=== PATIENT | male | born 1955 | race Caucasian/White ===

== ENCOUNTER → 2020-05-04 07:05 | Outpatient (CLI) | payer OTHER, SELFPAY ==
--- NOTE | 2020-05-04 08:05 | CT_ITS ---
STUDY: LOW DOSE CT LUNG CANCER SCREENING REASON FOR EXAM: Male, 64 years old. TOBACCO USE- QUIT SMOKING 6 MON AGO,55 YR SMOKER X 1-2 PPD, EI=493 RADIATION DOSAGE (If Supplied By Facility): CTDIvol = ( 3.02 ) mGy, DLP = ( 95.15 ) mGycm TECHNIQUE: No contrast was administered. Low dose technique was utilized (average mAS-38 and kVp 120). 1.25 mm axial source images with a slice interval of 1.25-mm were reconstructed in lung windows. 2.5 mm axial source images with a slice interval of 2.5-mm were reconstructed in lung windows. 5.0 mm axial source images with a slice interval of 5.0-mm were reconstructed in soft tissue windows. Nodule measured using lung windows on PACS and/or independent workstation with automated measurement of minimum and maximum diameter. Nodule measurement reported as average diameter rounded to the nearest whole number. Growth is defined as an increase ins size of greater than 1.5 mm. COMPARISON: None. NODULES: No suspicious nodules are seen. Emphysema: Mild increased markings in the superior lateral aspect of the superior segment of the right lower lobe. This is suggestive of a mild degree of scarring. Aorta: Focal atherosclerotic plaque formation of the aortic arch. Coronary arteries: Coronary artery calcification. Mediastinal nodes: Small benign-appearing abdominal lymph nodes. Other chest and abdominal findings: Degenerative changes of the thoracic vertebrae. CT/Low Dose CT Lung Screening IMPRESSION: Lung-RADS category 2 - Continue annual screening with LDCT in 12 months. IMPORTANT NOTES FOR USE: ACR Lung-RADS Version 1.0 Assessment Categories Release Date: March 02, 2014 Category: Coded 0-4 bases on nodule(s) with highest degree of suspicion. Negative screen is defined as categories 1 and 2; a positive screen is defined as categories 3 and 4. Category 3 and 4A nodules that are unchanged on interval CT should be coded as category 2, and individuals returned to screening in 12 months. Category 4X: Category 3 or 4 nodules with additional imaging findings that increase the suspicion of lung cancer, such as spiculation, GGN that doubles in size in 1 year, enlarged lymph notes, etc. Category Modifiers: S (significant finding unrelated to lung cancer) and C (prior history of treated lung cancer) may be added to the 0-4 Lung-RADS Electronically Signed: Gino Skaggs, at 14:24 EDT , Service support ,
--- NOTE | 2020-05-05 08:42 | PFT ---
INTRODUCTION: The patient is a 64-year-old male that presents for pulmonary function studies secondary to a diagnosis of wheezing. Respiratory therapy reports good patient effort. Bronchodilators were used during testing. INTERPRETATION: Forced expiration spirometry demonstrates the presence of a mild large airways obstructive ventilatory defect. There was a significant response to aerosolized bronchodilators. Spirograms are of good quality and do not plateau indicating slow emptying of the lungs. Body plethysmography was performed and reveals an elevated TLC and RV, indicative of underlying hyperinflation and air trapping. Diffusing capacity by single breath CO is within normal limits. IMPRESSION: Partially reversible mild large airways obstructive ventilatory defect with associated hyperinflation and air trapping. Diffusing capacity is preserved.
== END ==
PROVIDERS: PCP Student in an Organized Health Care Education/Training Program; Referring Provider Student in an Organized Health Care Education/Training Program; Visit Provider Student in an Organized Health Care Education/Training Program
DX: Z12.2 Encounter for screening for malignant neoplasm of respiratory organs (principal); R06.2 Wheezing; Z87.891 Personal history of nicotine dependence
CPT/HCPCS: 94060; 94726; 94729; G0297

== ENCOUNTER 2021-05-26 15:18 | Observation (INO) | payer OTHER, SELFPAY ==
[2021-05-26] VITALS (8 sets, daily range): BP systolic 108–141; BP diastolic 60–88; PULSE 54–74; RESP 16–18; TEMP 36.4–36.8; O2SAT 95–100; BMI 27.2
--- NOTE | 2021-05-26 15:19 | HP.PCM_ITS ---
HPI - General General Date of Admission: 05/26/21 HPI Narrative LEILANI GRIDER, is a 65 M who presents direct admit from my office for bleeding and bladder mass and severe abdominal pain. [facility] Medical History (Updated 05/26/21 @ 15:[address] Freddie Hinkle MD) Hearing loss, left Hearing loss, right Home Medications aspirin [Baby Aspirin] 81 mg PO DAILY 05/26/21 [History Last Taken 05/26/21 08:00] atorvastatin 10 mg PO DAILY 05/26/21 [History Last Taken 05/26/21 08:00 10 MG] Allergy/AdvReac Type Severity Reaction Status Date / Time No Known Allergies Allergy Verified 05/26/21 15:15 Social History (Updated 05/26/21 @ 15:13 by Faustino Munoz) Smoking Status: Current every day smoker tobacco type: cigars ROS Constitutional Constitutional: Denies chills, fever(s) or malaise Eyes Eyes: Denies blurry vision or change in vision ENT HEENT: Reports none Cardiovascular Cardiovascular: Denies chest pain or palpitations Respiratory/Chest Respiratory/Chest: Denies cough or shortness of breath with exertion Gastrointestinal Gastrointestinal: Denies abdominal pain, constipation or diarrhea Musculoskeletal Musculoskeletal: Denies back pain, joint stiffness or joint swelling Integumentary Integumentary: Denies dry skin, jaundice, lesions or rash Neurologic Neurologic: Denies confusion, syncope or weakness Psychiatric Psychiatric: Reports none; Denies anxiety or depression Endocrine Endocrinology: Denies excessive sweating, fatigue or flushing Hematologic/Lymphatic Hematologic/Lymphatic: Denies anemia, easy bleeding or easy bruising Vital Signs Vital Signs Vital Signs: Weight Weight: 76.5 kg Body Mass Index (BMI) 27.2 Physical Exam Const alert and oriented x3 General Appearance: cooperative HEENT normocephalic, head/scalp atraumatic, EAC's normal and TM's normal bilaterally Eyes PERRL and EOMs intact bilaterally Pupil: sluggish Neck no lymphadenopathy, supple and no JVD General: trachea midline Lymph Lymphatic: no lymphadenopathy noted, lymphedema and lymphadenopathy Resp normal respiratory effort, normal air movement and clear to auscultation bilaterally Cardio regular rate, regular rhythm and peripheral pulses 2+ throughout GI soft to palpation, non-tender and non-distended Extremity normal capillary refill and no clubbing, cyanosis or edema General Extremity: no tenderness to palpation of joints or extremities Skin no rashes or lesions noted General Skin Exam: turgor normal Lesions: no lesions Rashes: no rashes Neuro CN's II-XII intact bilaterally Speech: speech normal Motor Exam: strength 5/5 throughout; Negative for general weakness Psych thought process normal, cooperative and affect normal Appearance: appropriate Assessment & Plan Assessment/Plan (1) Gross hematuria: (2) Bladder mass: PLAN: plan to take to surgery today for bleeding and bladder mass, npo.
[2021-05-26] MEDS: 0.9% Normal Saline 1,000 ML 125 ML IV ×2 (16:08→20:25)
--- NOTE | 2021-05-26 17:27 | DCINST_ITS ---
Discharge Instructions Diet Discharge Diet: No restrictions Activity Discharge Activity: Return to Normal Activity and May Not Drive (while taking narcotic pain medications.) Dressing / Incision Call your doctor if you observe: Fever of 101 or Higher Follow Up Care Please Follow Up With: Freddie Hinkle MD When: Call [phone] for an appointment Test Results: Test results from this visit will be discussed in further detail at your follow-up appointment, if applicable. Discharge Plan Admission Admit Date/Time: 05/26/21 15:18 Primary Reason for Your Visit: Trans urethral resection of bladder tumor Attending Provider: Freddie Hinkle Primary Care Provider: Paulino Troy NP Discharge Orders/Prescriptions Prescriptions: New ciprofloxacin HCl [Cipro] 500 mg tablet 500 mg PO BID Qty: 10 RF: 0 oxycodone-acetaminophen 5-325 mg tablet 1 tab PO Q6H PRN (Reason: pain) 7 Days Qty: 14 RF: 0 Continued atorvastatin 10 mg Tablet 10 mg PO DAILY RF: 0 Held aspirin 81 mg Tablet,Chewable 81 mg PO DAILY RF: 0 Hold Instructions: Resume on 06/09/21. Referrals / Follow Up: Freddie Hinkle MD [STAFF PHYSICIAN] - Paulino Troy NP, CHEMIST WATER PURIFICATION-C [Primary Care Provider] -
--- NOTE | 2021-05-26 17:35 | BLB_PTH ---
PATIENT: LEILANI GRIDER LOC: [facility] U#:[id number] AGE/SX: 65/M [place] [facility] [place]: Dr. Freddie Hinkle MD : 1955 BED: 1 DIS: 05/27/2021 SPEC #: [id number] RECD: 05/27/21 12:38 STATUS: WANG DHALIWAL #: [id number] DAVI: 05/26/21 17:[address]: Freddie Hinkle DEPT: SURGICAL PATHOLOGY RECD BY: Jv Liriano ENTERED: 05/27/21 14:10 SP TYPE: TURB OTHR DR: Paulino Troy, TESTING LEAD-C Tissues: Urinary bladder, NOS Procedures: Surgery Specimen Level V HEADER OPERATION: Cystoscopy, evacuation hematoma / blood clots, cauterization of bleeding, resection of bladder tumor PRE-OP DIAGNOSIS: Gross hematuria, bladder mass TISSUE SUBMITTED: Bladder tumor MICROSCOPIC DIAGNOSIS Urinary bladder tumor, TUR: Papillary urothelial carcinoma. See cancer checklist below. AM:richa 05/30/2021 COMMENT BLADDER CANCER (TUR) SUMMARY Procedure: Transurethral resection of bladder (TURBT) Tumor site: Not specified Histologic type: Papillary urothelial carcinoma Histologic grade: 1 (WHO low grade) Tumor configuration: Papillary Muscularis propria presence: Detrusor muscle is not present. Lymphvascular invasion: Not identified Tumor extension: Noninvasive, confined to urothelium. Additional pathologic findings: None The above summary is in compliance with [employer] of [employer] Path[employer] (CAP) Cancer Protocols Checklist and [place] Joint Committee on Cancer (AJCC), Staging Manual, 8th Ed. Case has been reviewed in consultation with Dr. Drake who concurs with the above diagnosis. IDC:SJ MICROSCOPIC DESCRIPTION Slides are reviewed. GROSS DESCRIPTION Received in fixative is one container labeled with the patient's name and designated bladder tumor. The specimen consists of three variable sized fragments of christian soft tissue measuring in aggregate 1.5 x 1 x 0.3 cm. Also present in the container are multiple fragments of blood clot measuring in aggregate 7 x 7 x 3 cm. Emu Farmer sections are submitted in four cassettes as follows: 1 ? soft tissue, 2-4 ? blood clot. / STEFAN:richa 05/27/21 TC:0 CPT: 35229
--- NOTE | 2021-05-26 18:28 | OP.PCM_ITS ---
Report of Operation Date of Procedure: 05/26/21 Pre-Operative Diagnosis: Hemorrhagic bladder and bladder tumor bleeding Post-Operative Diagnosis: Same Surgery/Procedure Performed:: Cystoscopy evacuation of blood clots, transurethral resection of a medium-sized bladder tumor in the left lateral wall the bladder Description of Surgical Findings:: This is a 65-year-old male who I saw today in my office for gross hematuria he was in clot retention with clots Slater inside his bladder was not been able to urinate. Because of this we did a cystoscopy in the office which demonstrates a bunch of clots within the bladder he was having severe spasms from this so I just admitted to the patient to the hospital and today were taken to surgery to evacuate all the clots and resect the tumor. Patient was taken back to the operating room at the smooth induction of anesthesia he was placed in dorsolithotomy position. The penis and testicles were prepped and draped in the usual sterile fashion went into the bladder with a 21 Montserratian rigid cystourethroscope upon entering the bladder he had a significant bout of clots within the bladder. I then removed the scope and then went in with a 26 Montserratian continuous flow resectoscope once inside the bladder I used an [employer] evacuator and evacuated out all the clots within the bladder had a significant bowl full clots within the bladder then with continuous irrigation I then went into the bladder and identified a tumor in the left lateral wall the bladder is about a 2-1/2 cm tumor that was actively bleeding I then used a loop bipolar resectoscope and resected this tumor down to the muscle fibers fortunately the tumor did not appear invasive only a superficial tumor that was bleeding. After resecting the tumor and cauterized in the the base of the tumor there was no more bleeding the left and right ureteral orifice were not involved the left ureter orifice was very close to the resection site was not involved. The bladder was somewhat trabeculated no other tumors or stones tumors or stones were seen within the bladder he did have a few diverticuli. The prostate was moderate moderately enlarged but not obstructive. I then drained the bladder but all the specimen and the blood altogether as a specimen for the pathologist and then placed a 20 Montserratian catheter bladder overnight. Patient anesthetic reversed taken back to PACU in good condition. Surgeon: bobby Type of Anesthesia: General Drains: 20 fr Admit VTE Documentation VTE Present on Admission: No VTE Mechan Device Prophylaxis: SCD's
[2021-05-26] MEDS: HYDROcodone Bitartrate/Apap 5/325 Tablet PO (20:26)
[2021-05-26] MEDS: Atorvastatin Calcium 10 MG Tablet PO (22:16)
[2021-05-26] MEDS: Cefazolin 1 GM/50 ML BAG IV (22:16)
[2021-05-27 00:20] VITALS: BP 97/58; PULSE 65; RESP 16; TEMP 37.1; O2SAT 97
[2021-05-27 04:06] VITALS: BP 115/69; PULSE 64; RESP 16; TEMP 36.8; O2SAT 98
[2021-05-27] MEDS: 0.9% Normal Saline 1,000 ML 125 ML IV (04:13)
[2021-05-27] MEDS: Cefazolin 1 GM/50 ML BAG IV (05:49)
--- NOTE | 2021-05-27 07:29 | DS.PCM_ITS ---
Providers Date of Admission: 05/26/21 Primary Care Physician: Paulino Troy NP-C Reason For Visit: GROSS HEMATURIA, URINE RETENTION/BLADDER TUMOR Diagnosis Discharge Diagnosis (1) Gross hematuria: Status: Acute Code(s): R31.0 - Gross hematuria (2) Bladder mass: Status: Acute Code(s): N32.89 - Other specified disorders of bladder Medications at Discharge Home Medications aspirin 81 mg PO DAILY 05/26/21 atorvastatin 10 mg PO DAILY 05/26/21 ciprofloxacin HCl [Cipro] 500 mg PO BID #10 tab 05/26/21 oxycodone-acetaminophen 1 tab PO Q6H PRN 7 Days #14 tab 05/26/21 Hospital Course Summary of Care Provided Hospital Course: Patient was taken to the operating room last night evacuated blood clots cauterized bleeding resected a tumor urine is clear today we will DC Slater and he can go home after he voids. Physical Exam Const alert and oriented x3 General Appearance: cooperative HEENT normocephalic, head/scalp atraumatic, EAC's normal and TM's normal bilaterally Eyes PERRL and EOMs intact bilaterally Pupil: sluggish Neck no lymphadenopathy, supple and no JVD General: trachea midline Lymph Lymphatic: no lymphadenopathy noted, lymphedema and lymphadenopathy Resp normal respiratory effort, normal air movement and clear to auscultation bilaterally Cardio regular rate, regular rhythm and peripheral pulses 2+ throughout GI soft to palpation, non-tender and non-distended Extremity normal capillary refill and no clubbing, cyanosis or edema General Extremity: no tenderness to palpation of joints or extremities Skin no rashes or lesions noted General Skin Exam: turgor normal Lesions: no lesions Rashes: no rashes Neuro CN's II-XII intact bilaterally Speech: speech normal Motor Exam: strength 5/5 throughout; Negative for general weakness Psych thought process normal, cooperative and affect normal Appearance: appropriate Weight / BMI Weight Weight: 76.5 kg Body Mass Index (BMI) 27.2 D/C Instructions Discharge Diet: No restrictions Call your doctor if you observe: Fever of 101 or Higher Please Follow Up With: Freddie Hinkle MD When: Call [phone] for an appointment Meaningful Use Info Meaningful Use Diagnoses (Choose all that apply): None applicable Discharge Plan Admission Admit Date/Time: 05/26/21 15:18 Primary Reason for Your Visit: Trans urethral resection of bladder tumor Attending Provider: Freddie Hinkle Primary Care Provider: Paulino Troy NP Discharge Orders/Prescriptions Prescriptions: New ciprofloxacin HCl [Cipro] 500 mg tablet 500 mg PO BID Qty: 10 RF: 0 oxycodone-acetaminophen 5-325 mg tablet 1 tab PO Q6H PRN (Reason: pain) 7 Days Qty: 14 RF: 0 Continued atorvastatin 10 mg Tablet 10 mg PO DAILY RF: 0 Held aspirin 81 mg Tablet,Chewable 81 mg PO DAILY RF: 0 Hold Instructions: Resume on 06/09/21. Referrals / Follow Up: Freddie Hinkle MD [STAFF PHYSICIAN] - Paulino Troy NP, FISHING ROD MECHANIC-C [Primary Care Provider] - Disposition Discharge Orders: Discharge Patient (Routine); Ordered 05/27/21 Ordered By: Dr. Freddie Hinkle
[2021-05-27 08:36] VITALS: BP 115/61; PULSE 83; RESP 18; TEMP 36.8; O2SAT 98
--- NOTE | 2021-05-27 10:56 | CASEMGMT ---
MELANY [place]ILLA Assessment: Face to Face with pt for initial transition planning/care coordination assessment. RN DAISY introduced self and role at [facility], pt voices understanding and consents to assessment. Pt is A/O x4 and answers all questions appropriately at this time. Pt standing in room, denies need to sit down for assessment. Care providers, pharmacy, and demographics verified/updated. Admitting Dx: gross hematuria, urine retention/bladder tumor PCP:Paulino Troy UNIVERSITY ADMINISTRATIVE ASSISTANT Specialists: nathalia Hinkle Preferred Pharmacy: [facility] Insurance: MMO Prescription Benefit: yes LW/HPOA: Pt denies having LW/DPOA. LNOK: April Spann, Living Arrangements: Pt lives with iin a two story house with 4 steps to enter with rail. Pt reports being I in ADL's and denies concerns at home. Transportation: Pt drives self and denies concerns with transportation. DME/HHC/SNF: Pt has a cane and walker at home but does not use. Pt denies hx of SNF or HHC. Pt states no concerns with going home at time of dc. 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 Pt states no further concerns/needs. CM to follow. Advised pt to ask CM if any further question/concerns/needs arise, voices understanding. Pt Goal: Home Plan: Home with support.
--- NOTE | 2021-05-27 11:34 | CHAPLAIN ---
Type of Pastoral Visit _x__ Initial Visit ___ Follow-up Visit ___ On-call Visit ___ General Patient Visit ___ Spiritual Assessment ___ Family Conference ___ Bereavement ___ Rapid Response ___ Code Blue ___ Other (describe below) Pastoral Care Referral From _x__ Patient ___ Family ___ Nurse ___ Physician ___ Seed Trucker ___ Roll Finisher ___ Other (describe below) Sacrament/Intervention _x__ Active listening ___ Anointing ___ Shinto ___ Bereavement ___ Communion ___ Tejal exploration ___ _x__ Life review _x__ Prayer ___ Reconciliation ___ Sacrament of Sick ___ Supportive presence ___ Wedding ___ Other (describe below) Pastoral Comments patient very happy about speedy resolution and procedure for his need; pt eager to go home too
[2021-05-27 11:42] VITALS: BP 119/56; PULSE 78; RESP 18; TEMP 36.9; O2SAT 99
== END 2021-05-27 11:42 | disposition home or self-care (01) ==
PROVIDERS: Admitting Provider Urology; PCP Nurse Practitioner Primary Care; Visit Provider Urology
PROC: (CPT 52214; principal; 2021-05-26 17:35)
DX: C67.9 Malignant neoplasm of bladder, unspecified (principal); H91.93 Unspecified hearing loss, bilateral; Z79.82 Long term (current) use of aspirin; Z79.899 Other long term (current) drug therapy; F17.290 Nicotine dependence, other tobacco product, uncomplicated
CPT/HCPCS: 52001; 52235; 88307; 96361; 96365; 96366; 99218; 99406; J7030; J7120; G0378; G0379; J2405

== ENCOUNTER → 2021-09-22 | Outpatient (CLI) | payer OTHER, SELFPAY ==
--- NOTE | 2021-09-22 09:24 | CYSPIN_PTH ---
PATIENT: LEILANI GRIDER LOC: [facility] U#:[id number] AGE/SX: 66/M ROOM: RE09/22/[address]: Dr. Freddie Hinkle MD : 1955 BED: DIS: 09/22/2021 SPEC #: [id number] RECD: 09/23/21 10:44 STATUS: WANG REJose #: [id number] DAVI: 09/22/21 09:[address]: Freddie Hinkle DEPT: CYTOLOGY RECD BY: Ivette Chao ENTERED: 09/23/21 10:45 SP TYPE: CYSPIN FL OTHR DR: Paulino Troy, FACING BASTER-C Tissues: Urine Procedures: Pap Stain (control) Special Stain Group II Cytospin Fluid HEADER OPERATION: Not noted PRE-OP DIAGNOSIS: Malignant neoplasm of bladder TISSUE SUBMITTED: Urine for cytology DIAGNOSIS CYTOLOGY Urine for cytology (cytospin): Negative for malignant cells. AM:richa 09/26/2021 CYTOLOGY STUDY Slides are reviewed. CYTOLOGY GROSS Received is 80 ml of yellow gold cloudy fluid labeled with the patient's name and and designated per the requisition as urine. Submitted for cytology preparation. / richa 09/23/2021 TC:5 CPT: 19575
[2021-09-22 18:07] LABS: Cytology, Body Fluid / CSF SEE PATHOLOGY REPORT
== END | disposition home or self-care (01) ==
LOC: LABSPEC 17:08
PROVIDERS: PCP Nurse Practitioner Primary Care; Visit Provider Urology
DX: C67.2 Malignant neoplasm of lateral wall of bladder (principal)
CPT/HCPCS: 88108; 88313

== ENCOUNTER 2022-01-05 16:33 | Outpatient (CLI) | payer OTHER, SELFPAY ==
--- NOTE | 2022-01-05 08:45 | BLA_PTH ---
PATIENT: LEILANI GRIDER LOC: [facility] U#:[id number] AGE/SX: 66/M ROOM: RE01/05/[address]: Dr. Freddie Hinkle MD : 1955 BED: DIS: 01/05/2022 SPEC #: [id number] RECD: 01/06/22 09:16 STATUS: WANG REJose #: [id number] DAVI: 01/05/22 08:[address]: Freddie Hinkle DEPT: SURGICAL PATHOLOGY RECD BY: Ivette Chao ENTERED: 01/06/22 09:16 SP TYPE: BLADDER BX OTHR DR: Paulino Troy, 911 EMERGENCY SERVICES DISPATCHER-C Tissues: Urinary bladder, NOS Procedures: Surgery Specimen Level IV HEADER OPERATION: Bladder biopsy PRE-OP DIAGNOSIS: L67.2 TISSUE SUBMITTED: Bladder biopsy MICROSCOPIC DIAGNOSIS Bladder, biopsy: Noninvasive papillary urothelial carcinoma, grade 1/3. See comment. SJ:richa 01/09/2022 COMMENT Detrusor muscle is not present in the specimen. Angiolymphatic invasion is not identified. Please make reference to previous specimen ([id number]) urinary bladder tumor, TUR with diagnosis of ?papillary urothelial carcinoma.? Case has been reviewed in consultation with Dr. Baldwin who concurs with the above diagnosis. IDC:AM MICROSCOPIC DESCRIPTION Slides are reviewed. GROSS DESCRIPTION Received in fixative is one container labeled with the patient's name and designated bladder biopsy. The specimen consists of one irregular fragment of light christian soft tissue measuring 0.1 cm in greatest dimension. The specimen is totally submitted in one cassette. / SJ:richa 01/06/2022 TC:0 CPT: 36287
== END 2022-01-05 23:59 | disposition home or self-care (01) ==
LOC: LABSPEC 16:34
PROVIDERS: PCP Nurse Practitioner Primary Care; Visit Provider Urology
DX: C67.2 Malignant neoplasm of lateral wall of bladder (principal)
CPT/HCPCS: 88305

== ENCOUNTER → 2022-04-11 | Outpatient (CLI) | payer OTHER, SELFPAY ==
--- NOTE | 2022-04-11 08:45 | BLA_PTH ---
PATIENT: LEILANI GRIDER LOC: [facility] U#:[id number] AGE/SX: 66/M ROOM: RE04/11/[address]: Dr. 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 See comment. STEFAN:richa 04/13/2022 COMMENT Lamina propria invasion is not identified. Detrusor muscle is not present in the specimen. No angiolymphatic invasion is noted. Please make reference to previous specimens ([id number]) urinary bladder tumor, TUR with diagnosis of ?papillary urothelial carcinoma? and ([id number]) bladder, biopsy with diagnosis of ?noninvasive papillary urothelial carcinoma.? MICROSCOPIC DESCRIPTION Slides are reviewed. GROSS DESCRIPTION Received in fixative is one container labeled with the patient's name and designated bladder biopsy. The specimen consists of one irregular fragment of light christian soft tissue that measures 0.3 x 0.2 x 0.1 cm. The specimen is totally submitted in one cassette. / SJ:richa 04/12/2022 TC:0 CPT: [id number]
== END | disposition home or self-care (01) ==
LOC: LABSPEC 16:03
PROVIDERS: PCP Nurse Practitioner Primary Care; Referring Provider Urology; Visit Provider Urology
DX: C67.2 Malignant neoplasm of lateral wall of bladder (principal)
CPT/HCPCS: 88305

== ENCOUNTER → 2023-11-06 | Outpatient (CLI) | payer MEDICARE, OTHER, SELFPAY ==
--- NOTE | 2023-11-06 17:48 | CT_ITS ---
EXAM: CT ABDOMEN AND PELVIS WITHOUT AND WITH INTRAVENOUS CONTRAST CLINICAL INDICATION: HEMATURIA . Bladder cancer. TECHNIQUE: Helically acquired images were obtained of the abdomen and pelvis without and with intravenous contrast. This CT exam was performed using one or more of the following dose reduction techniques: automated exposure control, adjustment of the mA and/or kV according to patient size, and/or use of iterative reconstruction technique. CONTRAST: IV 100mL Isovue-300 RADIATION DOSE: CTDIvol = 15.28 mGy, DLP = 1849.50 mGy-cm COMPARISON: No relevant prior studies available. FINDINGS: LOWER THORAX: Unremarkable. Lung bases are clear. No cardiomegaly. No significant pericardial effusion. ABDOMEN: LIVER: There is hepatomegaly. GALLBLADDER AND BILE DUCTS: Unremarkable. No calcified gallstones. No gallbladder distention or wall edema. No intra- or extrahepatic biliary ductal dilation. PANCREAS: Unremarkable. No focal cystic or solid mass. SPLEEN: Unremarkable. Normal size without focal cystic or solid mass. ADRENALS: Unremarkable. No nodules. KIDNEYS AND URETERS: Unremarkable. Normal renal size and position. No hydronephrosis. STOMACH AND BOWEL: Evaluation of the GI tract is limited by absence of oral contrast. Cannot exclude stomach wall thickening. No dilated loops of bowel or evidence for obstruction. Cannot exclude segmental thickening of the louis of the small or large bowel. Cannot exclude enteritis or colitis. Moderate diffuse fecal retention. Diverticulosis without definite diverticulitis. Appendix within normal limits. PELVIS: APPENDIX: No evidence of acute appendicitis. BLADDER: Markedly abnormal bladder. There is a Slater catheter. Bladder is incompletely distended but even so there appears to be marked wall thickening and cannot exclude intraluminal contents which could be blood or mass. Apparently patient is known to have bladder cancer, and cystoscopy should be considered. 2.6 cm diverticulum of the left side of the bladder. REPRODUCTIVE: Unremarkable as visualized. No mass. ABDOMEN and PELVIS: INTRAPERITONEAL SPACE: Unremarkable. No ascites or other fluid collection. No free air. BONES/JOINTS: Unremarkable. No suspicious lytic or blastic abnormality. SOFT TISSUES: Unremarkable. No discrete abdominal or pelvic wall hernia. VASCULATURE: Prominent calcified plaque of the aorta and iliac arteries. No aneurysm. LYMPH NODES: Unremarkable. No enlarged lymph nodes. CT/CT Abd/Pelvis W/WO Contrast IMPRESSION: Abnormal bladder suboptimally evaluated on this noncontrast exam. Marked diffuse wall thickening and possible intraluminal contents. Cystoscopy should be considered. Electronically Signed: Bennett Owens MD at 20:01 EST ,
[2023-11-06 18:15] LABS: CREATININE FINGERSTICK 1.4 mg/dL (0.70-1.30)
--- OUTSIDE RECORDS SUMMARY | 2023-11-06 18:42 | XMS RPT_ITS | CCD ---
Author Name Unknown Address [address] [place] [address] Organization [facility] Care Team Providers Care Celery Wrapper Name Role Phone DANNY NAIK, CELINA Primary Care Physician ([phone] HAKEEM SCHERER, BA Alarcon Attending Unavail able CELINA SLAUGHTER Primary Care Unavailabl e CAROLE DOVE, DR TROY Cotter Attending Unavailable CELINA SLAUGHTER Primary Care Unavailabl e Medications Current Medications Medication Drug Class(es) Dates Sig (Normalized) Sig (Original) acetaminophen 500 mg oral tablet (2 sources) Start: 06-28-2020 Tylenol Extra Strength 500 mg oral tablet Dose : 1,000 mg = 2 tab(s), Oral, q4h, PRN as needed for pain, # 120 tab(s), 0 Refill(s) Start Date: 06/28/20 Status: Ordered aspirin 81 mg delayed release oral tablet (2 sources) Platelet Aggregation Inhibitor, Nonsteroidal Anti-inflammatory Drug Start: 04-28-2021 aspirin 81 mg oral delayed release tablet Dose : 81 mg = 1 tab(s), Oral, qDay, 0 Refill(s) Start Date: 04/28/21 Status: Ordered atorvastatin 10 mg oral tablet (2 sources) HMG-CoA Reductase Inhibitor Start: 09-01-2021 atorvastatin 10 mg oral tablet Dose : 10 mg = 1 tab(s), Oral, qDay, # 90 tab(s), 3 Refill(s), Pharmacy: [facility]/pharmacy #[id number], Hyperlipidemia, 166.37, cm, 04/28/21 8:10:00 EDT, Height, kg, 04/28/21 8:10:00 EDT, Dosing Weight Start Date: 09/01/21 Status: Ordered cephalexin 500 mg oral capsule (1 source) Cephalosporin Antibacterial Start: 10-29-2023 End: 11-08-2023 cephalexin 500 mg oral capsule Dose : 500 mg = 1 cap(s), Oral, QID, Take with a probiotic, X 10 day(s), # 40 cap(s), 0 Refill(s), 11/08/23 5:53:00 PM EST, 73.3 Start Date: 10/29/23 Stop Date: 11/08/23 Status: Ordered Problems Problem Classification Problem Date Documented Da te Episodic/Chronic Acute and chronic tonsillitis (2 sources) Exudate on tonsils 04-14-2020 Chronic Cancer; other and unspecified primary (2 sources) H/O: malignant neoplasm 03-30-2022 Episodic Chronic obstructive pulmonary disease and bronchiectasis (2 sources) Pulmonary emphysema 05-05-2020 Chronic Results Test Name Value Interpretation Reference Range Facil ity Vital Signs Date Time Vital Sign Value Performing Clinician Faci litjoslyn 10-29-2023 18:50-0500 Diastolic Blood Pressure Non-Invasive 82 mm[Hg] DR TROY LAM DO [facility] 10-29-2023 18:50-0500 Heart rate 63 /min DR TROY LAM DO [facility] 10-29-2023 18:50-0500 Reason For Taking VItal Signs DR TROY LAM DO [facility] 10-29-2023 18:50-0500 Respiratory rate 18 /min DR TROY LAM DO [facility] 10-29-2023 18:50-0500 Systolic Blood Pressure Non-Invasive 129 mm[Hg] DR TROY LAM DO [facility] 10-29-2023 16:45-0500 Body temperature 98.42 [degF] DR TROY LAM DO [facility] 10-29-2023 16:45-0500 Diastolic Blood Pressure Non-Invasive 80 mm[Hg] DR TROY LAM DO [facility] 10-29-2023 16:45-0500 Heart rate 68 /min DR TROY LAM DO [facility] 10-29-2023 16:45-0500 Respiratory rate 18 /min DR TROY LAM DO [facility] 10-29-2023 16:45-0500 Systolic Blood Pressure Non-Invasive 132 mm[Hg] DR TROY LAM DO [facility] Encounters Encounter Date Encounter Type Care Provider Facility Start: 11-02-2023 End: 11-02-2023 Emergency department patient visit BA PALACIO MD Facility:B Start: 10-29-2023 End: 10-29-2023 Emergency department patient visit DR TROY LAM DO Facility:B Start: 10-29-2023 End: 10-29-2023 Emergency department patient visit DR TROY LAM DO [facility] Start: 03-30-2022 End: 03-30-2022 Patient encounter procedure CELINA DELGADO SEARCH ANALYST-GARDENING INSTRUCTOR [facility] Procedures Date Procedure Procedure Detail Performing Clinician Finger structure (body structure) CELINA DELGADO SEARCH ANALYST-GARDENING INSTRUCTOR Immunizations Immunization Date Immunization Notes Care Provider Fa cili 07-28-2021 SARS-CoV-2 mRNA (tozinameran) vaccine CELINA DELGADO SEARCH ANALYST-GARDENING INSTRUCTOR [facility] 06-30-2021 SARS-CoV-2 mRNA (tozinameran) vaccine CELINA DELGADO SEARCH ANALYST-GARDENING INSTRUCTOR [facility] Payers Date Payer Category Payer Private Health Insurance [id number] 1955 Unknown [id number] 1955 Unknown [id number] Social History Date Type Detail Facility Start: 03-30-2022 End: 10-29-2023 Tobacco smoking status Ex-smoker (finding) [facility] Sex Assigned At Male [facility] Functional Status Date Assessment Result Facility 10-29-2023 Functional Status Standard Safet y ID band on, Call device within reach, Bed in low position, Wheels locked, Bedside Cart Locked, Visitor at bedside, Safety level maintained [facility] 10-29-2023 Functional Status [facility] Mental Status Date Assessment Result Facility 10-29-2023 Mental Status Orientation Oriented x 4 [facility] 10-29-2023 Mental Status [facility] Clinical Note 11-01-2023 Note Date & Type Note Facility 11-01-2023 Note . MICRO - Microbiology PROCEDURE: Urine Culture [*1] SOURCE: Urine, Clean Catch BODY SITE: COLLECTED DATE/TIME: 10/29/2023 17:08 EST RECEIVED DATE/TIME: 10/30/2023 13:37 EST START DATE/TIME: 10/30/2023 13:37 EST FREE TEXT SOURCE: FINAL REPORTS Final Report [] Verified Date/Time/Personnel: 11/01/2023 07:41 EST No growth at 48 hours. PRELIMINARY REPORTS Preliminary Report [] Verified Date/Time/Personnel: 10/31/2023 08:48 EST No growth to date Performing Locations *1: This test was performed at: [facility], [address] [place] [address], [facility] , [facility] Discharge instructions 10-29-2023 Note Date & Type Note Facility 10-29-2023 Hospital Discharg e instructions Patient Education 10/29/2023 17:53:48 Bladder Infection, Male (Adult) Bladder Infection, Male (Adult) You have a bladder infection. Urine is normally free of bacteria. But bacteria can get into the urinary tract from the skin around the rectum or it may travel in the blood from elsewhere in the body. This is called a urinary tract infection (UTI). An infection can occur anywhere in the urinary tract. It could be in a kidney (pyelonephritis)or in the bladder (cystitis) and urethra (urethritis). The urethra is the tube that drains the urine from the bladder through the tip of the penis. The most common place for a UTI is in the bladder. This is called a bladder infection. Most bladder infections are easily treated. They are not serious unless the infection spreads up to the kidney. The terms bladder infection, UTI, and cystitis are often used to describe the same thing, but they aren t always the same. Cystitis is an inflammation of the bladder. The most common cause of cystitis is an infection. Keep in mind: Infections in the urine are called UTIs. Cystitis is usually caused by a UTI. Not all UTIs and cases of cystitis are bladder infections. Bladder infections are the most common type of cystitis. Symptoms of a bladder infection The infection causes inflammation in the urethra and bladder. This inflammation causes many of the symptoms. The most common symptoms of a bladder infection are: Pain or burning when urinating Having to go more often than usual Feeling like you need to go right away Only a small amount comes out Blood in urine Discomfort in your belly (abdomen), usually in the lower abdomen, above the pubic bone Cloudy, strong, or bad smelling urine Unable to urinate (retention) Urinary incontinence Fever Loss of appetite Older adults may also feel confused. Causes of a bladder infection Bladder infections are not contagious. You can't get one from someone else, from a toilet seat, or from sharing a bath. The most common cause of bladder infections is bacteria from the bowels. The bacteria get onto the skin around the opening of the urethra. From there they can get into the urine and travel up to the bladder. This causes inflammation and an infection. This usually happens because of: An enlarged prostate Poor cleaning of the genitals Procedures that put a tube in your bladder, like a Slater catheter Bowel incontinence Older age Not emptying your bladder (The urine stays there, giving the bacteria a chance to grow.) Dehydration (This allows urine to stay in the bladder longer.) Constipation (This can cause the bowels to push on the bladder or urethra and keep the bladder from emptying.) Treatment Bladder infections are treated with antibiotics. They usually clear up quickly without complications. Treatment helps prevent a more serious kidney infection. Medicines Medicines can help in the treatment of a bladder infection: You may have been given phenazopyridine to ease burning when you urinate. It will cause your urine to be bright orange. It can stain clothing. You may have been prescribed antibiotics. Take this medicine until you have finished it, even if you feel better. Taking all of the medicine will make sure the infection has cleared. You can use acetaminophen or ibuprofen for pain, fever, or discomfort, unless another medicine was prescribed. You can also alternate them, or use both together. They work differently and are a different class of medicines, so taking them together is not an overdose. If you have chronic liver or kidney disease, talk with your healthcare provider before using these medicines. Also talk with your provider if you ve had a stomach ulcer or GI bleeding or are taking blood thinner medicines. Home care Here are some guidelines to help you care for yourself at home: Drink plenty of fluids, unless your healthcare provider told you not to. Fluids will prevent dehydration and flush out your bladder. Use good personal hygiene. Wipe from front to back after using the toilet, and clean your penis regularly. If you aren t circumcised, retract the foreskin when cleaning. Urinate more frequently, and don t try to hold it in for long periods of time, if possible. Wear loose-fitting clothes and cotton underwear. Avoid tight-fitting pants. This helps keep you clean and dry. Change your diet to prevent constipation. This means eating more fresh foods and more fiber, and less junk and fatty foods. Avoid sex until your symptoms are gone. Avoid caffeine, alcohol, and spicy foods. These can irritate the bladder. Follow-up care Follow up with your healthcare provider, or as advised if all symptoms have not cleared up within 5 days. It is important to keep your follow-up appointment. You can talk with your provider to see if you need more tests of the urinary tract. This is especially important if you have infections that keep coming back. If a culture was done, you will be told if your treatment needs to be changed. If directed, you can call to find out the results. If X-rays were taken, you will be told of any findings that may affect your care. Call 911 Call 911 if any of these occur: Trouble breathing Difficulty waking up Feeling confused Fainting or loss of consciousness Rapid heart rate When to seek medical advice Call your healthcare provider right away if any of these occur: Fever of 100.4 F (38 C) or higher, or as directed by your healthcare provider Your symptoms don t improve after 2 days of treatment Back or abdominal pain that gets worse Repeated vomiting, or you aren t able to keep medicine down Weakness or dizziness [id number] [employer]. [address] [place] [address]. All rights reserved. This information is not intended as a substitute for professional medical care. Always follow your healthcare professional's instructions. 10/29/2023 17:02:33 Slater Catheter, Care Slater Catheter Care A Slater catheter is a rubber tube that is placed through the urethra (opening where urine comes out) and into the bladder. This helps drain urine from the bladder. There is a small balloon on the end of the tube that is inflated after insertion. This keeps the catheter from sliding out of the bladder. A Slater catheter is used to treat urinary retention (unable to pass urine). It is also used when there is incontinence (loss of bladder control). Home care Finish taking any prescribed antibiotic even if you are feeling better before then. It is important to keep bacteria from getting into the collection bag. Do not disconnect the catheter from the collection bag. Use a leg band to secure the drainage tube, so it does not pull on the catheter. Drain the collection bag when it becomes full using the drain spout at the bottom of the bag. Do not try to pull or remove your catheter. This will injure your urethra. It must be removed by your healthcare provider or nurse. Follow-up care Follow up with your healthcare provider as advised for repeat urine testing and catheter removal or replacement. When to seek medical advice Call your healthcare provider right away if any of these occur: Fever of 100.4 F (38 C) or higher, or as directed by your healthcare provider Bladder pain or fullness Abdominal swelling, nausea or vomiting, or back pain Blood or urine leakage around the catheter Bloody urine coming from the catheter (if a new symptom) Catheter falls out Catheter stops draining for 6 hours Weakness, dizziness, or fainting [id number] [employer]. [address] [place] [address]. All rights reserved. This information is not intended as a substitute for professional medical care. Always follow your healthcare professional's instructions. Follow Up Care 10/29/2023 16:44:06 With:ISAEL ACEVEDO MD, [facility] Address: [address] [place] [phone] When:2-4 days [facility] Emergency department Discharge summary 10-29-2023 Note Date & Type Note Facility 10-29-2023 Emergency department Discharge summary Discharge Instructions Thank you for allowing [facility] to assist you with your healthcare needs. The following is important discharge information regarding your hospital visit. Diagnosis from Today's Visit Urinary retention What to Do Next Instructions from Your Care Team No qualifying data available. Post Acute Orders No qualifying data available. You Need to Schedule the Following Appointments Follow Up with ISAEL ACEVEDO MD, [facility] When Within 2-4 days Where: [address] [place] [id number] [phone] Allergies [facility]A Medications Please ask your primary doctor or pharmacist before taking any other medication not listed, including over the counter drugs, herbal medications, vitamins and or supplements as they may interact with your home medications. What How Much When Why Instructions Last Dose New cephalexin (cephalexin 500 mg oral capsule) 1 cap by mouth Four (4) times a day Duration: 10 Days Take with a probiotic Printed Prescription Unchanged acetaminophen (Tylenol Extra Strength 500 mg oral tablet) 2 tab(s) by mouth Every 4 hours as needed for as needed for pain Unchanged aspirin (aspirin 81 mg oral delayed release tablet) 1 tab(s) by mouth Once a day Unchanged atorvastatin (atorvastatin 10 mg oral tablet) 1 tab(s) by mouth Once a day Hyperlipidemia Please take this list to your next doctor s visit. Bring all medications you take, including over the counter medications, herbals and other supplements with you to your doctor s visit. Patients and families are reminded to discard old lists and to update any records with all medication providers or retail pharmacies. Education Materials Bladder Infection, Male (Adult) You have a bladder infection. Urine is normally free of bacteria. But bacteria can get into the urinary tract from the skin around the rectum or it may travel in the blood from elsewhere in the body. This is called a urinary tract infection (UTI). An infection can occur anywhere in the urinary tract. It could be in a kidney (pyelonephritis)or in the bladder (cystitis) and urethra (urethritis). The urethra is the tube that drains the urine from the bladder through the tip of the penis. The most common place for a UTI is in the bladder. This is called a bladder infection. Most bladder infections are easily treated. They are not serious unless the infection spreads up to the kidney. The terms bladder infection, UTI, and cystitis are often used to describe the same thing, but they aren t always the same. Cystitis is an inflammation of the bladder. The most common cause of cystitis is an infection. Keep in mind: Infections in the urine are called UTIs. Cystitis is usually caused by a UTI. Not all UTIs and cases of cystitis are bladder infections. Bladder infections are the most common type of cystitis. Symptoms of a bladder infection The infection causes inflammation in the urethra and bladder. This inflammation causes many of the symptoms. The most common symptoms of a bladder infection are: Pain or burning when urinating Having to go more often than usual Feeling like you need to go right away Only a small amount comes out Blood in urine Discomfort in your belly (abdomen), usually in the lower abdomen, above the pubic bone Cloudy, strong, or bad smelling urine Unable to urinate (retention) Urinary incontinence Fever Loss of appetite Older adults may also feel confused. Causes of a bladder infection Bladder infections are not contagious. You can't get one from someone else, from a toilet seat, or from sharing a bath. The most common cause of bladder infections is bacteria from the bowels. The bacteria get onto the skin around the opening of the urethra. From there they can get into the urine and travel up to the bladder. This causes inflammation and an infection. This usually happens because of: An enlarged prostate Poor cleaning of the genitals Procedures that put a tube in your bladder, like a Slater catheter Bowel incontinence Older age Not emptying your bladder (The urine stays there, giving the bacteria a chance to grow.) Dehydration (This allows urine to stay in the bladder longer.) Constipation (This can cause the bowels to push on the bladder or urethra and keep the bladder from emptying.) Treatment Bladder infections are treated with antibiotics. They usually clear up quickly without complications. Treatment helps prevent a more serious kidney infection. Medicines Medicines can help in the treatment of a bladder infection: You may have been given phenazopyridine to ease burning when you urinate. It will cause your urine to be bright orange. It can stain clothing. You may have been prescribed antibiotics. Take this medicine until you have finished it, even if you feel better. Taking all of the medicine will make sure the infection has cleared. You can use acetaminophen or ibuprofen for pain, fever, or discomfort, unless another medicine was prescribed. You can also alternate them, or use both together. They work differently and are a different class of medicines, so taking them together is not an overdose. If you have chronic liver or kidney disease, talk with your healthcare provider before using these medicines. Also talk with your provider if you ve had a stomach ulcer or GI bleeding or are taking blood thinner medicines. Home care Here are some guidelines to help you care for yourself at home: Drink plenty of fluids, unless your healthcare provider told you not to. Fluids will prevent dehydration and flush out your bladder. Use good personal hygiene. Wipe from front to back after using the toilet, and clean your penis regularly. If you aren t circumcised, retract the foreskin when cleaning. Urinate more frequently, and don t try to hold it in for long periods of time, if possible. Wear loose-fitting clothes and cotton underwear. Avoid tight-fitting pants. This helps keep you clean and dry. Change your diet to prevent constipation. This means eating more fresh foods and more fiber, and less junk and fatty foods. Avoid sex until your symptoms are gone. Avoid caffeine, alcohol, and spicy foods. These can irritate the bladder. Follow-up care Follow up with your healthcare provider, or as advised if all symptoms have not cleared up within 5 days. It is important to keep your follow-up appointment. You can talk with your provider to see if you need more tests of the urinary tract. This is especially important if you have infections that keep coming back. If a culture was done, you will be told if your treatment needs to be changed. If directed, you can call to find out the results. If X-rays were taken, you will be told of any findings that may affect your care. Call 911 Call 911 if any of these occur: Trouble breathing Difficulty waking up Feeling confused Fainting or loss of consciousness Rapid heart rate When to seek medical advice Call your healthcare provider right away if any of these occur: Fever of 100.4 F (38 C) or higher, or as directed by your healthcare provider Your symptoms don t improve after 2 days of treatment Back or abdominal pain that gets worse Repeated vomiting, or you aren t able to keep medicine down Weakness or dizziness [phone] [employer]. [address] [place] [address], [place] [address]. All rights reserved. This information is not intended as a substitute for professional medical care. Always follow your healthcare professional's instructions. Slater Catheter Care A Slater catheter is a rubber tube that is placed through the urethra (opening where urine comes out) and into the bladder. This helps drain urine from the bladder. There is a small balloon on the end of the tube that is inflated after insertion. This keeps the catheter from sliding out of the bladder. A Slater catheter is used to treat urinary retention (unable to pass urine). It is also used when there is incontinence (loss of bladder control). Home care Finish taking any prescribed antibiotic even if you are feeling better before then. It is important to keep bacteria from getting into the collection bag. Do not disconnect the catheter from the collection bag. Use a leg band to secure the drainage tube, so it does not pull on the catheter. Drain the collection bag when it becomes full using the drain spout at the bottom of the bag. Do not try to pull or remove your catheter. This will injure your urethra. It must be removed by your healthcare provider or nurse. Follow-up care Follow up with your healthcare provider as advised for repeat urine testing and catheter removal or replacement. When to seek medical advice Call your healthcare provider right away if any of these occur: Fever of 100.4 F (38 C) or higher, or as directed by your healthcare provider Bladder pain or fullness Abdominal swelling, nausea or vomiting, or back pain Blood or urine leakage around the catheter Bloody urine coming from the catheter (if a new symptom) Catheter falls out Catheter stops draining for 6 hours Weakness, dizziness, or fainting [phone] [employer]. [address] [place] [address], [place] [address]. All rights reserved. This information is not intended as a substitute for professional medical care. Always follow your healthcare professional's instructions. Additional Information VACCINATE! IT SAVES LIVES! Members of the community who have not yet received the COVID-19 vaccine and would like to receive it can visit one of [facility] vaccine clinics. There are many vaccine clinic locations within the [facility]. For locations and available times, please visit [email or web address] It is important to note that some COVID mobile vaccine clinics are held outdoors and may be canceled in rainy or stormy conditions. To learn more about pediatric vaccinations (ages 5-11), we invite you to visit the [facility] webpage. [email or web address] To learn more about the COVID-19 vaccine, we invite you to visit the CDC website for a list of frequently asked questions. https://www.cdc.gov/coronavirus/2 019-ncov/vaccines/faq.html [facility] Patient Portal Access Instructions: Stay connected with your healthcare team and access your personal medical information anytime with the [facility] Patient Portal. If you would like a full copy of your medical records please contact the [facility] Medical Records Department Sunday through Sunday between 8a.m. and 4:30p.m. Please follow the directions below to access the portal: 1.Access the email account you provided upon registration to the hospital.2.Look for an invitation email from [facility].3.Open the email and access the invitation link: Accept Invitation to [facility]4.Fill in the required tierney to create your account. Sign into [email or web address] with your username and password that you created in the above steps to stay up to date. You can then view a summary of results, a summary of your visits, and the ability to download your summaries to your computer or send the information securely to a physician. Remember that your healthcare information is confidential, so carefully consider who you will allow to register on the [facility] Patient Portal for access to your information. You can also access the [facility] Patient Portal on the [employer] kathy. Simply click on Health Records under Health Data and then click on the [employer] logo. HOW TO SAFELY DISPOSE OF PRESCRIPTION MEDICATIONS Please use one of the following methods to safely dispose of your unused medications. 1.Use a drug disposal kit: the drug disposal pouch allows you to safely discard your old and unused drugs. Ask your nurse to give you one when you are discharged.2.Visit a local take-back location: Many local pharmacies and police departments have programs that collect old and unwanted prescription drugs. Call your local pharmacy or go to http://[employer].Q Design/9A2Nj1o to find one close to you.3.Make use of household items: Use cat litter or old coffee grounds to dispose medications if other options are not available. Mix your drugs with these household products, seal them in an airtight container and throw it into the garbage. Call [facility]: [phone] to be sure your drugs can be disposed of in this way. Some medicines may require a different approach.4.Never flush your medications down the toilet. IF YOU HAVE BEEN PRESCRIBED AN OPIOIDS FOR PAIN If you have been prescribed an opioid (such as hydrocodone, oxycodone or morphine), it is critical to understand the possible side effects and risks of opioid pain medications. Even when taken as directed, opioids can have several side effects including: Tolerance, meaning you might need to take more of a medication for the same pain relief. Nausea, vomiting and/or constipation. Sleepiness, dizziness, dry mouth, confusion, depression or itching. Physical dependence, meaning you have withdrawal symptoms when a medication is stopped ? this can develop within a few days. KNOW YOUR RESPONSIBILITIES It is important to know exactly how much and how often to take the opioid pain medications you are prescribed. Never take opioids in higher amounts or more often than prescribed. Do not combine opioids with alcohol or other drugs that cause drowsiness, such as benzodiazepines, also known as benzos, including diazepam and alprazolam, muscle relaxants or sleep aids. Never sell or share prescription opioids. This is illegal. Store opioids in a secure place and out of reach of others (including children, family, friends and visitors). The last page(s) of this document has been signed and retained as a CHART COPY Signatures Patient Education Materials Bladder Infection, Male (Adult) Slater Catheter, Care Medication Leaflets My discharge plan and instructions have been reviewed and explained to me and I,LEILANI GRIDER understand my current condition and have read and understand these discharge instructions. I have received a written copy of the plan/instructions. If I have questions, I am aware that I should contact my doctor. 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: Date/Time: Relationship to Patient: ____ Witness Name/Signature: Date/Time: [facility] Evaluation + Plan note 10-29-2023 Note Date & Type Note Facility 10-29-2023 Evaluation + Plan note Diagnostic Tests PendingUrine Culture 10/29/23 [facility] Evaluation + Plan note Note Date & Type Note Facility Evaluation + Plan note No data available for this section [facility] Hospital Discharge instructions Note Date & Type Note Facility Hospital Discharge instructions No data available for this section [facility] Progress note Note Date & Type Note Facility Progress note No data available for this section [facility] Summary Purpose Family History No Family History Records Found Advance Directives No Advanced Directives Records Found Additional Source Comments Care Team (unrecognized sect ion and content) Personnel Name: CELINA DELGADO Address: [address] [place] [address] [place], [place] [id number] [place] [address] Care Team Personnel Name: BALTES, CELINA SEARCH ANALYST-GARDENING INSTRUCTOR Position: P4 Advanced Spinning Bath Person Member Role: Primary Care Physician Address: Address: [address] [facility] [place] [address]- Name: ISAEL ACEVEDO MD Position: P3 Physician - Urologist Member Role: Urologist Address: Address: [address] [address]- Name: Brenda Gilbert RN Position: ED RN Member Role: ED RN Name: TROY LAM DO Position: ED Physician Member Role: ED Physician Address: Address: [facility] [address] [place] [address]- Care Team Related Persons Name: VI GRIDER Name: LINCOLN GRIDERLAVINIA Desir Address: Home [address] [place], [place] [id number] (unrecognized sect ion and content) No Status Records Found INFORMATION SOURCE (unrecogn ized section and content) FOR RECORDS PERTAINING TO PATIENTS WHO ARE OR HAVE BEEN ENROLLED IN A CHEMICAL DEPENDENCY/SUBSTANCEABUSE PROGRAM, SOME INFORMATION MAY BE OMITTED. This clinical summary was aggregated from multiple sources. Caution should be exercised in using it in the provision of clinical care. This summary normalizes information from multiple sources, and as a consequence, information in this document may materially change the coding, format and clinical context of patient data. In addition, data may be omitted in some cases. CLINICAL DECISIONS SHOULD BE BASED ON THE PRIMARY CLINICAL RECORDS. [facility] [employer] [facility]. provides no warranty or guarantee of the accuracy or completeness of information in this document.
== END | disposition home or self-care (01) ==
LOC: CT 17:47
PROVIDERS: PCP Nurse Practitioner Primary Care; Referring Provider Urology; Visit Provider Urology
DX: R31.0 Gross hematuria (principal); Z85.51 Personal history of malignant neoplasm of bladder
CPT/HCPCS: 74178; Q9967; A4216

== ENCOUNTER 2023-11-26 10:56 | Inpatient (IN) | payer MEDICARE, SELFPAY ==
[2023-11-26] VITALS (14 sets, daily range): BP systolic 123–145; BP diastolic 66–84; PULSE 20–101; RESP 15–24; TEMP 36.4–37.1; O2SAT 96–100; BMI 28.8
--- NOTE | 2023-11-26 11:18 | VDLE_ITS ---
Reason For Study: Bilateral leg pain RIGHT LEFT GSV is normal. GSV is normal. CFV is compressible, spontaneous, phasic, CFV is compressible, spontaneous, phasic, competent and demonstrates normal competent, and demonstrates normal augmentation. augmentation. FV is compressible, spontaneous, phasic, FV is compressible, spontaneous, phasic, competent and demonstrates normal competent and demonstrates normal augmentation. augmentation. POP V is compressible, spontaneous, phasic, POP V is compressible, spontaneous, phasic, competent and demonstrates normal competent and demonstrates normal augmentation. augmentation. T/P Trunk is compressible. T/P Trunk is compressible. PTV is compressible. PTV is compressible. RT PerV is compressible. LT PerV is compressible. Multiple lymph nodes noted in the right Lymph node noted in the left groin. groin. Procedure This is a venous duplex using B-mode, color flow and spectral Doppler. Exam performed portable in ED. A preliminary report was called and/or faxed to ED. VL/Venous Duplex US - Walter Extrem Interpretation Summary No evidence for acute deep venous thrombosis bilateral lower extremities with p atent and compressible bilateral great saphenous veins. Right groin 3.5 x 0.82 cm lymph n ode Right groin 3.21 x 1.01 cm lymph node Left groin 3.22 x 0.96 cm lymph node Ordering Physician: Susana Durham Referring Physician: Paulino Troy Performed By: Letty Desai RVT
--- NOTE | 2023-11-26 11:21 | EDS_ITS ---
HPI <DEBBI Nunez - Last Filed: 11/26/23 14:31> History of Present Illness Chief Complaint: General Illness Narrative Narrative: 68-year-old male has a history of a bladder tumor and presents with Slater catheter complications. He started having this issue in [address] Hinkle. He has had multiple cystoscopies for evaluation of blood clots and tumor resection. A new Slater catheter was placed on and since then he has had daily issues with blood clots and clogging and he has to irrigate at home every day. He saw Dr. Hinkle after Humberto who replaced the Slater but he still has the same issue. Over the last few weeks he has felt generally weak and tired and when he called the urology office today they recommended he come in for evaluation. He has no fever or chills. No chest pain, shortness of breath, or syncope. His urine is gross hematuria. He is not on blood thinners or aspirin. He also complains of a few weeks of bilateral leg swelling worse on the right. They feel tight and uncomfortable but not necessarily painful. He has a history of abdominal blood clots and was on Eliquis for this in the past but no history of extremity DVT. PFS <DEBBI Nunez - Last Filed: 11/26/23 14:31> [facility], [facility] Medical History (Updated 11/26/23 @ 14:31 by DEBBI Nunez) Alcohol use Arthritis Hearing loss, left Hearing loss, right Smoker Wears glasses Home Medications tamsulosin 0.4 mg capsule 0.4 mg PO QHS PROSTATE 11/26/23 [History Last Taken Unknown] Allergy/AdvReac Type Severity Reaction Status Date / Time No Known Allergies Allergy Verified 11/26/23 10:57 Surgical History History of transurethral resection of bladder tumor (TURBT) Hx of hernia repair Hx of surgical amputation of finger Hx of surgical procedure Social History (Updated 05/26/21 @ 15:13 by Faustino Munoz) Smoking Status: Light Smoker (<10/day) ROS <DEBBI Nunez - Last Filed: 11/26/23 14:31> ROS ED ROS Narrative Constitutional: Positive for malaise. CVS: Negative for palpitations, chest pain, syncope. Respiratory: Negative for shortness of breath, cough. GI: Negative for abdominal pain, nausea, vomiting. EXAM <DEBBI Nunez - Last Filed: 11/26/23 14:31> Physical Exam Narrative Exam Narrative: CONST: Patient sitting in no acute distress. EYES: Normal inspection. ENT: Normal inspection, moist mucous membranes. NECK: Normal inspection. RESP: No respiratory distress, faint expiratory wheeze throughout.. CVS: Regular rate and rhythm, no murmur, no gallop. ABD: Soft and nontender, no guarding or rebound, nondistended. Slater catheter leg bag filled with bright red blood. SKIN: Color normal, no rash, warm, dry, intact. EXTREMITIES: Mild edema of both feet right greater than left, no skin changes, no calf tenderness or palpable cords. Full range of motion of all joints, 2+ DP pulses. NEURO: Oriented x4. PSYCH: Normal affect. Const Vital Signs: 11/26/23 10:57 11/26/23 11:31 Temperature 97.9 F Temperature Source Temporal Pulse Rate 101 H Respiratory Rate 24 H Respiratory Effort Short of Breath Respiratory Pattern Normal Blood Pressure 138/66 H Blood Pressure Mean 90 Pulse Ox 100 Oxygen Delivery Method Room Air <Dr. Jaron Nuñez DO - Last Filed: 11/26/23 14:06> Physical Exam Const Vital Signs: 11/26/23 10:57 11/26/23 11:31 Temperature 97.9 F Temperature Source Temporal Pulse Rate 101 H Respiratory Rate 24 H Respiratory Effort Short of Breath Respiratory Pattern Normal Blood Pressure 138/66 H Blood Pressure Mean 90 Pulse Ox 100 Oxygen Delivery Method Room Air MDM <DEBBI Nunez - Last Filed: 11/26/23 14:31> [facility] MDM Narrative Medical decision making narrative: History gathered from: Patient and spouse Patient has indwelling Slater catheter presenting with continuous hematuria, clogging from clots, and is scheduled for bladder tumor surgery with Dr. Hinkle. He is feeling weak and tired. Heart rate is 101 otherwise normal vital signs. His exam is fairly unremarkable except for mild right leg/foot edema. Distal pulses intact. No palpable cords. Hemoglobin is 4.3 with normal WBC and platelets. He has no prior for comparison but I suspect continues gross hematuria has caused his anemia and fatigue. BMP is unremarkable. I ordered a transfusion of 3 units PRBCs. UA is consistent with infection so was cultured and treated with Rocephin. I consulted Dr. Hinkle who agreed with transfusion and recommended admission to the medical team. Regarding lower extremity edema, bilateral leg ultrasounds are negative for DVT. Case was discussed with the hospitalist for admission. I have personally performed a face to face exam and reviewed the PELON Note. I performed a substantive portion of the visit including all aspects of the following. My [place] findings include: History is 68-year-old male who has had a indwelling Slater catheter with hematuria clots is scheduled for bladder surgery with Dr. Hinkle. This swelling and abnormal area skin coloring. No reported fever. Exam is patient with parlor. Slight tachycardia no hypotension. Abdomen is nonsurgical. Slight edema of the feet. Medical Decison Making patient's hemoglobin is substantially low at 4.3. White count 5 platelets 329. Normal creatinine. Urinalysis concerning for infection. Patient agrees to transfusion. Will discuss the case with urology and medicine. Lab Data Attestation: I reviewed the patient's lab results. Labs: Laboratory Results - last 24 hr 11/26/23 11/26/23 11/26/23 11:25 12:06 12:55 WBC 5.0 RBC 2.41 L Hgb 4.3 L* Hct 15.5 L MCV 64.3 L MCH 17.8 L MCHC 27.7 L RDW Std Deviation 50.4 H RDW Coeff of Malgorzata 22.5 H Plt Count 329 MPV 9.3 Immature Gran % (Auto) 0.200 Neut % (Auto) 59.0 Lymph % (Auto) 20.6 Mills % (Auto) 13.2 H Eos % (Auto) 6.0 H Baso % (Auto) 1.0 Absolute Neuts (auto) 2.9 Absolute Lymphs (auto) 1.03 Nucleated RBC % 0.4 Diff Path Review May foll Hypochromasia 3+ Anisocytosis 2+ Tear Drop Cells 1+ Ovalocytes 1+ Schistocytes 2+ H Sodium 142 Potassium 4.2 Chloride 112 H Carbon Dioxide 24.0 Anion Gap 6 BUN 22 H Creatinine 1.03 Estim Creat Clear Calc 70.60 Est GFR (MDRD) Af Amer 93 Est GFR (MDRD) Non-Af 77 BUN/Creatinine Ratio 21.4 H Glucose 110 H Calcium 8.3 L Urine Color Red Urine Clarity Turbid Urine pH 6.5 Ur Specific [place] 1.015 Urine Protein 500 H Urine Glucose (UA) Normal Urine Ketones 5 H Urine Occult Blood 250 H Urine Nitrite Positive H Urine Bilirubin Negative Urine Urobilinogen 1 H Ur Leukocyte Esterase 100 H Urine RBC 50-100 SEEN Urine WBC 10-25 SEEN Ur Squamous Epith Cells 0 SEEN Urine Bacteria 2+ Urine Mucus 0 SEEN Blood Type A POSITIVE Antibody Screen NEGATIVE Crossmatch See Detail <Dr. Jaron Nuñez, DO - Last Filed: 11/26/23 14:06> [facility] MDM Narrative Medical decision making narrative: History gathered from: Patient and spouse Patient has indwelling Slater catheter presenting with continuous hematuria, clogging from clots, and is scheduled for bladder tumor surgery with Dr. Hinkle. He is feeling weak and tired. Heart rate is 101 otherwise normal vital signs. His exam is fairly unremarkable except for mild right leg/foot edema. Distal pulses intact. No palpable cords. Hemoglobin is 4.3 with normal WBC and platelets. He has no prior for comparison but I suspect continues gross hematuria has caused his anemia and fatigue. BMP is unremarkable. I ordered a transfusion of 3 units PRBCs. I consulted Dr. Hinkle who agreed with transfusion and recommended admission to the medical team. Case will be discussed with the hospitalist I have personally performed a face to face assessment of the patient and have reviewed the PELON Note. I performed a substantive portion of the visit including all aspects of the following. My [place] findings include: History is 68-year-old male who has had a indwelling Slater catheter with hematuria clots is scheduled for bladder surgery with Dr. Hinkle. This swelling and abnormal area skin coloring. No reported fever. Exam is patient with parlor. Slight tachycardia no hypotension. Abdomen is nonsurgical. Slight edema of the feet. Medical Decison Making patient's hemoglobin is substantially low at 4.3. White count 5 platelets 329. Normal creatinine. Urinalysis concerning for infection. Patient agrees to transfusion. Will discuss the case with urology and medicine. History & Record Review Discussion w/independent historian: Patient Additional record(s) reviewed:: Prior labs Lab Data Labs: Laboratory Results - last 24 hr 11/26/23 11/26/23 11/26/23 11:25 12:06 12:55 WBC 5.0 RBC 2.41 L Hgb 4.3 L* Hct 15.5 L MCV 64.3 L MCH 17.8 L MCHC 27.7 L RDW Std Deviation 50.4 H RDW Coeff of Malgorzata 22.5 H Plt Count 329 MPV 9.3 Immature Gran % (Auto) 0.200 Neut % (Auto) 59.0 Lymph % (Auto) 20.6 Mills % (Auto) 13.2 H Eos % (Auto) 6.0 H Baso % (Auto) 1.0 Absolute Neuts (auto) 2.9 Absolute Lymphs (auto) 1.03 Nucleated RBC % 0.4 Diff Path Review May foll Hypochromasia 3+ Anisocytosis 2+ Tear Drop Cells 1+ Ovalocytes 1+ Schistocytes 2+ H Sodium 142 Potassium 4.2 Chloride 112 H Carbon Dioxide 24.0 Anion Gap 6 BUN 22 H Creatinine 1.03 Estim Creat Clear Calc 70.60 Est GFR (MDRD) Af Amer 93 Est GFR (MDRD) Non-Af 77 BUN/Creatinine Ratio 21.4 H Glucose 110 H Calcium 8.3 L Urine Color Red Urine Clarity Turbid Urine pH 6.5 Ur Specific [place] 1.015 Urine Protein 500 H Urine Glucose (UA) Normal Urine Ketones 5 H Urine Occult Blood 250 H Urine Nitrite Positive H Urine Bilirubin Negative Urine Urobilinogen 1 H Ur Leukocyte Esterase 100 H Urine RBC 50-100 SEEN Urine WBC 10-25 SEEN Ur Squamous Epith Cells 0 SEEN Urine Bacteria 2+ Urine Mucus 0 SEEN Blood Type A POSITIVE Antibody Screen NEGATIVE Crossmatch See Detail Management Discussion w/another healthcare provider: Hospitalist and Etl Analyst Developer (Urology) Discharge Plan Dx/Rx/DC Orders Clinical Impression: Anemia, Gross hematuria, Bladder mass, Edema of right lower leg, Acute UTI Disposition Disposition: [facility] Discharge Date/Time: 11/26/23 14:03
[2023-11-26 11:44] LABS: Absolute Lymphocyte Count 1.03 X10^3/uL (0.83-4.51); Absolute Neutrophil Count 2.9 X10^3/uL (2.0-7.7); Basophil# 0.05 X10^3/uL; Hematocrit 15.5 % (40-54); Hemoglobin 4.3 g/dL (13.0-16.5); Lymphocyte # 1.03 X10^3/ul (0.83-4.51); Lymphocyte % 20.6 % (19-41); Mean Corp Hgb Conc 27.7 g/dL (32-36); Mean Corpuscular Hgb 17.8 pg (27.0-32.0); Mean Corpuscular Volume 64.3 fL (80-94); Mean Platelet Vol. 9.3 fl (6.2-12.0); Monocyte# 0.66 X10^3/uL; Monocyte% 13.2 % (0-10); NRBC Flagged by Analyzer 0.4 % (0-5); Neutrophil # 2.94 X10^3/uL (2.7-7.7); POSITIVE COUNT YES; POSITIVE MORPHOLOGY YES; Platelet Count 329 K/mm3 (150-450); RBC Distribution Width CV 22.5 % (11.6-14.6); RBC Distribution Width SD 50.4 fl (35.1-43.9); Red Blood Count 2.41 M/mm3 (4.6-6.2)
[2023-11-26 11:48] LABS: Differential Indicated SCAN CRITERIA MET
[2023-11-26 11:58] LABS: Anion Gap 6 (5-15); BUN 22 mg/dL (7-18); BUN/Creat Ratio 21.4 RATIO (10-20); Calcium,Total 8.3 mg/dL (8.5-10.1); Chloride 112 mmol/L (98-107); Creatinine, Serum 1.03 mg/dL (0.70-1.30); EST Glomerular Filtration Rate 77 mL/min (>60); Est Glom Filt Rate - Afr Amer 93 mL/min (>60); Glucose 110 mg/dL (74-106); Potassium 4.2 mmol/L (3.5-5.1); Sodium Level 142 mmol/L (136-145)
[2023-11-26 12:08] LABS: Anisocytosis 2+; Hypochromasia 3+
[2023-11-26 12:09] LABS: Ovalocyte 1+; Tear Drop Cell 1+
[2023-11-26 12:10] LABS: Schistocytes 2+
[2023-11-26 12:58] LABS: Mucous, Urine 0 SEEN /hpf (<or=2+); Squamous Epithelial Cells - UA 0 SEEN /hpf (0-5)
[2023-11-26 13:06] LABS: Color, Urine Red (Yellow); Glucose, Dipstick Normal (Normal); Ketone-Dipstick 5 mg/dl (Negative); Leukocyte Esterase-Dipstick 100 /ul (Negative); Nitrite-Dipstick Positive (Negative); Occult Blood-Urine 250 /ul (Negative); Protein-Dipstick 500 mg/dl (Negative); Specific Gravity, Urine 1.015 (1.002-1.030); Urine Bilirubin Dipstick Negative (Negative); Urine Clarity Turbid (Clear); Urine Urobilinogen 1 mg/dl (Normal); Urine pH 6.5 (5.0 - 8.0)
--- NOTE | 2023-11-26 13:07 | PCM.HP.STD ---
HPI - General General Date of Admission: 11/26/23 Date of Service: 11/26/23 Chief Complaint: Worsening fatigue and weakness HPI Narrative LEILANI GRIDER, is a 68 M who presented to [facility] ED on 11/26/2023 with worsening fatigue and weakness. Patient seen at bedside in the ED, present. Patient has known history of bladder cancer, follows with Dr. Hinkle in the office. Was diagnosed with bladder cancer back in 2020. Was determined to be a slow-growing bladder cancer at that time, no intervention required to this point. However, patient began noticing worsening hematuria around Humberto time and went to the [facility] ED for further evaluation. He had a Slater catheter placed there and saw Dr. Hinkle in the office a few days later. Patient states that Dr. Hinkle performed a cystoscopy to further evaluate his known bladder mass, and plan at that time was to continue the Slater catheter and have surgery with Dr. Hinkle at the end of November for tumor excision. However, he has had significant bleeding and clot formation in the Slater catheter over the last week or so, and over the last several days he has been much more fatigued and weak than his baseline. 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 However over the last 3 days, he has primarily been in bed sleeping due to his fatigue. He has noticed moderate shortness of breath with exertion as well. Denies any chest pain with exertion. Denies any fevers or chills. Denies any abdominal pain or discomfort. He has continued to have good appetite. He is also noticed that his right leg seems a bit more swollen than his left leg, and he has mild pain in the right leg. He otherwise has no acute concerns today. [facility] Medical History (Updated 11/26/23 @ 14:[address] Ervin Anderson, DO) Alcohol use Arthritis Hearing loss, left Hearing loss, right Smoker Wears glasses Home Medications tamsulosin 0.4 mg capsule 0.4 mg PO QHS PROSTATE 11/26/23 [History Last Taken Unknown] Allergy/AdvReac Type Severity Reaction Status Date / Time No Known Allergies Allergy Verified 11/26/23 10:57 Surgical History History of transurethral resection of bladder tumor (TURBT) Hx of hernia repair Hx of surgical amputation of finger Hx of surgical procedure Social History (Updated 05/26/21 @ 15:13 by Faustino Munoz) Smoking Status: Light Smoker (<10/day) ROS Constitutional Constitutional: Reports fatigue, malaise and weakness; Denies chills or fever(s) Eyes Eyes: Denies change in vision Cardiovascular Cardiovascular: Reports dyspnea on exertion; Denies chest pain, lightheadedness or orthopnea Respiratory/Chest Respiratory/Chest: Denies cough, shortness of breath at rest or wheezing Gastrointestinal Gastrointestinal: Denies abdominal pain, constipation, diarrhea, nausea or vomiting Genitourinary Genitourinary: Reports hematuria Musculoskeletal Musculoskeletal: Denies arthralgias or back pain Neurologic Neurologic: Denies focal weakness, headache(s) or numbness Vital Signs Vital Signs Vital Signs: 11/26/23 10:57 11/26/23 11:31 Temperature 97.9 F Temperature Source Temporal Pulse Rate 101 H Respiratory Rate 24 H Respiratory Effort Short of Breath Respiratory Pattern Normal Blood Pressure 138/66 H Blood Pressure Mean 90 Pulse Ox 100 Oxygen Delivery Method Room Air Weight Weight: 81.193 kg Body Mass Index (BMI) 28.8 Physical Exam Const alert, oriented x3, no apparent distress and average body habitus Constitutional Narrative: Pleasant elderly male, pale and fatigued appearing, otherwise sitting up comfortably in bed, conversing normally, no acute distress. General Appearance: cooperative and comfortable HEENT normocephalic, head/scalp atraumatic and nasal mucous membranes and turbinates normal HEENT Narrative: Hard of hearing bilaterally. Eyes PERRL, EOMs intact bilaterally and conjunctivae normal Neck full ROM, no lymphadenopathy and supple Lymph Lymphatic: no lymphadenopathy noted Chest inspection of chest normal Resp normal respiratory effort, normal air movement, no use of accessory muscles and clear to auscultation bilaterally Cardio regular rate, regular rhythm, no murmurs and peripheral pulses 2+ throughout GI normal to inspection, nondistended, normoactive bowel sounds, soft to palpation, non-tender and non-distended Narrative: Dark red blood noted in Slater catheter bag. Bladder / Kidney Exam: catheter in place, bladder normal to palpation and no CVA tenderness Back/Spine normal ROM Extremity normal to inspection Extremity Narrative: +1-2 pitting edema in right lower extremity up to just below the knee, no edema in left lower extremity. Skin no rashes or lesions noted Neuro moves all extremities and no focal motor deficits Speech: speech normal Psych mental status grossly normal Results Lab / Micro Data 11/26/23 11:25 11/26/23 11:25 Labs: Laboratory Results - last 24 hr 11/26/23 11:25: WBC 5.0, RBC 2.41 L, Hgb 4.3 L*, Hct 15.5 L, MCV 64.3 L, MCH 17.8 L, MCHC 27.7 L, RDW Std Deviation 50.4 H, RDW Coeff of Malgorzata 22.5 H, Plt Count 329, MPV 9.3, Immature Gran % (Auto) 0.200, Neut % (Auto) 59.0, Lymph % (Auto) 20.6, [place] % (Auto) 13.2 H, Eos % (Auto) 6.0 H, Baso % (Auto) 1.0, Absolute Neuts (auto) 2.9, Absolute Lymphs (auto) 1.03, Nucleated RBC % 0.4, Diff Path Review May foll, Hypochromasia 3+, Anisocytosis 2+, Tear Drop Cells 1+, Ovalocytes 1+, Schistocytes 2+ H, Sodium 142, Potassium 4.2, Chloride 112 H, Carbon Dioxide 24.0, Anion Gap 6, BUN 22 H, Creatinine 1.03, Estim Creat Clear Calc 70.60, Est GFR (MDRD) Af Amer 93, Est GFR (MDRD) Non-Af 77, BUN/Creatinine Ratio 21.4 H, Glucose 110 H, Calcium 8.3 L 11/26/23 12:06: Crossmatch See Detail 11/26/23 12:55: Urine Color Red, Urine Clarity Turbid, Urine pH 6.5, Ur Specific [place] 1.015, Urine Protein 500 H, Urine Glucose (UA) Normal, Urine Ketones 5 H, Urine Occult Blood 250 H, Urine Nitrite Positive H, Urine Bilirubin Negative, Urine Urobilinogen 1 H, Ur Leukocyte Esterase 100 H Assessment & Plan Assessment/Plan (1) Acute UTI: (2) Gross hematuria: (3) Acute blood loss anemia: (4) Bladder mass: PLAN: Plan Patient is a 68-year-old male who presented to [facility] ED on 11/26/2023 with worsening fatigue and weakness. 1. Acute blood loss anemia secondary to gross hematuria in setting of bladder cancer Hemoglobin 4.3 on admit. No recent hemoglobin values for comparison, last known hemoglobin was 15 back in 03/2022. Presumed secondary to gross hematuria in setting of bladder cancer. Diagnosed with bladder cancer in 2020, follows with Dr. Hinkle. ? Admit under inpatient status to PCU. 3 units packed red blood cells ordered, repeat CBC ordered post transfusion. Urology consulted. Planning for procedure with Dr. Hinkle on Sunday, n.p.o. at midnight on Sunday. Continue Slater catheter, no need for continuous bladder irrigation at this time. Iron studies, B12, folate ordered. PT/INR ordered. 2. Suspected UTI ? UA on admit showed 100 leukocyte esterase, positive nitrites, 2+ bacteria. Notably was recently treated for UTI at end of October with Keflex, no urine culture results available. Urine culture ordered. Will treat empirically with ceftriaxone for now. 3. History of DVT/PE ? Patient reports history of abdominal clots around the time of his bladder cancer diagnosis in 2020. States he was on Eliquis for about 1 year, has been off anticoagulation since then. Notably does have right lower extremity swelling worse than left on admit, but venous Doppler study was negative for DVT. 4. BPH with obstructive symptoms, recent episode of urinary retention requiring Slater catheter placement ? ED visit at [place] at end of October for inability to urinate, found to have greater than 1 L of urine in the bladder. Slater catheter placed at that time, has had in place since then. Urology following as above. Continue home Flomax. DVT prophylaxis: SCDs CODE STATUS: Full code, verified Expected disposition: Home, TBD Total clinical time spent by myself addressing the patient's medical issues, reviewing all the data, and collaborating with patient's care team: 55 minutes. Charges/Coding Visit Charges Inpatient E&M: 13698 Init Hosp L2
--- NOTE | 2023-11-26 13:09 | CON.PCM.UR_ITS ---
HPI Consult Data Date of Consult: 11/26/23 HPI Narrative Reason for Consultation: bleeding bladder mas HPI Narrative: LEILANI GRIDER, is a 68 M who know to have bladder mass presents with low Hct admitted to hospitalist for anemia acute, plan to do surgery TURBT of bladder mass on Sunday. [facility] Medical History (Updated 11/26/23 @ 12:14 by DEBBI Nunez) Alcohol use Arthritis Hearing loss, left Hearing loss, right Smoker Wears glasses Home Medications tamsulosin 0.4 mg capsule 0.4 mg PO QHS PROSTATE 11/26/23 [History Last Taken Unknown] Allergy/AdvReac Type Severity Reaction Status Date / Time No Known Allergies Allergy Verified 11/26/23 10:57 Surgical History History of transurethral resection of bladder tumor (TURBT) Hx of hernia repair Hx of surgical amputation of finger Hx of surgical procedure Social History (Updated 05/26/21 @ 15:13 by Faustino Munoz) Smoking Status: Light Smoker (<10/day) Lab / Micro Data 11/26/23 11:25 11/26/23 11:25 Labs: Laboratory Results - last 24 hr 11/26/23 11:25: WBC 5.0, RBC 2.41 L, Hgb 4.3 L*, Hct 15.5 L, MCV 64.3 L, MCH 17.8 L, MCHC 27.7 L, RDW Std Deviation 50.4 H, RDW Coeff of Malgorzata 22.5 H, Plt Count 329, MPV 9.3, Immature Gran % (Auto) 0.200, Neut % (Auto) 59.0, Lymph % (Auto) 20.6, [place] % (Auto) 13.2 H, Eos % (Auto) 6.0 H, Baso % (Auto) 1.0, Absolute Neuts (auto) 2.9, Absolute Lymphs (auto) 1.03, Nucleated RBC % 0.4, Diff Path Review May foll, Hypochromasia 3+, Anisocytosis 2+, Tear Drop Cells 1+, Ovalocytes 1+, Schistocytes 2+ H, Sodium 142, Potassium 4.2, Chloride 112 H, Carbon Dioxide 24.0, Anion Gap 6, BUN 22 H, Creatinine 1.03, Estim Creat Clear Calc 70.60, Est GFR (MDRD) Af Amer 93, Est GFR (MDRD) Non-Af 77, BUN/Creatinine Ratio 21.4 H, Glucose 110 H, Calcium 8.3 L 11/26/23 12:06: Crossmatch See Detail 11/26/23 12:55: Urine Color Red, Urine Clarity Turbid, Urine pH 6.5, Ur Specific [place] 1.015, Urine Protein 500 H, Urine Glucose (UA) Normal, Urine Ketones 5 H , Urine Occult Blood 250 H, Urine Nitrite Positive H, Urine Bilirubin Negative, Urine Urobilinogen 1 H, Ur Leukocyte Esterase 100 H
[2023-11-26 13:14] LABS: Red Blood Cells-Urine 50-100 SEEN /hpf (0-5); White Blood Cells 10-25 SEEN /hpf (0-5)
[2023-11-26 13:18] LABS: Bacteria 2+ /hpf (None Seen)
--- OUTSIDE RECORDS SUMMARY | 2023-11-26 14:07 | XMS RPT_ITS | CCD ---
Author Name Unknown Address [address] [place] [address] Organization [facility] Care Team Providers Care Bundle Breaker Name Role Phone CELINA SLAUGHTER Primary Care Physician [phone] TAMIA SCHERER, ALEM Cotter Attending Unavailable CELINA SLAUGHTER Primary Care TROY Bales Attending Unavailable CELINA SLAUGHTER Primary Care Unavailabl [...] qDay, # 90 tab(s), 3 Refill(s), Pharmacy: [facility]/pharmacy #[id number], Hyperlipidemia, 166.37, cm, 04/28/21 8:10:00 EDT, Height, [...] Time Vital Sign Value Performing Clinician Faci lity 10-29-2023 18:50-0500 Diastolic Blood Pressure Non-Invasive 82 mm[Hg] DR TROY LAM DO [facility] 10-29-2023 18:50-0500 Heart rate 63 /min DR TROY LAM DO [facility] 10-29-2023 18:50-0500 Reason For Taking VItal Signs DR TROY LAM DO [facility] 10-29-2023 18:50-0500 Respiratory rate 18 /min DR TROY LAM DO [facility] 10-29-2023 18:50-0500 Systolic Blood Pressure Non-Invasive 129 mm[Hg] DR TROY LAM DO [facility] 10-29-2023 16:45-0500 Body temperature 98.42 [degF] DR TROY LAM DO [facility] 10-29-2023 16:45-0500 Diastolic Blood Pressure Non-Invasive 80 mm[Hg] DR TROY LAM DO [facility] 10-29-2023 16:45-0500 Heart rate 68 /min DR TROY LAM DO [facility] 10-29-2023 16:45-0500 Respiratory rate 18 /min DR TROY LAM DO [facility] 10-29-2023 16:45-0500 Systolic Blood Pressure Non-Invasive 132 mm[Hg] DR TROY LAM DO [facility] Encounters Encounter Date Encounter Type Care Provider Facility Start: 11-02-2023 End: 11-02-2023 Emergency department patient visit ALEM CANTRELL MD Facility:B Start: 10-29-2023 End: 10-29-2023 Emergency department patient visit TROY LAM Facility:B Start: 10-29-2023 End: 10-29-2023 Emergency department patient visit DR TROY LAM DO [facility] Start: 03-30-2022 End: 03-30-2022 Patient encounter procedure CELINA DELGADO COMPACT ASSEMBLER-[employer] [facility] Procedures Date Procedure Procedure Detail Performing Clinician Finger structure (body structure) CELINA DELGADO COMPACT ASSEMBLER-[employer] Immunizations Immunization Date Immunization Notes Care Provider Fa [facility] 07-28-2021 SARS-CoV-2 mRNA (tozinameran) vaccine CELINA DELGADO COMPACT ASSEMBLER-[employer] [facility] 06-30-2021 SARS-CoV-2 mRNA (tozinameran) vaccine CELINA DELGADO COMPACT ASSEMBLER-[employer]ICER [facility] Payers Date Payer Category Payer Private Health Insurance [id number] 1955 Unknown [id number] 1955 Unknown [id number] Social History Date Type Detail Facility Start: 03-30-2022 End: 10-29-2023 Tobacco smoking status Ex-smoker (finding) [facility] Sex Assigned At Male [facility] Functional Status Date Assessment Result Facility 10-29-2023 Functional Status Standard Safet y ID band on, Call device within reach, Bed in low position, Wheels locked, Bedside Cart Locked, Visitor at bedside, Safety level maintained [facility] 10-29-2023 Functional Status [facility] spital [facility] Mental Status Date Assessment Result Facility 10-29-2023 Mental Status Orientation Oriented x 4 [facility] 10-29-2023 Mental Status [facility] Clinical Note 11-01-2023 Note Date & Type [...] Locations *1: This test was performed at: [facility], [address] [place] [address], [facility] , [facility] ([place]) Hospital Discharge instructions 10-29-2023 Note Date & [...] to keep medicine down Weakness or dizziness 2027-7973 [employer]. [address] [place] [address], [place] [address]. All rights reserved. This information is not [...] for 6 hours Weakness, dizziness, or fainting 8384-9474 [employer]. [address] [place] [address], [place] [address]. All rights reserved. This information is not intended as a substitute for professional medical care. Always follow your healthcare professional's instructions. Follow Up Care 10/29/2023 16:44:06 With:ISAEL ACEVEDO MD, [facility] [employer] Address: [address] [place] [phone] When:2-4 days [facility] Emergency department Discharge summary 10-29-2023 Note Date & Type Note Facility 10-29-2023 Emergency department Discharge summary Discharge Instructions Thank you for allowing [facility] to assist you with your healthcare needs. The following is important discharge information regarding your hospital visit. Diagnosis from Today's Visit Urinary retention What to Do Next Instructions from Your Care Team No qualifying data available. Post Acute Orders No qualifying data available. You Need to Schedule the Following Appointments Follow Up with ISAEL ACEVEDO MD, [employer] When Within 2-4 days Where: [address] [place] [phone] Allergies NKA Medications Please ask your primary [...] to keep medicine down Weakness or dizziness [employer]. [address] [place] [address], [place] [id number]. All rights reserved. This information is not [...] for 6 hours Weakness, dizziness, or fainting [employer]. [address] [place] [address], [place] [address]. All rights reserved. This information is not intended as a substitute for professional medical care. Always follow your healthcare professional's instructions. Additional Information VACCINATE! IT SAVES LIVES! Members of the community who have not yet received the COVID-19 vaccine and would like to receive it can visit one of [facility] vaccine clinics. There are many vaccine clinic locations within the [facility]. For locations and available times, please visit [email or web address] It is important to note that some COVID mobile vaccine clinics are held outdoors and may be canceled in rainy or stormy conditions. To learn more about pediatric vaccinations (ages 5-11), we invite you to visit the [facility] webpage. [email or web address] [email or web address] To learn more about the COVID-19 vaccine, we invite you to visit the CDC website for a list of frequently asked questions. https://www.cdc.gov/coronavirus/2 019-ncov/vaccines/faq.html [facility] Patient Portal Access Instructions: Stay connected with your healthcare team and access your personal medical information anytime with the [employer] Patient Portal. If you would like a full copy of your medical records please contact the [facility] Medical Records Department Sunday through Sunday between 8a.m. and 4:30p.m. Please follow the directions below to access the portal: 1.Access the email account you provided upon registration to the hospital.2.Look for an invitation email from [facility].3.Open the email and access the invitation link: Accept Invitation to [employer]4.Fill in the required tierney to create your account. Sign into www.[facility] with your username and password that you [...] you will allow to register on the [employer] Patient Portal for access to your information. You can also access the [employer] Patient Portal on the [employer] kathy. Simply click on Health Records under Health Data and then click on the [employer] logo. HOW TO SAFELY DISPOSE OF PRESCRIPTION [...] Call your local pharmacy or go to [email or web address] [email or web address] to find one close to you.3.Make use of household items: Use cat litter or old coffee grounds to dispose medications if other options are not available. Mix your drugs with these household products, seal them in an airtight container and throw it into the garbage. Call [facility]: [phone] to be sure your drugs can be [...] aware that I should contact my doctor. 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 Signature: Date/Time: Relationship to Patient: ____ Witness Name/Signature: Date/Time: [facility] Evaluation + Plan note 10-29-2023 Note Date & Type Note Facility 10-29-2023 Evaluation + Plan note Diagnostic Tests PendingUrine Culture 10/29/23 [facility] Evaluation + Plan note Note Date & Type Note Facility Evaluation + Plan note No data available for this section [facility] Hospital Discharge instructions Note Date & Type Note Facility Hospital Discharge instructions No data available for this section [facility] Progress note Note Date & Type Note Facility Progress note No data available for this section [facility] Summary Purpose Family History No Family History Records Found Advance Directives No Advanced Directives Records Found Additional Source Comments Care Team (unrecognized sect ion and content) Personnel Name: CELINA DELGADO Address: [address] [place] [address] [facility] [place], [place] [address] Care Team Personnel Name: CELINA DELGADO Position: P4 Advanced Head Of Ethics And Compliance Member Role: Primary Care Physician Address: Address: [address] [facility] [place] [address]- Name: ISAEL ACEVEDO MD Position: P3 Physician - Urologist Member Role: Urologist Address: Address: [address] [place] [address] [address] [place] [address]- Name: Brenda Gilbert RN Position: ED RN Member Role: ED RN Name: TROY LAM DO Position: ED Physician Member Role: ED Physician Address: Address: [facility] [address] [place] [address]- Care Team Related Persons Name: MARNIVI Name: VI GRIDER Thang Address: Home [address] [place], [place] [id number] (unrecognized sect ion and content) No Status [...] BE BASED ON THE PRIMARY CLINICAL RECORDS. [employer] provides no warranty or guarantee of the accuracy or completeness of information in this document.
--- OUTSIDE RECORDS SUMMARY | 2023-11-26 14:08 | XMS RPT_ITS | CCD ---
Author Name Unknown Address [address] [place] [address] Organization [facility] Care Team Providers Care Carburetor Expert Name Role Phone CELINA SLAUGHTER Primary Care Physician [phone] TAMIA SCHERER, ALEM Cotter Attending Unavailable CELINA [...] qDay, # 90 tab(s), 3 Refill(s), Pharmacy: [facility]/pharmacy #[id number], Hyperlipidemia, 166.37, cm, 04/28/21 8:10:00 EDT, Height, [...] Non-Invasive 82 mm[Hg] DR TROY LAM DO [facility] 10-29-2023 18:50-0500 Heart rate 63 /min DR TROY LAM DO [facility] 10-29-2023 18:50-0500 Reason For Taking VItal Signs DR TROY LAM DO [facility] 10-29-2023 18:50-0500 Respiratory rate 18 /min DR TROY LAM DO [facility] 10-29-2023 18:50-0500 Systolic Blood Pressure Non-Invasive 129 mm[Hg] DR TROY LAM DO [facility] 10-29-2023 16:45-0500 Body temperature 98.42 [degF] DR TROY LAM DO [facility] 10-29-2023 16:45-0500 Diastolic Blood Pressure Non-Invasive 80 mm[Hg] DR TROY LAM DO [facility] 10-29-2023 16:45-0500 Heart rate 68 /min DR TROY LAM DO [facility] 10-29-2023 16:45-0500 Respiratory rate 18 /min DR TROY LAM DO [facility] 10-29-2023 16:45-0500 Systolic Blood Pressure Non-Invasive 132 mm[Hg] DR TROY LAM DO [facility] Encounters Encounter Date Encounter Type Care Provider Facility Start: 11-02-2023 End: 11-02-2023 Emergency department patient visit ALEM CANTRELL MD Facility:B Start: 10-29-2023 End: 10-29-2023 Emergency department patient visit TROY LAM Facility:B Start: 10-29-2023 End: 10-29-2023 Emergency department patient visit DR TROY LAM DO [facility] Start: 03-30-2022 End: 03-30-2022 Patient encounter procedure CELINA DELGADO COLLABORATING SUPERVISING PHYSICIAN-BANK SECRECY ACT OFFICER [facility] Procedures Date Procedure Procedure Detail Performing Clinician Finger structure (body structure) CELINA DELGADO COLLABORATING SUPERVISING PHYSICIAN-BANK SECRECY ACT OFFICER Immunizations Immunization Date Immunization Notes Care Provider Fa [facility] 07-28-2021 SARS-CoV-2 mRNA (tozinameran) vaccine CELINA DELGADO COLLABORATING SUPERVISING PHYSICIAN-BANK SECRECY ACT OFFICER [facility] 06-30-2021 SARS-CoV-2 mRNA (tozinameran) vaccine CELINA DELGADO COLLABORATING SUPERVISING PHYSICIAN-BANK SECRECY ACT OFFICER [facility] Payers Date Payer Category Payer Private Health Insurance [id number] 1955 Unknown [id number] 1955 Unknown [id number] Social History Date Type Detail Facility Start: 03-30-2022 End: 10-29-2023 Tobacco smoking status Ex-smoker (finding) [facility] Sex Assigned At Male [facility] Functional Status Date Assessment Result Facility 10-29-2023 Functional Status Standard Safet y ID band on, Call device within reach, Bed in low position, Wheels locked, Bedside Cart Locked, Visitor at bedside, Safety level maintained [facility] 10-29-2023 Functional Status [facility] Mental Status Date Assessment Result Facility 10-29-2023 Mental Status Orientation Oriented x 4 [facility] 10-29-2023 Mental Status [facility] Clinical Note 11-01-2023 Note Date & [...] Locations *1: This test was performed at: [facility], [address] [place] [address], [facility] , [facility] Discharge instructions 10-29-2023 Note Date & [...] to keep medicine down Weakness or dizziness [id number] [employer]. [address] [place] [address], [place] [address]. All rights reserved. This information is not [...] for 6 hours Weakness, dizziness, or fainting [id number] [employer]. [address] [place] [address], [place] [address]. All rights reserved. This information is not intended as a substitute for professional medical care. Always follow your healthcare professional's instructions. Follow Up Care 10/29/2023 16:44:06 With:ISAEL ACEVEDO MD, [facility] [employer] [facility] [facility] [facility] Address: [address] [place] [phone] When:2-4 days [facility] Emergency department Discharge summary 10-29-2023 Note Date & Type Note Facility 10-29-2023 Emergency department Discharge summary Discharge Instructions Thank you for allowing [facility] to assist you with your healthcare needs. The following is important discharge information regarding your hospital visit. Diagnosis from Today's Visit Urinary retention What to Do Next Instructions from Your Care Team No qualifying data available. Post Acute Orders No qualifying data available. You Need to Schedule the Following Appointments Follow Up with ISAEL ACEVEDO MD, [employer] When Within 2-4 days Where: [address] [place] [phone] Allergies NKA Medications Please ask your primary [...] keep medicine down Weakness or dizziness [employer]. [address] [place] [address], [place] [id number]. All rights reserved. This information is not [...] 6 hours Weakness, dizziness, or fainting [employer]. [address] [place] [address], [place] [address]. All rights reserved. This information is not intended as a substitute for professional medical care. Always follow your healthcare professional's instructions. Additional Information VACCINATE! IT SAVES LIVES! Members of the community who have not yet received the COVID-19 vaccine and would like to receive it can visit one of [facility] vaccine clinics. There are many vaccine clinic locations within the [facility]. For locations and available times, please visit [email or web address] It is important to note that some COVID mobile vaccine clinics are held outdoors and may be canceled in rainy or stormy conditions. To learn more about pediatric vaccinations (ages 5-11), we invite you to visit the [facility] webpage. [email or web address]/pa [email or web address]-Xdrfi-Werpfthejkc-[email or web address] hvgt-[email or web address]-Raxxeozsy.html To learn more about the COVID-19 vaccine, we invite you to visit the CDC website for a list of frequently asked questions. https://www.cdc.gov/coronavirus/2 019-ncov/vaccines/faq.html [facility] Patient Portal Access Instructions: Stay connected with your healthcare team and access your personal medical information anytime with the [employer] Patient Portal. If you would like a full copy of your medical records please contact the [facility] Medical Records Department Sunday through Sunday between 8a.m. and 4:30p.m. Please follow the directions below to access the portal: 1.Access the email account you provided upon registration to the hospital.2.Look for an invitation email from [facility].3.Open the email and access the invitation link: Accept Invitation to [facility]4.Fill in the required tierney to create your account. Sign into www.[employer] with your username and password that you [...] you will allow to register on the [employer] Patient Portal for access to your information. You can also access the [employer] Patient Portal on the [employer] kathy. Simply click on Health Records under Health Data and then click on the [employer] logo. HOW TO SAFELY DISPOSE OF PRESCRIPTION [...] Call your local pharmacy or go to http://IntelliChem.ZOOM [email or web address] to find one close to you.3.Make use of household items: Use cat litter or old coffee grounds to dispose medications if other options are not available. Mix your drugs with these household products, seal them in an airtight container and throw it into the garbage. Call [facility]: [phone] to be sure your drugs can be [...] aware that I should contact my doctor. Patient/Scientific Recruiter Signature: Date/Time: Relationship to Patient: ____ Witness Name/Signature: Date/Time: [facility] Evaluation + Plan note 10-29-2023 Note Date & Type Note Facility 10-29-2023 Evaluation + Plan note Diagnostic Tests PendingUrine Culture 10/29/23 [facility] Evaluation + Plan note Note Date & Type Note Facility Evaluation + Plan note No data available for this section [facility] Hospital Discharge instructions Note Date & Type Note Facility Hospital Discharge instructions No data available for this section [facility] Progress note Note Date & Type Note Facility Progress note No data available for this section [facility] Summary Purpose Family History No Family History Records Found Advance Directives No Advanced Directives Records Found Additional Source Comments Care Team (unrecognized sect ion and content) Personnel Name: CELINA DELGADO Address: [address] [place] [address] [facility] [place], [place] [address] Care Team Personnel Name: CELINA DELGADO Position: P4 Advanced Crnp Member Role: Primary Care Physician Address: Address: [address] [facility] [place] [address]- Name: ISAEL ACEVEDO MD Position: P3 Physician - Urologist Member Role: Urologist Address: Address: [address] [place] [address] [address] [place] [address]- Name: Brenda Gilbert RN Position: ED RN Member Role: ED RN Name: TROY LAM DO Position: ED Physician Member Role: ED Physician Address: Address: [facility] [address] [place] [address]- Care Team Related Persons Name: MARNIVI Name: VI GRIDER Thang Address: Home [address] [place], [place] [id number] (unrecognized sect ion and content) No Status [...] BE BASED ON THE PRIMARY CLINICAL RECORDS. [employer] provides no warranty or guarantee of the accuracy or completeness of information in this document.
[2023-11-26] MEDS: 0.9% Saline Lock 10 ML Syringe IV (14:30)
[2023-11-26 15:24] LABS: Ferritin 2 ng/mL (26-388); Iron 11 ug/dL (65-175); Iron Binding Capacity,Total 455 ug/dL (250-450); PERCENT IRON SATURATION 2.4 % (15.0-55.0)
[2023-11-26] MEDS: 0.9% Normal Saline (250mL Bag) 250 ML 15 ML IV (15:41)
[2023-11-26] MEDS: Ceftriaxone 1 GM/50 ML BAG IV (15:42)
[2023-11-26 16:26] LABS: Vitamin B12 407 pg/mL (211-911)
[2023-11-26] MEDS: Tamsulosin HCl 0.4 MG Capsule 0.400000000000000022 MG PO (20:19)
[2023-11-27] VITALS (22 sets, daily range): BP systolic 111–135; BP diastolic 59–90; PULSE 65–87; RESP 13–26; TEMP 36.3–37.3; O2SAT 92–100; BMI 28.8
--- NOTE | 2023-11-27 | BLB_PTH ---
PATHOLOGY RESULTS PATIENT: LEILANI GRIDER LOC: [facility] U#:[id number] AGE/SX: 68/M ROOM: [facility] RE11/26/[address]: Dr. Breann Graham MD : 1955 BED: 1 DIS: 11/29/2023 SPEC #: [id number] RECD: 11/27/23 12:10 STATUS: WANG REJose #: [id number] DAVI: 11/27/23 00:[address]: Freddie Hinkle DEPT: SURGICAL PATHOLOGY RECD BY: Crystal Ford ENTERED: 11/27/23 12:10 SP TYPE: TURB OTHR DR: Dr. Ervin Anderson, MD Dr. Breann John Dr., MD Ryan Baltes, SPANISH SPEAKING NANNY-C Tissues: Urinary bladder, NOS BLOOD CLOT, NOS Procedures: Surgery Specimen Level IV Surgery Specimen Level V Comments: @ Ordering doctor for SUIII edited from to @ aguilar PÉREZ at 11/27/23 145 @ Ordering doctor for SUV edited from to @ by ELISA at 11/27/23 1452 @ Submitting doctor edited from to @ by ELISA at 11/27/232 HEADER OPERATION: Cysto, transurethral resection bladder, Olympus PRE-OP DIAGNOSIS: Acute blood loss anemia, gross hematuria TISSUE SUBMITTED: A - Blood clots, B - Bladder tumor MICROSCOPIC DIAGNOSIS A. Blood clots: Superficial fragments of papillary urothelial carcinoma. Numerous blood clots. B. Bladder tumor, transurethral resection: Papillary urothelial carcinoma, invasive. See cancer summary in the comment section. SJ:richa 11/28/2023 COMMENT B. BLADDER CANCER (TUR) SUMMARY Procedure: Transurethral resection of bladder tumor (TURBT) Tumor site: Not specified Histologic type: Papillary urothelial carcinoma, invasive Associated epithelial lesions: None identified Histologic grade: Low grade (1/3) Tumor configuration: Papillary and endophytic Muscularis propria presence: Muscularis propria (detrusor muscle) is present and free of tumor. Lymphvascular invasion: Not identified Tumor extension: Tumor invades the lamina propria (subepithelial connective tissue). Additional pathologic findings: Chronic inflammation and cystitis cystica. - Numerous blood clots. PATHOLOGIC STAGE: pT1 pNx pMx The above summary is in compliance with College [employer] Path[employer] (CAP) Cancer Protocols Checklist and [place] Joint Committee on Cancer (AJCC), Staging Manual, 8th Ed. Please make reference to previous specimens ([id number]) urinary bladder tumor, TUR with diagnosis of papillary urothelial carcinoma and ([id number]) bladder, biopsy with diagnosis of noninvasive papillary urothelial carcinoma, and ([id number]) bladder, biopsy with diagnosis of papillary urothelial carcinoma, grade 1/3. Case has been reviewed in consultation with Dr. Baldwin who concurs with the above diagnosis. IDC:AM MICROSCOPIC DESCRIPTION Slides are reviewed. GROSS DESCRIPTION A - Received in fixative is one container labeled with the patient's name and designated blood clot. The specimen consists of multiple fragments of blood clots measuring in aggregate 7.0 x 5.0 x 2.0 cm. A few fragments of christian soft tissue are noted. The rest of the specimen entirely consists of blood clot. Room Service Supervisor tissue is submitted in two cassettes as follows: 1??christian soft tissue, 2 - blood clots. B - Received in fixative is one container labeled with the patient's name and designated bladder tumor. The specimen consists of multiple irregular fragments of christian soft tissue mixed with blood clot that in aggregate measure 5.0 x 3.0 x 0.7 cm. The entire specimen is submitted in five cassettes. / STEFAN:richa 11/27/2023 TC:0 CPT: 80116, 05230
[2023-11-27 01:32] LABS: Hemoglobin 6.5 g/dL (13.0-16.5); Mean Corp Hgb Conc 29.5 g/dL (32-36); Mean Corpuscular Volume 67.7 fL (80-94); POSITIVE MORPHOLOGY YES; Platelet Count 315 K/mm3 (150-450); RBC Distribution Width CV 24.1 % (11.6-14.6); RBC Distribution Width SD 57.3 fl (35.1-43.9); Red Blood Count 3.25 M/mm3 (4.6-6.2); White Blood Count 7.3 K/mm3 (4.4-11.0)
[2023-11-27 01:43] LABS: International Normalized Ratio 1.1; Prothrombin Time (Protime)PT. 13.8 SECONDS (11.7-14.9)
[2023-11-27 01:47] LABS: Anion Gap 7 (5-15); BUN 16 mg/dL (7-18); Calcium,Total 8.3 mg/dL (8.5-10.1); Chloride 112 mmol/L (98-107); EST Glomerular Filtration Rate 80 mL/min (>60); Est Glom Filt Rate - Afr Amer 96 mL/min (>60); Estimated Creatinine Clearance 72.68 ml/min; Glucose 104 mg/dL (74-106); Sodium Level 140 mmol/L (136-145)
[2023-11-27 01:53] LABS: Partial Thromboplast Time 29.1 Seconds (24.1-36.2)
[2023-11-27 01:57] LABS: Scan Indicated on CBC? Y/N YES- FLAGS NOTED
--- NOTE | 2023-11-27 02:05 | NURSING ---
Pt c/o feeling the urge to void and sensation of his bladder being full like when his catheter clots up. Romo irrigated and attempted to pull clots back. Multiple attempts unsucessful. Bladder scanned for >[address] Hinkle paged and gave the order to take out existing romo catheter and replace with a 20 Fr catheter. Catheter replaced and pt still was complaining of discomfort, very minimal output into romo bag. Dr. Hinkle called back into unit and said he would be in to take pt to surgery within an hour. When this RN went back into pt's room, he was voiding around the catheter onto the floor and said he felt so much better. After that, multiple syringefuls of clots were able to be pulled from the catheter. Called Dr. Hinkle back to see if he still wanted to take pt to surgery now that his romo was patent and draining, but he said he wanted to take care of it now. Pt aware of plans for surgery and called his to come in. Pt taken down to surgery in bed. Report given to OR nurse.
--- NOTE | 2023-11-27 02:55 | PCM.OPRPT ---
Report of Operation Date of Procedure: 11/27/23 Pre-Operative Diagnosis: Bleeding large bladder mass Post-Operative Diagnosis: Same Surgery/Procedure Performed:: Transurethral resection of bladder tumor large and cystoscopy evacuation of clots Description of Surgical Findings:: 68-year-old male was admitted to the hospital with continuous gross hematuria from a known large bladder mass he has acute anemia and had resuscitated blood transfusion given he was in the ICU this evening but having more clots and bleeding and severe pain from the clots so we decided to take the patient to the operating room tonight to evacuate all the blood clots and resect this bleeding bladder tumor. Patient was taken back to the operating room after smooth induction of general anesthesia by Dr. Kruse he was placed in dorsolithotomy position. The Slater catheter was removed the penis and testicles were prepped and draped in usual sterile fashion I then went into the bladder with a 26 Chinese continuous-flow resectoscope. The entire length of the urethra was free of any strictures or trauma the sphincter was intact verumontanum was identified he did have a large bilateral obstructive prostate inside the bladder and immediately ran into a significant amount of blood clots I then used the PhosImmune evacuator and evacuated out all the clots. I then was able to see the tumor the tumor location was extensive he had a tumor coming across his bladder neck and anterior bladder tumor coming from the lateral wall and tumor in the trigone area total size of the tumor measured was quite large about 5 cm x 4 cm x 4 cm asked multiple tumors throughout, after the tumor was evaluated then I used a resectoscope and I resected the tumor down to the base and the anterior wall and lateral wall and down on the trigone got good deep muscle bites. It did not appear to be a muscle invasive tumor but it did appear to be an invasive tumor probably to the lamina propria very likely will need BCG therapy to help her prevent recurrences. Will see what the final pathology demonstrates. After resecting tumor completely and all the tumor chips were removed of the bladder we placed a 22 Chinese catheter into the bladder on continuous irrigation his anesthetic was reversed taken back to the intensive care unit in stable condition. Surgeon: Freddie Hinkle Type of Anesthesia: General Drains: 22fr 3 way Estimated Blood Loss (mL): 20 Admit VTE Documentation VTE Present on Admission: No VTE Mechan Device Prophylaxis: SCD's VTE Pharm Prophylaxis ordered?: No
[2023-11-27] MEDS: 0.9% Saline Lock 10 ML Syringe IV ×5 (03:09→10:05)
[2023-11-27] MEDS: morphine 10 MG/ML Syringe IV (03:09)
--- NOTE | 2023-11-27 03:17 | NURSING ---
Dr. Kruse at bedside to bring pt up from the OR. Verbal order given for 10 mg morphine IV x1. Morphine given by Dr. Kruse, scanned onto JAN.
[2023-11-27] MEDS: Ondansetron 4 MG/2 ML Vial IV (03:30)
[2023-11-27] MEDS: Ketorolac 15 MG/ML Vial IV (03:30)
[2023-11-27] MEDS: Acetaminophen 325 MG Tablet 650 MG PO (04:04)
[2023-11-27] MEDS: Morphine 2 MG/ML Syringe IV (04:05)
[2023-11-27] MEDS: Furosemide 20 MG/2 ML VIAL IV ×2 (04:55→16:32)
[2023-11-27] MEDS: Phenazopyridine 95 MG Tablet 190 MG PO ×3 (06:10→21:27)
[2023-11-27] MEDS: Ceftriaxone 1 GM/50 ML BAG IV (10:05)
--- NOTE | 2023-11-27 14:06 | CHAPLAIN ---
Type of Pastoral Visit _x__ Initial Visit ___ Follow-up Visit ___ On-call Visit ___ General Patient Visit ___ Spiritual Assessment ___ Family Conference ___ Bereavement ___ Rapid Response ___ Code Blue ___ Other (describe below) Pastoral Care Referral From _x__ Patient ___ Family ___ Nurse ___ Physician ___ Manager Of Change ___ Radio Officer ___ Other (describe below) Sacrament/Intervention _x__ Active listening ___ Anointing ___ Jew ___ Bereavement ___ Communion ___ Tejal exploration ___ _x__ Life review _x__ Prayer ___ Reconciliation ___ Sacrament of Sick ___ Supportive presence ___ Wedding ___ Other (describe below) Pastoral Comments patient is an acquaintance from years ago and he was happy to give updates on his life, family, and the satisfaction of good care and prompt attention to his need yesterday; pt is talkative and yet acknowledges his desire for more rest; pt welcomes presence and prayer for support
--- NOTE | 2023-11-27 14:46 | CASEMGMT ---
MELANY VILLA Assessment: Face to Face with pt for initial transition planning/care coordination assessment. RN DAISY introduced self and role at [facility], pt voices understanding and consents to assessment. Pt is A&O x4 and answers all questions appropriately at this time. Pt sitting up in bed finishing lunch in no distress with oxygen on. Care providers, pharmacy, and demographics verified/updated. Admitting Dx:acute blood loss anemia, gross hematuria PCP:Paulino Troy PEST CONTROL TECHNICIAN Specialists:nathalia Hinkle Preferred [facility]acy:[facility] Prescription Benefit: yes LNOK:April Spann, Living Arrangements: Pt lives with in a two story home with 3 steps to enter. 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 Pt denies concerns at home. Transportation: Pt drives self and denies concerns with transportation. DME:walker available but does not use. Pt has had a romo in the past and denies issues with caring for it. HHC/SNF:Denies hx of Pt states no concerns with going home at time of dc. Pt states no further concerns/needs. CM to follow. Advised pt to ask CM if any further question/concerns/needs arise, voices understanding. Pt Goal:Home Plan:Home, follow oxygen
--- NOTE | 2023-11-27 15:39 | PN_ITS ---
Subjective Subjective Patient seen and examined. He had no complaints and was comfortably eating breakfast. Review of systems otherwise negative. Hemoglobin was 6.5 this morning. He had already been transfused with 3 units of packed red blood cells. Objective Data Objective Data Vital Signs: Vital Signs Temp Pulse Resp BP Pulse Ox O2 Del Method O2 Flow Rate 98.5 F 73 16 128/83 H 99 Nasal Cannula 2 11/27/23 15:00 11/27/23 15:00 11/27/23 15:00 11/27/23 15:00 11/27/23 15:00 11/27/23 15:00 11/27/23 15:00 Oxygen Flow Rate (L/min) 2 Oxygen Delivery Method Nasal Cannula Weight: 178 lb 12.718 oz Body Mass Index (BMI) 28.8 Intake & Output: Intake and Output for Last 24 Hours 11/25/23 11/26/23 11/27/23 23:59 23:59 23:59 Intake Total 927.50 / 927.50 2070 / 2070 Output Total 1150 / 1150 07543 / 60384 Balance -222.50 / -222.50 -9980 / -9980 Lab / Micro Data 11/27/23 01:25 11/27/23 01:25 Labs: Laboratory Results - last 24 hr 11/26/23 12:06: Blood Type A POSITIVE, Antibody Screen NEGATIVE, Crossmatch See Detail 11/26/23 12:06: Crossmatch See Detail 11/26/23 14:40: Vitamin B12 407 11/27/23 01:25: WBC 7.3, RBC 3.25 L, Hgb 6.5 L, Hct 22.0 L, MCV 67.7 L D, MCH 20.0 L, MCHC 29.5 L D, RDW Std Deviation 57.3 H, RDW Coeff of Malgorzata 24.1 H, Plt Count 315, MPV 9.0, PT 13.8, INR 1.1, APTT 29.1, Sodium 140, Potassium 4.0, Chloride 112 H, Carbon Dioxide 21.0, Anion Gap 7, BUN 16, Creatinine 1.00, Estim Creat Clear Calc 72.68, Est GFR (MDRD) Af Amer 96, Est GFR (MDRD) Non-Af 80, BUN/Creatinine Ratio 16.0, Glucose 104, Calcium 8.3 L Micro: Microbiology 11/26/23 12:55 Urine Catheter - Slater Urine Culture - Preliminary Staphylococcus species Physical Exam Const alert, oriented x3, no apparent distress and well nourished General Appearance: cooperative and well developed HEENT normocephalic, head/scalp atraumatic, moist oral mucous membranes and oropharynx normal Eyes PERRL and EOMs intact bilaterally Neck no lymphadenopathy, supple and no JVD Lymph Lymphatic: no lymphadenopathy noted and no lymphedema noted Resp normal respiratory effort, normal air movement and clear to auscultation bilaterally Cardio regular rate, regular rhythm, S1 normal heart sound, S2 normal heart sound and no murmurs GI normal to inspection, nondistended, normoactive bowel sounds, soft to palpation, non-tender and non-distended Extremity normal capillary refill, no clubbing, cyanosis or edema and no calf tenderness General Extremity: no tenderness to palpation of joints or extremities Skin General Skin Exam: no breakdown and turgor normal Neuro CN's II-XII intact bilaterally, no focal motor deficits, no sensory deficits noted and deep tendon reflexes 2+ bilaterally Motor Exam: strength 5/5 throughout and general weakness Psych thought process normal, cooperative and affect normal Appearance: appropriate Assessment & Plan Assessment/Plan (1) Acute blood loss anemia: (2) Acute UTI: (3) Edema of right lower leg: (4) Anemia: (5) Bladder mass: (6) Gross hematuria: PLAN: Plan ##Acute blood loss anemia due to hematuria * has a history of bladder cancer * had emergent cystoscopy with resection of bladder mass and cystoscopy evacuation of blood clots * transfused with 3 u nits of PRBCs on admission as Hb was 4.3 on admission * Hb now is 6.5 * will transfuse 2 more units of PRBCs * On continuous bladder irrigation * urology on board * #UTI: urinalysis showed evidence of UTI. On IV ceftriaxone. #Bladder cancer: as above. 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 Stable #BPH wih obstruction:Slater catheter in situ DVT prophylaxis: SCDs Charges/Coding Visit Charges Inpatient E&M: 12064 [facility] L3
[2023-11-27] MEDS: Tamsulosin HCl 0.4 MG Capsule 0.400000000000000022 MG PO (21:27)
[2023-11-28] VITALS (7 sets, daily range): BP systolic 121–140; BP diastolic 68–87; PULSE 68–88; RESP 16–21; TEMP 36.3–37.1; O2SAT 95–98
[2023-11-28 04:04] LABS: Absolute Lymphocyte Count 1.39 X10^3/uL (0.83-4.51); Absolute Neutrophil Count 4.7 X10^3/uL (2.0-7.7); Basophil% 1.3 % (0-1); Eosinophils% 5.3 % (0-5); Hematocrit 26.4 % (40-54); Hemoglobin 7.8 g/dL (13.0-16.5); Lymphocyte # 1.39 X10^3/ul (0.83-4.51); Lymphocyte % 18.3 % (19-41); Mean Corp Hgb Conc 29.5 g/dL (32-36); Mean Corpuscular Hgb 21.5 pg (27.0-32.0); Mean Corpuscular Volume 72.9 fL (80-94); Monocyte# 0.93 X10^3/uL; Monocyte% 12.3 % (0-10); NRBC Flagged by Analyzer 0.4 % (0-5); Neutrophil # 4.72 X10^3/uL (2.7-7.7); Neutrophil % 62.3 % (47-70); POSITIVE MORPHOLOGY YES; Platelet Count 291 K/mm3 (150-450); RBC Distribution Width CV 25.9 % (11.6-14.6); RBC Distribution Width SD 66.2 fl (35.1-43.9); Red Blood Count 3.62 M/mm3 (4.6-6.2); White Blood Count 7.6 K/mm3 (4.4-11.0)
[2023-11-28 04:19] LABS: Anion Gap 4 (5-15); BUN 19 mg/dL (7-18); BUN/Creat Ratio 20.2 RATIO (10-20); Chloride 109 mmol/L (98-107); Creatinine, Serum 0.94 mg/dL (0.70-1.30); EST Glomerular Filtration Rate 85 mL/min (>60); Est Glom Filt Rate - Afr Amer 103 mL/min (>60); Estimated Creatinine Clearance 77.32 ml/min; Glucose 122 mg/dL (74-106); Potassium 3.8 mmol/L (3.5-5.1); Sodium Level 138 mmol/L (136-145)
[2023-11-28 04:33] LABS: Differential Indicated SCAN CRITERIA MET
[2023-11-28 04:34] LABS: Anisocytosis 1+; Hypochromasia 1+
[2023-11-28] MEDS: 0.9% Saline Lock 10 ML Syringe IV (06:52)
[2023-11-28] MEDS: Acetaminophen 325 MG Tablet 650 MG PO (06:52)
[2023-11-28] MEDS: Phenazopyridine 95 MG Tablet 190 MG PO ×3 (06:52→21:33)
--- NOTE | 2023-11-28 08:10 | PCM.CONS.B ---
Consult Date of Consult: 11/28/23 Reason for Consult Status post resection of a bladder mass and removal of blood clots from the bladder patient did get some blood transfusion yesterday hemoglobin is back up look stable there is no more bleeding from the catheter we can stop irrigation and plug the port once he is discharged from the hospital he can go home with a catheter and follow-up with urology next week for catheter removal call me with questions.
[2023-11-28] MEDS: Ceftriaxone 1 GM/50 ML BAG IV (08:53)
[2023-11-28] MEDS: Flu Vacc QS2023-24(65YR UP)/PF 240 MCG/0.7 ML Syringe IM (08:54)
--- NOTE | 2023-11-28 10:26 | PN_ITS ---
Subjective Subjective Patient seen and examined. He had no active complaints and had an uneventful night. Continuous bladder irrigation has been stopped because hematuria has resolved. Review of systems is otherwise negative. Objective Data Objective Data Vital Signs: Vital Signs Temp Pulse Resp BP Pulse Ox O2 Del Method O2 Flow Rate 97.4 F L 69 16 121/68 H 95 Room Air 2 11/28/23 08:00 11/28/23 08:00 11/28/23 08:00 11/28/23 08:00 11/28/23 08:00 11/28/23 08:27 11/28/23 07:21 Oxygen Flow Rate (L/min) 2 Oxygen Delivery Method Room Air Weight: 178 lb 12.718 oz Body Mass Index (BMI) 28.8 Intake & Output: Intake and Output for Last 24 Hours 11/26/23 11/27/23 11/28/23 23:59 23:59 23:59 Intake Total 927.50 / 927.50 2992 / 2992 50 / 50 Output Total 1150 / 1150 60373 / 94043 3000 / 3000 Balance -222.50 / -222.50 -62269 / -67624 -2950 / -2950 Lab / Micro Data 11/28/23 03:55 11/28/23 03:55 Labs: Laboratory Results - last 24 hr 11/26/23 12:06: Crossmatch See Detail 11/26/23 12:06: Crossmatch See Detail 11/28/23 03:55: WBC 7.6, RBC 3.62 L, Hgb 7.8 L, Hct 26.4 L, MCV 72.9 L D, MCH 21.5 L, MCHC 29.5 L, RDW Std Deviation 66.2 H, RDW Coeff of Malgorzata 25.9 H, Plt Count 291, MPV 9.0, Immature Gran % (Auto) 0.500, Neut % (Auto) 62.3, Lymph % (Auto) 18.3 L, [place] % (Auto) 12.3 H, Eos % (Auto) 5.3 H, Baso % (Auto) 1.3 H, Absolute Neuts (auto) 4.7, Absolute Lymphs (auto) 1.39, Nucleated RBC % 0.4, Hypochromasia 1+, Anisocytosis 1+, Sodium 138, Potassium 3.8, Chloride 109 H, Carbon Dioxide 25.0, Anion Gap 4 L, BUN 19 H, Creatinine 0.94, Estim Creat Clear Calc 77.32, Est GFR (MDRD) Af Amer 103, Est GFR (MDRD) Non-Af 85, BUN/Creatinine Ratio 20.2 H, Glucose 122 H, Calcium 8.0 L Micro: Microbiology 11/26/23 12:55 Urine Catheter - Slater Urine Culture - Preliminary Staphylococcus aureus Gram negative mirlande Physical Exam Const alert, oriented x3, no apparent distress, average body habitus and well nourished General Appearance: cooperative, comfortable and well developed HEENT normocephalic, head/scalp atraumatic, nasal mucous membranes and turbinates normal, moist oral mucous membranes and oropharynx normal Eyes PERRL, EOMs intact bilaterally and conjunctivae normal Neck full ROM, no lymphadenopathy, supple and no JVD Lymph Lymphatic: no lymphadenopathy noted and no lymphedema noted Chest inspection of chest normal Resp normal respiratory effort, normal air movement, no use of accessory muscles and clear to auscultation bilaterally Cardio regular rate, regular rhythm, S1 normal heart sound, S2 normal heart sound, no murmurs and peripheral pulses 2+ throughout GI normal to inspection, nondistended, normoactive bowel sounds, soft to palpation, non-tender and non-distended Narrative: hematuria has resolved Bladder / Kidney Exam: catheter in place, bladder normal to palpation and no CVA tenderness Back/Spine normal ROM Extremity normal to inspection, normal capillary refill, no clubbing, cyanosis or edema and no calf tenderness General Extremity: no tenderness to palpation of joints or extremities Skin no rashes or lesions noted General Skin Exam: no breakdown and turgor normal Neuro CN's II-XII intact bilaterally, moves all extremities, no focal motor deficits, no sensory deficits noted and deep tendon reflexes 2+ bilaterally Speech: speech normal Motor Exam: strength 5/5 throughout and general weakness Psych mental status grossly normal, thought process normal, cooperative and affect no rmal Appearance: appropriate Assessment & Plan Assessment/Plan (1) Acute blood loss anemia: (2) Acute UTI: (3) Edema of right lower leg: (4) Anemia: (5) Bladder mass: (6) Gross hematuria: PLAN: Plan ##Acute blood loss anemia due to hematuria * has a history of bladder cancer * had emergent cystoscopy with resection of bladder mass and cystoscopy evacuation of blood clots * transfused with a total of 5 units of PRBCs since admission. * Hb is now 7.8 today * continuous bladder irrigation has been discontinued per urology. * urology on board * #UTI: urinalysis showed evidence of UTI. On IV ceftriaxone. #Bladder cancer: as above. 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 Stable #BPH wih obstruction:Slater catheter in situ DVT prophylaxis: SCDs Charges/Coding Visit Charges Inpatient E&M: 26145 Subs Hosp L2
[2023-11-28 14:27] LABS: Pathologist Review Reviewed
--- NOTE | 2023-11-28 17:08 | NURSING ---
Called report to Sanjuana MOSLEY on PCU
[2023-11-28] MEDS: Tamsulosin HCl 0.4 MG Capsule 0.400000000000000022 MG PO (21:32)
[2023-11-28] MEDS: Senna Tablet 1 TABLET PO (23:42)
[2023-11-28] MEDS: MELATONIN 3 MG TABLET PO (23:43)
[2023-11-29 06:00] VITALS: BP 132/76; PULSE 80; RESP 17; TEMP 36.5; O2SAT 98
[2023-11-29 07:09] LABS: Absolute Neutrophil Count 4.4 X10^3/uL (2.0-7.7); Basophil# 0.09 X10^3/uL; Basophil% 1.4 % (0-1); Eosinophil# 0.37 X10^3/uL; Eosinophils% 5.6 % (0-5); Hematocrit 28.1 % (40-54); Hemoglobin 8.3 g/dL (13.0-16.5); Mean Corp Hgb Conc 29.5 g/dL (32-36); Mean Corpuscular Hgb 21.5 pg (27.0-32.0); Mean Corpuscular Volume 72.8 fL (80-94); Mean Platelet Vol. 9.6 fl (6.2-12.0); Monocyte# 0.75 X10^3/uL; Monocyte% 11.3 % (0-10); NRBC Flagged by Analyzer 0 % (0-5); Neutrophil # 4.41 X10^3/uL (2.7-7.7); Neutrophil % 66.1 % (47-70); POSITIVE MORPHOLOGY YES; Platelet Count 326 K/mm3 (150-450); RBC Distribution Width CV 26.9 % (11.6-14.6); RBC Distribution Width SD 67.7 fl (35.1-43.9); Red Blood Count 3.86 M/mm3 (4.6-6.2); White Blood Count 6.7 K/mm3 (4.4-11.0)
[2023-11-29 07:12] LABS: Differential Indicated SCAN CRITERIA MET
[2023-11-29 07:45] LABS: Anion Gap 1 (5-15); BUN 17 mg/dL (7-18); Calcium,Total 8.6 mg/dL (8.5-10.1); Chloride 112 mmol/L (98-107); Creatinine, Serum 0.85 mg/dL (0.70-1.30); EST Glomerular Filtration Rate 96 mL/min (>60); Est Glom Filt Rate - Afr Amer 116 mL/min (>60); Estimated Creatinine Clearance 85.51 ml/min; Glucose 110 mg/dL (74-106); Potassium 4.2 mmol/L (3.5-5.1); Sodium Level 137 mmol/L (136-145)
[2023-11-29 08:19] LABS: Anisocytosis 2+
[2023-11-29] MEDS: Acetaminophen 325 MG Tablet 650 MG PO (09:24)
[2023-11-29] MEDS: Smz/Tmp Ds Tablet 1 TABLET PO (09:24)
[2023-11-29] MEDS: Ceftriaxone 1 GM/50 ML BAG IV (09:24)
[2023-11-29 09:25] VITALS: BP 122/82; PULSE 85; RESP 18; TEMP 36.4; O2SAT 99
[2023-11-29] MEDS: Senna Tablet 1 TABLET PO (09:25)
--- OUTSIDE RECORDS SUMMARY | 2023-11-29 12:19 | XMS RPT_ITS | CCD ---
Author Name Unknown Address [address] [place] [address] Organization [facility] Care Team Providers Care Staff Climate Scientist Name Role Phone CELINA SLAUGHTER Primary Care Physician [phone] TAMIA SCHERER, ALEM Cotter Attending Unavailable CELINA [...] qDay, # 90 tab(s), 3 Refill(s), Pharmacy: [facility]/pharmacy #[id number], Hyperlipidemia, 166.37, cm, 04/28/21 8:10:00 EDT, Height, [...] Non-Invasive 82 mm[Hg] DR TROY LAM DO [facility] 10-29-2023 18:50-0500 Heart rate 63 /min DR TROY LAM DO [facility] 10-29-2023 18:50-0500 Reason For Taking VItal Signs DR TROY LAM DO [facility] 10-29-2023 18:50-0500 Respiratory rate 18 /min DR TROY LAM DO [facility] 10-29-2023 18:50-0500 Systolic Blood Pressure Non-Invasive 129 mm[Hg] DR TROY LAM DO [facility] 10-29-2023 16:45-0500 Body temperature 98.42 [degF] DR TROY LAM DO [facility] 10-29-2023 16:45-0500 Diastolic Blood Pressure Non-Invasive 80 mm[Hg] DR TROY LAM DO [facility] 10-29-2023 16:45-0500 Heart rate 68 /min DR TROY LAM DO [facility] 10-29-2023 16:45-0500 Respiratory rate 18 /min DR TROY LAM DO [facility] 10-29-2023 16:45-0500 Systolic Blood Pressure Non-Invasive 132 mm[Hg] DR TROY LAM DO [facility] Encounters Encounter Date Encounter Type Care Provider Facility Start: 11-02-2023 End: 11-02-2023 Emergency department patient visit ALEM CANTRELL MD Facility:B Start: 10-29-2023 End: 10-29-2023 Emergency department patient visit TROY LAM Facility:B Start: 10-29-2023 End: 10-29-2023 Emergency department patient visit DR TROY LAM DO [facility] Start: 03-30-2022 End: 03-30-2022 Patient encounter procedure CELINA DELGADO WET MACHINE TENDER-RETAIL LEASING AGENT [facility] Procedures Date Procedure Procedure Detail Performing Clinician Finger structure (body structure) CELINA DELGADO WET MACHINE TENDER-RETAIL LEASING AGENT Immunizations Immunization Date Immunization Notes Care Provider Fa [facility] 07-28-2021 SARS-CoV-2 mRNA (tozinameran) vaccine CELINA DELGADO WET MACHINE TENDER-RETAIL LEASING AGENT [facility] 06-30-2021 SARS-CoV-2 mRNA (tozinameran) vaccine CELINA DELGADO WET MACHINE TENDER-RETAIL LEASING AGENT [facility] Payers Date Payer Category Payer Private Health Insurance [id number] 1955 Unknown [id number] 1955 Unknown [id number] Social History Date Type Detail Facility Start: 03-30-2022 End: 10-29-2023 Tobacco smoking status Ex-smoker (finding) [facility] Sex Assigned At Male [facility] Functional Status Date Assessment Result Facility 10-29-2023 Functional Status Standard Safet y ID band on, Call device within reach, Bed in low position, Wheels locked, Bedside Cart Locked, Visitor at bedside, Safety level maintained [facility] 10-29-2023 Functional Status [facility] Mental Status Date Assessment Result Facility 10-29-2023 Mental Status Orientation Oriented x 4 [facility] 10-29-2023 Mental Status [facility] Clinical Note 11-01-2023 Note Date & [...] Locations *1: This test was performed at: [facility], [address] [place] [address], [facility] , [facility] Discharge instructions 10-29-2023 Note Date [...] to keep medicine down Weakness or dizziness [id number] [employer]. [address] [place] [address], [place] [address]. All rights reserved. This information is not [...] for 6 hours Weakness, dizziness, or fainting [phone] [employer]. [address] [place] [address], [place] [address]. All rights reserved. This information is not intended as a substitute for professional medical care. Always follow your healthcare professional's instructions. Follow Up Care 10/29/2023 16:44:06 With:ISAEL ACEVEDO MD, [employer] [facility] [employer] Address: [address] [place] [phone] When:2-4 days [facility] Emergency department Discharge summary 10-29-2023 Note Date & Type Note Facility 10-29-2023 Emergency department Discharge summary Discharge Instructions Thank you for allowing [facility] to assist you with your healthcare needs. The following is important discharge information regarding your hospital visit. Diagnosis from Today's Visit Urinary retention What to Do Next Instructions from Your Care Team No qualifying data available. Post Acute Orders No qualifying data available. You Need to Schedule the Following Appointments Follow Up with ISAEL ACEVEDO MD, [facility] When Within 2-4 days Where: [address] [place] [phone] Allergies NKA Medications Please ask your primary [...] keep medicine down Weakness or dizziness [employer]. [address] [place] [address], [place] [id number]. All rights reserved. This information is not [...] 6 hours Weakness, dizziness, or fainting [employer]. [address] [place] [address], [place] [address]. All rights reserved. This information is not intended as a substitute for professional medical care. Always follow your healthcare professional's instructions. Additional Information VACCINATE! IT SAVES LIVES! Members of the community who have not yet received the COVID-19 vaccine and would like to receive it can visit one of [facility] vaccine clinics. There are many vaccine clinic locations within the [facility]. For locations and available times, please visit [email or web address] It is important to note that some COVID mobile vaccine clinics are held outdoors and may be canceled in rainy or stormy conditions. To learn more about pediatric vaccinations (ages 5-11), we invite you to visit the [facility] webpage. [email or web address] To learn more about the COVID-19 vaccine, we invite you to visit the CDC website for a list of frequently asked questions. https://www.cdc.gov/coronavirus/2 019-ncov/vaccines/faq.html [facility] Patient Portal Access Instructions: Stay connected with your healthcare team and access your personal medical information anytime with the [facility] Patient Portal. If you would like a full copy of your medical records please contact the [facility] Medical Records Department Sunday through Sunday between 8a.m. and 4:30p.m. Please follow the directions below to access the portal: 1.Access the email account you provided upon registration to the hospital.2.Look for an invitation email from [facility].3.Open the email and access the invitation link: Accept Invitation to [facility]4.Fill in the required tierney to create your account. Sign into [email or web address] with your username and password that you [...] you will allow to register on the [facility] Patient Portal for access to your information. You can also access the [facility] Patient Portal on the [employer] kathy. Simply click on Health Records under Health Data and then click on the [employer] logo. HOW TO SAFELY DISPOSE OF PRESCRIPTION [...] Call your local pharmacy or go to [email or web address] to find one close to you.3.Make use of household items: Use cat litter or old coffee grounds to dispose medications if other options are not available. Mix your drugs with these household products, seal them in an airtight container and throw it into the garbage. Call [facility]: [phone] to be sure your drugs can be [...] aware that I should contact my doctor. 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: Relationship to Patient: ____ Witness Name/Signature: Date/Time: [facility] Evaluation + Plan note 10-29-2023 Note Date & Type Note Facility 10-29-2023 Evaluation + Plan note Diagnostic Tests PendingUrine Culture 10/29/23 [facility] Evaluation + Plan note Note Date & Type Note Facility Evaluation + Plan note No data available for this section [facility] Hospital Discharge instructions Note Date & Type Note Facility Hospital Discharge instructions No data available for this section [facility] Progress note Note Date & Type Note Facility Progress note No data available for this section [facility] Summary Purpose Family History No Family History Records Found Advance Directives No Advanced Directives Records Found Additional Source Comments Care Team (unrecognized sect ion and content) Personnel Name: CELINA DELGADO Address: [address] [place] [address] [facility] [place], [place] [address] Care Team Personnel Name: CELINA DELGADO Position: P4 Advanced Bank Vault Attendant Member Role: Primary Care Physician Address: Address: [address] [facility] [place] [address]- Name: ISAEL ACEVEDO MD Position: P3 Physician - Urologist Member Role: Urologist Address: Address: [address] [place] [address] [address] [place] [address]- Name: Brenda Gilbert RN Position: ED RN Member Role: ED RN Name: TROY LAM DO Position: ED Physician Member Role: ED Physician Address: Address: [facility] [address] [place] [address]- Care Team Related Persons Name: MARNIVI Name: VI GRIDER Thang Address: Home [address] [place], [place] [phone] (unrecognized sect ion and content) No Status [...] BE BASED ON THE PRIMARY CLINICAL RECORDS. [employer] provides no warranty or guarantee of the accuracy or completeness of information in this document.
--- OUTSIDE RECORDS SUMMARY | 2023-11-29 12:20 | XMS RPT_ITS | CCD ---
Author Name Unknown Address [address] [place] [address] Organization [facility] Care Team Providers Care Head Of Music Name Role Phone CELINA SLAUGHTER Primary Care Physician [phone] TAMIA SCHERER, ALEM Cotter Attending Unavailable CELINA [...] qDay, # 90 tab(s), 3 Refill(s), Pharmacy: [facility]/pharmacy #[id number], Hyperlipidemia, 166.37, cm, 04/28/21 8:10:00 EDT, Height, [...] Non-Invasive 82 mm[Hg] DR TROY LAM DO [facility] 10-29-2023 18:50-0500 Heart rate 63 /min DR TROY LAM DO [facility] 10-29-2023 18:50-0500 Reason For Taking VItal Signs DR TROY LAM DO [facility] 10-29-2023 18:50-0500 Respiratory rate 18 /min DR TROY LAM DO [facility] 10-29-2023 18:50-0500 Systolic Blood Pressure Non-Invasive 129 mm[Hg] DR TROY LAM DO [facility] 10-29-2023 16:45-0500 Body temperature 98.42 [degF] DR TROY LAM DO [facility] 10-29-2023 16:45-0500 Diastolic Blood Pressure Non-Invasive 80 mm[Hg] DR TROY LAM DO [facility] 10-29-2023 16:45-0500 Heart rate 68 /min DR TROY LAM DO [facility] 10-29-2023 16:45-0500 Respiratory rate 18 /min DR TROY LAM DO [facility] 10-29-2023 16:45-0500 Systolic Blood Pressure Non-Invasive 132 mm[Hg] DR TROY LAM DO [facility] Encounters Encounter Date Encounter Type Care Provider Facility Start: 11-02-2023 End: 11-02-2023 Emergency department patient visit ALEM CANTRELL MD Facility:B Start: 10-29-2023 End: 10-29-2023 Emergency department patient visit TROY LAM Facility:B Start: 10-29-2023 End: 10-29-2023 Emergency department patient visit DR TROY LAM DO [facility] Start: 03-30-2022 End: 03-30-2022 Patient encounter procedure CELINA DELGADO ELEMENTARY SUBSTITUTE TEACHER-SHOULDER PAD MOLDER [facility] Procedures Date Procedure Procedure Detail Performing Clinician Finger structure (body structure) CELINA DELGADO ELEMENTARY SUBSTITUTE TEACHER-SHOULDER PAD MOLDER Immunizations Immunization Date Immunization Notes Care Provider Fa [facility] 07-28-2021 SARS-CoV-2 mRNA (tozinameran) vaccine CELINA DELGADO ELEMENTARY SUBSTITUTE TEACHER-SHOULDER PAD MOLDER [facility] 06-30-2021 SARS-CoV-2 mRNA (tozinameran) vaccine CELINA DELGADO ELEMENTARY SUBSTITUTE TEACHER-SHOULDER PAD MOLDER [facility] Payers Date Payer Category Payer Private Health Insurance [id number] 1955 Unknown [id number] 1955 Unknown [id number] Social History Date Type Detail Facility Start: 03-30-2022 End: 10-29-2023 Tobacco smoking status Ex-smoker (finding) [facility] Functional Status Date Assessment Result Facility 10-29-2023 Functional Status Standard Safet y ID band on, Call device within reach, Bed in low position, Wheels locked, Bedside Cart Locked, Visitor at bedside, Safety level maintained [facility] 10-29-2023 Functional Status [facility] Mental Status Date Assessment Result Facility 10-29-2023 Mental Status Orientation Oriented x 4 [facility] 10-29-2023 Mental Status [facility] Clinical Note 11-01-2023 Note Date [...] Locations *1: This test was performed at: [facility], [address] [place] [address], [facility] , [facility] Discharge instructions 10-29-2023 Note Date & [...] to keep medicine down Weakness or dizziness 5620-7136 [employer] [facility] [employer]. [address] [place] [address], [place] [address]. All rights reserved. This information is not [...] for 6 hours Weakness, dizziness, or fainting 7395-5384 [facility]. [address] [place] [address], [place] [address]. All rights reserved. This information is not intended as a substitute for professional medical care. Always follow your healthcare professional's instructions. Follow Up Care 10/29/2023 16:44:06 With:ISAEL ACEVEDO MD, M [employer] [facility] [employer] [employer] Address: [address] [place] [phone] When:2-4 days [facility] Emergency department Discharge summary 10-29-2023 Note Date & Type Note Facility 10-29-2023 Emergency department Discharge summary Discharge Instructions Thank you for allowing [facility] to assist you with your healthcare needs. The following is important discharge information regarding your hospital visit. Diagnosis from Today's Visit Urinary retention What to Do Next Instructions from Your Care Team No qualifying data available. Post Acute Orders No qualifying data available. You Need to Schedule the Following Appointments Follow Up with ISAEL ACEVEDO MD, Needle When Within 2-4 days Where: [address] [place] [phone] Allergies NKA Medications Please ask your primary [...] keep medicine down Weakness or dizziness [facility]. [address] [place] [address], [place] [id number]. All rights reserved. This information is not intended as a substitute for professional medical care. Always follow your healthcare professional's instructions. Lsater Catheter Care A Slater catheter is a [...] 6 hours Weakness, dizziness, or fainting [facility]. [address] [place] [address], [place] [address]. All rights reserved. This information is not intended as a substitute for professional medical care. Always follow your healthcare professional's instructions. Additional Information VACCINATE! IT SAVES LIVES! Members of the community who have not yet received the COVID-19 vaccine and would like to receive it can visit one of [facility] vaccine clinics. There are many vaccine clinic locations within the [facility]. For locations and available times, please visit www.gettheshot.coronavirus.[place].g ov/. It is important to note that some COVID mobile vaccine clinics are held outdoors and may be canceled in rainy or stormy conditions. To learn more about pediatric vaccinations (ages 5-11), we invite you to visit the [facility] [facility] webpage. https://www.Rabixos.org/pa ges/8751-Ggawu-Uqouhosykrg-Freque rbfh-Zbaiy-Zhrposxgb.html To learn more about the COVID-19 vaccine, we invite you to visit the CDC website for a list of frequently asked questions. https://www.cdc.gov/coronavirus/2 019-ncov/vaccines/faq.html [facility] Patient Portal Access Instructions: Stay connected with your healthcare team and access your personal medical information anytime with the [email or web address] Patient Portal. If you would like a full copy of your medical records please contact the [facility] Medical Records Department Sunday through Sunday between 8a.m. and 4:30p.m. Please follow the directions below to access the portal: 1.Access the email account you provided upon registration to the hospital.2.Look for an invitation email from [facility].3.Open the email and access the invitation link: Accept Invitation to [email or web address].Fill in the required tierney to create your account. Sign into [email or web address] with your username and password that you [...] you will allow to register on the nprogress Patient Portal for access to your information. You can also access the [employer]progress Patient Portal on the LocalMed kathy. Simply click on Health Records under Health Data and then click on the Sanrad logo. HOW TO SAFELY DISPOSE OF PRESCRIPTION [...] Call your local pharmacy or go to http://Health Plotter.Azuqua/8O7Iz1h to find one close to you.3.Make use of household items: Use cat litter or old coffee grounds to dispose medications if other options are not available. Mix your drugs with these household products, seal them in an airtight container and throw it into the garbage. Call [facility]: [phone] to be sure your drugs can be [...] aware that I should contact my doctor. 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: Relationship to Patient: ____ Witness Name/Signature: Date/Time: [facility] Evaluation + Plan note 10-29-2023 Note Date & Type Note Facility 10-29-2023 Evaluation + Plan note Diagnostic Tests PendingUrine Culture 10/29/23 [facility] Evaluation + Plan note Note Date & Type Note Facility Evaluation + Plan note No data available for this section [facility] Hospital Discharge instructions Note Date & Type Note Facility Hospital Discharge instructions No data available for this section [facility] Progress note Note Date & Type Note Facility Progress note No data available for this section [facility] Summary Purpose Family History No Family History Records Found Advance Directives No Advanced Directives Records Found Additional Source Comments Care Team (unrecognized sect ion and content) Personnel Name: CELINA DELGADO Address: [address] [place] [address] [facility] Physicians [place], [place] [address] Care Team Personnel Name: CELINA DELGADO Position: P4 Advanced Ornamental Plasterer Helper Member Role: Primary Care Physician Address: Address: [address] [facility] [place] [address]- Name: ISAEL ACEVEDO MD Position: P3 Physician - Urologist Member Role: Urologist Address: Address: [address] [place] [address] [address] [place] [address]- Name: Brenda Gilbert RN Position: ED RN Member Role: ED RN Name: TROY LAM DO Position: ED Physician Member Role: ED Physician Address: Address: [facility] [address] [place] [address]- Care Team Related Persons Name: MARNIVI Name: VI GRIDER Thang Address: Home [address] [place], [place] [phone] (unrecognized sect ion and content) No Status [...] BE BASED ON THE PRIMARY CLINICAL RECORDS. [employer] provides no warranty or guarantee of the accuracy or completeness of information in this document.
--- OUTSIDE RECORDS SUMMARY | 2023-11-29 12:20 | XMS RPT_ITS | CCD ---
Author Name Unknown Address [address] [place] [address] Organization [facility] Care Team Providers Care Folder Machine Adjuster Name Role Phone CELINA SLAUGHTER Primary Care Physician [phone] TAMIA SCHERER, ALEM Cotter Attending Unavailable CELINA [...] qDay, # 90 tab(s), 3 Refill(s), Pharmacy: [facility]/pharmacy #[id number], Hyperlipidemia, 166.37, cm, 04/28/21 8:10:00 EDT, Height, [...] Non-Invasive 82 mm[Hg] DR TROY LAM DO [facility] 10-29-2023 18:50-0500 Heart rate 63 /min DR TROY LAM DO [facility] 10-29-2023 18:50-0500 Reason For Taking VItal Signs DR TROY LAM DO [facility] 10-29-2023 18:50-0500 Respiratory rate 18 /min DR TROY LAM DO [facility] 10-29-2023 18:50-0500 Systolic Blood Pressure Non-Invasive 129 mm[Hg] DR TROY LAM DO [facility] 10-29-2023 16:45-0500 Body temperature 98.42 [degF] DR TROY LAM DO [facility] 10-29-2023 16:45-0500 Diastolic Blood Pressure Non-Invasive 80 mm[Hg] DR TROY LAM DO [facility] 10-29-2023 16:45-0500 Heart rate 68 /min DR TROY LAM DO [facility] 10-29-2023 16:45-0500 Respiratory rate 18 /min DR TROY LAM DO [facility] 10-29-2023 16:45-0500 Systolic Blood Pressure Non-Invasive 132 mm[Hg] DR TROY LAM DO [facility] Encounters Encounter Date Encounter Type Care Provider Facility Start: 11-02-2023 End: 11-02-2023 Emergency department patient visit ALEM CANTRELL MD Facility:B Start: 10-29-2023 End: 10-29-2023 Emergency department patient visit TROY LAM Facility:B Start: 10-29-2023 End: 10-29-2023 Emergency department patient visit DR TROY LAM DO [facility] Start: 03-30-2022 End: 03-30-2022 Patient encounter procedure CELINA DELGADO PROFESSOR COMPUTER SCIENCE-GUM ROLLING MACHINE TENDER [facility] Procedures Date Procedure Procedure Detail Performing Clinician Finger structure (body structure) CELINA DELGADO PROFESSOR COMPUTER SCIENCE-GUM ROLLING MACHINE TENDER Immunizations Immunization Date Immunization Notes Care Provider Fa [facility] 07-28-2021 SARS-CoV-2 mRNA (tozinameran) vaccine CELINA DELGADO PROFESSOR COMPUTER SCIENCE-GUM ROLLING MACHINE TENDER [facility] 06-30-2021 SARS-CoV-2 mRNA (tozinameran) vaccine CELINA DELGADO PROFESSOR COMPUTER SCIENCE-GUM ROLLING MACHINE TENDER [facility] Payers Date Payer Category Payer Private Health Insurance [id number] 1955 Unknown [id number] 1955 Unknown [id number] Social History Date Type Detail Facility Start: 03-30-2022 End: 10-29-2023 Tobacco smoking status Ex-smoker (finding) [facility] Sex Assigned At Male [facility] Functional Status Date Assessment Result Facility 10-29-2023 Functional Status Standard Safet y ID band on, Call device within reach, Bed in low position, Wheels locked, Bedside Cart Locked, Visitor at bedside, Safety level maintained [facility] 10-29-2023 Functional Status [facility] spital [facility] Mental Status Date Assessment Result Facility 10-29-2023 Mental Status Orientation Oriented x 4 [facility] 10-29-2023 Mental Status [facility] Clinical Note 11-01-2023 Note Date [...] Locations *1: This test was performed at: [facility], [address] [place] [address], [facility] , [facility] Discharge instructions 10-29-2023 Note Date & [...] to keep medicine down Weakness or dizziness 8598-3492 [employer]. [address] [place] [address], [place] [address]. All rights reserved. This information is not [...] for 6 hours Weakness, dizziness, or fainting 5737-1690 [employer]. [address] [place] [address], [place] [address]. All rights reserved. This information is not intended as a substitute for professional medical care. Always follow your healthcare professional's instructions. Follow Up Care 10/29/2023 16:44:06 With:ISAEL ACEVEDO MD, [employer] [facility] [employer] Address: [address] [place] [phone] When:2-4 days [facility] Emergency department Discharge summary 10-29-2023 Note Date & Type Note Facility 10-29-2023 Emergency department Discharge summary Discharge Instructions Thank you for allowing [facility] to assist you with your healthcare needs. The following is important discharge information regarding your hospital visit. Diagnosis from Today's Visit Urinary retention What to Do Next Instructions from Your Care Team No qualifying data available. Post Acute Orders No qualifying data available. You Need to Schedule the Following Appointments Follow Up with ISAEL ACEVEDO MD, Realie When Within 2-4 days Where: [address] [place] [phone] Allergies NKA Medications Please ask your primary [...] keep medicine down Weakness or dizziness [employer]. [address] [place] [address], [place] [id number]. All rights reserved. This information is not [...] 6 hours Weakness, dizziness, or fainting [employer]. [address] [place] [address], [place] [address]. All rights reserved. This information is not intended as a substitute for professional medical care. Always follow your healthcare professional's instructions. Additional Information VACCINATE! IT SAVES LIVES! Members of the community who have not yet received the COVID-19 vaccine and would like to receive it can visit one of [facility] vaccine clinics. There are many vaccine clinic locations within the [facility]. For locations and available times, please visit www.gettheshot.coronavirus.[place].g ov/. It is important to note that some COVID mobile vaccine clinics are held outdoors and may be canceled in rainy or stormy conditions. To learn more about pediatric vaccinations (ages 5-11), we invite you to visit the [facility] webpage. https://www.Spire Sensibos.org/pa ges/2993-Uiwaa-Cbddsfkqdlj-Freque vhvr-Iuhpm-Vbpraytvu.html To learn more about the COVID-19 vaccine, we invite you to visit the CDC website for a list of frequently asked questions. https://www.cdc.gov/coronavirus/2 019-ncov/vaccines/faq.html [facility] Patient Portal Access Instructions: Stay connected with your healthcare team and access your personal medical information anytime with the [facility] Patient Portal. If you would like a full copy of your medical records please contact the [facility] Medical Records Department Sunday through Sunday between 8a.m. and 4:30p.m. Please follow the directions below to access the portal: 1.Access the email account you provided upon registration to the hospital.2.Look for an invitation email from [facility].3.Open the email and access the invitation link: Accept Invitation to [facility]CrowdFlik4.Fill in the required tierney to create your account. Sign into www.Chip Estimate with your username and password that you [...] you will allow to register on the [employer] Patient Portal for access to your information. You can also access the [employer] Patient Portal on the BravoSolution kathy. Simply click on Health Records under Health Data and then click on the Breezeplay logo. HOW TO SAFELY DISPOSE OF PRESCRIPTION [...] Call your local pharmacy or go to http://First Insight.Rapid Action Packaging/5B0Pc7o to find one close to you.3.Make use of household items: Use cat litter or old coffee grounds to dispose medications if other options are not available. Mix your drugs with these household products, seal them in an airtight container and throw it into the garbage. Call [facility]: [phone] to be sure your drugs can be [...] aware that I should contact my doctor. Patient/Blood Donor Recruiter Signature: Date/Time: Relationship to Patient: ____ Witness Name/Signature: Date/Time: [facility] Evaluation + Plan note 10-29-2023 Note Date & Type Note Facility 10-29-2023 Evaluation + Plan note Diagnostic Tests PendingUrine Culture 10/29/23 [facility] Evaluation + Plan note Note Date & Type Note Facility Evaluation + Plan note No data available for this section [facility] Hospital Discharge instructions Note Date & Type Note Facility Hospital Discharge instructions No data available for this section [facility] Progress note Note Date & Type Note Facility Progress note No data available for this section [facility] Summary Purpose Family History No Family History Records Found Advance Directives No Advanced Directives Records Found Additional Source Comments Care Team (unrecognized sect ion and content) Personnel Name: CELINA DELGADO Address: [address] [place] [address] Family Phys[facility] [place], [place] [address] Care Team Personnel Name: CELINA DELGADO Position: P4 Advanced Hematology Nurse Member Role: Primary Care Physician Address: Address: [address] [facility] [place] [address]- Name: ISAEL ACEVEDO MD Position: P3 Physician - Urologist Member Role: Urologist Address: Address: [address] [place] [address] [address] [place] [address]- Name: Brenda Gilbert RN Position: ED RN Member Role: ED RN Name: TROY LAM DO Position: ED Physician Member Role: ED Physician Address: Address: [facility] [address] [place] [address]- Care Team Related Persons Name: MARNIVI Name: VI GRIDER Thang Address: Home [address] [place], [place] [phone] (unrecognized sect ion and content) No Status [...] BE BASED ON THE PRIMARY CLINICAL RECORDS. [employer] provides no warranty or guarantee of the accuracy or completeness of information in this document.
--- NOTE | 2023-11-29 13:22 | DCINST_ITS ---
Discharge Instructions Diet Discharge Diet: Low fat / Low cholesterol Activity Discharge Activity: Return to Normal Activity Weight Bearing Status: Weight bearing as tolerated Dressing / Incision Call your doctor if you observe: Fever of 101 or Higher, Shortness of breath, Dizziness, Swelling in the ankles, Chest pain and Increased palpitations (irregular heartbeat) Follow Up Care Test Results: Test results from this visit will be discussed in further detail at your follow- up appointment, if applicable. Discharge Plan Admission Admit Date/Time: 11/26/23 13:13 Primary Reason for Your Visit: hematuria, bladder mass, UTI Attending Provider: Breann Graham Primary Care Provider: Paulino Troy NP Consulting Providers: Freddie Hinkle; Ervin Anderson Instructions Patient Instructions: Hematuria: Possible Causes, Understanding Bladder Cancer, Staging of Bladder Cancer Discharge Orders/Prescriptions Prescriptions: New sulfamethoxazole-trimethoprim 800-160 mg Tablet 1 tab PO BIDCM Qty: 8 0RF cefdinir 300 mg capsule 300 mg PO BID Qty: 10 0RF Continued tamsulosin 0.4 mg capsule 0.4 mg PO QHS Referrals / Follow Up: Freddie Hinkle MD [Med Staff - Active Staff] - Within 1 Week Paulino Troy NP, FIBERGLASS MACHINE OPERATOR-C [Primary Care Provider] - Within 2 Weeks Disposition Disposition (needs filled in before D/C Order can be placed): Home, Self Care
--- NOTE | 2023-11-29 13:24 | DS.PCM_ITS ---
Providers Date of Admission: 11/26/23 Date of Discharge: 11/29/23 Primary Care Physician: LINDA Sanchez Consultations 11/26/23 13:06 Consult: Urology Routine Consulting Provider: Freddie Hinkle Reason for Consult: bladder mass EMERGENT Consult: Yes MD Notified: Yes Date Notified: 11/26/23 Time Notified: 13:07 Method of Notification: ED Physician Initiated Reason For Visit: ACUTE BLOOD LOSS ANEMIA, GROSS HEMATUREA Diagnosis Discharge Diagnosis (1) Acute blood loss anemia: Status: Acute Code(s): D62 - Acute posthemorrhagic anemia (2) Acute UTI: Status: Acute Code(s): N39.0 - Urinary tract infection, site not specified (3) Edema of right lower leg: Status: Acute Code(s): R60.0 - Localized edema (4) Anemia: Status: Acute Code(s): D64.9 - Anemia, unspecified (5) Bladder mass: Status: Acute Code(s): N32.89 - Other specified disorders of bladder (6) Gross hematuria: Status: Acute Code(s): R31.0 - Gross hematuria Plan ##Acute blood loss anemia due to hematuria * has a history of bladder cancer * had emergent cystoscopy with resection of bladder mass and cystoscopy evacuation of blood clots * transfused with a total of 5 units of PRBCs since admission. * Hb is now 7.8 today * continuous bladder irrigation has been discontinued per urology. * urology on board * #UTI: urinalysis showed evidence of UTI. On IV ceftriaxone. #Bladder cancer: as above. 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 Stable #BPH wih obstruction:Slater catheter in situ DVT prophylaxis: SCDs Medications at Discharge Home Medications tamsulosin 0.4 mg capsule 0.4 mg PO QHS PROSTATE 11/26/23 cefdinir 300 mg capsule 300 mg PO BID #10 caps 11/29/23 sulfamethoxazole 800 mg-trimethoprim 160 mg tablet 1 tab PO BIDCM #8 tabs 11/29/23 Hospital Course Procedures - (trans urethral resection of bladder mass with cystoscopy and evacuation of clots) Summary of Care Provided Minutes Spent on Discharge: 45 Hospital Course: Patient is a 68-year-old male with a past medical history as outlined was admitted through the ED on 11/26/2023 with a complaint of worsening fatigue and weakness. He had a known history of bladder cancer diagnosed in 2020 and was thought to be a slow growing bladder cancer at that time so no intervention was required. He had however started noticing he was having hematuria around [place] and went to an outside hospital ED for evaluation. He had a Slater catheter inserted there and followed up with urology. He had a cystoscopy done in the office and plan was to continue to have the Slater catheter in situ and for tumor excision at the end of November. However the hematuria intensified wit h associated clot formation he became more weak and lightheaded and fatigued. He also has shortness of breath with exertion. He therefore came into the ED. On admission, hemoglobin was 4.3 and he was admitted and managed for acute blood loss anemia due to hematuria in the setting of bladder cancer. He was transfused with a total of 5 units of packed red blood cells throughout the course of the admission. He was also diagnosed with UTI. He was placed on IV ceftriaxone empirically. Urology was consulted and patient had emergent transurethral resection of the bladder mass as well as cystoscopy with evacuation of clots. Postop course was uncomplicated and patient was transferred out of the ICU after he had continuous bladder irrigation which led to cessation of the hematuria. Hemoglobin came up to 8.3 at time of discharge. He remained stable and was discharged on 11/29/2023. Urine cultures grew Staphylococcus aureus as well as a gram-positive cocci and gram-negative mirlande. He was therefore switched to p.o. Bactrim. He is to follow-up with his primary care doctor and with urology within 1 to 2 weeks. He was discharged with a Slater catheter in situ. Patient was seen and examined prior to discharge. He had no active complaints and had an uneventful night. Labs and vitals reviewed. Home medication reviewed and reconciled. Physical Exam Const alert, oriented x3, no apparent distress, average body habitus and well nourished General Appearance: cooperative, comfortable, well kempt and well developed Orientation / Consciousness: awake HEENT normocephalic, head/scalp atraumatic, hearing grossly normal bilaterally, nasal mucous membranes and turbinates normal, moist oral mucous membranes and oropharynx normal Mouth: oral and palatal mucosa normal Eyes PERRL, EOMs intact bilaterally and conjunctivae normal Neck full ROM, no lymphadenopathy, supple and no JVD Lymph Lymphatic: no lymphadenopathy noted and no lymphedema noted Chest inspection of chest normal Resp normal respiratory effort, normal air movement, no retractions, no use of accessory muscles and clear to auscultation bilaterally Cardio regular rate, regular rhythm, S1 normal heart sound, S2 normal heart sound, no murmurs and peripheral pulses 2+ throughout GI normal to inspection, nondistended, normoactive bowel sounds, soft to palpation, non-tender and non-distended Narrative: hematuria has resolved Bladder / Kidney Exam: catheter in place, bladder normal to palpation and no CVA tenderness Back/Spine normal ROM Extremity normal to inspection, full ROM, normal capillary refill, no clubbing, cyanosis or edema and no calf tenderness General Extremity: no tenderness to palpation of joints or extremities Skin no rashes or lesions noted General Skin Exam: no breakdown and turgor normal Neuro oriented x3, CN's II-XII intact bilaterally, moves all extremities, no focal motor deficits, no sensory deficits noted and deep tendon reflexes 2+ bilaterally Sensorium / Orientation: awake and alert Speech: speech normal Motor Exam: strength 5/5 throughout and general weakness Psych mental status grossly normal, thought process normal, cooperative and affect normal Appearance: appropriate Weight / BMI Weight Weight: 178 lb 12.718 oz Body Mass Index (BMI) 28.8 ABG / Lab / Microbiology Data 11/29/23 06:40 11/29/23 06:40 Laboratory: Laboratory Results - last 24 hr 11/26/23 11:25: Diff Path Review Reviewed 11/29/23 06:40: WBC 6.7, RBC 3.86 L, Hgb 8.3 L, Hct 28.1 L, MCV 72.8 L, MCH 21.5 L, MCHC 29.5 L, RDW Std Deviation 67.7 H, RDW Coeff of Malgorzata 26.9 H, Plt Count 326, MPV 9.6, Immature Gran % (Auto) 0.600, Neut % (Auto) 66.1, Lymph % (Auto) 15.0 L, King % (Auto) 11.3 H, Eos % (Auto) 5.6 H, Baso % (Auto) 1.4 H, Absolute Neuts (auto) 4.4, Absolute Lymphs (auto) 1.00, Nucleated RBC % 0, Anisocytosis 2+, Sodium 137, Potassium 4.2, Chloride 112 H, Carbon Dioxide 24.0, Anion Gap 1 L, BUN 17, Creatinine 0.85, Estim Creat Clear Calc 85.51, Est GFR (MDRD) Af Amer 116, Est GFR (MDRD) Non-Af 96, BUN/Creatinine Ratio 20.0, Glucose 110 H, Calcium 8.6 Microbiology: Microbiology 11/26/23 12:55 Urine Catheter - Slater Urine Culture - Preliminary Staphylococcus aureus Gram negative mirlande Gram Positive Cocci Alpha hemolytic organism D/C Instructions Discharge Diet: Low fat / Low cholesterol Discharge Activity: Return to Normal Activity Weight Bearing Status: Weight bearing as tolerated Call your doctor if you observe: Fever of 101 or Higher, Shortness of breath, Dizziness, Swelling in the ankles, Chest pain and Increased palpitations (irregular heartbeat) Meaningful Use Info Meaningful Use Diagnoses (Choose all that apply): None applicable Discharge Plan Admission Admit Date/Time: 11/26/23 13:13 Primary Reason for Your Visit: hematuria, bladder mass, UTI Attending Provider: Breann Graham Primary Care Provider: Paulino Troy NP Consulting Providers: Freddie Hinkle; Ervin Anderson Instructions Patient Instructions: Hematuria: Possible Causes, Understanding Bladder Cancer, Staging of Bladder Cancer Discharge Orders/Prescriptions Prescriptions: New sulfamethoxazole-trimethoprim 800-160 mg Tablet 1 tab PO BIDCM Qty: 8 0RF cefdinir 300 mg capsule 300 mg PO BID Qty: 10 0RF Continued tamsulosin 0.4 mg capsule 0.4 mg PO QHS Referrals / Follow Up: Freddie Hinkle MD [Med Staff - Active Staff] - Within 1 Week Paulino Troy NP, LEO-C [Primary Care Provider] - Within 2 Weeks Disposition Disposition (needs filled in before D/C Order can be placed): Home, Self Care Charges/Coding Visit Charges Inpatient E&M: 17151 Disch Hosp >30min
--- NOTE | 2023-11-29 13:39 | CASEMGMT ---
Patient has order for discharge. RN CM in to discuss needs at discharge. Patient denies needs or help at discharge. Patient had no further questions or concerns.
--- NOTE | 2023-11-29 14:35 | PHA.DC.MC.R ---
Pharmacy [facility] has performed discharge medication reconciliation and counseling for this patient. 1. CEFDINIR 300MG PO BID X 5 DAYS 2. SULFAMETHOXAZOLE/TRIMETHOPRIM DS 1T PO BIDCM X 4 DAYS The patient's discharge medication list was reviewed for discrepancies and discrepancies were resolved. The patient was counseled on the following discharge medications and changes in medications for homegoing were reviewed. The Reason for Use, instructions for use, and potential side effects were reviewed for all new medications. The patient's questions regarding all of their medications were answered. The patient was able to verbally demonstrate an understanding of their discharge medications. Medications at Discharge Home Medications tamsulosin 0.4 mg capsule 0.4 mg PO QHS PROSTATE 11/26/23 cefdinir 300 mg capsule 300 mg PO BID #10 caps 11/29/23 sulfamethoxazole 800 mg-trimethoprim 160 mg tablet 1 tab PO BIDCM #8 tabs 11/29/23
[2023-11-29 15:20] VITALS: BP 114/90; PULSE 87; RESP 18; TEMP 36.9; O2SAT 96
== END 2023-11-29 15:42 | disposition home or self-care (01) | DRG 669 ==
LOC: ED 13:25 → ICU 13:57 → PCU 11-29 11:08 → ED 11-29 11:57 → ICU 11-29 11:58 → PCU 11-29 11:58
PROVIDERS: Physician Assistant; Urology; Admitting Provider Hospitalist; Emergency Provider Emergency Medicine; PCP Nurse Practitioner Primary Care; Visit Provider Student in an Organized Health Care Education/Training Program
PROC: 0TBB8ZZ Excision of Bladder, Via Natural or Artificial Opening Endoscopic (ICD-10-PCS; principal; 2023-11-27 02:00)
DX: C67.8 Malignant neoplasm of overlapping sites of bladder (principal); D62 Acute posthemorrhagic anemia; N13.8 Other obstructive and reflux uropathy; F17.200 Nicotine dependence, unspecified, uncomplicated; B95.61 Methicillin susceptible Staphylococcus aureus infection as the cause of diseases classified elsewhere; B95.7 Other staphylococcus as the cause of diseases classified elsewhere; N30.21 Other chronic cystitis with hematuria; N40.1 Benign prostatic hyperplasia with lower urinary tract symptoms; R60.0 Localized edema; Z79.899 Other long term (current) drug therapy; Z23 Encounter for immunization
CPT/HCPCS: 36415; 80048; 81001; 82607; 82728; 82746; 83540; 83550; 85025; 85027; 85610; 85730; 86850; 86900; 86901; 86920; 86922; 87077; 87086; 87088; 87186; 88304; 88305; 88307; 93005; 93970; 94668; 97161; 99252; 99284; 99406; J7050; P9016; P9040; 90662; A4216; G0463; J1940; J2405

== ENCOUNTER 2024-08-15 07:40 | Day surgery (SDC) | payer MEDICARE, SELFPAY ==
[2024-08-15] VITALS (9 sets, daily range): BP systolic 137–173; BP diastolic 75–104; PULSE 61–79; RESP 16–18; TEMP 36.2–36.9; O2SAT 95–98; BMI 27.0
--- NOTE | 2024-08-15 08:27 | PCM.PRE.AN2 ---
ASA Classification* ASA Classification ASA Classification: 2 Assessment & Plan Anesthesia* Anesthesia Assessment Anesthesia Assessment: Discussed sedation and/or anesthesia options, risks, benefits, and alternatives with patient/parents/legal guardian/POA. Questions invited. The patient/parents/legal guardian/POA seems to understand and agrees to proceed with anesthesia plan. Reviewed the physical assessment, medical history, allergy history and patient home medications list prior to surgery/procedure/anesthetic and documented any changes. Performed airway and anesthesia risk assessments. Anesthesia Type Anesthesia Type: General (see written pre anesthesia record for full assessment) Anesthesia Focused Assessment* Temperature: 97.2 F Pulse Rate: 65 Blood Pressure: 137/90 Respiratory Rate: 16 Pulse Ox: 97 Airway Assessment Mouth opens: >3 cm Mallampati Score: II Focused Labs Anesthesia Preop lab: CBC WBC 6.7 K/mm3 (4.4-11.0) 11/29/23 06:40 RBC 3.86 M/mm3 (4.6-6.2) L 11/29/23 06:40 Hgb 8.3 g/dL (13.0-16.5) L 11/29/23 06:40 Hct 28.1 % (40-54) L 11/29/23 06:40 Plt Count 326 K/mm3 (150-450) 11/29/23 06:40 CHEMISTRY Potassium 4.2 mmol/L (3.5-5.1) 11/29/23 06:40 Sodium 137 mmol/L (136-145) 11/29/23 06:40 BUN 17 mg/dL (7-18) 11/29/23 06:40 Creatinine 0.85 mg/dL (0.70-1.30) 11/29/23 06:40 Glucose 110 mg/dL (74-106) H 11/29/23 06:40 COAG PT 13.8 SECONDS (11.7-14.9) 11/27/23 01:25 Pre-Assessment Diagnosis/Proposed Procedure Planned Operative Procedure(s): TURBT WITH MITOMYCIN C Anesthesia History 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 When Was Last Pacemaker Check QUESTION #4 FULL TEXT: You/Your Family Experience fever (hyperthermia) with Anesthesia Last Oral Intake Last Oral intake: Last Oral Intake NPO since 05:00 08/15/24 08:18 Meds taken in AM with sips of Yes 08/15/24 08:18 water? Meds patient instructed to take am of surgery PONV PONV - electronic heat seal operator: PONV - electronic heat seal operator Female No 08/05/24 11:03 HX of Motion Sickness No 08/05/24 11:03 HX of N/V After Surgery No 08/05/24 11:03 Non-Smoker No 08/05/24 11:03 Duration of Surgery greater Yes 08/05/24 11:03 than 60 minutes Number of Risk Factors 1 08/05/24 11:03 PONV Score Low Risk 08/05/24 11:03 Height & Weight Height & Weight: Anesthesia: Height & Weight Height 5 ft 6 in 08/15/24 08:18 Weight: 75.9 kg 08/15/24 08:18 Body Mass Index (BMI) 27.0 08/15/24 08:18 Respiratory Assessment Respiratory Assessment - electronic heat seal operator: Respiratory Tract Infection Hx - electronic heat seal operator Hx Respiratory Tract Infection No 08/05/24 11:03 STOP Sleep Apnea STOP Sleep Apnea - electronic heat seal operator: STOP Sleep Apnea - electronic heat seal operator Hx Hypertension No 08/05/24 11:03 Hx Sleep Apnea No 08/05/24 11:03 CPAP BIPAP Do you snore loudly (louder Yes 08/05/24 11:03 than talking or can be heard Do you often feel tired/ No 08/05/24 11:03 fatigued/ sleepy during daytime? Has anyone observed you stop No 08/05/24 11:03 breathing during sleep? STOP Results Negative 08/05/24 11:03 QUESTION #5 FULL TEXT : Do you snore loudly (louder than talking or can be heard through closed doors)? 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 Specify any problems Hx of Preganancy in last 3 N/A 08/05/24 11:03 Months Nurse Filling Out Transfusion DSCHRIBER 08/05/24 11:03 & Questions: Date: 08/05/24 08/05/24 11:03 Time: 11:05 08/05/24 11:03 Patient unable to answer at this time (ie. confused, unrespo /Reproduction History /Reproductive History - electronic heat seal operator: /Reproductive Hx- electronic heat seal operator Hx Now No 08/05/24 11:03 Gestational Age (in weeks): EDC: Hx Hx Para Hx Section SAB No 08/05/24 11:03 Active Medications Active Medications: Current Medications Generic Name Dose Route Start Last Admin Trade Name Freq PRN Reason Stop Dose Admin Cefazolin Sodium 2 gm/ N/A 20 mls @ 400 mls/hr 08/15/24 09:45 IV 08/15/24 09:47 PREOP ONE Mitomycin 40 mg/ N/A 40 mls @ 2,400 mls/hr 08/15/24 09:45 INSTILLAT 08/15/24 09:46 X1 ONE PFSH Medical History Loose, teeth Cancer Restless legs Back pain Hoarseness History of pain when walking History of edema Acute blood loss anemia Acute UTI Edema of right lower leg Anemia Wears glasses Alcohol use Arthritis Smoker Bladder mass Hearing loss, left Hearing loss, right Home Medications ?Medication ?Instructions ?Recorded ?Last Taken ?Type acetaminophen 500 mg tablet 1,000 mg PO Q6H PRN pain 08/05/24 Unknown History (Acetaminophen Extra Strength) Allergy/AdvReac Type Severity Reaction Status Date / Time No Known Allergies Allergy Verified 08/05/24 11:01 Surgical History Hx of surgical procedure Hx of surgical amputation of finger Hx of hernia repair History of transurethral resection of bladder tumor (TURBT) Social History Smoking Status: Light Smoker (<10/day) Review of Systems (Anesthesia) ROS Narrative System reviewed and no additional complaints, except as documented.
[2024-08-15] MEDS: Cefazolin 2 GM in Syringe IV (10:13)
[2024-08-15] MEDS: MitoMYcin 40 MG in Syringe 1 EACH 2400 MG INSTILLAT (10:52)
--- NOTE | 2024-08-15 10:58 | PCM.HP.STD ---
HPI - General General Date of Admission: 08/15/24 Chief Complaint: Recurrent bladder cancer HPI Narrative LEILANI GRIDER, is a 69 M who presents for transurethral resection of recurrent bladder cancer PFSH Medical History Loose, teeth Cancer Restless legs Back pain Hoarseness History of pain when walking History of edema Acute blood loss anemia Acute UTI Edema of right lower leg Anemia Wears glasses Alcohol use Arthritis Smoker Bladder mass Hearing loss, left Hearing loss, right Home Medications ?Medication ?Instructions ?Recorded ?Last Taken ?Type acetaminophen 500 mg tablet 1,000 mg PO Q6H PRN pain 08/05/24 Unknown History (Acetaminophen Extra Strength) ibuprofen 600 mg tablet 600 mg PO Q6H PRN fever or pain 08/15/24 Unknown Rx #20 tabs Allergy/AdvReac Type Severity Reaction Status Date / Time No Known Allergies Allergy Verified 08/05/24 11:01 Surgical History Hx of surgical procedure Hx of surgical amputation of finger Hx of hernia repair History of transurethral resection of bladder tumor (TURBT) Social History Smoking Status: Light Smoker (<10/day) Vital Signs Vital Signs Vital Signs: 08/15/24 08:18 08/15/24 08:18 08/15/24 08:27 Temperature 97.2 F L 97.2 F L Temperature Source Temporal Pulse Rate 65 65 Respiratory Rate 16 16 Respiratory Pattern Normal Blood Pressure 137/90 H 137/90 H Blood Pressure Mean 105 Blood Pressure Source Monitor Blood Pressure Position Semi-Fowlers Blood Pressure Location Left Arm Pulse Ox 97 97 Oxygen Delivery Method Room Air Weight Weight: 75.9 kg Body Mass Index (BMI) 27.0
--- NOTE | 2024-08-15 10:58 | DCINST_ITS ---
Discharge Instructions Diet Discharge Diet: No restrictions Activity Discharge Activity: Return to Normal Activity and May Not Drive (while taking narcotic pain medications.) Dressing / Incision Call your doctor if you observe: Fever of 101 or Higher Follow Up Care Please Follow Up With: Freddie Hinkle MD When: Call [phone] for an appointment Test Results: Test results from this visit will be discussed in further detail at your follow- up appointment, if applicable. Discharge Plan Admission Primary Reason for Your Visit: resection of tumors Attending Provider: Freddie Hinkle Primary Care Provider: Paulino Troy NP Instructions Print Language: Haitian Discharge Orders/Prescriptions Prescriptions: New ibuprofen 600 mg tablet 600 mg PO Q6H PRN (Reason: fever or pain) Qty: 20 0RF No Action acetaminophen [Acetaminophen Extra Strength] 500 mg tablet 1,000 mg PO Q6H PRN (Reason: pain) Referrals / Follow Up: Freddie Hinkle MD [Med Staff - Active Staff] - Paulino Troy NP, GROUND CREW SUPERVISOR-C [Primary Care Provider] - Disposition Disposition (needs filled in before D/C Order can be placed): Home, Self Care
--- NOTE | 2024-08-15 10:58 | OP.PCM_ITS ---
Report of Operation Date of Procedure: 08/15/24 Pre-Operative Diagnosis: Recurrent bladder cancer multiple Post-Operative Diagnosis: The same 13 sites of recurrence in the bladder Surgery/Procedure Performed:: Transurethral resection of bladder tumors multiple Description of Surgical Findings:: 69-year-old male was originally diagnosed with high-grade T1 invasion bladder cancer, he was then lost to follow-up and then had a recurrence recently with a lot of cancer around the bladder neck this was all resected completely and then he underwent BCG therapy for several months he was cleared and then on follow-up cystoscopy was found to have multiple recurrences with throughout the bladder that all came back at once so today I taken the surgery to the resection of all these tumor sites and then also instillation of Mitomycin-C as opposed resection dose. Patient was taken back to the operating room at this with induction of anesthesia he was placed in dorsolithotomy position. The penis and testicles were prepped and draped in usual sterile fashion, I first went in with a 21 Cypriot rigid cystourethroscope I did a wing cystoscopy identified all the visible tumors these all appeared like noninvasive papillary tumors multiple throughout the bladder I ended up counting about 13 different sites that had tumors in. I then switched over to the 24 Cypriot noncontinuous flow Olympus bipolar resectoscope and then I resected all these tumors one by one using the loop cautery I did not get any specimen because mostly just cauterize all these tumors and then after doing extensive amount of cauterization of all these tumors total tumor burden was probably about 3-1/2 to 4 cm in size in total but there were 13 different sites inside the bladder each site was about 1-1/2 cm in size so extensive amount of recurrent tumors within the bladder. After these were all resected I then used bluelight cystoscopy I did not identify any other tumor sites the right ureter orifice was clear of any tumors in the left ureter orifice had only 1 tumor very close to the orifice, the left ureter orifice had been resected back from prior resection. I then placed a Slater catheter bladder and we put Mitomycin-C into the bladder and clamped it off patient anesthetic was reversed with affect to the PACU with the catheter clamped the nurses will drain the Mitomycin-C and then he will go home today without a catheter follow- up in the office to review his postop course and then will probably plan for Mitomycin-C treatments in the office time x6. Surgeon: Freddie Hinkle Type of Anesthesia: General Drains: drain Admit VTE Documentation VTE Present on Admission: No VTE Mechan Device Prophylaxis: SCD's VTE Pharm Prophylaxis ordered?: No
--- NOTE | 2024-08-15 11:07 | PCM.POST.ANE ---
Anesthesia: Postop Eval I Current Vital Signs Temperature: 98.5 F Pulse Rate: 78 Blood Pressure: 173/104 Respiratory Rate: 18 Pulse Ox: 98 Oxygen Delivery Method: Room Air Assessment Airway patent: Yes Spontaneous unlabored respirations: Yes Mental status: Awake and Calm nausea: No Vomiting: No Anesthesia Complication: No Fluid Hydration Crystalloid volume administer (ml): 600 Total IV fluid infused: 600 Progress Note Anesthesia document: Postop Eval 1 completed: Yes
--- NOTE | 2024-08-15 11:20 | POSTOPAN2_ITS ---
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.[email or web address] Spontaneous unlabored Yes 08/15/24 11:08 ARIANE respirations Mental status Awake,Calm 08/15/24 11:08 STROKE BELT SANDER OPERATOR.BETZY nausea No 08/15/24 11:08 STROKE BELT SANDER OPERATOR.BETZY Vomiting No 08/15/24 11:08 ARIANE Anesthesia Postop Eval I: Fluid Summary Crystalloid volume administer 600 08/15/24 11:08 ROSY.BETZY (ml) Colloids volume administered ( ml) Blood Product volume administered (ml) Total IV fluid infused 600 08/15/24 11:08 ARIANE Anesthesia Postop Eval I: Summary Notes Anesthesia Complication No 08/15/24 11:08 ARIANE Anesthesia Complication Comment: Post-operative progress note Anesthesia: Postop Eval II Evaluation Mental status: Awake Pain Level: 0 nausea: No Vomiting: No
== END 2024-08-15 12:24 | disposition home or self-care (01) ==
LOC: SDC 07:46 → AC 07:49
PROVIDERS: PCP Nurse Practitioner Primary Care; Referring Provider Urology; Visit Provider Urology
PROC: 0T5B8ZZ Destruction of Bladder, Via Natural or Artificial Opening Endoscopic (ICD-10-PCS; CPT 51720; principal; 2024-08-15 09:35)
DX: C67.4 Malignant neoplasm of posterior wall of bladder (principal); N40.1 Benign prostatic hyperplasia with lower urinary tract symptoms; N13.8 Other obstructive and reflux uropathy; F17.200 Nicotine dependence, unspecified, uncomplicated
CPT/HCPCS: 52234; 00912; J7120; J9280; J2405

== ENCOUNTER 2024-10-06 16:27 | Inpatient (IN) | payer MEDICARE, SELFPAY ==
[2024-10-06 16:28] VITALS: BP 130/79; PULSE 103; RESP 20; TEMP 36; O2SAT 96; BMI 27.2
--- NOTE | 2024-10-06 16:56 | EDS_ITS ---
HPI History of Present Illness Chief Complaint: Complaint Informant: patient Narrative Narrative: Patient had his fifth round of intravesicular chemotherapy today for bladder cancer. He has been having terrible bladder spasms with this and his urologist prescribed him a medication to take for that, he took it for the first time today after his therapy session, and he states he broke out in hives that are very itchy, his penis is swollen and itchy, and painful when he started peeing blood today. This is the first time in a long time he has urinated blood, this happened in the beginning when he was diagnosed. Now he has symptoms of urinary retention. [facility] Medical History Loose, teeth Cancer Restless legs Back pain Hoarseness History of pain when walking History of edema Acute blood loss anemia Acute UTI Edema of right lower leg Anemia Wears glasses Alcohol use Arthritis Smoker Bladder mass Hearing loss, left Hearing loss, right Home Medications ?Medication ?Instructions ?Recorded ?Last Taken ?Type acetaminophen 500 mg tablet 1,000 mg PO Q6H PRN pain 08/05/24 Unknown History (Acetaminophen Extra Strength) ibuprofen 600 mg tablet 600 mg PO Q6H PRN fever or pain 08/15/24 Unknown Rx #20 tabs Allergy/AdvReac Type Severity Reaction Status Date / Time No Known Allergies Allergy Verified 08/05/24 11:01 Surgical History Hx of surgical procedure Hx of surgical amputation of finger Hx of hernia repair History of transurethral resection of bladder tumor (TURBT) Social History Smoking Status: Light Smoker (<10/day) ROS ROS ED Constitutional Constitutional ED: Denies chills or fever(s) Eyes Eyes: Denies change in vision or diplopia ENT ENT ED: Denies rhinorrhea or sore throat Cardiovascular Cardiovascular: Denies chest pain or palpitations Respiratory/Chest Respiratory/Chest: Denies cough or dyspnea Gastrointestinal Gastrointestinal: Denies abdominal pain, diarrhea, nausea or vomiting Genitourinary Genitourinary ED: Reports as per HPI, change in urinary stream, difficulty urin ating, hematuria and other Details: bladder pain ; Denies dysuria Musculoskeletal Musculoskeletal: Denies back pain or neck pain Integumentary Denies abscess or rash Neurologic Neurologic: Denies headache(s), paresthesias or weakness EXAM Physical Exam Const Vital Signs: 10/06/24 16:28 Temperature 96.8 F L Temperature Source Temporal Pulse Rate 103 H Respiratory Rate 20 H Blood Pressure 130/79 H Blood Pressure Mean 96 Pulse Ox 96 Oxygen Delivery Method Room Air Positive well nourished and well developed Constitutional Narrative: Standing, uncomfortable no distress General Appearance ED: well developed and NAD HEENT Reports moist mucous membranes normocephalic and atraumatic Eyes PERRL and EOMs intact bilaterally Neck full ROM and supple Resp normal respiratory effort and clear to auscultation bilaterally Cardio regular rate, regular rhythm and no murmurs GI non-tender and non-distended Auscultation: normoactive bowel sounds Palpation: soft no CVA tenderness Narrative: Penile shaft appears somewhat edematous, flaccid, the glans is normal circumcised. Small metal blood at the meatus no active bleeding. Spots of blood on the underwear that he has on. Back/Spine no CVA tenderness General Back: other FROM Extremity normal to inspection General Extremety ED: Negative for edema, pulses abnormal or tenderness General Extremity: Negative for edema or pulses abnormal Neuro oriented x3, CN's II-XII intact bilaterally and no sensory deficits noted Sensorium / Orientation: awake and alert Motor Exam: strength 5/5 throughout Psych Mood & Affect: anxious Skin no wounds Rashes: rashes noted Urticaria scattered on arms and legs and trunk MDM MDM MDM Narrative Medical decision making narrative: Patient was given morphine, prophylactic Zofran, and Uro-Jet before placing urinary catheter. There was gross hematuria and a few clots, this cleared with irrigation and we were able to remove the clots. He only had about 50 cc of urine come out with catheter insertion. He does still have active gross hematuria, but it is mild/light. His urine was sent for urinalysis and culture. Chemistries and blood counts are unremarkable. He is feeling a little better but still has bladder discomfort as well as discomfort from the catheter. Was also given Benadryl for the urticarial rash which helped. Discussed with his urologist Dr. Hinkle. He advised that we admit the patient, start antibiotics, and evaluate him for the possibility of infection. Lab Data Attestation: I reviewed the patient's lab results. Labs: Laboratory Results - last 24 hr 10/06/24 17:15 WBC 9.5 RBC 5.61 Hgb 14.6 Hct 47.1 MCV 84.0 MCH 26.0 L MCHC 31.0 L RDW Std Deviation 56.4 H RDW Coeff of Malgorzata 19.0 H Plt Count 326 MPV 9.3 Immature Gran % (Auto) 0.300 Neut % (Auto) 78.2 H Lymph % (Auto) 8.9 L Elk % (Auto) 7.9 Eos % (Auto) 3.9 Baso % (Auto) 0.8 Absolute Neuts (auto) 7.4 Absolute Lymphs (auto) 0.84 Nucleated RBC % 0 Sodium 140 Potassium 4.1 Chloride 111 H Carbon Dioxide 24.0 Anion Gap 4 L BUN 21 H Creatinine 1.02 Estim Creat Clear Calc 68.49 Est GFR (MDRD) Af Amer 94 Est GFR (MDRD) Non-Af 77 BUN/Creatinine Ratio 20.6 H Glucose 117 H Calcium 9.3 Urine Color Red Urine Clarity Turbid Urine pH 6.0 Ur Specific [place] 1.025 Urine Protein 500 H Urine Glucose (UA) Normal Urine Ketones 5 H Urine Occult Blood 250 H Urine Nitrite Positive H Urine Bilirubin Negative Urine Urobilinogen Normal Ur Leukocyte Esterase 100 H Urine RBC > 100 SEEN Urine WBC 10-25 SEEN Ur Squamous Epith Cells 0 SEEN Urine Bacteria 4+ Urine Mucus 0 SEEN Discharge Plan Triage Chief Complaint: Complaint ED Provider: Vahe Mullen Dx/Rx/DC Orders Clinical Impression: Hematuria, Allergic reaction caused by a drug, Bladder cancer, Painful bladder spasm Prescriptions: No Action acetaminophen [Acetaminophen Extra Strength] 500 mg tablet 1,000 mg PO Q6H PRN (Reason: pain) ibuprofen 600 mg tablet 600 mg PO Q6H PRN (Reason: fever or pain) Qty: 20 0RF Primary Care Provider: Paulino Troy NP Referrals: Freddie Hinkle MD [Med Staff - Active Staff] - Paulino Troy NP, UNIFORM ROOM ATTENDANT-C [Primary Care Provider] - Print Language: Slovenian Disposition Disposition: Acute Care [facility]
[2024-10-06] MEDS: Ondansetron 4 MG/2 ML Vial IV (17:06)
[2024-10-06] MEDS: Morphine 4 MG/ML Syringe IV (17:06)
[2024-10-06] MEDS: DiphenhydrAMINE 50 MG/ML Syringe 12.5 MG IV (17:06)
[2024-10-06] MEDS: Lidocaine Jelly 2% 20 ML Syringe (URO-JET) 1 APPLIC TOPICAL (17:07)
[2024-10-06 17:28] LABS: Mucous, Urine 0 SEEN /hpf (<or=2+); Squamous Epithelial Cells - UA 0 SEEN /hpf (0-5)
[2024-10-06 17:30] LABS: Absolute Lymphocyte Count 0.84 X10^3/uL (0.83-4.51); Absolute Neutrophil Count 7.4 X10^3/uL (2.0-7.7); Basophil# 0.08 X10^3/uL; Basophil% 0.8 % (0-1); Eosinophil# 0.37 X10^3/uL; Eosinophils% 3.9 % (0-5); Hematocrit 47.1 % (40-54); Hemoglobin 14.6 g/dL (13.0-16.5); Lymphocyte # 0.84 X10^3/ul (0.83-4.51); Lymphocyte % 8.9 % (19-41); Mean Platelet Vol. 9.3 fl (6.2-12.0); Monocyte# 0.75 X10^3/uL; Monocyte% 7.9 % (0-10); NRBC Flagged by Analyzer 0 % (0-5); Neutrophil # 7.39 X10^3/uL (2.7-7.7); Neutrophil % 78.2 % (47-70); Platelet Count 326 K/mm3 (150-450); RBC Distribution Width SD 56.4 fl (35.1-43.9); Red Blood Count 5.61 M/mm3 (4.6-6.2); White Blood Count 9.5 K/mm3 (4.4-11.0)
[2024-10-06 17:42] LABS: Color, Urine Red (Yellow); Glucose, Dipstick Normal (Normal); Ketone-Dipstick 5 mg/dl (Negative); Leukocyte Esterase-Dipstick 100 /ul (Negative); Nitrite-Dipstick Positive (Negative); Occult Blood-Urine 250 /ul (Negative); Protein-Dipstick 500 mg/dl (Negative); Specific Gravity, Urine 1.025 (1.002-1.030); Urine Bilirubin Dipstick Negative (Negative); Urine Clarity Turbid (Clear); Urine Urobilinogen Normal (Normal)
[2024-10-06 17:46] LABS: Anion Gap 4 (5-15); BUN 21 mg/dL (7-18); BUN/Creat Ratio 20.6 RATIO (10-20); Calcium,Total 9.3 mg/dL (8.5-10.1); Chloride 111 mmol/L (98-107); Creatinine, Serum 1.02 mg/dL (0.70-1.30); EST Glomerular Filtration Rate 77 mL/min (>60); Est Glom Filt Rate - Afr Amer 94 mL/min (>60); Estimated Creatinine Clearance 68.49 ml/min; Glucose 117 mg/dL (74-106); Potassium 4.1 mmol/L (3.5-5.1); Sodium Level 140 mmol/L (136-145)
[2024-10-06 18:26] LABS: Red Blood Cells-Urine > 100 SEEN /hpf (0-5)
[2024-10-06 18:27] LABS: Bacteria 4+ /hpf (None Seen)
[2024-10-06 18:28] LABS: White Blood Cells 10-25 SEEN /hpf (0-5)
[2024-10-06] MEDS: Ceftriaxone 1 GM/50 ML BAG IV (19:20)
[2024-10-06 19:24] VITALS: BP 146/87; PULSE 72; RESP 18; TEMP 36.9; O2SAT 99
[2024-10-06 20:34] VITALS: BP 137/90; PULSE 102; RESP 16; TEMP 37; O2SAT 100
[2024-10-06 20:51] VITALS: BMI 28.4
[2024-10-06] MEDS: Ketorolac 15 MG/ML Vial IV (21:10)
[2024-10-06] MEDS: 0.9% Saline Lock 10 ML Syringe IV (21:15)
[2024-10-06] MEDS: Morphine 2 MG/ML Syringe IV (22:40)
[2024-10-06] MEDS: Ciprofloxacin 400 MG/200 ML BAG 200 MG IV (22:44)
[2024-10-07 00:19] VITALS: BP 119/77; PULSE 88; RESP 18; TEMP -13.4; TEMP 7.9; O2SAT 95
[2024-10-07] MEDS: Acetaminophen 500 MG Tablet 1000 MG PO ×3 (00:20→17:12)
[2024-10-07] MEDS: Ketorolac 15 MG/ML Vial IV ×3 (04:23→17:12)
[2024-10-07] MEDS: 0.9% Saline Lock 10 ML Syringe IV ×6 (04:24→17:13)
[2024-10-07 04:31] VITALS: BP 101/77; PULSE 89; RESP 18; TEMP 36.2; O2SAT 98
[2024-10-07] MEDS: Morphine 2 MG/ML Syringe IV ×2 (05:45→09:53)
--- NOTE | 2024-10-07 07:44 | PCM.HP.STD ---
HPI - General General Date of Admission: 10/06/24 Date of Service: 10/06/24 Chief Complaint: Bladder pain HPI Narrative LEILANI GRIDER, is a 69 M who presents to the hospital with severe bladder pain he has been getting treatments for bladder cancer with Mitomycin-C presented with frequency and urgency will admit the patient for control of pain probably start him on a steroid drip and antibiotics PFSH Medical History Loose, teeth Cancer Restless legs Back pain Hoarseness History of pain when walking History of edema Acute blood loss anemia Acute UTI Edema of right lower leg Anemia Wears glasses Alcohol use Arthritis Smoker Bladder mass Hearing loss, left Hearing loss, right Home Medications ?Medication ?Instructions ?Recorded ?Last Taken ?Type acetaminophen 500 mg tablet 1,000 mg PO Q6H PRN pain 08/05/24 Unknown History (Acetaminophen Extra Strength) ibuprofen 600 mg tablet 600 mg PO Q6H PRN fever or pain 08/15/24 Unknown Rx #20 tabs Allergy/AdvReac Type Severity Reaction Status Date / Time No Known Allergies Allergy Verified 08/05/24 11:01 Surgical History Hx of surgical procedure Hx of surgical amputation of finger Hx of hernia repair History of transurethral resection of bladder tumor (TURBT) Social History Smoking Status: Light Smoker (<10/day) Vital Signs Vital Signs Vital Signs: 10/06/24 16:28 10/06/24 19:24 10/06/24 20:34 Temperature 96.8 F L 98.4 F 98.6 F Temperature Source Temporal Temporal Pulse Rate 103 H 72 102 H Pulse Strength Respiratory Rate 20 H 18 16 Respiratory Effort Respiratory Depth Respiratory Pattern Blood Pressure 130/79 H 146/87 H 137/90 H Blood Pressure Mean 96 106 105 Blood Pressure Source Monitor Blood Pressure Position Supine Blood Pressure Location Left Arm Pulse Ox 96 99 100 Oxygen Delivery Method Room Air Room Air 10/06/24 21:23 10/06/24 22:45 10/07/24 00:19 Temperature 7.9 F L Temperature Source Oral Pulse Rate 88 Pulse Strength Normal (2+) Respiratory Rate 18 Respiratory Effort Normal Non-Labored Respiratory Depth Normal Respiratory Pattern Normal Blood Pressure 119/77 Blood Pressure Mean 91 Blood Pressure Source Monitor Blood Pressure Position Semi-Fowlers Blood Pressure Location Right Arm Pulse Ox 95 Oxygen Delivery Method Room Air Room Air 10/07/24 04:31 10/07/24 04:34 Temperature 97.1 F L Temperature Source Temporal Pulse Rate 89 Pulse Strength Respiratory Rate 18 Respiratory Effort Normal Non-Labored Respiratory Depth Normal Respiratory Pattern Normal Blood Pressure 101/77 Blood Pressure Mean 85 Blood Pressure Source Monitor Blood Pressure Position Standing Blood Pressure Location Right Arm Pulse Ox 98 Oxygen Delivery Method Room Air Room Air Weight Weight: 80 kg Body Mass Index (BMI) 28.4 Results Lab / Micro Data 10/06/24 17:15 10/06/24 17:15 Labs: Laboratory Results - last 24 hr 10/06/24 17:15: WBC 9.5, RBC 5.61, Hgb 14.6, Hct 47.1, MCV 84.0, MCH 26.0 L, MCHC 31.0 L, RDW Std Deviation 56.4 H, RDW Coeff of Malgorzata 19.0 H, Plt Count 326, MPV 9.3, Immature Gran % (Auto) 0.300, Neut % (Auto) 78.2 H, Lymph % (Auto) 8.9 L, [place] % (Auto) 7.9, Eos % (Auto) 3.9, Baso % (Auto) 0.8, Absolute Neuts (auto) 7.4, Absolute Lymphs (auto) 0.84, Nucleated RBC % 0, Sodium 140, Potassium 4.1, Chloride 111 H, Carbon Dioxide 24.0, Anion Gap 4 L, BUN 21 H, Creatinine 1.02, Estim Creat Clear Calc 68.49, Est GFR (MDRD) Af Amer 94, Est GFR (MDRD) Non-Af 77, BUN/Creatinine Ratio 20.6 H, Glucose 117 H, Calcium 9.3, Urine Color Red, Urine Clarity Turbid, Urine pH 6.0, Ur Specific [place] 1.025, Urine Protein 500 H, Urine Glucose (UA) Normal, Urine Ketones 5 H, Urine Occult Blood 250 H, Urine Nitrite Positive H, Urine Bilirubin Negative, Urine Urobilinogen Normal, Ur Leukocyte Esterase 100 H, Urine RBC > 100 SEEN, Urine WBC 10-25 SEEN, Ur Squamous Epith Cells 0 SEEN, Urine Bacteria 4+, Urine Mucus 0 SEEN
[2024-10-07 09:21] VITALS: BP 118/75; PULSE 78; RESP 16; TEMP 36.4; O2SAT 97
[2024-10-07] MEDS: MethylPREDNISolone 125 MG/2 ML Vial 80 MG IV ×3 (09:51→21:17)
[2024-10-07] MEDS: Phenazopyridine 95 MG Tablet 190 MG PO ×3 (09:51→21:16)
[2024-10-07] MEDS: Tolterodine Tartrate 2 MG CAP.SA PO (09:52)
[2024-10-07] MEDS: Ciprofloxacin 400 MG/200 ML BAG 200 MG IV ×2 (10:05→21:17)
--- NOTE | 2024-10-07 10:35 | CASEMGMT ---
RN CM Face to Face with patient for initial transition planning/care coordination assessment. RN CM introduced self and role at [facility]. Patient lying in bed, alert and oriented. Patient willing to participate in assessment and is able to answer all questions appropriately. Care providers, pharmacy, and demographics verified. Strata: 2 PCP: [facility] Specialists: Manan, urologist Preferred Pharmacy: [facility] Insurance: [employer] [facility] Prescription Benefit: yes Living Will/HPOA: none LNOK: Living Arrangements: Patient lives with in a 2 story home. Patient is independent and able to ambulate stairs. Transportation: self, DME/HHC: Patient has cane and walker at home. No previous HHC or SNF Patient wishes to discharge home, denies need for home health at this time. Patient states he has no further needs or concerns at this time. CM to follow for discharge planning needs that may arise. Disposition Plan: Patient to discharge home with family support and follow-up plans in place. Letty NEVAREZ, RN, CM
[2024-10-07] MEDS: DiphenhydrAMINE 25 MG Capsule PO ×2 (12:42→21:16)
[2024-10-07] MEDS: FLU VACCINE **HIGH DOSE** TV 24-25 180 MCG/0.5 ML SYRINGE IM (12:43)
[2024-10-07 15:04] VITALS: BP 112/81; PULSE 76; RESP 16; TEMP 36.7; O2SAT 95
--- NOTE | 2024-10-07 16:19 | CHAPLAIN ---
Type of Pastoral Visit ___ Initial Visit ___ Follow-up Visit ___ On-call Visit ___ General Patient Visit ___ Spiritual Assessment ___ Family Conference ___ Bereavement ___ Rapid Response ___ Code Blue ___ Other (describe below) Pastoral Care Referral From ___ Patient ___ Family ___ Nurse ___ Physician ___ Nonprofit Director ___ Pipe Line Maintenance Supervisor ___ Other (describe below) Sacrament/Intervention ___ Active listening ___ Anointing ___ Restoration ___ Bereavement ___ Communion ___ Tejal exploration ___ ___ Life review ___ Prayer ___ Reconciliation ___ Sacrament of Sick ___ Supportive presence ___ Wedding ___ Other (describe below) Pastoral Comments the patient was sound asleep
[2024-10-07 21:09] VITALS: BP 118/72; PULSE 76; RESP 16; TEMP 36.7; O2SAT 95
[2024-10-08 03:30] VITALS: BP 112/70; PULSE 70; RESP 16; TEMP 36.7; O2SAT 93
--- NOTE | 2024-10-08 07:30 | PCM.PN.GU ---
Subjective Subjective 69-year-old male with bladder cancer who was getting treated with Mitomycin-C. He had BCG therapy already and had recurrence immediately after BCG therapy with persistence of disease so he received Mitomycin-C he completed dose #5 and then presented to the hospital and severe pain which has been getting progressively worse he had been treated outpatiently with some Cipro. He was admitted for bladder pain the suspicion was perhaps painful bladder spasms from his chemotherapy treatments or perhaps urinary tract infection. Currently is on ciprofloxacin. Slater catheter is in place and he is feeling some relief but still painful. Will consult infectious disease for assistance in choosing appropriate antibiotic coverage to send him home with antibiotics. Probably will send him home with a week of Catheter decompression and then get the catheter out next week. Will keep in the hospital and to get recommendations. Objective Data Objective Data Vital Signs: Vital Signs Temp Pulse Resp BP Pulse Ox O2 Del Method 98.0 F 76 16 118/72 95 Room Air 10/07/24 21:10/07/24 21:10/07/24 21:10/07/24 21:10/07/24 21:10/07/24 22:00 Oxygen Delivery Method Room Air Weight: 80 kg Body Mass Index (BMI) 28.4 Intake & Output: Intake and Output for Last 24 Hours 10/06/24 10/07/24 10/08/24 23:59 23:59 23:59 Intake Total 250 / 250 1080 / 1080 Output Total 350 / 350 1000 / 1000 Balance -100 / -100 80 / 80 Lab / Micro Data 10/06/24 17:15 10/06/24 17:15 Micro: Microbiology 10/06/24 17:15 Interface Orders Urine Culture - Preliminary Culture exhibits no growth.
[2024-10-08 10:56] VITALS: BP 128/90; PULSE 78; RESP 16; TEMP 36.6; O2SAT 98
[2024-10-08] MEDS: Ciprofloxacin 400 MG/200 ML BAG 200 MG IV ×2 (10:59→21:12)
[2024-10-08] MEDS: 0.9% Saline Lock 10 ML Syringe IV ×2 (11:01→21:12)
[2024-10-08] MEDS: Acetaminophen 500 MG Tablet 1000 MG PO ×2 (11:02→17:36)
[2024-10-08] MEDS: Tolterodine Tartrate 2 MG CAP.SA PO (11:02)
[2024-10-08] MEDS: Phenazopyridine 95 MG Tablet 190 MG PO ×2 (15:23→21:11)
[2024-10-08 15:25] VITALS: BP 147/93; PULSE 71; RESP 18; TEMP 36.6; O2SAT 98
--- NOTE | 2024-10-08 15:27 | CON.PCM.ID_ITS ---
Assessment & Plan Assessment/Plan (1) Painful bladder spasm: PLAN: UA shows mild inflammation, ucx neg so far, may be reaction to Mitomycin. Sx much improved since admit. Continue empiric cipro for now, plan on 5 days total of abx if cx remains neg, can change to po. Will follow, thank you (2) Bladder cancer: HPI Consult Data Date of Consult: 10/08/24 HPI Narrative Reason for Consultation: uti HPI Narrative: LEILANI GRIDER, is a 69 M with bladder cancer, received BCG, now on mitomycin-C for about a month. Reports since starting mitomycin, ongoing pain, bladder spasms, not feeling well. Sx cont to worsen, poor appetite. Admitted here, started on cipro, given fluids, feeling better. Spasms resolved, has been able to sleep. No fever or chills. Full ROS performed and neg except as noted above. [facility] Medical History Loose, teeth Cancer Restless legs Back pain Hoarseness History of pain when walking History of edema Acute blood loss anemia Acute UTI Edema of right lower leg Anemia Wears glasses Alcohol use Arthritis Smoker Bladder mass Hearing loss, left Hearing loss, right Home Medications ?Medication ?Instructions ?Recorded ?Last Taken ?Type acetaminophen 500 mg tablet 1,000 mg PO Q6H PRN pain 08/05/24 Unknown History (Acetaminophen Extra Strength) ibuprofen 600 mg tablet 600 mg PO Q6H PRN fever or pain 08/15/24 Unknown Rx #20 tabs Allergy/AdvReac Type Severity Reaction Status Date / Time No Known Allergies Allergy Verified 08/05/24 11:01 Surgical History Hx of surgical procedure Hx of surgical amputation of finger Hx of hernia repair History of transurethral resection of bladder tumor (TURBT) Social History Smoking Status: Light Smoker (<10/day) Physical Exam Const alert, oriented x3 and no apparent distress General Appearance: cooperative HEENT normocephalic and head/scalp atraumatic Eyes PERRL and EOMs intact bilaterally Neck supple and No nodes Resp normal air movement and clear to auscultation bilaterally Cardio regular rate and regular rhythm GI soft to palpation, non-tender and non-distended Extremity General Extremity: Negative for edema Skin no rashes or lesions noted Neuro CN's II-XII intact bilaterally Lab / Micro Data Attestation: I reviewed the patient's lab results. 10/06/24 17:15 10/06/24 17:15
[2024-10-08 20:50] VITALS: BP 141/80; PULSE 89; RESP 16; TEMP 36.8; O2SAT 100
[2024-10-08] MEDS: DiphenhydrAMINE 25 MG Capsule PO (21:11)
[2024-10-09 02:30] VITALS: BP 147/83; PULSE 51; RESP 16; TEMP 36.6; O2SAT 97
[2024-10-09] MEDS: DiphenhydrAMINE 25 MG Capsule PO (05:17)
[2024-10-09] MEDS: Acetaminophen 500 MG Tablet 1000 MG PO (05:24)
[2024-10-09] MEDS: oxyCODONE 5 MG Tablet PO (05:25)
--- NOTE | 2024-10-09 07:20 | DS.PCM_ITS ---
Providers Date of Admission: 10/06/24 Date of Discharge: 10/09/24 Primary Care Physician: LINDA Sanchez Consultations 10/08/24 07:29 Consult: Infectious Disease Routine Consulting Provider: Dennis Little Reason for Consult: Complicated UTI EMERGENT Consult: No MD Notified: Yes Date Notified: 10/08/24 Time Notified: 07:29 Method of Notification: Text Reason For Visit: BLADDER PAIN, BLADDER CANCER Diagnosis Discharge Diagnosis (1) Painful bladder spasm: Status: Acute Code(s): R30.1 - Vesical tenesmus (2) Bladder cancer: Status: Acute Code(s): C67.9 - Malignant neoplasm of bladder, unspecified Medications at Discharge Home Medications acetaminophen 500 mg tablet (Acetaminophen Extra Strength) 1,000 mg PO Q6H PRN pain 08/05/24 ibuprofen 600 mg tablet 600 mg PO Q6H PRN fever or pain #20 tabs 08/15/24 Hospital Course Operations None Summary of Care Provided Minutes Spent on Discharge: 35 Hospital Course: Patient was admitted for severe bladder pain and bladder infection he will go home today with ciprofloxacin we will remove the catheter for voiding trial prior to discharge Physical Exam Const alert and oriented x3 General Appearance: cooperative HEENT normocephalic, head/scalp atraumatic, EAC's normal and TM's normal bilaterally Eyes PERRL and EOMs intact bilaterally Pupil: sluggish Neck no lymphadenopathy, supple and no JVD General: trachea midline Lymph Lymphatic: no lymphadenopathy noted, lymphedema and lymphadenopathy Resp normal respiratory effort, normal air movement and clear to auscultation bilaterally Cardio regular rate, regular rhythm and peripheral pulses 2+ throughout GI soft to palpation, non-tender and non-distended Extremity normal capillary refill and no clubbing, cyanosis or edema General Extremity: no tenderness to palpation of joints or extremities Skin no rashes or lesions noted General Skin Exam: turgor normal Lesions: no lesions Rashes: no rashes Neuro CN's II-XII intact bilaterally Speech: speech normal Motor Exam: strength 5/5 throughout; Negative for general weakness Psych thought process normal, cooperative and affect normal Appearance: appropriate Weight / BMI Weight Weight: 80 kg Body Mass Index (BMI) 28.4 ABG / Lab / Microbiology Data 10/06/24 17:15 10/06/24 17:15 Microbiology: Microbiology 10/06/24 17:15 Interface Orders Urine Culture - Preliminary Culture exhibits no growth. D/C Instructions Discharge Diet: No restrictions Discharge Activity: Return to Normal Activity Call your doctor if you observe: Fever of 101 or Higher DC O2, CPAP, BIPAP Needs Additional Home O2 Discharge instructions: No DC home with Oxygen: No Please Follow Up With: Freddie Hinkle MD When: keep appt. Meaningful Use Info Meaningful Use Meaningful Use Diagnoses (Choose all that apply): None applicable Ischemic Stroke Statin Dosing Therapy Reference: STATIN DOSE THERAPY REFERENCE: * Patients > 75 years receive moderate or high dose statin therapy. * Patients 75 years or YOUNGER should receive HIGH intensity statin dose unless contraindicated. You will be required to document reason for non-treatment if statin daily dose does not meet guidelines. HIGH DOSE STATIN THERAPY DAILY Atorvastatin > than or = to 40 mg Rosuvastatin > than or = to 20 mg Amlodipine + Atorvastatin > than or = to 2.5/40 mg Ezetimibe + Simvastatin 10/80 mg Simvastatin 80mg Discharge Plan Admission Admit Date/Time: 10/06/24 20:42 Attending Provider: Freddie Hinkle Primary Care Provider: Paulino Troy NP Consulting Providers: Dennis Little Discharge Orders/Prescriptions Prescriptions: No Action acetaminophen [Acetaminophen Extra Strength] 500 mg tablet 1,000 mg PO Q6H PRN (Reason: pain) ibuprofen 600 mg tablet 600 mg PO Q6H PRN (Reason: fever or pain) Qty: 20 0RF Referrals / Follow Up: Freddie Hinkle MD [Med Staff - Active Staff] - Paulino Troy NP, CLOSING MACHINE OPERATOR-C [Primary Care Provider] -
[2024-10-09 08:07] VITALS: BP 125/80; PULSE 60; RESP 18; TEMP 36.5; O2SAT 97
[2024-10-09] MEDS: Tolterodine Tartrate 2 MG CAP.SA PO (08:13)
--- NOTE | 2024-10-09 09:06 | CASEMGMT ---
Patient has order for discharge. RN CM in to discuss needs at discharge. Patient denies needs or help at discharge. Patient had no further questions or concerns.
== END 2024-10-09 13:14 | disposition home or self-care (01) | DRG 700 ==
LOC: ED 18:55 → PCU 19:30
PROVIDERS: Admitting Provider Urology; Emergency Provider Emergency Medicine; PCP Nurse Practitioner Primary Care; Visit Provider Urology
DX: N32.89 Other specified disorders of bladder (principal); C67.9 Malignant neoplasm of bladder, unspecified; F17.200 Nicotine dependence, unspecified, uncomplicated; G89.3 Neoplasm related pain (acute) (chronic); T78.40XA Allergy, unspecified, initial encounter; R31.9 Hematuria, unspecified; Z79.1 Long term (current) use of non-steroidal anti-inflammatories (NSAID); Z23 Encounter for immunization
CPT/HCPCS: 51702; 80048; 81001; 85025; 87086; 90662; 97802; 99285; A4216; J0744; J2405

== ENCOUNTER 2025-05-02 15:53 | Emergency (ER) | payer OTHER, SELFPAY ==
[2025-05-02 15:53] VITALS: BP 154/95; PULSE 94; RESP 18; TEMP 36.3; O2SAT 98
--- NOTE | 2025-05-02 16:16 | RAD_ITS ---
PROCEDURE: SHOULDER MIN 2 VIEWS 05/02/2025 REASON FOR EXAM: INJURY/PAIN TECHNIQUE: SHOULDER MIN 2 VIEWS COMPARISON: None. FINDINGS: Bones: No acute fracture or aggressive osseous lesion. Joints: Normal alignment. Moderate degenerative changes of the glenohumeral and acromioclavicular joints. Soft tissues: Soft tissues are unremarkable. Other: The visualized right lung is unremarkable. RAD/Shoulder min 2 Views IMPRESSION: DEGENERATIVE OSTEOARTHROSIS. NO ACUTE FINDINGS. Reading Location: [id number]
--- NOTE | 2025-05-02 16:19 | EX.ED.DYSGE1 ---
HPI History of Present Illness Chief Complaint: Other, Pain/Inj Detail of Chief Complaint: Pain right shoulder, bruising and pain right arm and pain right groin Informant: patient and spouse/S.O. Onset/Context/Timing Onset: Days Context: Sudden Onset Timing: Continuous and Waxes and wanes Quality: Pain right shoulder with click, right arm with bruising and right groin Current Severity: Mild Maximum Severity: Severe Worsened by: The right groin pain is severe with movement Relieved by: Nothing Associated Symptoms Associated Symptoms: Denies paresthesia, anesthesia or motor weakness. 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 He is on no antithrombotic or anticoagulant he complains of pain in his right shoulder. Gets a clicking occasionally with movement. He has no history of direct trauma to his knowledge or recollection he denies paresthesia, anesthesia or motor weakness upper extremity or lower extremity on the right. He denies symptoms of claudication right lower extremity. He denies fever, chills night sweats. He has no known history of rheumatoid arthritis or autoimmune. Patient apparently does move objects with his right lower extremity. He may kick something out of the way as well. There is no history of VTE. He has no risk factors for VTE. He has no cardiopulmonary symptoms. Patient has no contraindication to NSAIDs i.e. hypertension, diabetes, renal disease or peptic ulcer disease. Prior similar symptoms: No Recent Illness/Hospitalization: No [facility] Medical History Loose, teeth Cancer Restless legs Back pain Hoarseness History of pain when walking History of edema Acute blood loss anemia Acute UTI Edema of right lower leg Anemia Wears glasses Alcohol use Arthritis Smoker Bladder mass Hearing loss, left Hearing loss, right Home Medications ?Medication ?Instructions ?Recorded ?Last Taken ?Type acetaminophen 500 mg tablet 1,000 mg PO Q6H PRN pain 08/05/24 Unknown History (Acetaminophen Extra Strength) ibuprofen 600 mg tablet 600 mg PO Q6H PRN fever or pain 08/15/24 Unknown Rx #20 tabs ciprofloxacin HCl 500 mg tablet 500 mg PO BID #10 tabs 10/09/24 Unknown Rx (Cipro) phenazopyridine 200 mg tablet 200 mg PO TID 5 days #15 tabs 10/09/24 Unknown Rx (Pyridium) hydrocodone-acetaminophen 5-325mg 1 tab PO Q6H PRN PRN Pain 3 days 05/02/25 Unknown Rx 5mg-325mg #10 TABLETS naproxen 500 mg tablet 500 mg PO BID #10 tabs 05/02/25 Unknown Rx Allergy/AdvReac Type Severity Reaction Status Date / Time No Known Allergies Allergy Verified 05/02/25 15:55 Surgical History Hx of surgical procedure Hx of surgical amputation of finger Hx of hernia repair History of transurethral resection of bladder tumor (TURBT) Social History (Updated 05/02/25 @ 16:[address] Victoriano Boykin MD) household members: spouse Smoking Status: Light Smoker (<10/day) substance use type: does not use ROS ROS ED Constitutional Constitutional ED: Denies chills, fever(s), subjective, sweats or weight loss Eyes Eyes: Denies blurry vision or change in vision ENT ENT ED: Denies ear pain, rhinorrhea or sore throat Cardiovascular Cardiovascular: Denies chest pain or palpitations Respiratory/Chest Respiratory/Chest: Denies cough, dyspnea or dyspnea on exertion Gastrointestinal Gastrointestinal: Denies abdominal pain, nausea or vomiting Genitourinary Genitourinary ED: Denies dysuria, hematuria or urinary frequency Musculoskeletal Musculoskeletal: Reports other Details: HPI narrative ; Denies arthralgias or myalgias Integumentary Reports other Details: Bruising right arm and swelling ; Denies Abrasions or rash Neurologic Neurologic: Denies paresthesias or weakness Hematologic/Lymphatic Hematologic/Lymphatic: Reports systems reviewed and no addt'l complaints, except as documented EXAM Physical Exam Const Vital Signs: 05/02/25 15:53 05/02/25 16:11 Temperature 97.3 F L Temperature Source Oral Pulse Rate 94 Respiratory Rate 18 Respiratory Effort Normal Non-Labored Blood Pressure 154/95 H Blood Pressure Mean 114 Pulse Ox 98 Positive well nourished and well developed Constitutional Narrative: Blood pressure is elevated 154/95. Patient is in obvious discomfort when he attempts to movement complains of pain in his right groin area. General Appearance ED: well developed; Negative for cyanotic, diaphoretic or pallor HEENT Reports moist mucous membranes HEENT Narrative: Head is atraumatic and normocephalic. Ears normal. Nares patent. Posterior pharynx is unremarkable. Patient has multiple missing teeth. Eyes PERRL and EOMs intact bilaterally General Eye ED: Negative for pale conjunctiva or scleral icterus Neck no lymphadenopathy and supple Chest Wall inspection of chest normal and palpation of chest normal Resp normal respiratory effort and clear to auscultation bilaterally Cardio regular rate and regular rhythm GI normal to inspection, nondistended, normoactive bowel sounds, non-tender, non-distended and no masses; Negative for hepatosplenomegaly Narrative: Testes are send bilaterally. No testicular epididymal tenderness. No tenderness of the vas deferens. No evidence of hernia. He has surgical scar on the right due to prior surgery x 2. There is no angela lymphadenopathy. He has tenderness insertion of the quadricep for Naveen muscle tendon. Having him AB duct against resistance causes no discomfort he has significant pain with abduction against resistance. Tyler Compa 4 test causes minimal discomfort. His discomfort is in the right groin. There is no neurovasc Otomize of the right lower extremity. Examination of the right upper extremity reveals tenderness over the proximal humerus. Passive range of motion causes him discomfort and click was appreciated. He had a negative drop test. He did not have any pain with abduction past 90 degrees. The right arm is swollen compared to the left. There is bruising noted. Axillary, median, radial and ulnar function intact. Radial pulses 2+. Back/Spine no CVA tenderness Extremity Negative for normal to inspection Extremity Narrative: Described under the portion. Neuro oriented x3, CN's II-XII intact bilaterally and no sensory deficits noted Sensorium / Orientation: alert Motor Exam: strength 5/5 throughout Psych mental status grossly normal Skin no rashes or lesions noted and no wounds General Skin Exam: elasticity normal; Negative for jaundice or pallor MDM MDM MDM Narrative Medical decision making narrative: X-ray of the shoulder was obtained to assess for osteoarthritis versus floating free body versus evidence of prior injury. X-ray of the pelvis was obtained to determine if there is a pull off fracture associated with this quadrant for Naveen muscle injury. He was medicated with IV ketorolac, morphine and Zofran. Radiography Chest X-Ray - ED: 1 View (Single view pelvis view reveals no avulsion fracture at the insertion site of the quadricep for Naveen muscle. This was independent reviewed interpreted by me) and Read by ED Physician (4 view x-ray of the right shoulder reveals some degenerative changes. There is no fracture, subluxation dislocation.) Discharge Plan Triage Chief Complaint: Other, Pain/Inj ED Provider: Victoriano Boykin Dx/Rx/DC Orders Clinical Impression: Osteoarthritis of right shoulder region, Bladder cancer, Injury of right quadriceps femoris muscle, Contusion of right arm, Elevated blood-pressure reading without diagnosis of hypertension Instructions: ED Hypertension, To Be Confirmed, ED Osteoarthritis, ED Muscle Strain, Extremity Prescriptions: New hydrocodone-acetaminophen 5-325 mg tablet 1 tab PO Q6H PRN PRN (Reason: Pain) 3 Days Qty: 10 0RF naproxen 500 mg tablet 500 mg PO BID Qty: 10 0RF No Action acetaminophen [Acetaminophen Extra Strength] 500 mg tablet 1,000 mg PO Q6H PRN (Reason: pain) ibuprofen 600 mg tablet 600 mg PO Q6H PRN (Reason: fever or pain) Qty: 20 0RF ciprofloxacin HCl [Cipro] 500 mg tablet 500 mg PO BID Qty: 10 0RF phenazopyridine [Pyridium] 200 mg tablet 200 mg PO TID 5 Days Qty: 15 0RF Primary Care Provider: Paulino Troy NP Referrals: Paulino Troy YARDAGE CONTROL OPERATOR, YARDAGE CONTROL OPERATOR-C [Primary Care Provider] - 1-2 Weeks Activity Restrictions/Additional Instructions: 1. Avoid activity that causes you pain. 2. Apply ice to your right arm and right groin 6-8 times a day 3. Take pain medicine as needed for pain. 4. Your blood pressure is elevated. Recommend you having it rechecked by your provider in 1 to 2 weeks Print Language: Marshallese Disposition Disposition: Home, Self Care
[2025-05-02 16:27] VITALS: BMI 27.9
[2025-05-02] MEDS: Ondansetron 4 MG/2 ML Vial IV (16:28)
[2025-05-02] MEDS: Ketorolac 30 MG/ML Syringe 15 MG IV (16:29)
[2025-05-02] MEDS: Morphine 4 MG/ML Syringe IV (16:30)
--- OUTSIDE RECORDS SUMMARY | 2025-05-02 16:40 | XMS RPT_ITS | CCD ---
Author Organization [facility] CliniSypr Care Team Providers Care Trouble Lineman Name Role Phone DANNY NAIK, CELINA Primary Care Physician [phone] Danny [employer] ARCHITECT, [employer]CH[employer]ECT-C Celina Primary Care Provider [phone] Dr. Dennis Delatorre Attending Provider [phone] Dr. Jaron Nuñez Emergency Provider Dr. Freddie Acevedo Other Provider [phone] Dr. Ervin Anderson Admit Provider Dr. Ervin Anderson Attending Provider [phone] Dr. Ervin Anderson Other Provider Dr. Ronen Nicole Attending Provider [phone] Dr. Freddie Acevedo Referring Provider [phone] Dr. Breann Graham Attending Provider Dr. Breann Graham Other Provider BALTES INSPECTOR [employer], CELINA Primary Care UnavailALEM Fernández MD Attending Unavailable BALTES INSPECTOR [employer], CELINA Primary Care Unavailabl e BALTES INSPECTOR [employer], CELINA Attending Unavailabl e BALTES INSPECTOR [employer], CELINA Primary Care Unavailabl e BALTES INSPECTOR [employer], CELINA Attending Unavailabl e BAL[employer] INSPECTOR [employer], CELINA Primary Care Unavailabl DR TROY Alfaro DO Attending Unavailable Freddie Acevedo Consulting Unavailable Breann Graahm Attending Unavailable Ervin Anderson Admitting Unavailable Danny [employer]CH[employer], Celina Primary Care Unavailable Ervin Anderson Consulting Unavailable Breann Graham Consulting Unavailable Freddie Acevedo Consulting Unavailable Danny [employer] ARCH[employer]ECT, Celina Primary Care Unavailable Ervin Anderson Admitting Unavailable Ervin Anderson Attending Unavailable Ervin Anderson Consulting Unavailable Breann Graham Attending Unavailable Breann Graham Consulting Unavailable Freddie Acevedo Referring Unavailable Freddie Acevedo Attending Unavailable Cosmetes [employer] ARCH[employer]ECT, [place] Primary Care Unavailable MananFreddie Referring Unavailable MananFreddie Attending Unavailable Baltes [employer] ARCHITECT, [place] Primary Care Unavailable MananFreddie Referring Unavailable MananFreddie Attending Unavailable Baltes [employer] ARCHITECT, [place] Primary Care Unavailable Ervin Anderson Admitting Unavailable Freddie Acevedo Consulting Unavailable Breann Graham Attending Unavailable Cosmetes [employer] ARCHITECT, [place] Primary Care Unavailable Ervin Anderson Consulting Unavailable Dennis Little Unavailable Freddie Acevedo Attending Unavailable MananFreddie Admitting Unavailable Baltes [employer] ARCHITECT, [facility] Care Unavailable Ronen Nicole Attending Unavailable MananFreddie Referring Unavailable Baltes [employer] ARCHITECT, [facility] Care Unavailable Dennis Delatorre Attending Unavailable Danny [employer] ARCHITECT, [facility] Care Unavailable Susana Durham Referring Unavailable Medications Current Medications Medication Drug Class(es) Dates Sig (Normalized) Sig (Original) acetaminophen 500 mg oral tablet (2 sources) Start: 06-28-2020 Tylenol Extra Strength 500 mg oral tablet Dose : 1,000 mg = 2 tab(s), Oral, q4h, PRN as needed for pain, # 120 tab(s), 0 Refill(s) Start Date: 06/28/20 Status: Ordered acetaminophen 325 mg / oxyCODONE hydrochloride 5 mg oral tablet (2 sources) Opioid Agonist Start: 05-26-2021 take 1 tablet by mouth every six hours Oxycodone-Acetam inophen Active 1 TABLET PO EVERY 6 HOURS 14 7 May 26, 2021 5:25pm aspirin 81 mg chewable tablet (4 sources) Platelet Aggregation Inhibitor, Nonsteroidal Anti-inflammatory Drug Start: 05-26-2021 take 81 mg by mouth once daily Aspirin Active 81 MG PO DAILY May 26, 2021 3:15pm Start: 04-28-2021 aspirin 81 mg oral delayed release tablet Dose : 81 mg = 1 tab(s), Oral, qDay, 0 Refill(s) Start Date: 04/28/21 Status: Ordered atorvastatin 10 mg oral tablet (4 sources) HMG-CoA Reductase Inhibitor Start: 05-26-2021 atorvastatin 10 mg oral tablet Dose : 10 mg = 1 tab(s), Oral, qDay, # 90 tab(s), 3 Refill(s), Pharmacy: [facility]/pharmacy #[id number], Hyperlipidemia, 166.37, cm, 04/28/21 8:10:00 EDT, Height, kg, 04/28/21 8:10:00 EDT, Dosing Weight Start Date: 09/01/21 Status: Ordered cefdinir 300 mg oral capsule (1 source) Cephalosporin Antibacterial Start: 11-29-2023 take 300 mg by mouth twice daily Cefdinir Active 300 MG PO TWICE A DAY November 29, 2023 12:00am cephalexin 500 mg oral capsule (1 source) Cephalosporin Antibacterial Start: 10-29-2023 End: 11-08-2023 cephalexin 500 mg oral capsule Dose : 500 mg = 1 cap(s), Oral, QID, Take with a probiotic, X 10 day(s), # 40 cap(s), 0 Refill(s), 11/08/23 5:53:00 PM EST, 73.3 Start Date: 10/29/23 Stop Date: 11/08/23 Status: Ordered ciprofloxacin 500 mg oral tablet (2 sources) Quinolone Antimicrobial Start: 05-26-2021 take 1 tablet by mouth twice daily Ciprofloxacin Hcl (Cipro) 500 mg tablet Active 500 MG PO TWICE A DAY May 26, 2021 5:25pm sulfamethoxazole 800 mg / trimethoprim 160 mg oral tablet (1 source) Dihydrofolate Reductase Inhibitor Antibacterial, Sulfonamide Antimicrobial Start: 11-29-2023 take 1 tablet by mouth twice daily at mealtime Sulfamethoxazole-Tr imethoprim Active 1 TABLET PO TWICE DAILY WITH MEALS November 29, 2023 12:00am tamsulosin hydrochloride 0.4 mg oral capsule (1 source) alpha-Adrenergic Fritz Start: 11-26-2023 take 0.4 mg by mouth at bedtime Tamsulosin Active 0.4 MG PO AT BEDTIME November 26, 2023 12:00am Problems Active Problems Problem Classification Problem Date Documented Date Episodic/Chronic Acute and chronic tonsillitis (2 sources) Exudate on tonsils 04-14-2020 Chronic Cancer of bladder (3 sources) Malignant neoplasm of bladder, unspecified; Translations: [Malignant neoplasm of posterior wall of bladder] Onset: Chronic Cancer; other and unspecified primary (2 sources) H/O: malignant neoplasm 03-30-2022 Episodic Chronic obstructive pulmonary disease and bronchiectasis (2 sources) Pulmonary emphysema 05-05-2020 Chronic Comment on above: Mild on screening amaury ng CT 04/24, patient asymptomatic Coronary atherosclerosis and other heart disease (2 sources) Calcification of coronary artery 05-04-2020 Chronic Deficiency and other anemia (1 source) Anemia; Translations: [Anemia, unspecified] 11-26-2023 Episodic Disorders of lipid metabolism (2 sources) Hyperlipidemia 04-19-2020 Chronic Comment on above: 04/24 ascvd risk 8.1% Genitourinary symptoms and ill-defined conditions (7 sources) Parrish hematuria; Translations: [Gross hematuria] Onset: 05-26-2021 Episodic Lymphadenitis (2 sources) Disorder of intra-abdominal lymph nodes 05-04-2020 Episodic Comment on above: Benign-appearing on low-dose CT 04/24 Other aftercare (2 sources) Long-term current use of anticoagulant 01-23-2022 Episodic Other connective tissue disease (2 sources) Other specified soft tissue disorders; Translations: [Other specified soft tissue disorders] Onset: Episodic Other diseases of bladder and urethra (3 sources) Mass of urinary bladder; Translations: [Other specified disorders of bladder] 05-26-2021 Chronic Other diseases of bladder and urethra (4 sources) Other specified disorders of bladder; Translations: [Other specified disorders of bladder] Onset: 11-29-2023 Chronic Other infections; including parasitic (2 sources) History of herpes zoster 04-14-2020 Episodi c Other liver diseases (2 sources) Elevated liver enzymes level 04-19-2020 Epi sodic Other lower respiratory disease (2 sources) Wheezing 04-14-2020 Episodic Other nutritional; endocrine; and metabolic disorders (2 sources) 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 Un likely to have clinical significance per pathology report Other screening for suspected conditions (not mental disorders or infectious disease) (4 sources) Encounter for screening for lipoid disorders; Translations: [Encounter for screening for malignant neoplasm of prostate] Onset: Episodic Peripheral and visceral atherosclerosis (2 sources) Atherosclerosis of aorta 05-04-2020 Chronic Phlebitis; thrombophlebitis and thromboembolism (2 sources) Portal vein thrombosis 01-23-2022 Episodic Residual codes; unclassified (1 source) Edema of right lower leg; Translations: [Localized edema] 11-26-2023 Episodic Residual codes; unclassified (2 sources) Tobacco use; Translations: [Tobacco use] Onset: 024 Episodic Unclassified (2 sources) Long-term current use of aspirin 01-23-2022 Unclassified (8 sources) Patient encounter status 04-14-2020 Past or Other Problems Problem Classification Problem Date Documented Date Episodic/Chronic Acute posthemorrhagic anemia (6 sources) Acute posthemorrhagic anemia; Translations: [Acute posthemorrhagic anemia] Onset: 11-29-2023 11-26-2023 Episodic Deficiency and other anemia (2 sources) Anemia, unspecified; Translations: [Anemia, unspecified] Onset: 11-29-2023 11-29-2023 Episodic Residual codes; unclassified (2 sources) Localized edema; Translations: [Edema] Onset: 11-29-2023 11-29-2023 Episodic Urinary tract infections (3 sources) Acute urinary tract infection; Translations: [Urinary tract infection, site not specified] Onset: 11-29-2023 11-26-2023 Episodic Results Test Name Value Interpretation Reference Range Facility Consultation - Infectious Dx on 10-08-2024 Consultation - Infectious Dx [facility] Medical Records Department [address] [place] [id number] Consultation - Infectious Dx 10/08/24 1527 MR#: [id number] Acct: [id number] Name: LEILANI GRIDER Agnes Rep #: [id number] : 1955 69 From: Dennis Little MD PCP: Celina Delgado, [employer] ARCHITECT-C Status:ADM IN Location: [place] [address] Assessment Plan Assessment/Plan (1) Painful bladder spasm: PLAN: UA shows mild inflammation, ucx neg so far, may be reaction to Mitomycin. Sx much improved since admit. Continue empiric cipro for now, plan on 5 days total of abx if cx remains neg, can change to po. Will follow, thank you (2) Bladder cancer: HPI Consult Data Date of Consult: 10/08/24 HPI Narrative Reason for Consultation: uti HPI Narrative: LEILANI GRIDER, is a 69 M with bladder cancer, received BCG, now on mitomycin-C for about a month. Reports since starting mitomycin, ongoing pain, bladder spasms, not feeling well. Sx cont to worsen, poor appetite. Admitted here, started on cipro, given fluids, feeling better. Spasms resolved, has been able to sleep. No fever or chills. Full ROS performed and neg except as noted above. PFSH Medical History Loose, teeth Cancer Restless legs Back pain Hoarseness History of pain when walking History of edema Acute blood loss anemia Acute UTI Edema of right lower leg Anemia Wears glasses Alcohol use Arthritis Smoker Bladder mass Hearing loss, left Hearing loss, right Home Medications ???Medication ???Instructions ???Recorded ???Last Taken ???Type acetaminophen 500 mg tablet 1,000 mg PO Q6H PRN pain 08/05/24 Unknown History (Acetaminophen Extra Strength) ibuprofen 600 mg tablet 600 mg PO Q6H PRN fever or pain 08/15/24 Unknown Rx #20 tabs Allergy/AdvReac Type Severity Reaction Status Date / Time No Known Allergies Allergy Verified 08/05/24 11:01 Surgical History Hx of surgical procedure Hx of surgical amputation of finger Hx of hernia repair History of transurethral resection of bladder tumor (TURBT) Social History Smoking Status: Light Smoker (<10/day) Physical Exam Const alert, oriented x3 and no apparent distress General Appearance: cooperative HEENT normocephalic and head/scalp atraumatic Eyes PERRL and EOMs intact bilaterally Neck supple and No nodes Resp normal air movement and clear to auscultation bilaterally Cardio regular rate and regular rhythm GI soft to palpation, non-tender and non-distended Extremity General Extremity: Negative for edema Skin no rashes or lesions noted Neuro CN's II-XII intact bilaterally Lab / Micro Data Attestation: I reviewed the patient's lab results. 10/06/24 17:15 10/06/24 17:15 10/08/24 1533 Cosigner Signature (if applicable): CC: [employer] ARCHITECTDeann Delgado Signed Normal [facility] Urine Cultureon 10-07-2024 URC Culture exhibits no growth. Normal [facility] Comment on above: Performed By: #### L 500.2500, L100.0100 #### [facility] [address] [place], [address] Basic Metabolic Profile (BMP )on 10-06-2024 BUN/CRE 20.6 RATIO High 10-20 [facility] Comment on above: Performed By: #### L 100.0100, L500.2500 #### [facility] [address] [place], [address] CA,Total 9.3 mg/dL Normal 8.5-10.1 [facility] Comment on above: Performed By: #### L 100.0100, L500.2500 #### [facility] [address] [place], [address] Chloride [Moles/Vol] 111 mmol/L High 98-107 [facility] Comment on above: Performed By: #### L 100.0100, L500.2500 #### [facility] [address] [place], [address] CO2 [Moles/Vol] 24.0 mmol/L Normal 21.0-32.0 [facility] Comment on above: Performed By: #### L 100.0100, L500.2500 #### [facility] [address] [place], [address] Creatinine [Mass/Vol] 1.02 mg/dL Normal 0.70-1.30 [facility] Comment on above: Result Comment: The validity of the calculated GFR GFRAA in patients over 70 years has not been determined. Clinical correlation is essential. Performed By: #### L 100.0100, L500.2500 #### [facility] [address] [place], [address] ECRCL 68.49 ml/min Normal [facility] Comment on above: Performed By: #### L 100.0100, L500.2500 #### [facility] [address] [place], [address] EST GFR - AA 94 mL/min Normal >60 [facility] Comment on above: Result Comment: Afri can Indian GFR Calc Performed By: #### L 100.0100, L500.2500 #### [facility] [address] [place], [address] GAP 4 Low 5-15 [facility] Comment on above: Performed By: #### L 100.0100, L500.2500 #### [facility] [address] [place], [address] GFR/1.73 sq M.predicted among non-blacks MDRD (S/P/Bld) [Vol rate/Area] 77 mL/min/{1.73_m2} Normal >60 [facility] Comment on above: Result Comment: Non- GFR Calc Performed By: #### L 100.0100, L500.2500 #### [facility] [address] [place], [address] Glucose [Mass/Vol] 117 mg/dL High 74-106 [facility] Comment on above: Result Comment: Fast ing Glucose result from 100 to 125 mg/dL suggests IMPAIRED HOMEOSTASIS per A.D.A. criteria. Performed By: #### L 100.0100, L500.2500 #### [facility] [address] [place], [address] Potassium [Moles/Vol] 4.1 mmol/L Normal 3.5-5.1 [facility] Comment on above: Performed By: #### L 100.0100, L500.2500 #### [facility] [address] [place], [address] Sodium [Moles/Vol] 140 mmol/L Normal 136-145 [facility] Comment on above: Performed By: #### L 100.0100, L500.2500 #### [facility] [address] [place], [address] Urea nitrogen [Mass/Vol] 21 mg/dL High 7-18 [facility] Comment on above: Performed By: #### L 100.0100, L500.2500 #### [facility] [address] [place], [address] CBC W/Diff, Automatedon 12-0 2-2023 Absolute Lymph 0.84 X10 3/uL Normal 0.83-4.51 [facility] Comment on above: Performed By: #### L 100.0100, L500.2500 #### [facility] [address] [place], [address] Absolute Neut 7.4 X10 3/uL Normal 2.0-7.7 [facility] Comment on above: Performed By: #### L 100.0100, L500.2500 #### [facility] [address] [place], [address] Basophils/100 WBC (Bld) 0.8 % Normal 0-1 [facility] Comment on above: Performed By: #### L 100.0100, L500.2500 #### [facility] [address] [place], [address] Eosinophils/100 WBC (Bld) 3.9 % Normal 0-5 [facility] Comment on above: Performed By: #### L 100.0100, L500.2500 #### [facility] [address] [place], [address] Erythrocyte distribution width (RBC) [Ratio] 19.0 % High 11.6-14.6 [facility] Comment on above: Performed By: #### L 100.0100, L500.2500 #### [facility] [address] [place], [address] Hematocrit (Bld) [Volume fraction] 47.1 % Normal 40-54 [facility] Comment on above: Performed By: #### L 100.0100, L500.2500 #### [facility] [address] [place], [address] Hemoglobin (Bld) [Mass/Vol] 14.6 g/dL Normal 13.0-16.5 [facility] Comment on above: Performed By: #### L 100.0100, L500.2500 #### [facility] [address] [place], [address] IG% 0.300 Normal 0.0-0.9 [facility] Comment on above: Result Comment: IG% - Immature Granulocytes (promyelocytes, myelocytes and metamyelocytes) > 1% indicates that a LEFT SHIFT is Present. Performed By: #### L 100.0100, L500.2500 #### [facility] [address] [place], [address] Lymphocytes/100 WBC (Bld) 8.9 % Low 19-41 [facility] Comment on above: Performed By: #### L 100.0100, L500.2500 #### [facility] [address] [place], [address] MCH (RBC) [Entitic mass] 26.0 pg Low 27.0-32.0 [facility] Comment on above: Performed By: #### L 100.0100, L500.2500 #### [facility] [address] [place], [address] MCHC (RBC) [Mass/Vol] 31.0 g/dL Low 32-36 [facility] Comment on above: Performed By: #### L 100.0100, L500.2500 #### [facility] [address] [place], [address] MCV (RBC) [Entitic vol] 84.0 fL Normal 80-94 [facility] Comment on above: Performed By: #### L 100.0100, L500.2500 #### [facility] [address] [place], [address] Monocytes/100 WBC (Bld) 7.9 % Normal 0-10 [facility] Comment on above: Performed By: #### L 100.0100, L500.2500 #### [facility] [address] [place], [address] Neutrophils/100 WBC (Bld) 78.2 % High 47-70 [facility] Comment on above: Performed By: #### L 100.0100, L500.2500 #### [facility] [address] [place], [address] Nucleated RBC (Bld) [#/Vol] 0 10*3/uL Normal 0-5 [facility] Comment on above: Performed By: #### L 100.0100, L500.2500 #### [facility] [address] [place], [address] Platelet mean volume (Bld) [Entitic vol] 9.3 fL Normal 6.2-12.0 [facility] Comment on above: Performed By: #### L 100.0100, L500.2500 #### [facility] [address] [place], [address] Platelets (Bld) [#/Vol] 326 10*3/uL Normal 150-450 [facility] Comment on above: Performed By: #### L 100.0100, L500.2500 #### [facility] [address] [place], [address] RBC (Bld) [#/Vol] 5.61 10*6/uL Normal 4.6-6.2 [facility] Comment on above: Performed By: #### L 100.0100, L500.2500 #### [facility] [address] [place], [address] RDW SD 56.4 fl High 35.1-43.9 [facility] Comment on above: Performed By: #### L 100.0100, L500.2500 #### [facility] [address] [place], [address] WBC (Bld) [#/Vol] 9.5 10*3/uL Normal 4.4-11.0 [facility] Comment on above: Performed By: #### L 100.0100, L500.2500 #### [facility] [address] [place], [address] Emergency Department Summary on 10-06-2024 Emergency Department Summary [facility] Medical Records Department [address] [place] [address] Emergency Department Summary 10/06/24 MR#: [id number] Acct: [id number] Name: LEILANI GRIDER Rep #: [id number] : 1955 69 From: Vahe Mullen MD PCP: LINDA Sanchez Status:ADM IN Location: [address] History of Present Illness Chief Complaint: Complaint Informant: patient Narrative Narrative: Patient had his fifth round of intravesicular chemotherapy today for bladder cancer. He has been having terrible bladder spasms with this and his urologist prescribed him a medication to take for that, he took it for the first time today after his therapy session, and he states he broke out in hives that are very itchy, his penis is swollen and itchy, and painful when he started peeing blood today. This is the first time in a long time he has urinated blood, this happened in the beginning when he was diagnosed. Now he has symptoms of urinary retention. [facility] Medical History Loose, teeth Cancer Restless legs Back pain Hoarseness History of pain when walking History of edema Acute blood loss anemia Acute UTI Edema of right lower leg Anemia Wears glasses Alcohol use Arthritis Smoker Bladder mass Hearing loss, left Hearing loss, right Home Medications ???Medication ???Instructions ???Recorded ???Last Taken ???Type acetaminophen 500 mg tablet 1,000 mg PO Q6H PRN pain 08/05/24 Unknown History (Acetaminophen Extra Strength) ibuprofen 600 mg tablet 600 mg PO Q6H PRN fever or pain 08/15/24 Unknown Rx #20 tabs Allergy/AdvReac Type Severity Reaction Status Date / Time No Known Allergies Allergy Verified 08/05/24 11:01 Surgical History Hx of surgical procedure Hx of surgical amputation of finger Hx of hernia repair History of transurethral resection of bladder tumor (TURBT) Social History Smoking Status: Light Smoker (<10/day) ROS ROS ED Constitutional Constitutional ED: Denies chills or fever(s) Eyes Eyes: Denies change in vision or diplopia ENT ENT ED: Denies rhinorrhea or sore throat Cardiovascular Cardiovascular: Denies chest pain or palpitations Respiratory/Chest Respiratory/Chest: Denies cough or dyspnea Gastrointestinal Gastrointestinal: Denies abdominal pain, diarrhea, nausea or vomiting Genitourinary Genitourinary ED: Reports as per HPI, change in urinary stream, difficulty urinating, hematuria and other Details: bladder pain ; Denies dysuria Musculoskeletal Musculoskeletal: Denies back pain or neck pain Integumentary Denies abscess or rash Neurologic Neurologic: Denies headache(s), paresthesias or weakness EXAM Physical Exam Const Vital Signs: 10/06/24 16:28 Temperature 96.8 F L Temperature Source Temporal Pulse Rate 103 H Respiratory Rate 20 H Blood Pressure 130/79 H Blood Pressure Mean 96 Pulse Ox 96 Oxygen Delivery Method Room Air Positive well nourished and well developed Constitutional Narrative: Standing, uncomfortable no distress General Appearance ED: well developed and NAD HEENT Reports moist mucous membranes normocephalic and atraumatic Eyes PERRL and EOMs intact bilaterally Neck full ROM and supple Resp normal respiratory effort and clear to auscultation bilaterally Cardio regular rate, regular rhythm and no murmurs GI non-tender and non-distended Auscultation: normoactive bowel sounds Palpation: soft no CVA tenderness Narrative: Penile shaft appears somewhat edematous, flaccid, the glans is normal circumcised. Small metal blood at the meatus no active bleeding. Spots of blood on the underwear that he has on. Back/Spine no CVA tenderness General Back: other FROM Extremity normal to inspection General Extremety ED: Negative for edema, pulses abnormal or tenderness General Extremity: Negative for edema or pulses abnormal Neuro oriented x3, CN's II-XII intact bilaterally and no sensory deficits noted Sensorium / Orientation: awake and alert Motor Exam: strength 5/5 throughout Psych Mood Affect: anxious Skin no wounds Rashes: rashes noted Urticaria scattered on arms and legs and trunk MDM MDM MDM Narrative Medical decision making narrative: Patient was given morphine, prophylactic Zofran, and Uro-Jet before placing urinary catheter. There was gross hematuria and a few clots, this cleared with irrigation and we were able to remove the clots. He only had about 50 cc of urine come out with catheter insertion. He does still have active gross hematuria, but it is mild/light. His urine was sent for urinalysis and culture. Chemistries and blood (more content not included)... Normal [facility] Urinalysis, Completeon 10-06 WBC 10-25 SEEN Normal 0-5 [facility] Comment on above: Order Comment: COLOR OF URINE MAY AFFECT DIPSTICK RESULTS. EVP OPERATIONS TO SPECIFY Performed By: #### L 400.0001 #### [facility] [address] [place], [address] BACTERIA 4+ /hpf Normal None Seen [facility] Comment on above: Order Comment: COLOR OF URINE MAY AFFECT DIPSTICK RESULTS. EVP OPERATIONS TO SPECIFY Performed By: #### L 400.0001 #### [facility] [address] [place], [address] RBC > 100 SEEN Normal 0-5 [facility] Comment on above: Order Comment: COLOR OF URINE MAY AFFECT DIPSTICK RESULTS. EVP OPERATIONS TO SPECIFY Performed By: #### L 400.0001 #### [facility] [address] [place], [address] EPI,SQUAMOUS 0 SEEN Normal 0-5 [facility] Comment on above: Order Comment: COLOR OF URINE MAY AFFECT DIPSTICK RESULTS. EVP OPERATIONS TO SPECIFY Performed By: #### L 400.0001 #### [facility] [address] [place], [address] Mucus Ql (Urine sed) 0 SEEN Normal [facility] Comment on above: Order Comment: COLOR OF URINE MAY AFFECT DIPSTICK RESULTS. EVP OPERATIONS TO SPECIFY Performed By: #### L 400.0001 #### [facility] [address] [place], [address] Discharge Instructionon 08-05 Discharge Instruction [facility] Medical Records Department [address] [facility] [place] [address] Instructions for Home/Discharge Instructions 08/15/24 1058 MR#: [id number] Acct: [id number] Name: LEILANI GRIDER Rep #: [id number] : 1955 69 From: Freddie Acevedo MD PCP: LINDA Sanchez Status:REG [facility] Discharge Instructions Diet Discharge Diet: No restrictions Activity Discharge Activity: Return to Normal Activity and May Not Drive (while taking narcotic pain medications.) Dressing / Incision Call your doctor if you observe: Fever of 101 or Higher Follow Up Care Please Follow Up With: Freddie Acevedo MD When: Call [phone] for an appointment Test Results: Test results from this visit will be discussed in further detail at your follow-up appointment, if applicable. Discharge Plan Admission Primary Reason for Your Visit: resection of tumors Attending Provider: Freddie Acevedo Primary Care Provider: Celina Delgado NP Instructions Print Language: Yoruba Discharge Orders/Prescriptions Prescriptions: New ibuprofen 600 mg tablet 600 mg PO Q6H PRN (Reason: fever or pain) Qty: 20 0RF No Action acetaminophen [Acetaminophen Extra Strength] 500 mg tablet 1,000 mg PO Q6H PRN (Reason: pain) Referrals / Follow Up: Freddie Acevedo MD [Med Staff - Active Staff] - Celina Delgado NP, [employer] [Primary Care Provider] - Disposition Disposition (needs filled in before D/C Order can be placed): Home, Self Care 08/15/24 1058 Freddie Acevedo MD CC: [employer] Celina Delgado Signed [facility] MR/POSTOP.ANEon 08-15-2024 MR/POSTOP.[facility] Medical Records Department [address] [place] [address] Anesthesia Postop Eval I 08/15/24 1107 MR#: [id number] Acct: [id number] Name: LEILANI GRIDER Rep #: [id number] : 1955 69 From: Jael Unger CRNA PCP: LINDA Sanchez Status:REG SDC Y Race: C Location: [place] [address] Anesthesia: Postop Eval I Current Vital Signs Temperature: 98.5 F Pulse Rate: 78 Blood Pressure: 173/104 Respiratory Rate: 18 Pulse Ox: 98 Oxygen Delivery Method: Room Air Assessment Airway patent: Yes Spontaneous unlabored respirations: Yes Mental status: Awake and Calm nausea: No Vomiting: No Anesthesia Complication: No Fluid Hydration Crystalloid volume administer (ml): 600 Total IV fluid infused: 600 Progress Note Anesthesia document: Postop Eval 1 completed: Yes 08/15/24 1108 Date Jael Unger FUNERAL DIRECTOR Cosigner Signature: Date CC: Signed [facility] MR/[id number] 08-15-2024 MR/POSTOPAN2 [facility] Medical Records Department [address] [place] [address] Anesthesia Postop Eval II 08/15/24 1120 MR#: [id number] Acct: [id number] Name: LEILANI GRIDER Rep #: [id number] : 1955 69 From: Kenji Kruse MD PCP: LINDA Sanchez Status:REG SDC Y Race: C Location: [place] [address] Anesthesia Postop Eval I Sum Postop Eval Completion status Anesthesia document: Postop Eval 1 completed: Yes Anesthesia Postop Eval I Summary Anesthesia Postop Eval I Summary: Anesthesia Postop Eval I: Assessment Summary Airway patent Yes 08/15/24 11:08 FUNERAL DIRECTOR.[email or web address] Spontaneous unlabored Yes 08/15/24 11:08 FUNERAL DIRECTOR.SKOBY respirations Mental status Awake,Calm 08/15/24 11:08 FUNERAL DIRECTOR.SKOBY nausea No 08/15/24 11:08 FUNERAL DIRECTOR.SKOBY Vomiting No 08/15/24 11:08 FUNERAL DIRECTOR.SKOBY Anesthesia Postop Eval I: Fluid Summary Crystalloid volume administer 600 08/15/24 11:08 FUNERAL DIRECTOR.SKOBY (ml) Colloids volume administered ( ml) Blood Product volume administered (ml) Total IV fluid infused 600 08/15/24 11:08 FUNERAL DIRECTOR.KENYATTAOBJennifer Anesthesia Postop Eval I: Summary Notes Anesthesia Complication No 08/15/24 11:08 FUNERAL DIRECTOR.SKOBJennifer Anesthesia Complication Comment: Post-operative progress note Anesthesia: Postop Eval II Evaluation Mental status: Awake Pain Level: 0 nausea: No Vomiting: No 08/15/24 1120 Date Kenji Kruse MD Cosigner Signature: Date CC: Signed Normal [facility] Operative Reporton 4 Operative Report [facility] Medical Records Department [address] [place] [address] Operative Report 08/15/24 1058 MR#: [id number] Acct: [id number] Name: LEILANI GRIDER Rep #: [id number] : 1955 69 From: Freddie Acevedo MD PCP: JIMMY SanchezC Status:REG SDC Location: [place] [address] Report of Operation Date of Procedure: 08/15/24 Pre-Operative Diagnosis: Recurrent bladder cancer multiple Post-Operative Diagnosis: The same 13 sites of recurrence in the bladder Surgery/Procedure Performed:: Transurethral resection of bladder tumors multiple Description of Surgical Findings:: 69-year-old male was originally diagnosed with high-grade T1 invasion bladder cancer, he was then lost to follow-up and then had a recurrence recently with a lot of cancer around the bladder neck this was all resected completely and then he underwent BCG therapy for several months he was cleared and then on follow-up cystoscopy was found to have multiple recurrences with throughout the bladder that all came back at once so today I taken the surgery to the resection of all these tumor sites and then also instillation of Mitomycin-C as opposed resection dose. Patient was taken back to the operating room at this with induction of anesthesia he was placed in dorsolithotomy position. The penis and testicles were prepped and draped in usual sterile fashion, I first went in with a 21 Italian rigid cystourethroscope I did a wing cystoscopy identified all the visible tumors these all appeared like noninvasive papillary tumors multiple throughout the bladder I ended up counting about 13 different sites that had tumors in. I then switched over to the 24 Italian noncontinuous flow Olympus bipolar resectoscope and then I resected all these tumors one by one using the loop cautery I did not get any specimen because mostly just cauterize all these tumors and then after doing extensive amount of cauterization of all these tumors total tumor burden was probably about 3-1/2 to 4 cm in size in total but there were 13 different sites inside the bladder each site was about 1-1/2 cm in size so extensive amount of recurrent tumors within the bladder. After these were all resected I then used bluelight cystoscopy I did not identify any other tumor sites the right ureter orifice was clear of any tumors in the left ureter orifice had only 1 tumor very close to the orifice, the left ureter orifice had been resected back from prior resection. I then placed a Slater catheter bladder and we put Mitomycin-C into the bladder and clamped it off patient anesthetic was reversed with affect to the PACU with the catheter clamped the nurses will drain the Mitomycin-C and then he will go home today without a catheter follow-up in the office to review his postop course and then will probably plan for Mitomycin-C treatments in the office time x6. Surgeon: Freddie Acevedo Type of Anesthesia: General Drains: drain Admit VTE Documentation VTE Present on Admission: No VTE Mechan Device Prophylaxis: SCD's VTE Pharm Prophylaxis ordered?: No 08/15/24 1102 Cosigner Signature (if applicable): CC: LINDA Delgado; Dr. Freddie Acevedo MD Signed Normal [facility] .Auto Diffon 02-06-2024 Basophil, Absolute 0.1 10 3/mcL Normal 0.0-0.2 [facility] ([place]) Comment on above: Performed By: #### A FRANC, LIPID, ADIFF, CBC, TSH, CMP, MORPH, GFR, PSA #### [address] [address] Basophils/100 WBC (Bld) 1.5 % Normal 0.0-2.5 [facility] ([place]) Comment on above: Performed By: #### A FRANC, LIPID, ADIFF, CBC, TSH, CMP, MORPH, GFR, PSA #### [address] [address] Eosinophil, Absolute 0.3 10 3/mcL Normal 0.0-0.4 [facility] ([place]) Comment on above: Performed By: #### A FRANC, LIPID, ADIFF, CBC, TSH, CMP, MORPH, GFR, PSA #### [address] [address] Eosinophils/100 WBC (Bld) 5.8 % Normal 0.0-7.0 [facility] ([place]) Comment on above: Performed By: #### A FRANC, LIPID, ADIFF, CBC, TSH, CMP, MORPH, GFR, PSA #### [address] [address] Lymphocyte, Absolute 1.6 10 3/mcL Normal 0.8-3.9 [facility] ([place]) Comment on above: Performed By: #### A FRANC, LIPID, ADIFF, CBC, TSH, CMP, MORPH, GFR, PSA #### [address] [address] Lymphocytes/100 WBC (Bld) 28.1 % Normal 10.0-50.0 [facility] ([place]) Comment on above: Performed By: #### A FRANC, LIPID, ADIFF, CBC, TSH, CMP, MORPH, GFR, PSA #### [address] [address] Monocyte, Absolute 0.7 10 3/mcL Normal 0.2-1.0 [facility] ([place]) Comment on above: Performed By: #### A FRANC, LIPID, ADIFF, CBC, TSH, CMP, MORPH, GFR, PSA #### [address] [address] Monocytes/100 WBC (Bld) 12.4 % Normal 1.7-13.0 [facility] ([place]) Comment on above: Performed By: #### A FRANC, LIPID, ADIFF, CBC, TSH, CMP, MORPH, GFR, PSA #### [address] [address] Neutrophils/100 WBC (Bld) 52.2 % Normal 37.0-80.0 [facility] ([place]) Comment on above: Performed By: #### A FRANC, LIPID, ADIFF, CBC, TSH, CMP, MORPH, GFR, PSA #### [address] [address] .Morphon 02-06-2024 Anisocytosis Ql (Bld) 2+ Normal [facility] ([place]) Comment on above: Performed By: #### A FRANC, LIPID, ADIFF, CBC, TSH, CMP, MORPH, GFR, PSA #### [address] [address] Hypochrom 1+ Normal [facility] ([place]) Comment on above: Performed By: #### A FRANC, LIPID, ADIFF, CBC, TSH, CMP, MORPH, GFR, PSA #### [address] [address] Microcytosis 2+ Normal [facility] ([place]) Comment on above: Performed By: #### A FRANC, LIPID, ADIFF, CBC, TSH, CMP, MORPH, GFR, PSA #### [place] [address] Ovalocytes 1+ Normal [facility] ([place]) Comment on above: Performed By: #### A FRANC, LIPID, ADIFF, CBC, TSH, CMP, MORPH, GFR, PSA #### [address] [address] Platelet Estimate Normal Normal [facility] ([place]) Comment on above: Performed By: #### A FRANC, LIPID, ADIFF, CBC, TSH, CMP, MORPH, GFR, PSA #### [place] [address] Poik 2+ Normal [facility] ([place]) Comment on above: Performed By: #### A FRANC, LIPID, ADIFF, CBC, TSH, CMP, MORPH, GFR, PSA #### [place] [address] Tear Cell 1+ Normal [facility] ([place]) Comment on above: Performed By: #### A FRANC, LIPID, ADIFF, CBC, TSH, CMP, MORPH, GFR, PSA #### [address] [address] .NEUABSon 02-06-2024 Neutrophil, Absolute 3.0 10 3/mcL Normal 2.9-6.2 [facility] ([place]) Comment on above: Performed By: #### A FRANC, LIPID, ADIFF, CBC, TSH, CMP, MORPH, GFR, PSA #### [address] [address] CBCon 02-06-2024 Erythrocyte distribution width (RBC) [Ratio] 27.3 % High 11.5-14.5 [facility] ([place]) Comment on above: Performed By: #### A FRANC, LIPID, ADIFF, CBC, TSH, CMP, MORPH, GFR, PSA #### [place] [address] Hematocrit (Bld) [Volume fraction] 34.7 % Low 42.0-52.0 [facility] ([place]) Comment on above: Performed By: #### A FRANC, LIPID, ADIFF, CBC, TSH, CMP, MORPH, GFR, PSA #### [address] [place] [address] Hgb 11.1 G/dL Low 14.0-18.0 [facility] ([place]) Comment on above: Performed By: #### A FRANC, LIPID, ADIFF, CBC, TSH, CMP, MORPH, GFR, PSA #### [address] [address] MCH (RBC) [Entitic mass] 21.1 pg Low 27.0-31.2 [facility] ([place]) Comment on above: Performed By: #### A FRANC, LIPID, ADIFF, CBC, TSH, CMP, MORPH, GFR, PSA #### [address] [address] MCHC 32.0 G/dL Normal 31.8-35.4 [facility] ([place]) Comment on above: Performed By: #### A FRANC, LIPID, ADIFF, CBC, TSH, CMP, MORPH, GFR, PSA #### [address] [address] MCV (RBC) [Entitic vol] 66.0 fL Low 80.0-94.0 [facility] ([place]) Comment on above: Performed By: #### A FRANC, LIPID, ADIFF, CBC, TSH, CMP, MORPH, GFR, PSA #### [address] [address] Platelet 400 10 3/mcL Normal 130-400 [facility] ([place]) Comment on above: Performed By: #### A FRANC, LIPID, ADIFF, CBC, TSH, CMP, MORPH, GFR, PSA #### [address] [address] Platelet mean volume (Bld) [Entitic vol] 8.2 fL Normal 7.4-10.4 [facility] ([place]) Comment on above: Performed By: #### A FRANC, LIPID, ADIFF, CBC, TSH, CMP, MORPH, GFR, PSA #### [address] [address] RBC 5.26 10 6/mcL Normal 4.04-6.13 [facility] ([place]) Comment on above: Performed By: #### A FRANC, LIPID, ADIFF, CBC, TSH, CMP, MORPH, GFR, PSA #### [address] [address] WBC 5.7 10 3/mcL Normal 4.6-10.8 [facility] ([place]) Comment on above: Performed By: #### A FRANC, LIPID, ADIFF, CBC, TSH, CMP, MORPH, GFR, PSA #### [address] [address] .Auto Diffon 12-14-2023 Basophil, Absolute 0.1 10 3/mcL Normal 0.0-0.2 [facility] ([place]) Comment on above: Performed By: #### A FRANC, LIPID, ADIFF, CBC, TSH, CMP, MORPH, GFR, PSA #### [address] [address] Basophils/100 WBC (Bld) 2.2 % Normal 0.0-2.5 [facility] ([place]) Comment on above: Performed By: #### A FRANC, LIPID, ADIFF, CBC, TSH, CMP, MORPH, GFR, PSA #### [address] [address] Eosinophil, Absolute 0.3 10 3/mcL Normal 0.0-0.4 [facility] ([place]) Comment on above: Performed By: #### A FRANC, LIPID, ADIFF, CBC, TSH, CMP, MORPH, GFR, PSA #### [address] [address] Eosinophils/100 WBC (Bld) 4.9 % Normal 0.0-7.0 [facility] ([place]) Comment on above: Performed By: #### A FRANC, LIPID, ADIFF, CBC, TSH, CMP, MORPH, GFR, PSA #### [address] [address] Lymphocyte, Absolute 1.1 10 3/mcL Normal 0.8-3.9 [facility] ([place]) Comment on above: Performed By: #### A FRANC, LIPID, ADIFF, CBC, TSH, CMP, MORPH, GFR, PSA #### [address] [address] Lymphocytes/100 WBC (Bld) 19.7 % Normal 10.0-50.0 [facility] ([place]) Comment on above: Performed By: #### A FRANC, LIPID, ADIFF, CBC, TSH, CMP, MORPH, GFR, PSA #### [address] [address] Monocyte, Absolute 0.7 10 3/mcL Normal 0.2-1.0 [facility] ([place]) Comment on above: Performed By: #### A FRANC, LIPID, ADIFF, CBC, TSH, CMP, MORPH, GFR, PSA #### [address] [address] Monocytes/100 WBC (Bld) 12.8 % Normal 1.7-13.0 [facility] ([place]) Comment on above: Performed By: #### A FRANC, LIPID, ADIFF, CBC, TSH, CMP, MORPH, GFR, PSA #### [address] [address] Neutrophils/100 WBC (Bld) 60.4 % Normal 37.0-80.0 [facility] ([place]) Comment on above: Performed By: #### A FRANC, LIPID, ADIFF, CBC, TSH, CMP, MORPH, GFR, PSA #### [address] [address] .GFRon 12-14-2023 GFR 99 ml/min/1.73sqm Normal [facility] ([place]) Comment on above: Result Comment: GFR Population mean for , Non- Americans Ages 20-29 = 116 mL/min/1.73 sq.m. Ages 30-39 = 107 mL/min/1.73 sq.m. Ages 40-49 = 99 mL/min/1.73 sq.m. Ages 50-59 = 93 mL/min/1.73 sq.m. Ages 60-69 = 85 mL/min/1.73 sq.m. Ages 70+ = 75 mL/min/1.73 sq.m. Chronic Kidney Disease: Less than 60 mL/min/1.73 square meters End Stage Renal Disease: Less than 15 mL/min/1.73 square meters Performed By: #### A FRANC, LIPID, ADIFF, CBC, TSH, CMP, MORPH, GFR, PSA #### [address] [address] GFR Non- 81 ml/min/1.73sqm Normal [facility] ([place]) Comment on above: Result Comment: GFR Population mean for , Non- Americans Ages 20-29 = 116 mL/min/1.73 sq.m. Ages 30-39 = 107 mL/min/1.73 sq.m. Ages 40-49 = 99 mL/min/1.73 sq.m. Ages 50-59 = 93 mL/min/1.73 sq.m. Ages 60-69 = 85 mL/min/1.73 sq.m. Ages 70+ = 75 mL/min/1.73 sq.m. Chronic Kidney Disease: Less than 60 mL/min/1.73 square meters End Stage Renal Disease: Less than 15 mL/min/1.73 square meters Performed By: #### A FRANC, LIPID, ADIFF, CBC, TSH, CMP, MORPH, GFR, PSA #### [address] [address] .Morphon 12-14-2023 Anisocytosis Ql (Bld) 3+ Normal [facility] ([place]) Comment on above: Performed By: #### A FRANC, LIPID, ADIFF, CBC, TSH, CMP, MORPH, GFR, PSA #### [place] [id number] Hypochrom 1+ Normal [facility] ([place]) Comment on above: Performed By: #### A FRANC, LIPID, ADIFF, CBC, TSH, CMP, MORPH, GFR, PSA #### [address] [address] Microcytosis 2+ Normal [facility] ([place]) Comment on above: Performed By: #### A FRANC, LIPID, ADIFF, CBC, TSH, CMP, MORPH, GFR, PSA #### [place] [id number] Ovalocytes 1+ Normal [facility] ([place]) Comment on above: Performed By: #### A FRANC, LIPID, ADIFF, CBC, TSH, CMP, MORPH, GFR, PSA #### [address] [address] Platelet Estimate Slt Increased Normal [facility] ([place]) Comment on above: Performed By: #### A FRANC, LIPID, ADIFF, CBC, TSH, CMP, MORPH, GFR, PSA #### [address] [address] Poik 1+ Normal [facility] ([place]) Comment on above: Performed By: #### A FRANC, LIPID, ADIFF, CBC, TSH, CMP, MORPH, GFR, PSA #### [place] [address] Polychrom 1+ Normal [facility] ([place]) Comment on above: Performed By: #### A FRANC, LIPID, ADIFF, CBC, TSH, CMP, MORPH, GFR, PSA #### [address] [address] Tear Cell 1+ Normal [facility] ([place]) Comment on above: Performed By: #### A FRANC, LIPID, ADIFF, CBC, TSH, CMP, MORPH, GFR, PSA #### [address] [address] .NEUABSon 12-14-2023 Neutrophil, Absolute 3.3 10 3/mcL Normal 2.9-6.2 [facility] ([place]) Comment on above: Performed By: #### A FRANC, LIPID, ADIFF, CBC, TSH, CMP, MORPH, GFR, PSA #### [address] [address] CBCon 12-14-2023 Erythrocyte distribution width (RBC) [Ratio] 31.6 % High 11.5-14.5 [facility] ([place]) Comment on above: Performed By: #### A FRANC, LIPID, ADIFF, CBC, TSH, CMP, MORPH, GFR, PSA #### [place] [id number] Hematocrit (Bld) [Volume fraction] 29.2 % Low 42.0-52.0 [facility] ([place]) Comment on above: Performed By: #### A FRANC, LIPID, ADIFF, CBC, TSH, CMP, MORPH, GFR, PSA #### [address] [address] Hgb 9.0 G/dL Low 14.0-18.0 [facility] ([place]) Comment on above: Performed By: #### A FRANC, LIPID, ADIFF, CBC, TSH, CMP, MORPH, GFR, PSA #### [address] [address] MCH (RBC) [Entitic mass] 21.5 pg Low 27.0-31.2 [facility] ([place]) Comment on above: Performed By: #### A FRANC, LIPID, ADIFF, CBC, TSH, CMP, MORPH, GFR, PSA #### [address] [address] MCHC 30.9 G/dL Low 31.8-35.4 [facility] ([place]) Comment on above: Performed By: #### A FRANC, LIPID, ADIFF, CBC, TSH, CMP, MORPH, GFR, PSA #### [address] [address] MCV (RBC) [Entitic vol] 69.5 fL Low 80.0-94.0 [facility] ([place]) Comment on above: Performed By: #### A FRANC, LIPID, ADIFF, CBC, TSH, CMP, MORPH, GFR, PSA #### [address] [address] Platelet 578 10 3/mcL High 130-400 [facility] ([place]) Comment on above: Performed By: #### A FRANC, LIPID, ADIFF, CBC, TSH, CMP, MORPH, GFR, PSA #### [address] [address] Platelet mean volume (Bld) [Entitic vol] 6.4 fL Low 7.4-10.4 [facility] ([place]) Comment on above: Performed By: #### A FRANC, LIPID, ADIFF, CBC, TSH, CMP, MORPH, GFR, PSA #### [address] [address] RBC 4.21 10 6/mcL Normal 4.04-6.13 [facility] ([place]) Comment on above: Performed By: #### A FRANC, LIPID, ADIFF, CBC, TSH, CMP, MORPH, GFR, PSA #### [address] [address] WBC 5.5 10 3/mcL Normal 4.6-10.8 [facility] ([place]) Comment on above: Performed By: #### A FRANC, LIPID, ADIFF, CBC, TSH, CMP, MORPH, GFR, PSA #### [address] [address] CMPon 12-14-2023 Albumin Level 3.3 G/dL Low 3.4-4.8 [facility] ([place]) Comment on above: Performed By: #### A FRANC, LIPID, ADIFF, CBC, TSH, CMP, MORPH, GFR, PSA #### [address] [address] Albumin/Globulin [Mass ratio] 0.9 {ratio} Low 1.1-2.5 [facility] ([place]) Comment on above: Performed By: #### A FRNAC, LIPID, ADIFF, CBC, TSH, CMP, MORPH, GFR, PSA #### [address] [address] ALP [Catalytic activity/Vol] 89 U/L Normal 40-135 [facility] ([place]) Comment on above: Performed By: #### A FRANC, LIPID, ADIFF, CBC, TSH, CMP, MORPH, GFR, PSA #### [address] [address] ALT [Catalytic activity/Vol] 32 U/L Normal 16-63 [facility] ([place]) Comment on above: Performed By: #### A FRANC, LIPID, ADIFF, CBC, TSH, CMP, MORPH, GFR, PSA #### [address] [address] AST [Catalytic activity/Vol] 23 U/L Normal 10-40 [facility] ([place]) Comment on above: Performed By: #### A FRANC, LIPID, ADIFF, CBC, TSH, CMP, MORPH, GFR, PSA #### [address] [address] Bili Total 0.2 mg/dL Normal 0.2-1.0 [facility] ([place]) Comment on above: Result Comment: Use of this assay is not recommended for patients undergoing treatment with eltrombopag due to the potential for falsely elevated results. Performed By: #### A FRANC, LIPID, ADIFF, CBC, TSH, CMP, MORPH, GFR, PSA #### [address] [address] BUN/Creatinine Ratio 19 ratio Normal 7-27 [facility] ([place]) Comment on above: Performed By: #### A FRANC, LIPID, ADIFF, CBC, TSH, CMP, MORPH, GFR, PSA #### [address] [address] Calcium [Mass/Vol] 8.6 mg/dL Normal 8.4-10.2 [facility] ([place]) Comment on above: Performed By: #### A FRANC, LIPID, ADIFF, CBC, TSH, CMP, MORPH, GFR, PSA #### [address] [address] Chloride [Moles/Vol] 105 mmol/L Normal 98-107 [facility] ([place]) Comment on above: Performed By: #### A FRANC, LIPID, ADIFF, CBC, TSH, CMP, MORPH, GFR, PSA #### [address] [address] CO2 [Moles/Vol] 24 mmol/L Normal 23-31 [facility] ([place]) Comment on above: Performed By: #### A FRANC, LIPID, ADIFF, CBC, TSH, CMP, MORPH, GFR, PSA #### [address] [address] Creatinine [Mass/Vol] 0.93 mg/dL Normal 0.70-1.30 [facility] ([place]) Comment on above: Performed By: #### A FRANC, LIPID, ADIFF, CBC, TSH, CMP, MORPH, GFR, PSA #### [address] [address] Electrolyte Balance 12.0 mEq/L Normal 4.0-15.0 [facility] ([place]) Comment on above: Performed By: #### A FRANC, LIPID, ADIFF, CBC, TSH, CMP, MORPH, GFR, PSA #### [address] [address] Globulin 3.6 G/dL Normal [facility] ([place]) Comment on above: Performed By: #### A FRANC, LIPID, ADIFF, CBC, TSH, CMP, MORPH, GFR, PSA #### [address] [address] Glucose [Mass/Vol] 114 mg/dL Normal 80-115 [facility] ([place]) Comment on above: Performed By: #### A FRANC, LIPID, ADIFF, CBC, TSH, CMP, MORPH, GFR, PSA #### [address] [address] Potassium [Moles/Vol] 4.5 mmol/L Normal 3.5-5.1 [facility] ([place]) Comment on above: Performed By: #### A FRANC, LIPID, ADIFF, CBC, TSH, CMP, MORPH, GFR, PSA #### [address] [address] Sodium [Moles/Vol] 141 mmol/L Normal 136-145 [facility] ([place]) Comment on above: Performed By: #### A FRANC, LIPID, ADIFF, CBC, TSH, CMP, MORPH, GFR, PSA #### [address] [address] Total Protein 6.9 G/dL Normal 6.4-8.2 [facility] ([place]) Comment on above: Performed By: #### A FRANC, LIPID, ADIFF, CBC, TSH, CMP, MORPH, GFR, PSA #### [place] [id number] Urea nitrogen [Mass/Vol] 18 mg/dL Normal 7-18 [facility] ([place]) Comment on above: Performed By: #### A FRANC, LIPID, ADIFF, CBC, TSH, CMP, MORPH, GFR, PSA #### [address] [address] LIPIDon 12-14-2023 Cholesterol [Mass/Vol] 212 mg/dL High 0-200 [facility] ([place]) Comment on above: Result Comment: Chol esterol Reference Interval: Less than 200 Desirable 200-239 Borderline high risk 240 and above High risk Performed By: #### A FRANC, LIPID, ADIFF, CBC, TSH, CMP, MORPH, GFR, PSA #### [address] [address] Cholesterol in HDL [Mass/Vol] 74 mg/dL High 40-60 [facility] ([place]) Comment on above: Performed By: #### A FRANC, LIPID, ADIFF, CBC, TSH, CMP, MORPH, GFR, PSA #### [address] [address] Cholesterol in LDL [Mass/Vol] 120 mg/dL Normal 0-130 [facility] ([place]) Comment on above: Performed By: #### A FRANC, LIPID, ADIFF, CBC, TSH, CMP, MORPH, GFR, PSA #### [address] [address] Triglyceride [Mass/Vol] 88 mg/dL Normal 0-150 [facility] ([place]) Comment on above: Result Comment: Trig lyceride Reference Interval: Less than 150 Normal 150-199 Borderline high risk 200-499 High risk 500 or higher Very high risk Performed By: #### A FRANC, LIPID, ADIFF, CBC, TSH, CMP, MORPH, GFR, PSA #### [address] [address] PSAon 12-14-2023 Prostate Specific Antigen 1.30 ng/mL Normal 0.00-4.00 [facility] ([place]) Comment on above: Performed By: #### A FRANC, LIPID, ADIFF, CBC, TSH, CMP, MORPH, GFR, PSA #### [address] [address] TSHon 12-14-2023 TSH Qn 0.75 m[IU]/L Normal 0.36-3.74 [facility] ([place]) Comment on above: Performed By: #### A FRANC, LIPID, ADIFF, CBC, TSH, CMP, MORPH, GFR, PSA #### [address] [address] Urine Cultureon 12-06-2023 [facility]2 TESTING PERFORMED AT [facility]. ORIGINAL REPORT ON FILE IN LAB CONTAINS ADDITIONAL TEST SITE INFORMATION. Staphylococcus aureus [place] Count 80,000-100,000 Acinetobacter spp [place] Count 25,000-50,000 Staphylococcus epidermidis [place] Count 1000-10,000 Streptococcus sanguinis [place] Count 1000-10,000 Staphylococcus aureus: REACTION cefOXitin Susc Islt NEG Doxycycline Islt DEVON <=0.5 S Clindamycin.induced Susc Islt NEG Gentamicin Islt DEVON <=0.5 S levoFLOXacin Islt DEVON <=0.12 S Linezolid Islt DEVON 2 S Moxifloxacin Islt DEVON <=0.25 S Nitrofurantoin Islt DEVON <=16 S Oxacillin Susc Islt <=0.25 S Tetracycline Islt DEVON <=1 S TMP SMX Islt DEVNO <=10 S Vancomycin Islt DEVON 1 S Acinetobacter spp: REACTION Amikacin Islt DEVON S Ampicillin+Sulbac Islt DEVON S Cefepime Islt DEVON S Cefotaxime Islt DEVON S cefTAZidime Islt DEVON S cefTRIAXone Islt DEVON S Ciprofloxacin Islt DEVON S Gentamicin Islt DEVON S levoFLOXacin Islt DEVON S Meropenem Islt DEVON S Tetracycline Islt DEVON S Ticarcillin+Clav Islt DEVON S Tobramycin Islt DEVON S TMP SMX Islt DEVON S Staphylococcus epidermidis: REACTION cefOXitin Susc Islt POS Clindamycin.induced Susc Islt NEG Gentamicin Islt DEVON <=0.5 S levoFLOXacin Islt DEVON <=0.12 S Linezolid Islt DEVON 1 S Nitrofurantoin Islt DEVON <=16 S Oxacillin Susc Islt >=4 R Tetracycline Islt DEVON 2 S Vancomycin Islt DEVON 2 S Streptococcus sanguinis: REACTION Ampicillin Islt DEVON 0.50 I Penicillin G Islt DEVON 0.25 I Cefotaxime Islt DEVON <=0.12 S cefTRIAXone Islt DEVON <=0.12 S Vancomycin Islt DEVON 0.5 S Normal [facility] Comment on above: Performed By: #### M 100.2200 ####[facility] [address] [place], [address] Basic Metabolic Profile (BMP )on 12-05-2023 BUN Normal 7-18 [facility] Comment on above: Result Comment: Canc elled via OM: Order cancelled - Patient discharged Performed By: #### L 500.2500, L100.0100 #### [facility] [address] [place], [address] BUN/CRE Normal 10-20 [facility] Comment on above: Result Comment: Canc elled via OM: Order cancelled - Patient discharged Performed By: #### L 500.2500, L100.0100 #### [facility] [address] [place], [address] CA,Total Normal 8.5-10.1 [facility] Comment on above: Result Comment: Canc elled via OM: Order cancelled - Patient discharged Performed By: #### L 500.2500, L100.0100 #### [facility] [address] [place], [address] CL Normal 98-107 [facility] Comment on above: Result Comment: Canc elled via OM: Order cancelled - Patient discharged Performed By: #### L 500.2500, L100.0100 #### [facility] [address] [place], [address] CO2 Normal 21.0-32.0 [facility] Comment on above: Result Comment: Canc elled via OM: Order cancelled - Patient discharged Performed By: #### L 500.2500, L100.0100 #### [facility] [address] [place], [address] CREAT,SERUM Normal 0.70-1.30 [facility] Comment on above: Result Comment: Canc elled via OM: Order cancelled - Patient discharged Performed By: #### L 500.2500, L100.0100 #### [facility] [address] [place], [address] EST GFR Normal >60 [facility] Comment on above: Result Comment: Canc elled via OM: Order cancelled - Patient discharged Performed By: #### L 500.2500, L100.0100 #### [facility] [address] [place], [address] EST GFR - AA Normal >60 [facility] Comment on above: Result Comment: Canc elled via OM: Order cancelled - Patient discharged Performed By: #### L 500.2500, L100.0100 #### [facility] [address] [place], [address] GAP Normal 5-15 [facility] Comment on above: Result Comment: Canc elled via OM: Order cancelled - Patient discharged Performed By: #### L 500.2500, L100.0100 #### [facility] [address] [place], [address] GLU Normal 74-106 [facility] Comment on above: Result Comment: Canc elled via OM: Order cancelled - Patient discharged Performed By: #### L 500.2500, L100.0100 #### [facility] [address] [place], [address] Potassium Normal 3.5-5.1 [facility] Comment on above: Result Comment: Canc elled via OM: Order cancelled - Patient discharged Performed By: #### L 500.2500, L100.0100 #### [facility] [address] [place], [address] Basic Metabolic Profile (BMP) Normal 136-145 [facility] Comment on above: Result Comment: Canc elled via OM: Order cancelled - Patient discharged Performed By: #### L 500.2500, L100.0100 #### [facility] [address] [place], [address] CBC W/Diff, Automatedon -3 Absolute Neut Normal 2.0-7.7 [facility] Comment on above: Result Comment: Canc elled via OM: Order cancelled - Patient discharged Performed By: #### L 500.2500, L100.0100 #### [facility] [address] [place], [address] HCT Normal 40-54 [facility] Comment on above: Result Comment: Canc elled via OM: Order cancelled - Patient discharged Performed By: #### L 500.2500, L100.0100 #### [facility] [address] [place], [address] HGB Normal 13.0-16.5 [facility] Comment on above: Result Comment: Canc elled via OM: Order cancelled - Patient discharged Performed By: #### L 500.2500, L100.0100 #### [facility] [address] [place], [address] MCH Normal 27.0-32.0 [facility] Comment on above: Result Comment: Canc elled via OM: Order cancelled - Patient discharged Performed By: #### L 500.2500, L100.0100 #### [facility] [address] [place], [address] MCHC Normal 32-36 [facility] Comment on above: Result Comment: Canc elled via OM: Order cancelled - Patient discharged Performed By: #### L 500.2500, L100.0100 #### [facility] [address] [place], [address] MCV Normal 80-94 [facility] Comment on above: Result Comment: Canc elled via OM: Order cancelled - Patient discharged Performed By: #### L 500.2500, L100.0100 #### [facility] [address] [place], [address] NEUT% Normal 47-70 [facility] Comment on above: Result Comment: Canc elled via OM: Order cancelled - Patient discharged Performed By: #### L 500.2500, L100.0100 #### [facility] [address] [place], [address] PLT Normal 150-450 [facility] Comment on above: Result Comment: Canc elled via OM: Order cancelled - Patient discharged Performed By: #### L 500.2500, L100.0100 #### [facility] [address] [place], [address] RBC Normal 4.6-6.2 [facility] Comment on above: Result Comment: Canc elled via OM: Order cancelled - Patient discharged Performed By: #### L 500.2500, L100.0100 #### [facility] [address] [place], [address] RDW CV Normal 11.6-14.6 [facility] Comment on above: Result Comment: Canc elled via OM: Order cancelled - Patient discharged Performed By: #### L 500.2500, L100.0100 #### [facility] [address] [place], [address] RDW SD Normal 35.1-43.9 [facility] Comment on above: Result Comment: Canc elled via OM: Order cancelled - Patient discharged Performed By: #### L 500.2500, L100.0100 #### [facility] [address] [place], [address] WBC Normal 4.4-11.0 [facility] Comment on above: Result Comment: Canc elled via OM: Order cancelled - Patient discharged Performed By: #### L 500.2500, L100.0100 #### [facility] [address] [place], [address] Basic Metabolic Profile (BMP )on 12-04-2023 BUN Normal 7-18 [facility] Comment on above: Result Comment: Canc elled via OM: Order cancelled - Patient discharged Performed By: #### L 500.2500, L100.0100 #### [facility] [address] [place], [address] BUN/CRE Normal 10-20 [facility] Comment on above: Result Comment: Canc elled via OM: Order cancelled - Patient discharged Performed By: #### L 500.2500, L100.0100 #### [facility] [address] [place], [address] CA,Total Normal 8.5-10.1 [facility] Comment on above: Result Comment: Canc elled via OM: Order cancelled - Patient discharged Performed By: #### L 500.2500, L100.0100 #### [facility] [address] [place], [address] CL Normal 98-107 [facility] Comment on above: Result Comment: Canc elled via OM: Order cancelled - Patient discharged Performed By: #### L 500.2500, L100.0100 #### [facility] [address] [place], [address] CO2 Normal 21.0-32.0 [facility] Comment on above: Result Comment: Canc elled via OM: Order cancelled - Patient discharged Performed By: #### L 500.2500, L100.0100 #### [facility] [address] [place], [address] CREAT,SERUM Normal 0.70-1.30 [facility] Comment on above: Result Comment: Canc elled via OM: Order cancelled - Patient discharged Performed By: #### L 500.2500, L100.0100 #### [facility] [address] [place], [address] EST GFR Normal >60 [facility] Comment on above: Result Comment: Canc elled via OM: Order cancelled - Patient discharged Performed By: #### L 500.2500, L100.0100 #### [facility] [address] [place], [address] EST GFR - AA Normal >60 [facility] Comment on above: Result Comment: Canc elled via OM: Order cancelled - Patient discharged Performed By: #### L 500.2500, L100.0100 #### [facility] [address] [place], [address] GAP Normal 5-15 [facility] Comment on above: Result Comment: Canc elled via OM: Order cancelled - Patient discharged Performed By: #### L 500.2500, L100.0100 #### [facility] [address] [place], [address] GLU Normal 74-106 [facility] Comment on above: Result Comment: Canc elled via OM: Order cancelled - Patient discharged Performed By: #### L 500.2500, L100.0100 #### [facility] [address] [place], [address] Potassium Normal 3.5-5.1 [facility] Comment on above: Result Comment: Canc elled via OM: Order cancelled - Patient discharged Performed By: #### L 500.2500, L100.0100 #### [facility] [address] [place], [address] Basic Metabolic Profile (BMP) Normal 136-145 [facility] Comment on above: Result Comment: Canc elled via OM: Order cancelled - Patient discharged Performed By: #### L 500.2500, L100.0100 #### [facility] [address] [place], [address] CBC W/Diff, Automatedon 11-07-2023 Absolute Neut Normal 2.0-7.7 [facility] Comment on above: Result Comment: Canc elled via OM: Order cancelled - Patient discharged Performed By: #### L 500.2500, L100.0100 #### [facility] [address] [place], [address] HCT Normal 40-54 [facility] Comment on above: Result Comment: Canc elled via OM: Order cancelled - Patient discharged Performed By: #### L 500.2500, L100.0100 #### [facility] [address] [place], [address] HGB Normal 13.0-16.5 [facility] Comment on above: Result Comment: Canc elled via OM: Order cancelled - Patient discharged Performed By: #### L 500.2500, L100.0100 #### [facility] [address] [place], [address] MCH Normal 27.0-32.0 [facility] Comment on above: Result Comment: Canc elled via OM: Order cancelled - Patient discharged Performed By: #### L 500.2500, L100.0100 #### [facility] [address] [place], [address] MCHC Normal 32-36 [facility] Comment on above: Result Comment: Canc elled via OM: Order cancelled - Patient discharged Performed By: #### L 500.2500, L100.0100 #### [facility] [address] [place], [address] MCV Normal 80-94 [facility] Comment on above: Result Comment: Canc elled via OM: Order cancelled - Patient discharged Performed By: #### L 500.2500, L100.0100 #### [facility] [address] [place], [address] NEUT% Normal 47-70 [facility] Comment on above: Result Comment: Canc elled via OM: Order cancelled - Patient discharged Performed By: #### L 500.2500, L100.0100 #### [facility] [address] [place], [address] PLT Normal 150-450 [facility] Comment on above: Result Comment: Canc elled via OM: Order cancelled - Patient discharged Performed By: #### L 500.2500, L100.0100 #### [facility] [address] [place], [address] RBC Normal 4.6-6.2 [facility] Comment on above: Result Comment: Canc elled via OM: Order cancelled - Patient discharged Performed By: #### L 500.2500, L100.0100 #### [facility] [address] [place], [address] RDW CV Normal 11.6-14.6 [facility] Comment on above: Result Comment: Canc elled via OM: Order cancelled - Patient discharged Performed By: #### L 500.2500, L100.0100 #### [facility] [address] [place], [address] RDW SD Normal 35.1-43.9 [facility] Comment on above: Result Comment: Canc elled via OM: Order cancelled - Patient discharged Performed By: #### L 500.2500, L100.0100 #### [facility] [address] [place], [address] WBC Normal 4.4-11.0 [facility] Comment on above: Result Comment: Canc elled via OM: Order cancelled - Patient discharged Performed By: #### L 500.2500, L100.0100 #### [facility] [address] [place], [address] Basic Metabolic Profile (BMP )on 12-03-2023 BUN Normal 7-18 [facility] Comment on above: Result Comment: Canc elled via OM: Order cancelled - Patient discharged Performed By: #### L 500.2500, L100.0100 #### [facility] [address] [place], [address] BUN/CRE Normal 10-20 [facility] Comment on above: Result Comment: Canc elled via OM: Order cancelled - Patient discharged Performed By: #### L 500.2500, L100.0100 #### [facility] [address] [place], [address] CA,Total Normal 8.5-10.1 [facility] Comment on above: Result Comment: Canc elled via OM: Order cancelled - Patient discharged Performed By: #### L 500.2500, L100.0100 #### [facility] [address] [place], [address] CL Normal 98-107 [facility] Comment on above: Result Comment: Canc elled via OM: Order cancelled - Patient discharged Performed By: #### L 500.2500, L100.0100 #### [facility] [address] [place], [address] CO2 Normal 21.0-32.0 [facility] Comment on above: Result Comment: Canc elled via OM: Order cancelled - Patient discharged Performed By: #### L 500.2500, L100.0100 #### [facility] [address] [place], [address] CREAT,SERUM Normal 0.70-1.30 [facility] Comment on above: Result Comment: Canc elled via OM: Order cancelled - Patient discharged Performed By: #### L 500.2500, L100.0100 #### [facility] [address] [place], [address] EST GFR Normal >60 [facility] Comment on above: Result Comment: Canc elled via OM: Order cancelled - Patient discharged Performed By: #### L 500.2500, L100.0100 #### [facility] [address] [place], [address] EST GFR - AA Normal >60 [facility] Comment on above: Result Comment: Canc elled via OM: Order cancelled - Patient discharged Performed By: #### L 500.2500, L100.0100 #### [facility] [address] [place], [address] GAP Normal 5-15 [facility] Comment on above: Result Comment: Canc elled via OM: Order cancelled - Patient discharged Performed By: #### L 500.2500, L100.0100 #### [facility] [address] [place], [address] GLU Normal 74-106 [facility] Comment on above: Result Comment: Canc elled via OM: Order cancelled - Patient discharged Performed By: #### L 500.2500, L100.0100 #### [facility] [address] [place], [address] Potassium Normal 3.5-5.1 [facility] Comment on above: Result Comment: Canc elled via OM: Order cancelled - Patient discharged Performed By: #### L 500.2500, L100.0100 #### [facility] [address] [place], [address] Basic Metabolic Profile (BMP) Normal 136-145 [facility] Comment on above: Result Comment: Canc elled via OM: Order cancelled - Patient discharged Performed By: #### L 500.2500, L100.0100 #### [facility] [address] [place], [address] CBC W/Diff, Automatedon 01- Absolute Neut Normal 2.0-7.7 [facility] Comment on above: Result Comment: Canc elled via OM: Order cancelled - Patient discharged Performed By: #### L 500.2500, L100.0100 #### [facility] [address] [place], [address] HCT Normal 40-54 [facility] Comment on above: Result Comment: Canc elled via OM: Order cancelled - Patient discharged Performed By: #### L 500.2500, L100.0100 #### [facility] [address] [place], [address] HGB Normal 13.0-16.5 [facility] Comment on above: Result Comment: Canc elled via OM: Order cancelled - Patient discharged Performed By: #### L 500.2500, L100.0100 #### [facility] [address] [place], [address] MCH Normal 27.0-32.0 [facility] Comment on above: Result Comment: Canc elled via OM: Order cancelled - Patient discharged Performed By: #### L 500.2500, L100.0100 #### [facility] [address] [place], [address] MCHC Normal 32-36 [facility] Comment on above: Result Comment: Canc elled via OM: Order cancelled - Patient discharged Performed By: #### L 500.2500, L100.0100 #### [facility] [address] [place], [address] MCV Normal 80-94 [facility] Comment on above: Result Comment: Canc elled via OM: Order cancelled - Patient discharged Performed By: #### L 500.2500, L100.0100 #### [facility] [address] [place], [address] NEUT% Normal 47-70 [facility] Comment on above: Result Comment: Canc elled via OM: Order cancelled - Patient discharged Performed By: #### L 500.2500, L100.0100 #### [facility] [address] [place], [address] PLT Normal 150-450 [facility] Comment on above: Result Comment: Canc elled via OM: Order cancelled - Patient discharged Performed By: #### L 500.2500, L100.0100 #### [facility] [address] [place], [address] RBC Normal 4.6-6.2 [facility] Comment on above: Result Comment: Canc elled via OM: Order cancelled - Patient discharged Performed By: #### L 500.2500, L100.0100 #### [facility] [address] [place], [address] RDW CV Normal 11.6-14.6 [facility] Comment on above: Result Comment: Canc elled via OM: Order cancelled - Patient discharged Performed By: #### L 500.2500, L100.0100 #### [facility] [address] [place], [address] RDW SD Normal 35.1-43.9 [facility] Comment on above: Result Comment: Canc elled via OM: Order cancelled - Patient discharged Performed By: #### L 500.2500, L100.0100 #### [facility] [address] [place], [address] WBC Normal 4.4-11.0 [facility] Comment on above: Result Comment: Canc elled via OM: Order cancelled - Patient discharged Performed By: #### L 500.2500, L100.0100 #### [facility] [address] [place], [address] Basic Metabolic Profile (BMP )on 12-02-2023 BUN Normal 7-18 [facility] Comment on above: Result Comment: Canc elled via OM: Order cancelled - Patient discharged Performed By: #### L 500.2500, L100.0100 #### [facility] [address] [place], [address] BUN/CRE Normal 10-20 [facility] Comment on above: Result Comment: Canc elled via OM: Order cancelled - Patient discharged Performed By: #### L 500.2500, L100.0100 #### [facility] [address] [place], [address] CA,Total Normal 8.5-10.1 [facility] Comment on above: Result Comment: Canc elled via OM: Order cancelled - Patient discharged Performed By: #### L 500.2500, L100.0100 #### [facility] [address] [place], [address] CL Normal 98-107 [facility] Comment on above: Result Comment: Canc elled via OM: Order cancelled - Patient discharged Performed By: #### L 500.2500, L100.0100 #### [facility] [address] [place], [address] CO2 Normal 21.0-32.0 [facility] Comment on above: Result Comment: Canc elled via OM: Order cancelled - Patient discharged Performed By: #### L 500.2500, L100.0100 #### [facility] [address] [place], [address] CREAT,SERUM Normal 0.70-1.30 [facility] Comment on above: Result Comment: Canc elled via OM: Order cancelled - Patient discharged Performed By: #### L 500.2500, L100.0100 #### [facility] [address] [place], [address] EST GFR Normal >60 [facility] Comment on above: Result Comment: Canc elled via OM: Order cancelled - Patient discharged Performed By: #### L 500.2500, L100.0100 #### [facility] [address] [place], [address] EST GFR - AA Normal >60 [facility] Comment on above: Result Comment: Canc elled via OM: Order cancelled - Patient discharged Performed By: #### L 500.2500, L100.0100 #### [facility] [address] [place], [address] GAP Normal 5-15 [facility] Comment on above: Result Comment: Canc elled via OM: Order cancelled - Patient discharged Performed By: #### L 500.2500, L100.0100 #### [facility] [address] [place], [address] GLU Normal 74-106 [facility] Comment on above: Result Comment: Canc elled via OM: Order cancelled - Patient discharged Performed By: #### L 500.2500, L100.0100 #### [facility] [address] [place], [address] Potassium Normal 3.5-5.1 [facility] Comment on above: Result Comment: Canc elled via OM: Order cancelled - Patient discharged Performed By: #### L 500.2500, L100.0100 #### [facility] [address] [place], [address] Basic Metabolic Profile (BMP) Normal 136-145 [facility] Comment on above: Result Comment: Canc elled via OM: Order cancelled - Patient discharged Performed By: #### L 500.2500, L100.0100 #### [facility] [address] [place], [address] CBC W/Diff, Automatedon 01-2 Absolute Neut Normal 2.0-7.7 [facility] Comment on above: Result Comment: Canc elled via OM: Order cancelled - Patient discharged Performed By: #### L 500.2500, L100.0100 #### [facility] [address] [place], [address] HCT Normal 40-54 [facility] Comment on above: Result Comment: Canc elled via OM: Order cancelled - Patient discharged Performed By: #### L 500.2500, L100.0100 #### [facility] [address] [place], [address] HGB Normal 13.0-16.5 [facility] Comment on above: Result Comment: Canc elled via OM: Order cancelled - Patient discharged Performed By: #### L 500.2500, L100.0100 #### [facility] [address] [place], [address] MCH Normal 27.0-32.0 [facility] Comment on above: Result Comment: Canc elled via OM: Order cancelled - Patient discharged Performed By: #### L 500.2500, L100.0100 #### [facility] [address] [place], [address] MCHC Normal 32-36 [facility] Comment on above: Result Comment: Canc elled via OM: Order cancelled - Patient discharged Performed By: #### L 500.2500, L100.0100 #### [facility] [address] [place], [address] MCV Normal 80-94 [facility] Comment on above: Result Comment: Canc elled via OM: Order cancelled - Patient discharged Performed By: #### L 500.2500, L100.0100 #### [facility] [address] [place], [address] NEUT% Normal 47-70 [facility] Comment on above: Result Comment: Canc elled via OM: Order cancelled - Patient discharged Performed By: #### L 500.2500, L100.0100 #### [facility] [address] [place], [address] PLT Normal 150-450 [facility] Comment on above: Result Comment: Canc elled via OM: Order cancelled - Patient discharged Performed By: #### L 500.2500, L100.0100 #### [facility] [address] [place], [address] RBC Normal 4.6-6.2 [facility] Comment on above: Result Comment: Canc elled via OM: Order cancelled - Patient discharged Performed By: #### L 500.2500, L100.0100 #### [facility] [address] [place], [address] RDW CV Normal 11.6-14.6 [facility] Comment on above: Result Comment: Canc elled via OM: Order cancelled - Patient discharged Performed By: #### L 500.2500, L100.0100 #### [facility] [address] [place], [address] RDW SD Normal 35.1-43.9 [facility] Comment on above: Result Comment: Canc elled via OM: Order cancelled - Patient discharged Performed By: #### L 500.2500, L100.0100 #### [facility] [address] [place], [address] WBC Normal 4.4-11.0 [facility] Comment on above: Result Comment: Canc elled via OM: Order cancelled - Patient discharged Performed By: #### L 500.2500, L100.0100 #### [facility] [address] [place], [address] Basic Metabolic Profile (BMP )on 12-01-2023 BUN Normal 7-18 [facility] Comment on above: Result Comment: Canc elled via OM: Order cancelled - Patient discharged Performed By: #### L 100.0100, L500.2500 ####[facility] [address] [place], [address] BUN/CRE Normal 10-20 [facility] Comment on above: Result Comment: Canc elled via OM: Order cancelled - Patient discharged Performed By: #### L 100.0100, L500.2500 ####[facility] [address] [place], [address] CA,Total Normal 8.5-10.1 [facility] Comment on above: Result Comment: Canc elled via OM: Order cancelled - Patient discharged Performed By: #### L 100.0100, L500.2500 ####[facility] [address] [place], [address] CL Normal 98-107 [facility] Comment on above: Result Comment: Canc elled via OM: Order cancelled - Patient discharged Performed By: #### L 100.0100, L500.2500 ####[facility] [address] [place], [address] CO2 Normal 21.0-32.0 [facility] Comment on above: Result Comment: Canc elled via OM: Order cancelled - Patient discharged Performed By: #### L 100.0100, L500.2500 ####[facility] [address] [place], [address] CREAT,SERUM Normal 0.70-1.30 [facility] Comment on above: Result Comment: Canc elled via OM: Order cancelled - Patient discharged Performed By: #### L 100.0100, L500.2500 ####[facility] [address] [place], [address] EST GFR Normal >60 [facility] Comment on above: Result Comment: Canc elled via OM: Order cancelled - Patient discharged Performed By: #### L 100.0100, L500.2500 ####[facility] [address] [place], [address] EST GFR - AA Normal >60 [facility] Comment on above: Result Comment: Canc elled via OM: Order cancelled - Patient discharged Performed By: #### L 100.0100, L500.2500 ####[facility] [address] [place], [address] GAP Normal 5-15 [facility] Comment on above: Result Comment: Canc elled via OM: Order cancelled - Patient discharged Performed By: #### L 100.0100, L500.2500 ####[facility] [address] [place], [address] GLU Normal 74-106 [facility] Comment on above: Result Comment: Canc elled via OM: Order cancelled - Patient discharged Performed By: #### L 100.0100, L500.2500 ####[facility] [address] [place], [address] Potassium Normal 3.5-5.1 [facility] Comment on above: Result Comment: Canc elled via OM: Order cancelled - Patient discharged Performed By: #### L 100.0100, L500.2500 ####[facility] [address] [place], [address] Basic Metabolic Profile (BMP) Normal 136-145 [facility] Comment on above: Result Comment: Canc elled via OM: Order cancelled - Patient discharged Performed By: #### L 100.0100, L500.2500 ####[facility] [address] [place], [address] CBC W/Diff, Automatedon 01-2 Absolute Neut Normal 2.0-7.7 [facility] Comment on above: Result Comment: Canc elled via OM: Order cancelled - Patient discharged Performed By: #### L 100.0100, L500.2500 ####[facility] [address] [place], [address] HCT Normal 40-54 [facility] Comment on above: Result Comment: Canc elled via OM: Order cancelled - Patient discharged Performed By: #### L 100.0100, L500.2500 ####[facility] [address] [place], [address] HGB Normal 13.0-16.5 [facility] Comment on above: Result Comment: Canc elled via OM: Order cancelled - Patient discharged Performed By: #### L 100.0100, L500.2500 ####[facility] [address] [place], [address] MCH Normal 27.0-32.0 [facility] Comment on above: Result Comment: Canc elled via OM: Order cancelled - Patient discharged Performed By: #### L 100.0100, L500.2500 ####[facility] [address] [place], [address] MCHC Normal 32-36 [facility] Comment on above: Result Comment: Canc elled via OM: Order cancelled - Patient discharged Performed By: #### L 100.0100, L500.2500 ####[facility] [address] [place], [address] MCV Normal 80-94 [facility] Comment on above: Result Comment: Canc elled via OM: Order cancelled - Patient discharged Performed By: #### L 100.0100, L500.2500 ####[facility] [address] [place], [address] NEUT% Normal 47-70 [facility] Comment on above: Result Comment: Canc elled via OM: Order cancelled - Patient discharged Performed By: #### L 100.0100, L500.2500 ####[facility] [address] [place], [address] PLT Normal 150-450 [facility] Comment on above: Result Comment: Canc elled via OM: Order cancelled - Patient discharged Performed By: #### L 100.0100, L500.2500 ####[facility] [address] [place], [address] RBC Normal 4.6-6.2 [facility] Comment on above: Result Comment: Canc elled via OM: Order cancelled - Patient discharged Performed By: #### L 100.0100, L500.2500 ####[facility] [address] [place], [address] RDW CV Normal 11.6-14.6 [facility] Comment on above: Result Comment: Canc elled via OM: Order cancelled - Patient discharged Performed By: #### L 100.0100, L500.2500 ####[facility] [address] [place], [address] RDW SD Normal 35.1-43.9 [facility] Comment on above: Result Comment: Canc elled via OM: Order cancelled - Patient discharged Performed By: #### L 100.0100, L500.2500 ####[facility] [address] [place], [address] WBC Normal 4.4-11.0 [facility] Comment on above: Result Comment: Canc elled via OM: Order cancelled - Patient discharged Performed By: #### L 100.0100, L500.2500 ####[facility] [address] [place], [address] Basic Metabolic Profile (BMP )on 11-30-2023 BUN Normal 7-18 [facility] Comment on above: Result Comment: Canc elled via OM: Order cancelled - Patient discharged Performed By: #### L 500.2500, L100.0100 #### [facility] [address] [place], [address] BUN/CRE Normal 10-20 [facility] Comment on above: Result Comment: Canc elled via OM: Order cancelled - Patient discharged Performed By: #### L 500.2500, L100.0100 #### [facility] [address] [place], [address] CA,Total Normal 8.5-10.1 [facility] Comment on above: Result Comment: Canc elled via OM: Order cancelled - Patient discharged Performed By: #### L 500.2500, L100.0100 #### [facility] [address] [place], [address] CL Normal 98-107 [facility] Comment on above: Result Comment: Canc elled via OM: Order cancelled - Patient discharged Performed By: #### L 500.2500, L100.0100 #### [facility] [address] [place], [address] CO2 Normal 21.0-32.0 [facility] Comment on above: Result Comment: Canc elled via OM: Order cancelled - Patient discharged Performed By: #### L 500.2500, L100.0100 #### [facility] [address] [place], [address] CREAT,SERUM Normal 0.70-1.30 [facility] Comment on above: Result Comment: Canc elled via OM: Order cancelled - Patient discharged Performed By: #### L 500.2500, L100.0100 #### [facility] [address] [place], [address] EST GFR Normal >60 [facility] Comment on above: Result Comment: Canc elled via OM: Order cancelled - Patient discharged Performed By: #### L 500.2500, L100.0100 #### [facility] [address] [place], [address] EST GFR - AA Normal >60 [facility] Comment on above: Result Comment: Canc elled via OM: Order cancelled - Patient discharged Performed By: #### L 500.2500, L100.0100 #### [facility] [address] [place], [address] GAP Normal 5-15 [facility] Comment on above: Result Comment: Canc elled via OM: Order cancelled - Patient discharged Performed By: #### L 500.2500, L100.0100 #### [facility] [address] [place], [address] GLU Normal 74-106 [facility] Comment on above: Result Comment: Canc elled via OM: Order cancelled - Patient discharged Performed By: #### L 500.2500, L100.0100 #### [facility] [address] [place], [address] Potassium Normal 3.5-5.1 [facility] Comment on above: Result Comment: Canc elled via OM: Order cancelled - Patient discharged Performed By: #### L 500.2500, L100.0100 #### [facility] [address] [place], [address] Basic Metabolic Profile (BMP) Normal 136-145 [facility] Comment on above: Result Comment: Canc elled via OM: Order cancelled - Patient discharged Performed By: #### L 500.2500, L100.0100 #### [facility] [address] [place], [address] CBC W/Diff, Automatedon 01-2 Absolute Neut Normal 2.0-7.7 [facility] Comment on above: Result Comment: Canc elled via OM: Order cancelled - Patient discharged Performed By: #### L 500.2500, L100.0100 #### [facility] [address] [place], [address] HCT Normal 40-54 [facility] Comment on above: Result Comment: Canc elled via OM: Order cancelled - Patient discharged Performed By: #### L 500.2500, L100.0100 #### [facility] [address] [place], [address] HGB Normal 13.0-16.5 [facility] Comment on above: Result Comment: Canc elled via OM: Order cancelled - Patient discharged Performed By: #### L 500.2500, L100.0100 #### [facility] [address] [place], [address] MCH Normal 27.0-32.0 [facility] Comment on above: Result Comment: Canc elled via OM: Order cancelled - Patient discharged Performed By: #### L 500.2500, L100.0100 #### [facility] [address] [place], [address] MCHC Normal 32-36 [facility] Comment on above: Result Comment: Canc elled via OM: Order cancelled - Patient discharged Performed By: #### L 500.2500, L100.0100 #### [facility] [address] [place], [address] MCV Normal 80-94 [facility] Comment on above: Result Comment: Canc elled via OM: Order cancelled - Patient discharged Performed By: #### L 500.2500, L100.0100 #### [facility] [address] [place], [address] NEUT% Normal 47-70 [facility] Comment on above: Result Comment: Canc elled via OM: Order cancelled - Patient discharged Performed By: #### L 500.2500, L100.0100 #### [facility] [address] [place], [address] PLT Normal 150-450 [facility] Comment on above: Result Comment: Canc elled via OM: Order cancelled - Patient discharged Performed By: #### L 500.2500, L100.0100 #### [facility] [address] [place], [address] RBC Normal 4.6-6.2 [facility] Comment on above: Result Comment: Canc elled via OM: Order cancelled - Patient discharged Performed By: #### L 500.2500, L100.0100 #### [facility] [address] [place], [address] RDW CV Normal 11.6-14.6 [facility] Comment on above: Result Comment: Canc elled via OM: Order cancelled - Patient discharged Performed By: #### L 500.2500, L100.0100 #### [facility] [address] [place], [address] RDW SD Normal 35.1-43.9 [facility] Comment on above: Result Comment: Canc elled via OM: Order cancelled - Patient discharged Performed By: #### L 500.2500, L100.0100 #### [facility] [address] [place], [address] WBC Normal 4.4-11.0 [facility] Comment on above: Result Comment: Canc elled via OM: Order cancelled - Patient discharged Performed By: #### L 500.2500, L100.0100 #### [facility] [address] [place], [address] Absolute lymphocyte countOrd ered By: Breann Graham on 11-29-2023 Lymphocytes Auto (Unsp spec) [#/Vol] 1.00 10*3/uL 0.83-4.51 [facility] Automated lymphocyte count a s percentage of total leukocytesOrdered By: Breann Graham on 11-29-2023 Lymphocytes/100 WBC Auto (Unsp spec) 15.0 % 19-41 [facility] Basic Metabolic Profile (BMP )on 11-29-2023 BUN/CRE 20.0 RATIO Normal 10-20 [facility] Comment on above: Performed By: #### L 500.2500, L100.0100 #### [facility] [address] [place], [address] CA,Total 8.6 mg/dL Normal 8.5-10.1 [facility] Comment on above: Performed By: #### L 500.2500, L100.0100 #### [facility] [address] [place], [address] Chloride [Moles/Vol] 112 mmol/L High 98-107 [facility] Comment on above: Performed By: #### L 500.2500, L100.0100 #### [facility] [address] [place], [address] CO2 [Moles/Vol] 24.0 mmol/L Normal 21.0-32.0 [facility] Comment on above: Performed By: #### L 500.2500, L100.0100 #### [facility] [address] [place], [address] Creatinine [Mass/Vol] 0.85 mg/dL Normal 0.70-1.30 [facility] Comment on above: Result Comment: The validity of the calculated GFR GFRAA in patients over 70 years has not been determined. Clinical correlation is essential. Performed By: #### L 500.2500, L100.0100 #### [facility] [address] [place], [address] ECRCL 85.51 ml/min Normal [facility] Comment on above: Performed By: #### L 500.2500, L100.0100 #### [facility] [address] [place], [address] EST GFR - AA 116 mL/min Normal >60 [facility] Comment on above: Result Comment: Afri can Indian GFR Calc Performed By: #### L 500.2500, L100.0100 #### [facility] [address] [place], [address] GAP 1 Low 5-15 [facility] Comment on above: Performed By: #### L 500.2500, L100.0100 #### [facility] [address] [place], [address] GFR/1.73 sq M.predicted among non-blacks MDRD (S/P/Bld) [Vol rate/Area] 96 mL/min/{1.73_m2} Normal >60 [facility] Comment on above: Result Comment: Non- GFR Calc Performed By: #### L 500.2500, L100.0100 #### [facility] [address] [place], [address] Glucose [Mass/Vol] 110 mg/dL High 74-106 [facility] Comment on above: Result Comment: Fast ing Glucose result from 100 to 125 mg/dL suggests IMPAIRED HOMEOSTASIS per A.D.A. criteria. Performed By: #### L 500.2500, L100.0100 #### [facility] [address] [place], [address] Potassium [Moles/Vol] 4.2 mmol/L Normal 3.5-5.1 [facility] Comment on above: Performed By: #### L 500.2500, L100.0100 #### [facility] [address] [place], [address] Sodium [Moles/Vol] 137 mmol/L Normal 136-145 [facility] Comment on above: Performed By: #### L 500.2500, L100.0100 #### [facility] [address] [place], [address] Urea nitrogen [Mass/Vol] 17 mg/dL Normal 7-18 [facility] Comment on above: Performed By: #### L 500.2500, L100.0100 #### [facility] [address] [place], [address] Basophil percentageOrdered B y: Breann Graham on 11-29-2023 Basophils/100 WBC (Bld) 1.4 % 0-1 [facility] Chloride [Moles/Vol] 112 mmol/L 98-107 [facility] Eosinophils/100 WBC (Bld) 5.6 % 0-5 [facility] Glucose [Mass/Vol] 110 mg/dL 74-106 [facility] Comment on above: Fasting Glucose resu lt from 100 to 125 mg/dL suggests IMPAIRED HOMEOSTASIS per A.D.A. criteria. Hemoglobin (Bld) [Mass/Vol] 8.3 g/dL 13.0-16.5 [facility] Monocytes/100 WBC (Bld) 11.3 % 0-10 [facility] Neutrophils (Bld) [#/Vol] 4.4 10*3/uL 2.0-7.7 [facility] Neutrophils/100 WBC (Bld) 66.1 % 47-70 [facility] Potassium [Moles/Vol] 4.2 mmol/L 3.5-5.1 [facility] Sodium [Moles/Vol] 137 mmol/L 136-145 [facility] WBC (Bld) [#/Vol] 6.7 10*3/uL 4.4-11.0 [facility] CBC W/Diff, Automatedon 11-06 Anisocytosis Ql (Bld) 2+ Normal [facility] Comment on above: Performed By: #### L 500.2500, L100.0100 #### [facility] [address] [facility] [address] [place], [address] Determination of erythrocyte mean corpuscular volume (MCV)Ordered By: Breann Graham on 11-29-2023 MCV (RBC) [Entitic vol] 72.8 fL 80-94 [facility] Discharge Instructionon 11-06 Discharge Instruction [facility] Medical Records Department [address] [place] [address] Instructions for Home/Discharge Instructions 11/29/23 1322 MR#: [id number] Acct: [id number] Name: LEILANI GRIDER Rep #: [id number] : 1955 68 From: Breann Graham MD PCP: LINDA Sanchez Status:ADM IN Discharge Instructions Diet Discharge Diet: Low fat / Low cholesterol Activity Discharge Activity: Return to Normal Activity Weight Bearing Status: Weight bearing as tolerated Dressing / Incision Call your doctor if you observe: Fever of 101 or Higher, Shortness of breath, Dizziness, Swelling in the ankles, Chest pain and Increased palpitations (irregular heartbeat) Follow Up Care Test Results: Test results from this visit will be discussed in further detail at your follow-up appointment, if applicable. Discharge Plan Admission Admit Date/Time: 11/26/23 13:13 Primary Reason for Your Visit: hematuria, bladder mass, UTI Attending Provider: Breann Graham Primary Care Provider: Celina Delgado NP Consulting Providers: Freddie Acevedo; Ervin Anderson Instructions Patient Instructions: Hematuria: Possible Causes, Understanding Bladder Cancer, Staging of Bladder Cancer Discharge Orders/Prescriptions Prescriptions: New sulfamethoxazole-tri methoprim 800-160 mg Tablet 1 tab PO BIDCM Qty: 8 0RF cefdinir 300 mg capsule 300 mg PO BID Qty: 10 0RF Continued tamsulosin 0.4 mg capsule 0.4 mg PO QHS Referrals / Follow Up: Freddie Acevedo MD [Med Staff - Active Staff] - Within 1 Week Celina Delgado NP, [employer] [Primary Care Provider] - Within 2 Weeks Disposition Disposition (needs filled in before D/C Order can be placed): Home, Self Care 11/29/23 1324 Breann Graham MD CC: LINDA Delgado; Dr. Ervin Anderson DO; Dr. Freddie Acevedo MD Signed Normal [facility] Erythrocyte distribution wid th ratioOrdered By: Breann Graham on 11-29-2023 Erythrocyte distribution width (RBC) [Ratio] 26.9 % 11.6-14.6 [facility] Erythrocyte distribution wid th standard deviationOrdered By: Breann Graham on 11-29-2023 Erythrocyte distribution width (RBC) [Entitic vol] 67.7 fL 35.1-43.9 [facility] Hematocrit Auto (Bld) [Volum e fraction]Ordered By: Breann Graham on 11-29-2023 Hematocrit (Bld) [Volume fraction] 28.1 % 40-54 [facility] Immature granulocytes/100 WB C Auto (Bld)Ordered By: Breann Graham on 11-29-2023 Immature granulocytes/100 WBC (Bld) 0.600 % 0.0-0.9 [facility] Comment on above: IG% - Immature Granu locytes (promyelocytes, myelocytes and metamyelocytes) > 1% indicates that a LEFT SHIFT is Present. Laboratory - Chemistry and C hemistry - challengeOrdered By: Breann Graham on 11-29-2023 CO2 [Moles/Vol] 24.0 mmol/L 21.0-32.0 [facility] Urea nitrogen/Creatinine [Mass ratio] 20.0 mg/mg 10-20 [facility] - Hematology and Cell countsOrdered By: Breann Graham on 11-29-2023 Anisocytosis Ql (Bld) 2+ [facility] MCH (RBC) [Entitic mass] 21.5 pg 27.0-32.0 [facility] MCHC (RBC) [Mass/Vol] 29.5 g/dL 32-36 [facility] Nucleated RBC/100 WBC (Bld) [Ratio] 0 % 0-5 [facility] Platelets (Bld) [#/Vol] 326 10*3/uL 150-450 [facility] No Panel InformationOrdered By: Breann Graham on 11-29-2023 Estimated Creatinine Clearance Calc 85.51 ml/min [facility] Estimated GFR (MDRD) Amer 116 mL/min >60 [facility] Comment on above: GFR Calc Estimated GFR (MDRD) Non-Af Amer 96 mL/min >60 [facility] Comment on above: Non- GFR Calc Platelet mean volume Alejandro-Ec ker (Bld) [Entitic vol]Ordered By: Breann Graham on 11-29-2023 Platelet mean volume (Bld) [Entitic vol] 9.6 fL 6.2-12.0 [facility] RBC Auto (Bld) [#/Vol]Ordere d By: Breann Graham on 11-29-2023 RBC (Bld) [#/Vol] 3.86 10*6/uL 4.6-6.2 [facility] Serum or plasma calcium melinda urement (mass/volume)Ordered By: Breann Graham on 11-29-2023 Calcium [Mass/Vol] 8.6 mg/dL 8.5-10.1 [facility] Serum or plasma creatinine m easurement (mass/volume)Ordered By: Breann Graham on 11-29-2023 Creatinine [Mass/Vol] 0.85 mg/dL 0.70-1.30 [facility] Comment on above: The validity of the calculated GFR & GFRAA in patients over 70 years has not been determined. Clinical correlation is essential. Serum or plasma urea nitroge n measurement (mass/volume)Ordered By: Breann Graham on 11-29-2023 Urea nitrogen [Mass/Vol] 17 mg/dL 7-18 [facility] Thin prep Papanicolaou smear with manual screeningOrdered By: Breannmk Graham on 11-29-2023 Thin prep Papanicolaou smear with manual screening 1 5-15 [facility] Basic Metabolic Profile (BMP )on 11-28-2023 BUN/CRE 20.2 RATIO High 10-20 [facility] Comment on above: Performed By: #### L 500.2500, L100.0100 #### [facility] [address] [place], [address] CA,Total 8.0 mg/dL Low 8.5-10.1 [facility] Comment on above: Performed By: #### L 500.2500, L100.0100 #### [facility] [address] [place], [address] Chloride [Moles/Vol] 109 mmol/L High 98-107 [facility] Comment on above: Performed By: #### L 500.2500, L100.0100 #### [facility] [address] [place], [address] CO2 [Moles/Vol] 25.0 mmol/L Normal 21.0-32.0 [facility] Comment on above: Performed By: #### L 500.2500, L100.0100 #### [facility] [address] [place], [address] Creatinine [Mass/Vol] 0.94 mg/dL Normal 0.70-1.30 [facility] Comment on above: Result Comment: The validity of the calculated GFR GFRAA in patients over 70 years has not been determined. Clinical correlation is essential. Performed By: #### L 500.2500, L100.0100 #### [facility] [address] [place], [address] ECRCL 77.32 ml/min Normal [facility] Comment on above: Performed By: #### L 500.2500, L100.0100 #### [facility] [address] [place], [address] EST GFR - AA 103 mL/min Normal >60 [facility] Comment on above: Result Comment: Afri can Indian GFR Calc Performed By: #### L 500.2500, L100.0100 #### [facility] [address] [place], [address] GAP 4 Low 5-15 [facility] Comment on above: Performed By: #### L 500.2500, L100.0100 #### [facility] [address] [place], [address] GFR/1.73 sq M.predicted among non-blacks MDRD (S/P/Bld) [Vol rate/Area] 85 mL/min/{1.73_m2} Normal >60 [facility] Comment on above: Result Comment: Non- GFR Calc Performed By: #### L 500.2500, L100.0100 #### [facility] [address] [place], [address] Glucose [Mass/Vol] 122 mg/dL High 74-106 [facility] Comment on above: Result Comment: Fast ing Glucose result from 100 to 125 mg/dL suggests IMPAIRED HOMEOSTASIS per A.D.A. criteria. Performed By: #### L 500.2500, L100.0100 #### [facility] [address] [place], [address] Potassium [Moles/Vol] 3.8 mmol/L Normal 3.5-5.1 [facility] Comment on above: Performed By: #### L 500.2500, L100.0100 #### [facility] [address] [place], [address] Sodium [Moles/Vol] 138 mmol/L Normal 136-145 [facility] Comment on above: Performed By: #### L 500.2500, L100.0100 #### [facility] [address] [place], [address] Urea nitrogen [Mass/Vol] 19 mg/dL High 7-18 [facility] Comment on above: Performed By: #### L 500.2500, L100.0100 #### [facility] [address] [place], [address] CBC W/Diff, Automatedon 11-06 PATH REV Reviewed Normal [facility] Comment on above: Order Comment: CRITI JARED VALUE VERIFIED. CALLED TO [id number]/22/24 Ruy Crowder.RESULTS READ BACK BY SAME . Result Comment: Beth re Microcytic anemia. Clinical correlation necessary. Ward Drake M.D. 11/28/23 AMENDED REPORT 11/28/23 1426 PATH REV previously reported as: Greer childs Performed By: #### L 500.2500, L100.0100 #### [facility] [address] [place], [address] Anisocytosis Ql (Bld) 1+ Normal [facility] Comment on above: Performed By: #### L 500.2500, L100.0100 #### [facility] [address] [place], [address] HYPOCHROMASIA 1+ Normal [facility] Comment on above: Performed By: #### L 500.2500, L100.0100 #### [facility] [address] [place], [address] Hypochromatic red blood cell detectionOrdered By: Breann Graham on 11-28-2023 Hypochromia Ql (Bld) 1+ [facility] Activated partial thrombopla stin time (aPTT) in platelet poor plasma by coagulation aOrdered By: Freddie Acevedo on 11-27-2023 aPTT Coag (PPP) [Time] 29.1 s 24.1-36.2 [facility] Basic Metabolic Profile (BMP )on 11-27-2023 BUN/CRE 16.0 RATIO Normal 10-20 [facility] Comment on above: Performed By: #### L 500.2500, L100.0100 #### [facility] [address] [place], [address] CA,Total 8.3 mg/dL Low 8.5-10.1 [facility] Comment on above: Performed By: #### L 500.2500, L100.0100 #### [facility] [address] [place], [address] Chloride [Moles/Vol] 112 mmol/L High 98-107 [facility] Comment on above: Performed By: #### L 500.2500, L100.0100 #### [facility] [address] [place], [address] CO2 [Moles/Vol] 21.0 mmol/L Normal 21.0-32.0 [facility] Comment on above: Performed By: #### L 500.2500, L100.0100 #### [facility] [address] [place], [address] Creatinine [Mass/Vol] 1.00 mg/dL Normal 0.70-1.30 [facility] Comment on above: Result Comment: The validity of the calculated GFR GFRAA in patients over 70 years has not been determined. Clinical correlation is essential. Performed By: #### L 500.2500, L100.0100 #### [facility] [address] [place], [address] ECRCL 72.68 ml/min Normal [facility] Comment on above: Performed By: #### L 500.2500, L100.0100 #### [facility] [address] [place], [address] EST GFR - AA 96 mL/min Normal >60 [facility] Comment on above: Result Comment: Afri can Indian GFR Calc Performed By: #### L 500.2500, L100.0100 #### [facility] [address] [place], [address] GAP 7 Normal 5-15 [facility] Comment on above: Performed By: #### L 500.2500, L100.0100 #### [facility] [address] [place], [address] GFR/1.73 sq M.predicted among non-blacks MDRD (S/P/Bld) [Vol rate/Area] 80 mL/min/{1.73_m2} Normal >60 [facility] Comment on above: Result Comment: Non- GFR Calc Performed By: #### L 500.2500, L100.0100 #### [facility] [address] [place], [address] Glucose [Mass/Vol] 104 mg/dL Normal 74-106 [facility] Comment on above: Result Comment: Fast ing Glucose result from 100 to 125 mg/dL suggests IMPAIRED HOMEOSTASIS per A.D.A. criteria. Performed By: #### L 500.2500, L100.0100 #### [facility] [address] [place], [address] Potassium [Moles/Vol] 4.0 mmol/L Normal 3.5-5.1 [facility] Comment on above: Performed By: #### L 500.2500, L100.0100 #### [facility] [address] [place], [address] Sodium [Moles/Vol] 140 mmol/L Normal 136-145 [facility] Comment on above: Performed By: #### L 500.2500, L100.0100 #### [facility] [address] [place], [address] Urea nitrogen [Mass/Vol] 16 mg/dL Normal 7-18 [facility] Comment on above: Performed By: #### L 500.2500, L100.0100 #### [facility] [address] [place], [address] CBC-Complete Blood Cnt No Di ffon 11-27-2023 Erythrocyte distribution width (RBC) [Ratio] 24.1 % High 11.6-14.6 [facility] Comment on above: Performed By: #### L 500.2500, L100.0100 #### [facility] [address] [place], [address] Hematocrit (Bld) [Volume fraction] 22.0 % Low 40-54 [facility] Comment on above: Performed By: #### L 500.2500, L100.0100 #### [facility] [address] [place], [address] Hemoglobin (Bld) [Mass/Vol] 6.5 g/dL Low 13.0-16.5 [facility] Comment on above: Performed By: #### L 500.2500, L100.0100 #### [facility] [address] [place], [address] MCH (RBC) [Entitic mass] 20.0 pg Low 27.0-32.0 [facility] Comment on above: Performed By: #### L 500.2500, L100.0100 #### [facility] [address] [place], [address] MCHC (RBC) [Mass/Vol] 29.5 g/dL Low 32-36 [facility] Comment on above: Performed By: #### L 500.2500, L100.0100 #### [facility] [address] [place], [address] MCV (RBC) [Entitic vol] 67.7 fL Low 80-94 [facility] Comment on above: Performed By: #### L 500.2500, L100.0100 #### [facility] [address] [place], [address] Platelet mean volume (Bld) [Entitic vol] 9.0 fL Normal 6.2-12.0 [facility] Comment on above: Performed By: #### L 500.2500, L100.0100 #### [facility] [address] [place], [address] Platelets (Bld) [#/Vol] 315 10*3/uL Normal 150-450 [facility] Comment on above: Performed By: #### L 500.2500, L100.0100 #### [facility] [address] [place], [address] RBC (Bld) [#/Vol] 3.25 10*6/uL Low 4.6-6.2 [facility] Comment on above: Performed By: #### L 500.2500, L100.0100 #### [facility] [address] [place], [address] RDW SD 57.3 fl High 35.1-43.9 [facility] Comment on above: Performed By: #### L 500.2500, L100.0100 #### [facility] [address] [place], [address] WBC (Bld) [#/Vol] 7.3 10*3/uL Normal 4.4-11.0 [facility] Comment on above: Performed By: #### L 500.2500, L100.0100 #### [facility] [address] [place], [address] International normalized rat io (INR) calculationOrdered By: Ervin Anderson on 11-27-2023 INR Coag (PPP) [Relative time] 1.1 {INR} [facility] - CoagulationOrde red By: Ervin Anderson on 11-27-2023 PT Coag (PPP) [Time] 13.8 s 11.7-14.9 [facility] Operative Reporton 4 Operative Report [facility] Medical Records Department [address] [place] [address] Operative Report 11/27/23 0255 MR#: [id number] Acct: [id number] Name: LEILANI GRIDER Rep #: [id number] : 1955 68 From: Freddie Acevedo MD PCP: LINDA Sanchez Status:ADM IN Location: ICU [place] [address] Report of Operation Date of Procedure: 11/27/23 Pre-Operative Diagnosis: Bleeding large bladder mass Post-Operative Diagnosis: Same Surgery/Procedure Performed:: Transurethral resection of bladder tumor large and cystoscopy evacuation of clots Description of Surgical Findings:: 68-year-old male was admitted to the hospital with continuous gross hematuria from a known large bladder mass he has acute anemia and had resuscitated blood transfusion given he was in the ICU this evening but having more clots and bleeding and severe pain from the clots so we decided to take the patient to the operating room tonight to evacuate all the blood clots and resect this bleeding bladder tumor. Patient was taken back to the operating room after smooth induction of general anesthesia by Dr. Kruse he was placed in dorsolithotomy position. The Slater catheter was removed the penis and testicles were prepped and draped in usual sterile fashion I then went into the bladder with a 26 Italian continuous-flow resectoscope. The entire length of the urethra was free of any strictures or trauma the sphincter was intact verumontanum was identified he did have a large bilateral obstructive prostate inside the bladder and immediately ran into a significant amount of blood clots I then used the Anuradha evacuator and evacuated out all the clots. I then was able to see the tumor the tumor location was extensive he had a tumor coming across his bladder neck and anterior bladder tumor coming from the lateral wall and tumor in the trigone area total size of the tumor measured was quite large about 5 cm x 4 cm x 4 cm asked multiple tumors throughout, after the tumor was evaluated then I used a resectoscope and I resected the tumor down to the base and the anterior wall and lateral wall and down on the trigone got good deep muscle bites. It did not appear to be a muscle invasive tumor but it did appear to be an invasive tumor probably to the lamina propria very likely will need BCG therapy to help her prevent recurrences. Will see what the final pathology demonstrates. After resecting tumor completely and all the tumor chips were removed of the bladder we placed a 22 Italian catheter into the bladder on continuous irrigation his anesthetic was reversed taken back to the intensive care unit in stable condition. Surgeon: Freddie Acevedo Type of Anesthesia: General Drains: 22fr 3 way Estimated Blood Loss (mL): 20 Admit VTE Documentation VTE Present on Admission: No VTE Mechan Device Prophylaxis: SCD's VTE Pharm Prophylaxis ordered?: No 11/27/23 0259 Cosigner Signature (if applicable): CC: LINDA Delgado; Dr. Freddie Acevedo MD Signed Normal [facility] Partial Thromboplast Timeon 11-27-2023 aPTT Coag (Bld) [Time] 29.1 s Normal 24.1-36.2 [facility] Comment on above: Performed By: #### L 500.2500, L100.0100 #### [facility] [address] [place], [address] Prothrombin Time w/INRon INR Coag (PPP) [Relative time] 1.1 {INR} Normal [facility] Comment on above: Performed By: #### L 500.2500, L100.0100 #### [facility] [address] [place], [address] PT Coag (PPP) [Time] 13.8 s Normal 11.7-14.9 [facility] Comment on above: Performed By: #### L 500.2500, L100.0100 #### [facility] [place], [address] Surgery Specimen Level Ebonie 11-27-2023 Surgery Specimen Level IV Patient Age/Sex Location Account Attending Physician MARNILEILANI Alarcon 68/M ICU [id number] Dr. Breann Graham MD Specimen: [id number] Received: 11/27/230 Status: WANG Ritter Num: [id number] Spec Type: TURB Subm Dr: Dr. Freddie Acevedo MD HEADER OPERATION: Cysto, transurethral resection bladder, [employer] PRE-OP DIAGNOSIS: Acute blood loss anemia, gross hematuria TISSUE SUBMITTED: A - Blood clots, B - Bladder tumor MICROSCOPIC DIAGNOSIS A. Blood clots: Superficial fragments of papillary urothelial carcinoma. Numerous blood clots. B. Bladder tumor, transurethral resection: Papillary urothelial carcinoma, invasive. See cancer summary in the comment section. SJ:richa 11/28/2023 COMMENT B. BLADDER CANCER (TUR) SUMMARY Procedure: Transurethral resection of bladder tumor (TURBT) Tumor site: Not specified Histologic type: Papillary urothelial carcinoma, invasive Associated epithelial lesions: None identified Histologic grade: Low grade (1/3) Tumor configuration: Papillary and endophytic Muscularis propria presence: Muscularis propria (detrusor muscle) is present and free of tumor. Lymphvascular invasion: Not identified Tumor extension: Tumor invades the lamina propria (subepithelial connective tissue). Additional pathologic findings: Chronic inflammation and cystitis cystica. - Numerous blood clots. PATHOLOGIC STAGE: pT1 pNx pMx The above summary is in compliance with [employer] (CAP) Cancer Protocols Checklist and [place] Joint Committee on Cancer (AJCC), Staging Manual, 8th Ed. Please make reference to previous specimens ([id number]) urinary bladder tumor, TUR with diagnosis of papillary urothelial carcinoma and ([id number]) bladder, biopsy with diagnosis of noninvasive papillary urothelial carcinoma, and ([id number]) bladder, biopsy with diagnosis of papillary urothelial carcinoma, grade 1/3. Case has been reviewed in consultation with Dr. Baldwin who concurs with the above diagnosis. IDC:AM Patient Age/Sex Location Account Attending Physician LEILANI GRIDER 68/M ICU [id number] Dr. Breann Graham MD MICROSCOPIC DESCRIPTION Slides are reviewed. GROSS DESCRIPTION A - Received in fixative is one container labeled with the patient's name and designated blood clot. The specimen consists of multiple fragments of blood clots measuring in aggregate 7.0 x 5.0 x 2.0 cm. A few fragments of christian soft tissue are noted. The rest of the specimen entirely consists of blood clot. Substation Technician tissue is submitted in two cassettes as follows: 1?christian soft tissue, 2 - blood clots. B - Received in fixative is one container labeled with the patient's name and designated bladder tumor. The specimen consists of multiple irregular fragments of christian soft tissue mixed with blood clot that in aggregate measure 5.0 x 3.0 x 0.7 cm. The entire specimen is submitted in five cassettes. / STEFAN:richa 11/27/2023 TC:0 CPT: 22597, 51021 Patient Age/Sex Location Account Attending Physician LEILANI GRIDER /[facility] [id number] Dr. Breann Graham MD Signed (signature on file) Dr. Ward Drake MD 11/28/23 1517 [facility] Comment on above: Performed By: #### P SUIV ####[facility] [address] [place], [address] BRCon 11-26-2023 RC Normal [facility] Comment on above: Result Comment: [id number] AN RC TRANSFUSED 11/26/23 1420 [id number] AN RC TRANSFUSED 11/26/23 1617 [id number] AN RC TRANSFUSED 11/26/23 1822 Performed By: #### B RC, BTS ####[facility] [address] [place], [address] Result Comment: [id number] AP RC TRANSFUSED 11/27/23 1621 [id number] AP RC TRANSFUSED 11/27/23 1436 Performed By: #### L 500.2500, L100.0100 #### [facility] [address] [place], [address] Basic Metabolic Profile (BMP )on 11-26-2023 BUN/CRE 21.4 RATIO High 10-20 [facility] Comment on above: Performed By: #### L 500.2500, L100.0100 #### [facility] [address] [place], [address] CA,Total 8.3 mg/dL Low 8.5-10.1 [facility] Comment on above: Performed By: #### L 500.2500, L100.0100 #### [facility] [address] [place], [address] Chloride [Moles/Vol] 112 mmol/L High 98-107 [facility] Comment on above: Performed By: #### L 500.2500, L100.0100 #### [facility] [address] [place], [address] CO2 [Moles/Vol] 24.0 mmol/L Normal 21.0-32.0 [facility] Comment on above: Performed By: #### L 500.2500, L100.0100 #### [facility] [address] [place], [address] Creatinine [Mass/Vol] 1.03 mg/dL Normal 0.70-1.30 [facility] Comment on above: Result Comment: The validity of the calculated GFR GFRAA in patients over 70 years has not been determined. Clinical correlation is essential. Performed By: #### L 500.2500, L100.0100 #### [facility] [address] [place], [address] ECRCL 70.60 ml/min Normal [facility] Comment on above: Performed By: #### L 500.2500, L100.0100 #### [facility] [address] [place], [address] EST GFR - AA 93 mL/min Normal >60 [facility] Comment on above: Result Comment: Afri can Indian GFR Calc Performed By: #### L 500.2500, L100.0100 #### [facility] [address] [place], [address] GAP 6 Normal 5-15 [facility] Comment on above: Performed By: #### L 500.2500, L100.0100 #### [facility] [address] [place], [address] GFR/1.73 sq M.predicted among non-blacks MDRD (S/P/Bld) [Vol rate/Area] 77 mL/min/{1.73_m2} Normal >60 [facility] Comment on above: Result Comment: Non- GFR Calc Performed By: #### L 500.2500, L100.0100 #### [facility] [address] [place], [address] Glucose [Mass/Vol] 110 mg/dL High 74-106 [facility] Comment on above: Result Comment: Fast ing Glucose result from 100 to 125 mg/dL suggests IMPAIRED HOMEOSTASIS per A.D.A. criteria. Performed By: #### L 500.2500, L100.0100 #### [facility] [address] [place], [address] Potassium [Moles/Vol] 4.2 mmol/L Normal 3.5-5.1 [facility] Comment on above: Performed By: #### L 500.2500, L100.0100 #### [facility] [address] [place], [address] Sodium [Moles/Vol] 142 mmol/L Normal 136-145 [facility] Comment on above: Performed By: #### L 500.2500, L100.0100 #### [facility] [address] [place], [address] Urea nitrogen [Mass/Vol] 22 mg/dL High 7-18 [facility] Comment on above: Performed By: #### L 500.2500, L100.0100 #### [facility] [address] [place], [address] Basophil percentageOrdered B y: Susana Durham on 11-26-2023 Basophil percentage 10-25 SEEN /hpf 0-5 [facility] Bilirubin Test strip Ql (U)O rdered By: Susana Durham on 11-26-2023 Bilirubin Ql (U) Negative Negative [facility] Blood schistocytes detection by light microscopyOrdered By: Susana Durham on 11-26-2023 Schistocytes LM Ql (Bld) 2+ [facility] Consultation - Urologyon Consultation - Urology [facility] Medical Records Department [address] [place] [address] Consultation - Urology 11/26/23 1309 MR#: [id number] Acct: [id number] Name: LEILANI GRIDER Rep #: [id number] : 1955 68 From: Freddie Acevedo MD PCP: LINDA Sanchez Status:REG ER Location: ED HPI Consult Data Date of Consult: 11/26/23 HPI Narrative Reason for Consultation: bleeding bladder mas HPI Narrative: LEILANI GRIDER, is a 68 M who know to have bladder mass presents with low Hct admitted to hospitalist for anemia acute, plan to do surgery TURBT of bladder mass on Sunday. [facility] Medical History (Updated 11/26/23 @ 12:14 by DEBBI Nunez) Alcohol use Arthritis Hearing loss, left Hearing loss, right Smoker Wears glasses Home Medications tamsulosin 0.4 mg capsule 0.4 mg PO QHS PROSTATE 11/26/23 [History Last Taken Unknown] Allergy/AdvReac Type Severity Reaction Status Date / Time No Known Allergies Allergy Verified 11/26/23 10:57 Surgical History History of transurethral resection of bladder tumor (TURBT) Hx of hernia repair Hx of surgical amputation of finger Hx of surgical procedure Social History (Updated 05/26/21 @ 15:13 by Faustino Munoz) Smoking Status: Light Smoker (<10/day) Lab / Micro Data 11/26/23 11:25 11/26/23 11:25 Labs: Laboratory Results - last 24 hr 11/26/23 11:25: WBC 5.0, RBC 2.41 L, Hgb 4.3 L*, Hct 15.5 L, MCV 64.3 L, MCH 17.8 L, MCHC 27.7 L, RDW Std Deviation 50.4 H, RDW Coeff of Malgorzata 22.5 H, Plt Count 329, MPV 9.3, Immature Gran % (Auto) 0.200, Neut % (Auto) 59.0, Lymph % (Auto) 20.6, Ector % (Auto) 13.2 H, Eos % (Auto) 6.0 H, Baso % (Auto) 1.0, Absolute Neuts (auto) 2.9, Absolute Lymphs (auto) 1.03, Nucleated RBC % 0.4, Diff Path Review May foll, Hypochromasia 3+, Anisocytosis 2+, Tear Drop Cells 1+, Ovalocytes 1+, Schistocytes 2+ H, Sodium 142, Potassium 4.2, Chloride 112 H, Carbon Dioxide 24.0, Anion Gap 6, BUN 22 H, Creatinine 1.03, Estim Creat Clear Calc 70.60, Est GFR (MDRD) Af Amer 93, Est GFR (MDRD) Non-Af 77, BUN/Creatinine Ratio 21.4 H, Glucose 110 H, Calcium 8.3 L 11/26/23 12:06: Crossmatch See Detail 11/26/23 12:55: Urine Color Red, Urine Clarity Turbid, Urine pH 6.5, Ur Specific Irving 1.015, Urine Protein 500 H, Urine Glucose (UA) Normal, Urine Ketones 5 H, Urine Occult Blood 250 H, Urine Nitrite Positive H, Urine Bilirubin Negative, Urine Urobilinogen 1 H, Ur Leukocyte Esterase 100 H 11/26/23 1310 Cosigner Signature (if applicable): CC: LINDA Delgado; Dr. Freddie Acevedo MD Signed Normal [facility] Emergency Department Summary on 11-26-2023 Emergency Department Summary [facility] Medical Records Department [address] [place] [address] Emergency Department Summary 11/26/23 MR#: [id number] Acct: [id number] Name: LEILANI GRIDER Rep #: [id number] : 1955 68 From: Susana WERNER PCP: LINDA Sanchez Status:ADM IN Location: ICU [id number] HPI History of Present Illness Chief Complaint: General Illness Narrative Narrative: 68-year-old male has a history of a bladder tumor and presents with Slater catheter complications. He started having this issue in [address] Acevedo. He has had multiple cystoscopies for evaluation of blood clots and tumor resection. A new Slater catheter was placed on and since then he has had daily issues with blood clots and clogging and he has to irrigate at home every day. He saw Dr. Acevedo after Humberto who replaced the Slater but he still has the same issue. Over the last few weeks he has felt generally weak and tired and when he called the urology office today they recommended he come in for evaluation. He has no fever or chills. No chest pain, shortness of breath, or syncope. His urine is gross hematuria. He is not on blood thinners or aspirin. He also complains of a few weeks of bilateral leg swelling worse on the right. They feel tight and uncomfortable but not necessarily painful. He has a history of abdominal blood clots and was on Eliquis for this in the past but no history of extremity DVT. [facility] Medical History (Updated 11/26/23 @ 14:31 by DEBBI Nunez) Alcohol use Arthritis Hearing loss, left Hearing loss, right Smoker Wears glasses Home Medications tamsulosin 0.4 mg capsule 0.4 mg PO QHS PROSTATE 11/26/23 [History Last Taken Unknown] Allergy/AdvReac Type Severity Reaction Status Date / Time No Known Allergies Allergy Verified 11/26/23 10:57 Surgical History History of transurethral resection of bladder tumor (TURBT) Hx of hernia repair Hx of surgical amputation of finger Hx of surgical procedure Social History (Updated 05/26/21 @ 15:13 by Faustino Munoz) Smoking Status: Light Smoker (<10/day) ROS ROS ED ROS Narrative Constitutional: Positive for malaise. CVS: Negative for palpitations, chest pain, syncope. Respiratory: Negative for shortness of breath, cough. GI: Negative for abdominal pain, nausea, vomiting. EXAM Physical Exam Narrative Exam Narrative: CONST: Patient sitting in no acute distress. EYES: Normal inspection. ENT: Normal inspection, moist mucous membranes. NECK: Normal inspection. RESP: No respiratory distress, faint expiratory wheeze throughout.. CVS: Regular rate and rhythm, no murmur, no gallop. ABD: Soft and nontender, no guarding or rebound, nondistended. Slater catheter leg bag filled with bright red blood. SKIN: Color normal, no rash, warm, dry, intact. EXTREMITIES: Mild edema of both feet right greater than left, no skin changes, no calf tenderness or palpable cords. Full range of motion of all joints, 2+ DP pulses. NEURO: Oriented x4. PSYCH: Normal affect. Const Vital Signs: 11/26/23 10:57 11/26/23 11:31 Temperature 97.9 F Temperature Source Temporal Pulse Rate 101 H Respiratory Rate 24 H Respiratory Effort Short of Breath Respiratory Pattern Normal Blood Pressure 138/66 H Blood Pressure Mean 90 Pulse Ox 100 Oxygen Delivery Method Room Air Physical Exam Const Vital Signs: 11/26/23 10:57 11/26/23 11:31 Temperature 97.9 F Temperature Source Temporal Pulse Rate 101 H Respiratory Rate 24 H Respiratory Effort Short of Breath Respiratory Pattern Normal Blood Pressure 138/66 H Blood Pressure Mean 90 Pulse Ox 100 Oxygen Delivery Method Room Air MDM MDM MDM Narrative Medical decision making narrative: History gathered from: Patient and spouse Patient has indwelling Slater catheter presenting with continuous hematuria, clogging from clots, and is scheduled for bladder tumor surgery with Dr. Acevedo. He is feeling weak and tired. Heart rate is 101 otherwise normal vital signs. His exam is fairly unremarkable except for mild right leg/foot edema. Distal pulses intact. No palpable cords. Hemoglobin is 4.3 with normal WBC and platelets. He has no prior for comparison but I suspect continues gross hematuria has caused his anemia and fatigue. BMP is unremarkable. I ordered a transfusion of 3 units PRBCs. UA is consistent with infection so was cultured and treated with Rocephin. I consulted Dr. Acevedo who agreed with transfusion and recommended admission to the medical team. Regarding lower extremity edema, bilateral leg ultrasounds are negative for DVT. Case was discussed with the hospitalist for admission. I have personally performed a face to (more content not included)... Normal [facility] Ferritinon 11-26-2023 Ferritin [Mass/Vol] 2 ng/mL Low 26-388 [facility] Comment on above: Order Comment: Has Arvind joel had X-rays with Contrast this admission? NN Performed By: #### L 500.2500, L100.0100 #### [facility] [address] [place], [address] Folates, (Folic Acid)on 11-06 FOLATES 6.30 ng/mL Normal 3.1-55.4 [facility] Comment on above: Order Comment: Has Arvind joel had X-rays with Contrast this admission? NN Performed By: #### L 500.2500, L100.0100 #### [facility] [address] [place], [address] H AND P Exam - Hospitaliston 11-26-2023 H&P Exam - Hospitalist [facility] Medical Records Department [address] [place] [address] H P Exam - Hospitalist 11/26/23 1307 MR#: [id number] Acct: [id number] Name: LEILANI GRIDER Rep #: [id number] : 1955 68 From: Ervin Anderson DO PCP: LINDA Sanchez Status:ADM IN Location: ICU [id number] HPI - General General Date of Admission: 11/26/23 Date of Service: 11/26/23 Chief Complaint: Worsening fatigue and weakness HPI Narrative LEILANI GRIDER, is a 68 M who presented to [facility] ED on 11/26/2023 with worsening fatigue and weakness. Patient seen at bedside in the ED, present. Patient has known history of bladder cancer, follows with Dr. Acevedo in the office. Was diagnosed with bladder cancer back in 2020. Was determined to be a slow-growing bladder cancer at that time, no intervention required to this point. However, patient began noticing worsening hematuria around [place] time and went to the [facility] ED for further evaluation. He had a Slater catheter placed there and saw Dr. Acevedo in the office a few days later. Patient states that Dr. Acevedo performed a cystoscopy to further evaluate his known bladder mass, and plan at that time was to continue the Slater catheter and have surgery with Dr. Acevedo at the end of November for tumor excision. However, he has had significant bleeding and clot formation in the Slater catheter over the last week or so, and over the last several days he has been much more fatigued and weak than his baseline. 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 However over the last 3 days, he has primarily been in bed sleeping due to his fatigue. He has noticed moderate shortness of breath with exertion as well. Denies any chest pain with exertion. Denies any fevers or chills. Denies any abdominal pain or discomfort. He has continued to have good appetite. He is also noticed that his right leg seems a bit more swollen than his left leg, and he has mild pain in the right leg. He otherwise has no acute concerns today. [facility] Medical History (Updated 11/26/23 @ 14:[address] Ervin Anderson DO) Alcohol use Arthritis Hearing loss, left Hearing loss, right Smoker Wears glasses Home Medications tamsulosin 0.4 mg capsule 0.4 mg PO QHS PROSTATE 11/26/23 [History Last Taken Unknown] Allergy/AdvReac Type Severity Reaction Status Date / Time No Known Allergies Allergy Verified 11/26/23 10:57 Surgical History History of transurethral resection of bladder tumor (TURBT) Hx of hernia repair Hx of surgical amputation of finger Hx of surgical procedure Social History (Updated 05/26/21 @ 15:13 by Faustino Munoz) Smoking Status: Light Smoker (<10/day) ROS Constitutional Constitutional: Reports fatigue, malaise and weakness; Denies chills or fever(s) Eyes Eyes: Denies change in vision Cardiovascular Cardiovascular: Reports dyspnea on exertion; Denies chest pain, lightheadedness or orthopnea Respiratory/Chest Respiratory/Chest: Denies cough, shortness of breath at rest or wheezing Gastrointestinal Gastrointestinal: Denies abdominal pain, constipation, diarrhea, nausea or vomiting Genitourinary Genitourinary: Reports hematuria Musculoskeletal Musculoskeletal: Denies arthralgias or back pain Neurologic Neurologic: Denies focal weakness, headache(s) or numbness Vital Signs Vital Signs Vital Signs: 11/26/23 10:57 11/26/23 11:31 Temperature 97.9 F Temperature Source Temporal Pulse Rate 101 H Respiratory Rate 24 H Respiratory Effort Short of Breath Respiratory Pattern Normal Blood Pressure 138/66 H Blood Pressure Mean 90 Pulse Ox 100 Oxygen Delivery Method Room Air Weight Weight: 81.193 kg Body Mass Index (BMI) 28.8 Physical Exam Const alert, oriented x3, no apparent distress and average body habitus Constitutional Narrative: Pleasant elderly male, pale and fatigued appearing, otherwise sitting up comfortably in bed, conversing normally, no acute distress. General Appearance: cooperative and comfortable HEENT normocephalic, head/scalp atraumatic and nasal mucous membranes and turbinates normal HEENT Narrative: Hard of hearing bilaterally. Eyes PERRL, EOMs intact bilaterally and conjunctivae normal Neck full ROM, no lymphadenopathy and supple Lymph Lymphatic: no lymphadenopathy noted Chest inspection of chest normal Resp normal respiratory effort, normal air movement, no use of accessory muscles and clear to auscultation bilaterally Cardio regular rate, regular rhythm, no murmurs and peripheral pulses 2+ throughout GI normal to inspection, nondistended, normoactive bowel sounds, soft to palpation, non-tender and non- distended Narrative: Dark red blood noted in (more content not included)... Normal [facility] Iron measurement (mass/mass) Ordered By: Ervin Anderson on 11-26-2023 Iron (Unsp spec) [Mass/Mass] 11 ug/dL 65-175 [facility] Iron+Iron Binding Capacityon 11-26-2023 Iron [Mass/Vol] 11 ug/dL Low 65-175 [facility] Comment on above: Order Comment: Has Arvind joel had X-rays with Contrast this admission? NN Performed By: #### L 500.2500, L100.0100 #### [facility] [address] [place], [address] IRON SATURATION 2.4 Low 15.0-55.0 [facility] Comment on above: Order Comment: Has Arvind joel had X-rays with Contrast this admission? NN Performed By: #### L 500.2500, L100.0100 #### [facility] [address] [place], [address] TIBC 455 ug/dL High 250-450 [facility] Comment on above: Order Comment: Has Arvind joel had X-rays with Contrast this admission? NN Performed By: #### L 500.2500, L100.0100 #### [facility] [address] [place], [address] Ketones Test strip Ql (U)Ord ered By: Susana Durham on 11-26-2023 Ketones Ql (U) 5 mg/dl Negative [facility] - Chemistry and C hemistry - challengeOrdered By: Ervin Anderson on 11-26-2023 Cobalamin (Vitamin B12) [Mass/Vol] 407 pg/mL 211-911 [facility] Ferritin [Mass/Vol] 2 ng/mL 26-388 [facility] Mucus LM Ql (Urine sed)Order ed By: Susana Durham on 11-26-2023 Mucus Ql (Urine sed) 0 SEEN /hpf [facility] Nitrite Test strip Ql (U)Ord ered By: Susana Durham on 11-26-2023 Nitrite Ql (U) Positive Negative [facility] No Panel InformationOrdered By: Susana Durham on 11-26-2023 Urine RBC 50-100 SEEN /hpf 0-5 [facility] No Panel InformationOrdered By: Ervin Anderson on 11-26-2023 Folate 6.30 ng/mL 3.1-55.4 [facility] Total Iron Binding Capacity 455 ug/dL 250-450 [facility] Ovalocyte detectionOrdered B y: Susana Durham on 11-26-2023 Ovalocytes LM Ql (Bld) 1+ [facility] Protein Test strip Ql (U)Ord ered By: Susana Durham on 11-26-2023 Protein Ql (U) 500 mg/dl Negative [facility] Review by pathologistOrdered By: Susana Durham on 11-26-2023 Pathologist review Morgan (Unsp spec) [Interp] Reviewed [facility] Comment on above: Previous reported re sult: [facility] Edited by: RGOBRIANA on 11/28/23:1426Severe Microcytic anemia.Clinical correlation necessary.Ward Drake M.D. 11/28/23 AMENDED REPORT 11/28/23 1426 PATH REV previously reported as: [facility] Serum or plasma iron saturat ion measurement (mass fraction)Ordered By: Ervin Anderson on 11-26-2023 Iron saturation [Mass fraction] 2.4 % 15.0-55.0 [facility] Squamous epithelial cells de tection in urine sediment by light microscopyOrdered By: Susana Durham on 11-26-2023 Epithelial cells.squamous LM Ql (Urine sed) 0 SEEN /hpf 0-5 [facility] Teardrop cell detectionOrder ed By: Susana Durham on 11-26-2023 Dacrocytes LM Ql (Bld) 1+ [facility] Type AND Screenon 11-26-2023 ABO and Rh group Nom (Bld) Blood group A Rh(D) positive Normal [facility] Comment on above: Order Comment: CMV N EG? NNumber of units to transfuse: 3Reason for Ordering Blood: AcuteAre the blood/blood products to be transfused? YIs the patient having/had surgery? NHas pt arrived? YNWhen ReadyNYA Performed By: #### B RC, BTS ####[facility] [address] [place], [address] Urinalysis, Completeon 11-26 BACTERIA 2+ /hpf Normal None Seen [facility] Comment on above: Order Comment: COLOR OF URINE MAY AFFECT DIPSTICK RESULTS.EVP OPERATIONS TO SPECIFY Performed By: #### L 400.0001 ####[facility] [address] [place], [address] RBC 50-100 SEEN Normal 0-5 [facility] Comment on above: Order Comment: COLOR OF URINE MAY AFFECT DIPSTICK RESULTS.EVP OPERATIONS TO SPECIFY Performed By: #### L 400.0001 ####[facility] [address] [place], [address] WBC 10-25 SEEN Normal [address] [place] [address] Comment on above: Order Comment: COLOR OF URINE MAY AFFECT DIPSTICK RESULTS.EVP OPERATIONS TO SPECIFY Performed By: #### L 400.0001 ####[facility] [address] [place], [address] EPI,SQUAMOUS 0 SEEN Normal [address] [place] [address] Comment on above: Order Comment: COLOR OF URINE MAY AFFECT DIPSTICK RESULTS.EVP OPERATIONS TO SPECIFY Performed By: #### L 400.0001 ####[facility] [address] [place], [address] Mucus Ql (Urine sed) 0 SEEN Normal [facility] Comment on above: Order Comment: COLOR OF URINE MAY AFFECT DIPSTICK RESULTS.EVP OPERATIONS TO SPECIFY Performed By: #### L 400.0001 ####[facility] [address] [place], [address] Urine blood detectionOrdered By: Susana Durham on 11-26-2023 RBC Ql (U) 250 /ul Negative [facility] Urine clarityOrdered By: Deidra Durham on 11-26-2023 Clarity (U) Turbid Clear [facility] Urine color determinationOrd ered By: Susana Durham on 11-26-2023 Color (U) Red Yellow [facility] Urine glucose detectionOrder ed By: Susana Durham on 11-26-2023 Glucose Ql (U) Normal mg/dl Normal [facility] Urine leukocyte esterase det ection by dipstickOrdered By: Susana Durham on 11-26-2023 Leukocyte esterase Test strip Ql (U) 100 /ul Negative [facility] Urine pHOrdered By: Susana tucker on 11-26-2023 pH (U) 6.5 [pH] 5.0 - 8.0 [facility] Urine sediment bacteria coun t by microscopy (number/high power field)Ordered By: Susana Durham on 11-26-2023 Bacteria LM.HPF (Urine sed) [#/Area] 2 /[HPF] None Seen [facility] Urine specific gravity measu rementOrdered By: Susana Durham on 11-26-2023 Specific gravity (U) [Rel density] 1.015 1.002-1.030 [facility] Urine urobilinogen measureme ntOrdered By: Susana Durham on 11-26-2023 Urobilinogen Ql (U) 1 mg/dl Normal [facility] Venous Duplex US - Walter Extre mon 11-26-2023 Venous Duplex US - Walter Extrem [facility] [address] [place] [address] Venous Duplex US - Walter Extrem 11/26/23 1120 MR#: [id number] Acct: [id number] Name: LEILANI GRIDER Rep #: [id number] : 1955 68 From: Dennis Delatorre MD Attending Dr: Dr. Ervin Anderson, DO Status : ADM IN Ordering Dr: Susana Durham Date: 11/26/23 Location: ICU Sex: M C Admitted: 11/26/23 Reason For Study: Bilateral leg pain RIGHT LEFT GSV is normal. GSV is normal. CFV is compressible, spontaneous, phasic, CFV is compressible, spontaneous, phasic, competent and demonstrates normal competent, and demonstrates normal augmentation. augmentation. FV is compressible, spontaneous, phasic, FV is compressible, spontaneous, phasic, competent and demonstrates normal competent and demonstrates normal augmentation. augmentation. POP V is compressible, spontaneous, phasic, POP V is compressible, spontaneous, phasic, competent and demonstrates normal competent and demonstrates normal augmentation. augmentation. T/P Trunk is compressible. T/P Trunk is compressible. PTV is compressible. PTV is compressible. RT PerV is compressible. LT PerV is compressible. Multiple lymph nodes noted in the right Lymph node noted in the left groin. groin. Procedure This is a venous duplex using B-mode, color flow and spectral Doppler. Exam performed portable in ED. A preliminary report was called and/or faxed to ED. VL/Venous Duplex US - Walter Extrem Interpretation Summary No evidence for acute deep venous thrombosis bilateral lower extremities with patent and compressible bilateral great saphenous veins. Right groin 3.5 x 0.82 cm lymph node Right groin 3.21 x 1.01 cm lymph node Left groin 3.22 x 0.96 cm lymph node Ordering Physician: Susana Durham Referring Physician: Celina Delgado Performed By: Letty Desai RVT 11/26/23 3705 Date Dennis Delatorre MD CC: LINDA Delgado; Dr. Ervin Anderson DO; DEBBI Nunez Date Dictated: 11/26/23 1120 Date Transcribed: 11/26/231454 Groundhand: Signed Normal [facility] Vitamin B12on 11-26-2023 Cobalamin (Vitamin B12) [Mass/Vol] 407 pg/mL Normal 211-911 [facility] Comment on above: Performed By: #### L 500.2500, L100.0100 #### [facility] [address] [place], [address] Basophil percentageOrdered B y: Freddie Acevedo on 11-06-2023 Creatinine [Mass/Vol] 1.4 mg/dL 0.70-1.30 [facility] CREATININE FINGERSTICKon Creatinine [Mass/Vol] 1.4 mg/dL High 0.70-1.30 [facility] Comment on above: Performed By: #### L 500.2500, L100.0100 #### [facility] [address] [place], [address] GFR/1.73 sq M.predicted among non-blacks MDRD (S/P/Bld) [Vol rate/Area] 52.0000 mL/min/{1.73_m2} Low >60 [facility] Comment on above: Performed By: #### L 500.2500, L100.0100 #### [facility] [address] [place], [address] CT Abd/Pelvis W/WO Contrasto n 11-06-2023 CT Abd/Pelvis W/WO Contrast [facility] Imaging Services [address] [place] [address] CT Abd/Pelvis W/WO Contrast MR#: [id number] Acct: [id number] Name: LEILANI GRIDER Rep #: [id number] : 1955 M 68 From: Bennett garcia MD PCP: LINDA Sanchez Status: REG CL Study: CT Abd/Pelvis W/WO Contrast Date of Exam: 12/29 Exam# [id number] Ordering Dr: Freddie Acevedo MD [id number] EXAM: CT ABDOMEN AND PELVIS WITHOUT AND WITH INTRAVENOUS CONTRAST CLINICAL INDICATION: HEMATURIA . Bladder cancer. TECHNIQUE: Helically acquired images were obtained of the abdomen and pelvis without and with intravenous contrast. This CT exam was performed using one or more of the following dose reduction techniques: automated exposure control, adjustment of the mA and/or kV according to patient size, and/or use of iterative reconstruction technique. CONTRAST: IV 100mL Isovue-300 RADIATION DOSE: CTDIvol = 15.28 mGy, DLP = 1849.50 mGy-cm COMPARISON: No relevant prior studies available. FINDINGS: LOWER THORAX: Unremarkable. Lung bases are clear. No cardiomegaly. No significant pericardial effusion. ABDOMEN: LIVER: There is hepatomegaly. GALLBLADDER AND BILE DUCTS: Unremarkable. No calcified gallstones. No gallbladder distention or wall edema. No intra- or extrahepatic biliary ductal dilation. PANCREAS: Unremarkable. No focal cystic or solid mass. SPLEEN: Unremarkable. Normal size without focal cystic or solid mass. ADRENALS: Unremarkable. No nodules. KIDNEYS AND URETERS: Unremarkable. Normal renal size and position. No hydronephrosis. STOMACH AND BOWEL: Evaluation of the GI tract is limited by absence of oral contrast. Cannot exclude stomach wall thickening. No dilated loops of bowel or evidence for obstruction. Cannot exclude segmental thickening of the louis of the small or large bowel. Cannot exclude enteritis or colitis. Moderate diffuse fecal retention. Diverticulosis without definite diverticulitis. Appendix within normal limits. PELVIS: APPENDIX: No evidence of acute appendicitis. BLADDER: Markedly abnormal bladder. There is a Slater catheter. Bladder is incompletely distended but even so there appears to be marked wall thickening and cannot exclude intraluminal contents which could be blood or mass. Apparently patient is known to have bladder cancer, and cystoscopy should be considered. 2.6 cm diverticulum of the left side of the bladder. REPRODUCTIVE: Unremarkable as visualized. No mass. ABDOMEN and PELVIS: INTRAPERITONEAL SPACE: Unremarkable. No ascites or other fluid collection. No free air. BONES/JOINTS: Unremarkable. No suspicious lytic or blastic abnormality. SOFT TISSUES: Unremarkable. No discrete abdominal or pelvic wall hernia. VASCULATURE: Prominent calcified plaque of the aorta and iliac arteries. No aneurysm. LYMPH NODES: Unremarkable. No enlarged lymph nodes. CT/CT Abd/Pelvis W/WO Contrast IMPRESSION: Abnormal bladder suboptimally evaluated on this noncontrast exam. Marked diffuse wall thickening and possible intraluminal contents. Cystoscopy should be considered. Electronically Signed: Bennett Owens MD at 20:01 EST , CC: LINDA Delgado; Dr. Freddie Acevedo MD Groundhand: Signed Normal [facility] - Chemistry and C hemistry - challengeOrdered By: Freddie Acevedo on 11-06-2023 GFR/1.73 sq M.predicted among non-blacks MDRD (S/P/Bld) [Vol rate/Area] 52.0000 mL/min/{1.73_m2} >60 [facility] .Urinalysis Microscopic (AO) on 10-29-2023 UA Amorphus 1+ /hpf Normal [facility] ([place]) Comment on above: Performed By: #### A FRANC, LIPID, ADIFF, CBC, TSH, CMP, MORPH, GFR, PSA #### [address] [address] UA Bacteria 1+ /hpf Abnormal [facility] ([place]) Comment on above: Performed By: #### A FRANC, LIPID, ADIFF, CBC, TSH, CMP, MORPH, GFR, PSA #### [address] [address] UA RBC LOADED Abnormal None Seen [facility] ([place]) Comment on above: Performed By: #### A FRANC, LIPID, ADIFF, CBC, TSH, CMP, MORPH, GFR, PSA #### [id number] [place], [place] [address] UA Squam Epithelial None Seen Normal None Seen [facility] ([place]) Comment on above: Performed By: #### A FRANC, LIPID, ADIFF, CBC, TSH, CMP, MORPH, GFR, PSA #### [address] [address] UA WBC 0-5 Abnormal None Seen [facility] ([place]) Comment on above: Performed By: #### A FRANC, LIPID, ADIFF, CBC, TSH, CMP, MORPH, GFR, PSA #### [address] [address] LABORATORYOrdered By: Sanjuana Espinosa on 12-25-2023 Appearance (U) Slightly Cloudy *ABN* (10/29/23 5:08 PM) Invalid Interpretation Code Clear AO Auto Urine SS Bacteria LM.HPF (Urine sed) [#/Area] 1 /[HPF] Invalid Interpretation Code AO Auto Urine SS Bilirubin Ql (U) Small *ABN* (10/29/23 5:08 PM) Invalid Interpretation Code Negative AO Auto Urine SS Color (U) Brown *ABN* (10/29/23 5:08 PM) Invalid Interpretation Code AO Auto Urine SS Crystals.amorphous LM.HPF (Urine sed) [#/Area] 1 /[HPF] Normal AO Auto Urine SS Glucose Test strip (U) [Mass/Vol] Negative Normal Negative AO Auto Urine SS Hemoglobin Auto test strip (U) [Mass/Vol] Moderate *ABN* (10/29/23 5:08 PM) Invalid Interpretation Code Negative AO Auto Urine SS Ketones Ql (U) Negative Normal Negative AO Auto Ur ine SS UA Leuk Est Negative (10/29/23 5:08 PM) Normal Negative AO Auto Urine SS UA Nitrite Positive *ABN* (10/29/23 5:08 PM) Invalid Interpretation Code Negative AO Auto Urine SS UA pH 6.5 (10/29/23 5:08 PM) Normal 5.0 - 8.0 AO Auto Urine SS UA Protein 100 mg/dL Invalid Interpretation Code Negative AO Auto Urine SS UA RBC LOADED /HPF Invalid Interpretation Code None Seen AO Auto Urine SS UA Spec Grav >=1.030 *ABN* (10/29/23 5:08 PM) Invalid Interpretation Code 1.015-1.025 AO Auto Urine SS UA Specimen Type Catheter (10/29/23 5:08 PM) Normal AO Auto Urine SS UA Squam Epithelial None Seen /HPF Normal None Seen A O Auto Urine SS UA Urobilinogen 0.2 E.U./dL Normal 0.2-1.0 AO Auto Urine SS WBC LM.HPF (Urine sed) [#/Area] 0-5 /HPF Invalid Interpretation Code None Seen AO Auto Urine SS UAon 10-29-2023 Color (U) Brown Abnormal [facility] ([place]) Comment on above: Performed By: #### A FRANC, LIPID, ADIFF, CBC, TSH, CMP, MORPH, GFR, PSA #### [address] [address] Glucose (U) [Mass/Vol] Negative Normal Negative [facility] ([place]) Comment on above: Performed By: #### A FRANC, LIPID, ADIFF, CBC, TSH, CMP, MORPH, GFR, PSA #### [address] [address] Ketones Ql (U) Negative Normal Negative [facility] ([place]) Comment on above: Performed By: #### A FRANC, LIPID, ADIFF, CBC, TSH, CMP, MORPH, GFR, PSA #### [address] [address] UA Appear Slightly Cloudy Abnormal Clear [facility] [facility] ([place]) Comment on above: Performed By: #### A FRANC, LIPID, ADIFF, CBC, TSH, CMP, MORPH, GFR, PSA #### [address] [address] UA Bili Small Abnormal Negative [facility] ([place]) Comment on above: Performed By: #### A FRANC, LIPID, ADIFF, CBC, TSH, CMP, MORPH, GFR, PSA #### [address] [address] UA Blood Moderate Abnormal Negative [facility] ([place]) Comment on above: Performed By: #### A FRANC, LIPID, ADIFF, CBC, TSH, CMP, MORPH, GFR, PSA #### [address] [address] UA Leuk Est Negative Normal Negative [facility] ([place]) Comment on above: Performed By: #### A FRANC, LIPID, ADIFF, CBC, TSH, CMP, MORPH, GFR, PSA #### [address] [address] UA Nitrite Positive Abnormal Negative [facility] ([place]) Comment on above: Performed By: #### A FRANC, LIPID, ADIFF, CBC, TSH, CMP, MORPH, GFR, PSA #### [address] [address] UA pH 6.5 Normal 5.0 - 8.0 [facility] ([place]) Comment on above: Performed By: #### A FRANC, LIPID, ADIFF, CBC, TSH, CMP, MORPH, GFR, PSA #### [place] [address] UA Protein 100 mg/dL Abnormal Negative [facility] ([place]) Comment on above: Performed By: #### A FRANC, LIPID, ADIFF, CBC, TSH, CMP, MORPH, GFR, PSA #### [place] [address] UA Spec Grav >=1.030 Abnormal 1.015-1.025 [facility] ([place]) Comment on above: Performed By: #### A FRANC, LIPID, ADIFF, CBC, TSH, CMP, MORPH, GFR, PSA #### [place] [address] UA Specimen Type Catheter Normal [facility] ([place]) Comment on above: Performed By: #### A FRANC, LIPID, ADIFF, CBC, TSH, CMP, MORPH, GFR, PSA #### [place] [address] UA Urobilinogen 0.2 E.U./dL Normal 0.2-1.0 [facility] ([place]) Comment on above: Performed By: #### A FRANC, LIPID, ADIFF, CBC, TSH, CMP, MORPH, GFR, PSA #### [place] [address] LABORATORYOrdered By: Adair Michel on 03-30-2022 Albumin BCP dye [Mass/Vol] 3.9 G/dL Invalid Interpretation Code 3.4 - 4.8 G/dL AO ADM SS Albumin/Globulin [Mass ratio] 1.1 {ratio} Invalid Interpretation Code 1.1 - 2.5 ratio AO ADM SS ALP [Catalytic activity/Vol] 96 U/L Invalid Interpretation Code 40 - 135 U/L AO ADM SS ALT With P-5'-P [Catalytic activity/Vol] 56 U/L Invalid Interpretation Code 16 - 63 U/L AO ADM SS AST With P-5'-P [Catalytic activity/Vol] 30 U/L Invalid Interpretation Code 10 - 40 U/L AO ADM SS Bilirubin [Mass/Vol] 0.7 mg/dL Invalid Interpretation Code 0.2 - 1.0 mg/dL AO ADM SS Calcium [Mass/Vol] 8.9 mg/dL Invalid Interpretation Code 8.4 - 10.2 mg/dL AO ADM SS Chloride [Moles/Vol] 104 mmol/L Invalid Interpretation Code 98 - 107 mmol/L AO ADM SS Cholesterol [Mass/Vol] 232 mg/dL Invalid Interpretation Code 0 - 200 mg/dL AO ADM SS Cholesterol in HDL [Mass/Vol] 102 mg/dL Invalid Interpretation Code 40 - 60 mg/dL AO ADM SS Cholesterol in LDL [Mass/Vol] 115 mg/dL Invalid Interpretation Code 0 - 130 mg/dL AO ADM SS CO2 [Moles/Vol] 27 mmol/L Invalid Interpretation Code 23 - 31 mmol/L AO ADM SS Creatinine [Mass/Vol] 1.16 mg/dL Invalid Interpretation Code 0.70 - 1.30 mg/dL AO ADM SS Electrolyte Balance 8.0 mEq/L Invalid Interpretation Code 4.0 - 15.0 mEq/L AO ADM SS Globulin 3.4 G/dL Invalid Interpretation Code AO ADM SS Glucose [Mass/Vol] 122 mg/dL Invalid Interpretation Code 80 - 115 mg/dL AO ADM SS Potassium [Moles/Vol] 4.3 mmol/L Invalid Interpretation Code 3.5 - 5.1 mmol/L AO ADM SS Prostate specific Ag [Mass/Vol] 0.60 ng/mL Invalid Interpretation Code 0.00 - 4.00 ng/mL AO ADM SS Protein [Mass/Vol] 7.3 G/dL Invalid Interpretation Code 6.4 - 8.2 G/dL AO ADM SS Sodium [Moles/Vol] 139 mmol/L Invalid Interpretation Code 136 - 145 mmol/L AO ADM SS Triglyceride [Mass/Vol] 75 mg/dL Invalid Interpretation Code 0 - 150 mg/dL AO ADM SS Urea nitrogen [Mass/Vol] 22 mg/dL Invalid Interpretation Code 7 - 18 mg/dL AO ADM SS Urea nitrogen/Creatinine [Mass ratio] 19 ratio Invalid Interpretation Code 7 - 27 ratio AO ADM SS LABORATORYOrdered By: Paula Rashid on 03-30-2022 Basophil, Absolute 0.1 103/mcL Invalid Interpretation Code 0.0 - 0.2 10^3/mcL AO Workflow SS Basophils/100 WBC (Bld) 1.2 % Invalid Interpretation Code 0.0 - 2.5 % AO Workflow SS Eosinophil, Absolute 0.2 103/mcL Invalid Interpretation Code 0.0 - 0.4 10^3/mcL AO Workflow SS Eosinophils/100 WBC (Bld) 3.3 % Invalid Interpretation Code 0.0 - 7.0 % AO Workflow SS Erythrocyte distribution width (RBC) [Ratio] 14.2 % Invalid Interpretation Code 11.5 - 14.5 % AO Workflow SS Hematocrit (Bld) [Volume fraction] 46.6 % Invalid Interpretation Code 42.0 - 52.0 % AO Workflow SS Hgb 15.3 G/dL Invalid Interpretation Code 14.0 - 18.0 G/dL AO Workflow SS Lymphocyte, Absolute 1.4 103/mcL Invalid Interpretation Code 0.8 - 3.9 10^3/mcL AO Workflow SS Lymphocytes/100 WBC (Bld) 27.3 % Invalid Interpretation Code 10.0 - 50.0 % AO Workflow SS MCH (RBC) [Entitic mass] 29.1 pg Invalid Interpretation Code 27.0 - 31.2 pg AO Workflow SS MCHC 32.8 G/dL Invalid Interpretation Code 31.8 - 35.4 G/dL AO Workflow SS MCV (RBC) [Entitic vol] 88.9 fL Invalid Interpretation Code 80.0 - 94.0 fL AO Workflow SS Monocyte, Absolute 0.5 103/mcL Invalid Interpretation Code 0.2 - 1.0 10^3/mcL AO Workflow SS Monocytes/100 WBC (Bld) 10.3 % Invalid Interpretation Code 1.7 - 13.0 % AO Workflow SS Neutrophil, Absolute 2.9 103/mcL Invalid Interpretation Code 2.9 - 6.2 10^3/mcL AO Workflow SS Neutrophils/100 WBC (Bld) 57.9 % Invalid Interpretation Code 37.0 - 80.0 % AO Workflow SS Platelet 279 103/mcL Invalid Interpretation Code 130 - 400 10^3/mcL AO Workflow SS Platelet mean volume (Bld) [Entitic vol] 6.9 fL Invalid Interpretation Code 7.4 - 10.4 fL AO Workflow SS RBC 5.24 106/mcL Invalid Interpretation Code 4.04 - 6.13 10^6/mcL AO Workflow SS WBC 5.0 103/mcL Invalid Interpretation Code 4.6 - 10.8 10^3/mcL AO Workflow SS LABORATORYOrdered By: SYSTEM SYSTEM on 03-30-2022 GFR 77 ml/min/1.73sqm Invalid Interpretation Code AO Chemistry S GFR Non- 63 ml/min/1.73sqm Invalid Interpretation Code AO Chemistry S Monocyte distribution width Auto (Bld) [Entitic vol] Not Performed 1 *NA* (03/30/22 9:43 AM) Invalid Interpretation Code 0.00 - 20.00 AO Hematology S Comment on above: Result Comment: MDW testing performed only on adult ER patients between the ages of 18-89 years. Vital Signs Date Time Vital Sign Value Performing Clinician Facility 11-29-2023 15:20-0500 Body temperature 98.5 [degF] [employer] Celina Baltes [employer] Work Phone: [facility] 11-29-2023 15:20-0500 Diastolic blood pressure 90 mm[Hg] [employer] Celina Baltes [employer] Work Phone: [facility] 11-29-2023 15:20-0500 Heart rate 87 /min [employer] Celina Baltes [employer] Work Phone: [facility] 11-29-2023 15:20-0500 Respiratory rate 18 /min [employer] Celina Baltes [employer] Work Phone: [facility] 11-29-2023 15:20-0500 SaO2% (BldA) [Mass fraction] 96 % [employer] Celina Baltes [employer] Work Phone: [facility] 11-29-2023 15:20-0500 Systolic blood pressure 114 mm[Hg] [employer] Celina Baltes [employer] Work Phone: [facility] 11-28-2023 07:21-0500 Inhaled oxygen flow rate 2 L/min [employer] Celina Baltes [employer] Work Phone: [facility] 11-27-2023 01:38-0500 Body height 167.64 cm [employer] Celina Baltes [employer] Work Phone: [facility] 11-27-2023 01:38-0500 Body mass index (BMI) [Ratio] 28.8 kg/m2 [employer] Celina Baltes [employer] Work Phone: [facility] 11-27-2023 01:38-0500 Body weight 81.1 kg [employer] Celina Baltes [employer] Work Phone: [facility] 10-29-2023 18:50-0500 Diastolic Blood Pressure Non-Invasive 82 [...] Date Encounter Type Care Provider Facility Start: 10-06-2024 End: 10-09-2024 Evaluation and management of inpatient Dennis Little Facility:[facility] Start: 08-15-2024 End: 08-15-2024 ambulatory Freddie Acevedo Facility:[facility] Start: 02-06-2024 ambulatory CELINA DELGADO [employer] Fa cility:[facility] Start: 12-14-2023 End: 12-19-2023 ambulatory CELINA DELGADO [employer] Facility:[facility] Start: 11-29-2023 Non-patient / Non-visit [employer] R servando Delgado [employer] Work Phone: [facility] Work Phone: Start: 11-28-2023 Non-patient / Non-visit [employer] R servando Aguiartes [employer] Work Phone: [facility] Work Phone: Start: 11-27-2023 Non-patient / Non-visit [employer] R servando Delgado [employer] Work Phone: [facility] Work Phone: Start: 11-27-2023 End: 11-27-2023 ambulatory Ronen Nicole Facility:[facility] Start: 11-27-2023 End: 11-27-2023 Non-patient / Non-visit [employer] Celina Delgado [employer] Work Phone: [facility] Work Phone: Start: 11-26-2023 Non-patient / Non-visit [employer] Rekha Delgado [employer] Work Phone: [facility] Work Phone: Start: 11-26-2023 ambulatory Freddie Acevedo Faci lity:[facility] Start: 11-26-2023 End: 11-29-2023 Evaluation and management of inpatient [employer] Celina Delgado [employer] Work Phone: [facility] Work Phone: Start: 11-26-2023 ambulatory Dennis Delatorre Facility :[facility] Start: 11-26-2023 Non-patient / Non-visit [employer] R servando Delgado [employer] Work Phone: [facility] Start: 11-21-2023 ambulatory Freddie Acevedo Faci lity:[facility] Start: 11-06-2023 End: 11-06-2023 ambulatory [facility] Work Phone: Start: 11-06-2023 End: 11-06-2023 Patient encounter procedure [facility]-Cat Scan, [facility] Work Phone: Start: 11-06-2023 End: 11-06-2023 ambulatory Freddie cAevedo Facility:[facility] Start: 11-02-2023 End: 11-02-2023 Emergency department patient visit CELINA DELGADO [employer] Facility:[facility] Start: 10-29-2023 End: 10-29-2023 Emergency department patient visit CELINA DELGADO [employer] Facility:[facility] Start: 10-29-2023 End: 10-29-2023 Emergency department patient visit DR TROY LAM DO [facility] Start: 04-11-2022 End: 04-11-2022 Patient encounter procedure [facility], Specimen Start: 03-30-2022 End: 03-30-2022 Patient encounter procedure CELINA DELGADO [employer] [facility] Start: 01-05-2022 End: 01-05-2022 Patient encounter procedure [facility], Specimen Procedures Date Procedure Procedure Detail Performing Clinician Start: 11-27-2023 Cysto,Transurethal R esec Bladder,[employer] (Not Applicable) [employer] Celina Delgado [employer] Work Phone: Start: 11-06-2023 Computed tomography of abdomen and pelvis with contrast Finger structure (aroldo dy structure) CELINA DELGADO [employer] Comment on above: partially removed le ft index finger Herniated structure (morphologic abnormality) CELINA DELGADO [employer] Comment on above: x2 Vasectomy CELINA DELGADO APR N[employer] Plan of Treatment Date Care Activity Detail Author Start: 12-05-2023 Blood chemistry [facility] Start: 12-04-2023 Blood chemistry [facility] Start: 12-03-2023 Blood chemistry [facility] Start: 12-02-2023 Blood chemistry [facility] Start: 12-01-2023 Blood chemistry [facility] Start: 11-30-2023 Blood chemistry [facility] Start: 11-29-2023 Patient discharge [facility] Start: 11-28-2023 Application of elastic bandage [facility] Start: 11-28-2023 [facility] Start: 11-27-2023 End: 11-27-2023 Administration of blood product [facility] Start: 11-26-2023 Application of intermittent pneumatic compression device [facility] Start: 11-26-2023 End: 11-26-2023 Following clinical pathway protocol [facility] Start: 11-26-2023 Ambulation without limitation [facility] Start: 11-26-2023 Assessment of risk of venous thromboembolism [facility] Start: 11-26-2023 Insertion of catheter into peripheral vein [facility] Start: 11-26-2023 Oxygen therapy [facility] Start: 11-26-2023 Providing care according to standard [facility] Start: 11-26-2023 [facility] Start: 11-26-2023 Referral to occupational therapist [facility] Start: 11-26-2023 Referral to service [facility] Start: 11-26-2023 Verification routine [facility] Start: 11-26-2023 Urine culture Urine Culture [facility] Start: 11-26-2023 Admission procedure [facility] Start: 11-26-2023 Consultation [facility] Start: 11-26-2023 End: 11-27-2023 [facility] Start: 11-26-2023 Administration of blood product [facility] Anion gap measurement [facility] Anion gap measurement [facility] BUN/Creatinine ratio [facility] BUN/Creatinine ratio [facility] Calcium [Mass/volume ] in Serum or Plasma [facility] Calcium [Mass/volume ] in Serum or Plasma [facility] Carbon dioxide, tota l [Moles/volume] in Serum or Plasma [facility] Carbon dioxide, tota l [Moles/volume] in Serum or Plasma [facility] Chloride [Moles/volu me] in Serum or Plasma [facility] Chloride [Moles/volu me] in Serum or Plasma [facility] Creatinine [Moles/vo lume] in Serum or Plasma [facility] Creatinine [Moles/vo lume] in Serum or Plasma [facility] Erythrocyte mean corpuscular volume determination [facility] Erythrocyte mean corpuscular volume determination [facility] Erythrocyte mean corpuscular volume determination [facility] Erythrocyte mean corpuscular volume determination [facility] Erythrocyte mean corpuscular volume determination [facility] Erythrocyte mean corpuscular volume determination [facility] Glucose [Mass/volume ] in Serum or Plasma [facility] Glucose [Mass/volume ] in Serum or Plasma [facility] Hematocrit [Volume Fraction] of Blood [facility] Hematocrit [Volume Fraction] of Blood [facility] Hematocrit [Volume Fraction] of Blood [facility] Hematocrit [Volume Fraction] of Blood [facility] Hematocrit [Volume Fraction] of Blood [facility] Hematocrit [Volume Fraction] of Blood [facility] Hemoglobin [Mass/vol ume] in Blood [facility] Hemoglobin [Mass/vol ume] in Blood [facility] Hemoglobin [Mass/vol ume] in Blood [facility] Hemoglobin [Mass/vol ume] in Blood [facility] Hemoglobin [Mass/vol ume] in Blood [facility] Hemoglobin [Mass/vol ume] in Blood [facility] Leukocytes [#/volume ] in Blood [facility] Leukocytes [#/volume ] in Blood [facility] Leukocytes [#/volume ] in Blood [facility] Leukocytes [#/volume ] in Blood [facility] Leukocytes [#/volume ] in Blood [facility] Leukocytes [#/volume ] in Blood [facility] Mean corpuscular hemoglobin concentration determination [facility] Mean corpuscular hemoglobin concentration determination [facility] Mean corpuscular hemoglobin concentration determination [facility] Mean corpuscular hemoglobin concentration determination [facility] Mean corpuscular hemoglobin concentration determination [facility] Mean corpuscular hemoglobin concentration determination [facility] Mean corpuscular hemoglobin determination [facility] Mean corpuscular hemoglobin determination [facility] Mean corpuscular hemoglobin determination [facility] Mean corpuscular hemoglobin determination [facility] Mean corpuscular hemoglobin determination [facility] Mean corpuscular hemoglobin determination [facility] Measurement of renal function [facility] Measurement of renal function [facility] Neutrophil count [facility] Neutrophil count [facility] Neutrophil count [facility] Neutrophil count [facility] Neutrophil count [facility] Neutrophil count [facility] Neutrophil percent differential count [facility] Neutrophil percent differential count [facility] Neutrophil percent differential count [facility] Neutrophil percent differential count [facility] Neutrophil percent differential count [facility] Neutrophil percent differential count [facility] Patient Education Hematuria: Pos sible Causes Understanding Bladder Cancer Staging of Bladder Cancer [facility] Work Phone: Patient referral [facility] Work Phone: Platelets [#/volume] in Blood [facility] Platelets [#/volume] in Blood [facility] Platelets [#/volume] in Blood [facility] Platelets [#/volume] in Blood [facility] Platelets [#/volume] in Blood [facility] Platelets [#/volume] in Blood [facility] Potassium [Moles/vol ume] in Serum or Plasma [facility] Potassium [Moles/vol ume] in Serum or Plasma [facility] Red blood cell count [facility] Red blood cell count [facility] Red blood cell count [facility] Red blood cell count [facility] Red blood cell count [facility] Red blood cell count [facility] Red cell distributio n width determination [facility] Red cell distributio n width determination [facility] Red cell distributio n width determination [facility] Red cell distributio n width determination [facility] Red cell distributio n width determination [facility] Red cell distributio n width determination [facility] Sodium [Moles/volume ] in Serum or Plasma [facility] Sodium [Moles/volume ] in Serum or Plasma [facility] Urea nitrogen [Mass/volume] in Serum or Plasma [facility] Urea nitrogen [Mass/volume] in Serum or Plasma [facility] Immunizations Immunization Date Immunization Notes Care Provider [facility] 11-28-2023 Influenza High-Dose Quadrivalent [employer] Celina Delgado [employer] Work Phone: [facility] 07-28-2021 SARS-CoV-2 mRNA (tozinameran) vaccine CELINA DELGADO [employer] [facility] 06-30-2021 SARS-CoV-2 mRNA (tozinameran) vaccine CELINA DELGADO [employer] [facility] Comment on above: Result Comment: 2021: [id number] 10-31-2020 influenza, injectabl e, quadrivalent, preservative free CELINA DELGADO [employer] [facility] 03-01-2017 tetanus toxoid, redu maria d diphtheria toxoid, and acellular pertussis vaccine, adsorbed CELINA DELGADO [employer] [facility] Payers Date Payer Category Payer Self-pay [id number] 2023 Unknown [id number] 2023 Private Health Insurance [facility] [id number] 1955 Unknown [id number] 1955 Unknown [id number] 1955 Unknown [id number] [id number]. 1955 Unknown [id number] Medicare MEDICARE PART A B [id number] Unknown [id number] Unknown [id number] [id number] Unknown [id number] [id number] Unknown [id number] [id number] Unknown [id number] [id number] Unknown [id number] [id number] Unknown [id number] [id number] Unknown [id number] [id number] Unknown [id number] [id number] Unknown [id number] Unknown [id number] Social History Date Type Detail Facility Start: 03-30-2022 End: 10-29-2023 Tobacco smoking status Ex-smoker (finding) [facility] Start: 1955 Sex Assigned At Male [facility] Start: 05-26-2021 End: 11-26-2023 Tobacco smoking status NHIS Unknown if ever smoked [facility] Goals Date Patient Goal Desired Activity /State Functional Status Date Assessment Result Facility 11-29-2023 Functional status [facility]ulates [facility] Work Phone: 10-29-2023 Functional Status Standard Safet y ID band on, Call device within reach, Bed in low position, Wheels locked, Bedside Cart Locked, Visitor at bedside, Safety level maintained [facility] 10-29-2023 Functional Status [facility] Mental Status Date Assessment Result Facility 11-29-2023 Cognitive function Voice/Name [facility] Work Phone: 10-29-2023 Mental Status Orientation Oriented x 4 [facility] 10-29-2023 Mental Status [facility] Clinical Notes 10-29-2023 to 10-09-2024 Note Date & Type Note Facility 10-09-2024 Note [facility] Medical Records Department [address] [place] [address] Discharge Summary 10/09/24 0720 MR#: [id number] Acct: [id number] Name: LEILANI GRIDER Rep #: [id number] : 1955 69 From: Freddie Acevedo MD PCP: LINDA Sanchez Status:ADM IN Location: [facility] [id number] Providers Date of Admission: 10/06/24 Date of Discharge: 10/09/24 Primary Care Physician: LINDA Sanchez Consultations 10/08/24 07:29 Consult: Infectious Disease Routine Consulting Provider: Dennis Little Reason for Consult: Complicated UTI EMERGENT Consult: No MD Notified: Yes Date Notified: 10/08/24 Time Notified: 07:29 Method of Notification: Text Reason For Visit: BLADDER PAIN, BLADDER CANCER Diagnosis Discharge Diagnosis (1) Painful bladder spasm: Status: Acute Code(s): R30.1 - Vesical tenesmus (2) Bladder cancer: Status: Acute Code(s): C67.9 - Malignant neoplasm of bladder, unspecified Medications at Discharge Home Medications acetaminophen 500 mg tablet (Acetaminophen Extra Strength) 1,000 mg PO Q6H PRN pain 08/05/24 ibuprofen 600 mg tablet 600 mg PO Q6H PRN fever or pain #20 tabs 08/15/24 Hospital Course Operations None Summary of Care Provided Minutes Spent on Discharge: 35 Hospital Course: Patient was admitted for severe bladder pain and bladder infection he will go home today with ciprofloxacin we will remove the catheter for voiding trial prior to discharge Physical Exam Const alert and oriented x3 General Appearance: cooperative HEENT normocephalic, head/scalp atraumatic, EAC's normal and TM's normal bilaterally Eyes PERRL and EOMs intact bilaterally Pupil: sluggish Neck no lymphadenopathy, supple and no JVD General: trachea midline Lymph Lymphatic: no lymphadenopathy noted, lymphedema and lymphadenopathy Resp normal respiratory effort, normal air movement and clear to auscultation bilaterally Cardio regular rate, regular rhythm and peripheral pulses 2+ throughout GI soft to palpation, non-tender and non-distended Extremity normal capillary refill and no clubbing, cyanosis or edema General Extremity: no tenderness to palpation of joints or extremities Skin no rashes or lesions noted General Skin Exam: turgor normal Lesions: no lesions Rashes: no rashes Neuro CN's II-XII intact bilaterally Speech: speech normal Motor Exam: strength 5/5 throughout; Negative for general weakness Psych thought process normal, cooperative and affect normal Appearance: appropriate Weight / BMI Weight Weight: 80 kg Body Mass Index (BMI) 28.4 ABG / Lab / Microbiology Data 10/06/24 17:15 10/06/24 17:15 Microbiology: Microbiology 10/06/24 17:15 Interface Orders Urine Culture - Preliminary Culture exhibits no growth. D/C Instructions Discharge Diet: No restrictions Discharge Activity: Return to Normal Activity Call your doctor if you observe: Fever of 101 or Higher DC O2, CPAP, BIPAP Needs Additional Home O2 Discharge instructions: No DC home with Oxygen: No Please Follow Up With: Freddie Acevedo MD When: keep appt. Meaningful Use Info Meaningful Use Meaningful Use Diagnoses (Choose all that apply): None applicable Ischemic Stroke Statin Dosing Therapy Reference: STATIN DOSE THERAPY REFERENCE: * Patients > 75 years receive moderate or high dose statin therapy. * Patients 75 years or YOUNGER should receive HIGH intensity statin dose unless contraindicated. You will be required to document reason for non-treatment if statin daily dose does not meet guidelines. HIGH DOSE STATIN THERAPY DAILY Atorvastatin > than or = to 40 mg Rosuvastatin > than or = to 20 mg Amlodipine + Atorvastatin > than or = to 2.5/40 mg Ezetimibe + Simvastatin 10/80 mg Simvastatin 80mg Discharge Plan Admission Admit Date/Time: 10/06/24 20:42 Attending Provider: Freddie Acevedo Primary Care Provider: Celina Delgado NP Consulting Providers: Dennis Little Discharge Orders/Prescriptions Prescriptions: No Action acetaminophen [Acetaminophen Extra Strength] 500 mg tablet 1,000 mg PO Q6H PRN (Reason: pain) ibuprofen 600 mg tablet 600 mg PO Q6H PRN (Reason: fever or pain) Qty: 20 0RF Referrals / Follow Up: Freddie Acevedo MD [Med Staff - Active Staff] - Celina Delgado NP, [employer] [Primary Care Provider] - 10/09/24 0721 Cosigner Signature (if applicable): CC: LINDA Delgado; Dr. Freddie Acevedo MD Signed [facility] 10-07-2024 Note [facility] Medical Records Department [address] [place] [address] History Physical Exam 10/07/24 0744 MR#: [id number] Acct: [id number] Name: LEILANI GRIDER Rep #: [id number] : 1955 69 From: Freddie Acevedo MD PCP: LINDA Sanchez Status:ADM IN Location: [place] [id number] HPI - General General Date of Admission: 10/06/24 Date of Service: 10/06/24 Chief Complaint: Bladder pain HPI Narrative LEILANI GRIDER, is a 69 M who presents to the hospital with severe bladder pain he has been getting treatments for bladder cancer with Mitomycin-C presented with frequency and urgency will admit the patient for control of pain probably start him on a steroid drip and antibiotics [facility] Medical History Loose, teeth Cancer Restless legs Back pain Hoarseness History of pain when walking History of edema Acute blood loss anemia Acute UTI Edema of right lower leg Anemia Wears glasses Alcohol use Arthritis Smoker Bladder mass Hearing loss, left Hearing loss, right Home Medications ???Medication ???Instructions ???Recorded ???Last Taken ???Type acetaminophen 500 mg tablet 1,000 mg PO Q6H PRN pain 08/05/24 Unknown History (Acetaminophen Extra Strength) ibuprofen 600 mg tablet 600 mg PO Q6H PRN fever or pain 08/15/24 Unknown Rx #20 tabs Allergy/AdvReac Type Severity Reaction Status Date / Time No Known Allergies Allergy Verified 08/05/24 11:01 Surgical History Hx of surgical procedure Hx of surgical amputation of finger Hx of hernia repair History of transurethral resection of bladder tumor (TURBT) Social History Smoking Status: Light Smoker (<10/day) Vital Signs Vital Signs Vital Signs: 10/06/24 16:28 10/06/24 19:24 10/06/24 20:34 Temperature 96.8 F L 98.4 F 98.6 F Temperature Source Temporal Temporal Pulse Rate 103 H 72 102 H Pulse Strength Respiratory Rate 20 H 18 16 Respiratory Effort Respiratory Depth Respiratory Pattern Blood Pressure 130/79 H 146/87 H 137/90 H Blood Pressure Mean 96 106 105 Blood Pressure Source Monitor Blood Pressure Position Supine Blood Pressure Location Left Arm Pulse Ox 96 99 100 Oxygen Delivery Method Room Air Room Air 10/06/24 21:23 10/06/24 22:45 10/07/24 00:19 Temperature 7.9 F L Temperature Source Oral Pulse Rate 88 Pulse Strength Normal (2+) Respiratory Rate 18 Respiratory Effort Normal Non-Labored Respiratory Depth Normal Respiratory Pattern Normal Blood Pressure 119/77 Blood Pressure Mean 91 Blood Pressure Source Monitor Blood Pressure Position Semi-Fowlers Blood Pressure Location Right Arm Pulse Ox 95 Oxygen Delivery Method Room Air Room Air 10/07/24 04:31 10/07/24 04:34 Temperature 97.1 F L Temperature Source Temporal Pulse Rate 89 Pulse Strength Respiratory Rate 18 Respiratory Effort Normal Non-Labored Respiratory Depth Normal Respiratory Pattern Normal Blood Pressure 101/77 Blood Pressure Mean 85 Blood Pressure Source Monitor Blood Pressure Position Standing Blood Pressure Location Right Arm Pulse Ox 98 Oxygen Delivery Method Room Air Room Air Weight Weight: 80 kg Body Mass Index (BMI) 28.4 Results Lab / Micro Data 10/06/24 17:15 10/06/24 17:15 Labs: Laboratory Results - last 24 hr 10/06/24 17:15: WBC 9.5, RBC 5.61, Hgb 14.6, Hct 47.1, MCV 84.0, MCH 26.0 L, MCHC 31.0 L, RDW Std Deviation 56.4 H, RDW Coeff of Malgorzata 19.0 H, Plt Count 326, MPV 9.3, Immature Gran % (Auto) 0.300, N eut % (Auto) 78.2 H, Lymph % (Auto) 8.9 L, Ector % (Auto) 7.9, Eos % (Auto) 3.9, Baso % (Auto) 0.8, Absolute Neuts (auto) 7.4, Absolute Lymphs (auto) 0.84, Nucleated RBC % 0, Sodium 140, Potassium 4.1, Chloride 111 H, Carbon Dioxide 24.0, Anion Gap 4 L, BUN 21 H, Creatinine 1.02, Estim Creat Clear Calc 68.49, Est GFR (MDRD) Af Amer 94, Est GFR (MDRD) Non-Af 77, BUN/Creatinine Ratio 20.6 H, Glucose 117 H, Calcium 9.3, Urine Color Red, Urine Clarity Turbid, Urine pH 6.0, Ur Specific Irving 1.025, Urine Protein 500 H, Urine Glucose (UA) Normal, Urine Ketones 5 H, Urine Occult Blood 250 H, Urine Nitrite Positive H, Urine Bilirubin Negative, Urine Urobilinogen Normal, Ur Leukocyte Esterase 100 H, Urine RBC > 100 SEEN, Urine WBC 10-25 SEEN, Ur Squamous Epith Cells 0 SEEN, Urine Bacteria 4+, Urine Mucus 0 SEEN 10/07/24 0744 Cosigner Signature (if applicable): CC: [employer] Celina Delgado; Dr. Freddie Acevedo MD Signed [facility] 08-15-2024 Note [facility] Medical Records Department [address] [place] [address] History Physical Exam 08/15/24 1058 MR#: [id number] Acct: [id number] Name: LEILANI GRIDER Rep #: [id number] : 1955 69 From: Freddie Acevedo MD PCP: LINDA Sanchez Status:[facility] Location: [place] [address] HPI - General General Date of Admission: 08/15/24 Chief Complaint: Recurrent bladder cancer HPI Narrative LEILANI GRIDER, is a 69 M who presents for transurethral resection of recurrent bladder cancer [facility] Medical History Loose, teeth Cancer Restless legs Back pain Hoarseness History of pain when walking History of edema Acute blood loss anemia Acute UTI Edema of right lower leg Anemia Wears glasses Alcohol use Arthritis Smoker Bladder mass Hearing loss, left Hearing loss, right Home Medications ???Medication ???Instructions ???Recorded ???Last Taken ???Type acetaminophen 500 mg tablet 1,000 mg PO Q6H PRN pain 08/05/24 Unknown History (Acetaminophen Extra Strength) ibuprofen 600 mg tablet 600 mg PO Q6H PRN fever or pain 08/15/24 Unknown Rx #20 tabs Allergy/AdvReac Type Severity Reaction Status Date / Time No Known Allergies Allergy Verified 08/05/24 11:01 Surgical History Hx of surgical procedure Hx of surgical amputation of finger Hx of hernia repair History of transurethral resection of bladder tumor (TURBT) Social History Smoking Status: Light Smoker (<10/day) Vital Signs Vital Signs Vital Signs: 08/15/24 08:18 08/15/24 08:18 08/15/24 08:27 Temperature 97.2 F L 97.2 F L Temperature Source Temporal Pulse Rate 65 65 Respiratory Rate 16 16 Respiratory Pattern Normal Blood Pressure 137/90 H 137/90 H Blood Pressure Mean 105 Blood Pressure Source Monitor Blood Pressure Position Semi-Fowlers Blood Pressure Location Left Arm Pulse Ox 97 97 Oxygen Delivery Method Room Air Weight Weight: 75.9 kg Body Mass Index (BMI) 27.0 08/15/24 1058 Cosigner Signature (if applicable): CC: LINDA Delgado; Dr. Freddie Acevedo MD Signed [facility] 11-29-2023 Discharge summary Note Date/Time November 29, 2023 1:24pm [facility] Medical Records Department [address] [place] [address] Instructions for Home/Discharge Instructions 11/29/23 1322 MR#: [id number] Acct: [id number] Name: LEILANI GRIDER Rep #:[id number] : 1955 68 From: Breann Graham MD PCP: LINDA Sanchez Status:ADM IN Discharge Instructions Diet Discharge Diet: Low fat / Low cholesterol Activity Discharge Activity: Return to Normal Activity Weight Bearing Status: Weight bearing as tolerated Dressing / Incision Call your doctor if you observe: Fever of 101 or Higher, Shortness of breath, Dizziness, Swelling in the ankles, Chest pain and Increased palpitations (irregular heartbeat) Follow Up Care Test Results: Test results from this visit will be discussed in further detail at your follow-up appointment, if applicable. Discharge Plan Admission Admit Date/Time: 11/26/23 13:13 Primary Reason for Your Visit: hematuria, bladder mass, UTI Attending Provider: Breann Graham Primary Care Provider: Celina Delgado NP Consulting Providers: Freddie Acevedo; Ervin Anderson Instructions Patient Instructions: Hematuria: Possible Causes, Understanding Bladder Cancer,Staging of Bladder Cancer Discharge Orders/Prescriptions Prescriptions: New sulfamethoxazole-trimethoprim 800-160 mg Tablet 1 tab PO BIDCM Qty: 8 0RF cefdinir 300 mg capsule 300 mg PO BID Qty: 10 0RF Continued tamsulosin 0.4 mg capsule 0.4 mg PO QHS Referrals / Follow Up: Freddie Acevedo MD [Med Staff - Active Staff] - Within 1 Week Celina Delgado NP, NP-C [Primary Care Provider] - Within 2 Weeks Disposition Disposition (needs filled in before D/C Order can be placed): Home, Self Care 11/29/23 1324<Electronically signed by Breann Graham MD>Breann Graham MD CC: JIMMYC Celina Delgado; Dr. Ervin Anderson DO; Dr. Freddie Acevedo MD ~ Signed [facility] Work Phone: 1(833) 454-216201-25-2024 Discharge summary Author [facility] November 29, 2023 3:41pm Note Date/Time November 29, 2023 1 :24pm [facility] Medical Records Department [address] [facility] [place] [address] Discharge Summary 11/29/23 1324 MR#: [id number] Acct: [id number] Name: LEILANI GRIDER #:[id number] : 1955 68 From: Breann Graham MD PCP: LINDA Sanchez Status:ADM IN Location: [facility] [id number] Providers Date of Admission: 11/26/23 Date of Discharge: 11/29/23 Primary Care Physician: LINDA Sanchez Consultations 11/26/23 13:06 Consult: Urology Routine Consulting Provider: Freddie Acevedo Reason for Consult: bladder mass EMERGENT Consult: Yes MD Notified: Yes Date Notified: 11/26/23 Time Notified: 13:07 Method of Notification: ED Physician Initiated Reason For Visit: ACUTE BLOOD LOSS ANEMIA, GROSS HEMATUREA Diagnosis Discharge Diagnosis (1) Acute blood loss anemia: Status: Acute Code(s): D62 - Acute posthemorrhagic anemia (2) Acute UTI: Status: Acute Code(s): N39.0 - Urinary tract infection, site not specified (3) Edema of right lower leg: Status: Acute Code(s): R60.0 - Localized edema (4) Anemia: Status: Acute Code(s): D64.9 - Anemia, unspecified (5) Bladder mass: Status: Acute Code(s): N32.89 - Other specified disorders of bladder (6) Gross hematuria: Status: Acute Code(s): R31.0 - Gross hematuria Plan ##Acute blood loss anemia due to hematuria * has a history of bladder cancer * had emergent cystoscopy with resection of bladder mass and cystoscopy evacuation of blood clots * transfused with a total of 5 units of PRBCs since admission. * Hb is now 7.8 today * continuous bladder irrigation has been discontinued per urology. * urology on board * #UTI: urinalysis showed evidence of UTI. On IV ceftriaxone. #Bladder cancer: as above. 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 Stable #BPH wih obstruction:Slater catheter in situ DVT prophylaxis: SCDs Medications at Discharge Home Medications tamsulosin 0.4 mg capsule 0.4 mg PO QHS PROSTATE 11/26/23 cefdinir 300 mg capsule 300 mg PO BID #10 caps 11/29/23 sulfamethoxazole 800 mg-trimethoprim 160 mg tablet 1 tab PO BIDCM #8 tabs 11/29/23 Hospital Course Procedures - (trans urethral resection of bladder mass with cystoscopy and evacuation of clots) Summary of Care Provided Minutes Spent on Discharge: 45 Hospital Course: Patient is a 68-year-old male with a past medical history as outlined was admitted through the ED on 11/26/2023 with a complaint of worsening fatigue and weakness. He had a known history of bladder cancer diagnosed in 2020 and was thought to be a slow growing bladder cancer at that time so no intervention was required. He had however started noticing he was having hematuria around [place] and went to an outside hospital ED for evaluation. He had a Slater catheter inserted there and followed up with urology. He had a cystoscopy done in the office and plan was to continue to have the Slater catheter in situ and for tumor excision at the end of November. However the hematuria intensified with associated clot formation he became more weak and lightheaded and fatigued. He also has shortness of breath with exertion. He therefore came into the ED. On admission, hemoglobin was 4.3 and he was admitted and managed for acute bloodloss anemia due to hematuria in the setting of bladder cancer. He was transfused with a total of 5 units of packed red blood cells throughout the course of the admission. He was also diagnosed with UTI. He was placed on IV ceftriaxone empirically. Urology was consulted and patient had emergent transurethral resection of the bladder mass as well as cystoscopy with evacuation of clots. Postop course was uncomplicated and patient was transferredout of the ICU after he had continuous bladder irrigation which led to cessationof the hematuria. Hemoglobin came up to 8.3 at time of discharge. He remained stable and was discharged on 11/29/2023. Urine cultures grew Staphylococcus aureus as well as a gram-positive cocci and gram-negative mirlande. He was thereforeswitched to p.o. Bactrim. He is to follow-up with his primary care doctor and with urology within 1 to 2 weeks. He was discharged with a Slater catheter in situ. Patient was seen and examined prior to discharge. He had no active complaints and had an uneventful night. Labs and vitals reviewed. Home medication reviewed and reconciled. Physical Exam Const alert, oriented x3, no apparent distress, average body habitus and well nourished General Appearance: cooperative, comfortable, well kempt and well developed Orientation / Consciousness: awake HEENT normocephalic, head/scalp atraumatic, hearing grossly normal bilaterally, nasal mucous membranes and turbinates normal, moist oral mucous membranes and oropharynx normal Mouth: oral and palatal mucosa normal Eyes PERRL, EOMs intact bilaterally and conjunctivae normal Neck full ROM, no lymphadenopathy, supple and no JVD Lymph Lymphatic: no lymphadenopathy noted and no lymphedema noted Chest inspection of chest normal Resp normal respiratory effort, normal air movement, no retractions, no use of accessory muscles and clear to auscultation bilaterally Cardio regular rate, regular rhythm, S1 normal heart sound, S2 normal heart sound, no murmurs and peripheral pulses 2+ throughout GI normal to inspection, nondistended, normoactive bowel sounds, soft to palpation,non-tender and non-distended Narrative: hematuria has resolved Bladder / Kidney Exam: catheter in place, bladder normal to palpation and no CVAtenderness Back/Spine normal ROM Extremity normal to inspection, full ROM, normal capillary refill, no clubbing, cyanosis or edema and no calf tenderness General Extremity: no tenderness to palpation of joints or extremities Skin no rashes or lesions noted General Skin Exam: no breakdown and turgor normal Neuro oriented x3, CN's II-XII intact bilaterally, moves all extremities, no focal motor deficits, no sensory deficits noted and deep tendon reflexes 2+ bilaterally Sensorium / Orientation: awake and alert Speech: speech normal Motor Exam: strength 5/5 throughout and general weakness Psych mental status grossly normal, thought process normal, cooperative and affect normal Appearance: appropriate Weight / BMI Weight Weight: 178 lb 12.718 oz Body Mass Index (BMI) 28.8 ABG / Lab / Microbiology Data 11/29/23 06:40 11/29/23 06:40 Laboratory: Laboratory Results - last 24 hr 11/26/23 11:25: Diff Path Review Reviewed 11/29/23 06:40: WBC 6.7, RBC 3.86 L, Hgb 8.3 L, Hct 28.1 L, MCV 72.8 L, MCH 21.5L, MCHC 29.5 L, RDW Std Deviation 67.7 H, RDW Coeff of Malgorzata 26.9 H, Plt Count 326, MPV 9.6, Immature Gran % (Auto) 0.600, Neut % (Auto) 66.1, Lymph % (Auto) 15.0 L, Ector % (Auto) 11.3 H, Eos % (Auto) 5.6 H, Baso % (Auto) 1.4 H, Absolute Neuts (auto) 4.4, Absolute Lymphs (auto) 1.00, Nucleated RBC % 0, Anisocytosis 2+, Sodium 137, Potassium 4.2, Chloride 112 H, Carbon Dioxide 24.0, Anion Gap 1 L, BUN 17, Creatinine 0.85, Estim Creat Clear Calc 85.51, Est GFR (MDRD) Af [id number], Est GFR (MDRD) Non-Af 96, BUN/Creatinine Ratio 20.0, Glucose 110 H, Calcium8.6 Microbiology: Microbiology 11/26/23 12:55 Urine Catheter - Slater Urine Culture - Preliminary Staphylococcus aureus Gram negative mirlande Gram Positive Cocci Alpha hemolytic organism D/C Instructions Discharge Diet: Low fat / Low cholesterol Discharge Activity: Return to Normal Activity Weight Bearing Status: Weight bearing as tolerated Call your doctor if you observe: Fever of 101 or Higher, Shortness of breath, Dizziness, Swelling in the ankles, Chest pain and Increased palpitations (irregular heartbeat) Meaningful Use Info Meaningful Use Diagnoses (Choose all that apply): None applicable Discharge Plan Admission Admit Date/Time: 11/26/23 13:13 Primary Reason for Your Visit: hematuria, bladder mass, UTI Attending Provider: Breann Graham Primary Care Provider: Celina Delgado NP Consulting Providers: Freddie Acevedo; Ervin Anderson Instructions Patient Instructions: Hematuria: Possible Causes, Understanding Bladder Cancer,Staging of Bladder Cancer Discharge Orders/Prescriptions Prescriptions: New sulfamethoxazole-trimethoprim 800-160 mg Tablet 1 tab PO BIDCM Qty: 8 0RF cefdinir 300 mg capsule 300 mg PO BID Qty: 10 0RF Continued tamsulosin 0.4 mg capsule 0.4 mg PO QHS Referrals / Follow Up: Freddie Acevedo MD [Med Staff - Active Staff] - Within 1 Week Celina Delgado NP, LEO-C [Primary Care Provider] - Within 2 Weeks Disposition Disposition (needs filled in before D/C Order can be placed): Home, Self Care Charges/Coding Visit Charges Inpatient E&M: 33112 Disch Hosp >30min 11/29/23 1541 <Electronically signed by Breann Graham MD> Cosigner Signature (if applicable): CC: [employer] Celina Delgado; Dr. Breann Graham MD~ Signed [facility] Work Phone: 1(467) 872-930901-25-2024 [facility] Medical Records Department [address] [place] [address] Discharge Summary 11/29/23 1324 MR#: [id number] Acct: [id number] Name: LEILANI GRIDER Rep #: [id number] : 1955 68 From: Breann Graham MD PCP: LINDA Sanchez Status:ADM IN Location: [place] [address] Providers Date of Admission: 11/26/23 Date of Discharge: 11/29/23 Primary Care Physician: LINDA Sanchez Consultations 11/26/23 13:06 Consult: Urology Routine Consulting Provider: Freddie Acevedo Reason for Consult: bladder mass EMERGENT Consult: Yes MD Notified: Yes Date Notified: 11/26/23 Time Notified: 13:07 Method of Notification: ED Physician Initiated Reason For Visit: ACUTE BLOOD LOSS ANEMIA, GROSS HEMATUREA Diagnosis Discharge Diagnosis (1) Acute blood loss anemia: Status: Acute Code(s): D62 - Acute posthemorrhagic anemia (2) Acute UTI: Status: Acute Code(s): N39.0 - Urinary tract infection, site not specified (3) Edema of right lower leg: Status: Acute Code(s): R60.0 - Localized edema (4) Anemia: Status: Acute Code(s): D64.9 - Anemia, unspecified (5) Bladder mass: Status: Acute Code(s): N32.89 - Other specified disorders of bladder (6) Gross hematuria: Status: Acute Code(s): R31.0 - Gross hematuria Plan ##Acute blood loss anemia due to hematuria * has a history of bladder cancer * had emergent cystoscopy with resection of bladder mass and cystoscopy evacuation of blood clots * transfused with a total of 5 units of PRBCs since admission. * Hb is now 7.8 today * continuous bladder irrigation has been discontinued per urology. * urology on board * #UTI: urinalysis showed evidence of UTI. On IV ceftriaxone. #Bladder cancer: as above. 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 Stable #BPH wih obstruction:Slater catheter in situ DVT prophylaxis: SCDs Medications at Discharge Home Medications tamsulosin 0.4 mg capsule 0.4 mg PO QHS PROSTATE 11/26/23 cefdinir 300 mg capsule 300 mg PO BID #10 caps 11/29/23 sulfamethoxazole 800 mg-trimethoprim 160 mg tablet 1 tab PO BIDCM #8 tabs 11/29/23 Hospital Course Procedures - (trans urethral resection of bladder mass with cystoscopy and evacuation of clots) Summary of Care Provided Minutes Spent on Discharge: 45 Hospital Course: Patient is a 68-year-old male with a past medical history as outlined was admitted through the ED on 11/26/2023 with a complaint of worsening fatigue and weakness. He had a known history of bladder cancer diagnosed in 2020 and was thought to be a slow growing bladder cancer at that time so no intervention was required. He had however started noticing he was having hematuria around [place] and went to an outside hospital ED for evaluation. He had a Slater catheter inserted there and followed up with urology. He had a cystoscopy done in the office and plan was to continue to have the Slater catheter in situ and for tumor excision at the end of November. However the hematuria intensified with associated clot formation he became more weak and lightheaded and fatigued. He also has shortness of breath with exertion. He therefore came into the ED. On admission, hemoglobin was 4.3 and he was admitted and managed for acute blood loss anemia due to hematuria in the setting of bladder cancer. He was transfused with a total of 5 units of packed red blood cells throughout the course of the admission. He was also diagnosed with UTI. He was placed on IV ceftriaxone empirically. Urology was consulted and patient had emergent transurethral resection of the bladder mass as well as cystoscopy with evacuation of clots. Postop course was uncomplicated and patient was transferred out of the ICU after he had continuous bladder irrigation which led to cessation of the hematuria. Hemoglobin came up to 8.3 at time of discharge. He remained stable and was discharged on 11/29/2023. Urine cultures grew Staphylococcus aureus as well as a gram-positive cocci and gram-negative mirlande. He was therefore switched to p.o. Bactrim. He is to follow-up with his primary care doctor and with urology within 1 to 2 weeks. He was discharged with a Slater catheter in situ. Patient was seen and examined prior to discharge. He had no active complaints and had an uneventful night. Labs and vitals reviewed. Home medication reviewed and reconciled. Physical Exam Const alert, oriented x3, no apparent distress, average body habitus and well nourished General Appearance: cooperative, comfortable, well kempt and well developed Orientation / Consciousness: awake HEENT normocephalic, head/scalp atraumatic, hearing grossly normal bilaterally, nasal mucous membranes and turbinates normal, moist oral mucous membranes and oropharynx normal Mouth: oral and palatal mucosa normal Eyes PERRL, EOMs intact bilaterally and conjun (more content not included)...[facility]01-24-2024 Progress note Author Breann Graham [facility] November 28, 2023 3:29pm Note Date/Time November 28, 2023 1 0:30am [facility] Medical Records Department [address] [facility] [place] [address] Progress Note 11/28/23 1026 MR#: [id number] Acct: [id number] Name: LEILANI GRIDER Rep #:[id number] : 1955 68 From: Breann Graham MD PCP: LINDA Sanchez Status:ADM IN Location: ICU CVICU20 4-1 Subjective Subjective Patient seen and examined. He had no active complaints and had an uneventful night. Continuous bladder irrigation has been stopped because hematuria has resolved. Review of systems is otherwise negative. Objective Data Objective Data Vital Signs: Vital Signs Temp Pulse Resp BP Pulse Ox O2 Del Method O2 Flow Rate 97.4 F L 69 16 121/68 H 95 Room Air 2 11/28/23 08:00 11/28/23 08:00 11/28/23 08:00 11/28/23 08:00 11/28/23 08:00 11/28/23 08:27 11/28/23 07:21 Oxygen Flow Rate (L/min) 2 Oxygen Delivery Method Room Air Weight: 178 lb 12.718 oz Body Mass Index (BMI) 28.8 Intake & Output: Intake and Output for Last 24 Hours 11/26/23 11/27/23 11/28/23 23:59 23:59 23:59 Intake Total 927.50 / 927.50 2992 / 2992 50 / 50 Output Total 1150 / 1150 85601 / 47235 3000 / 3000 Balance -222.50 / -222.50 -88266 / -91420 -2950 / -2950 Lab / Micro Data 11/28/23 03:55 11/28/23 03:55 Labs: Laboratory Results - last 24 hr 11/26/23 12:06: Crossmatch See Detail 11/26/23 12:06: Crossmatch See Detail 11/28/23 03:55: WBC 7.6, RBC 3.62 L, Hgb 7.8 L, Hct 26.4 L, MCV 72.9 L D, MCH 21.5 L, MCHC 29.5 L, RDW Std Deviation 66.2 H, RDW Coeff of Malgorzata 25.9 H, Plt Count 291, MPV 9.0, Immature Gran % (Auto) 0.500, Neut % (Auto) 62.3, Lymph % (Auto) 18.3 L, Ector % (Auto) 12.3 H, Eos % (Auto) 5.3 H, Baso % (Auto) 1.3 H, Absolute Neuts (auto) 4.7, Absolute Lymphs (auto) 1.39, Nucleated RBC % 0.4, Hypochromasia 1+, Anisocytosis 1+, Sodium 138, Potassium 3.8, Chloride 109 H, Carbon Dioxide 25.0, Anion Gap 4 L, BUN 19 H, Creatinine 0.94, Estim Creat ClearCalc 77.32, Est GFR (MDRD) Af Amer 103, Est GFR (MDRD) Non-Af 85, BUN/CreatinineRatio 20.2 H, Glucose 122 H, Calcium 8.0 L Micro: Microbiology 11/26/23 12:55 Urine Catheter - Slater Urine Culture - Preliminary Staphylococcus aureus Gram negative mirlande Physical Exam Const alert, oriented x3, no apparent distress, average body habitus and well nourished General Appearance: cooperative, comfortable and well developed HEENT normocephalic, head/scalp atraumatic, nasal mucous membranes and turbinates normal, moist oral mucous membranes and oropharynx normal Eyes PERRL, EOMs intact bilaterally and conjunctivae normal Neck full ROM, no lymphadenopathy, supple and no JVD Lymph Lymphatic: no lymphadenopathy noted and no lymphedema noted Chest inspection of chest normal Resp normal respiratory effort, normal air movement, no use of accessory muscles and clear to auscultation bilaterally Cardio regular rate, regular rhythm, S1 normal heart sound, S2 normal heart sound, no murmurs and peripheral pulses 2+ throughout GI normal to inspection, nondistended, normoactive bowel sounds, soft to palpation,non-tender and non-distended Narrative: hematuria has resolved Bladder / Kidney Exam: catheter in place, bladder normal to palpation and no CVAtenderness Back/Spine normal ROM Extremity normal to inspection, normal capillary refill, no clubbing, cyanosis or edema and no calf tenderness General Extremity: no tenderness to palpation of joints or extremities Skin no rashes or lesions noted General Skin Exam: no breakdown and turgor normal Neuro CN's II-XII intact bilaterally, moves all extremities, no focal motor deficits, no sensory deficits noted and deep tendon reflexes 2+ bilaterally Speech: speech normal Motor Exam: strength 5/5 throughout and general weakness Psych mental status grossly normal, thought process normal, cooperative and affect normal Appearance: appropriate Assessment & Plan Assessment/Plan (1) Acute blood loss anemia: (2) Acute UTI: (3) Edema of right lower leg: (4) Anemia: (5) Bladder mass: (6) Gross hematuria: PLAN: Plan ##Acute blood loss anemia due to hematuria * has a history of bladder cancer * had emergent cystoscopy with resection of bladder mass and cystoscopy evacuation of blood clots * transfused with a total of 5 units of PRBCs since admission. * Hb is now 7.8 today * continuous bladder irrigation has been discontinued per urology. * urology on board * #UTI: urinalysis showed evidence of UTI. On IV ceftriaxone. #Bladder cancer: as above. 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 Stable #BPH wih obstruction:Slater catheter in situ DVT prophylaxis: SCDs Charges/Coding Visit Charges Inpatient E&M: 36854 Subs Hosp L2 11/28/23 1529 <Electronically signed by Breann Graham MD> Breann Graham MD Cosigner Signature (if applicable): CC: ~ Signed [facility] Work Phone: 1(411) 636-220701-24-2024 Consult note Author Freddie Acevedo [facility] November 28, 2023 8:13am Note Date/Time November 28, 2023 8 :11am [facility] Medical Records Department [address] [place] [address] Consultation 11/28/23 0810 MR#: [id number] Acct: [id number] Name: LEILANI GRIDER Rep #:[id number] : 1955 68 From: Freddie Acevedo MD PCP: LINDA Sanchez Status:ADM IN Location: ICU CVICU20 4-1 Consult Date of Consult: 11/28/23 Reason for Consult Status post resection of a bladder mass and removal of blood clots from the bladder patient did get some blood transfusion yesterday hemoglobin is back up look stable there is no more bleeding from the catheter we can stop irrigation and plug the port once he is discharged from the hospital he can go home with a catheter and follow-up with urology next week for catheter removal call me with questions. 11/28/23 0811 <Electronically signed by Freddie Acevedo MD> Cosigner Signature (if applicable): CC: LINDA Delgado; Dr. Ervin Anderson DO; Dr. Freddie Acevedo MD~ Signed ADDENDUM by Dr. Freddie Acevedo MD on 11/28/23 at 0813 Addendum Currently on ceftriaxone urine culture from the catheter is positive for Staphylococcus awaiting sensitivities 11/28/23812<Electronically signed by Freddie Acevedo MD> Cosigner Signature (if applicable): cc: LINDA Delgado; Dr. Ervin Anderson DO; Dr. Freddie Acevedo MD ~* Signed [facility] Work Phone: 1(924) 851-617701-24-2024 [facility] Medical Records Department [address] [place] [address] Consultation 11/28/23 0810 MR#: [id number] Acct: [id number] Name: LEILANI GRIDER Rep #: [id number] : 1955 68 From: Freddie Acevedo MD PCP: LINDA Sanchez Status:ADM IN Location: ICU [id number] Consult Date of Consult: 11/28/23 Reason for Consult Status post resection of a bladder mass and removal of blood clots from the bladder patient did get some blood transfusion yesterday hemoglobin is back up look stable there is no more bleeding from the catheter we can stop irrigation and plug the port once he is discharged from the hospital he can go home with a catheter and follow-up with urology next week for catheter removal call me with questions. 11/28/23 08 Cosigner Signature (if applicable): CC: LINDA Delgado; Dr. Ervin Anderson DO; Dr. Freddie Acevedo MD Signed ADDENDUM by Dr. Freddie Acevedo MD on 11/28/23 at 0813 Addendum Currently on ceftriaxone urine culture from the catheter is positive for Staphylococcus awaiting sensitivities 11/28/23812 Cosigner Signature (if applicable): cc: LINDA Delgado; Dr. Ervin Anderson DO; Dr. Freddie Acevedo MD * [facility] Progress note Author Breann [facility] November 27, 2023 3:51pm Note Date/Time November 27, 2023 3 :42pm [facility] Medical Records Department [address] [place] [address] Progress Note 11/27/23 1539 MR#: [id number] Acct: [id number] Name: LEILANI GRIDER Rep #:[id number] : 1955 68 From: Breann Graham MD PCP: LINDA Sanchez Status:ADM IN Location: ICU CVICU20 4-1 Subjective Subjective Patient seen and examined. He had no complaints and was comfortably eating breakfast. Review of systems otherwise negative. Hemoglobin was 6.5 this morning. He had already been transfused with 3 units of packed red blood cells. Objective Data Objective Data Vital Signs: Vital Signs Temp Pulse Resp BP Pulse Ox O2 Del Method O2 Flow Rate 98.5 F 73 16 128/83 H 99 Nasal Cannula 2 11/27/23 15:00 11/27/23 15:00 11/27/23 15:00 11/27/23 15:00 11/27/23 15:00 11/27/23 15:00 11/27/23 15:00 Oxygen Flow Rate (L/min) 2 Oxygen Delivery Method Nasal Cannula Weight: 178 lb 12.718 oz Body Mass Index (BMI) 28.8 Intake & Output: Intake and Output for Last 24 Hours 11/25/23 11/26/23 11/27/23 23:59 23:59 23:59 Intake Total 927.50 / 927.50 2070 / 2070 Output Total 1150 / 1150 40233 / 27319 Balance -222.50 / -222.50 -9980 / -9980 Lab / Micro Data 11/27/23 01:25 11/27/23 01:25 Labs: Laboratory Results - last 24 hr 11/26/23 12:06: Blood Type A POSITIVE, Antibody Screen NEGATIVE, Crossmatch See Detail 11/26/23 12:06: Crossmatch See Detail 11/26/23 14:40: Vitamin B12 407 11/27/23 01:25: WBC 7.3, RBC 3.25 L, Hgb 6.5 L, Hct 22.0 L, MCV 67.7 L D, MCH 20.0 L, MCHC 29.5 L D, RDW Std Deviation 57.3 H, RDW Coeff of Malgorzata 24.1 H, Plt Count 315, MPV 9.0, PT 13.8, INR 1.1, APTT 29.1, Sodium 140, Potassium 4.0, Chloride 112 H, Carbon Dioxide 21.0, Anion Gap 7, BUN 16, Creatinine 1.00, EstimCreat Clear Calc 72.68, Est GFR (MDRD) Af Amer 96, Est GFR (MDRD) Non-Af 80, BUN/Creatinine Ratio 16.0, Glucose 104, Calcium 8.3 L Micro: Microbiology 11/26/23 12:55 Urine Catheter - Slater Urine Culture - Preliminary Staphylococcus species Physical Exam Const alert, oriented x3, no apparent distress and well nourished General Appearance: cooperative and well developed HEENT normocephalic, head/scalp atraumatic, moist oral mucous membranes and oropharynxnormal Eyes PERRL and EOMs intact bilaterally Neck no lymphadenopathy, supple and no JVD Lymph Lymphatic: no lymphadenopathy noted and no lymphedema noted Resp normal respiratory effort, normal air movement and clear to auscultation bilaterally Cardio regular rate, regular rhythm, S1 normal heart sound, S2 normal heart sound and no murmurs GI normal to inspection, nondistended, normoactive bowel sounds, soft to palpation,non-tender and non-distended Extremity normal capillary refill, no clubbing, cyanosis or edema and no calf tenderness General Extremity: no tenderness to palpation of joints or extremities Skin General Skin Exam: no breakdown and turgor normal Neuro CN's II-XII intact bilaterally, no focal motor deficits, no sensory deficits noted and deep tendon reflexes 2+ bilaterally Motor Exam: strength 5/5 throughout and general weakness Psych thought process normal, cooperative and affect normal Appearance: appropriate Assessment & Plan Assessment/Plan (1) Acute blood loss anemia: (2) Acute UTI: (3) Edema of right lower leg: (4) Anemia: (5) Bladder mass: (6) Gross hematuria: PLAN: Plan ##Acute blood loss anemia due to hematuria * has a history of bladder cancer * had emergent cystoscopy with resection of bladder mass and cystoscopy evacuation of blood clots * transfused with 3 u nits of PRBCs on admission as Hb was 4.3 on admission * Hb now is 6.5 * will transfuse 2 more units of PRBCs * On continuous bladder irrigation * urology on board * #UTI: urinalysis showed evidence of UTI. On IV ceftriaxone. #Bladder cancer: as above. 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 Stable #BPH wih obstruction:Slater catheter in situ DVT prophylaxis: SCDs Charges/Coding Visit Charges Inpatient E&M: 88466 [facility] Hosp L3 11/27/23 1551 <Electronically signed by Breann Graham MD> Breann Graham MD Cosigner Signature (if applicable): CC: ~ Signed [facility] Work Phone: 1(508) 599-838601-23-2024 Procedure [facility] 11-26-2023 History and physical note Author Erivn Anderson [facility] November 26, 2023 3:00pm Note Date/Time November 26, 2023 1 :09pm [facility] Medical Records Department [address] [place] [address] H&P Exam - Hospitalist 11/26/23 1307 MR#: [id number] Acct: [id number] Name: LEILANI GRIDER Rep #:[id number] : 1955 68 From: Ervin armstrong DO PCP: Celina Delgado [employer] Status:ADM IN Location: ICU CVICU20 4-1 HPI - General General Date of Admission: 11/26/23 Date of Service: 11/26/23 Chief Complaint: Worsening fatigue and weakness HPI Narrative LEILANI GRIDER, is a 68 M who presented to [facility] ED on 11/26/2023 with worsening fatigue and weakness. Patient seen at bedside in the ED, present. Patient has known history of bladder cancer, follows with in the office. Was diagnosed with bladder cancer back in 2020. Was determined to be a slow- growing bladder cancer at that time, no intervention required to this point. However, patient began noticing worsening hematuria around [place] time and went to the [facility] ED for further evaluation. He hada Slater catheter placed there and saw Dr. Acevedo in the office a few days later. Patient states that Dr. Acevedo performed a cystoscopy to further evaluate his known bladder mass, and plan at that time was to continue the Slater catheter andhave surgery with Dr. Acevedo at the end of November for tumor excision. However,he has had significant bleeding and clot formation in the Slater catheter over the last week or so, and over the last several days he has been much more fatigued and weak than his baseline. 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 However over the last 3 days, he has primarily been in bed sleeping due to his fatigue. He has noticed moderate shortness of breathwith exertion as well. Denies any chest pain with exertion. Denies any fevers or chills. Denies any abdominal pain or discomfort. He has continued to have good appetite. He is also noticed that his right leg seems a bit more swollen than his left leg, and he has mild pain in the right leg. He otherwise has no acute concerns today. [facility] Medical History (Updated 11/26/23 @ 14:[address] Ervin Anderson DO) Alcohol use Arthritis Hearing loss, left Hearing loss, right Smoker Wears glasses Home Medications tamsulosin 0.4 mg capsule 0.4 mg PO QHS PROSTATE 11/26/23 [History Last Taken Unknown] Allergy/AdvReac Type Severity Reaction Status Date / Time No Known Allergies Allergy Verified 11/26/23 10:57 Surgical History History of transurethral resection of bladder tumor (TURBT) Hx of hernia repair Hx of surgical amputation of finger Hx of surgical procedure Social History (Updated 05/26/21 @ 15:13 by Faustino Munoz) Smoking Status: Light Smoker (<10/day) ROS Constitutional Constitutional: Reports fatigue, malaise and weakness; Denies chills or fever(s) Eyes Eyes: Denies change in vision Cardiovascular Cardiovascular: Reports dyspnea on exertion; Denies chest pain, lightheadedness or orthopnea Respiratory/Chest Respiratory/Chest: Denies cough, shortness of breath at rest or wheezing Gastrointestinal Gastrointestinal: Denies abdominal pain, constipation, diarrhea, nausea or vomiting Genitourinary Genitourinary: Reports hematuria Musculoskeletal Musculoskeletal: Denies arthralgias or back pain Neurologic Neurologic: Denies focal weakness, headache(s) or numbness Vital Signs Vital Signs Vital Signs: 11/26/23 10:57 11/26/23 11:31 Temperature 97.9 F Temperature Source Temporal Pulse Rate 101 H Respiratory Rate 24 H Respiratory Effort Short of Breath Respiratory Pattern Normal Blood Pressure 138/66 H Blood Pressure Mean 90 Pulse Ox 100 Oxygen Delivery Method Room Air Weight Weight: 81.193 kg Body Mass Index (BMI) 28.8 Physical Exam Const alert, oriented x3, no apparent distress and average body habitus Constitutional Narrative: Pleasant elderly male, pale and fatigued appearing, otherwise sitting up comfortably in bed, conversing normally, no acute distress. General Appearance: cooperative and comfortable HEENT normocephalic, head/scalp atraumatic and nasal mucous membranes and turbinates normal HEENT Narrative: Hard of hearing bilaterally. Eyes PERRL, EOMs intact bilaterally and conjunctivae normal Neck full ROM, no lymphadenopathy and supple Lymph Lymphatic: no lymphadenopathy noted Chest inspection of chest normal Resp normal respiratory effort, normal air movement, no use of accessory muscles and clear to auscultation bilaterally Cardio regular rate, regular rhythm, no murmurs and peripheral pulses 2+ throughout GI normal to inspection, nondistended, normoactive bowel sounds, soft to palpation,non-tender and non-distended Narrative: Dark red blood noted in Slater catheter bag. Bladder / Kidney Exam: catheter in place, bladder normal to palpation and no CVAtenderness Back/Spine normal ROM Extremity normal to inspection Extremity Narrative: +1-2 pitting edema in right lower extremity up to just below the knee, no edema in left lower extremity. Skin no rashes or lesions noted Neuro moves all extremities and no focal motor deficits Speech: speech normal Psych mental status grossly normal Results Lab / Micro Data 11/26/23 11:25 11/26/23 11:25 Labs: Laboratory Results - last 24 hr 11/26/23 11:25: WBC 5.0, RBC 2.41 L, Hgb 4.3 L*, Hct 15.5 L, MCV 64.3 L, MCH 17.8 L, MCHC 27.7 L, RDW Std Deviation 50.4 H, RDW Coeff of Malgorzata 22.5 H, Plt Count 329, MPV 9.3, Immature Gran % (Auto) 0.200, Neut % (Auto) 59.0, Lymph % (Auto) 20.6, Ector % (Auto) 13.2 H, Eos % (Auto) 6.0 H, Baso % (Auto) 1.0, Absolute Neuts (auto) 2.9, Absolute Lymphs (auto) 1.03, Nucleated RBC % 0.4, Diff Path Review May foll, Hypochromasia 3+, Anisocytosis 2+, Tear Drop Cells 1+, Ovalocytes 1+, Schistocytes 2+ H, Sodium 142, Potassium 4.2, Chloride 112 H,Carbon Dioxide 24.0, Anion Gap 6, BUN 22 H, Creatinine 1.03, Estim Creat Clear Calc 70.60, Est GFR (MDRD) Af Amer 93, Est GFR (MDRD) Non-Af 77, BUN/Creatinine Ratio 21.4 H, Glucose 110 H, Calcium 8.3 L 11/26/23 12:06: Crossmatch See Detail 11/26/23 12:55: Urine Color Red, Urine Clarity Turbid, Urine pH 6.5, Ur SpecificGravity 1.015, Urine Protein 500 H, Urine Glucose (UA) Normal, Urine Ketones 5 H, Urine Occult Blood 250 H, Urine Nitrite Positive H, Urine Bilirubin Negative, Urine Urobilinogen 1 H, Ur Leukocyte Esterase 100 H Assessment & Plan Assessment/Plan (1) Acute UTI: (2) Gross hematuria: (3) Acute blood loss anemia: (4) Bladder mass: PLAN: Plan Patient is a 68-year-old male who presented to [facility] ED on 11/26/2023 with worsening fatigue and weakness. 1. Acute blood loss anemia secondary to gross hematuria in setting of bladder cancer Hemoglobin 4.3 on admit. No recent hemoglobin values for comparison, last knownhemoglobin was 15 back in 03/2022. Presumed secondary to gross hematuria in setting of bladder cancer. Diagnosed with bladder cancer in 2020, follows with Dr. Acevedo. ? Admit under inpatient status to PCU. 3 units packed red blood cells ordered, repeat CBC ordered post transfusion. Urology consulted. Planning for procedurewith Dr. Acevedo on Sunday, n.p.o. at midnight on Sunday. Continue Slater catheter, no need for continuous bladder irrigation at this time. Iron studies,B12, folate ordered. PT/INR ordered. 2. Suspected UTI ? UA on admit showed 100 leukocyte esterase, positive nitrites, 2+ bacteria. Notably was recently treated for UTI at end of October with Keflex, no urine culture results available. Urine culture ordered. Will treat empirically with ceftriaxone for now. 3. History of DVT/PE ? Patient reports history of abdominal clots around the time of his bladder cancer diagnosis in 2020. States he was on Eliquis for about 1 year, has been off anticoagulation since then. Notably does have right lower extremity swelling worse than left on admit, but venous Doppler study was negative for DVT. 4. BPH with obstructive symptoms, recent episode of urinary retention requiringFoley catheter placement ? ED visit at [facility] at end of October for inability to urinate, found to have greater than 1 L of urine in the bladder. Slater catheter placed at that time, has had in place since then. Urology following as above. Continue home Flomax. DVT prophylaxis: SCDs CODE STATUS: Full code, verified Expected disposition: Home, TBD Total clinical time spent by myself addressing the patient's medical issues, reviewing all the data, and collaborating with patient's care team: 55 minutes. Charges/Coding Visit Charges Inpatient E&M: 95752 Init Hosp L2 11/26/23 1500 <Electronically signed by Ervin Anderson DO> Cosigner Signature (if applicable): CC: LINDA Delgado; Dr. Ervin Anderson, ~ Signed [facility] Work Phone: 1(953) 805-986801-22-2024 Discharge summary Author Jaron Nuñez [facility] November 26, 2023 2:49pm Note Date/Time November 26, 2023 1 1:22am [facility] Medical Records Department [address] [place] [address] Emergency Department Summary 11/26/23 MR#: [id number] Acct: [id number] Name: LEILANI GRIDER Rep #:[id number] : 1955 68 From: Susana WERNER PCP: LINDA Sanchez Status:ADM IN Location: ICU CVICU20 4-1 HPI <DEBBI Nunez - Last Filed: 11/26/23 14:31> History of Present Illness Chief Complaint: General Illness Narrative Narrative: 68-year-old male has a history of a bladder tumor and presents with Slater catheter complications. He started having this issue in [address] Acevedo. He has had multiple cystoscopies for evaluation of blood clots and tumor resection. A new Slater catheter was placed on and since then he has had daily issues with blood clots and clogging and he has to irrigate at home every day. He saw Dr. Acevedo after [facility]. Over the last few weeks he has felt generally weak and tired and when he called the urology office today they recommended he come in for evaluation. He has no fever or chills. No chest pain, shortness of breath, or syncope. His urine is gross hematuria. He is not on blood thinners or aspirin. He also complains of a few weeks of bilateral leg swelling worse onthe right. They feel tight and uncomfortable but not necessarily painful. He has a history of abdominal blood clots and was on Eliquis for this in the pastbut no history of extremity DVT. [facility] <DEBBI Nunez - Last Filed: 11/26/23 14:31> [facility] Medical History (Updated 11/26/23 @ 14:31 by DEBBI Nunez) Alcohol use Arthritis Hearing loss, left Hearing loss, right Smoker Wears glasses Home Medications tamsulosin 0.4 mg capsule 0.4 mg PO QHS PROSTATE 11/26/23 [History Last Taken Unknown] Allergy/AdvReac Type Severity Reaction Status Date / Time No Known Allergies Allergy Verified 11/26/23 10:57 Surgical History History of transurethral resection of bladder tumor (TURBT) Hx of hernia repair Hx of surgical amputation of finger Hx of surgical procedure Social History (Updated 05/26/21 @ 15:13 by Faustino Munoz) Smoking Status: Light Smoker (<10/day) ROS <DEBBI Nunez - Last Filed: 11/26/23 14:31> ROS ED ROS Narrative Constitutional: Positive for malaise. CVS: Negative for palpitations, chest pain, syncope. Respiratory: Negative for shortness of breath, cough. GI: Negative for abdominal pain, nausea, vomiting. EXAM <DEBBI Nunez - Last Filed: 11/26/23 14:31> Physical Exam Narrative Exam Narrative: CONST: Patient sitting in no acute distress. EYES: Normal inspection. ENT: Normal inspection, moist mucous membranes. NECK: Normal inspection. RESP: No respiratory distress, faint expiratory wheeze throughout.. CVS: Regular rate and rhythm, no murmur, no gallop. ABD: Soft and nontender, no guarding or rebound, nondistended. Slater catheter leg bag filled with bright red blood. SKIN: Color normal, no rash, warm, dry, intact. EXTREMITIES: Mild edema of both feet right greater than left, no skin changes, no calf tenderness or palpable cords. Full range of motion of all joints, 2+ DPpulses. NEURO: Oriented x4. PSYCH: Normal affect. Const Vital Signs: 11/26/23 10:57 11/26/23 11:31 Temperature 97.9 F Temperature Source Temporal Pulse Rate 101 H Respiratory Rate 24 H Respiratory Effort Short of Breath Respiratory Pattern Normal Blood Pressure 138/66 H Blood Pressure Mean 90 Pulse Ox 100 Oxygen Delivery Method Room Air <Dr. Jaron Nuñez DO - Last Filed: 11/26/23 14:06> Physical Exam Const Vital Signs: 11/26/23 10:57 11/26/23 11:31 Temperature 97.9 F Temperature Source Temporal Pulse Rate 101 H Respiratory Rate 24 H Respiratory Effort Short of Breath Respiratory Pattern Normal Blood Pressure 138/66 H Blood Pressure Mean 90 Pulse Ox 100 Oxygen Delivery Method Room Air [facility] <DEBBI Nunez - Last Filed: 11/26/23 14:31> [facility] Narrative Medical decision making narrative: History gathered from: Patient and spouse Patient has indwelling Slater catheter presenting with continuous hematuria, clogging from clots, and is scheduled for bladder tumor surgery with Dr. Acevedo. He is feeling weak and tired. Heart rate is 101 otherwise normal vital signs. His exam is fairly unremarkable except for mild right leg/foot edema. Distal pulses intact. No palpable cords. Hemoglobin is 4.3 with normal WBC and platelets. He has no prior for comparison but I suspect continues gross hematuria has caused his anemia and fatigue. BMP is unremarkable. I ordered a transfusion of 3 units PRBCs. UA is consistent with infection so was cultured and treated with Rocephin. I consulted Dr. Acevedo who agreed with transfusion and recommended admission to the medical team. Regarding lower extremity edema,bilateral leg ultrasounds are negative for DVT. Case was discussed with the hospitalist for admission. I have personally performed a face to face exam and reviewed the PELON Note. I performed a substantive portion of the visit including all aspects of the following. My [place] findings include: History is 68-year-old male who has had a indwelling Slater catheter with hematuria clots is scheduled for bladder surgery with Dr. Acevedo. This swelling and abnormal area skin coloring. No reported fever. Exam is patient with parlor. Slight tachycardia no hypotension. Abdomen is nonsurgical. Slight edema of the feet. Medical Decison Making patient's hemoglobin is substantially low at 4.3. White count 5 platelets 329. Normal creatinine. Urinalysis concerning for infection. Patient agrees to transfusion. Will discuss the case with urology and medicine. Lab Data Attestation: I reviewed the patient's lab results. Labs: Laboratory Results - last 24 hr 11/26/23 11/26/23 11/26/23 11:25 12:06 12:55 WBC 5.0 RBC 2.41 L Hgb 4.3 L* Hct 15.5 L MCV 64.3 L MCH 17.8 L MCHC 27.7 L RDW Std Deviation 50.4 H RDW Coeff of Malgorzata 22.5 H Plt Count 329 MPV 9.3 Immature Gran % (Auto) 0.200 Neut % (Auto) 59.0 Lymph % (Auto) 20.6 Ector % (Auto) 13.2 H Eos % (Auto) 6.0 H Baso % (Auto) 1.0 Absolute Neuts (auto) 2.9 Absolute Lymphs (auto) 1.03 Nucleated RBC % 0.4 Diff Path Review May foll Hypochromasia 3+ Anisocytosis 2+ Tear Drop Cells 1+ Ovalocytes 1+ Schistocytes 2+ H Sodium 142 Potassium 4.2 Chloride 112 H Carbon Dioxide 24.0 Anion Gap 6 BUN 22 H Creatinine 1.03 Estim Creat Clear Calc 70.60 Est GFR (MDRD) Af Amer 93 Est GFR (MDRD) Non-Af 77 BUN/Creatinine Ratio 21.4 H Glucose 110 H Calcium 8.3 L Urine Color Red Urine Clarity Turbid Urine pH 6.5 Ur Specific Irving 1.015 Urine Protein 500 H Urine Glucose (UA) Normal Urine Ketones 5 H Urine Occult Blood 250 H Urine Nitrite Positive H Urine Bilirubin Negative Urine Urobilinogen 1 H Ur Leukocyte Esterase 100 H Urine RBC 50-100 SEEN Urine WBC 10-25 SEEN Ur Squamous Epith Cells 0 SEEN Urine Bacteria 2+ Urine Mucus 0 SEEN Blood Type A POSITIVE Antibody Screen NEGATIVE Crossmatch See Detail <Dr. Jaron Nuñez, DO - Last Filed: 11/26/23 14:06> [facility] MDM Narrative Medical decision making narrative: History gathered from: Patient and spouse Patient has indwelling Slater catheter presenting with continuous hematuria, clogging from clots, and is scheduled for bladder tumor surgery with Dr. Acevedo. He is feeling weak and tired. Heart rate is 101 otherwise normal vital signs. His exam is fairly unremarkable except for mild right leg/foot edema. Distal pulses intact. No palpable cords. Hemoglobin is 4.3 with normal WBC and platelets. He has no prior for comparison but I suspect continues gross hematuria has caused his anemia and fatigue. BMP is unremarkable. I ordered a transfusion of 3 units PRBCs. I consulted Dr. Acevedo who agreed with transfusionand recommended admission to the medical team. Case will be discussed with the hospitalist I have personally performed a face to face assessment of the patient and have reviewed the PELON Note. I performed a substantive portion of the visit including all aspects of the following. My [place] findings include: History is 68-year-old male who has had a indwelling Slater catheter with hematuria clots is scheduled for bladder surgery with Dr. Acevedo. This swelling and abnormal area skin coloring. No reported fever. Exam is patient with parlor. Slight tachycardia no hypotension. Abdomen is nonsurgical. Slight edema of the feet. Medical Decison Making patient's hemoglobin is substantially low at 4.3. White count 5 platelets 329. Normal creatinine. Urinalysis concerning for infection. Patient agrees to transfusion. Will discuss the case with urology and medicine. History & Record Review Discussion w/independent historian: Patient Additional record(s) reviewed:: Prior labs Lab Data Labs: Laboratory Results - last 24 hr 11/26/23 11/26/23 11/26/23 11:25 12:06 12:55 WBC 5.0 RBC 2.41 L Hgb 4.3 L* Hct 15.5 L MCV 64.3 L MCH 17.8 L MCHC 27.7 L RDW Std Deviation 50.4 H RDW Coeff of Malgorzata 22.5 H Plt Count 329 MPV 9.3 Immature Gran % (Auto) 0.200 Neut % (Auto) 59.0 Lymph % (Auto) 20.6 Ector % (Auto) 13.2 H Eos % (Auto) 6.0 H Baso % (Auto) 1.0 Absolute Neuts (auto) 2.9 Absolute Lymphs (auto) 1.03 Nucleated RBC % 0.4 Diff Path Review May foll Hypochromasia 3+ Anisocytosis 2+ Tear Drop Cells 1+ Ovalocytes 1+ Schistocytes 2+ H Sodium 142 Potassium 4.2 Chloride 112 H Carbon Dioxide 24.0 Anion Gap 6 BUN 22 H Creatinine 1.03 Estim Creat Clear Calc 70.60 Est GFR (MDRD) Af Amer 93 Est GFR (MDRD) Non-Af 77 BUN/Creatinine Ratio 21.4 H Glucose 110 H Calcium 8.3 L Urine Color Red Urine Clarity Turbid Urine pH 6.5 Ur Specific Irving 1.015 Urine Protein 500 H Urine Glucose (UA) Normal Urine Ketones 5 H Urine Occult Blood 250 H Urine Nitrite Positive H Urine Bilirubin Negative Urine Urobilinogen 1 H Ur Leukocyte Esterase 100 H Urine RBC 50-100 SEEN Urine WBC 10-25 SEEN Ur Squamous Epith Cells 0 SEEN Urine Bacteria 2+ Urine Mucus 0 SEEN Blood Type A POSITIVE Antibody Screen NEGATIVE Crossmatch See Detail Management Discussion w/another healthcare provider: Hospitalist and Display Director (Urology) Discharge Plan Dx/Rx/DC Orders Clinical Impression: Anemia, Gross hematuria, Bladder mass, Edema of right lower leg, Acute UTI Disposition Disposition: Acute Care Hospital [facility] Discharge Date/Time: 11/26/23 14:03 What to do if you have Problems For any increased pain, shortness of breath, bleeding, nausea or vomiting, chestpain, or any unexpected problems, contact your Primary Care Provider. Call [facility] ([phone]) or report to the closest Emergency Room. Call 911 if necessary. 11/26/23 1431 <Electronically signed by Susana WERNER> Cosigner Signature (if applicable): 11/26/23 1449 <Electronically signed by Jaron Nuñez DO> CC: LINDA Delgado ~ Signed [facility] Work Phone: 1(592) 439-921901-22-2024 Consult note Author Freddie Acevedo [facility] November 26, 2023 1:10pm Note Date/Time November 26, 2023 1 :10pm [facility] Medical Records Department [address] [place] [id number] Consultation - Urology 11/26/23 1309 MR#: [id number] Acct: [id number] Name: LEILANI GRIDER Rep #:[id number] : 1955 68 From: Freddie Acevedo MD PCP: LINDA Sanchez Status:[place] [facility] Location: ED HPI Consult Data Date of Consult: 11/26/23 HPI Narrative Reason for Consultation: bleeding bladder mas HPI Narrative: LEILANI GRIDER, is a 68 M who know to have bladder mass presents with low Hct admitted to hospitalist for anemia acute, plan to do surgery TURBT of bladder mass on Sunday. [facility] Medical History (Updated 11/26/23 @ 12:14 by DEBBI Nunez) Alcohol use Arthritis Hearing loss, left Hearing loss, right Smoker Wears glasses Home Medications tamsulosin 0.4 mg capsule 0.4 mg PO QHS PROSTATE 11/26/23 [History Last Taken Unknown] Allergy/AdvReac Type Severity Reaction Status Date / Time No Known Allergies Allergy Verified 11/26/23 10:57 Surgical History History of transurethral resection of bladder tumor (TURBT) Hx of hernia repair Hx of surgical amputation of finger Hx of surgical procedure Social History (Updated 05/26/21 @ 15:13 by Faustino Munoz) Smoking Status: Light Smoker (<10/day) Lab / Micro Data 11/26/23 11:25 11/26/23 11:25 Labs: Laboratory Results - last 24 hr 11/26/23 11:25: WBC 5.0, RBC 2.41 L, Hgb 4.3 L*, Hct 15.5 L, MCV 64.3 L, MCH 17.8 L, MCHC 27.7 L, RDW Std Deviation 50.4 H, RDW Coeff of Malgorzata 22.5 H, Plt Count 329, MPV 9.3, Immature Gran % (Auto) 0.200, Neut % (Auto) 59.0, Lymph % (Auto) 20.6, Ector % (Auto) 13.2 H, Eos % (Auto) 6.0 H, Baso % (Auto) 1.0, Absolute Neuts (auto) 2.9, Absolute Lymphs (auto) 1.03, Nucleated RBC % 0.4, Diff Path Review May foll, Hypochromasia 3+, Anisocytosis 2+, Tear Drop Cells 1+, Ovalocytes 1+, Schistocytes 2+ H, Sodium 142, Potassium 4.2, Chloride 112 H,Carbon Dioxide 24.0, Anion Gap 6, BUN 22 H, Creatinine 1.03, Estim Creat Clear Calc 70.60, Est GFR (MDRD) Af Amer 93, Est GFR (MDRD) Non-Af 77, BUN/Creatinine Ratio 21.4 H, Glucose 110 H, Calcium 8.3 L 11/26/23 12:06: Crossmatch See Detail 11/26/23 12:55: Urine Color Red, Urine Clarity Turbid, Urine pH 6.5, Ur SpecificGravity 1.015, Urine Protein 500 H, Urine Glucose (UA) Normal, Urine Ketones 5 H, Urine Occult Blood 250 H, Urine Nitrite Positive H, Urine Bilirubin Negative, Urine Urobilinogen 1 H, Ur Leukocyte Esterase 100 H 11/26/23 1310 <Electronically signed by Freddie Acevedo MD> Cosigner Signature (if applicable): CC: LINDA Delgado; Dr. Freddie Acevedo MD~ Signed [facility] Work Phone: 1(935) 286-809212-28-2023 Note. MICRO - Microbiology PROCEDURE: Urine Culture [*1] [...] Locations *1: This test was performed at: [address], [facility] , [facility])10-29-2023 Hospital Discharge instructions Patient Education 10/29/2023 17:53:48 Bladder Infection, [...] This is called a bladder infection. Most bladderinfections are easily treated. They are not serious [...] bladder or urethra and keep the bladder fromemptying.) Treatment Bladder infections are treated with antibiotics. [...] all symptoms have not cleared up within 5days. It is important to keep your follow-up appointment. You can talk with your provider to see ifyou need more tests of the urinary tract. This is especially important if you have infections that keep coming back. If a culture was done, you will be told if your treatment needs to be changed. If directed, you cancall to find out the results. If X-rays [...] to keep medicine down Weakness or dizziness [id number] [employer]. [address] [place] [address], [place] [address]. All rights reserved. This information is not intended as a substitute for professional medical care. Always follow yourhealthcare professional's instructions. 10/29/2023 17:02:33 Slater Catheter, Care Lsater Catheter Care A Slater catheter is a rubber tube that is placed through the urethra (opening where urine comes out) and into the bladder. This helps drain urine from the bladder. There is a small balloon on the endof the tube that is inflated after insertion. [...] for repeat urine testing and catheter removal orreplacement. When to seek medical advice Call your [...] for 6 hours Weakness, dizziness, or fainting [phone] [employer]. [address] [place] [address]. All rights reserved. This information is not intended as a substitute for professional medical care. Always follow yourhealthcare professional's instructions. Follow Up Care 10/29/2023 16:44:06 With:FREDDIE ACEVEDO MD, [facility] Address: [address] [place] [phone] When:2-4 days [facility] 12-25-2023 Emergency department Discharge summary Discharge Instructions Thank you for allowing [facility] to assist you with your healthcare needs. The following is importantdischarge information regarding your hospital visit. Diagnosis from Today's Visit Urinary retention What to Do Next Instructions from Your Care Team No qualifying data available. Post Acute Orders No qualifying data available. You Need to Schedule the Following Appointments Follow Up with FREDDIE ACEVEDO MD, [facility] When Within 2-4 days Where: [address] [place] [phone] Allergies NKA Medications Please ask your primary doctor or pharmacist before taking any other medication not listed, including over the counter drugs, herbal medications, vitamins and or supplements as they may interact withyour home medications. What How Much When Why [...] This is called a bladder infection. Most bladderinfections are easily treated. They are not serious [...] bladder or urethra and keep the bladder fromemptying.) Treatment Bladder infections are treated with antibiotics. [...] all symptoms have not cleared up within 5days. It is important to keep your follow-up appointment. You can talk with your provider to see ifyou need more tests of the urinary tract. This is especially important if you have infections that keep coming back. If a culture was done, you will be told if your treatment needs to be changed. If directed, you cancall to find out the results. If X-rays [...] to keep medicine down Weakness or dizziness [phone] [employer]. [address] [place] [address], [place] [address]. All rights reserved. This information is not intended as a substitute for professional medical care. Always follow yourhealthcare professional's instructions. Slater Catheter Care A Slater catheter is a rubber tube that is placed through the urethra (opening where urine comes out) and into the bladder. This helps drain urine from the bladder. There is a small balloon on the endof the tube that is inflated after insertion. [...] for repeat urine testing and catheter removal orreplacement. When to seek medical advice Call your [...] for 6 hours Weakness, dizziness, or fainting [phone] [employer]. [address] [place] [address]. All rights reserved. This information is not intended as a substitute for professional medical care. Always follow yourhealthcare professional's instructions. Additional Information VACCINATE! IT SAVES LIVES! Members of the community who have not yet received the COVID-19 vaccine and would like to receive it can visit one of [facility] vaccine clinics. There are many vaccine clinic locations within the [facility]. For locations and available times, please visit www.gettheshot.coronavirus.[place].gov/. It is important to note that some COVID mobile vaccine clinics are held outdoors and may be canceled in rainy or stormy conditions. To learn more about pediatric vaccinations (ages 5-11), we invite you to visit the [facility] webpage. https://www.[facility].org/pages/0931-Olzcd-Ydrjuzfgvax-Vxgyplkijl-Owfaj-Xha stions.htmlTo learn more about the COVID-19 vaccine, we invite you to visit the CDC website for a list of frequently asked questions. https://www.cdc.gov/coronavirus/2019-ncov/vaccines/faq.html [facility] Patient Portal Access Instructions: Stay connected with your healthcare team and access your personal medical information anytime with the [facility] Patient Portal. If you would like a full copy of your medical records please contact the [facility] Medical Records Department Sunday through Sunday between 8a.m. and 4:30p.m. Please follow the directions below to access the portal: 1.Access the email account you provided upon registration to the [facility].2.Look for an invitation email from [facility].3.Open the email and access the invitation link: Accept Invitation to [facility]4.Fill in the required tierney to create your account. Sign into [email or web address] with your username and password that you [...] you will allow to register on the [facility] Patient Portal for access to your information. You can also access the [facility] Patient Portal on the [employer] pelon. Simply click on Health Records under [employer] and then click on the [facility] logo. HOW TO SAFELY DISPOSE OF PRESCRIPTION MEDICATIONS Please use one of the following methods to safely dispose of your unused medications. 1.Use a drug disposal kit: the drug disposal pouch allows you to safely discard your old and unuseddrugs. Ask your nurse to give you one when you are discharged.2.Visit a local take-back location: Many local pharmacies and police departments have programs that collect old and unwanted prescriptiondrugs. Call your local pharmacy or go to http://bit.Masterbranch/7A4Hr2t to find one close to you.3.Make use of household items: Use cat litter or old coffee grounds to dispose medications if other options arenot available. Mix your drugs with these household products, seal them in an airtight container andthrow it into the garbage. Call [facility]: [phone] to be sure your drugs can be [...] drowsiness, such as benzodiazepines, also known as benzos,including diazepam and alprazolam, muscle relaxants or sleep aids. Never sell or share prescriptionopioids. This is illegal. Store opioids in a [...] aware that I should contact my doctor. 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 Signature: Date/Time: Relationship to Patient: Witness Name/Signature: Date/Time: [facility]-2023 Evaluation + Plan note Diagnostic Tests Pending * Urine Culture 10/29/23 [facility] Consult note Author Julieta Balderas [facility] November 29, 2023 2:36pm Note Date/Time November 29, 2023 2 :36pm [facility] Medical Records Department [address] [place] [address] Counseling Note - Pharmacy 11/29/23 1435 MR#: [id number] Acct: [id number] Name: LEILANI GRIDER Rep #:[id number] : 1955 68 From: Julieta Balderas PCP: Celina Delgado NP-C Status:ADM IN Y Location: [place] [address] Pharmacy [facility] Pharmacy Service has performed discharge medication reconciliation and counseling for this patient. 1. CEFDINIR 300MG PO BID X 5 DAYS 2. SULFAMETHOXAZOLE/TRIMETHOPRIM DS 1T PO BIDCM X 4 DAYS The patient's discharge medication list was reviewed for discrepancies and discrepancies were resolved. The patient was counseled on the following discharge medications and changes in medications for homegoing were reviewed. The Reason for Use, instructions for use, and potential side effects were reviewed for all new medications. The patient's questions regarding all of their medications were answered. The patient was able to verbally demonstrate an understanding of their dischargemedications. Medications at Discharge Home Medications tamsulosin 0.4 mg capsule 0.4 mg PO QHS PROSTATE 11/26/23 cefdinir 300 mg capsule 300 mg PO BID #10 caps 11/29/23 sulfamethoxazole 800 mg-trimethoprim 160 mg tablet 1 tab PO BIDCM #8 tabs 11/29/23 11/29/23 1246 <Electronically signed by Julieta Balderas> Date _ Julieta Balderas Cosigner Signature (if applicable): Date CC: ~ Signed [facility] Work Phone: Evaluation + Plan note No data available for this section [facility] Evaluation noteNo assessment information available [facility] Work Phone: Evaluation note* Diagnosis Onset Date Resolution Status Acute blood loss anemia acut e Acute UTI acute Anemia acute Bladder mass acute Edema of right lower leg acu te Gross hematuria acute [facility] Work Phone: Hospital Discharge instructions No data available for this section [facility] Progress note No data available for this section [facility] Advance Directives No Advanced Directives Records Found Advance Directive Response Recorded Date/ Time Living Will No May 26, 2021 2:58pm Power of Nurse Ldr No May 26 1 2:58pm Advance Directive Response Recorded Date/ Time Living Will No May 26, 2021 1:58pm Power of Nurse Ldr No May 26 1 1:58pm Advance Directive Response Recorded Date/ Time Living Will No November 26 2:05pm Power of Nurse Ldr No November 26, 2023 2:05pm Chief Complaint and Reason for Visit Chief Complaint Z85.51 R31.0 Chief Complaint Z85.51 R31.0 ACUTE BLOOD LOSS ANEMIA, GROSS HEMATUREA ACUTE BLOOD LOSS ANEMIA, GROSS HEMATUREA PREOP ACUTE BLOOD LOSS ANEMIA, GROSS HEMATUREA ACUTE BLOOD LOSS ANEMIA, GROSS HEMATUREA ACUTE BLOOD LOSS ANEMIA, GROSS HEMATUREA Reason for Visit Acute blood loss ane maury Acute UTI Anemia Bladder mass Edema of right lower leg Gross hematuria Summary Purpose Family History No Family History Records Found Additional Source Comments Care Team (unrecognized sect ion and content) Team Status: Active Member Role Status Dates Celina Delgado [employer] ARCHITECT, [employer] ARCHITECT-C Primary Care Provider Active Team Status: Active Member Role Status Dates Celina Delgado [employer] ARCHITECT, [employer] ARCHITECT-C Primary Care Provider Active Dr. Jaron Nuñez , Emergency Provider Active Dr. Freddie Acevedo MD Other Provider Active Dr. Ervin Anderson DO Admit Provi anisa, Attending Provider, Other Provider Active Team Status: Active Member Role Status Dates Celina Delgado [employer] ARCHITECT, [employer] ARCHITECT-C Primary Care Provider Active Dr. Dennis Delatorre MD Attending Provider Active Team Status: Active Member Role Status Dates Celina Delgado [employer] ARCHITECT, [employer] ARCHITECT-C Primary Care Provider Active Dr. Jaron Nuñez DO Emergency Provider Active Dr. Ervin Anderson , DO Admit Provider, Other Pro vider Active Dr. Freddie Acevedo MD Other Provider Active Dr. Breann Graham MD Attending Provider, Other Prov ider Active Team Status: Active Member Role Status Dates Celina Delgado [employer] ARCHITECT, [employer] ARCHITECT-C Primary Care Provider Active Dr. Ronen Nicole MD Attending Provider Active Dr. Freddie Acevedo MD Referring Provider Active Team Status: Inactive Member Role Status Dates Celina Delgado [employer] ARCHITECT, [employer] ARCHITECT-C Primary Care Provider Active Dr. Freddie Acevedo MD Attending Provider, Referr ing Provider Active Team Status: Inactive Member Role Status Dates Celina Delgado [employer] ARCHITECT, [employer] ARCHITECT-C Primary Care Provider Active Dr. Jaron Nuñez DO Emergency Provider Active Dr. Ervin Anderson , Admit Provider, Other Pro vider Active Dr. Freddie Acevedo MD Other Provider Active Dr. Breann Graham MD Attending Provider Active Goals (unrecognized section and content) Goals may be documented in a n alternate section (unrecognized sect ion and content) No Status Records FoundNo Status Records Found INFORMATION SOURCE (unrecogn ized section and content) DATE CREATED AUTHOR 02/07/2024 [facility] ([place]) DATE CREATED AUTHOR AUTHOR'S ORGANIZ ATION 10/19/2024 [facility] FOR RECORDS PERTAINING TO PATIENTS WHO ARE [...] BE BASED ON THE PRIMARY CLINICAL RECORDS. [employer] [facility]. provides no warranty or guarantee of the accuracy or completeness of information in this document.
--- NOTE | 2025-05-02 16:55 | RAD_ITS ---
PROCEDURE: PELVIS 1 OR 2 VIEWS 05/02/2025 REASON FOR EXAM: INJURY/PAIN TECHNIQUE: PELVIS 1 OR 2 VIEWS COMPARISON: None. FINDINGS: Hardware: None. Bones: No acute fracture. No aggressive osseous lesions. Joints: Moderate degenerative changes. soft tissues: Soft tissues are unremarkable. Other: Scattered vascular calcifications and phleboliths. RAD/Pelvis 1 or 2 Views IMPRESSION: NO ACUTE FINDINGS. DEGENERATIVE CHANGES. Reading Location: [id number]
[2025-05-02 17:24] VITALS: BP 146/88; PULSE 91; RESP 16; TEMP 36.6; O2SAT 99
== END 2025-05-02 17:31 | disposition home or self-care (01) ==
PROVIDERS: Emergency Provider Emergency Medicine; PCP Nurse Practitioner Primary Care; Referring Provider Emergency Medicine; Visit Provider Emergency Medicine
DX: M19.011 Primary osteoarthritis, right shoulder (principal); C67.9 Malignant neoplasm of bladder, unspecified; S76.111A Strain of right quadriceps muscle, fascia and tendon, initial encounter; S40.021A Contusion of right upper arm, initial encounter; X58.XXXA Exposure to other specified factors, initial encounter; F17.200 Nicotine dependence, unspecified, uncomplicated; R03.0 Elevated blood-pressure reading, without diagnosis of hypertension
CPT/HCPCS: 72170; 73030; 96374; 96375; 99282; A4216; J2405

== ENCOUNTER 2025-08-19 14:03 | Emergency (ER) | payer OTHER, SELFPAY ==
[2025-08-19 14:03] VITALS: BP 127/108; PULSE 60; RESP 25; TEMP 36.1; O2SAT 97; BMI 27.3
--- NOTE | 2025-08-19 14:30 | MRI_ITS ---
PROCEDURE: MRI SPINE LUMBAR (ROUTINE) 08/19/2025 REASON FOR EXAM: L3 RADICULOPATHY, ABSENT REFLEX AND QUADRICEP WEAK TECHNIQUE: Procedure Code: MRISPL Modality: MR Procedure: SPINE LUMBAR (ROUTINE) Multiplanar and multisequential MRI of the lumbar spine was performed without contrast. COMPARISON: None. FINDINGS: 5 [id number] lumbar-type vertebrae are preserved in height, with anatomic alignment. No suspicious marrow lesion. Type 2 degenerative endplate marrow signal changes at L5-S1 with degenerative Schmorl's node formation along the inferior endplate of L5. Mild multilevel spondylotic changes with varying degrees of disc desiccation and narrowing, endplate osteophytosis, and hypertrophic facet arthropathy. Conus is normal in signal and morphology, terminating at L1. Normal appearance of the cauda equina. No significant abnormality in the visualized paravertebral soft tissues. Partially imaged mild left hydroureteronephrosis, with the distal ureter excluded from view. L1-2: No spinal canal or foraminal narrowing. L2-3: No significant spinal canal or neural foraminal narrowing. L3-4: Dorsal disc bulge with superimposed left subarticular disc extrusion, resulting in mild spinal canal narrowing with effacement of the left lateral recess, and mild-moderate bilateral neural foraminal stenosis. Likely impingement of the traversing left L3 and/or L4 nerve roots. L4-5: Mild dorsal annular disc bulging, without significant spinal canal narrowing. Mild-moderate bilateral neural foraminal stenosis. L5-S1: Mild dorsal annular disc bulging, without significant spinal canal narrowing. Mild-moderate bilateral neural foraminal stenosis, greater on the left. MRI/Spine Lumbar (Routine) IMPRESSION: 1. Mild multilevel spondylotic changes, as described. 2. Dorsal disc bulge and left subarticular disc extrusion at L3-4, effacing the left lateral recess likely with impingement of the left L3 and/or L4 nerve roots. 3. Mild-moderate bilateral neural foraminal narrowing at L3-4, L4-5, and L5-S1. Reading Location: [id number]
--- NOTE | 2025-08-19 15:10 | RAD_ITS ---
PROCEDURE: ORBITS FOR FOREIGN BODY 08/19/2025 REASON FOR EXAM: HX METAL TO EYE,,PRE MRI TECHNIQUE: Procedure Code: [id number]. Modality: DX Procedure: ORBITS FOR FOREIGN BODY COMPARISON: None FINDINGS: Bones: Unremarkable Sinuses: Unremarkable Additional findings: No radiopaque foreign bodies RAD/Orbits for Foreign Body IMPRESSION: No radiopaque foreign bodies. Reading Location: [facility]
--- NOTE | 2025-08-19 15:15 | ED.VIS.BACK ---
HPI <Dr. Victoriano Boykin MD - Last Filed: 08/20/25 11:27> History of Present Illness Chief Complaint: Lower Extremity Injury Detail of Chief Complaint: Low back pain radiating down the leg L3 dermatome Informant: patient Onset/Context/Timing Onset: Days Chronic pain exacerbated by: Initial injury mid June Injury: work related Timing: Continuous Quality: Dull, Aching and Burning Location: Lumbar and - (Left inguinal greater trochanteric area down to medial proximal left leg) Current Severity: Mild Maximum Severity: Severe Worsened by: improves with Movement; worse with Ambulation, Bending, Lifting or Night time pain Relieved by: Nothing Associated Symptoms Associated Symptoms: Radiation to Right Leg (L3 dermatome); Negative for Numbness, Tingling, Fever, Abdominal Pain, Dysuria, Unable to Ambulate, Unable to Transfer, Urinary Retention, Urinary Incontinence, Constipation or Fecal Incontinence Narrative Narrative: Patient is a 70-year-old male. He presents with pain that he states in his left hip. Points to the left greater trochanteric region and goes anteriorly past the knee medially. He denies bowel or bladder dysfunction. He denies foot drop. He denies buckling of his knees going up or down steps. He denies fever or chills. He denies saddle paresthesia or anesthesia. He has had no recent procedures. He denies weight loss or night sweats. Prior similar symptoms: Yes Recent Illness/Hospitalization: Yes (Seen by orthopedic surgeon. Outpatient MRI and hip was ordered.) [facility] <Dr. Victoriano Boykin MD - Last Filed: 08/20/25 11:27> [facility] Medical History Loose, teeth Cancer Restless legs Back pain Hoarseness History of pain when walking History of edema Acute blood loss anemia Acute UTI Edema of right lower leg Anemia Wears glasses Alcohol use Arthritis Smoker Bladder mass Hearing loss, left Hearing loss, right Home Medications ?Medication ?Instructions ?Recorded ?Last Taken ?Type acetaminophen 500 mg tablet 1,000 mg PO Q6H PRN pain 08/05/24 Unknown History (Acetaminophen Extra Strength) ibuprofen 600 mg tablet 600 mg PO Q6H PRN fever or pain 08/15/24 Unknown Rx #20 tabs ciprofloxacin HCl 500 mg tablet 500 mg PO BID #10 tabs 10/09/24 Unknown Rx (Cipro) phenazopyridine 200 mg tablet 200 mg PO TID 5 days #15 tabs 10/09/24 Unknown Rx (Pyridium) hydrocodone-acetaminophen 5-325mg 1 tab PO Q6H PRN PRN Pain 3 days 05/02/25 Unknown Rx 5mg-325mg #10 TABLETS naproxen 500 mg tablet 500 mg PO BID #10 tabs 05/02/25 Unknown Rx oxycodone-acetaminophen 5 mg-325 1 tab PO Q6H PRN PRN pain 5 days 08/19/25 Unknown Rx mg tablet #20 TABLETS Allergy/AdvReac Type Severity Reaction Status Date / Time No Known Allergies Allergy Verified 08/19/25 14:03 Surgical History Hx of surgical procedure Hx of surgical amputation of finger Hx of hernia repair History of transurethral resection of bladder tumor (TURBT) Social History household members: spouse Smoking Status: Light Smoker (<10/day) substance use type: does not use ROS <Dr. Victoriano Boykin MD - Last Filed: 08/20/25 11:27> ROS ED Constitutional Constitutional ED: Denies chills, fever(s), subjective or sweats Cardiovascular Cardiovascular: Denies chest pain, orthopnea or palpitations Respiratory/Chest Respiratory/Chest: Denies dyspnea, dyspnea on exertion or orthopnea Gastrointestinal Gastrointestinal: Denies abdominal pain, nausea or vomiting Genitourinary Genitourinary ED: Denies dysuria, hematuria or urinary frequency Musculoskeletal Musculoskeletal: Reports back pain; Denies arthralgias or myalgias Integumentary Denies rash Neurologic Neurologic: Denies paresthesias or weakness Hematologic/Lymphatic Hematologic/Lymphatic: Denies easy bleeding or easy bruising EXAM <Dr. Victoriano Boykin MD - Last Filed: 08/20/25 11:27> Physical Exam Const Vital Signs: 08/19/25 14:03 08/19/25 18:03 08/19/25 18:57 Temperature 97 F L 97.8 F Temperature Source Temporal Pulse Rate 60 78 91 Respiratory Rate 25 H 16 16 Blood Pressure 127/108 H 139/78 H 141/78 H Blood Pressure Mean 114 98 99 Pulse Ox 97 98 99 Oxygen Delivery Method Room Air Room Air Positive well nourished and well developed Constitutional Narrative: Patient appears uncomfortable he is laying on the examination cart. General Appearance ED: well developed HEENT Reports moist mucous membranes HEENT Narrative: Unremarkable Eyes PERRL and EOMs intact bilaterally General Eye ED: Negative for scleral icterus Neck no lymphadenopathy, supple and no JVD Resp normal respiratory effort Cardio regular rate and regular rhythm GI normal to inspection, nondistended, normoactive bowel sounds, soft to palpation, non-tender, non-distended and no masses GI Narrative: No palpable pulsatile mass or abdominal bruit. Back/Spine normal to inspection and no thoracic nor lumbar tenderness Back/Spine Narrative: Straight leg test is negative right and left. Femoral stretch test is negative right and left. Patient has no patellar or ankle reflex on either side. EHL is intact bilaterally. Gait was observed. There was no foot drop. Able to walk on heels and toes. Able to perform 1 legged squat right leg. 1 legged squat left leg patient was unable to rise and leg buckled. He also was experiencing pain. Thoracic Spine / Upper Back: Negative for paraspinal muscle tenderness Lumbar Spine / Lower Back: ROM limited and straight leg raise negative bilaterally Extremity normal to inspection and no clubbing, cyanosis or edema Neuro oriented x3 and no sensory deficits noted Deep Tendon Reflexes: Rt Patellar (L4): 0, Lt Patellar (L4): 0, Rt Ankle (S1): 0 and Lt Ankle (S1): 0 Deep Tendon Reflexes Back: Rt Patellar (L4): 0, Lt Patellar (L4): 0, Rt Ankle (S1): 0 and Lt Ankle (S1): 0 Plantar Reflex: Downgoing: bilateral (There is no clonus bilaterally.) Psych mental status grossly normal Skin no rashes or lesions noted and no wounds <Dr. Kenji Gamboa, DO - Last Filed: 08/19/25 18:50> Physical Exam Const Vital Signs: 08/19/25 14:03 08/19/25 18:03 08/19/25 18:57 Temperature 97 F L 97.8 F Temperature Source Temporal Pulse Rate 60 78 91 Respiratory Rate 25 H 16 16 Blood Pressure 127/108 H 139/78 H 141/78 H Blood Pressure Mean 114 98 99 Pulse Ox 97 98 99 Oxygen Delivery Method Room Air Room Air MDM <Dr. Victoriano Boykin MD - Last Filed: 08/20/25 11:27> [facility] Narrative Medical decision making narrative: IV was established. He was medicated with Dilaudid for his pain. Since patient has buckling of his knee with weakness of the quadricep absent reflex and pain in L3 dermatome will obtain MRI of his back to assess for acute herniated disc and specifically lateral extrusion which will require urgent intervention. His history and physical not consistent with cauda equina, epidural abscess or spontaneous epidural hematoma. He is not on anticoagulant. X-rays from outside facility reveals osteoarthritis of his hip. There is no findings of avascular necrosis. Radiography Chest X-Ray - ED: Read by ED Physician (X-ray of orbits was ordered by radiology to assess for foreign body. Dr. Skaggs's interpretation was read.) Diagnostic Testing: Clinical Impression(s) from Imaging Studies Lumbar Spine MRI 08/19/25 14:30 IMPRESSION: 1. Mild multilevel spondylotic changes, as described. 2. Dorsal disc bulge and left subarticular disc extrusion at L3-4, effacing the left lateral recess likely with impingement of the left L3 and/or L4 nerve roots. 3. Mild-moderate bilateral neural foraminal narrowing at L3-4, L4-5, and L5-S1. Reading Location: [facility] Orbit X-Ray 08/19/25 15:10 IMPRESSION: No radiopaque foreign bodies. Reading Location: [facility] Treatment and Re-Evaluation Narrative: The afternoon physician was made aware of Mr. Kay. Disposition pending MRI results. <Dr. Kenji Gamboa DO - Last Filed: 08/19/25 18:50> [facility] Radiography Diagnostic Testing: Clinical Impression(s) from Imaging Studies Lumbar Spine MRI 08/19/25 14:30 IMPRESSION: 1. Mild multilevel spondylotic changes, as described. 2. Dorsal disc bulge and left subarticular disc extrusion at L3-4, effacing the left lateral recess likely with impingement of the left L3 and/or L4 nerve roots. 3. Mild-moderate bilateral neural foraminal narrowing at L3-4, L4-5, and L5-S1. Reading Location: [id number] Orbit X-Ray 08/19/25 15:10 IMPRESSION: No radiopaque foreign bodies. Reading Location: [facility] Treatment and Re-Evaluation Narrative: The afternoon physician was made aware of Mr. Kay. Disposition pending MRI results. Care of the patient was turned over to me pending MRI results. MRI was reviewed. There is left disc herniation at L3-L4 with impingement of the left L3 and/or L4 nerve roots. There is mild to moderate bilateral neural foramina stenosis at L3-4, L4-5, and L5-S1. There are some degenerative changes noted as well. This was interpreted by the radiologist and was also independently reviewed by myself. Patient was given a repeat dose of Dilaudid here. Patient was advised of his findings. Patient was given a prescription for Percocet. Patient was instructed to follow-up with an orthopedic air traffic control specialist. Patient was given a referral for Dr. Collier here. Since the patient has been established at [facility] in [place], patient was also recommended to call their office to see if they can be seen by an orthopedic spine surgeon there. Patient was instructed to continue ice and heat. Patient was instructed to return if any loss of control of his bowels or bladder, perianal and perineal numbness, or if worse in any way. Discharge Plan Triage Chief Complaint: Lower Extremity Injury ED Provider: Victoriano Boykin Dx/Rx/DC Orders Clinical Impression: Acute left lumbar radiculopathy, Elevated blood pressure reading Instructions: Understanding Lumbar Radiculopathy, ED Back Pain (Acute or Chronic), ED Sciatica Prescriptions: New oxycodone-acetaminophen 5-325 mg tablet 1 tab PO Q6H PRN PRN (Reason: pain) 5 Days Qty: 20 0RF No Action acetaminophen [Acetaminophen Extra Strength] 500 mg tablet 1,000 mg PO Q6H PRN (Reason: pain) ibuprofen 600 mg tablet 600 mg PO Q6H PRN (Reason: fever or pain) Qty: 20 0RF ciprofloxacin HCl [Cipro] 500 mg tablet 500 mg PO BID Qty: 10 0RF phenazopyridine [Pyridium] 200 mg tablet 200 mg PO TID 5 Days Qty: 15 0RF hydrocodone-acetaminophen 5-325 mg tablet 1 tab PO Q6H PRN PRN (Reason: Pain) 3 Days Qty: 10 0RF naproxen 500 mg tablet 500 mg PO BID Qty: 10 0RF Primary Care Provider: Paulino Troy NP Referrals: Seymour Collier MD [Med Staff - Active Staff, Orthopedics] - 5-7 Days Paulino Troy NP, [employer] [Primary Care Provider, Medical] - 3-5 Days Print Language: Danish Disposition Disposition: Home, Self Care Discharge Date/Time: 08/19/25 19:33
[2025-08-19 18:03] VITALS: BP 139/78; PULSE 78; RESP 16; O2SAT 98
[2025-08-19 18:57] VITALS: BP 141/78; PULSE 91; RESP 16; TEMP 36.6; O2SAT 99
== END 2025-08-19 19:33 | disposition home or self-care (01) ==
PROVIDERS: Emergency Provider Emergency Medicine; PCP Nurse Practitioner Primary Care; Visit Provider Emergency Medicine
DX: M51.16 Intervertebral disc disorders with radiculopathy, lumbar region (principal); G89.29 Other chronic pain; M48.07 Spinal stenosis, lumbosacral region; M48.061 Spinal stenosis, lumbar region without neurogenic claudication; R03.0 Elevated blood-pressure reading, without diagnosis of hypertension; F17.200 Nicotine dependence, unspecified, uncomplicated; Z79.899 Other long term (current) drug therapy
CPT/HCPCS: 70030; 72148; 96374; 96375; 96376; 99283; J2405

== ENCOUNTER 2025-08-31 10:46 | Emergency (ER) | payer OTHER, SELFPAY ==
[2025-08-31 10:47] VITALS: BP 161/105; PULSE 95; RESP 20; TEMP 36.6; O2SAT 99
--- NOTE | 2025-08-31 11:30 | ED.VIS.BACK ---
HPI History of Present Illness Chief Complaint: Back Informant: patient and spouse/S.O. Narrative Narrative: Patient is a 70-year-old male presenting to the ED with severe back pain and recent episodes of bowel and bladder incontinence. Patient is accompanied by his , who is supplementing history. - History obtained from patient and at bedside. - Sustained a work-related injury on 06/27, resulting in a ruptured L3 disc. - MRI performed approximately 1.5 weeks ago. - Unable to see a back surgeon until 09/17. - Reports severe back pain radiating down the leg to the ankle, worsening today. - Denies any recent trauma or re-injury. - Experiencing bowel and bladder incontinence over the weekend. - Has not slept in 3 days due to pain. - Currently taking extra strength Tylenol and naproxen. - Previously prescribed a steroid taper, Percocet, tramadol, and other anti-inflammatories; Percocet was ineffective and caused nausea. Prior similar symptoms: Yes and With Prior Back Pain (no new symptoms now) PFSH PFS Medical History Loose, teeth Cancer Restless legs Back pain Hoarseness History of pain when walking History of edema Acute blood loss anemia Acute UTI Edema of right lower leg Anemia Wears glasses Alcohol use Arthritis Smoker Bladder mass Hearing loss, left Hearing loss, right Home Medications ?Medication ?Instructions ?Recorded ?Last Taken ?Type acetaminophen 500 mg tablet 1,000 mg PO Q6H PRN pain 08/05/24 Unknown History (Acetaminophen Extra Strength) ibuprofen 600 mg tablet 600 mg PO Q6H PRN fever or pain 08/15/24 Unknown Rx #20 tabs ciprofloxacin HCl 500 mg tablet 500 mg PO BID #10 tabs 10/09/24 Unknown Rx (Cipro) phenazopyridine 200 mg tablet 200 mg PO TID 5 days #15 tabs 10/09/24 Unknown Rx (Pyridium) naproxen 500 mg tablet 500 mg PO BID #10 tabs 05/02/25 Unknown Rx tramadol 50 mg tablet 50 mg PO Q6H PRN pain 3 days #10 08/31/25 Unknown Rx tabs Allergy/AdvReac Type Severity Reaction Status Date / Time No Known Allergies Allergy Verified 08/31/25 10:49 Surgical History Hx of surgical procedure Hx of surgical amputation of finger Hx of hernia repair History of transurethral resection of bladder tumor (TURBT) Social History household members: spouse Smoking Status: Light Smoker (<10/day) substance use type: does not use ROS ROS ED Constitutional Constitutional ED: Denies chills or fever(s) Gastrointestinal Gastrointestinal: Denies abdominal pain, constipation, fecal incontinence, nausea or vomiting Genitourinary Genitourinary ED: Reports urinary incontinence and other Details: no urinary retention ; Denies abdominal discomfort Musculoskeletal Musculoskeletal: Reports as per HPI and back pain; Denies neck pain Integumentary Denies rash or wounds Neurologic Neurologic: Denies headache(s), paresthesias or weakness EXAM Physical Exam Const Vital Signs: 08/31/25 10:47 Temperature 98 F Temperature Source Temporal Pulse Rate 95 Respiratory Rate 20 H Blood Pressure 161/105 H Blood Pressure Mean 123 Pulse Ox 99 Oxygen Delivery Method Room Air Positive well nourished and well developed Constitutional Narrative: Lying right lateral decubitus, resistant to move, is rubbing his back for him. No distress currently while resting. General Appearance ED: well developed and NAD HEENT Negative for trauma or tenderness Eyes PERRL and EOMs intact bilaterally Neck full ROM and supple GI normal to inspection, nondistended, normoactive bowel sounds, soft to palpation and non-tender Back/Spine normal to inspection Lumbar Spine / Lower Back: ROM limited, paraspinal muscle tenderness left and straight leg raise negative bilaterally; Negative for lumbar spinal tenderness Extremity normal to inspection, full ROM and no pedal edema Neuro oriented x3 and no sensory deficits noted Sensorium / Orientation: alert Motor Exam: strength 5/5 throughout and clonus absent Deep Tendon Reflexes: Rt Patellar (L4): 1+, Lt Patellar (L4): 1+, Rt Ankle (S1): 1+ and Lt Ankle (S1): 1+ Deep Tendon Reflexes Back: Rt Patellar (L4): 1+, Lt Patellar (L4): 1+, Rt Ankle (S1): 1+ and Lt Ankle (S1): 1+ Plantar Reflex: Downgoing: bilateral Psych mental status grossly normal and thought process normal Skin no rashes or lesions noted and no wounds MDM MDM MDM Narrative Medical decision making narrative: Assessment: The patient is a 70-year-old male presenting for severe lumbar pain with left-sided radicular symptoms after an L3-4 disc extrusion identified on outpatient MRI performed roughly 08/19/2025. He reports intermittent bowel and bladder incontinence since the original injury on 06/27 but no acute worsening today. Exam demonstrates focal mid-lumbar tenderness with radiation down the left leg; neurologic exam unchanged from prior visit. MRI shows multilevel spondylotic changes with left subarticular disc extrusion at L3-4 effacing the left lateral recess and likely impinging the L3/L4 nerve roots, without severe canal stenosis to mandate emergent surgery. Given imaging and clinical presentation, intervertebral disc disorder with lumbar radiculopathy is the most likely cause of his acute low back pain. Plan: - Administered IV morphine for analgesia and IV Zofran for anti-emetic prophylaxis. - Provided prescription for short course of tramadol for breakthrough pain; patient prefers this over oxycodone. - Admission discussed for pain control; patient and declined after pain improvement and securing expedited spine appointment. - Discharged home with instructions to keep emergency appointment with [facility] tomorrow for surgical evaluation ( able to secure during visit here). Diagnostics: - Lumbar spine MRI (~08/19/2025) reviewed: multilevel spondylotic changes, dorsal disc bulge, left subarticular disc extrusion at L3-4 effacing left lateral recess with probable L3/L4 nerve root impingement; mild?moderate bilateral neuroforaminal narrowing at L3-4, L4-5, L5-S1. Independently interpreted by me, Vahe Mullen. Reevaluations: - Patient re-evaluated after IV morphine/Zofran: resting supine with legs crossed, pain markedly improved, comfortable, no new neurologic deficits. History & Record Review Additional record(s) reviewed:: Other Discharge Plan Triage Chief Complaint: Back ED Provider: Vahe Mullen Dx/Rx/DC Orders Clinical Impression: Acute low back pain, Intervertebral disc disorders with radiculopathy, lumbosacral region Instructions: ED Back Pain (Acute or Chronic) Prescriptions: New tramadol 50 mg tablet 50 mg PO Q6H PRN (Reason: pain) 3 Days Qty: 10 0RF Continued acetaminophen [Acetaminophen Extra Strength] 500 mg tablet 1,000 mg PO Q6H PRN (Reason: pain) ibuprofen 600 mg tablet 600 mg PO Q6H PRN (Reason: fever or pain) Qty: 20 0RF ciprofloxacin HCl [Cipro] 500 mg tablet 500 mg PO BID Qty: 10 0RF phenazopyridine [Pyridium] 200 mg tablet 200 mg PO TID 5 Days Qty: 15 0RF naproxen 500 mg tablet 500 mg PO BID Qty: 10 0RF Discontinued hydrocodone-acetaminophen 5-325 mg tablet 1 tab PO Q6H PRN PRN (Reason: Pain) 3 Days Qty: 10 0RF oxycodone-acetaminophen 5-325 mg tablet 1 tab PO Q6H PRN PRN (Reason: pain) 5 Days Qty: 20 0RF Primary Care Provider: Paulino Troy NP Referrals: [facility] [Other, Orthopedics] - Keep Pieter appointment Activity Restrictions/Additional Instructions: You may take the tramadol as needed for pain along with naproxen and acetaminophen if needed, but avoid taking tramadol along with either hydrocodone or oxycodone as these can block the effects of it. Print Language: Maori Disposition Disposition: Home, Self Care
[2025-08-31 12:29] VITALS: BMI 27.8
[2025-08-31 14:36] VITALS: BP 171/113; PULSE 89; RESP 18; TEMP 36.8; O2SAT 97
== END 2025-08-31 14:50 | disposition home or self-care (01) ==
PROVIDERS: Emergency Provider Emergency Medicine; PCP Nurse Practitioner Primary Care; Visit Provider Emergency Medicine
DX: M51.17 Intervertebral disc disorders with radiculopathy, lumbosacral region (principal); R32 Unspecified urinary incontinence; R15.9 Full incontinence of feces; M51.26 Other intervertebral disc displacement, lumbar region; M47.896 Other spondylosis, lumbar region; F17.200 Nicotine dependence, unspecified, uncomplicated; Z79.899 Other long term (current) drug therapy
CPT/HCPCS: 96374; 96375; 99283; A4216; J2405

== ENCOUNTER 2025-09-19 06:43 | Emergency (ER) | payer OTHER, MEDICARE, SELFPAY ==
[2025-09-19] VITALS (12 sets, daily range): BP systolic 107–163; BP diastolic 67–95; PULSE 74–98; RESP 14–32; TEMP 36.6–37.1; O2SAT 95–100; BMI 27.6
--- NOTE | 2025-09-19 07:19 | EKG12_ITS ---
Test Reason : Blood Pressure : */* mmHG Vent. Rate : 95 BPM Atrial Rate : 95 BPM P-R Int : 156 ms QRS Dur : 90 ms QT Int : 366 ms P-R-T Axes : 26 -7 24 degrees QTcB Int : 459 ms Sinus rhythm with Premature supraventricular complexes Otherwise normal ECG Confirmed by FRANCISCO SCHERER, TIARA ([id number]), editor & co founder ALEXANDER DOSS ([id number]) on 09/21/2025 9:08:30 AM Referred By: Confirmed By: TIARA SINGH MD
--- NOTE | 2025-09-19 07:19 | VDLE_ITS ---
Reason For Study Reason For Study: Left leg pain RIGHT LEFT No contralateral images due to patient pain. GSV is normal. Procedure Acute deep vein thrombosis is noted in the EIV, CFV, This is a venous duplex using B-mode, color flow and and FV throughout. It is dilated and NONCOMPRESSIBLE. spectral Doppler. POP V is compressible, spontaneous, phasic, competent Exam performed portable in ED. and demonstrates normal augmentation. A preliminary report was called and/or faxed to [facility] Trunk is compressible. Yovanny. PTV is compressible. LT PerV is compressible. VL/Venous Duplex US, Unilateral Interpretation Summary Acute deep vein thrombosis is noted in the left external iliac vein. Acute deep vein thrombosis is noted in the left common femoral vein. Acute deep vein thrombosis is noted in the left femoral ve in. The remainder of the left lower extremity deep venous system is patent and compressible. The left great sapheno us vein is patent and compressible. Ordering Physician: Sharif Hairston Referring Physician: Paulino Troy Performed By: Letty Desai RVT
--- OUTSIDE RECORDS SUMMARY | 2025-09-19 07:25 | XMS RPT_ITS | CCD ---
Author Organization [facility] Care Team Providers Care Manager Integrated Name Role Phone DANNY NAIK, CELINA Primary Care Physician [phone] Danny INSTRUCTOR HAIRSPRING, INSTRUCTOR HAIRSPRING-C Celina Primary Care Provider [phone] Dr. Dennis Delatorre Attending Provider [phone] Dr. Jaron Nuñez Emergency Provider Dr. Freddie Acevedo Other Provider [phone] Dr. Ervin Anderson Admit Provider [phone] Dr. Ervin Anderson Attending Provider Dr. Ervin Anderson Other Provider Dr. William iNcole Attending Provider Dr. Freddie Acevedo Referring Provider Dr. Breann Graham Attending Provider Dr. Breann Graham Other Provider DANNY CHAVEZ-KIRBY, CELINA Primary Care ALEM Esteban MD Attending Unavailable COSMETES IMPLEMENTATION COORDINATOR-CUSTOM CAR BUILDER, CELINA Primary Care Unavailabl e BALTES IMPLEMENTATION COORDINATOR-CUSTOM CAR BUILDER, CELINA Attending Unavailabl e BALTES IMPLEMENTATION COORDINATOR-CUSTOM CAR BUILDER, CELINA Primary Care Unavailabl e BALTES IMPLEMENTATION COORDINATOR-CUSTOM CAR BUILDER, CELINA Attending Unavailabl e BALTES IMPLEMENTATION COORDINATOR-CUSTOM CAR BUILDER, CELINA Primary Care Unavailabl DR TROY Alfaro DO Attending Unavailable Danny INSTRUCTOR HAIRSPRING-C, Celina Primary Care Provider Ashutosh SCHERER, Dr. Pastrana Referring Provider [phone] Victoriano Boykin MD Emergency Provider Danny INSTRUCTOR HAIRSPRING-C, Celina Primary Care Physician [phone] Ashutosh SCHERER, Dr. Pastrana Attending Physician Ashutosh SCHERER, Dr. Pastrana Emergency Department Physician Paz SCHERER, Dr. Cotter Emergency Department Phys ician SUSANA CASTANO DO Attending Unavailable BALTES IMPLEMENTATION COORDINATOR-CUSTOM CAR BUILDER, CELINA Primary Care Unavailjeffery BOTELLO MD, AMARJIT Thomason Attending Unavailable BALTES IMPLEMENTATION COORDINATOR-CUSTOM CAR BUILDER, CELINA Primary Care Unavailabl e BALTES IMPLEMENTATION COORDINATOR-CUSTOM CAR BUILDER, CELINA Primary Care Unavailabl e BALTES IMPLEMENTATION COORDINATOR-CUSTOM CAR BUILDER, CELINA Attending Unavailabl e Ashutosh, Victoriano Attending Unavailable Victoriano Boykin Referring Unavailable Baltes INSTRUCTOR HAIRSPRING, Celina Primary Care Unavailable Victoriano Boykin Attending Unavailable Baltes INSTRUCTOR HAIRSPRING, [place] Primary Care Unavailable Dennis Little Unavailable Baltes INSTRUCTOR HAIRSPRING, [place] Primary Care Unavailable Freddie Acevedo Admitting Unavailable Freddie Acevedo Attending Unavailable Vahe Mullen Attending Unavailable Baltes INSTRUCTOR HAIRSPRING, [place] Primary Care Unavailable BALTES, [place] Primary Care Unavailable CLAUS BOTELLO Admitting Unavailable WAKE, CLAUS Thomason Attending Unavailable BALTES, [place] Primary Care Unavailable KEENA BENÍTEZ Consulting Unavailable Medications Current Medications Medication Drug Class(es) Dates Sig (Normalized) Sig (Original) acetaminophen 500 mg oral tablet (6 sources) Start: 08-05-2024 take 2 tablets by mouth every six hours as needed for pain Start: 06-28-2020 Tylenol Extra Strength 500 mg oral tablet Dose : 1,000 mg = 2 tab(s), Oral, q4h, PRN as needed for pain, # 120 tab(s), 0 Refill(s) Start Date: 06/28/20 Status: Ordered Medication Dispense Status: Completed Quantity: 120.0 Unit: tab(s) Total Allowed Fills: 1 Fills Dispensed: 0 acetaminophen 325 mg / HYDROcodone bitartrate 5 mg oral tablet (2 sources) Opioid Agonist Start: 05-02-2025 End: 08-31-2025 Hydrocodone-Acetaminophen 5- 325 mg tablet Discontinued 1 {tbl} PO EVERY 6 HOURS NEEDED as needed for Pain 10 3 0 May 02, 2025 August 31, 2025 2:19pm Osteoarthritis of right shoulder Injury of right quadriceps femoris muscle Contusion of right upper extremity Primary osteoarthritis, right shoulder Contusion of right upper arm, initial encounter acetaminophen 325 mg / oxyCODONE hydrochloride 5 mg oral tablet (3 sources) Opioid Agonist Start: 08-19-2025 End: 08-31-2025 Oxycodone-Acetaminophen 5-32 5 mg tablet Discontinued 1 {tbl} PO EVERY 6 HOURS NEEDED as needed for pain 20 5 0 August 19, 2025 August 31, 2025 2:19pm Acute left lumbar radiculopathy Radiculopathy, lumbar region Start: 05-26-2021 take 1 tablet by fabian th every six hours Oxycodone-Acetaminophen Active 1 TABLET PO EVERY 6 HOURS [...] qDay, # 90 tab(s), 3 Refill(s), Pharmacy: [facility]/pharmacy #[id number], Hyperlipidemia, 166.37, cm, 04/28/21 8:10:00 EDT, Height, [...] Date: 10/29/23 Stop Date: 11/08/23 Status: Ordered Chondroitin Sulfates / Glucosamine (1 source) Start: 02-04-2025 take 1 capsule by mouth once daily Chondroitin-Glucosam ine Dose = 2 cap(s), Oral, qDay, MSM, 0 Refill(s) Start Date: 02/04/25 Status: Ordered Medication Dispense Status: Completed Total Allowed Fills: 1 Fills Dispensed: 0 ciprofloxacin 500 mg oral tablet (4 sources) Quinolone Antimicrobial Start: 10-09-2024 take 1 tablet by mouth twice daily Start: 05-26-2021 take 1 tablet by fabian th twice daily Ciprofloxacin Hcl (Cipro) 500 mg tablet Active 500 MG PO TWICE A DAY May 26, 2021 5:25pm ibuprofen 600 mg oral tablet (2 sources) Nonsteroidal Anti-inflammatory Drug Start: 08-15-2024 take 1 tablet by mouth every six hours as needed for pain methylPREDNISolone 4 mg oral tablet (1 source) Corticosteroid Start: 07-21-2025 End: 07-27-2025 take 1 tablet by mouth once daily Medrol 4 mg oral tablet 1 packet(s), Oral, qDay, as directed on package labeling, X 6 day(s), # 21 tab(s), 0 Refill(s), 07/27/25 9:11:00 AM EDT, Pharmacy: [facility]/pharmacy #[id number], Left hip pain Left sided sciatica, 165.5, cm, 07/21/25 8:53:00 EDT, Height, kg, 07/21/25 8:53:00 EDT, Dosing Weight Start Date: 07/21/25 Stop Date: 07/27/25 Status: Ordered Medication Dispense Status: Completed Quantity: 21.0 Unit: tab(s) Total Allowed Fills: 1 Fills Dispensed: 0 Indications: Pain in left hip; Sciatica, left side; naproxen 500 mg delayed release oral tablet (3 sources) Nonsteroidal Anti-inflammatory Drug Start: 08-19-2025 End: 09-18-2025 naproxen 500 mg oral delayed release tablet Dose : 500 mg = 1 tab(s), Oral, BID, PRN as needed for arthritis, X 30 day(s), # 30 tab(s), 0 Refill(s), 09/18/25 6:33:00 AM EST, Pharmacy: [facility]/pharmacy #[id number], Hip pain, 166, cm, 07/29/25 12:31:00 EDT, Height, kg, 07/29/25 12:31:00 EDT, Dosing Weight Start Date: 08/19/25 Stop Date: 09/18/25 Status: Ordered Medication Dispense Status: Completed Quantity: 30.0 Unit: tab(s) Total Allowed Fills: 1 Fills Dispensed: 0 Indications: Pain in unspecified hip; Start: 05-02-2025 take 1 tablet by mouth twice d aily phenazopyridine hydrochloride 200 mg oral tablet (2 sources) Start: 10-09-2024 take 1 tablet by mouth three times daily tiZANidine 4 mg oral tablet (1 source) Central alpha-2 Adrenergic Agonist Start: 07-29-2025 tiZANidine 4 mg oral tablet 0 Refill(s) Start Date: 07/29/25 Status: Ordered Medication Dispense Status: Completed Total Allowed Fills: 1 Fills Dispensed: 0 traMADol hydrochloride 50 mg oral tablet (2 sources) Opioid Agonist Start: 08-31-2025 take 1 tablet by mouth every six hours as needed for pain Start: 07-29-2025 traMADol 50 mg oral tablet 0 Refill(s), 77.6 Start Date: 07/29/25 Status: Ordered Medication Dispense Status: Completed Total Allowed Fills: 1 Fills Dispensed: 0 valsartan 80 mg oral tablet (1 source) Angiotensin 2 Receptor Fritz Start: 09-02-2025 End: 10-07-2026 valsartan 80 mg oral tablet Dose : 80 mg = 1 tab(s), Oral, Daily, # 100 tab(s), 3 Refill(s), Pharmacy: [facility]/pharmacy #[id number], Hypertension, 166, cm, 07/29/25 12:31:00 EDT, Height, kg, 07/29/25 12:31:00 EDT, Dosing Weight Start Date: 09/02/25 Stop Date: 10/07/26 Status: Ordered Medication Dispense Status: Completed Quantity: 100.0 Unit: tab(s) Total Allowed Fills: 4 Fills Dispensed: 0 Indications: Essential (primary) hypertension; Completed/Discontinued Medications Medication Drug Class(es) Dates Sig (Normalized) Sig (Original) cefdinir 300 mg oral capsule (3 sources) Cephalosporin Antibacterial Start: 11-29-2023 End: 08-05-2024 take 1 capsule by mouth twice daily Cefdinir 300 mg capsule Discontinued 300 mg PO TWICE A DAY 10 November 29, 2023 1:00am August 05, 2024 11:02am sulfamethoxazole 800 mg / trimethoprim 160 mg oral tablet (3 sources) Dihydrofolate Reductase Inhibitor Antibacterial, Sulfonamide Antimicrobial Start: 11-29-2023 End: 08-05-2024 Sulfamethoxazole- Trimethoprim 800-160 mg Tablet Discontinued 1 {tbl} PO TWICE DAILY WITH MEALS November 29, 2023 1:00am August 05, 2024 11:02am Start: 11-29-2023 take 1 tablet by fabian twice daily at mealtime Sulfamethoxazole-Trimethoprim Active 1 TABLET PO TWICE DAILY WITH MEALS November 29, 2023 12:00am tamsulosin hydrochloride 0.4 mg oral capsule (4 sources) alpha-Adrenergic Fritz Start: 11-26-2023 End: 08-05-2024 take 1 capsule by mouth at bedtime Tamsulosin 0.4 mg capsule Discontinued 0.4 mg PO AT BEDTIME November 26, 2023 1:00am August 05, 2024 11:02am PROSTATE Problems Active Problems Problem Classification Problem Date Documented Date Episodic/Chronic Acute and chronic tonsillitis (4 sources) Exudate on tonsils 04-14-2020 Chronic Acute posthemorrhagic anemia (6 sources) Acute posthemorrhagic anemia; Translations: [Acute posthemorrhagic anemia] Onset: 024 11-26-2023 Episodic Allergic reactions (2 sources) Allergic reaction to drug; Translations: [Allergy, unspecified, initial encounter] 10-06-2024 Episodic Cancer of bladder (7 sources) Malignant neoplasm of bladder, unspecified; Translations: [Malignant tumor of urinary bladder] Onset: Chronic Cancer; other and unspecified primary (4 sources) H/O: malignant neoplasm 03-30-2022 Episodic Chronic obstructive pulmonary disease and bronchiectasis (4 sources) Pulmonary emphysema 05-05-2020 Chronic Comment on above: Mild on screening amaury ng CT 04/24, patient asymptomatic Coronary atherosclerosis and other heart disease (4 sources) Calcification of coronary artery 05-04-2020 Chronic Deficiency and other anemia (3 sources) Anemia; Translations: [Anemia, unspecified] 11-26-2023 Episodic Deficiency and other anemia (1 source) Anemia, unspecified; Translations: [Anemia, unspecified] 11-29-2023 Episodic Disorders of lipid metabolism (4 sources) Hyperlipidemia 04-19-2020 Chronic Comment on above: 04/24 ascvd risk 8.1% Essential hypertension (2 sources) Hypertensive disorder; Translations: [Essential (primary) hypertension] Onset: 025 07-29-2025 Chronic Heart valve disorders (2 sources) Heart murmur 08-06-2024 Episodic Lymphadenitis (4 sources) Disorder of intra-abdominal lymph nodes 05-04-2020 Episodic Comment on above: Benign-appearing on low-dose CT 04/24 Osteoarthritis (2 sources) Osteoarthritis of joint of right shoulder region; Translations: [Primary osteoarthritis, right shoulder] 05-02-2025 Chronic Other aftercare (4 sources) Long-term current use of anticoagulant 01-23-2022 Episodic Other circulatory disease (2 sources) Elevated blood-pressure reading without diagnosis of hypertension; Translations: [Elevated blood-pressure reading, without diagnosis of hypertension] 05-02-2025 Episodic Other circulatory disease (1 source) Elevated blood pressure; Translations: [Elevated blood-pressure reading, without diagnosis of hypertension] 08-27-2025 Episodic Other connective tissue disease (2 sources) Other specified soft tissue disorders; Translations: [Other specified soft tissue disorders] Onset: Episodic Other diseases of bladder and urethra (5 sources) Mass of urinary bladder; Translations: [Other specified disorders of bladder] 05-26-2021 Chronic Other diseases of bladder and urethra (3 sources) Other specified disorders of bladder; Translations: [Other specified disorders of bladder] Onset: 024 11-29-2023 Chronic Other infections; including parasitic (4 sources) History of herpes zoster 04-14-2020 Episodi c Other injuries and conditions due to external causes (2 sources) Unspecified injury of right quadriceps muscle, fascia and tendon, initial encounter; Translations: [Injury of right quadriceps femoris muscle] 05-02-2025 Episodic Other injuries and conditions due to external causes (1 source) Unspecified injury of unspecified lower leg, initial encounter; Translations: [Unspecified injury of unspecified lower leg, initial encounter] Onset: Episodic Other liver diseases (4 sources) Elevated liver enzymes level 04-19-2020 Epi sodic Other lower respiratory disease (4 sources) Wheezing 04-14-2020 Episodic Other nervous system disorders (2 sources) Disorder of left sciatic nerve 07-21-2025 Chronic Other non-traumatic joint disorders (2 sources) Hip pain 07-21-2025 Episodic Other nutritional; endocrine; and metabolic disorders (4 sources) 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 Un likely to have clinical significance per pathology report Other screening for suspected conditions (not mental disorders or infectious disease) (5 sources) Encounter for screening for lipoid disorders; Translations: [Encounter for screening for malignant neoplasm of prostate] Onset: Episodic Peripheral and visceral atherosclerosis (4 sources) Atherosclerosis of aorta 05-04-2020 Chronic Phlebitis; thrombophlebitis and thromboembolism (5 sources) Portal vein thrombosis; Translations: [Portal vein thrombosis] Onset: 01-23-2022 Episodic Residual codes; unclassified (3 sources) Edema of right lower leg; Translations: [Localized edema] 11-26-2023 Episodic Residual codes; unclassified (1 source) Localized edema; Translations: [Edema] 11-29-2023 Episodic Residual codes; unclassified (2 sources) Tobacco use; Translations: [Tobacco use] Onset: Episodic Residual codes; unclassified (1 source) Genetic susceptibility to other disease; Translations: [Heterozygous for MTHFR gene mutation] Onset: Episodic Spondylosis; intervertebral disc disorders; other back problems (6 sources) Lumbar radiculopathy; Translations: [Radiculopathy, lumbar region] Onset: 08-27-2025 Episodic Substance-related disorders (1 source) Nicotine dependence, unspecified, uncomplicated; Translations: [Tobacco dependence] Onset: Chronic Superficial injury; contusion (3 sources) Contusion of right upper arm, initial encounter; Translations: [Contusion of right upper extremity] Onset: 05-02-2025 Episodic Unclassified (4 sources) Long-term current use of aspirin 01-23-2022 Unclassified (16 sources) Patient encounter status 04-14-2020 Urinary tract infections (4 sources) Acute urinary tract infection; Translations: [Urinary tract infection, site not specified] 11-26-2023 Episodic Past or Other Problems Problem Classification Problem Date Documented Da te Episodic/Chronic Genitourinary symptoms and ill-defined conditions (11 sources) Parrish hematuria; Translations: [Gross hematuria] Onset: 10-16-2024 05-26-2021 Episodic Other non-traumatic joint disorders (1 source) Pain in right shoulder; Translations: [Pain in right shoulder] Onset: 05-06-2025 Episodic Results Test Name Value Interpretation Reference Range Facility [facility] 09-15-2025 CNDS HNO ID: [id number] Author: CLAUS BOTELLO MD Service: Orthopaedic Surgery Author Type: Physician Type: Discharge Summary Filed: 09/15/2025 07:02 Note Text: Orthopedic spine discharge summary Admission date: 09/09/2025 Discharge date: 09/15/2025 Attending physician: Claus botello MD Consulting physician: Keena Benítez MD Hospital course: Leilani is a 70-year-old gentleman who came in on the day of admission for an elective L3 and superior L4 laminectomy with L3-4 discectomy. He tolerated the procedure well. He had some of his left L4 radicular pain but still had fairly miserable and debilitating left L3 radicular pain. A repeat MRI showed continued stenosis in the foramen at the L3-4 level. Treatment options were discussed and it was elected to return to the operating room for a more aggressive decompression with facetectomy and L3-L5 instrumented fusion. For further details of the procedure, please see the operative note. He tolerated that procedure well and his left leg pain was significantly better. After being able to get his drain out, he was felt to be stable for discharge to home from both a medical and orthopedic standpoint. Assessment: 1. Status post L3 and superior L4 laminectomy with L3-4 discectomy 2. Status post revision L3-4 decompression with L3-L5 instrumented fusion 3. History of bladder cancer 4. Hypertension 5. Tobacco abuse Plan: He will be discharged home on Percocet 5 mg and Flexeril 10 mg as needed. We encouraged smoking cessation and discussed the risk of pseudoarthrosis. He will follow-up in the office in 2 weeks time. He will follow-up with his primary care physician. [facility] CONSULT PROGon 09-15-2025 CONSULT PROG HNO ID: [id number] Author: KEENA BENÍTEZ MD Service: ? Author Type: Physician Type: Consult Progress Note Filed: 09/15/2025 07:06 Note Text: SERVICE CONSULT PROGRESS NOTE SERVICE DATE: 09/15/2025 SERVICE TIME: 7:06 AM Subjective INTERVAL HPI: Uneventful night. Pain is about 4 out of 5 out of 10. Positive flatus. Current Facility-Administere d Medications Medication Dose Route Frequency dextrose 5% in NaCl 0.45% with 20 mEq/L KCl iv infusion 75 mL/hr INTRAVENOUS CONTINUOUS acetaminophen 325-650 mg tab(s) (TYLENOL) 325-650 mg ORAL q 4 H PRN HYDROmorphone 0.5 mg injection (DILAUDID) 0.5 mg INTRAVENOUS q 2 H PRN cyclobenzaprine 10 mg tab(s) (FLEXERIL) 10 mg ORAL TID PRN ondansetron 4 mg tab(s) (ZOFRAN) 4 mg ORAL q 6 H PRN Or ondansetron (PF) 4 mg injection (ZOFRAN) 4 mg INTRAVENOUS q 6 H PRN diphenhydrAMINE 25 mg capsule (BENADRYL) 25 mg ORAL q 4 H PRN oxyCODONE-acetaminop hen 5-325 mg 1-2 tablet (PERCOCET) 1-2 tablet ORAL q [address] 30 mg cap(s) (CYMBALTA) 30 mg ORAL DAILY valsartan 80 mg tab(s) (DIOVAN) 80 mg ORAL DAILY Objective PHYSICAL EXAM: Physical Exam Performed: LUNGS: Decreased breath sounds but no wheezes, rales, rhonchi. CARDIAC: Normal S1 and S2; no rubs, murmurs, or gallops ABDOMEN: Abdomen soft, non-tender, BS normal, No masses or organomegaly BP 133/81 Pulse 99 Temp (Src) 98.9 (Oral) Resp 18 Ht 5' 5" (1.65m) Wt 162 lb 0.6 oz (73.5kg) SpO2 98% BMI 26.96 kg/(m2). DATA: Diagnostic tests reviewed for today's visit: No results found for this or any previous visit (from the past 24 hours). 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 * Plans: Medically stable. Home as per spine surgery. Patient was counseled and educated on smoking cessation and appropriate healing. Risks of tobacco abuse was explained at length including, but not limited to, lung cancer, heart attack, vascular disease. Patient encouraged to stop smoking in order to heal correctly. SIGNATURE: Keena Benítez MD PATIENT NAME: Leilani Spann DATE: 09/15/25 TIME: 7:[address] [facility] THERAPY NTon 09-15-2025 THERAPY NT HNO ID: [id number] Author: MAXIM MURRAY OTR/L Service: Occupational Therapy Author Type: Electrician Chief Type: Therapy (PT/OT/Speech/Resp) Filed: 09/15/2025 11:53 Note Text: Attestation signed by Maxim Murray OTR/L at 09/15/2025 11:53 AM I reviewed and agree with the assessment as documented above. SIGNATURE: MATT Wilson DATE: September 15, 2025 TIME: 11:53 AM Occupational Therapy Treatment Summary SERVICE DATE: 09/15/2025 SERVICE TIME: 805 to 829 ROOM: [place] [address] OT 6 Clicks Score: 24 Total Joint Replacement Discharge Readiness: Cleared from Occupational Therapy DISCHARGE RECOMMENDATIONS Home Recommended Discharge Disposition Comments: Anticipate d/c home with PRN assist from spouse for I/ADL completion Anticipated Discharge Needs: Physical Assist at Home Physical Assist at Home for: Cleaning, Laundry, Meals, Transportation, Shopping ASSESSMENT Response to Therapy Interventions: Good Participation in Activities, Improved Tolerance for Activity, Pain, Requires Additional Time to Complete Activities Fair response to session. Patient continues to make slow progression w/ overall ADL management and functional movement. At this time, patient's primary limitation is pain. From a functional standpoint, patient maintains spinal precautions well and is progressing appropriately. Patient reports spouse has been obtaining DME/AE. Cleared w/ OTR/L Maxim, no further OT services needed at this time. PRECAUTIONS Bed/Chair Alarm, Fall Risk, Spine CURRENT HOSPITAL COURSE Pt presents to [facility] for L3 and superior L4 laminectomy with L3-L4 discectomyrevision 09-13, ok to cont POC per maxim or/l Relevant Past Medical History: Bladder CA< HTN, HLD, pulmonary emphysema HOME LIVING Patient Lives With: Spouse Assistance Available: Part-Time Comments: spouse works photolettering machine operator but nearby house and able to come home if needed. Entry To Home: Stairs, With Rail Number Of Stairs Into Home: 3 Number Of Stairs To Bed/Bath: 19 Stairs to Bed/Bath with: Unilateral Rail Tub/Shower Type: Tub/shower Laundry: Basement - spouse to complete Equipment Owned: Rollator, Cane, Grab Bars- Shower, Gang Head Saw Operator, Hand Held Shower PRIOR FUNCTIONAL LEVEL Within Functional Limits Pt reports IND with ADL completion at baseline, shared IADLs with spouse. Baseline Cognition: Oriented to self, Oriented to place, Oriented to situation, Oriented to time SUBJECTIVE Pleasant and agreeable to tx. COGNITION Orientation Deficits: (A+O x 4) Responsiveness: Alert, Awake Follows Commands: 3-step Commands Cueing to Follow Commands: Minimum Psychosocial Factors Impacting Care: (impulsive) THERAPY DIAGNOSIS Decreased activities of daily living (ADL) TREATMENT INTERVENTIONS Self Halfway Management (62571) Timed Code Treatment (minutes): 24 Skilled Treatment Time (minutes): 24 TRAINING AND EDUCATION PROVIDED Activity Adaptation/Compensat ory Strategies, Energy Conservation, Functional Mobility Involving ADLs, Lower Extremity Bathing, Lower Extremity Dressing, Pain Management, Precautions/Restrict ions, Toileting THERAPEUTIC SKILLS USED Activity Dosing, Cues for Sequencing/Proper Technique for Activity, Cuing Tactile, Cuing Verbal, Management of Critical Lines, Tubes and/or Drains, Teach-Back for Education FUNCTIONAL STATUS Activities of Daily Living Assist Level Additional Information Feeding Set Up Grooming Set Up, Supervision, Additional Information Bathing Upper Body Set Up, Supervision, Additional Information Bathing Lower Body Supervision, Additional Information Simulated activity w/ patient ability to perform chari/posterior in standing w/ good adherence to spinal precautions. Patient w/ ability to perform modified tailored sit to reach BLE below the knee. Educated patient on long-handled loofah for home bathing assistance. Dressing Upper Body Set Up, Supervision, Additional Information Dressing Lower Body Supervision, Additional Information Practice don/doff of socks and pants w/ patient ability to perform modified tailored sit to thread. Requires increased time to complete, however, executes LBD w/ good adherence to spinal precautions. Toileting Supervision, Additional Information N/T clinical judgement based on progression w/ LBD/LBB activity. Mobility Assist Level Additional Information Bed Mobility Supine To Sit: Contact Guard Assistance, Additional Information N/T patient EOB Sit To Supine: Contact Guard Assistance Sit to Stand Supervision, Additional Information x2 attempts w/ fair technique and hand placement for stands. Stand to Sit Supervision, Additional Information Fair reach back and positioning observed. Bed to Chair Minimal Assistance, Additional Information (more content not included)... [facility] THERAPY NT HNO ID: [id number] Author: LISA FORTE PT DPT Service: Physical Therapy Author Type: Director Community Organization Type: Therapy (PT/OT/Speech/Resp) Filed: 09/15/2025 14:14 Note Text: Attestation signed by Lisa Forte PT, DPT at 09/15/2025 2:14 PM I reviewed and agree with the documentation corresponding to this therapy visit. SIGNATURE: Lisa Forte PT DPT DATE: September 15, 2025 TIME: 2:14 PM PHYSICAL THERAPY MISSED VISIT SERVICE DATE: 09/15/2025 SERVICE TIME: 833 ROOM: [place] [address] Patient not seen due to Declined to Participate (wants to rest and get pain meds). SIGNATURE: Alexander Delgado PTA PATIENT NAME: Leilani Spann DATE: September 15, 2025 TIME: 8:34AM [facility] CONSULT PROGon 09-14-2025 CONSULT PROG HNO ID: [id number] Author: KEENA BENÍTEZ MD Service: ? Author Type: Physician Type: Consult Progress Note Filed: 09/14/2025 17:21 Note Text: SERVICE CONSULT PROGRESS NOTE SERVICE DATE: 09/14/2025 SERVICE TIME: 5:20 PM Subjective INTERVAL HPI: Awake. Alert. Oriented. Repeat surgery noted. Denies chest pain or shortness of breath. Pain down his left leg is significantly improved. Positive flatus Current Facility-Administere d Medications Medication Dose Route Frequency dextrose 5% in NaCl 0.45% with 20 mEq/L KCl iv infusion 75 mL/hr INTRAVENOUS CONTINUOUS acetaminophen 325-650 mg tab(s) (TYLENOL) 325-650 mg ORAL q 4 H PRN HYDROmorphone 0.5 mg injection (DILAUDID) 0.5 mg INTRAVENOUS q 2 H PRN cyclobenzaprine 10 mg tab(s) (FLEXERIL) 10 mg ORAL TID PRN ondansetron 4 mg tab(s) (ZOFRAN) 4 mg ORAL q 6 H PRN Or ondansetron (PF) 4 mg injection (ZOFRAN) 4 mg INTRAVENOUS q 6 H PRN diphenhydrAMINE 25 mg capsule (BENADRYL) 25 mg ORAL q 4 H PRN oxyCODONE-acetaminop hen 5-325 mg 1-2 tablet (PERCOCET) 1-2 tablet ORAL q [address] 30 mg cap(s) (CYMBALTA) 30 mg ORAL DAILY valsartan 80 mg tab(s) (DIOVAN) 80 mg ORAL DAILY Objective PHYSICAL EXAM: Physical Exam Performed: LUNGS: Lungs clear to auscultation, Good diaphragmatic excursion CARDIAC: Regular rate and rhythm. No gallops. ABDOMEN: Abdomen soft, non-tender, BS normal, No masses or organomegaly BP 111/59 Pulse 73 Temp (Src) 98.2 (Oral) Resp 20 Ht 5' 5" (1.65m) Wt 162 lb 0.6 oz (73.5kg) SpO2 96% BMI 26.96 kg/(m2). DATA: Diagnostic tests reviewed for today's visit: No results found for this or any previous visit (from the past 24 hours). 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 * Plans: Overall, medically stable. Continue current care. Mobilization. SIGNATURE: Keena Benítez MD PATIENT NAME: Leilani Spann DATE: 09/14/25 TIME: 5:[address] [facility] THERAPY NTon 09-14-2025 THERAPY NT HNO ID: [id number] Author: SAL BRADFORD, PT Service: Physical Therapy Author Type: Physical Therapist Type: Therapy (PT/OT/Speech/Resp) Filed: 09/14/2025 15:34 Note Text: Physical Therapy Treatment Summary SERVICE DATE: 09/14/2025 SERVICE TIME: 1427 to 1450 ROOM: [id number] PT 6 Clicks Score: 18 DISCHARGE RECOMMENDATIONS Home Anticipated Discharge Needs: Physical Assist at Home Physical Assist at Home for: Cleaning, Laundry, Meals, Transportation, Shopping Recommended Discharge Equipment: No equipment needs anticipated ASSESSMENT Response to Therapy Interventions: Good Participation in Activities Pt tlerated PT session fairly. He was limited by L LE "cramping" pain which improved with positional changes and mobility. He would benefit from contginued tehrapy PRECAUTIONS Bed/Chair Alarm, Fall Risk, Spine CURRENT HOSPITAL COURSE Pt presents to [facility] for L3 and superior L4 laminectomy with L3-L4 discectomyrevision 09-13, ok to cont POC per maxim or/l Relevant Past Medical History: Bladder CA< HTN, HLD, pulmonary emphysema HOME LIVING Patient Lives With: Spouse Assistance Available: Part-Time Comments: spouse works photolettering machine operator but nearby house and able to come home if needed. Entry To Home: Stairs, With Rail Number Of Stairs Into Home: 3 Number Of Stairs To Bed/Bath: 19 Stairs to Bed/Bath with: Unilateral Rail Tub/Shower Type: Tub/shower Laundry: Basement - spouse to complete Equipment Owned: Rollator, Cane, Grab Bars- Shower, Gang Head Saw Operator, Hand Held Shower PRIOR FUNCTIONAL LEVEL Within Functional Limits Pt reports IND with ADL completion at baseline, shared IADLs with spouse. SUBJECTIVE I Have a cramp in my left leg" THERAPY DIAGNOSIS Reduced mobility-other, Decreased activities of daily living (ADL) TREATMENT INTERVENTIONS Therapeutic Activity (93034) Timed Code Treatment (minutes): 23 Skilled Treatment Time (minutes): 23 TRAINING AND EDUCATION PROVIDED Anatomy and Impact on Deficits, Assistive Device Use, Bed Mobility, Benefits of In-Hospital Mobility, Discharge Planning, Disease Specific Education, Expected Functional Level, Falls Prevention, Gait Pattern, Reduction of Deviations, Positioning, Precautions/Restrict ions, Role of Physical Therapy, Transfers THERAPEUTIC SKILLS USED Cues for Sequencing/Proper Technique for Activity, Cuing Verbal, Movement Facilitation FUNCTIONAL STATUS Bed Mobility Supine To Sit: Minimal Assistance, Additional Information log roll Sit to Supine: Minimal Assistance Scooting: Supervision Transfers Sit To Stand: Minimal Assistance Stand To Sit: Minimal Assistance Bed to Chair Gait Minimal Assistance Gait Device: Wheeled Walker General Deviations/Observati ons: Antalgic gait, Shuffling Gait, Step length decreased Gait Distance (feet): 120 Stairs GOALS Patient will demonstrate understanding of importance of mobility during hospital stay and resolve all functional needs identified. Transfer Supine to/from Sit with: Independent Transfer Sit to/from Stand with: Independent Ambulate with: Modified Independent Distance: 80 Device: Wheeled Walker Ambulate Up and Down Steps with: Modified Independent Number of Steps: 10 Device: Rail Rehab Potential: Good Progress Toward Goals: Progressing as expected ACUTE CARE TREATMENT PLAN PT Frequency: Once Daily Treatment Interventions: Education, Self Care / Home Management, Energy Conservation Training, Strengthening, Functional Mobility Training, Balance Training, Neuromuscular Re-education Plan for Next Visit: Bed Mobility, Fall Prevention, Gait Training, Pre-gait Activities, Sit to Stand Transfers, Stair Training, Standing Balance, Standing Tolerance SIGNATURE: Sal Bradford PT PATIENT NAME: Leilani Spann DATE: September 14, 2025 TIME: 3:34 PM [facility] THERAPY NT HNO ID: [id number] Author: MAXIM MURRAY OTR/L Service: Occupational Therapy Author Type: Electrician Chief Type: Therapy (PT/OT/Speech/Resp) Filed: 09/14/2025 11:55 Note Text: Attestation signed by Maxim Murray OTR/L at 09/14/2025 11:55 AM I reviewed and agree with the assessment as documented above. SIGNATURE: MATT Wilson DATE: September 14, 2025 TIME: 11:55 AM Occupational Therapy Treatment Summary SERVICE DATE: 09/14/2025 SERVICE TIME: 1032 to 1057 ROOM: [id number] OT 6 Clicks Score: 20 Total Joint Replacement Discharge Readiness: Pending Occupational Therapy Clearance DISCHARGE RECOMMENDATIONS Home Recommended Discharge Disposition Comments: Anticipate d/c home with PRN assist from spouse for I/ADL completion Anticipated Discharge Needs: Physical Assist at Home Physical Assist at Home for: Cleaning, Laundry, Meals, Transportation, Shopping ASSESSMENT Response to Therapy Interventions: Good Participation in Activities, Pain progressing slowly, req cues for safety and encouragement not to rely on lift chair to stand PRECAUTIONS Bed/Chair Alarm, Fall Risk, Spine CURRENT HOSPITAL COURSE Pt presents to [facility] for L3 and superior L4 laminectomy with L3-L4 discectomyrevision 09-13, ok to cont POC per maxim or/l Relevant Past Medical History: Bladder CA< HTN, HLD, pulmonary emphysema HOME LIVING Patient Lives With: Spouse Assistance Available: Part-Time Comments: spouse works photolettering machine operator but nearby house and able to come home if needed. Entry To Home: Stairs, With Rail Number Of Stairs Into Home: 3 Number Of Stairs To Bed/Bath: 19 Stairs to Bed/Bath with: Unilateral Rail Tub/Shower Type: Tub/shower Laundry: Basement - spouse to complete Equipment Owned: Rollator, Cane, Grab Bars- Shower, Gang Head Saw Operator, Hand Held Shower PRIOR FUNCTIONAL LEVEL Within Functional Limits Pt reports IND with ADL completion at baseline, shared IADLs with spouse. Baseline Cognition: Oriented to self, Oriented to place, Oriented to situation, Oriented to time SUBJECTIVE i like my lift chaor" patient struggleing to stand up w/o using lift chair mechanism COGNITION Orientation Deficits: (A+O x 4) Responsiveness: Alert, Awake Follows Commands: 2-step Commands, Cueing Needed Cueing to Follow Commands: Minimum Psychosocial Factors Impacting Care: (impulsive) THERAPY DIAGNOSIS Decreased activities of daily living (ADL) TREATMENT INTERVENTIONS Self Halfway Management (40353) Timed Code Treatment (minutes): 25 Skilled Treatment Time (minutes): 25 TRAINING AND EDUCATION PROVIDED Activity Adaptation/Compensat ory Strategies, Assistive Device Use, Bed Mobility, Benefits of In-Hospital Mobility, Discharge Planning, Energy Conservation, Functional Mobility Involving ADLs, Pain Management, Positioning, Precautions/Restrict ions, Role of Occupational Therapy, Safety/Judgment, Sitting Balance to Improve [place] with ADLs/Self-Care, Standing Balance to Improve [place] with ADLs/Self-Care, Transfer - Sit to Stand THERAPEUTIC SKILLS USED Activity Dosing, Cues for Sequencing/Proper Technique for Activity, Cuing Tactile, Cuing Verbal, Cuing Visual, Movement Facilitation, Repetitive Task Learning, Teach-Back for Education, Task Analysis Learning, Therapeutic Use of Self FUNCTIONAL STATUS Activities of Daily Living Assist Level Additional Information Feeding Set Up Grooming Set Up, Supervision, Additional Information standing at sink to wash hands, brush teerth at sink in bathroom Bathing Upper Body Set Up, Supervision, Additional Information full adls sitting in chair Bathing Lower Body Minimal Assistance, Additional Information chari care Dressing Upper Body Set Up, Supervision, Additional Information gown Dressing Lower Body Moderate Assistance Toileting Minimal Assistance, Additional Information (in bathroom educated on attending to buttocks, did not have a bm , slater in) Mobility Assist Level Additional Information Bed Mobility NT Supine To Sit: Contact Guard Assistance, Additional Information Sit To Supine: Contact Guard Assistance Sit to Stand Minimal Assistance, Additional Information steadying assist only elevated bed, educated to not rely on lift chair to stand him up, to utilize bles Stand to Sit Minimal Assistance, Additional Information cues for reaching ian Bed to Chair Minimal Assistance, Additional Information Bed To Chair Transfer Type: Stepping Bed To Chair Transfer Equipment: Wheeled Walker slow paced Toilet/Commode Minimal Assistance, Additional Information rail l Shower Functional Mobility Minimal Assistance, Additional Information Functional Mobility Device: Wheeled Walker 20' to and from the bathroom GOALS Patient will demonst (more content not included)... [facility] ANES POSTPROC EVALon 025 ANES POSTPROC EVAL HNO ID: [id number] Author: YOSI TYLER MD Service: Anesthesiology Author Type: Physician Type: Anesthesia Postprocedure Evaluation Filed: 09/13/2025 16:04 Note Text: POST ANESTHESIA EVALUATION NOTE : 1955 Procedure Summary Date: 09/13/25 Room / Location: OR / OR Anesthesia Start: 755 Anesthesia Stop: 1150 Procedures: Revision L3-L4 Decompression, L3-L5 Instrumented fusion, O-Arm POSTERIOR NON-SEGMENTAL INSTRUMENTATION FOLLOWING LUMBAR FUSION 1 LEVEL PDFI Diagnosis: Surgeons: Claus Botello MD Responsible Provider: Yosi Tyler MD Anesthesia Type: general ASA Status: 3 Anesthesia Type: general Airway Type: ETT Last Vitals Vitals Value Taken Time BP 133/78 09/13/25 15:49 Temp 37.4 ?C (99.4 ?F) 09/13/25 15:49 Pulse 92 09/13/25 15:49 Resp 18 09/13/25 15:49 SpO2 92 % 09/13/25 15:49 Post Anesthesia Patient Status Patient Evaluation: PACU. PACU/ICU Patient Condition: stable. Anticipated Disposition: inpatient floor planned admission. Neurological Status: aware and responsive. Pulmonary Status: breathing comfortably on room air Airway Control: returned to baseline unsupported. Cardiovascular Status: stable. Pain Management: clinically adequate - multimodal analgesia pain management approach Postoperative Hydration: acceptable. Intraoperative Events: no significant anesthesia events Recommendation: continue current plan of care and further care per PACU/ICU/floor team. Anesthesia Observations No Documentation SIGNATURE: Yosi Tyler MD PATIENT NAME: Leilani Spann DATE: September 13, 2025 TIME: 4:04 PM CSN: [id number] [facility] ANES PRE-OPon 09-13-2025 ANES PRE-OP HNO ID: [id number] Author: YOSI TYLER MD Service: Anesthesiology Author Type: Physician Type: Anesthesia Preprocedure Evaluation Filed: 09/13/2025 07:20 Note Text: ANESTHESIOLOGY DAY OF SURGERY NOTE : 1955 Procedure Information Date/Time: 09/13/25 0800 Procedures: Revision L3-L4 Decompression, L3-L5 Instrumented fusion, O-Arm POSTERIOR NON-SEGMENTAL INSTRUMENTATION FOLLOWING LUMBAR FUSION 1 LEVEL PDFI Location: OR / OR Surgeons: Claus Botello MD Estimated body mass index is 26.96 kg/m? as calculated from the following: Height as of this encounter: 165.1 cm (5' 5"). Weight as of this encounter: 73.5 kg (162 lb 0.6 oz). Most recent hematocrit and potassium results: Hematocrit 40.4 09/13/2025 Potassium 4.5 09/13/2025 Relevant Problems CARDIO (+) Embolus (HCC) (+) Hypertension (+) Portal vein thrombosis PULMONARY (+) Pulmonary emphysema (HCC) I - PHYSICAL EVALUATION AIRWAY Patient intubated: No. Mallampati: II. TM distance: >3 FB. Neck ROM: full ROM without neurological symptoms. Mouth opening: >3 FB. Short neck: no. Thick neck: no DENTAL Dental findings: teeth intact. Additional exam findings: no II - ANESTHESIA PLAN ASA Score: 3 Anesthetic Plan: general Airway type: ETT NPO Status: adequate Monitoring Plan Monitoring plan: Standard ASA. Post Procedure Analgesic Plan Postoperative analgesic plan: parenteral or oral opioids and multimodal analgesia. Informed Consent Anesthetic risks, benefits, alternatives, personnel and consent discussed: yes. Patient / Responsible Green Party agrees to proceed: yes Patient / Surrogate agrees to blood products: Yes DNR status not reviewed with patient and/or family prior to surgery. Significant changes in the patient condition since the History and Physical, not otherwise documented in primary service progress note: no. Potential Anesthesia issues that may suggest increased risk of complications or contraindication to planned procedure: none. Vitals Value Taken Time BP Pulse 68 09/13/25 07:18 Resp Temp SpO2 96 % 09/13/25 07:18 Vitals shown include unfiled device data. Facility-Administere d Medications as of 09/13/2025 Medication Dose Route Frequency [COMPLETED] dexAMETHasone sodium phosphate (PF) 8 mg injection (DECADRON) 8 mg INTRAVENOUS ONCE Followed by [COMPLETED] dexAMETHasone sodium phosphate 4 mg injection (DECADRON) 4 mg INTRAVENOUS ONCE Followed by [COMPLETED] dexAMETHasone sodium phosphate 2 mg injection (DECADRON) 2 mg INTRAVENOUS ONCE [COMPLETED] ceFAZolin iv piggyback 2 g in D5W (iso-osmotic) 100 mL (ANCEF) 2 g INTRAVENOUS ONCE [COMPLETED] povidone-iodine sticks 4 each (BETADINE) 4 each TOPICAL Pre-Op Once [COMPLETED] lidocaine (PF) 10 mg/mL (1 %) 2 mg injection (XYLOCAINE) 0.2 mL INTRADERMAL PRN [Transfer Hold] dextrose 5% in NaCl 0.45% with 20 mEq/L KCl iv infusion 75 mL/hr INTRAVENOUS CONTINUOUS [COMPLETED] ceFAZolin iv piggyback 1 g in D5W (iso-osmotic) 50 mL (ANCEF) 1 g INTRAVENOUS q 8 HR [Transfer Hold] acetaminophen 325-650 mg tab(s) (TYLENOL) 325-650 mg ORAL q 4 H PRN [Transfer Hold] HYDROmorphone 0.5 mg injection (DILAUDID) 0.5 mg INTRAVENOUS q 2 H PRN [Transfer Hold] cyclobenzaprine 10 mg tab(s) (FLEXERIL) 10 mg ORAL TID PRN [Transfer Hold] ondansetron 4 mg tab(s) (ZOFRAN) 4 mg ORAL q 6 H PRN Or [Transfer Hold] ondansetron (PF) 4 mg injection (ZOFRAN) 4 mg INTRAVENOUS q 6 H PRN [Transfer Hold] diphenhydrAMINE 25 mg capsule (BENADRYL) 25 mg ORAL q 4 H PRN [Transfer Hold] oxyCODONE-acetaminop hen 5-325 mg 1-2 tablet (PERCOCET) 1-2 tablet ORAL q 4 H PRN [Transfer Hold] DULoxetine DR 30 mg cap(s) (CYMBALTA) 30 mg ORAL DAILY [Transfer Hold] valsartan 80 mg tab(s) (DIOVAN) 80 mg ORAL DAILY Outpatient Medications as of 09/13/[address] (CYMBALTA) 30 mg capsule Take 30 mg by mouth once daily. Just started 08/2025 for pain control with back traMADol (ULTRAM) 50 mg tablet Take 50 mg by mouth every 6 hours as needed for pain. acetaminophen (TYLENOL EXTRA STRENGTH) 500 mg tablet Take 1,000 mg by mouth every 8 hours as needed for pain. valsartan (DIOVAN) 80 mg tablet Take 80 mg by mouth once daily. naproxen sodium (ALEVE) 220 mg tablet Take 220 mg by mouth two times a day with meals. Last dose 09/01/25 for OR 09/09/25 I have interviewed and examined the patient. I have reviewed the medical record and/or the pre-anesthesia evaluation, pertinent labs, and test results. This contains updated information obtained within 48 hours of Surgery/Procedure. SIGNATURE: Yosi Tyler MD PATIENT NAME: Leilani Spann DATE: September 13, 2025 TIME: 7:20 AM CSN: [id number] Normal [facility] Basic metabolic 2000 panelon 09-13-2025 Anion gap [Moles/Vol] 9 mmol/L Normal 5-16 [facility] Comment on above: Order Comment: Speci men Type: BLOOD SPECIMENOrdering Facility: [facility] Address: [address] [place] [address] Performed By: #### 2 4321-2 ####[facility] LABORATORYCLIA [id number] [place] [id number] [place] Calcium [Mass/Vol] 9.2 mg/dL Normal 8.5-10.5 [facility] Comment on above: Order Comment: Speci men Type: BLOOD SPECIMENOrdering Facility: [facility] Address: [address] [place] [address] Performed By: #### 2 4321-2 ####[facility] LABORATORYCLIA [id number] [place] [id number] [place] Chloride [Moles/Vol] 99 mmol/L Normal 98-107 [facility] Comment on above: Order Comment: Speci men Type: BLOOD SPECIMENOrdering Facility: [facility] Address: [address] [place] [address] Performed By: #### 2 4321-2 ####[facility] LABORATORYCLIA [id number] [place] [id number] [place] CO2 [Moles/Vol] 27 mmol/L Normal 21-32 [facility] Comment on above: Order Comment: Speci men Type: BLOOD SPECIMENOrdering Facility: [facility] Address: [address] [place] [address] Performed By: #### 2 4321-2 ####[facility] LABORATORYCLIA [id number] [place] [id number] [place] Creatinine [Mass/Vol] 1.19 mg/dL Normal 0.50-1.40 [facility] Comment on above: Order Comment: Speci men Type: BLOOD SPECIMENOrdering Facility: [facility] Address: [address] [place] [address] Result Comment: Annette ents receiving either N-Acetylcysteine (NAC) or Metamizole prior to venipuncture, may have falsely depressed results. Performed By: #### 2 4321-2 ####[facility] LABORATORYCLIA [id number] [place] [address] [place] eGFRcr SerPlBld CKD-EPI 2020 67 mL/min/1.73m??? Normal >=60 [facility] Comment on above: Order Comment: Scotti men Type: BLOOD SPECIMENOrdering Facility: [facility] Address: [address] [place] [address] Result Comment: Hermila mated Glomerular Filtration Rate (eGFR) is calculated using the 2020 CKD-EPI creatinine equation. This equation utilizes serum creatinine, sex, and age as parameters. The creatinine assay has traceable calibration to isotope dilution-mass spectrometry. Refer to KDIGO guidelines for clinical interpretation. In patients with unstable renal function, e.g. those with acute kidney injury, the eGFR may not accurately reflect actual GFR. Performed By: #### 2 4321-2 ####[facility] LABORATORYCLIA [id number] [place] [id number] [place] Glucose [Mass/Vol] 104 mg/dL High 70-100 [facility] Comment on above: Order Comment: Speci men Type: BLOOD SPECIMENOrdering Facility: [facility] Address: [address] [place], [place] [address] Result Comment: The [place] Diabetes Association (ADA) provides guidance for cutoff values for fasting glucose and random glucose. The ADA defines fasting as no caloric intake for at least 8 hours. Fasting plasma glucose results between 100 to 125 mg/dL indicate increased risk for diabetes (prediabetes). Fasting plasma glucose results greater than or equal to 126 mg/dL meet the criteria for diagnosis of diabetes. In the absence of unequivocal hyperglycemia, results should be confirmed by repeat testing. In a patient with classic symptoms of hyperglycemia or hyperglycemic crisis, random plasma glucose results greater than or equal to 200 mg/dL meet the criteria for diagnosis of diabetes. Reference: Standards of Medical Care in Diabetes 2016, [place] [employer] Association. Diabetes Care. 2016.39(Suppl 1). Results may be falsely elevated after the administration of Sulfapyridine. Results may be falsely depressed after the administration of Sulfasalazine. Performed By: #### 2 4321-2 ####[facility] LABORATORYCLIA [id number] [place] [address] [place] Potassium [Moles/Vol] 4.5 mmol/L Normal 3.5-5.1 [facility] Comment on above: Order Comment: Speci men Type: BLOOD SPECIMENOrdering Facility: [facility] Address: [address] [place] [address] Performed By: #### 2 4321-2 ####[facility] LABORATORYCLIA [id number] [place] [id number] [place] Sodium [Moles/Vol] 135 mmol/L Low 136-145 [facility] Comment on above: Order Comment: Speci men Type: BLOOD SPECIMENOrdering Facility: [facility] Address: [address] [place] [address] Performed By: #### 2 4321-2 ####[facility] LABORATORYCLIA [id number] [place] [address] [place] Urea nitrogen [Mass/Vol] 22 mg/dL Normal - [facility] Comment on above: Order Comment: Speci men Type: BLOOD SPECIMENOrdering Facility: [facility] Address: [address] [place] [address] Performed By: #### 2 4321-2 ####[facility] LABORATORYCLIA [id number] [place] [address] [place] CBC W Auto Differential pane l (Bld)on 09-13-2025 Basophils (Bld) [#/Vol] 0.08 10*3/uL Normal <0.11 [facility] Comment on above: Order Comment: Speci men Type: BLOOD SPECIMENOrdering Facility: [facility] Address: [address] [place] [address] Performed By: #### 5 7021-8 ####[facility] LABORATORYCLIA [id number] [place] [address] [place] Basophils/100 WBC (Bld) 1.0 % Normal [facility] Comment on above: Order Comment: Speci men Type: BLOOD SPECIMENOrdering Facility: [facility] Address: [address] [place] [address] Performed By: #### 5 7021-8 ####[facility] LABORATORYCLIA [id number] [place] [address] [place] Differential cell count method Nom (Bld) Auto Normal [facility] Comment on above: Order Comment: Speci men Type: BLOOD SPECIMENOrdering Facility: [facility] Address: [address] [place] [address] Performed By: #### 5 7021-8 ####[facility] [place] [facility]ATORYCLIA [id number] [place] [id number] [place] Eosinophils (Bld) [#/Vol] 0.24 10*3/uL Normal <0.46 [facility] Comment on above: Order Comment: Speci men Type: BLOOD SPECIMENOrdering Facility: [facility] Address: [address] [place] [address] Performed By: #### 5 7021-8 ####[facility] [place] LABORATORYCLIA [id number] [place] [id number] [place] Eosinophils/100 WBC (Bld) 2.9 % Normal [facility] Comment on above: Order Comment: Speci men Type: BLOOD SPECIMENOrdering Facility: [facility] Address: [address] [place] [address] Performed By: #### 5 7021-8 ####[facility] [place] LABORATORYCLIA [id number] [address] [place] Erythrocyte distribution width (RBC) [Ratio] 14.2 % Normal 11.5-15.0 [facility] Comment on above: Order Comment: Speci men Type: BLOOD SPECIMENOrdering Facility: [facility] Address: [address] [place] [address] Performed By: #### 5 7021-8 ####[facility] [place] LABORATORYCLIA [id number] [address] [place] Hematocrit (Bld) [Volume fraction] 40.4 % Normal 39.0-51.0 [facility] Comment on above: Order Comment: Speci men Type: BLOOD SPECIMENOrdering Facility: [facility] Address: [address] [place] [address] Performed By: #### 5 7021-8 ####[facility] [place] LABORATORYCLIA [id number] [place] [address] [place] Hemoglobin (Bld) [Mass/Vol] 13.1 g/dL Normal 13.0-17.0 [facility] Comment on above: Order Comment: Speci men Type: BLOOD SPECIMENOrdering Facility: [facility] Address: [address] [place] [address] Performed By: #### 5 7021-8 ####[facility] [place] [facility]ORATORYCLIA [id number] [place] [address] [place] Immature granulocytes (Bld) [#/Vol] 0.13 10*3/uL High <0.10 [facility] Comment on above: Order Comment: Speci men Type: BLOOD SPECIMENOrdering Facility: [facility] Address: [address] [place] [address] Performed By: #### 5 7021-8 ####[facility] [place] LABORATORYCLIA [id number] [place] [address] [place] Immature granulocytes/100 WBC (Bld) 1.6 % Normal [facility] Comment on above: Order Comment: Speci men Type: BLOOD SPECIMENOrdering Facility: [facility] Address: [address] [place] [address] Performed By: #### 5 7021-8 ####[facility] [place] LABORATORYCLIA [id number] [place] [address] [place] Lymphocytes (Bld) [#/Vol] 1.42 10*3/uL Normal 1.00-4.00 [facility] Comment on above: Order Comment: Speci men Type: BLOOD SPECIMENOrdering Facility: [facility] Address: [address] [place] [address] Performed By: #### 5 7021-8 ####[facility] [place] LABORATORYCLIA [id number] [address] [place] Lymphocytes/100 WBC (Bld) 17.1 % Normal [facility] Comment on above: Order Comment: Speci men Type: BLOOD SPECIMENOrdering Facility: [facility] Address: [address] [place] [address] Performed By: #### 5 7021-8 ####[facility] [place] LABORATORYCLIA [id number] [place] [address] [place] MCH (RBC) [Entitic mass] 28.4 pg Normal 26.0-34.0 [facility] Comment on above: Order Comment: Speci men Type: BLOOD SPECIMENOrdering Facility: [facility] Address: [address] [place] [address] Performed By: #### 5 7021-8 ####[facility] [place] [facility]ORATORYCLIA [id number] [place] [address] [place] MCHC (RBC) [Mass/Vol] 32.4 g/dL Normal 30.5-36.0 [facility] Comment on above: Order Comment: Speci men Type: BLOOD SPECIMENOrdering Facility: [facility] Address: [address] [place] [address] Performed By: #### 5 7021-8 ####[facility] [place] LABORATORYCLIA [id number] [place] [address] [place] MCV (RBC) [Entitic vol] 87.4 fL Normal 80.0-100.0 [facility] Comment on above: Order Comment: Speci men Type: BLOOD SPECIMENOrdering Facility: [facility] Address: [address] [place] [address] Performed By: #### 5 7021-8 ####[facility] [place] [facility]ORATORYCLIA [id number] [place] [address] [place] Monocytes (Bld) [#/Vol] 0.77 10*3/uL Normal <0.87 [facility] Comment on above: Order Comment: Speci men Type: BLOOD SPECIMENOrdering Facility: [facility] Address: [address] [place] [address] Performed By: #### 5 7021-8 ####[facility] [place] LABORATORYCLIA [id number] [place] [address] [place] Monocytes/100 WBC (Bld) 9.3 % Normal [facility] Comment on above: Order Comment: Speci men Type: BLOOD SPECIMENOrdering Facility: [facility] Address: [address] [place] [address] Performed By: #### 5 7021-8 ####[facility] [place] [facility]ORATORYCLIA [id number] [place] [address] [place] Neutrophils (Bld) [#/Vol] 5.65 10*3/uL Normal 1.45-7.50 [facility] Comment on above: Order Comment: Speci men Type: BLOOD SPECIMENOrdering Facility: [facility] Address: [address] [place] [address] Performed By: #### 5 7021-8 ####[facility] [place] [facility]ORATORYCLIA [id number] [place] [id number] [place] Neutrophils/100 WBC (Bld) 68.1 % Normal [facility] Comment on above: Order Comment: Speci men Type: BLOOD SPECIMENOrdering Facility: [facility] Address: [address] [place] [address] Performed By: #### 5 7021-8 ####[facility] [place] LABORATORYCLIA [id number] [place] [address] [place] Nucleated RBC (Bld) [#/Vol] 10*3/uL Normal <0.01 [facility] Comment on above: Order Comment: Speci men Type: BLOOD SPECIMENOrdering Facility: [facility] Address: [address] [place] [address] Performed By: #### 5 7021-8 ####[facility] [place] [facility]ORATORYCLIA [id number] [place] [address] [place] Nucleated RBC/100 WBC (Bld) [Ratio] 0.0 /[address] [facility] Comment on above: Order Comment: Speci men Type: BLOOD SPECIMENOrdering Facility: [facility] Address: [address] [place] [address] Performed By: #### 5 7021-8 ####[facility] [place] [facility]ORATORYCLIA [id number] [place] [address] [place] Platelet mean volume (Bld) [Entitic vol] 9.0 fL Normal 9.0-12.7 [facility] Comment on above: Order Comment: Speci men Type: BLOOD SPECIMENOrdering Facility: [facility] Address: [address] [place] [address] Performed By: #### 5 7021-8 ####[facility] [place] [facility]ORATORYCLIA [id number] [place] [id number] [place] Platelets (Bld) [#/Vol] 370 10*3/uL Normal 150-400 [facility] Comment on above: Order Comment: Speci men Type: BLOOD SPECIMENOrdering Facility: [facility] Address: [address] [place] [address] Performed By: #### 5 7021-8 ####[facility] [place] [facility]ORATORYCLIA [id number] [place] [address] [facility] [place] RBC (Bld) [#/Vol] 4.62 10*6/uL Normal 4.20-6.00 [facility] Comment on above: Order Comment: Speci men Type: BLOOD SPECIMENOrdering Facility: [facility] Address: [address] [place] [address] Performed By: #### 5 7021-8 ####[facility] [place] [facility]ORATORYCLIA [id number] [place] [id number] [facility] [place] WBC (Bld) [#/Vol] 8.29 10*3/uL Normal 3.70-11.00 [facility] Comment on above: Order Comment: Speci men Type: BLOOD SPECIMENOrdering Facility: [facility] Address: [address] [place], [place] [address] Performed By: #### 5 7021-8 ####[facility] [place] LABORATORYCLIA [id number] [place] [id number] [facility] OPERATIVE NOon 09-13-2025 OPERATIVE NO HNO ID: [id number] Author: CLAUS BOTELLO MD Service: Orthopaedic Surgery Author Type: Physician Type: Operative Report Filed: 09/13/2025 11:08 Note Text: Orthopedic spine operative note: Preoperative diagnosis: 1. Left lower extremity radiculitis 2. Lumbar stenosis Postoperative diagnosis: 1. Left lower extremity radiculitis 2. Lumbar stenosis Surgeon: Claus Botello MD Hot Cell Technician: Jacqueline Bateman NP Anesthesia: General Procedure: 1. Revision L3 and L4 laminectomy 2. L3-4 facetectomy bilaterally 3. Autograft morselized from same incision 4. O-arm navigation 5. L3, L4, L5 instrumented posterolateral fusion Indications: 4 days ago, the patient had an L3 laminectomy with superior L4 laminectomy. He had a large herniated disc on the left with foraminal protrusions. Postoperatively he had improvement of his L4 radicular pain but still had severe left L3 radicular pain. In discussion with the patient, the decision was to come back to the operating room for more aggressive decompression with facetectomy and instrumented fusion. EBL: 150 cc Fluids: Ancef, 1500 cc crystalloid, 175 cc of urine output Implants: 1. Med[employer] Solera screws 2. Infuse bone morphogenic protein 3. 30 cc crushed cancellous allograft The patient was appropriately identified in the presurgical area and the lumbar spine was marked as the operative site. The patient was then taken the operating theater. After an adequate plane of anesthesia was obtained in the hospital bed, the patient was transferred to the [place] frame table in the standard fashion. All bony prominences and pressure points were well-padded and protected. Once adequately secured to the table, the patient was prepped and draped in a sterile orthopedic fashion. I began the procedure by placement of an 18-gauge spinal needle and use of lateral fluoroscopic imaging to identify my surgical level. With this identification the skin was marked and a longitudinal incision was made from the L2-L5 spinous process. I used sharp dissection through the skin followed by Bovie electrocautery dissection through the subcutaneous tissue down to the thoracolumbar fascia. I then did a subperiosteal dissection off the spinous process and onto the lamina to expose the interlaminar windows being cautious around his previous laminectomy site. I then took an x-ray to identify the 2-3 facet. With this identification, I then bluntly dissected over the capsule maintaining capsule integrity and exposing the transverse process of L3. I then dissected caudally exposing the pars, denuding the facet capsules and exposing the transverse processes of L4 and L5. With this exposure completed bilaterally, I thoroughly irrigated the wound with pulsatile lavage and turned my attention to the decompression. I placed a Emiliano into the interspinous ligament and took a lateral x-ray to confirm decompressing the L4 spinous process and lamina. I started at the L4-5 interlaminar window and worked my way cephalad. I used a combination of double-action rongeurs and Kerrison rongeurs to decompress the central canal and work my way into the lateral recess. Previous laminectomy sites were identified. I next did an inferior facetectomy of L3 and L4 to decompress the lateral recess and the exiting and traversing nerve roots. I then skeletonized the corresponding superior articular facet with a Kerrison rongeur. I followed the L3 and L4 nerve root out laterally decompressing overlying superior articular facet and redundant capsule. Some disc material root was removed at the superior portion of the L3-4 disc into the foramen. With this decompression completed bilaterally, the wound was again copiously irrigated with pulsatile lavage and I turned my attention to the fusion. A stereotactic array was applied to the spinous process to assist with O-arm navigation and placement of the pedicle screws. I used a high-speed bur to decorticate the transverse processes L3, L4, L5. I placed a combination of bone morphogenic protein and autograft into the posterior lateral gutters bilaterally. I then began placement of the screws with a standard technique of a bur followed by sharp awl, ball-tipped feeler, tap, and placement of the screws. This was done at L3, L4, L5 bilaterally. With the screws in satisfactory position by palpation and imaging, I then tested them with intraoperative monitoring. The left L4 nerve root tested at approximately 2 milliamps. All screws tested at greater than 20 mA indicating safe intraosseous placement. I placed rods and set screws and secured them with a counter torque mechanism in the standard fashion. I now turned my attention to closure. I placed vancomycin powder both superficial and deep to the fascia. I placed a subfascial drain and brought it out through a separate stab incision and secured it with a drain stitch. I closed the fascia with a 1 sutu (more content not included)... Normal [facility] XR VERIFY LEVEL [id number] 09-13-2025 XR VERIFY LEVEL L-SPINE-NB * * *Final Report* * * DATE OF EXAM: Sep 13 2025 9:15AM [id number] - XR VERIFY LEVEL L-SPINE-NB / PROCEDURE REASON: Other * * * * Physician Interpretation * * * * TECHNIQUE: Single lateral image of the lumbar spine COUNTING REFERENCE: Lumbosacral junction. L4/5 is presumed to be the level of the iliac crests. There are 5 lumbar type vertebral bodies. COMPARISON: 10/01/2025 MRI RESULT: A single lateral image is obtained intraoperatively for surgical planning. Localizing instruments are seen posteriorly at the L3 vertebral level, L4 vertebral level and L5 vertebral level. Image annotated with vertebral body levels and confirmed with the responsible surgeon at the time of interpretation. IMPRESSION: OPERATIVE ASSESSMENT COMMUNICATION: Communicated with Dr. Botello on 09/23/2025 at 0918 via verbal communication. Television Cameraman: SOTO Transcribe Date/Time: Sep 13 2025 9:17A Dictated by : MASSIMO JOSE MD This examination was interpreted and the report reviewed and electronically signed by: MASSIMO JOSE MD on Sep 13 2025 9:19AM EST [id number] CN [facility] THERAPY NTon 09-12-2025 THERAPY NT HNO ID: [id number] Author: DIVINA JOYCE PT Service: Physical Therapy Author Type: Director Community Organization Type: Therapy (PT/OT/Speech/Resp) Filed: 09/12/2025 12:05 Note Text: Attestation signed by Divina Joyce PT at 09/12/2025 12:05 PM I reviewed and agree with the assessment as documented above. SIGNATURE: Divina Joyce PT DATE: September 12, 2025 TIME: 12:05 PM PHYSICAL THERAPY MISSED VISIT SERVICE DATE: 09/12/2025 SERVICE TIME: 1005 ROOM: [id number] Patient not seen due to Clinical Appropriateness (Pt politely declined therapy d/t 07/15 pain. Plans for revision sx tentatively tomorrow a.m. Will need a reassessment.). SIGNATURE: Viri Kerr PTA PATIENT NAME: Leilani Spann DATE: September 12, 2025 TIME: 10:[address] [facility] CONSULT PROGon 09-11-2025 CONSULT PROG HNO ID: [id number] Author: KEENA BENÍTEZ MD Service: ? Author Type: Physician Type: Consult Progress Note Filed: 09/11/2025 09:38 Note Text: SERVICE CONSULT PROGRESS NOTE SERVICE DATE: 09/11/2025 SERVICE TIME: 9:37 AM Subjective INTERVAL HPI: Awake. Alert. Above-noted and agree. Pain is now 8 out of 10 and is significantly worsened since yesterday. Current Facility-Administere d Medications Medication Dose Route Frequency dextrose 5% in NaCl 0.45% with 20 mEq/L KCl iv infusion 75 mL/hr INTRAVENOUS CONTINUOUS acetaminophen 325-650 mg tab(s) (TYLENOL) 325-650 mg ORAL q 4 H PRN HYDROmorphone 0.5 mg injection (DILAUDID) 0.5 mg INTRAVENOUS q 2 H PRN cyclobenzaprine 10 mg tab(s) (FLEXERIL) 10 mg ORAL TID PRN ondansetron 4 mg tab(s) (ZOFRAN) 4 mg ORAL q 6 H PRN Or ondansetron (PF) 4 mg injection (ZOFRAN) 4 mg INTRAVENOUS q 6 H PRN diphenhydrAMINE 25 mg capsule (BENADRYL) 25 mg ORAL q 4 H PRN oxyCODONE-acetaminop hen 5-325 mg 1-2 tablet (PERCOCET) 1-2 tablet ORAL q [address] 30 mg cap(s) (CYMBALTA) 30 mg ORAL DAILY valsartan 80 mg tab(s) (DIOVAN) 80 mg ORAL DAILY Objective PHYSICAL EXAM: Physical Exam Performed: LUNGS: Clear. No wheezes, rales, rhonchi. CARDIAC: Normal S1 and S2; no rubs, murmurs, or gallops ABDOMEN: Abdomen soft, non-tender, BS normal, No masses or organomegaly BP 127/79 Pulse 71 Temp (Src) 97.8 (Oral) Resp 16 Ht 5' 5" (1.65m) Wt 162 lb 0.6 oz (73.5kg) SpO2 90% BMI 26.96 kg/(m2). DATA: Diagnostic tests reviewed for today's visit: No results found for this or any previous visit (from the past 24 hours). 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 * Plans: As per spine surgery. Has as needed Dilaudid for the MRI. SIGNATURE: Keena Benítez MD PATIENT NAME: Leilani Spann DATE: 09/11/25 TIME: 9:[address] [facility] MRI LUMBAR SPINE WO IVCONon 09-11-2025 MRI LUMBAR SPINE WO IVCON * * *Final Report* * * DATE OF EXAM: Sep 11 2025 5:23PM [facility] 0303 - MRI LUMBAR SPINE WO IVCON / PROCEDURE REASON: Lumbar radiculopathy, prior surgery, new symptoms * * * * Physician Interpretation * * * * EXAMINATION: MRI LUMBAR SPINE WO IVCON CLINICAL HISTORY: Lumbar radiculopathy, prior surgery, new symptoms TECHNIQUE: Routine lumbosacral spine MR protocol without gadolinium. MQ: [id number] COMPARISON: Lumbar MRI outside hospital 08/19/2025 RESULT: Counting reference: Lumbosacral junction. For the purposes of this report, L4-5 is considered the level of the iliac crest and assume there are 5 lumbar-type vertebrae. Anatomic variant: None. Localizer images: There is mild/moderate left hydronephrosis with dilation of the renal calyx and ureter. Alignment: Alignment is anatomic. Bone marrow signal/fracture: Interval postoperative findings from L3 laminectomy compared to prior exam. Partial resection of previously seen left paracentral disc extrusion compared to the prior MRI but with persistent effacement of the left subarticular recesses contacting the traversing left L4 nerve. No evidence of pathologic marrow infiltration. No evidence of prior fracture. Degenerative disc space narrowing and disc desiccation throughout the lumbar levels with fluid signal in the L4-L5 and L5-S1 disc spaces, similar to prior MRI 08/19/2025. Mild type I and type II signal degenerative changes. Schmorl's node along the inferior L5 endplate as well as scattered small Schmorl's nodes in the lower thoracic and upper lumbar levels. Conus: The conus is within normal limits of signal intensity and morphology. The conus terminates at the L1-L2 level. Normal configuration of the cauda equina nerve roots. Paraspinal soft tissues: There is disruption of the dorsal paraspinal soft tissue planes at the L3 laminectomy with edema and fluid signal along the laminectomy defect. Joint effusions bilaterally at L2-L5. There is an indeterminate and mildly enlarged left retroperitoneal lymph node at the L5 level measuring up to 1.2 cm in short axis (series 5, image 35). Lower thoracic spine: Visualized lower thoracic canal and foramina are patent. L1-L2: Canal and foramina are patent. L2-L3: Disc bulging with facet and ligamentous hypertrophy. Mild to moderate bilateral foraminal stenoses from facet hypertrophy. No significant canal stenosis. L3-L4: Interval postoperative findings of dorsal laminectomy and resection of the left paracentral disc extrusion. Slight interval improvement in effacement of the left subarticular zone but with residual mild effacement and contact on the traversing left L4 nerve, which may be related to postoperative edema. Improved narrowing of the canal status post laminectomy. There is persistent moderate to severe right and moderate left foraminal stenosis from disc height loss and facet hypertrophy. L4-L5: Disc bulging and facet hypertrophy without significant canal stenosis. There is moderate left and severe right foraminal stenosis. L5-S1: Disc height loss and bulging with facet and ligamentous hypertrophy result in moderate to severe left and mild right foraminal stenoses. No significant canal stenosis. Sacrum and iliac wings: Partially visualized heterogeneous abnormal marrow signal involving the left iliac bone with T2 hyperintensity and T1 hypointensity. This is incompletely evaluated and assessed and should be further evaluated with either CT or MRI pelvic imaging. Findings were likely present on the prior outside MRI. IMPRESSION: Interval postoperative findings of L3 laminectomy and resection of previously seen left paracentral disc extrusion at L3-L4 with slightly improved effacement of the left subarticular zone and improved canal stenosis at L3-L4. Multilevel lumbar spondylosis with canal and foraminal stenoses as detailed. No other high-grade canal stenosis. Moderate to severe foraminal stenoses most pronounced at the L3-S1 levels. Findings appear similar to prior MRI. Heterogeneous abnormal marrow signal involving the left iliac bone, partially visualized. This should be further evaluated with either CT or MRI pelvic imaging. Indeterminate slightly enlarged left retroperitoneal lymph node at the L5 level. Mild/moderate left hydroureteronephrosi s. Anatomic Lumbar Variant: None. L4-5 is considered the level of the iliac crest and assume there are 5 lumbar-type vertebrae. Since developmental variants may exist elsewhere in the spine, correlation with thoracic spine imaging would be helpful for accurate labeling of vertebral levels in the thoracic spine as clinically directed. Television Cameraman: SOTO Transcribe Date/Time: Sep 11 2025 5:26P Dictated by : CODY BOLAÑOS MD This examination was interpreted and the report reviewed and electronically signed by: CODY BOLAÑOS MD on Sep 11 2025 5:45PM EST [id number] CN [facility] THERAPY NTon 09-11-2025 THERAPY NT HNO ID: [id number] Author: ALEXANDER DELGADO PTA Service: Physical Therapy Author Type: Director Community Organization Type: Therapy (PT/OT/Speech/Resp) Filed: 09/11/2025 15:08 Note Text: Attestation signed by Kevin Chao PT at 09/11/2025 4:07 PM I reviewed and agree with the documentation corresponding to this therapy visit. SIGNATURE: Kevin Chao PT DATE: September 11, 2025 TIME: 4:07 PM PHYSICAL THERAPY MISSED VISIT SERVICE DATE: 09/11/2025 SERVICE TIME: 1458 ROOM: [place] [address] Patient not seen due to Clinical Appropriateness (Awaiting MRI due to increased pain post sx. Will await results.). SIGNATURE: Alexander Delgado PTA PATIENT NAME: Leilani Spann DATE: September 11, 2025 TIME: 2:51PM [facility] THERAPY NT HNO ID: [id number] Author: LISA FORTE PT, DPT Service: Physical Therapy Author Type: Director Community Organization Type: Therapy (PT/OT/Speech/Resp) Filed: 09/11/2025 08:13 Note Text: Attestation signed by Lisa Forte PT DPT at 09/11/2025 8:13 AM I reviewed and agree with the documentation corresponding to this therapy visit. SIGNATURE: Lisa Forte PT DPKatelin DATE: September 11, 2025 TIME: 8:13 AM PHYSICAL THERAPY MISSED VISIT SERVICE DATE: 09/11/2025 SERVICE TIME: 0808 ROOM: [place] [address] Patient not seen due to Clinical Appropriateness (Seated at EOB refusing therapy due to uncontrolled pain). SIGNATURE: Alexander Delgado PTA PATIENT NAME: Leilani Spann DATE: September 11, 2025 TIME: 8:08 AM [facility] THERAPY NT HNO ID: [id number] Author: [place] COTA/L Service: Occupational Therapy Author Type: Electrician Chief Type: Therapy (PT/OT/Speech/Resp) Filed: 09/11/2025 08:07 Note Text: Attestation signed by Lauren Barron OT/L at 09/11/2025 8:34 AM I reviewed and agree with the documentation corresponding to this therapy visit. SIGNATURE: ADRIAN Chapman DATE: September 11, 2025 TIME: 8:34 AM OCCUPATIONAL THERAPY MISSED VISIT SERVICE DATE: 09/11/2025 SERVICE TIME: 0800 ROOM: [place] [address] Patient not seen due to Declined to Participate (Uncontrolled pain). SIGNATURE: NETO Bui PATIENT NAME: Leilani Spann DATE: September 11, 2025 TIME: 8:07 AM [facility] CONSULTon 09-10-2025 CONSULT HNO ID: [id number] Author: KEENA BENÍTEZ MD Service: ? Author Type: Physician Type: Consults Filed: 09/10/2025 06:54 Note Text: INITIAL CONSULT NOTE SERVICE DATE: 09/10/25 SERVICE TIME: 6:52 AM REASON FOR CONSULT: postoperative medical evaluation and management as the patient's primary care physician does not come to this institution REQUESTING PHYSICIAN: Amarjit Botello MD PRIMARY CARE PHYSICIAN: Celina Delgado NP, CUSTOM CAR BUILDER Subjective Leilani pSann is a 70 year old male who presents for postoperative care following lumbar surgery. Seen postoperative day 1. Lives with family. Vapes. 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 FUNCTIONAL STATUS: Independent PAST MEDICAL HISTORY Diagnosis Date Back pain Dr. Botello Bladder cancer (HCC) 2021 In remission as of 09/04/25 call: had surgery and chemo Contact dermatitis and eczema 09/04/25: No current issues. Embolus ([facility]) 2021 Abdominal blood clots. Admitted and on eliquis for short time. did not know much about this due to not being able to visit patient in hospital due to visiting restrictions. Hypertension 08/2025 Just started meds in 08/2025, Only had BP checked once since starting states it was better. PCP not sure if high BP is the patient's pain or true hypertension PAST SURGICAL HISTORY Procedure Laterality Date ARTHROSCOPY KNEE DIAGNOSTIC W/WO SYNOVIAL BX SPX Right 1991 BLADDER SURGERY HX 2021 For bladder cancer HERNIA REPAIR HX x2 VASECTOMY Family History Problem Relation Age of Onset None Other SOCIAL HISTORY[1] Prescriptions Prior to Admission[2] Current Facility-Administere d Medications Medication Dose Route Frequency dextrose 5% in NaCl 0.45% with 20 mEq/L KCl iv infusion 75 mL/hr INTRAVENOUS CONTINUOUS acetaminophen 325-650 mg tab(s) (TYLENOL) 325-650 mg ORAL q 4 H PRN HYDROmorphone 0.5 mg injection (DILAUDID) 0.5 mg INTRAVENOUS q 2 H PRN cyclobenzaprine 10 mg tab(s) (FLEXERIL) 10 mg ORAL TID PRN ondansetron 4 mg tab(s) (ZOFRAN) 4 mg ORAL q 6 H PRN Or ondansetron (PF) 4 mg injection (ZOFRAN) 4 mg INTRAVENOUS q 6 H PRN diphenhydrAMINE 25 mg capsule (BENADRYL) 25 mg ORAL q 4 H PRN oxyCODONE-acetaminop hen 5-325 mg 1-2 tablet (PERCOCET) 1-2 tablet ORAL q [address] 30 mg cap(s) (CYMBALTA) 30 mg ORAL DAILY valsartan 80 mg tab(s) (DIOVAN) 80 mg ORAL DAILY dexAMETHasone sodium phosphate 4 mg injection (DECADRON) 4 mg INTRAVENOUS ONCE Followed by dexAMETHasone sodium phosphate 2 mg injection (DECADRON) 2 mg INTRAVENOUS ONCE Allergies As of Date: 09/02/2025 (No Known Allergies) Fully Assessed 07/11/2011 COMPLETE REVIEW OF SYSTEMS: GENERAL: No weight loss, malaise or fevers HEENT: Negative for frequent or significant headaches, No changes in hearing or vision, no nose bleeds or other nasal problems NECK: Negative for lumps, goiter, pain and significant neck swelling RESPIRATORY: See HPI CARDIOVASCULAR: Negative for chest pain, leg swelling, hypertension, CHF or palpitations GI: No nausea, vomiting, or diarrhea : No history of dysuria, frequency or incontinence MUSCULOSKELETAL: back pain and muscle pain SKIN: Negative for lesions, rash, and itching PSYCH: Negative for sleep disturbance, mood disorder and recent psychosocial stressors HEMATOLOGY/LYMPHOLOG Y: Negative for prolonged bleeding, bruising easily or swollen nodes ENDOCRINE: Negative for cold or heat intolerance, polyuria, polydipsia and goiter NEURO: No history of headaches, syncope, paralysis, seizures or tremors All others are negative other than what is dictated above in the system review. Objective PHYSICAL EXAM: Physical Exam Performed: GENERAL: Alert, no distress, cooperative SKIN: Skin color, texture, turgor normal. No rashes or lesions. EYES: PERRLA, EOMI NECK: No jugulovenous distention, No carotid bruits, Carotid pulse normal contour, Supple LUNGS: Decreased breath sounds but no wheezes, rales, rhonchi. CARDIAC: Normal S1 and S2; no rubs, murmurs, or gallops ABDOMEN: Abdomen soft, non-tender, BS normal, No masses or organomegaly EXTREMITIES: Extremities normal, no deformities, edema, clubbing or skin discoloration. Good capillary refill., No ulcers NEURO: Grossly normal cognition, motor function, and cranial nerves III-XII PULSES: 2+ radial, 2+ carotid The remainder of the physical exam is noncontributory. BP 137/84 Pulse 82 Temp (Src) 97.4 (Oral) Resp 18 Ht 5' 5" (1.65m) Wt 162 lb 0.6 oz (73.5kg) SpO2 96% BMI 26.96 kg/(m2). Radiology XR VERIFY LEVEL L-SPINE NB Final Result IMPRESSION: Intraoperative fluoroscopy of the lumbar spine for localization. Television Cameraman: [email or web address] Transcribe Date/Time: Sep 09 2025 12:26P Dictated by : WILLIAM JORDAN MD This examination was interpreted and the report reviewed and electronically signed by: WILLIAM JORDAN MD on Sep 09 2025 12:27PM EST DATA: Diagnostic tests reviewed for today's visit: Recent Labs 09/07/25 (more content not included)... Normal [facility] THERAPY NTon 09-10-2025 THERAPY NT HNO ID: [id number] Author: MAXIM MURRAY OTR/L Service: Occupational Therapy Author Type: Occupational Therapist Type: Therapy (PT/OT/Speech/Resp) Filed: 09/10/2025 13:36 Note Text: Occupational Therapy Evaluation Summary SERVICE DATE: 09/10/2025 SERVICE TIME: 1304 to 1329 ROOM: [id number] OT 6 Clicks Score: 19 Total Joint Replacement Discharge Readiness: Pending Occupational Therapy Clearance DISCHARGE RECOMMENDATIONS Home Recommended Discharge Disposition Comments: Anticipate d/c home with PRN assist from spouse for I/ADL completion Anticipated Discharge Needs: Physical Assist at Home Physical Assist at Home for: Cleaning, Laundry, Meals, Transportation, Shopping ASSESSMENT Response to Therapy Interventions: Good Participation in Activities, Pain Pt with fair tolerance to OT evaluation. Pt able to recall 3/3 spinal precautions without VCs, req min VCs for follow through during task completion. Pt presents with generalized weakness, decreased activity tolerance, and pain which is limiting his ability to function at baseline level. PRECAUTIONS Bed/Chair Alarm, Fall Risk, Spine CURRENT HOSPITAL COURSE Pt presents to [facility] for L3 and superior L4 laminectomy with L3-L4 discectomy Relevant Past Medical History: Bladder CA< HTN, HLD, pulmonary emphysema HOME LIVING Patient Lives With: Spouse Assistance Available: Part-Time Comments: spouse works photolettering machine operator but nearby house and able to come home if needed. Entry To Home: Stairs, With Rail Number Of Stairs Into Home: 3 Number Of Stairs To Bed/Bath: 19 Stairs to Bed/Bath with: Unilateral Rail Tub/Shower Type: Tub/shower Laundry: Basement - spouse to complete Equipment Owned: Rollator, Cane, Grab Bars- Shower, Gang Head Saw Operator, Hand Held Shower PRIOR FUNCTIONAL LEVEL Within Functional Limits Pt reports IND with ADL completion at baseline, shared IADLs with spouse. Baseline Cognition: Oriented to self, Oriented to place, Oriented to situation, Oriented to time SUBJECTIVE Pt agreeable to OT evaluation with verbal encouragement COGNITION Orientation Deficits: (A+O x 4) Responsiveness: Alert, Awake Follows Commands: 2-step Commands, Cueing Needed Cueing to Follow Commands: Minimum THERAPY DIAGNOSIS Reduced mobility-other, Decreased activities of daily living (ADL) TREATMENT INTERVENTIONS Evaluation, Self Halfway Management (64388) Timed Code Treatment (minutes): 10 Skilled Treatment Time (minutes): 25 TRAINING AND EDUCATION PROVIDED Activity Adaptation/Compensat ory Strategies, Assistive Device Use, Bed Mobility, Benefits of In-Hospital Mobility, Discharge Planning, Energy Conservation, Functional Mobility Involving ADLs, Pain Management, Positioning, Precautions/Restrict ions, Role of Occupational Therapy, Safety/Judgment, Sitting Balance to Improve [place] with ADLs/Self-Care, Standing Balance to Improve [place] with ADLs/Self-Care, Transfer - Sit to Stand THERAPEUTIC SKILLS USED Activity Dosing, Cues for Sequencing/Proper Technique for Activity, Cuing Tactile, Cuing Verbal, Cuing Visual, Movement Facilitation, Repetitive Task Learning, Teach-Back for Education, Task Analysis Learning, Therapeutic Use of Self FUNCTIONAL STATUS Activities of Daily Living Assist Level Additional Information Feeding Set Up Grooming Set Up Bathing Upper Body Supervision Bathing Lower Body Moderate Assistance Dressing Upper Body Supervision Dressing Lower Body Moderate Assistance Toileting Minimal Assistance Mobility Assist Level Additional Information Bed Mobility Supine To Sit: Contact Guard Assistance, Additional Information Pt CGA for supine to/from sit with VCs for sequencing log roll technique and for coordinated breathing Sit To Supine: Contact Guard Assistance Sit to Stand Contact Guard Assistance, Additional Information From EOB with VCs for hand placement Stand to Sit Contact Guard Assistance Bed to Chair Toilet/Commode Shower Functional Mobility Contact Guard Assistance, Additional Information Functional Mobility Device: Wheeled Walker Pt CGA for functional mobility in room and hallway with FWW, min VCs for postural correction GOALS Patient will demonstrate progress to optimize self-care activities, cognitive and/or coping to maximize function upon discharge. Grooming with: Modified Independent Upper Body Dressing with: Modified Independent Lower Body Dressing with: Supervision Toilet Hygiene with: Supervision Chair Transfer with: Supervision Toilet Transfer with: Supervision Rehab Potential: Good Good Rehab Potential Due To: Current objective clinical presentation ACUTE CARE TREATMENT PLAN OT Frequency: 5 Times Per Week Treatment Interventions: Education, Self Care/Home Management, Energy Conservation Training, Functional Mobility Training, Balance Training Plan for Next Visit: Bathing Training, Bed Mobility, Chair/Commode Transfer Training, Dressing (more content not included)... [facility] THERAPY NT HNO ID: [id number] Author: MAXIM MURRAY OTR/Thang Service: Occupational Therapy Author Type: Occupational Therapist Type: Therapy (PT/OT/Speech/Resp) Filed: 09/10/2025 11:13 Note Text: OCCUPATIONAL THERAPY MISSED VISIT SERVICE DATE: 09/10/2025 SERVICE TIME: 1110 ROOM: [id number] Patient not seen due to Declined to Participate. Orders received, chart reviewed. Pt declines OT eval at this time d/t uncontrolled pain. Pt agreeable to re-attempt at 1300. SIGNATURE: SHERRON Wilson/Thang PATIENT NAME: Leilani Spann DATE: September 10, 2025 TIME: 11:[address] [facility] THERAPY NT HNO ID: [id number] Author: HUMBERTO HAND, PT Service: Physical Therapy Author Type: Physical Therapist Type: Therapy (PT/OT/Speech/Resp) Filed: 09/10/2025 09:26 Note Text: Physical Therapy Evaluation Summary SERVICE DATE: 09/10/2025 SERVICE TIME: 0839 to 09 ROOM: [place] [address] PT 6 Clicks Score: 19 DISCHARGE RECOMMENDATIONS Home Anticipated Discharge Needs: Physical Assist at Home Physical Assist at Home for: Cleaning, Laundry, Meals, Transportation, Shopping Recommended Discharge Equipment: No equipment needs anticipated ASSESSMENT Response to Therapy Interventions: Good Participation in Activities, Low Activity Tolerance, Pain Pt tolerated PT eval fairly, limited by high pain level in low back which is radiating down LLE during functional mobility. Anticipate once pain is under control pt return home upon dc. PRECAUTIONS Spine, Fall Risk, Bed/Chair Alarm CURRENT HOSPITAL COURSE S/p L3 and superior L4 laminectomy, L3-4 discectomy on 09/[address] Botello. Relevant Past Medical History: HTN, bladder cancer, back pain HOME LIVING Patient Lives With: Spouse Assistance Available: Part-Time, Other: See Comment Comments: spouse works photolettering machine operator but nearby house and able to come home if needed. Entry To Home: Stairs, With Rail Number Of Stairs Into Home: 3 Number Of Stairs To Bed/Bath: 19 Stairs to Bed/Bath with: Unilateral Rail Tub/Shower Type: tub shower combo with grab bars Laundry: per Equipment Owned: Rollator, Cane PRIOR FUNCTIONAL LEVEL Within Functional Limits Pt reports independece with ADL's and functional mobility without use of AD. Recently due to pain would use rollator. completes iADL's. Pt works and drives. Reports one recent fall. SUBJECTIVE Pt awake, agreeable to PT eval. THERAPY DIAGNOSIS Reduced mobility-other, Decreased activities of daily living (ADL) TREATMENT INTERVENTIONS Evaluation, Therapeutic Activity (07024) Timed Code Treatment (minutes): 14 Skilled Treatment Time (minutes): 29 TRAINING AND EDUCATION PROVIDED Anatomy and Impact on Deficits, Assistive Device Use, Bed Mobility, Benefits of In-Hospital Mobility, Discharge Planning, Equipment, Exercise Program, Expected Functional Level, Falls Prevention, Gait Pattern, Reduction of Deviations, Handout Issued, Role of Physical Therapy, Pre-gait Activities, Precautions/Restrict ions, Standing Balance, Transfers THERAPEUTIC SKILLS USED Cuing Verbal, Cuing Tactile, Cues for Sequencing/Proper Technique for Activity, Activity Dosing, Physical Assist, Movement Facilitation FUNCTIONAL STATUS Bed Mobility Supine To Sit: Verbal Cues Only, Additional Information log roll technique Sit to Supine: Minimal Assistance, Additional Information for bLE management, log roll. Scooting: Supervision Transfers Sit To Stand: Minimal Assistance, Additional Information v/c's for proper hand placement. Increased pain when standing. Stand To Sit: Minimal Assistance Bed to Chair Gait Minimal Assistance, Additional Information Steady on feet, no LOB, limited by increased pain level. Gait Device: Wheeled Walker General Deviations/Observati ons: Non-functional gait speed, Difficulty changing direction/turning Gait Distance (feet): 50 Stairs Exercise Exercise: seated ther ex 2x10: LAQ, ankle pumps, glute sets, transversus activation. GOALS Patient will demonstrate understanding of importance of mobility during hospital stay and resolve all functional needs identified. Transfer Supine to/from Sit with: Independent Transfer Sit to/from Stand with: Independent Ambulate with: Modified Independent Distance: 80 Device: Wheeled Walker Ambulate Up and Down Steps with: Modified Independent Number of Steps: 10 Device: Rail Rehab Potential: Good Good Rehab Potential Due To: Good motivation ACUTE CARE TREATMENT PLAN PT Frequency: Once Daily Treatment Interventions: Education, Self Care / Home Management, Energy Conservation Training, Strengthening, Functional Mobility Training, Balance Training, Neuromuscular Re-education Plan for Next Visit: Bed Mobility, Fall Prevention, Gait Training, Pre-gait Activities, Sit to Stand Transfers, Stair Training, Standing Balance, Standing Tolerance SIGNATURE: Humberto Hand, PT PATIENT NAME: Leilani Spann DATE: September 10, 2025 TIME: 9:26 AM [facility] ANES POSTPROC EVALon -05-2 025 ANES POSTPROC EVAL HNO ID: [id number] Author: EFE BANUELOS MD Service: Anesthesiology Author Type: Anesthesiologist Type: Anesthesia Postprocedure Evaluation Filed: 09/09/2025 15:23 Note Text: POST ANESTHESIA EVALUATION NOTE : 1955 Procedure Summary Date: 09/09/25 Room / Location: OR / MR OR Anesthesia Start: 1143 Anesthesia Stop: 1326 Procedure: DECOMPRESSION LAMINECTOMY LUMBAR POSTERIOR LEVEL 1 (Back) Diagnosis: Contusion of lower back and pelvis, subsequent encounter (Contusion of lower back and pelvis, subsequent encounter [S30.0XXD]) Surgeons: Claus Botello MD Responsible Provider: Satya Queen DO Anesthesia Type: general ASA Status: 3 Anesthesia Type: general Airway Type: ETT Last Vitals Vitals Value Taken Time BP 153/71 09/09/25 15:15 Temp 36.6 ?C (97.8 ?F) 09/09/25 13:25 Pulse 84 09/09/25 15:21 Resp 16 09/09/25 14:45 SpO2 97 % 09/09/25 15:21 Vitals shown include unfiled device data. Post Anesthesia Patient Status Patient Evaluation: PACU. PACU/ICU Patient Condition: stable. Anticipated Disposition: inpatient floor planned admission. Neurological Status: aware and responsive. Pulmonary Status: breathing comfortably on supplemental oxygen Airway Control: returned to baseline unsupported. Cardiovascular Status: stable. Pain Management: clinically adequate Postoperative Hydration: acceptable. Intraoperative Events: no significant anesthesia events Post Operative Nausea/Vomiting Status: no significant post operative nausea or vomiting Recommendation: continue current plan of care. Anesthesia Observations No Documentation SIGNATURE: Efe Banuelos MD PATIENT NAME: Leilani Spann DATE: September 09, 2025 TIME: 3:22 PM CSN: [id number] [facility] ANES PRE-OPon 09-09-2025 ANES PRE-OP HNO ID: [id number] Author: SATYA QUEEN DO Service: Anesthesiology Author Type: Anesthesiologist Type: Anesthesia Preprocedure Evaluation Filed: 09/09/2025 10:02 Note Text: ANESTHESIOLOGY DAY OF SURGERY NOTE : 1955 Procedure Information Date/Time: 09/09/25 1145 Procedure: DECOMPRESSION LAMINECTOMY LUMBAR POSTERIOR LEVEL 1 (Back) Location: OR / OR Surgeons: Claus Botello MD Estimated body mass index is 26.96 kg/m? as calculated from the following: Height as of 09/07/25: 165.1 cm (5' 5"). Weight as of this encounter: 73.5 kg (162 lb 0.6 oz). Most recent hematocrit and potassium results: Potassium 4.1 09/07/2025 Relevant Problems CARDIO (+) Embolus (HCC) (+) Hypertension (+) Portal vein thrombosis I - PHYSICAL EVALUATION AIRWAY Patient intubated: No. Tracheostomy tube not present Mallampati: I. TM distance: >3 FB. Neck ROM: full ROM without neurological symptoms. Mouth opening: >3 FB. Short neck: no. Thick neck: no DENTAL Dental findings: missing tooth/teeth. Additional exam findings: yes. CARDIOVASCULAR Normal cardiovascular observations. PULMONARY Normal pulmonary observations. II - ANESTHESIA PLAN ASA Score: 3 Anesthetic Plan: general Airway type: ETT The patient is a current smoker. NPO Status: adequate Monitoring Plan Monitoring plan: standard ASA. Post Procedure Analgesic Plan Postoperative analgesic plan: parenteral or oral opioids and multimodal analgesia. Informed Consent Anesthetic risks, benefits, alternatives, personnel and consent discussed: yes. Patient / Responsible Green Party agrees to proceed: yes Patient / Surrogate agrees to blood products: Yes Significant changes in the patient condition since the History and Physical, not otherwise documented in primary service progress note: no. Potential Anesthesia issues that may suggest increased risk of complications or contraindication to planned procedure: none. Vitals Value Taken Time BP 133/93 09/09/25 09:11 Pulse 77 09/09/25 09:10 Resp 20 09/09/25 09:07 Temp 36.5 ?C (97.7 ?F) 09/09/25 09:07 SpO2 97 % 09/09/25 09:10 Vitals shown include unfiled device data. Facility-Administere d Medications as of 09/09/2025 Medication Dose Route Frequency ceFAZolin iv piggyback 2 g in D5W (iso-osmotic) 100 mL (ANCEF) 2 g INTRAVENOUS ONCE [COMPLETED] povidone-iodine sticks 4 each (BETADINE) 4 each TOPICAL Pre-Op Once [COMPLETED] lidocaine (PF) 10 mg/mL (1 %) 2 mg injection (XYLOCAINE) 0.2 mL INTRADERMAL PRN NaCl 0.9% iv infusion 30 mL/hr INTRAVENOUS CONTINUOUS NaCl 0.9% iv flush bag 20 mL INTRAVENOUS PRN Outpatient Medications as of 09/09/[address] (CYMBALTA) 30 mg capsule Take 30 mg by mouth once daily. Just started 08/2025 for pain control with back traMADol (ULTRAM) 50 mg tablet Take 50 mg by mouth every 6 hours as needed for pain. acetaminophen (TYLENOL EXTRA STRENGTH) 500 mg tablet Take 1,000 mg by mouth every 8 hours as needed for pain. valsartan (DIOVAN) 80 mg tablet Take 80 mg by mouth once daily. naproxen sodium (ALEVE) 220 mg tablet Take 220 mg by mouth two times a day with meals. Last dose 09/01/25 for OR 09/09/25 I have interviewed and examined the patient. I have reviewed the medical record and/or the pre-anesthesia evaluation, pertinent labs, and test results. This contains updated information obtained within 48 hours of Surgery/Procedure. SIGNATURE: Satya Queen DO PATIENT NAME: Leilani Spann DATE: September 09, 2025 TIME: 10:01 AM CSN: [id number] [facility] HISTORY PHYSICALon HISTORY PHYSICAL HNO ID: [id number] Author: CLAUS BOTELLO MD Service: Orthopaedic Surgery Author Type: Physician Type: H&P Filed: 09/09/2025 10:33 Note Text: Written HANDP and chart reviewed and no changes. [facility] OPERATIVE NOon 09-09-2025 OPERATIVE NO HNO ID: [id number] Author: CLAUS BOTELLO MD Service: Orthopaedic Surgery Author Type: Physician Type: Operative Report Filed: 09/09/2025 13:07 Note Text: Pre-op diagnosis: 1. L3-4 herniated disc 2. Lumbar stenosis 3. Left lower extremity radiculitis Postop diagnosis: 1. L3-4 herniated disc 2. Lumbar stenosis 3. Left lower extremity radiculitis Procedure: 1. L3 and superior L4 laminectomy 2. L3-4 discectomy Surgeon: Claus botello MD Hot Cell Technician: Yudy Tracy SA Anesthesia: General EBL: 20 cc Fluids: Ancef, 4 and cc crystalloid, 150 cc urine output The patient was appropriately identified in the presurgical area and the lumbar spine was marked as the operative site. The patient was then taken to the operating theater. After an adequate plane of anesthesia was obtained in the hospital bed, the patient was transferred to a Sergo frame table in the standard fashion. All bony prominences and pressure points were well-padded and protected. Once adequately secured to the table, the patient was prepped and draped in a sterile orthopedic fashion. I began the procedure by placement of an 18-gauge spinal needle and use of lateral fluoroscopic imaging to identify my surgical level. With this identification the skin was marked and a longitudinal incision was made over the L3-4 spinous process. I used sharp dissection through the skin followed by Bovie electrocautery dissection through the subcutaneous tissue down to the thoracolumbar fascia. I then did a subperiosteal dissection off the spinous process of L3 to expose the interlaminar window bilaterally. I took an x-ray to confirm localization to the L3-4 level. I used a combination of curettes and Kerrison rongeurs to decompress the interlaminar window and release the ligamentum flavum bilaterally. I identified nerve root on the left side and swept this medially and protected it with a nerve root retractor. I identified disc material. With the neural structures protected, I then took an 11 blade on a long handle and did an annulotomy and removed disc material with micropituitary rongeurs and a ball-tipped probe. I placed the probe into the disc base and took an x-ray for final confirmation of decompressing at the L3-4 level and probed into the exiting L4 nerve root. With this confirmation, I irrigated the wound. I obtained meticulous hemostasis. I had anesthesia perform a Valsalva maneuver. There was no evidence of a CSF leak. I now turned my attention to closure. I placed vancomycin powder both superficial and deep to the fascia. I closed the fascia with a 1 suture in a running manner followed by O in the deep subcutaneous tissue, 2-0 superficially, and a 4-0 subcuticular Monocryl stitch for final skin closure. A sterile dressing was applied. The patient was transferred back to their hospital bed awakened from anesthesia and onto the recovery room. Normal St. [facility] XR VERIFY LEVEL L-[id number]-[id number] 09-09-2025 XR VERIFY LEVEL L-SPINE-NB * * *Final Report* * * DATE OF EXAM: Sep 09 2025 12:24PM RHX [id number] - XR VERIFY LEVEL L-SPINE-NB / PROCEDURE REASON: Other * * * * Physician Interpretation * * * * INTRAOPERATIVE FLUOROSCOPY FOR SPINE LOCALIZATION: Clinical Statement: Spinal localization. REPORT: Frontal laparoscopic images were acquired over the lumbar spine in the OR for localization. Comparison is made with a previous lumbar spine radiographic exam performed 07/24/2025. The provided fluoroscopic images show a metallic instrument projecting posteriorly at the L3-L4 disc space. The level was confirmed with Dr. Botello over the telephone at 12:26 PM on 09/09/2025. IMPRESSION: Intraoperative fluoroscopy of the lumbar spine for localization. Television Cameraman: PSCB Transcribe Date/Time: Sep 09 2025 12:26P Dictated by : WILLIAM JORDAN MD This examination was interpreted and the report reviewed and electronically signed by: WILLIAM JORDAN MD on Sep 09 2025 12:27PM EST [id number] CN Normal [facility] Basic metabolic 2000 panelon 09-07-2025 Anion gap [Moles/Vol] 10 mmol/L Normal 5-16 [facility] Comment on above: Order Comment: Speci men Type: BLOOD SPECIMEN [facility] Facility: [facility] Address: [address] [place] [address] Performed By: #### 2 4321-2 #### [facility] CLIA [id number] [address] [place] [address] [place] Calcium [Mass/Vol] 9.3 mg/dL Normal 8.5-10.5 [facility] Comment on above: Order Comment: Speci men Type: BLOOD SPECIMEN [facility] Facility: [facility] Address: [address] [place] [address] Performed By: #### 2 4321-2 #### [facility] CLIA [id number] [address] [place] [address] [place] Chloride [Moles/Vol] 102 mmol/L Normal 98-107 [facility] Comment on above: Order Comment: Speci men Type: BLOOD SPECIMEN [facility] Facility: [facility] Address: [address] [place] [address] Performed By: #### 2 4321-2 #### [facility] CLIA [id number] [address] [place] [address] [place] CO2 [Moles/Vol] 24 mmol/L Normal 21-32 [facility] Comment on above: Order Comment: Speci men Type: BLOOD SPECIMEN [facility] Facility: [facility] Address: [address] [place] [address] Performed By: #### 2 4321-2 #### [facility] CLIA [id number] [address] [place] [address] [place] Creatinine [Mass/Vol] 1.23 mg/dL Normal 0.50-1.40 [facility] Comment on above: Order Comment: Speci men Type: BLOOD SPECIMEN [facility] Facility: [facility] Address: [address] [place] [address] Result Comment: Annette ents receiving either N-Acetylcysteine (NAC) or Metamizole prior to venipuncture, may have falsely depressed results. Performed By: #### 2 4321-2 #### [facility] CLIA [id number] [address] [place] [address] [place] eGFRcr SerPlBld CKD-EPI 2020 64 mL/min/1.73m??? Normal >=60 [facility] Comment on above: Order Comment: Speci men Type: BLOOD SPECIMEN [facility] Facility: [facility] Address: [address] [place] [address] Result Comment: Hermila mated Glomerular Filtration Rate (eGFR) is calculated using the 2020 CKD-EPI creatinine equation. This equation utilizes serum creatinine, sex, and age as parameters. The creatinine assay has traceable calibration to isotope dilution-mass spectrometry. Refer to KDIGO guidelines for clinical interpretation. In patients with unstable renal function, e.g. those with acute kidney injury, the eGFR may not accurately reflect actual GFR. Performed By: #### 2 4321-2 #### [facility] CLIA [id number] [address] [place], [place] [address] [place] Glucose [Mass/Vol] 107 mg/dL High 70-100 [facility] Comment on above: Order Comment: Jaylene singh Type: BLOOD SPECIMEN [facility] Facility: [facility] Address: [address] [place] [address] Result Comment: The [place] Diabetes Association (ADA) provides guidance for cutoff values for fasting glucose and random glucose. The ADA defines fasting as no caloric intake for at least 8 hours. Fasting plasma glucose results between 100 to 125 mg/dL indicate increased risk for diabetes (prediabetes). Fasting plasma glucose results greater than or equal to 126 mg/dL meet the criteria for diagnosis of diabetes. In the absence of unequivocal hyperglycemia, results should be confirmed by repeat testing. In a patient with classic symptoms of hyperglycemia or hyperglycemic crisis, random plasma glucose results greater than or equal to 200 mg/dL meet the criteria for diagnosis of diabetes. Reference: Standards of Medical Care in Diabetes 2016, [place] Diabetes Association. Diabetes Care. 2016.39(Suppl 1). Results may be falsely elevated after the administration of Sulfapyridine. Results may be falsely depressed after the administration of Sulfasalazine. Performed By: #### 2 4321-2 #### [facility] CLIA [id number] [address] [place] [address] [place] Potassium [Moles/Vol] 4.1 mmol/L Normal 3.5-5.1 [facility] Comment on above: Order Comment: Jaylene singh Type: BLOOD SPECIMEN [facility] Facility: [facility] Address: [address] [place] [address] Performed By: #### 2 4321-2 #### [facility] CLIA [id number] [address] [place] [address] [place] Sodium [Moles/Vol] 136 mmol/L Normal 136-145 [facility] Comment on above: Order Comment: Jaylene singh Type: BLOOD SPECIMEN [facility] Facility: [facility] Address: [address] [place] [address] Performed By: #### 2 4321-2 #### [facility] CLIA [id number] [address] [place] [address] [place] Urea nitrogen [Mass/Vol] 14 mg/dL Normal 7-26 [facility] Comment on above: Order Comment: Speci men Type: BLOOD SPECIMEN [facility] Facility: [facility] Address: [address] [place], [place] [address] Performed By: #### 2 4321-2 #### [facility] CLIA [id number] [address] [place] [address] [place] ECG COMPLETEon 09-07-2025 ECG COMPLETE Ventricular Rate : 65 BPM Atrial Rate : 65 BPM P-R Interval : 152 ms QRS Duration : 102 ms Q-T Interval : 408 ms QTC Calculation(Bazett) : 424 ms Calculated R [place] : -24 degrees Calculated T [place] : 50 degrees Normal sinus rhythm Normal ECG No previous ECGs available Confirmed by ABIOLA ATWOOD MD ([id number]) on 09/07/2025 4:50:05 PM NAME : LEILANI SPANN PID : [id number] : 1955 Gender : Male Race : ORD : [id number] Procedure Date : Sep 07 2025 16:25:10 Edit Date : Sep 07 2025 16:50:08 Diagnosis: Normal sinus rhythm Normal ECG No previous ECGs available Confirmed by ABIOLA ATWOOD MD ([id number]) on 09/07/2025 4:50:05 PM Test Reason : HCS Location : 2 : PEAT Overread By : ABIOLA ATWOOD MD Edited By : ABIOLA ATWOOD MD Referred By : DONNELL, Acquired by : DANNY [facility] HbA1c (Bld)on 09-07-2025 Average glucose Estimated from glycated hemoglobin (Bld) [Mass/Vol] 137 mg/dL [facility] Comment on above: Order Comment: Jaylene singh Type: BLOOD SPECIMEN [facility] Facility: [facility] Address: [address] [place] [address] Result Comment: eAG: (Estimated average glucose) is a calculated value from HgbA1c and is inbound customer service representative of the average blood glucose level in the last 2-3 month period. Performed By: #### 5 5454-3 #### [facility] CLIA [id number] [address] [place] [address] [place] HbA1c (Bld) [Mass fraction] 6.4 % High 4.3-5.6 [facility] Comment on above: Order Comment: Jaylene singh Type: BLOOD SPECIMEN [facility] Facility: [facility] Address: [address] [place] [address] Result Comment: [place] Diabetes Association guidelines indicate that patients with HgbA1c in the range 5.7-6.4% are at increased risk for development of diabetes, and intervention by lifestyle modification may be beneficial. HgbA1c greater or equal to 6.5% is considered diagnostic of diabetes. Performed By: #### 5 5454-3 #### [facility] CLIA [id number] [address] [place] [address] [place] CNCOon 09-04-2025 CNCO Letter Text [facility] .Auto Diffon 09-03-2025 Basophil, Absolute 0.1 10 3/mcL Normal 0.0-0.3 [facility] Comment on above: Performed By: #### P RO, APTT, CBC, BMP, GFR, ANEU, ADIFF #### [address] [address] Basophils/100 WBC (Bld) 0.7 % Normal 0.0-2.5 [facility] Comment on above: Performed By: #### P RO, APTT, CBC, BMP, GFR, ANEU, ADIFF #### [address] [address] Eosinophil, Absolute 0.1 10 3/mcL Normal 0.0-0.7 [facility] Comment on above: Performed By: #### P RO, APTT, CBC, BMP, GFR, ANEU, ADIFF #### [address] [address] Eosinophils/100 WBC (Bld) 1.0 % Normal 0.0-6.0 [facility] Comment on above: Performed By: #### P RO, APTT, CBC, BMP, GFR, ANEU, ADIFF #### [address] [address] Lymphocyte, Absolute 1.0 10 3/mcL Normal 0.9-4.3 [facility] Comment on above: Performed By: #### P RO, APTT, CBC, BMP, GFR, ANEU, ADIFF #### [address] [address] Lymphocytes/100 WBC (Bld) 11.2 % Low 20.0-40.0 [facility] Comment on above: Performed By: #### P RO, APTT, CBC, BMP, GFR, ANEU, ADIFF #### [address] [address] Monocyte, Absolute 0.9 10 3/mcL Normal 0.1-1.4 [facility] Comment on above: Performed By: #### P RO, APTT, CBC, BMP, GFR, ANEU, ADIFF #### [address] [address] Monocytes/100 WBC (Bld) 9.9 % Normal 2.0-13.0 [facility] Comment on above: Performed By: #### P RO, APTT, CBC, BMP, GFR, ANEU, ADIFF #### [address] [address] Neutrophils/100 WBC (Bld) 77.2 % High 50.0-75.0 [facility] Comment on above: Performed By: #### P RO, APTT, CBC, BMP, GFR, ANEU, ADIFF #### [address] [address] .GFRon 09-03-2025 Estimated Glomerular Filtration Rate 56 ml/min/1.73sqm Normal [facility] Comment on above: Result Comment: Stages of Chronic Kidney Disease (CKD) Stage Description eGFR(ml/min/1.73 sq.m.) CKD 1 Normal kidney function or >=90 normal kindney function with possible kidney damage (ex. Proteinuria) CKD 2 Kidney damage with mild loss 60-89 of kidney function CKD 3a Mild to moderate loss of kidney 45-59 function CKD 3b Moderate to severe loss of 30-44 of kindey function CKD 4 Severe loss of kidney function 15-29 CKD 5 Kidney failure <15 Note: (go live 2024) the eGFR calculation was updated to the 2020 CKD-EPI creatinine equation without a race factor to calculate the eGFR results. Performed By: #### P RO, APTT, CBC, BMP, GFR, ANEU, ADIFF #### [address] [address] .NEUABSon 09-03-2025 Neutrophil, Absolute 7.2 10 3/mcL Normal 2.3-8.1 [facility] Comment on above: Performed By: #### P RO, APTT, CBC, BMP, GFR, ANEU, ADIFF #### [address] [address] APTTon 09-03-2025 aPTT Coag (Bld) [Time] 38.3 s High 25.0-35.0 [facility] Comment on above: Result Comment: For Heparin anticoagulation therapy, the recommended therapeutic range is: 55.2-92.5 seconds. Patients on heparin therapy may have an extreme result. Performed By: #### P RO, APTT, CBC, BMP, GFR, ANEU, ADIFF #### [address] [address] BMPon 09-03-2025 BUN/Creatinine Ratio 15 ratio Normal 7-27 [facility] Comment on above: Performed By: #### P RO, APTT, CBC, BMP, GFR, ANEU, ADIFF #### [address] [address] Calcium [Mass/Vol] 9.3 mg/dL Normal 8.4-10.2 [facility] Comment on above: Performed By: #### P RO, APTT, CBC, BMP, GFR, ANEU, ADIFF #### [address] [address] Chloride [Moles/Vol] 100 mmol/L Normal 98-107 [facility] Comment on above: Performed By: #### P RO, APTT, CBC, BMP, GFR, ANEU, ADIFF #### [address] [address] CO2 [Moles/Vol] 28 mmol/L Normal 23-31 [facility] Comment on above: Performed By: #### P RO, APTT, CBC, BMP, GFR, ANEU, ADIFF #### [address] [address] Creatinine [Mass/Vol] 1.37 mg/dL High 0.67-1.17 [facility] Comment on above: Performed By: #### P RO, APTT, CBC, BMP, GFR, ANEU, ADIFF #### [address] [address] Electrolyte Balance 7.0 mEq/L Normal 4.0-15.0 [facility] Comment on above: Performed By: #### P RO, APTT, CBC, BMP, GFR, ANEU, ADIFF #### [address] [address] Glucose [Mass/Vol] 122 mg/dL High 80-115 [facility] Comment on above: Performed By: #### P RO, APTT, CBC, BMP, GFR, ANEU, ADIFF #### [address] [address] Potassium [Moles/Vol] 4.6 mmol/L Normal 3.5-5.1 [facility] Comment on above: Performed By: #### P RO, APTT, CBC, BMP, GFR, ANEU, ADIFF #### [address] [address] Sodium [Moles/Vol] 135 mmol/L Low 136-145 [facility] Comment on above: Performed By: #### P RO, APTT, CBC, BMP, GFR, ANEU, ADIFF #### [address] [address] Urea nitrogen [Mass/Vol] 20 mg/dL High 7-18 [facility] Comment on above: Performed By: #### P RO, APTT, CBC, BMP, GFR, ANEU, ADIFF #### [address] [address] CBCon 09-03-2025 Erythrocyte distribution width (RBC) [Ratio] 14.5 % Normal 11.5-15.5 [facility] Comment on above: Performed By: #### P RO, APTT, CBC, BMP, GFR, ANEU, ADIFF #### [address] [address] Hematocrit (Bld) [Volume fraction] 46.2 % Normal 40.0-52.0 [facility] Comment on above: Performed By: #### P RO, APTT, CBC, BMP, GFR, ANEU, ADIFF #### [address] [address] Hgb 15.5 G/dL Normal 13.0-17.5 [facility] Comment on above: Performed By: #### P RO, APTT, CBC, BMP, GFR, ANEU, ADIFF #### [address] [address] MCH (RBC) [Entitic mass] 29.4 pg Normal 27.0-33.0 [facility] Comment on above: Performed By: #### P RO, APTT, CBC, BMP, GFR, ANEU, ADIFF #### [address] [address] MCHC 33.5 G/dL Normal 32.0-36.0 [facility] Comment on above: Performed By: #### P RO, APTT, CBC, BMP, GFR, ANEU, ADIFF #### [address] [address] MCV (RBC) [Entitic vol] 87.6 fL Normal 81.0-100.0 [facility] Comment on above: Performed By: #### P RO, APTT, CBC, BMP, GFR, ANEU, ADIFF #### [address] [address] Platelet 379 10 3/mcL Normal 150-450 [facility] Comment on above: Performed By: #### P RO, APTT, CBC, BMP, GFR, ANEU, ADIFF #### [address] [address] Platelet mean volume (Bld) [Entitic vol] 7.1 fL Normal 6.4-10.5 [facility] Comment on above: Performed By: #### P RO, APTT, CBC, BMP, GFR, ANEU, ADIFF #### [address] [place], [place] [address] RBC 5.27 10 6/mcL Normal 4.50-6.00 [facility] Comment on above: Performed By: #### P RO, APTT, CBC, BMP, GFR, ANEU, ADIFF #### [address] [place], [place] [address] WBC 9.3 10 3/mcL Normal 4.5-10.8 [facility] Comment on above: Performed By: #### P RO, APTT, CBC, BMP, GFR, ANEU, ADIFF #### [address] [place], [place] [address] LABORATORYOrdered By: SYSTEM SYSTEM on 09-03-2025 aPTT Coag (PPP) [Time] 38.3 s High 25.0 - 35.0 seconds AO [facility] SS Comment on above: Interpretive Data: F or Heparin anticoagulation therapy, the recommended therapeutic range is: 55.2-92.5 seconds. Patients on heparin therapy may have an extreme result. Basophils (Bld) [#/Vol] 0.1 103/mcL Normal 0.0 - 0.3 10^3/mcL AO Workflow SS Basophils/100 WBC (Bld) 0.7 % Normal 0.0 - 2.5 % AO Workflow SS Calcium [Mass/Vol] 9.3 mg/dL Normal 8.4 - 10. 2 mg/dL AO ADM SS Chloride [Moles/Vol] 100 mmol/L Normal 98 - 10 7 mmol/L AO ADM SS CO2 [Moles/Vol] 28 mmol/L Normal 23 - 31 mmol/L AO ADM SS Creatinine [Mass/Vol] 1.37 mg/dL High 0.67 - 1.17 mg/dL AO ADM SS Electrolyte Balance 7.0 mEq/L Normal 4.0 - 15 .0 mEq/L AO ADM SS Eosinophil, Absolute 0.1 103/mcL Normal 0.0 - 0 .7 10^3/mcL AO Workflow SS Eosinophils/100 WBC (Bld) 1.0 % Normal 0.0 - 6.0 % AO Workflow SS Erythrocyte distribution width (RBC) [Ratio] 14.5 % Normal 11.5 - 15.5 % AO Workflow SS GLOMERULAR FILTRATION RATE/1.73 SQ M.PREDICTED:ARVRAT:PT:S ER/PLAS/BLD:QN:CREATINI NE-BASED FORMULA (CKD-EPI 2020) 56 ml/min/1.73sqm Invalid Interpretation Code AO Chemistry S Comment on above: Interpretive Data: Stages of Chronic Kidney Disease (CKD) Stage Description eGFR(ml/min/1.73 sq.m.) CKD 1 Normal kidney function or >=90 normal kindney function with possible kidney damage (ex. Proteinuria) CKD 2 Kidney damage with mild loss 60-89 of kidney function CKD 3a Mild to moderate loss of kidney 45-59 function CKD 3b Moderate to severe loss of 30-44 of kindey function CKD 4 Severe loss of kidney function 15-29 CKD 5 Kidney failure <15 Note: (go live 2024) the eGFR calculation was updated to the 2020 CKD-EPI creatinine equation without a race factor to calculate the eGFR results. Glucose [Mass/Vol] 122 mg/dL High 80 - 115 mg/dL AO ADM SS Hematocrit (Bld) [Volume fraction] 46.2 % Normal 40.0 - 52.0 % AO Workflow SS Hemoglobin (Bld) [Mass/Vol] 15.5 G/dL Normal 13.0 - 17.5 G/dL AO Workflow SS INR Coag (PPP) [Relative time] 1.0 {INR} Invalid Interpretation Code AO [facility] SS Comment on above: Interpretive Data: Katelin marrufo [employer] [employer] (CHEST, 1991, 102:312S-25S) recommended therapeutic range for oral anticoagulant therapy is: LOW RISK: Prophylaxis of venous thrombosis INR: 2.0-3.0 Treatment of pulmonary embolism 2.0-3.0 Prevention of systemic embolism 2.0-3.0 HIGH RISK: Mechanical prosthetic valves 2.5-3.5 Lymphocytes (Bld) [#/Vol] 1.0 103/mcL Normal 0.9 - 4.3 10^3/mcL AO Workflow SS Lymphocytes/100 WBC (Bld) 11.2 % Low 20.0 - 40.0 % AO Workflow SS MCH (RBC) [Entitic mass] 29.4 pg Normal 27.0 - 33.0 pg AO Workflow SS MCHC 33.5 G/dL Normal 32.0 - 36.0 G/dL AO Workflow SS MCV (RBC) [Entitic vol] 87.6 fL Normal 81.0 - 100.0 fL AO Workflow SS Monocytes (Bld) [#/Vol] 0.9 103/mcL Normal 0.1 - 1.4 10^3/mcL AO Workflow SS Monocytes/100 WBC (Bld) 9.9 % Normal 2.0 - 13.0 % AO Workflow SS Neutrophils (Bld) [#/Vol] 7.2 103/mcL Normal 2.3 - 8.1 10^3/mcL AO Workflow SS Neutrophils/100 WBC (Bld) 77.2 % High 50.0 - 75.0 % AO Workflow SS Platelet mean volume (Bld) [Entitic vol] 7.1 fL Normal 6.4 - 10.5 fL AO Workflow SS Platelets (Bld) [#/Vol] 379 103/mcL Normal 150 - 450 10^3/mcL AO Workflow SS Potassium [Moles/Vol] 4.6 mmol/L Normal 3.5 - 5.1 mmol/L AO ADM SS PT Coag (PPP) [Time] 11.8 s Normal 9.0 - 1 4.4 seconds AO [facility] SS RBC (Bld) [#/Vol] 5.27 106/mcL Normal 4.50 - 6.0 0 10^6/mcL AO Workflow SS Sodium [Moles/Vol] 135 mmol/L Low 136 - 145 mmol/L AO ADM SS Urea nitrogen [Mass/Vol] 20 mg/dL High 7 - 18 mg/dL AO ADM SS Urea nitrogen/Creatinine [Mass ratio] 15 ratio Normal 7 - 27 ratio AO ADM SS WBC (Bld) [#/Vol] 9.3 103/mcL Normal 4.5 - 10.8 10^3/mcL AO Workflow SS LABORATORYOrdered By: Dulce Willard on 09-03-2025 MRSA (PCR) Not Detected 1 (09/03/25 10:55 AM) Normal Not Detected Auto [facility] SS Comment on above: Result Comment: [place] [id number] MRSA PCR Int See Below 2 *NA* (09/03/25 10:55 AM) Invalid Interpretation Code Auto Viro/Sero SS Comment on above: Result Comment: Clinical Interpretation: MRSA DNA not detected by Real-Time Polymerase Chain Reaction (PCR). A negative result may be due to intermittent colonization. Colonization may vary depending on patient treatment, patient status, or exposure to high-risk environments. As with all PCR based in vitro diagnostic tests, extremely low levels of target below the limit of detection of the assay may be detected, but results may not be reproducible. MRSAPCRon 09-03-2025 MRSA (PCR) Not detected Normal Not Detected [facility] Comment on above: Result Comment: [place] [id number] Performed By: #### M RSAPCR #### [facility] [address] [place] [id number] MRSA PCR Int See Below Normal [facility] Comment on above: Result Comment: Clinical Interpretation: MRSA DNA not detected by Real-Time Polymerase Chain Reaction (PCR). A negative result may be due to intermittent colonization. Colonization may vary depending on patient treatment, patient status, or exposure to high-risk environments. As with all PCR based in vitro diagnostic tests, extremely low levels of target below the limit of detection of the assay may be detected, but results may not be reproducible. Performed By: #### M RSAPCR #### [facility] [address] [place] [address] PROon 09-03-2025 PT Coag (PPP) [Time] 11.8 s Normal 9.0-14.4 [facility] Comment on above: Performed By: #### P RO, APTT, CBC, BMP, GFR, ANEU, ADIFF #### [address] [place], [place] [address] PT International Ratio 1.0 Normal [facility] Comment on above: Result Comment: The [place] [employer] (CHEST, 1992, 102:312S-25S) recommended therapeutic range for oral anticoagulant therapy is: LOW RISK: Prophylaxis of venous thrombosis INR: 2.0-3.0 Treatment of pulmonary embolism 2.0-3.0 Prevention of systemic embolism 2.0-3.0 HIGH RISK: Mechanical prosthetic valves 2.5-3.5 Performed By: #### P RO, APTT, CBC, BMP, GFR, ANEU, ADIFF #### [facility] [address] [place], [place] [address] Emergency Department Summary on 08-31-2025 Emergency Department Summary [facility] Medical Records Department [address] [place] [address] Emergency Department Summary 08/31/25 MR#: [id number] Acct: [id number] Name: LEILANI SPANN Rep #: [id number] : 1955 70 From: Vahe Mullen MD PCP: LINDA Sanchez Status:REG ER Location: ED HPI History of Present Illness Chief Complaint: Back Informant: patient and spouse/S.O. Narrative Narrative: Patient is a 70-year-old male presenting to the ED with severe back pain and recent episodes of bowel and bladder incontinence. Patient is accompanied by his , who is supplementing history. - History obtained from patient and at bedside. - Sustained a work-related injury on 06/27, resulting in a ruptured L3 disc. - MRI performed approximately 1.5 weeks ago. - Unable to see a back surgeon until 09/17. - Reports severe back pain radiating down the leg to the ankle, worsening today. - Denies any recent trauma or re-injury. - Experiencing bowel and bladder incontinence over the weekend. - Has not slept in 3 days due to pain. - Currently taking extra strength Tylenol and naproxen. - Previously prescribed a steroid taper, Percocet, tramadol, and other anti-inflammatories; Percocet was ineffective and caused nausea. Prior similar symptoms: Yes and With Prior Back Pain (no new symptoms now) [facility] Medical History Loose, teeth Cancer Restless legs [...] mg PO Q6H PRN fever or pain Unknown Rx #20 tabs ciprofloxacin HCl 500 mg tablet 500 mg PO BID #10 tabs 10/09/24 Un known Rx (Cipro) phenazopyridine 200 mg tablet 200 mg PO TID 5 days #15 tabs 03/28 Unknown Rx (Pyridium) naproxen 500 mg tablet 500 mg PO BID #10 tabs 05/02/25 Un known Rx tramadol 50 mg tablet 50 mg PO Q6H PRN pain 3 days #10 1 Unknown Rx tabs Allergy/AdvReac Type Severity Reaction Status Date / Time No Known Allergies Allergy Verified 08/31/25 10:49 Surgical History Hx of surgical procedure Hx of surgical amputation of finger Hx of hernia repair History of transurethral resection of bladder tumor (TURBT) Social History household members: spouse Smoking Status: Light Smoker (<10/day) substance use type: does not use ROS ROS ED Constitutional Constitutional ED: Denies chills or fever(s) Gastrointestinal Gastrointestinal: Denies abdominal pain, constipation, fecal incontinence, nausea or vomiting Genitourinary Genitourinary ED: Reports urinary incontinence and other Details: no urinary retention ; Denies abdominal discomfort Musculoskeletal Musculoskeletal: Reports as per HPI and back pain; Denies neck pain Integumentary Denies rash or wounds Neurologic Neurologic: Denies headache(s), paresthesias or weakness EXAM Physical Exam Const Vital Signs: 08/31/25 10:47 Temperature 98 F Temperature Source Temporal Pulse Rate 95 Respiratory Rate 20 H Blood Pressure 161/105 H Blood Pressure Mean 123 Pulse Ox 99 Oxygen Delivery Method Room Air Positive well nourished and well developed Constitutional Narrative: Lying right lateral decubitus, resistant to move, is rubbing his back for him. No distress currently while resting. General Appearance ED: well developed and NAD HEENT Negative for trauma or tenderness Eyes PERRL and EOMs intact bilaterally Neck full ROM and supple GI normal to inspection, nondistended, normoactive bowel sounds, soft to palpation and non-tender Back/Spine normal to inspection Lumbar Spine / Lower Back: ROM limited, paraspinal muscle tenderness left and straight leg raise negative bilaterally; Negative for lumbar spinal tenderness Extremity normal to inspection, full ROM and no pedal edema Neuro oriented x3 and no sensory deficits noted Sensorium / Orientation: alert Motor Exam: strength 5/5 throughout and clonus absent Deep Tendon Reflexes: Rt Patellar (L4): 1+, Lt Patellar (L4): 1+, Rt Ankle (S1): 1+ and Lt Ankle (S1): 1+ Deep Tendon Reflexes Back: Rt Patellar (L4): 1+, Lt Patellar (L4): 1+, Rt Ankle (S1): 1+ and Lt Ankle (S1): 1+ Plantar Reflex: Downgoing: bilateral Psych mental status grossly normal and thought pro (more content not included)... Normal [facility] Emergency Department Summary on 08-19-2025 Emergency Department Summary [facility] Medical Records Department [address] [place] [address] Emergency Department Summary 08/19/25 MR#: [id number] Acct: [id number] Name: LEILANI SPANN Rep #: [id number] : 1955 70 From: Victoriano Boykin MD PCP: LINDA Sanchez Status:DEP ER Location: ED HPI History of Present Illness Chief Complaint: Lower Extremity Injury Detail of Chief Complaint: Low back pain radiating down the leg L3 dermatome Informant: patient Onset/Context/Timing Onset: Days Chronic pain exacerbated by: Initial injury mid June Injury: work related Timing: Continuous Quality: Dull, Aching and Burning Location: Lumbar and - (Left inguinal greater trochanteric area down to medial proximal left leg) Current Severity: Mild Maximum Severity: Severe Worsened by: improves with Movement; worse with Ambulation, Bending, Lifting or Night time pain Relieved by: Nothing Associated Symptoms Associated Symptoms: Radiation to Right Leg (L3 dermatome); Negative for Numbness, Tingling, Fever, Abdominal Pain, Dysuria, Unable to Ambulate, Unable to Transfer, Urinary Retention, Urinary Incontinence, Constipation or Fecal Incontinence Narrative Narrative: Patient is a 70-year-old male. He presents with pain that he states in his left hip. Points to the left greater trochanteric region and goes anteriorly past the knee medially. He denies bowel or bladder dysfunction. He denies foot drop. He denies buckling of his knees going up or down steps. He denies fever or chills. He denies saddle paresthesia or anesthesia. He has had no recent procedures. He denies weight loss or night sweats. Prior similar symptoms: Yes Recent Illness/Hospitalizat ion: Yes (Seen by orthopedic surgeon. Outpatient MRI and hip was ordered.) [facility] Medical History Loose, teeth Cancer Restless legs [...] mg PO Q6H PRN fever or pain Unknown Rx #20 tabs ciprofloxacin HCl 500 mg tablet 500 mg PO BID #10 tabs 10/09/24 Un known Rx (Cipro) phenazopyridine 200 mg tablet 200 mg PO TID 5 days #15 tabs 03/28 Unknown Rx (Pyridium) hydrocodone-acetamin ophen 5-325mg 1 tab PO Q6H PRN PRN Pain 3 days 05/02/25 Unknown Rx 5mg-325mg #10 TABLETS naproxen 500 mg tablet 500 mg PO BID #10 tabs 05/02/25 Un known Rx oxycodone-acetaminop hen 5 mg-325 1 tab PO Q6H PRN PRN pain 5 days 1 Unknown Rx mg tablet #20 TABLETS Allergy/AdvReac Type Severity Reaction Status Date / Time No Known Allergies Allergy Verified 08/19/25 14:03 Surgical History Hx of surgical procedure Hx of surgical amputation of finger Hx of hernia repair History of transurethral resection of bladder tumor (TURBT) Social History household members: spouse Smoking Status: Light Smoker (<10/day) substance use type: does not use ROS ROS ED Constitutional Constitutional ED: Denies chills, fever(s), subjective or sweats Cardiovascular Cardiovascular: Denies chest pain, orthopnea or palpitations Respiratory/Chest Respiratory/Chest: Denies dyspnea, dyspnea on exertion or orthopnea Gastrointestinal Gastrointestinal: Denies abdominal pain, nausea or vomiting Genitourinary Genitourinary ED: Denies dysuria, hematuria or urinary frequency Musculoskeletal Musculoskeletal: Reports back pain; Denies arthralgias or myalgias Integumentary Denies rash Neurologic Neurologic: Denies paresthesias or weakness Hematologic/Lymphati c Hematologic/Lymphati c: Denies easy bleeding or easy bruising EXAM Physical Exam Const Vital Signs: 08/19/25 14:03 08/19/25 18:03 08/19/25 18:57 Temperature 97 F L 97.8 F Temperature Source Temporal Pulse Rate 60 78 91 Respiratory Rate 25 H 16 16 Blood Pressure 127/108 H 139/78 H 141/78 H Blood Pressure Mean 114 98 99 Pulse Ox 97 98 99 Oxygen Delivery Method Room Air Room Air Positive well nourished and well developed Constitutional Narrative: Patient appears uncomfortable he is laying on the examination cart. General Appearance ED: well developed HEENT Reports moist mucous membranes HEENT Narrative: Unremarkable Eyes PERRL and EOMs intact bilaterally General Eye ED: Negative for scleral (more content not included)... Normal [facility] Magnetic resonance imaging r eportOrdered By: Alan Cardenas on 08-19-2025 Study report [facility] Imaging Services [address] [place], [place] [id number] Spine Lumbar (Routine) MR#: [id number] Acct: [id number] Name: LEILANI SPANN Rep #: [id number] : 1955 M 70 From: Yuri Cardenas MD PCP: Celina Delgado [employer] Status: REG ER Study:Spine Lumbar (Routine) Date of Exam: 08/19/25 Exam# [id number] Ordering Dr: Criselda Boykin MD PROCEDURE: MRI SPINE LUMBAR (ROUTINE) 08/19/2025 REASON FOR EXAM: L3 RADICULOPATHY, ABSENT REFLEX AND QUADRICEP WEAK TECHNIQUE: Procedure Code: MRISPL Modality: MR Procedure: SPINE LUMBAR (ROUTINE) Multiplanar and multisequential MRI of the lumbar spine was performed without contrast. COMPARISON: None. FINDINGS: 5 naa-quk-ffwicsc lumbar-type vertebrae are preserved in height, with anatomic alignment. No suspicious marrow lesion. Type 2 degenerative endplate marrow signal changes at L5-S1 with degenerative Schmorl'snode formation along the inferior endplate of L5. Mild multilevel spondylotic changes with varying degrees of disc desiccation andnarrowing, endplate osteophytosis, and hypertrophic facet arthropathy. Conus is normal in signal and morphology, terminating at L1. Normal appearance of the cauda equina. No significant abnormality in the visualized paravertebral soft tissues. Partially imaged mild left hydroureteronephrosi s, with the distal ureter excluded from view. L1-2: No spinal canal or foraminal narrowing. L2-3: No significant spinal canal or neural foraminal narrowing. L3-4: Dorsal disc bulge with superimposed left subarticular disc extrusion, resulting in mild spinal canal narrowing with effacement of the left lateral recess, and mild-moderate bilateral neural foraminal stenosis. Likely impingement of the traversing left L3 and/or L4 nerve roots. L4-5: Mild dorsal annular disc bulging, without significant spinal canal narrowing. Mild-moderate bilateral neural foraminal stenosis. L5-S1: Mild dorsal annular disc bulging, without significant spinal canal narrowing. Mild-moderate bilateral neural foraminal stenosis, greater on the left. MRI/Spine Lumbar (Routine) IMPRESSION: 1. Mild multilevel spondylotic changes, as described. 2. Dorsal disc bulge and left subarticular disc extrusion at L3-4, effacing the left lateral recess likely with impingement of the left L3 and/or L4 nerve roots. 3. Mild-moderate bilateral neural foraminal narrowing at L3-4, L4-5, and L5-S1. Reading Location: [id number] CC: LINDA Delgado; Dr. Victoriano Boykin MD ~ Television Cameraman: Signed [facility] Orbits for Foreign Bodyon Orbits for Foreign Body [facility] Imaging Services [address] [place], [place] [address] Orbits for Foreign Body MR#: [id number] Acct: [id number] Name: LEILANI SPANN Rep #: [id number] : 1955 M 70 From: Gino escoto MD PCP: LINDA Sanchez Status: REG ER Study: Orbits for Foreign Body Date of Exam: 08/19/25 Exam# [id number] Ordering Dr: Victoriano Boykin MD PROCEDURE: ORBITS FOR FOREIGN BODY 08/19/2025 REASON FOR EXAM: HX METAL TO EYE,,PRE MRI TECHNIQUE: Procedure Code: RADORBFB2. Modality: DX Procedure: ORBITS FOR FOREIGN BODY COMPARISON: None FINDINGS: Bones: Unremarkable Sinuses: Unremarkable Additional findings: No radiopaque foreign bodies RAD/Orbits for Foreign Body IMPRESSION: No radiopaque foreign bodies. Reading Location: [place] [address] CC: LINDA Delgado; Dr. Victoriano Boykin MD Television Cameraman: Signed Normal [facility] Spine Lumbar (Routine)on Spine Lumbar (Routine) [facility] Imaging Services [address] [place], [place] [id number] Spine Lumbar (Routine) MR#: [id number] Acct: [id number] Name: LEILANI SPANN Rep #: [id number] : 1955 M 70 From: Alan Cardenas MD PCP: LINDA Sanchez Status: REG ER Study: Spine Lumbar (Routine) Date of Exam: 08/19/25 Exam# [id number] Ordering Dr: Victoriano Boykin MD PROCEDURE: MRI SPINE LUMBAR (ROUTINE) 08/19/2025 REASON FOR EXAM: L3 RADICULOPATHY, ABSENT REFLEX AND QUADRICEP WEAK TECHNIQUE: Procedure Code: MRISPL Modality: MR Procedure: SPINE LUMBAR (ROUTINE) Multiplanar and multisequential MRI of the lumbar spine was performed without contrast. COMPARISON: None. FINDINGS: 5 law-efd-emxfukc lumbar-type vertebrae are preserved in height, with anatomic alignment. No suspicious marrow lesion. Type 2 degenerative endplate marrow signal changes at L5-S1 with degenerative Schmorl's node formation along the inferior endplate of L5. Mild multilevel spondylotic changes with varying degrees of disc desiccation and narrowing, endplate osteophytosis, and hypertrophic facet arthropathy. Conus is normal in signal and morphology, terminating at L1. Normal appearance of the cauda equina. No significant abnormality in the visualized paravertebral soft tissues. Partially imaged mild left hydroureteronephrosi s, with the distal ureter excluded from view. L1-2: No spinal canal or foraminal narrowing. L2-3: No significant spinal canal or neural foraminal narrowing. L3-4: Dorsal disc bulge with superimposed left subarticular disc extrusion, resulting in mild spinal canal narrowing with effacement of the left lateral recess, and mild-moderate bilateral neural foraminal stenosis. Likely impingement of the traversing left L3 and/or L4 nerve roots. L4-5: Mild dorsal annular disc bulging, without significant spinal canal narrowing. Mild-moderate bilateral neural foraminal stenosis. L5-S1: Mild dorsal annular disc bulging, without significant spinal canal narrowing. Mild-moderate bilateral neural foraminal stenosis, greater on the left. MRI/Spine Lumbar (Routine) IMPRESSION: 1. Mild multilevel spondylotic changes, as described. 2. Dorsal disc bulge and left subarticular disc extrusion at L3-4, effacing the left lateral recess likely with impingement of the left L3 and/or L4 nerve roots. 3. Mild-moderate bilateral neural foraminal narrowing at L3-4, L4-5, and L5-S1. Reading Location: [facility] CC: LINDA Delgado; Dr. Victoriano Boykin MD Television Cameraman: Signed [facility] XR HIP 2-3 VIEWS LEFTon - XR HIP 2-3 VIEWS LEFT ORIGINAL EXAMINATION: 2 XRAY VIEWS OF THE LEFT HIP07/21/2025 9:40 am COMPARISON: None HISTORY: ORDERING SYSTEM PROVIDED HISTORY: Reason for Exam: left hip pain, no trauma FINDINGS: There is no fracture or dislocation. The left SI joint and pubic symphysis are within normal limits. Sacral arcuate lines are preserved. The femoroacetabular joint is well maintained with only mild degenerative changes. No suspicious osseous lesions are seen. Left-sided pelvic phleboliths and other vascular calcifications. IMPRESSION: No acute findings. Mild degenerative changes of the hip. I have personally reviewed the images of this examination and agree with the resident's findings and interpretation. Interpreted by: Jaron Cristobal Preliminary Report By: Blaise Modi Electronically signed By Jaron Cristobal Dictated Date: 07/21/2025 10:56:28 AM Prelim Date: 07/21/2025 11:24:16 AM Sign Date: 07/21/2025 11:24:16 AM Ordering Provider: SUSANA Rider [facility] Emergency Department Summary on 05-02-2025 Emergency Department Summary [facility] Medical Records Department [address] [place] [address] Emergency Department Summary 05/02/25 MR#: [id number] Acct: [id number] Name: LEILANI SPANN Rep #: [id number] : 1955 69 From: Victoriano Boykin MD PCP: JIMMY SanchezC Status:REG ER Location: ED HPI History of Present Illness Chief Complaint: Other, Pain/Inj Detail of Chief Complaint: Pain right shoulder, bruising and pain right arm and pain right groin Informant: patient and spouse/S.O. Onset/Context/Timing Onset: Days Context: Sudden Onset Timing: Continuous and Waxes and wanes Quality: Pain right shoulder with click, right arm with bruising and right groin Current Severity: Mild Maximum Severity: Severe Worsened by: The right groin pain is severe with movement Relieved by: Nothing Associated Symptoms Associated Symptoms: Denies paresthesia, anesthesia or motor weakness. 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 He is on no antithrombotic or anticoagulant he complains of pain in his right shoulder. Gets a clicking occasionally with movement. He has no history of direct trauma to his knowledge or recollection he denies paresthesia, anesthesia or motor weakness upper extremity or lower extremity on the right. He denies symptoms of claudication right lower extremity. He denies fever, chills night sweats. He has no known history of rheumatoid arthritis or autoimmune. Patient apparently does move objects with his right lower extremity. He may kick something out of the way as well. There is no history of VTE. He has no risk factors for VTE. He has no cardiopulmonary symptoms. Patient has no contraindication to NSAIDs i.e. hypertension, diabetes, renal disease or peptic ulcer disease. Prior similar symptoms: No Recent Illness/Hospitalizat ion: No PFSH PFSH Medical History Loose, teeth Cancer Restless [...] mg PO Q6H PRN fever or pain Unknown Rx #20 tabs ciprofloxacin HCl 500 mg tablet 500 mg PO BID #10 tabs 10/09/24 Un known Rx (Cipro) phenazopyridine 200 mg tablet 200 mg PO TID 5 days #15 tabs 03/28 Unknown Rx (Pyridium) hydrocodone-acetamin ophen 5-325mg 1 tab PO Q6H PRN PRN Pain 3 days 05/02/25 Unknown Rx 5mg-325mg #10 TABLETS naproxen 500 mg tablet 500 mg PO BID #10 tabs 05/02/25 Un known Rx Allergy/AdvReac Type Severity Reaction Status Date / Time No Known Allergies Allergy Verified 05/02/25 15:55 Surgical History Hx of surgical procedure Hx of surgical amputation of finger Hx of hernia repair History of transurethral resection of bladder tumor (TURBT) Social History (Updated 05/02/25 @ 16:[address] Victoriano Boykin MD) household members: spouse Smoking Status: Light Smoker (<10/day) substance use type: does not use ROS ROS ED Constitutional Constitutional ED: Denies chills, fever(s), subjective, sweats or weight loss Eyes Eyes: Denies blurry vision or change in vision ENT ENT ED: Denies ear pain, rhinorrhea or sore throat Cardiovascular Cardiovascular: Denies chest pain or palpitations Respiratory/Chest Respiratory/Chest: Denies cough, dyspnea or dyspnea on exertion Gastrointestinal Gastrointestinal: Denies abdominal pain, nausea or vomiting Genitourinary Genitourinary ED: Denies dysuria, hematuria or urinary frequency Musculoskeletal Musculoskeletal: Reports other Details: HPI narrative ; Denies arthralgias or myalgias Integumentary Reports other Details: Bruising right arm and swelling ; Denies Abrasions or rash Neurologic Neurologic: Denies paresthesias or weakness Hematologic/Lymphati c Hematologic/Lymphati c: Reports systems reviewed and no addt'l complaints, except as documented EXAM Physical Exam Const Vital Signs: 05/02/25 15:53 05/02/25 16:11 Temperature 97.3 F L Temperature Source Oral Pulse Rate 94 Respiratory Rate 18 Respiratory Effort Normal Non-Labored Blood Pressure 154/95 H Blood Pressure Mean 114 Pulse Ox 98 Positive well nourished and well developed Constitutional Narrative: Blood pressure is elevated 154/95. Patient is in obvious discomfort when he attempts to movement complains of pain in his right groin area. Gener (more content not included)... Normal [facility] Pelvis 1 or 2 Viewson 2024 Pelvis 1 or 2 Views [facility] Imaging Services [address] [place] [address] Pelvis 1 or 2 Views MR#: [id number] Acct: [id number] Name: LEILANI SPANN Rep #: [id number] : 1955 M 69 From: Savanna Gillespie nd, MD PCP: JIMMY SanchezC Status: REG ER Study: Pelvis 1 or 2 Views Date of Exam: 05/02/25 Exam# [id number] Ordering Dr: Victoriano Boykin MD PROCEDURE: PELVIS 1 OR 2 VIEWS 05/02/2025 REASON FOR EXAM: INJURY/PAIN TECHNIQUE: PELVIS 1 OR 2 VIEWS COMPARISON: None. FINDINGS: Hardware: None. Bones: No acute fracture. No aggressive osseous lesions. Joints: Moderate degenerative changes. soft tissues: Soft tissues are unremarkable. Other: Scattered vascular calcifications and phleboliths. RAD/Pelvis 1 or 2 Views IMPRESSION: NO ACUTE FINDINGS. DEGENERATIVE CHANGES. Reading Location: [facility] CC: [employer] Celina Delgado; Dr. Victoriano Boykin MD Television Cameraman: Signed Normal [facility] Shoulder min 2 Viewson 05-02 Shoulder min 2 Views [facility] Imaging Services [address] [place], [place] [address] Shoulder min 2 Views MR#: [id number] Acct: [id number] Name: LEILANI SPANN Rep #: [id number] : 1955 M 69 From: Savanna Gillespie nd, MD PCP: Celina Delgado NP-C Status: REG ER Study: Shoulder min 2 Views Date of Exam: 05/02/25 Exam# [id number] Ordering Dr: Victoriano Boykin MD PROCEDURE: SHOULDER MIN 2 VIEWS 05/02/2025 REASON FOR EXAM: INJURY/PAIN TECHNIQUE: SHOULDER MIN 2 VIEWS COMPARISON: None. FINDINGS: Bones: No acute fracture or aggressive osseous lesion. Joints: Normal alignment. Moderate degenerative changes of the glenohumeral and acromioclavicular joints. Soft tissues: Soft tissues are unremarkable. Other: The visualized right lung is unremarkable. RAD/Shoulder min 2 Views IMPRESSION: DEGENERATIVE OSTEOARTHROSIS. NO ACUTE FINDINGS. Reading Location: [facility] CC: [employer] Celina Delgado; Dr. Victoriano Boykin MD Television Cameraman: Signed Normal [facility] Consultation - Infectious Dx on 10-08-2024 Consultation - Infectious Dx [facility] Medical Records Department [address] [place] [id number] Consultation - Infectious Dx 10/08/24 1527 MR#: [id number] Acct: [id number] Name: LEILANI SPANN Rep #: [id number] : 1955 69 From: Dennis Little MD PCP: JIMMY SanchezC Status:ADM IN Location: [facility] [id number] Assessment Plan Assessment/Plan (1) Painful bladder spasm: [...] Reason for Consultation: uti HPI Narrative: LEILANI SPANN, is a 69 M with bladder cancer, received BCG, now on mitomycin-C for about a month. Reports since starting mitomycin, ongoing pain, bladder spasms, not feeling well. Sx cont to worsen, poor appetite. Admitted here, started on cipro, given fluids, feeling better. Spasms resolved, has been able to sleep. No fever or chills. Full ROS performed and neg except as noted above. [facility] Medical History Loose, teeth Cancer Restless legs [...] 10/08/24 1533 Cosigner Signature (if applicable): CC: LINDA Delgado Signed Normal [facility] Urine Cultureon 10-07-2024 URC Culture exhibits no growth. Normal [facility] Comment on above: Performed By: #### M 100.2200 #### [facility] Laboratory [address] [place], [address] Basic Metabolic Profile (BMP )on 10-06-2024 BUN/CRE 20.6 RATIO High 10-20 [facility] Comment on above: Performed By: #### L 100.0100, L500.2500 #### [facility] [address] [place], [address] CA,Total 9.3 mg/dL Normal 8.5-10.1 [facility] Comment on above: Performed By: #### L 100.0100, L500.2500 #### [facility] [address] [place], [address] Chloride [Moles/Vol] 111 mmol/L High 98-107 [facility] Comment on above: Performed By: #### L 100.0100, L500.2500 #### [facility] [address] [place], [address] CO2 [Moles/Vol] 24.0 mmol/L Normal 21.0-32.0 [facility] Comment on above: Performed By: #### L 100.0100, L500.2500 #### [facility] [address] [place], [address] Creatinine [Mass/Vol] 1.02 mg/dL Normal 0.70-1.30 [facility] Comment on above: Result Comment: The validity of the calculated GFR GFRAA in patients over 70 years has not been determined. Clinical correlation is essential. Performed By: #### L 100.0100, L500.2500 #### [facility] [address] [place], [address] ECRCL 68.49 ml/min Normal [facility] Comment on above: Performed By: #### L 100.0100, L500.2500 #### [facility] [address] [place], [address] EST GFR - AA 94 mL/min Normal >60 [facility] Comment on above: Result Comment: Afri can Cameroonian GFR Calc Performed By: #### L 100.0100, L500.2500 #### [facility] [address] [place], [address] GAP 4 Low 5-15 [facility] Comment on above: Performed By: #### L 100.0100, L500.2500 #### [facility] [address] [place], [address] GFR/1.73 sq M.predicted among non-blacks MDRD (S/P/Bld) [Vol rate/Area] 77 mL/min/{1.73_m2} Normal >60 [facility] Comment on above: Result Comment: Non- GFR Calc Performed By: #### L 100.0100, L500.2500 #### [facility] [address] [place], [address] Glucose [Mass/Vol] 117 mg/dL High 74-106 [facility] Comment on above: Result Comment: Fast ing Glucose result from 100 to 125 mg/dL suggests IMPAIRED HOMEOSTASIS per A.D.A. criteria. Performed By: #### L 100.0100, L500.2500 #### [facility] [address] [place], [address] Potassium [Moles/Vol] 4.1 mmol/L Normal 3.5-5.1 [facility] Comment on above: Performed By: #### L 100.0100, L500.2500 #### [facility] [address] [place], [address] Sodium [Moles/Vol] 140 mmol/L Normal 136-145 [facility] Comment on above: Performed By: #### L 100.0100, L500.2500 #### [facility] [address] [place], [address] Urea nitrogen [Mass/Vol] 21 mg/dL High 7-18 [facility] Comment on above: Performed By: #### L 100.0100, L500.2500 #### [facility] [address] [place], [address] CBC W/Diff, Automatedon 12-0 2-4 Absolute Lymph 0.84 X10 3/uL Normal 0.83-4.51 [facility] Comment on above: Performed By: #### L 100.0100, L500.2500 #### [facility] [address] [place], [address] Absolute Neut 7.4 X10 3/uL Normal 2.0-7.7 [facility] Comment on above: Performed By: #### L 100.0100, L500.2500 #### [facility] [address] [place], [address] Basophils/100 WBC (Bld) 0.8 % Normal 0-1 [facility] Comment on above: Performed By: #### L 100.0100, L500.2500 #### [facility] [address] [place], [address] Eosinophils/100 WBC (Bld) 3.9 % Normal 0-5 [facility] Comment on above: Performed By: #### L 100.0100, L500.2500 #### [facility] [address] [place], [address] Erythrocyte distribution width (RBC) [Ratio] 19.0 % High 11.6-14.6 [facility] Comment on above: Performed By: #### L 100.0100, L500.2500 #### [facility] [address] [place], [address] Hematocrit (Bld) [Volume fraction] 47.1 % Normal 40-54 [facility] Comment on above: Performed By: #### L 100.0100, L500.2500 #### [facility] [address] [place], [address] Hemoglobin (Bld) [Mass/Vol] 14.6 g/dL Normal 13.0-16.5 [facility] Comment on above: Performed By: #### L 100.0100, L500.2500 #### [facility] [address] [place], [address] IG% 0.300 Normal 0.0-0.9 [facility] Comment on above: Result Comment: IG% - Immature Granulocytes (promyelocytes, myelocytes and metamyelocytes) > 1% indicates that a LEFT SHIFT is Present. Performed By: #### L 100.0100, L500.2500 #### [facility] [address] [facility] [place], [address] Lymphocytes/100 WBC (Bld) 8.9 % Low 19-41 [facility] Comment on above: Performed By: #### L 100.0100, L500.2500 #### [facility] [address] [place], [address] MCH (RBC) [Entitic mass] 26.0 pg Low 27.0-32.0 [facility] Comment on above: Performed By: #### L 100.0100, L500.2500 #### [facility] [address] [place], [address] MCHC (RBC) [Mass/Vol] 31.0 g/dL Low 32-36 [facility] Comment on above: Performed By: #### L 100.0100, L500.2500 #### [facility] [address] [place], [address] MCV (RBC) [Entitic vol] 84.0 fL Normal 80-94 [facility] Comment on above: Performed By: #### L 100.0100, L500.2500 #### [facility] [address] [place], [address] Monocytes/100 WBC (Bld) 7.9 % Normal 0-10 [facility] Comment on above: Performed By: #### L 100.0100, L500.2500 #### [facility] [address] [place], [address] Neutrophils/100 WBC (Bld) 78.2 % High 47-70 [facility] Comment on above: Performed By: #### L 100.0100, L500.2500 #### [facility] [address] [place], [address] Nucleated RBC (Bld) [#/Vol] 0 10*3/uL Normal 0-5 [facility] Comment on above: Performed By: #### L 100.0100, L500.2500 #### [facility] [address] [place], [address] Platelet mean volume (Bld) [Entitic vol] 9.3 fL Normal 6.2-12.0 [facility] Comment on above: Performed By: #### L 100.0100, L500.2500 #### [facility] [address] [place], [address] Platelets (Bld) [#/Vol] 326 10*3/uL Normal 150-450 [facility] Comment on above: Performed By: #### L 100.0100, L500.2500 #### [facility] [address] [place], [address] RBC (Bld) [#/Vol] 5.61 10*6/uL Normal 4.6-6.2 [facility] Comment on above: Performed By: #### L 100.0100, L500.2500 #### [facility] [address] [place], [address] RDW SD 56.4 fl High 35.1-43.9 [facility] Comment on above: Performed By: #### L 100.0100, L500.2500 #### [facility] [address] [place], [place], [address] WBC (Bld) [#/Vol] 9.5 10*3/uL Normal 4.4-11.0 [facility] Comment on above: Performed By: #### L 100.0100, L500.2500 #### [facility] [address] [place], [address] Emergency Department Summary on 10-06-2024 Emergency Department Summary [facility] Medical Records Department [address] [place] [address] Emergency Department Summary 10/06/24 MR#: [id number] Acct: [id number] Name: LEILANI SPANN Rep #: [id number] : 1955 69 From: Vahe Mullen MD PCP: JIMMY SanchezC Status:ADM IN Location: [place] [address] HPI History of Present Illness Chief Complaint: Complaint [...] Now he has symptoms of urinary retention. [facility] Medical History Loose, teeth Cancer Restless legs [...] and blood (more content not included)... Normal [facility] Urinalysis, Completeon 10-06 WBC 10-25 SEEN Normal 0-5 [facility] Comment on above: Order Comment: COLOR OF URINE MAY AFFECT DIPSTICK RESULTS. DEMAND PLANNING MANAGER TO SPECIFY Performed By: #### L 400.0001 #### [facility] [address] [place], [address] BACTERIA 4+ /hpf Normal None Seen [facility] Comment on above: Order Comment: COLOR OF URINE MAY AFFECT DIPSTICK RESULTS. DEMAND PLANNING MANAGER TO SPECIFY Performed By: #### L 400.0001 #### [facility] [address] [facility] [address] RBC > 100 SEEN Normal 0-5 [facility] Comment on above: Order Comment: COLOR OF URINE MAY AFFECT DIPSTICK RESULTS. DEMAND PLANNING MANAGER TO SPECIFY Performed By: #### L 400.0001 #### [facility] [address] [place], [address] EPI,SQUAMOUS 0 SEEN Normal 0-5 [facility] Comment on above: Order Comment: COLOR OF URINE MAY AFFECT DIPSTICK RESULTS. DEMAND PLANNING MANAGER TO SPECIFY Performed By: #### L 400.0001 #### [facility] [address] [place], [address] Mucus Ql (Urine sed) 0 SEEN Normal [facility] Comment on above: Order Comment: COLOR OF URINE MAY AFFECT DIPSTICK RESULTS. DEMAND PLANNING MANAGER TO SPECIFY Performed By: #### L 400.0001 #### [facility] [address] [place], [address] .Auto Diffon 02-06-2024 Basophil, Absolute 0.1 10 3/mcL Normal 0.0-0.2 [facility] ([place]) Comment on above: Performed By: #### A FRANC, LIPID, ADIFF, CBC, TSH, CMP, MORPH, GFR, PSA #### [address] [address] Basophils/100 WBC (Bld) 1.5 % Normal 0.0-2.5 A [facility] ([place] Comment on above: Performed By: #### A FRANC, LIPID, ADIFF, CBC, TSH, CMP, MORPH, GFR, PSA #### [address] [address] Eosinophil, Absolute 0.3 10 3/mcL Normal 0.0-0.4 [facility] ([place] Comment on above: Performed By: #### A FRANC, LIPID, ADIFF, CBC, TSH, CMP, MORPH, GFR, PSA #### [address] [address] Eosinophils/100 WBC (Bld) 5.8 % Normal 0.0-7.0 [facility] ([place] Comment on above: Performed By: #### A FRANC, LIPID, ADIFF, CBC, TSH, CMP, MORPH, GFR, PSA #### [address] [address] Lymphocyte, Absolute 1.6 10 3/mcL Normal 0.8-3.9 [facility] ([place] Comment on above: Performed By: #### A FRANC, LIPID, ADIFF, CBC, TSH, CMP, MORPH, GFR, PSA #### [address] [address] Lymphocytes/100 WBC (Bld) 28.1 % Normal 10.0-50.0 [facility] ([place] Comment on above: Performed By: #### A FRANC, LIPID, ADIFF, CBC, TSH, CMP, MORPH, GFR, PSA #### [address] [address] Monocyte, Absolute 0.7 10 3/mcL Normal 0.2-1.0 [facility] ([place] Comment on above: Performed By: #### A FRANC, LIPID, ADIFF, CBC, TSH, CMP, MORPH, GFR, PSA #### [address] [address] Monocytes/100 WBC (Bld) 12.4 % Normal 1.7-13.0 [facility] ([place] Comment on above: Performed By: #### A FRANC, LIPID, ADIFF, CBC, TSH, CMP, MORPH, GFR, PSA #### [address] [address] Neutrophils/100 WBC (Bld) 52.2 % Normal 37.0-80.0 [facility] ([place] Comment on above: Performed By: #### A FRANC, LIPID, ADIFF, CBC, TSH, CMP, MORPH, GFR, PSA #### [address] [address] .Morphon 02-06-2024 Anisocytosis Ql (Bld) 2+ Normal [facility] ([place] Comment on above: Performed By: #### A FRANC, LIPID, ADIFF, CBC, TSH, CMP, MORPH, GFR, PSA #### [address] [address] Hypochrom 1+ Normal [facility] ([place] Comment on above: Performed By: #### A FRANC, LIPID, ADIFF, CBC, TSH, CMP, MORPH, GFR, PSA #### [address] [address] Microcytosis 2+ Normal [facility] ([place] Comment on above: Performed By: #### A FRANC, LIPID, ADIFF, CBC, TSH, CMP, MORPH, GFR, PSA #### [address] [address] Ovalocytes 1+ Normal [facility] ([place] Comment on above: Performed By: #### A FRANC, LIPID, ADIFF, CBC, TSH, CMP, MORPH, GFR, PSA #### [address] [address] Platelet Estimate Normal Normal [facility] ([place] Comment on above: Performed By: #### A FRANC, LIPID, ADIFF, CBC, TSH, CMP, MORPH, GFR, PSA #### [address] [address] Poik 2+ Normal [facility] ([place] Comment on above: Performed By: #### A FRANC, LIPID, ADIFF, CBC, TSH, CMP, MORPH, GFR, PSA #### [place] [address] Tear Cell 1+ Normal [facility] ([place] Comment on above: Performed By: #### A FRANC, LIPID, ADIFF, CBC, TSH, CMP, MORPH, GFR, PSA #### [place] [address] .NEUABSon 02-06-2024 Neutrophil, Absolute 3.0 10 3/mcL Normal 2.9-6.2 [facility]) Comment on above: Performed By: #### A FRANC, LIPID, ADIFF, CBC, TSH, CMP, MORPH, GFR, PSA #### [place] [address] CBCon 02-06-2024 Erythrocyte distribution width (RBC) [Ratio] 27.3 % High 11.5-14.5 [facility] ([place] Comment on above: Performed By: #### A FRANC, LIPID, ADIFF, CBC, TSH, CMP, MORPH, GFR, PSA #### [place] [address] Hematocrit (Bld) [Volume fraction] 34.7 % Low 42.0-52.0 [facility] ([place] Comment on above: Performed By: #### A FRANC, LIPID, ADIFF, CBC, TSH, CMP, MORPH, GFR, PSA #### [address] [address] Hgb 11.1 G/dL Low 14.0-18.0 [facility] ([place] Comment on above: Performed By: #### A FRANC, LIPID, ADIFF, CBC, TSH, CMP, MORPH, GFR, PSA #### [address] [address] MCH (RBC) [Entitic mass] 21.1 pg Low 27.0-31.2 [facility] ([place] Comment on above: Performed By: #### A FRANC, LIPID, ADIFF, CBC, TSH, CMP, MORPH, GFR, PSA #### [address] [address] MCHC 32.0 G/dL Normal 31.8-35.4 [facility] ([place] Comment on above: Performed By: #### A FRANC, LIPID, ADIFF, CBC, TSH, CMP, MORPH, GFR, PSA #### [address] [address] MCV (RBC) [Entitic vol] 66.0 fL Low 80.0-94.0 A [facility] ([place] Comment on above: Performed By: #### A FRANC, LIPID, ADIFF, CBC, TSH, CMP, MORPH, GFR, PSA #### [address] [address] Platelet 400 10 3/mcL Normal 130-400 [facility] ([place] Comment on above: Performed By: #### A FRANC, LIPID, ADIFF, CBC, TSH, CMP, MORPH, GFR, PSA #### [address] [address] Platelet mean volume (Bld) [Entitic vol] 8.2 fL Normal 7.4-10.4 [facility] ([place] Comment on above: Performed By: #### A FRANC, LIPID, ADIFF, CBC, TSH, CMP, MORPH, GFR, PSA #### [address] [address] RBC 5.26 10 6/mcL Normal 4.04-6.13 [facility] ([place] Comment on above: Performed By: #### A FRANC, LIPID, ADIFF, CBC, TSH, CMP, MORPH, GFR, PSA #### [address] [address] WBC 5.7 10 3/mcL Normal 4.6-10.8 [facility] ([place] Comment on above: Performed By: #### A FRANC, LIPID, ADIFF, CBC, TSH, CMP, MORPH, GFR, PSA #### [address] [address] .Auto Diffon 12-14-2023 Basophil, Absolute 0.1 10 3/mcL Normal 0.0-0.2 [facility] ([place] Comment on above: Performed By: #### A FRANC, LIPID, ADIFF, CBC, TSH, CMP, MORPH, GFR, PSA #### [address] [address] Basophils/100 WBC (Bld) 2.2 % Normal 0.0-2.5 A [facility] ([place] Comment on above: Performed By: #### A FRANC, LIPID, ADIFF, CBC, TSH, CMP, MORPH, GFR, PSA #### [address] [address] Eosinophil, Absolute 0.3 10 3/mcL Normal 0.0-0.4 [facility] ([place] Comment on above: Performed By: #### A FRANC, LIPID, ADIFF, CBC, TSH, CMP, MORPH, GFR, PSA #### [address] [address] Eosinophils/100 WBC (Bld) 4.9 % Normal 0.0-7.0 [facility] ([place] Comment on above: Performed By: #### A FRANC, LIPID, ADIFF, CBC, TSH, CMP, MORPH, GFR, PSA #### [address] [address] Lymphocyte, Absolute 1.1 10 3/mcL Normal 0.8-3.9 [facility] ([place] Comment on above: Performed By: #### A FRANC, LIPID, ADIFF, CBC, TSH, CMP, MORPH, GFR, PSA #### [address] [address] Lymphocytes/100 WBC (Bld) 19.7 % Normal 10.0-50.0 [facility] ([place] Comment on above: Performed By: #### A FRANC, LIPID, ADIFF, CBC, TSH, CMP, MORPH, GFR, PSA #### [address] [address] Monocyte, Absolute 0.7 10 3/mcL Normal 0.2-1.0 [facility] ([place] Comment on above: Performed By: #### A FRANC, LIPID, ADIFF, CBC, TSH, CMP, MORPH, GFR, PSA #### [address] [address] Monocytes/100 WBC (Bld) 12.8 % Normal 1.7-13.0 [facility] ([place] Comment on above: Performed By: #### A FRANC, LIPID, ADIFF, CBC, TSH, CMP, MORPH, GFR, PSA #### [address] [address] Neutrophils/100 WBC (Bld) 60.4 % Normal 37.0-80.0 [facility] ([place] Comment on above: Performed By: #### A FRANC, LIPID, ADIFF, CBC, TSH, CMP, MORPH, GFR, PSA #### [address] [address] .GFRon 12-14-2023 GFR 99 ml/min/1.73sqm Normal [facility] ([place] Comment on above: Result Comment: GFR Population [...] CBC, TSH, CMP, MORPH, GFR, PSA #### [address] [address] GFR Non- 81 ml/min/1.73sqm Normal [facility] ([place] Comment on above: Result Comment: GFR Population [...] CBC, TSH, CMP, MORPH, GFR, PSA #### [address] [address] .Morphon 12-14-2023 Anisocytosis Ql (Bld) 3+ Normal [facility] ([place] Comment on above: Performed By: #### A FRANC, LIPID, ADIFF, CBC, TSH, CMP, MORPH, GFR, PSA #### [address] [address] Hypochrom 1+ Normal [facility] ([place] Comment on above: Performed By: #### A FRANC, LIPID, ADIFF, CBC, TSH, CMP, MORPH, GFR, PSA #### [address] [address] Microcytosis 2+ Normal [facility] ([place] Comment on above: Performed By: #### A FRANC, LIPID, ADIFF, CBC, TSH, CMP, MORPH, GFR, PSA #### [address] [address] Ovalocytes 1+ Normal [facility] ([place] Comment on above: Performed By: #### A FRANC, LIPID, ADIFF, CBC, TSH, CMP, MORPH, GFR, PSA #### [address] [address] Platelet Estimate Slt Increased Normal [facility] ([place] Comment on above: Performed By: #### A FRANC, LIPID, ADIFF, CBC, TSH, CMP, MORPH, GFR, PSA #### [address] [address] Poik 1+ Normal [facility] ([place] Comment on above: Performed By: #### A FRANC, LIPID, ADIFF, CBC, TSH, CMP, MORPH, GFR, PSA #### [address] [address] Polychrom 1+ Normal [facility] ([place] Comment on above: Performed By: #### A FRANC, LIPID, ADIFF, CBC, TSH, CMP, MORPH, GFR, PSA #### [address] [address] Tear Cell 1+ Normal [facility] ([place] Comment on above: Performed By: #### A FRANC, LIPID, ADIFF, CBC, TSH, CMP, MORPH, GFR, PSA #### [place] [address] .NEUABSon 12-14-2023 Neutrophil, Absolute 3.3 10 3/mcL Normal 2.9-6.2 [facility] ([place] Comment on above: Performed By: #### A FRANC, LIPID, ADIFF, CBC, TSH, CMP, MORPH, GFR, PSA #### [address] [address] CBCon 12-14-2023 Erythrocyte distribution width (RBC) [Ratio] 31.6 % High 11.5-14.5 [facility] ([place] Comment on above: Performed By: #### A FRANC, LIPID, ADIFF, CBC, TSH, CMP, MORPH, GFR, PSA #### [address] [address] Hematocrit (Bld) [Volume fraction] 29.2 % Low 42.0-52.0 [facility] ([place] Comment on above: Performed By: #### A FRANC, LIPID, ADIFF, CBC, TSH, CMP, MORPH, GFR, PSA #### [address] [address] Hgb 9.0 G/dL Low 14.0-18.0 [facility] ([place] Comment on above: Performed By: #### A FRANC, LIPID, ADIFF, CBC, TSH, CMP, MORPH, GFR, PSA #### [address] [address] MCH (RBC) [Entitic mass] 21.5 pg Low 27.0-31.2 [facility] ([place] Comment on above: Performed By: #### A FRANC, LIPID, ADIFF, CBC, TSH, CMP, MORPH, GFR, PSA #### [address] [address] MCHC 30.9 G/dL Low 31.8-35.4 [facility] ([place] Comment on above: Performed By: #### A FRANC, LIPID, ADIFF, CBC, TSH, CMP, MORPH, GFR, PSA #### [address] [address] MCV (RBC) [Entitic vol] 69.5 fL Low 80.0-94.0 [facility] ([place] Comment on above: Performed By: #### A FRANC, LIPID, ADIFF, CBC, TSH, CMP, MORPH, GFR, PSA #### [address] [address] Platelet 578 10 3/mcL High 130-400 [facility] ([place] Comment on above: Performed By: #### A FRANC, LIPID, ADIFF, CBC, TSH, CMP, MORPH, GFR, PSA #### [address] [address] Platelet mean volume (Bld) [Entitic vol] 6.4 fL Low 7.4-10.4 [facility] ([place] Comment on above: Performed By: #### A FRANC, LIPID, ADIFF, CBC, TSH, CMP, MORPH, GFR, PSA #### [address] [address] RBC 4.21 10 6/mcL Normal 4.04-6.13 [facility] ([place] Comment on above: Performed By: #### A FRANC, LIPID, ADIFF, CBC, TSH, CMP, MORPH, GFR, PSA #### [address] [address] WBC 5.5 10 3/mcL Normal 4.6-10.8 [facility] ([place] Comment on above: Performed By: #### A FRANC, LIPID, ADIFF, CBC, TSH, CMP, MORPH, GFR, PSA #### [address] [address] CMPon 12-14-2023 Albumin Level 3.3 G/dL Low 3.4-4.8 [facility] ([place] Comment on above: Performed By: #### A FRANC, LIPID, ADIFF, CBC, TSH, CMP, MORPH, GFR, PSA #### [address] [address] Albumin/Globulin [Mass ratio] 0.9 {ratio} Low 1.1-2.5 [facility] ([place] Comment on above: Performed By: #### A FRANC, LIPID, ADIFF, CBC, TSH, CMP, MORPH, GFR, PSA #### [address] [address] ALP [Catalytic activity/Vol] 89 U/L Normal 40-135 [facility] ([place] Comment on above: Performed By: #### A FRANC, LIPID, ADIFF, CBC, TSH, CMP, MORPH, GFR, PSA #### [address] [address] ALT [Catalytic activity/Vol] 32 U/L Normal 16-63 [facility] ([place] Comment on above: Performed By: #### A FRANC, LIPID, ADIFF, CBC, TSH, CMP, MORPH, GFR, PSA #### [address] [address] AST [Catalytic activity/Vol] 23 U/L Normal 10-40 [facility] ([place] Comment on above: Performed By: #### A FRANC, LIPID, ADIFF, CBC, TSH, CMP, MORPH, GFR, PSA #### [address] [address] Bili Total 0.2 mg/dL Normal 0.2-1.0 [facility] ([place] Comment on above: Result Comment: Use of this assay is not recommended for patients undergoing treatment with eltrombopag due to the potential for falsely elevated results. Performed By: #### A FRANC, LIPID, ADIFF, CBC, TSH, CMP, MORPH, GFR, PSA #### [address] [address] BUN/Creatinine Ratio 19 ratio Normal 7-27 [facility] ([place]) Comment on above: Performed By: #### A FRANC, LIPID, ADIFF, CBC, TSH, CMP, MORPH, GFR, PSA #### [address] [address] Calcium [Mass/Vol] 8.6 mg/dL Normal 8.4-10.2 [facility] ([place]) Comment on above: Performed By: #### A FRANC, LIPID, ADIFF, CBC, TSH, CMP, MORPH, GFR, PSA #### [address] [address] Chloride [Moles/Vol] 105 mmol/L Normal 98-107 [facility] ([place]) Comment on above: Performed By: #### A FRANC, LIPID, ADIFF, CBC, TSH, CMP, MORPH, GFR, PSA #### [address] [address] CO2 [Moles/Vol] 24 mmol/L Normal 23-31 [facility] ([place] Comment on above: Performed By: #### A FRANC, LIPID, ADIFF, CBC, TSH, CMP, MORPH, GFR, PSA #### [address] [address] Creatinine [Mass/Vol] 0.93 mg/dL Normal 0.70-1.30 [facility] ([place] Comment on above: Performed By: #### A FRANC, LIPID, ADIFF, CBC, TSH, CMP, MORPH, GFR, PSA #### [address] [address] Electrolyte Balance 12.0 mEq/L Normal 4.0-15.0 [facility] ([place] Comment on above: Performed By: #### A FRANC, LIPID, ADIFF, CBC, TSH, CMP, MORPH, GFR, PSA #### [address] [address] Globulin 3.6 G/dL Normal [facility] ([place] Comment on above: Performed By: #### A FRANC, LIPID, ADIFF, CBC, TSH, CMP, MORPH, GFR, PSA #### [address] [address] Glucose [Mass/Vol] 114 mg/dL Normal 80-115 [facility] ([place] Comment on above: Performed By: #### A FRANC, LIPID, ADIFF, CBC, TSH, CMP, MORPH, GFR, PSA #### [address] [address] Potassium [Moles/Vol] 4.5 mmol/L Normal 3.5-5.1 [facility] ([place] Comment on above: Performed By: #### A FRANC, LIPID, ADIFF, CBC, TSH, CMP, MORPH, GFR, PSA #### [address] [address] Sodium [Moles/Vol] 141 mmol/L Normal 136-145 [facility] ([place] Comment on above: Performed By: #### A FRANC, LIPID, ADIFF, CBC, TSH, CMP, MORPH, GFR, PSA #### [address] [address] Total Protein 6.9 G/dL Normal 6.4-8.2 [facility] ([place] Comment on above: Performed By: #### A FRANC, LIPID, ADIFF, CBC, TSH, CMP, MORPH, GFR, PSA #### [address] [address] Urea nitrogen [Mass/Vol] 18 mg/dL Normal 7-18 [facility] ([place] Comment on above: Performed By: #### A FRANC, LIPID, ADIFF, CBC, TSH, CMP, MORPH, GFR, PSA #### [address] [address] LIPIDon 12-14-2023 Cholesterol [Mass/Vol] 212 mg/dL High 0-200 [facility] ([place] Comment on above: Result Comment: Chol esterol Reference Interval: Less than 200 Desirable 200-239 Borderline high risk 240 and above High risk Performed By: #### A FRANC, LIPID, ADIFF, CBC, TSH, CMP, MORPH, GFR, PSA #### [address] [address] Cholesterol in HDL [Mass/Vol] 74 mg/dL High 40-60 [facility] ([place] Comment on above: Performed By: #### A FRANC, LIPID, ADIFF, CBC, TSH, CMP, MORPH, GFR, PSA #### [address] [address] Cholesterol in LDL [Mass/Vol] 120 mg/dL Normal 0-130 [facility] ([place] Comment on above: Performed By: #### A FRANC, LIPID, ADIFF, CBC, TSH, CMP, MORPH, GFR, PSA #### [address] [address] Triglyceride [Mass/Vol] 88 mg/dL Normal 0-150 A [facility] ([place] Comment on above: Result Comment: Trig lyceride Reference Interval: Less than 150 Normal 150-199 Borderline high risk 200-499 High risk 500 or higher Very high risk Performed By: #### A FRANC, LIPID, ADIFF, CBC, TSH, CMP, MORPH, GFR, PSA #### [address] [address] PSAon 12-14-2023 Prostate Specific Antigen 1.30 ng/mL Normal 0.00-4.00 [facility] ([place] Comment on above: Performed By: #### A FRANC, LIPID, ADIFF, CBC, TSH, CMP, MORPH, GFR, PSA #### [address] [place] [address] [place], [place] [address] TSHon 12-14-2023 TSH Qn 0.75 m[IU]/L Normal 0.36-3.74 [facility] ([place] Comment on above: Performed By: #### A FRANC, LIPID, ADIFF, CBC, TSH, CMP, MORPH, GFR, PSA #### [address] [place], [place] [address] Absolute lymphocyte countOrd ered By: Breannmk Graham on 11-29-2023 Lymphocytes Auto (Unsp spec) [#/Vol] 1.00 10*3/uL 0.83-4.51 [facility] Automated lymphocyte count a s percentage of total leukocytesOrdered By: Breann Graham on 11-29-2023 Lymphocytes/100 WBC Auto (Unsp spec) 15.0 % 19-41 [facility] Basophil percentageOrdered B y: Breann Graham on 11-29-2023 Basophils/100 WBC (Bld) 1.4 % 0-1 [facility] [facility] Chloride [Moles/Vol] 112 mmol/L 98-107 [facility] Eosinophils/100 WBC (Bld) 5.6 % 0-5 [facility] Glucose [Mass/Vol] 110 mg/dL 74-106 [facility] Comment on above: Fasting Glucose resu lt from 100 to 125 mg/dL suggests IMPAIRED HOMEOSTASIS per A.D.A. criteria. Hemoglobin (Bld) [Mass/Vol] 8.3 g/dL 13.0-16.5 [facility] Monocytes/100 WBC (Bld) 11.3 % 0-10 [facility] Neutrophils (Bld) [#/Vol] 4.4 10*3/uL 2.0-7.7 [facility] Neutrophils/100 WBC (Bld) 66.1 % 47-70 [facility] Potassium [Moles/Vol] 4.2 mmol/L 3.5-5.1 [facility] Sodium [Moles/Vol] 137 mmol/L 136-145 [facility] WBC (Bld) [#/Vol] 6.7 10*3/uL 4.4-11.0 [facility] Determination of erythrocyte mean corpuscular volume (MCV)Ordered By: Breann Graham on 11-29-2023 MCV (RBC) [Entitic vol] 72.8 fL 80-94 [facility] Erythrocyte distribution wid th ratioOrdered By: Breann Graham on 11-29-2023 Erythrocyte distribution width (RBC) [Ratio] 26.9 % 11.6-14.6 [facility] Erythrocyte distribution wid th standard deviationOrdered By: Breann Graham on 11-29-2023 Erythrocyte distribution width (RBC) [Entitic vol] 67.7 fL 35.1-43.9 [facility] Hematocrit Auto (Bld) [Volum e fraction]Ordered By: Breann Graham on 11-29-2023 Hematocrit (Bld) [Volume fraction] 28.1 % 40-54 [facility] Immature granulocytes/100 WB C Auto (Bld)Ordered By: Breann Graham on 11-29-2023 Immature granulocytes/100 WBC (Bld) 0.600 % 0.0-0.9 [facility] Comment on above: IG% - Immature Granu locytes (promyelocytes, myelocytes and metamyelocytes) > 1% indicates that a LEFT SHIFT is Present. Laboratory - Chemistry and C hemistry - challengeOrdered By: Breann Graham on 11-29-2023 CO2 [Moles/Vol] 24.0 mmol/L 21.0-32.0 [facility] Urea nitrogen/Creatinine [Mass ratio] 20.0 mg/mg 10-20 [facility] Laboratory - Hematology and Cell countsOrdered By: Breann Graham on 11-29-2023 Anisocytosis Ql (Bld) 2+ [facility] MCH (RBC) [Entitic mass] 21.5 pg 27.0-32.0 [facility] MCHC (RBC) [Mass/Vol] 29.5 g/dL 32-36 [facility] Nucleated RBC/100 WBC (Bld) [Ratio] 0 % 0-5 [facility] Platelets (Bld) [#/Vol] 326 10*3/uL 150-450 [facility] No Panel InformationOrdered By: Breann Graham on 11-29-2023 Estimated Creatinine Clearance Calc 85.51 ml/min [facility] Estimated GFR (MDRD) Amer 116 mL/min >60 [facility] Comment on above: GFR Calc Estimated GFR (MDRD) Non-Af Amer 96 mL/min >60 [facility] Comment on above: Non- GFR Calc Platelet mean volume Alejandro-Ec ker (Bld) [Entitic vol]Ordered By: Breann Graham on 11-29-2023 Platelet mean volume (Bld) [Entitic vol] 9.6 fL 6.2-12.0 [facility] RBC Auto (Bld) [#/Vol]Ordere d By: Breann Graham on 11-29-2023 RBC (Bld) [#/Vol] 3.86 10*6/uL 4.6-6.2 [facility] Serum or plasma calcium melinda urement (mass/volume)Ordered By: Breann Graham on 11-29-2023 Calcium [Mass/Vol] 8.6 mg/dL 8.5-10.1 [facility] Serum or plasma creatinine m easurement (mass/volume)Ordered By: Breann Graham on 11-29-2023 Creatinine [Mass/Vol] 0.85 mg/dL 0.70-1.30 [facility] Comment on above: The validity of the calculated GFR & GFRAA in patients over 70 years has not been determined. Clinical correlation is essential. Serum or plasma urea nitroge n measurement (mass/volume)Ordered By: Breann Graham on 11-29-2023 Urea nitrogen [Mass/Vol] 17 mg/dL 7-18 [facility] Thin prep Papanicolaou smear with manual screeningOrdered By: Breann Graham on 11-29-2023 Thin prep Papanicolaou smear with manual screening 1 5-15 [facility] Hypochromatic red blood cell detectionOrdered By: Breann Graham on 11-28-2023 Hypochromia Ql (Bld) 1+ [facility] Activated partial thrombopla stin time (aPTT) in platelet poor plasma by coagulation aOrdered By: Freddie Acevedo on 11-27-2023 aPTT Coag (PPP) [Time] 29.1 s 24.1-36.2 [facility] normalized rat io (INR) calculationOrdered By: Ervin Anderson on 11-27-2023 INR Coag (PPP) [Relative time] 1.1 {INR} [facility] Laboratory - CoagulationOrde red By: Ervin Anderson on 11-27-2023 PT Coag (PPP) [Time] 13.8 s 11.7-14.9 [facility] Basophil percentageOrdered B y: Susana Durham on 11-26-2023 Basophil percentage 10-25 SEEN /hpf 0-5 [facility] Bilirubin Test strip Ql (U)O rdered By: Susana Durham on 11-26-2023 Bilirubin Ql (U) Negative Negative [facility] Blood schistocytes detection by light microscopyOrdered By: Susana Durham on 11-26-2023 Schistocytes LM Ql (Bld) 2+ [facility] Iron measurement (mass/mass) Ordered By: Ervin Anderson on 11-26-2023 Iron (Unsp spec) [Mass/Mass] 11 ug/dL 65-175 [facility] Ketones Test strip Ql (U)Ord ered By: Susana Durham on 11-26-2023 Ketones Ql (U) 5 mg/dl Negative [facility] Laboratory - Chemistry and C hemistry - challengeOrdered By: Ervin Anderson on 11-26-2023 Cobalamin (Vitamin B12) [Mass/Vol] 407 pg/mL 211-911 [facility] Ferritin [Mass/Vol] 2 ng/mL 26-388 [facility] Mucus LM Ql (Urine sed)Order ed By: Susana Durham on 11-26-2023 Mucus Ql (Urine sed) 0 SEEN /hpf [facility] Nitrite Test strip Ql (U)Ord ered By: Susana Durham on 11-26-2023 Nitrite Ql (U) Positive Negative [facility] No Panel InformationOrdered By: Susana Durham on 11-26-2023 Urine RBC 50-100 SEEN /hpf 0-5 [facility] No Panel InformationOrdered By: Ervin Anderson on 11-26-2023 Folate 6.30 ng/mL 3.1-55.4 [facility] Total Iron Binding Capacity 455 ug/dL 250-450 [facility] Ovalocyte detectionOrdered B y: Susana Durham on 11-26-2023 Ovalocytes LM Ql (Bld) 1+ [facility] Protein Test strip Ql (U)Ord ered By: Susana Durham on 11-26-2023 Protein Ql (U) 500 mg/dl Negative [facility] Review by pathologistOrdered By: Susana Durham on 11-26-2023 Pathologist review Morgan (Unsp spec) [Interp] Reviewed [facility] Comment on above: Previous reported re sult: March naz Edited by: RGOBRIANA on 11/28/23:1426Severe Microcytic anemia.Clinical correlation necessary.Ward Drake M.D. 11/28/23 AMENDED REPORT 11/28/231425 PATH REV previously reported as: March naz Serum or plasma iron saturat ion measurement (mass fraction)Ordered By: Ervin Anderson on 11-26-2023 Iron saturation [Mass fraction] 2.4 % 15.0-55.0 [facility] Squamous epithelial cells de tection in urine sediment by light microscopyOrdered By: Susana Durham on 11-26-2023 Epithelial cells.squamous LM Ql (Urine sed) 0 SEEN /hpf 0-5 [facility] Teardrop cell detectionOrder ed By: Susana Durham on 11-26-2023 Dacrocytes LM Ql (Bld) 1+ [facility] Urine blood detectionOrdered By: Susana Durham on 11-26-2023 RBC Ql (U) 250 /ul Negative [facility] Urine clarityOrdered By: Deidra Durham on 11-26-2023 Clarity (U) Turbid Clear [facility] Urine color determinationOrd ered By: Susana Durham on 11-26-2023 Color (U) Red Yellow [facility] Urine glucose detectionOrder ed By: Susana Durham on 11-26-2023 Glucose Ql (U) Normal mg/dl Normal [facility] Urine leukocyte esterase det ection by dipstickOrdered By: Susana Durham on 11-26-2023 Leukocyte esterase Test strip Ql (U) 100 /ul Negative [facility] Urine pHOrdered By: Susana tucker on 11-26-2023 pH (U) 6.5 [pH] 5.0 - 8.0 [facility] Urine sediment bacteria coun t by microscopy (number/high power field)Ordered By: Susana Durham on 11-26-2023 Bacteria LM.HPF (Urine sed) [#/Area] 2 /[HPF] None Seen [facility] Urine specific gravity measu rementOrdered By: Susana Durham on 11-26-2023 Specific gravity (U) [Rel density] 1.015 1.002-1.030 [facility] Urine urobilinogen measureme ntOrdered By: Susana Durham on 11-26-2023 Urobilinogen Ql (U) 1 mg/dl Normal [facility] Basophil percentageOrdered B y: Freddie Acevedo on 11-06-2023 Creatinine [Mass/Vol] 1.4 mg/dL 0.70-1.30 [facility] Laboratory - Chemistry and C hemistry - challengeOrdered By: Freddie Acevedo on 11-06-2023 GFR/1.73 sq M.predicted among non-blacks MDRD (S/P/Bld) [Vol rate/Area] 52.0000 mL/min/{1.73_m2} >60 [facility] .Urinalysis Microscopic (AO) on 10-29-2023 UA Amorphus 1+ /hpf Normal [facility] [place] Comment on above: Performed By: #### A FRANC, LIPID, ADIFF, CBC, TSH, CMP, MORPH, GFR, PSA #### [address] [address] UA Bacteria 1+ /hpf Abnormal [facility] ([place] Comment on above: Performed By: #### A FRANC, LIPID, ADIFF, CBC, TSH, CMP, MORPH, GFR, PSA #### [id number] [place], [place] [address] UA RBC LOADED Abnormal None Seen [facility] [place] Comment on above: Performed By: #### A FRANC, LIPID, ADIFF, CBC, TSH, CMP, MORPH, GFR, PSA #### [id number] [place], [place] [address] UA Squam Epithelial None Seen Normal None Seen [facility] ([place] Comment on above: Performed By: #### A FRANC, LIPID, ADIFF, CBC, TSH, CMP, MORPH, GFR, PSA #### [address] [place], [place] [address] UA WBC 0-5 Abnormal None Seen [facility] ([place] Comment on above: Performed By: #### A FRANC, LIPID, ADIFF, CBC, TSH, CMP, MORPH, GFR, PSA #### [facility] [address] [place], [place] [address] LABORATORYOrdered By: Sanjuana Espinosa on 10-29-2023 Appearance (U) Slightly Cloudy *ABN* (10/29/23 5:08 [...] SS UAon 10-29-2023 Color (U) Brown Abnormal [facility] ([place] Comment on above: Performed By: #### A FRANC, LIPID, ADIFF, CBC, TSH, CMP, MORPH, GFR, PSA #### [address] [address] Glucose (U) [Mass/Vol] Negative Normal Negative [facility] ([place]) Comment on above: Performed By: #### A FRANC, LIPID, ADIFF, CBC, TSH, CMP, MORPH, GFR, PSA #### [address] [address] Ketones Ql (U) Negative Normal Negative [facility] ([place] Comment on above: Performed By: #### A FRANC, LIPID, ADIFF, CBC, TSH, CMP, MORPH, GFR, PSA #### [address] [address] UA Appear Slightly Cloudy Abnormal Clear [facility] ([place] Comment on above: Performed By: #### A FRANC, LIPID, ADIFF, CBC, TSH, CMP, MORPH, GFR, PSA #### [address] [address] UA Bili Small Abnormal Negative [facility] ([place] Comment on above: Performed By: #### A FRANC, LIPID, ADIFF, CBC, TSH, CMP, MORPH, GFR, PSA #### [address] [address] UA Blood Moderate Abnormal Negative [facility] ([place] Comment on above: Performed By: #### A FRANC, LIPID, ADIFF, CBC, TSH, CMP, MORPH, GFR, PSA #### [address] [address] UA Leuk Est Negative Normal Negative [facility] ([place] Comment on above: Performed By: #### A FRANC, LIPID, ADIFF, CBC, TSH, CMP, MORPH, GFR, PSA #### [place] [address] UA Nitrite Positive Abnormal Negative [facility] ([place] Comment on above: Performed By: #### A FRANC, LIPID, ADIFF, CBC, TSH, CMP, MORPH, GFR, PSA #### [place] [address] UA pH 6.5 Normal 5.0 - 8.0 [facility] ([place] Comment on above: Performed By: #### A FRANC, LIPID, ADIFF, CBC, TSH, CMP, MORPH, GFR, PSA #### [place] [address] UA Protein 100 mg/dL Abnormal Negative [facility]) Comment on above: Performed By: #### A FRANC, LIPID, ADIFF, CBC, TSH, CMP, MORPH, GFR, PSA #### [place] [address] UA Spec Grav >=1.030 Abnormal 1.015-1.025 [facility]) Comment on above: Performed By: #### A FRANC, LIPID, ADIFF, CBC, TSH, CMP, MORPH, GFR, PSA #### [place] [address] UA Specimen Type Catheter Normal [facility] ([place] Comment on above: Performed By: #### A FRANC, LIPID, ADIFF, CBC, TSH, CMP, MORPH, GFR, PSA #### [place] [address] UA Urobilinogen 0.2 E.U./dL Normal 0.2-1.0 [facility]) Comment on above: Performed By: #### A FRANC, LIPID, ADIFF, CBC, TSH, CMP, MORPH, GFR, PSA #### [place] [address] LABORATORYOrdered By: Adair Michel on 03-30-2022 Albumin [...] Time Vital Sign Value Performing Clinician Facility 08-31-2025 14:36-0400 Body temperature 98.2 [degF] Celina Baltes [employer] Work Phone: [facility] 08-31-2025 14:36-0400 Diastolic blood pressure 113 mm[Hg] Celina Baltes [employer] Work Phone: [facility] 08-31-2025 14:36-0400 Heart rate 89 /min Celina Baltes [employer] Work Phone: [facility] 08-31-2025 14:36-0400 Respiratory rate 18 /min Celina Baltes [employer] Work Phone: [facility] 08-31-2025 14:36-0400 SaO2% (BldA) [Mass fraction] 97 % Celina Baltes [employer] Work Phone: [facility] 08-31-2025 14:36-0400 Systolic blood pressure 171 mm[Hg] Celina Baltes [employer] Work Phone: [facility] 08-31-2025 12:29-0400 Body mass index (BMI) [Ratio] 27.8 kg/m2 Celina Baltes [employer] Work Phone: [facility] 08-31-2025 12:29-0400 Body weight 78.3 kg Celina Baltes [employer] Work Phone: [facility] 08-31-2025 10:47-0400 Body height 167.64 cm Celina Baltes [employer] Work Phone: [facility] 08-19-2025 18:57-0400 Body temperature 97.8 [degF] Celina Baltes [employer] Work Phone: [facility] 08-19-2025 18:57-0400 Diastolic blood pressure 78 mm[Hg] Celina Baltes [employer] Work Phone: [facility] 08-19-2025 18:57-0400 Heart rate 91 /min Celina Baltes [employer] Work Phone: [facility] 08-19-2025 18:57-0400 Respiratory rate 16 /min Celina Baltes [employer] Work Phone: [facility] 08-19-2025 18:57-0400 SaO2% (BldA) [Mass fraction] 99 % Celina Baltes [employer] Work Phone: [facility] 08-19-2025 18:57-0400 Systolic blood pressure 141 mm[Hg] Celina Baltes [employer] Work Phone: [facility] 08-19-2025 14:03-0400 Body mass index (BMI) [Ratio] 27.3 kg/m2 Celina Baltes [employer] Work Phone: [facility] 08-19-2025 14:03-0400 Body weight 77 kg Celina Baltes [employer] Work Phone: [facility] 05-02-2025 17:24-0400 Body temperature 97.8 [degF] Celina Baltes [employer] Work Phone: [facility] 05-02-2025 17:24-0400 Diastolic blood pressure 88 mm[Hg] Celina Baltes [employer] Work Phone: [facility] 05-02-2025 17:24-0400 Heart rate 91 /min Celina Baltes [employer] Work Phone: [facility] 05-02-2025 17:24-0400 Respiratory rate 16 /min Celina Baltes [employer] Work Phone: [facility] 05-02-2025 17:24-0400 SaO2% (BldA) [Mass fraction] 99 % Celina Baltes [employer] Work Phone: [facility] 05-02-2025 17:24-0400 Systolic blood pressure 146 mm[Hg] Celina Baltes [employer] Work Phone: [facility] 05-02-2025 16:27-0400 Body mass index (BMI) [Ratio] 27.9 kg/m2 Celina Baltes [employer] Work Phone: [facility] 05-02-2025 16:27-0400 Body weight 78.6 kg Celina Baltes [employer] Work Phone: [facility] 05-02-2025 15:53-0400 Body height 167.64 cm Celina Baltes [employer] Work Phone: [facility] 11-29-2023 15:20-0500 Body temperature 98.5 [degF] [employer] Celina Baltes [employer] Work Phone: [facility] 11-29-2023 15:20-0500 Diastolic blood pressure 90 mm[Hg] [employer] Celina Baltes [employer] Work Phone: [facility] 11-29-2023 15:20-0500 Heart rate 87 /min [employer] Celina Baltes [employer] Work Phone: [facility] 11-29-2023 15:20-0500 Respiratory rate 18 /min [employer] Celina Baltes [employer] Work Phone: [facility] 11-29-2023 15:20-0500 SaO2% (BldA) [Mass fraction] 96 % [employer] Celina Baltes [employer] Work Phone: [facility] 11-29-2023 15:20-0500 Systolic blood pressure 114 mm[Hg] [employer] Celina Baltes [employer] Work Phone: [facility] 11-28-2023 07:21-0500 Inhaled oxygen flow rate 2 L/min [employer] Celina Baltes [employer] Work Phone: [facility] 11-27-2023 01:38-0500 Body height 167.64 cm [employer] Celina Baltes [employer] Work Phone: [facility] 11-27-2023 01:38-0500 Body mass index (BMI) [Ratio] 28.8 kg/m2 [employer] Celina Baltes [employer] Work Phone: [facility] 11-27-2023 01:38-0500 Body weight 81.1 kg [employer] Celina Cosmetes [employer] Work Phone: [facility] 10-29-2023 18:50-0500 Diastolic Blood Pressure Non-Invasive 82 mm[Hg] DR TROY LAM DO [facility] 10-29-2023 18:50-0500 Heart rate 63 /min DR TROY LAM DO [facility] 10-29-2023 18:50-0500 Reason For Taking VItal Signs DR TROY LAM DO [facility] 10-29-2023 18:50-0500 Respiratory rate 18 /min DR TROY LAM DO [facility] 10-29-2023 18:50-0500 Systolic Blood Pressure Non-Invasive 129 mm[Hg] DR TROY LAM DO [facility] 10-29-2023 16:45-0500 Body temperature 98.42 [degF] DR TROY LAM DO [facility] 10-29-2023 16:45-0500 Diastolic Blood Pressure Non-Invasive 80 mm[Hg] DR TROY LAM DO [facility] 10-29-2023 16:45-0500 Heart rate 68 /min DR TROY LAM DO [facility] 10-29-2023 16:45-0500 Respiratory rate 18 /min DR TROY LAM DO [facility] 10-29-2023 16:45-0500 Systolic Blood Pressure Non-Invasive 132 mm[Hg] DR TROY LAM DO [facility] Encounters Encounter Date Encounter Type Care Provider Facility Start: 09-09-2025 End: 09-15-2025 Evaluation and management of inpatient CLAUS BOTELLO Facility:[id number] Start: 09-07-2025 Encounter for other preprocedural examination [facility] Start: 09-07-2025 End: 09-07-2025 ambulatory CELINA DELGADO Facility:[id number] Start: 09-03-2025 End: 09-03-2025 ambulatory AMARJIT BOTELLO MD Facility:[facility] [place] Start: 09-03-2025 Encounter for preprocedural laboratory examination AMARJIT BOTELLO MD [facility] Start: 09-03-2025 End: 09-03-2025 Patient encounter procedure AMARJIT BOTELLO MD [facility] Start: 08-31-2025 End: 08-31-2025 Emergency department patient visit Vahe Paz Facility:[facility] Start: 08-19-2025 End: 08-19-2025 Emergency department patient visit Dr. Victoriano Boykin MD -Emergency Department Work Phone: Start: 08-12-2025 ambulatory CELINA DELGADO IMPLEMENTATION COORDINATOR-C[employer]OM [employer] BUILDER Fa cility:[facility] Start: 07-21-2025 End: 07-21-2025 ambulatory SUSANA CASTANO DO Facility:[facility] [place] Start: 07-21-2025 End: 07-21-2025 Patient encounter procedure SUSANA Jade CASTANO DO [facility] Start: 05-02-2025 End: 05-02-2025 Emergency department patient visit Celina Delgado [employer] Work Phone: -Emergency Department Work Phone: Start: 10-06-2024 End: 10-09-2024 Evaluation and management of inpatient Dennis Little Facility:[facility] Start: 02-06-2024 ambulatory CELINA DELGADO IMPLEMENTATION COORDINATOR-CUSTOM CAR BUILDER Fa cility:[facility] Start: 12-14-2023 End: 12-19-2023 ambulatory CELINA DELGADO IMPLEMENTATION COORDINATOR-CUSTOM CAR BUILDER Facility:[facility] Start: 11-29-2023 Non-patient / Non-visit [employer] R servando Baltes [employer] Work Phone: [facility] Work Phone: Start: 11-28-2023 Non-patient / Non-visit [employer] R servando Baltes [employer] Work Phone: [facility] Work Phone: Start: 11-27-2023 Non-patient / Non-visit [employer] R servando Baltes [employer] Work Phone: [facility] Work Phone: Start: 11-27-2023 End: 11-27-2023 Non-patient / Non-visit [employer] Celina Baltes [employer] Work Phone: [facility] Work Phone: Start: 11-26-2023 Non-patient / Non-visit [employer] R servando Baltes [employer] Work Phone: [facility] Work Phone: Start: 11-26-2023 End: 11-29-2023 Evaluation and management of inpatient [employer] Celina Baltes [employer] Work Phone: [facility]-Progressive Care Unit Work Phone: Start: 11-26-2023 Non-patient / Non-visit [employer] Rekha Delgado [employer] Work Phone: [facility] Start: 11-06-2023 End: 11-06-2023 ambulatory [facility] Work Phone: Start: 11-06-2023 End: 11-06-2023 Patient encounter procedure [facility]-Cat Scan, [facility] Work Phone: Start: 11-02-2023 End: 11-02-2023 Emergency department patient visit CELINA DELGADO APRN-KIRBY Facility:[facility] Start: 10-29-2023 End: 10-29-2023 Emergency department patient visit CELINA DELGADO APRN-CUSTOM CAR BUILDER Facility:[facility] Start: 10-29-2023 End: 10-29-2023 Emergency department patient visit DR TROY LAM DO [facility] Start: 04-11-2022 End: 04-11-2022 Patient encounter procedure [facility]-Laboratory, Specimen Start: 03-30-2022 End: 03-30-2022 Patient encounter procedure CELINA DELGADO IMPLEMENTATION COORDINATOR-CUSTOM CAR BUILDER [facility] Start: 01-05-2022 End: 01-05-2022 Patient encounter procedure [facility]-Laboratory, Specimen Procedures Date Procedure Procedure Detail Performing Clinician Start: 08-19-2025 Radiologic examinati on eye detect foreign body Celina Delgado [employer] Work Phone: Start: 08-19-2025 MRI of lumbar spine Rya dali Delgado [employer] Work Phone: Start: 05-02-2025 Plain radiography of pelvis Celina Delgado [employer] Work Phone: Start: 05-02-2025 Plain X-ray of shoulder Celina Delgado [employer] Work Phone: Start: 11-27-2023 Cysto,Transurethal R esec Bladder,[employer] (Not Applicable) [employer] Celina Delgado [employer] Work Phone: Start: 11-06-2023 Computed tomography of abdomen and pelvis with contrast Finger structure (aroldo dy structure) CELINA DELGADO IMPLEMENTATION COORDINATOR-CUSTOM CAR BU[employer]DER Comment on above: partially removed le ft index finger Herniated structure (morphologic abnormality) CELINA DELGADO IMPLEMENTATION COORDINATOR-CUSTOM CAR BUILDER Comment on above: x2 Vasectomy CELINA DELGADO APR N-CUSTOM CAR BUILDER Plan of Treatment Date Care Activity Detail Author Start: 08-31-2025 [facility] Start: 08-31-2025 End: 08-31-2025 Emergency department patient visit [facility] Work Phone: Start: 08-19-2025 End: 08-19-2025 [facility] Start: 05-02-2025 [facility] Start: 12-05-2023 Blood chemistry [facility] Start: 12-04-2023 Blood chemistry [facility] Start: 12-03-2023 Blood chemistry [facility] Start: 12-02-2023 Blood chemistry [facility] Start: 12-01-2023 Blood chemistry [facility] Start: 11-30-2023 Blood chemistry [facility] Start: 11-29-2023 Patient discharge [facility] Start: 11-28-2023 Application of elast ic bandage [facility] Start: 11-28-2023 [facility] Start: 11-27-2023 End: 11-27-2023 Administration of blood product [facility] Start: 11-26-2023 Application of inter mittent pneumatic compression device [facility] Start: 11-26-2023 End: 11-26-2023 Following clinical pathway protocol [facility] Start: 11-26-2023 Ambulation without limitation [facility] Start: 11-26-2023 Assessment of risk o f venous thromboembolism [facility] Start: 11-26-2023 Insertion of cathete r into peripheral vein [facility] Start: 11-26-2023 Oxygen therapy [facility] Start: 11-26-2023 Providing care accor ding to standard [facility] Start: 11-26-2023 [facility] Start: 11-26-2023 Referral to occupati onal therapist [facility] Start: 11-26-2023 Referral to service [facility] Start: 11-26-2023 Verification routine [facility] Start: 11-26-2023 Urine culture Urine Culture [facility] Start: 11-26-2023 Admission procedure [facility] Start: 11-26-2023 Consultation [facility] Start: 11-26-2023 End: 11-27-2023 [facility] Start: 11-26-2023 Administration of bl ood product [facility] Anion gap measurement [facility] Anion gap measurement [facility] BUN/Creatinine ratio [facility] BUN/Creatinine ratio [facility] Calcium [Mass/volume ] in Serum or Plasma [facility] Calcium [Mass/volume ] in Serum or Plasma [facility] Carbon dioxide, tota l [Moles/volume] in Serum or Plasma [facility] Carbon dioxide, tota l [Moles/volume] in Serum or Plasma [facility] Chloride [Moles/volu me] in Serum or Plasma [facility] Chloride [Moles/volu me] in Serum or Plasma [facility] Creatinine [Moles/vo lume] in Serum or Plasma [facility] Creatinine [Moles/vo lume] in Serum or Plasma [facility] Erythrocyte mean corpuscular volume determination [facility] Erythrocyte mean corpuscular volume determination [facility] Erythrocyte mean corpuscular volume determination [facility] Erythrocyte mean corpuscular volume determination [facility] Erythrocyte mean corpuscular volume determination [facility] Erythrocyte mean corpuscular volume determination [facility] Glucose [Mass/volume ] in Serum or Plasma [facility] Glucose [Mass/volume ] in Serum or Plasma [facility] Hematocrit [Volume Fraction] of Blood [facility] Hematocrit [Volume Fraction] of Blood [facility] Hematocrit [Volume Fraction] of Blood [facility] Hematocrit [Volume Fraction] of Blood [facility] Hematocrit [Volume Fraction] of Blood [facility] Hematocrit [Volume Fraction] of Blood [facility] Hemoglobin [Mass/vol ume] in Blood [facility] Hemoglobin [Mass/vol ume] in Blood [facility] Hemoglobin [Mass/vol ume] in Blood [facility] Hemoglobin [Mass/vol ume] in Blood [facility] Hemoglobin [Mass/vol ume] in Blood [facility] Hemoglobin [Mass/vol ume] in Blood [facility] Leukocytes [#/volume ] in Blood [facility] Leukocytes [#/volume ] in Blood [facility] Leukocytes [#/volume ] in Blood [facility] Leukocytes [#/volume ] in Blood [facility] Leukocytes [#/volume ] in Blood [facility] Leukocytes [#/volume ] in Blood [facility] Mean corpuscular hem oglobin concentration determination [facility] Mean corpuscular hem oglobin concentration determination [facility] Mean corpuscular hem oglobin concentration determination [facility] Mean corpuscular hem oglobin concentration determination [facility] Mean corpuscular hem oglobin concentration determination [facility] Mean corpuscular hem oglobin concentration determination [facility] Mean corpuscular hem oglobin determination [facility] Mean corpuscular hem oglobin determination [facility] Mean corpuscular hem oglobin determination [facility] Mean corpuscular hem oglobin determination [facility] Mean corpuscular hem oglobin determination [facility] Mean corpuscular hem oglobin determination [facility] Measurement of renal function [facility] Measurement of renal function [facility] Neutrophil count [facility] Neutrophil count [facility] Neutrophil count [facility] Neutrophil count [facility] Neutrophil count [facility] Neutrophil count [facility] Neutrophil percent differential count [facility] Neutrophil percent differential count [facility] Neutrophil percent differential count [facility] Neutrophil percent differential count [facility] Neutrophil percent differential count [facility] Neutrophil percent differential count [facility] Patient Education [facility] Work Phone: Patient referral [facility] Work Phone: Platelets [#/volume] in Blood [facility] Platelets [#/volume] in Blood [facility] Platelets [#/volume] in Blood [facility] Platelets [#/volume] in Blood [facility] Platelets [#/volume] in Blood [facility] Platelets [#/volume] in Blood [facility] Potassium [Moles/vol ume] in Serum or Plasma [facility] Potassium [Moles/vol ume] in Serum or Plasma [facility] Red blood cell count [facility] Red blood cell count [facility] Red blood cell count [facility] Red blood cell count [facility] Red blood cell count [facility] Red blood cell count [facility] Red cell distributio n width determination [facility] Red cell distributio n width determination [facility] Red cell distributio n width determination [facility] Red cell distributio n width determination [facility] Red cell distributio n width determination [facility] Red cell distributio n width determination [facility] Sodium [Moles/volume ] in Serum or Plasma [facility] Sodium [Moles/volume ] in Serum or Plasma [facility] Urea nitrogen [Mass/ volume] in Serum or Plasma [facility] Urea nitrogen [Mass/ volume] in Serum or Plasma [facility] Immunizations Immunization Date Immunization Notes Care Provider [facility] 02-04-2025 Pneumococcal conjuga te PCV20, polysaccharide FOO050 conjugate, adjuvant, PF; Translations: [Prevnar 20] SUSANA CASTANO DO [facility] 10-07-2024 influenza virus vacc ine, unspecified formulation SUSANA CASTANO DO [facility] 10-07-2024 influenza, high dose seasonal, preservative-free Celina Baltes [employer] Work Phone: [facility] 11-28-2023 Influenza High-Dose Quadrivalent [employer] Celina Baltes [employer] Work Phone: [facility] 11-28-2023 influenza virus vacc ine, unspecified formulation SUSANA CASTANO DO [facility] 07-28-2021 SARS-CoV-2 mRNA (tozinameran) vaccine CELINA DELGADO IMPLEMENTATION COORDINATOR-CUSTOM CAR BUILDER [facility] 06-30-2021 SARS-CoV-2 mRNA (tozinameran) vaccine CELINA DELGADO IMPLEMENTATION COORDINATOR-CUSTOM CAR BUILDER [facility] Comment on above: Result Comment: 2021: TPV60 10-31-2020 influenza, injectabl e, quadrivalent, preservative free CELINA DELGADO IMPLEMENTATION COORDINATOR-CUSTOM CAR BUILDER [facility] 03-01-2017 tetanus toxoid, redu maria d diphtheria toxoid, and acellular pertussis vaccine, adsorbed CELINA DELGADO IMPLEMENTATION COORDINATOR-CUSTOM CAR BUILDER [facility] Payers Date Payer Category Payer Unknown [id number] 2025 Private Health Insurance [id number] 2025 Unknown [id number] 2025 Unknown [id number] 2024 Self-pay [id number] 2023 Private Health Insurance [id number] Private Health Insurance [id number] 1957 Unknown [id number] 2.16.8 [id number] 1957 Unknown [id number] 2.16.8 [id number] 1957 Unknown [id number] 2.16.8 [id number] 1957 Unknown [id number] 2.16.8 [id number] 1957 Unknown [id number] 2.16. [id number] 1957 Unknown [id number] 2.16. [id number] 1957 Unknown [id number] 2.16. [id number] Medicare [id number] Unknown [id number] Unknown [id number] 2.16.8 [id number] Unknown [id number] 2.16.8 [id number] Unknown [id number] 2.16.8 [id number] Unknown [id number] 2.16.8 [id number] Social History Date Type Detail Facility Start: 03-30-2022 End: 10-29-2023 Tobacco smoking status Ex-smoker (finding) [facility] Start: 1955 Sex Assigned At Male A [facility] Start: 05-26-2021 End: 11-26-2023 Tobacco smoking status NHIS Unknown if ever smoked [facility] Start: 05-02-2025 End: 08-31-2025 Tobacco smoking status NHIS Current Light tobacco smoker [facility] Start: 02-04-2025 End: 07-29-2025 Tobacco smoking status Smokes tobacco daily (finding) [facility] Comment on above: a little mini occ little cigars Quit daily use at ag e 64. Sexual Orientation [facility] raiza [facility] Start: 08-25-2021 Sex Male (finding) [facility] Sex Male [facility] Goals Date Patient Goal Desired Activity /State Functional Status Date Assessment Result Facility 11-29-2023 Functional status Ambulates [facility] Work Phone: 10-29-2023 Functional Status Standard Safet y ID band on, Call device within reach, Bed in low position, Wheels locked, Bedside Cart Locked, Visitor at bedside, Safety level maintained [facility] 10-29-2023 Functional Status [facility] Mental Status Date Assessment Result Facility 05-02-2025 Cognitive function Level Of Cons ciousness Awake;Alert;Appropriate;Follow s Commands [facility] Work Phone: 11-29-2023 Cognitive function Voice/Name [facility] Work Phone: 10-29-2023 Mental Status Orientation Oriented x 4 [facility] 10-29-2023 Mental Status [facility] Clinical Notes 10-29-2023 to 09-15-2025 Note Date & Type Note Facility 09-15-2025 Note HNO ID: [id number] Author: DONIS HAYES RN Service: Nursing Author Type: Registered Nurse Type: Nursing Progress Note Filed: 09/15/2025 19:48 Note Text: 09/15/2025 1947 pt d/c home, IV removed, arrived to transport pt home. [facility] 09-15-2025 Note HNO ID: [id number] Author: CLAUS BOTELLO MD Service: Orthopaedic Surgery Author Type: Physician Type: Progress Notes Filed: 09/15/2025 06:56 Note Text: Orthopedic spine progress note Denies any chest pain, shortness of breath, fever, or chills. Left leg pain still much better. Vitals: Afebrile. Vital signs stable. Exam: Neuroexam stable. HANDH: No new labs. Drain: 90/50/85 Assessment: 1. Postop day #2 revision L3-4 decompression, L3-L5 fusion 2. Postop day #6 L3 and superior L4 laminectomy with discectomy Plan: 1. Drain: Clamp drain x7 hours, then to gravity x1 hour. Repeat cycle x2. Ultimately leave drain to gravity. May DC drain if 30 cc or less in any shift. 2. Continue current care 3. Discharge planning: Therapy recommending home at discharge. Follow drain output. Possibly home today if able to get drain out. [facility] 09-14-2025 Note HNO ID: [id number] Author: CLAUS BOTELLO MD Service: Orthopaedic Surgery Author Type: Physician Type: Progress Notes Filed: 09/14/2025 07:35 Note Text: Orthopedic spine progress note Sitting at bedside and eating breakfast this morning. This is the first day that I have seen him feel comfortable. He complains of back pain. He states his left leg pain is completely gone. He is passing flatus. Vitals: Afebrile. Vital signs stable. Exam: Neuroexam is stable. Very mild weakness in his left hip flexion and knee extension HANDH: No new labs. Drain: 30/110/100 Assessment: 1. Postop day #1 revision L3-4 decompression, L3-L5 fusion 2. Postop day #5 L3 and superior 4 laminectomy with discectomy Plan: 1. Drain: Clamp drain x6 hours, then to gravity x2 hours. Repeat cycle x2. Ultimately leave drain to gravity. 2. Pain control, mobilization, incentive spirometer 3. Discharge planning: Home when passes therapy and able to get drain out. [facility] 09-14-2025 Note HNO ID: [id number] Author: WILLIAM CHAVEZ RN Service: Care Management Author Type: Registered Nurse Type: Care Mgt Progress Note Filed: 09/14/2025 07:27 Note Text: CARE MANAGEMENT PROGRESS NOTE SERVICE DATE: 09/14/2025 SERVICE TIME: 7:25 AM LOS: 3 days Post-Acute Discharge Planning Patient Goal(s): General wellness, Less pain, Be able to go home [place] of Choice Explained: Discharge Planning Participant(s): Patient/Family Comments: Anticipated # of Days Until Discharge: 1 Transport at Discharge: Needs Prior to Discharge: Post-Acute Discharge Plan: S/P revision back surgery, pending new PT/OT evals. Is A/O x4 and usually independent in all ADL's. Lives with April Spann [phone] who is able to provide intermittent physical assistance and transportation as needed. Home has 3 steps to enter home, has 1st floor 1/2 bath and then req another 17 steps to reach bed and bath rooms. Has a cane, wheeled walker, rollator and lift recliner. This hospitalization is under [facility]. [facility] is [place]- Phone # . Claim # [id number]; Date of Injury was 06/27/25. Prior to second surgery, PT/OT rec Home. D/C Plan is Home w/ Care and Support from when med cleared. No DME or d/c needs identified at this time. Family will provide d/c transportation. CM will cont to follow and assist with safe d/c planning. SIGNATURE: William Chavez RN PATIENT NAME: Leilani Spann DATE: September 14, 2025 TIME: 7:[address] [facility] 09-13-2025 Note HNO ID: [id number] Author: YVROSE ROSAS DO Service: ? Author Type: Physician Type: Progress Notes Filed: 09/13/2025 16:19 Note Text: INPATIENT PROGRESS NOTE SERVICE DATE: 09/13/2025 SERVICE TIME: 2:37 PM PRIMARY SERVICE: Internal Medicine Subjective CHIEF COMPLAINT: Neurogenic claudication due to lumbar spinal stenosis INTERVAL HPI: Patient is resting in bed. Patient states his pain is stable at this time. Patient is without new complaints. Patient denies chest pain, shortness of breath, abdominal pain, nausea, vomiting, diarrhea, constipation. Current Facility-Administered Medications Medication Dose Route Frequency dextrose 5% in NaCl 0.45% with 20 mEq/L KCl iv infusion 75 mL/hr INTRAVENOUS CONTINUOUS acetaminophen 325-650 mg tab(s) (TYLENOL) 325-650 mg ORAL q 4 H PRN HYDROmorphone 0.5 mg injection (DILAUDID) 0.5 mg INTRAVENOUS q 2 H PRN cyclobenzaprine 10 mg tab(s) (FLEXERIL) 10 mg ORAL TID PRN ondansetron 4 mg tab(s) (ZOFRAN) 4 mg ORAL q 6 H PRN Or ondansetron (PF) 4 mg injection (ZOFRAN) 4 mg INTRAVENOUS q 6 H PRN diphenhydrAMINE 25 mg capsule (BENADRYL) 25 mg ORAL q 4 H PRN oxyCODONE-acetaminophen 5-325 mg 1-2 tablet (PERCOCET) 1-2 tablet ORAL q [address] 30 mg cap(s) (CYMBALTA) 30 mg ORAL DAILY valsartan 80 mg tab(s) (DIOVAN) 80 mg ORAL DAILY Objective PHYSICAL EXAM: 09/13/25 1150 09/13/25 1200 09/13/25 1215 09/13/25 1343 BP: 125/68 141/65 120/70 115/78 Pulse: 87 97 99 87 Resp: 22 Temp: 36.6 ?C (97.9 ?F) 36.7 ?C (98.1 ?F) 36.7 ?C (98.1 ?F) TempSrc: Axillary SpO2: 99% 90% 95% 97% Weight: Height: 24 hour Intake AND Output: Intake/Output Summary (Last 24 hours) at 09/13/2025 1437 Last data filed at 09/13/2025 1213 Gross per 24 hour Intake 1410 ml Output 565 ml Net 845 ml Physical Exam General: Patient is alert and oriented x3 and appears well-nourished and well-hydrated. Patient speaks in full sentences and follows commands well. There is no accessory respiratory muscle use noted. Neck: Negative hepatojugular reflux or jugular venous distention, negative carotid bruit. Lungs: Clear to auscultation, no wheezing, rales, or rhonchi. Cardiac: Regular rhythm and rate, S1-S2 within normal limits, no murmurs, gallops were appreciated, no rubs. Abdomen: Soft, nontender, nondistended, bowel sounds are positive. Extremities: No edema, cyanosis, or clubbing. No Homans' sign bilaterally. Skin: No rashes or breakdown. Neurologic: Cranial nerves from II-XII intact grossly. Psychiatry: Normal affect. HEENT: Normocephalic, atraumatic. EOMI. Mucous membranes are pink and moist. LABORATORY TESTS: CBC: Recent Labs 09/13/25 0408 WBC 8.29 HB 13.1 HCT 40.4 PLT 370 MCV 87.4 RDWCV 14.2 NEUTP 68.1 ABSNEUT 5.65 LYMPHP 17.1 MONOP 9.3 EODINP 2.9 COAG: No results for input(s): "APTT", "INR" in the last 168 hours. BMP: Recent Labs 09/13/25 0408 09/07/25 1548 GLUC 104* 107* NA 135* 136 K 4.5 4.1 CHLOR 99 102 CO2 27 24 ANION 9 10 BUN 22 14 CREAT 1.19 1.23 CHEM: Recent Labs 09/13/25 0408 09/07/25 1548 CA 9.2 9.3 HEPATIC: No results for input(s): "ALKPHOS", "ALT", "AST", "TBILI", "LIPASE" in the last 168 hours. URINALYSIS:No results for input(s): "PH", "SPGR", "UGLUC", "UBILI", "UKET", "UHB", "UPROT", "UROBIL", "UWBC", "SSA" in the last 168 hours. Invalid input(s): "NITR" CARDIAC: No results for input(s): "CKTEST", "CKMB", "CKMBP", "TROPT", "PBNP" in the last 168 hours. Assessment: Principal Problem: Neurogenic claudication due to lumbar spinal stenosis (POA: Yes) Active Problems: Bladder cancer (HCC) (POA: Yes) Hypertension (POA: Yes) Heterozygous for MTHFR gene mutation (POA: Yes) Hyperlipidemia (POA: Yes) Pulmonary emphysema (HCC) (POA: Yes) Resolved Problems: * No resolved hospital problems. * Plan: Patient underwent today a revision L3 and L4 laminectomy, L3-4 facetectomy bilaterally, L3, L4, L5 instrumented posterior lateral fusion. Continue present care Labs stable DVT prophylaxis per orthopedics PT/OT Medication and Non-Pharmacologic VTE Prophylaxis/Anticoagulants 09/09/251614 vte pharmacologic prophylaxis contraindicated (id,or) 09/09/25 161 pneumatic compression sleeve(s) (id,oh) 09/09/25 161 activity - mobilize patient (id,or) VTE Prophylaxis: VTE prophylaxis appropriate SIGNATURE: Yvrose Rosas DO PATIENT NAME: Leilani Spann DATE: September 13, 2025 TIME: 2:[address] [facility] 09-13-2025 Note HNO ID: [id number] Author: JHONNY MAHMOOD APRN.MGMT CONSULTANT Service: Anesthesiology Author Type: Nurse Emergency Detail Driver Type: Anesthesia Procedure Notes Filed: 09/13/2025 08:27 Note Text: ANESTHESIOLOGY PROCEDURE NOTE Airway General Information Procedure Start Time/Medication Administration: 09/13/2025 8:03 AM Procedure End Time: 09/13/2025 8:08 AM Patient location during procedure: OR Timeout Performed Pre-procedure: timeout performed Consent Obtained: Yes Patient identity confirmed: arm band, care steam distribution supervisor and patient Staffing MGMT CONSULTANT: Jhonny Mahmood APRN.MGMT CONSULTANT Performed by: MGMT CONSULTANT Indications and Patient Condition Indications for airway management: anesthesia and airway protection Preoxygenated: yes anesthesia circuit Patient position: sniffing Method: asleep Cricoid Pressure: No Manual In-Line Stabilization: No Difficult Mask: No Final Airway Details Final airway type: endotracheal airwayFinal Endotracheal Airway: ETT Cuffed: yes Successful intubation technique: video laryngoscopy Devices used: Guardado and intubating stylet Endotracheal tube insertion site: oral Blade: Yadi Blade size: #3 ETT size (mm): 7.5 Measured from: lips Measurement (cm): 21 Placement verified by: chest auscultation and capnometry Cormack-Lehane Classification: grade I - full view of glottis Number of attempts at approach: 1 Failed airway: no Unrecognized esophageal intubation: no Airway not difficult SIGNATURE: Jhonny Mahmood APRN.CRNA PATIENT NAME: Leilani Spann DATE: September 13, 2025 TIME: 8:27 AM CSN: [id number] [facility] 09-12-2025 Note HNO ID: [id number] Author: YVROSE ROSAS DO Service: ? Author Type: Physician Type: Progress Notes Filed: 09/12/2025 17:03 Note Text: INPATIENT PROGRESS NOTE SERVICE DATE: 09/12/2025 SERVICE TIME: 3:40 PM PRIMARY SERVICE: Internal Medicine Subjective CHIEF COMPLAINT: Neurogenic claudication due to lumbar spinal stenosis INTERVAL HPI: Patient is resting in bed. Patient is without new complaints. Patient denies chest pain, shortness of breath, abdominal pain, nausea, vomiting, diarrhea, constipation. Current Facility-Administered Medications Medication Dose Route Frequency dextrose 5% in NaCl 0.45% with 20 mEq/L KCl iv infusion 75 mL/hr INTRAVENOUS CONTINUOUS acetaminophen 325-650 mg tab(s) (TYLENOL) 325-650 mg ORAL q 4 H PRN HYDROmorphone 0.5 mg injection (DILAUDID) 0.5 mg INTRAVENOUS q 2 H PRN cyclobenzaprine 10 mg tab(s) (FLEXERIL) 10 mg ORAL TID PRN ondansetron 4 mg tab(s) (ZOFRAN) 4 mg ORAL q 6 H PRN Or ondansetron (PF) 4 mg injection (ZOFRAN) 4 mg INTRAVENOUS q 6 H PRN diphenhydrAMINE 25 mg capsule (BENADRYL) 25 mg ORAL q 4 H PRN oxyCODONE-acetaminophen 5-325 mg 1-2 tablet (PERCOCET) 1-2 tablet ORAL q [address] 30 mg cap(s) (CYMBALTA) 30 mg ORAL DAILY valsartan 80 mg tab(s) (DIOVAN) 80 mg ORAL DAILY Objective PHYSICAL EXAM: 09/12/25 0920 09/12/25 1110 09/12/25 1303 09/12/25 1446 BP: 117/72 Pulse: 86 Resp: 16 19 20 19 Temp: 36.6 ?C (97.8 ?F) TempSrc: SpO2: 95% Weight: Height: 24 hour Intake AND Output: No intake or output data in the 24 hours ending 09/12/25 1540 Physical Exam General: Patient is alert and oriented x3 and appears well-nourished and well-hydrated. Patient speaks in full sentences and follows commands well. There is no accessory respiratory muscle use noted. Neck: Negative hepatojugular reflux or jugular venous distention, negative carotid bruit. Lungs: Clear to auscultation, no wheezing, rales, or rhonchi. Cardiac: Regular rhythm and rate, S1-S2 within normal limits, no murmurs, gallops were appreciated, no rubs. Abdomen: Soft, nontender, nondistended, bowel sounds are positive. Extremities: No edema, cyanosis, or clubbing. No Homans' sign bilaterally. Skin: No rashes or breakdown. Neurologic: Cranial nerves from II-XII intact grossly. Psychiatry: Normal affect. HEENT: Normocephalic, atraumatic. EOMI. Mucous membranes are pink and moist. LABORATORY TESTS: CBC:No results for input(s): "WBC", "HB", "HCT", "PLT", "MCV", "RDWCV", "NEUTP", "ABSNEUT", "LYMPHP", "MONOP", "EODINP" in the last 168 hours. COAG: No results for input(s): "APTT", "INR" in the last 168 hours. BMP: Recent Labs 09/07/25 1548 GLUC 107* NA 136 K 4.1 CHLOR 102 CO2 24 ANION 10 BUN 14 CREAT 1.23 CHEM: Recent Labs 09/07/25 1548 CA 9.3 HEPATIC: No results for input(s): "ALKPHOS", "ALT", "AST", "TBILI", "LIPASE" in the last 168 hours. URINALYSIS:No results for input(s): "PH", "SPGR", "UGLUC", "UBILI", "UKET", "UHB", "UPROT", "UROBIL", "UWBC", "SSA" in the last 168 hours. Invalid input(s): "NITR" CARDIAC: No results for input(s): "CKTEST", "CKMB", "CKMBP", "TROPT", "PBNP" in the last 168 hours. Assessment: Principal Problem: Neurogenic claudication due to lumbar spinal stenosis (POA: Yes) Active Problems: Bladder cancer (HCC) (POA: Yes) Hypertension (POA: Yes) Heterozygous for MTHFR gene mutation (POA: Yes) Hyperlipidemia (POA: Yes) Pulmonary emphysema (HCC) (POA: Yes) Resolved Problems: * No resolved hospital problems. * Plan: Continue present care Continue home medications Check labs in a.m. DVT prophylaxis per orthopedics Medication and Non-Pharmacologic VTE Prophylaxis/Anticoagulants 09/09/25 161 vte pharmacologic prophylaxis contraindicated (id,or) 09/09/25 161 pneumatic compression sleeve(s) (id,or) 09/09/25 161 activity - mobilize patient (id,or) VTE Prophylaxis: VTE prophylaxis appropriate SIGNATURE: Yvrose Rosas DO PATIENT NAME: Leilani Spann DATE: September 12, 2025 TIME: 3:[address] [facility] 09-12-2025 Note HNO ID: [id number] Author: CLAUS BOTELLO MD Service: Orthopaedic Surgery Author Type: Physician Type: Progress Notes Filed: 09/12/2025 09:21 Note Text: Orthopedic spine progress note Met with patient and his . Continues with strong pain in the L3 distribution on the left. He has no symptoms below the knee. Preoperatively he had some left L4 radicular pain also. Denies right radicular complaints. States that if he misses his pain medication his pain is debilitating. Vitals: Afebrile. Vital signs stable. Exam: Subjectively with this lesion in L3 distribution. Objectively without gross deficit. No gross motor deficit although he does have pain with testing on the left side. HANDH: No new labs. Drain: None Review of his lumbar MRI shows improvement of the central canal at the L3-4 level. He still has foraminal stenosis at L3-4 and L4-5 bilaterally, particularly involving his foraminal entry zone at L3-4 Assessment: 1. Postop day #3 L3 and superior L4 laminectomy with discectomy 2. Persistent and strong left radicular pain Plan: I have reviewed the patient's subjective complaints, my physical exam findings, and the imaging results with him. He continues to have fairly debilitating left leg pain in an L3 distribution and somewhat in an L4 distribution. Repeat MRI shows a central canal is improved however he still has noticeable foraminal stenosis at L3-4 and L4-5. We discussed the treatment options of continued conservative care with medicines and symptom management versus returning to the operating room for revision decompression, facetectomy, and instrumented fusion. The facetectomy would be done to fully decompress the foramen at L3-4 and L4-5. The facetectomy would necessitate the instrumentation. We discussed the pros and cons of each treatment option. I reviewed the technical aspects of the procedure as well as its risk and benefits. We discussed the long-term ramifications of a fusion procedure. After answering all of their questions, he states that he is fairly miserable with his continued left leg pain and is willing to return to the operating room. I did call the operating room. We are tentatively scheduled for 8 AM tomorrow. Will make n.p.o. after midnight. [facility] 09-11-2025 Note HNO ID: [id number] Author: STEPHANIE MURRAY RT(R) Service: ? Author Type: Technologist Type: Progress Notes Filed: 09/11/2025 17:08 Note Text: Summary: MRI Radiology Service Progress Note PATIENT NAME: Leilani Spann DATE OF SERVICE: September 11, 2025 TIME: 5:08 PM PATIENT IDENTITY VERIFICATION COMPLETED USING TWO (2) IDENTIFIERS: Name and Date of confirmed by patient verbally and Name and Date of confirmed by identification band. FALL SCREENING: Has the patient had 2 falls in the last year or 1 fall with injury or currently using an Ambulatory Assistive Device (Walker, Cane, Wheelchair, Crutches, etc.)? Inpatient: Screened on floor PATIENT GENDER DATA: Assigned male at PATIENT RELEVANT IMPLANT DATA REVIEWED: Not Applicable PATIENT PRESENTS WITH AN IMPLANTABLE OR ATTACHED HUMANITIES INSTRUCTOR: No RADIOLOGY DEPARTMENT: MR; Exam(s) Completed: Spine: Lumbar spine. Anesthesia: No. Aromatherapy Administered: No PERIPHERAL IV DATA: Inpatient: see LDA documentation SIGNED BY: RT Radha(R) September 11, 2025 5:[address] [facility] 09-11-2025 Note HNO ID: [id number] Author: HAILEY HAMLIN, MELANY Service: Care Management Author Type: Registered Nurse Type: Care Mgt Progress Note Filed: 09/11/2025 09:41 Note Text: CARE MANAGEMENT PROGRESS NOTE SERVICE DATE: 09/11/2025 SERVICE TIME: 934 LOS: 0 days Chart reviewed. Changed from Ext Recovery to Inpt on 09/11/25. S/p L3 and superior L4 laminectomy with L3-4 discectomy by on 09/09/25. Is A/O x4 and usually independent in all ADL's. Lives with April Spann [phone] who is able to provide intermittent physical assistance and transportation as needed. Home has 3 steps to enter home, has 1st floor 1/2 bath and then req another 17 steps to reach bed and bath rooms. Has a cane, wheeled walker, rollator and lift recliner. This hospitalization is under [facility]. Has med and Rx coverage. PCP is Celina Delgado [employer]. Hx Bladder CA- last Chemo Tx was approx 9 months ago. Urologist is . [facility] is [place]- Phone # . Claim # [id number]; Date of Injury was 06/27/25. PT/OT rec Home. Cont IV Decadron Taper. MRI ordered- concern for retained fragment in foramen. D/C Delay: MRI, Pain Control AND Med Clearance. D/C Plan is Home w/ Care and Support from when med cleared. No DME or d/c needs identified at this time. Family will provide d/c transportation. CM will cont to follow and assist with safe d/c planning. SIGNATURE: Hailey Hamlin RN PATIENT NAME: Leilani Spann DATE: September 11, 2025 TIME: 9:[address] [facility] 09-11-2025 Note HNO ID: [id number] Author: ELIZA GUERRERO, photocomposing machine operator Service: ? Author Type: Technologist Type: Progress Notes Filed: 09/11/2025 07:05 Note Text: Summary: MRI RADIOLOGY SERVICE PROGRESS NOTE DATE OF SERVICE: September 11, 2025 TIME OF SERVICE: 704 EVENT: EXAM/PROCEDURE NOT COMPLETED - NEED MRI SCREENING FORM ADDITIONAL EVENT DETAILS: N/A SIGNATURE: Eliza Guerrero photocomposing machine operator PATIENT NAME: Leilani Spann DATE: September 11, 2025 TIME: 7:05 AM PAGER/CONTACT #: [facility] 09-11-2025 Note HNO ID: [id number] Author: CLAUS BOTELLO MD Service: Orthopaedic Surgery Author Type: Physician Type: Progress Notes Filed: 09/11/2025 06:04 Note Text: Orthopedic spine progress note Leilani still has fairly strong episodic L3 pain on the left side. He does not complain of pain down the leg in an L4 distribution which he had preoperatively. Vitals: Afebrile. Vital signs stable. Exam: Neuroexam with no gross deficit although he does have pain with hip flexion and knee extension HANDH: No labs Drain: No drain Assessment: 1. Postop day #2 L3 and superior L4 laminectomy with discectomy Plan: We will order a lumbar MRI. He has more symptoms that would be anticipated with the discectomy that was done. There is concern for retained fragment potentially in an L3-4 foramen. Discussed with the patient that if there is a retained fragment in the foramen that this may necessitate return to the operating room with a facetectomy and potential fusion in order to remove the retained fragment. Will follow for MRI results. [facility] 09-10-2025 Note HNO ID: [id number] Author: HAILEY HAMLIN RN Service: Care Management Author Type: Registered Nurse Type: Care Mgt Initial Assessment Filed: 09/10/2025 08:42 Note Text: CARE MANAGEMENT: ASSESSMENT AND DISCHARGE PLAN SERVICE DATE: September 10, 2025 SERVICE TIME: 08 PCP: Celina Delgado NP, CUSTOM CAR BUILDER Primary Contact: Extended Emergency Contact Information Primary Emergency Contact: APRIL SPANN [address]: [address] [place] [id number] [facility] Mobile Relation: Spouse Admission Status: Observation Insurance Provider: [employer]TON NOEL Discharge Planning requested by: Per Department Practice Potential Transition Plans Home Advance Directives Current Advance Directive: None Slot Machine Floor Person Attempted to Assist with AD Completion: Yes Action: Education Provided Current Living Arrangements and Support Lives with: Spouse/significant other Type of Residence: Private Residence (House) Does the patient have to climb stairs at home?: stairs outside the home, stairs within the home Support: Spouse/significant other How do you manage to accomplish the following: Independent: Ambulation, Bathe/Shower, Dress, Meals/Meal Prep, Going to the bathroom, Medication Management, Transportation to appointments/community Current Services/Equipment Current Post-Acute Service(s): DME Current DME Type: Cane, Walker, Rolling walker Current Post-Acute Service(s) Provider: Lift Recliner Discharge Planning Patient Goal(s): General wellness, Less pain, Be able to go home [place] of Choice Explained: [place] Given: No Reason Not Given: No placements necessary Are you interested in bedside delivery of your medications? Yes Discharge Planning Participant(s): Patient Patient/Family Comments: Caregiver Assessment: Caregiver is ready, willing and able to meet the patient's needs as recommended by the inter-professional team: Yes Name of Caregiver: Transport at Discharge: Transportation Arrangements: Car Destination: Home Needs Prior to Discharge: Post-Acute Discharge Plan: Chart reviewed. S/p L3 and superior L4 laminectomy with L3-4 discectomy by on 09/09/25. Is A/O x4 and usually independent in all ADL's. Lives with April Spann [phone] who is able to provide intermittent physical assistance and transportation as needed. Home has 3 steps to enter home, has 1st floor 1/2 bath and then req another 17 steps to reach bed and bath rooms. Has a cane, wheeled walker, rollator and lift recliner. This hospitalization is under [facility]. Has med and Rx coverage. PCP is Celina Delgado [employer]. Hx Bladder CA- last Chemo Tx was approx 9 months ago. Urologist is . [facility] is [place]- Phone # . Claim # [id number]; Date of Injury was 06/27/25. PT/OT eval and tx. Drain patent. IV Decadron Taper ordered. D/C Delay: Drain Output and Pain Control. D/C Plan is Home w/ Care and Support from when med cleared. No DME or d/c needs identified at this time. Family will provide d/c transportation. CM will cont to follow and assist with safe d/c planning. Intimate Partner Violence We have begun to talk to patients about safe and healthy relationships because it can have a large impact on your health. Do you feel safe around your partner or ex-partner?: Yes Food Insecurity Within the past 12 months, you worried that your food would run out before you got the money to buy more.: Never true Within the past 12 months, the food you bought just didn't last and you didn't have money to get more.: Never true Transportation Needs In the past 12 months, has lack of transportation kept you from medical appointments or from getting medications?: No In the past 12 months, has lack of transportation kept you from meetings, work, or from getting things needed for daily living?: No Housing Stability In the last 12 months, was there a time when you were not able to pay the mortgage or rent on time?: No At any time in the past 12 months, were you homeless or living in a halfway (including now)?: No Utilities In the past 12 months has the [employer], gas, oil, or water [employer] threatened to shut off services in your home?: No Social Information Financial Resources: Employed SIGNATURE: Hailey Hamlin RN PATIENT NAME: Leilani Spann DATE: September 10, 2025 TIME: 8:[address] [facility] 09-10-2025 Note HNO ID: [id number] Author: CLAUS BOTELLO MD Service: Orthopaedic Surgery Author Type: Physician Type: Progress Notes Filed: 09/10/2025 06:20 Note Text: Orthopedic spine progress note Continues to complain of episodic strong left leg pain. Denies any bowel or bladder complaints. He is passing flatus and voiding. Vitals: Afebrile. Vital signs stable. Exam: Dressing okay. Objectively, he has no sensory or motor deficits. HANDH: No labs. Drain: None Assessment: 1. Postop day #1 L3 and superior L4 laminectomy with L3-4 discectomy Plan: He continues with some fairly strong symptoms despite removing disc material yesterday and decompressing from the L3 to the L4 pedicle on his left side. 1. Will give a Decadron taper of 8 mg IV x 1, then 8 hours later give 4 mg IV x 1, then 8 hours later give 2 mg IV x 1 2. Mobilize with physical therapy 3. Discharge planning: Follow clinical course today. Hopefully home tomorrow if his pain is more tolerable. If he still has complaints of debilitating left leg pain, would repeat MRI to look for potential retained fragment. [facility] 09-09-2025 Note HNO ID: [id number] Author: MODESTO GOMEZ AA Service: ? Author Type: Wind Farm Engineer Type: Anesthesia Procedure Notes Filed: 09/09/2025 12:18 Note Text: ANESTHESIOLOGY PROCEDURE NOTE PIV General Information Procedure Start Time/Medication Administration: 09/09/2025 11:55 AM Procedure End Time: 09/09/2025 11:56 AM Patient Location: OR Staffing CAA: Modesto Gomez AA Performed by: EDGAR Preparation Sterility Preparation: hand hygiene performed prior to procedure, mask used, skin prep agent completely dried prior to procedure Sterility Technique Not Completely Performed Due to Extreme Emergency: No Site Prep: alcohol Procedure Details Indication: need for IV access Needle Size/Type: 18 gauge angiocath Orientation: Right Location: Hand Imaging Guidance Used: No SIGNATURE: CARLOS Barnes PATIENT NAME: Leilani Spann DATE: September 09, 2025 TIME: 12:18 PM CSN: [id number] [facility] 09-09-2025 Note HNO ID: [id number] Author: MODESTO GOMEZ AA Service: ? Author Type: Wind Farm Engineer Type: Anesthesia Procedure Notes Filed: 09/09/2025 12:18 Note Text: ANESTHESIOLOGY PROCEDURE NOTE Airway General Information Procedure Start Time/Medication Administration: 09/09/2025 11:49 AM Procedure End Time: 09/09/2025 11:51 AM Patient location during procedure: OR Timeout Performed Pre-procedure: timeout performed Consent Obtained: Yes Patient identity confirmed: arm band and patient Staffing Anesthesiologist: Satya Queen DO CAA: Modesto Gomez AA Performed by: EDGAR Indications and Patient Condition Indications for airway management: anesthesia Preoxygenated: yes anesthesia circuit Patient position: sniffing Method: asleep Cricoid Pressure: No Manual In-Line Stabilization: No Difficult Mask: No Final Airway Details Final airway type: endotracheal airwayFinal Endotracheal Airway: ETT Cuffed: yes Successful intubation technique: video laryngoscopy Devices used: intubating stylet and Guardado Endotracheal tube insertion site: oral Blade: Yadi Blade size: #3 ETT size (mm): 7.5 Measured from: teeth Measurement (cm): 22 Placement verified by: chest auscultation and capnometry Cormack-Lehane Classification: grade I - full view of glottis Number of attempts at approach: 1 Failed airway: no Unrecognized esophageal intubation: no Airway not difficult Comments Uncomplicated intubation, dentition unchanged from preoperative assessment. SIGNATURE: CARLOS Barnes PATIENT NAME: Leilani Spann DATE: September 09, 2025 TIME: 12:17 PM CSN: [id number] [facility] 09-08-2025 Note HNO ID: [id number] Author: BENITA MONGE RN Service: Nursing Author Type: Registered Nurse Type: Progress Notes Filed: 09/08/2025 16:14 Note Text: PRE-PROCEDURE INSTRUCTIONS TO PREPARE FOR YOUR PROCEDURE: Your arrival time for your procedure is 0945. Do NOT eat any solid foods after MIDNIGHT the night prior to your procedure - this includes gum or mints. You can drink clear liquids* up until 0745, which is 2 hours before your arrival time. *Clear liquids = water, carbohydrate drink (sports drink that is clear or yellow in color), Ensure Pre-Surgery (given by RADHA or dennis Damian), fruit juice without pulp (apple/cranberry), clear tea, black coffee (no cream). NO CARBONATED BEVERAGES AND NO ALCOHOL. Shower the morning of the procedure, put on clean clothes, and have clean sheets for your bed to help prevent infection after your procedure. Leave all valuables such as jewelry including rings, piercings, wallets, and purses at home. Wear comfortable, loose-fitting clothing. If you wear glasses or contacts, please bring a case. SPECIAL INSTRUCTIONS: If instructed, bring your first voided urine specimen with you. If you were provided skin preparation to use prior to your procedure, complete this as directed. If you were provided Ensure Pre-Surgery drink, you need to drink this at n/a. This should be consumed quickly (in less than 5 minutes, rather than sipped over time) If a bowel preparation has been ordered by your physician, it is very important to follow the bowel prep instructions or your procedure may need to be rescheduled. If you use crutches or a walker, bring them with you. If you have a home CPAP/BIPAP machine, bring it with you. If you were instructed to complete a fleets enema or bowel prep, complete as directed. Bring copy of Living Will/Power of Drainage Engineer. Do not smoke or chew. If you use tobacco, quit or at least cut down before surgery. Do not smoke or chew after midnight the day before your surgery. This effects bleeding, infection, healing, and so much more. Do not take any Diet or Herbal Supplements 2 weeks prior to your surgery date. Please notify your physician if there is any change in your physical condition such as a cold, cough, fever, sore throat, or skin irritation near the surgical site. Visitors under the age of 14 are restricted in the Surgery Center. UPON ARRIVAL: Access to [facility] is located on [address] Wafer Polishing Lead Worker parking is available for your convenience from 5am-5pm- there is a $5.00 charge for this service. Take the elevators directly inside the entrance to the 1st Floor Surgery Lobby. Sign in at the podium located to the left when you get off the elevators. A payment may be expected at the time of service. One visitor may come back to the preoperative area with you. The preoperative staff will be reviewing your medical history, please let them know if you prefer not to have a visitor with you during this time. Once you are ready for your procedure, two visitors at a time are permitted in your preprocedure room. MEDICATION INSTRUCTIONS PRIOR TO SURGERY Please read below carefully for your personalized instructions. Medications: If you are on blood thinner or anticoagulants including aspirin, please confirm with your surgical team on when to stop these medications. Unless instructed differently by your surgical team, stay on all of your medications until your surgery. Pre Surgery Med Instructions Medication instructions acetaminophen (TYLENOL EXTRA STRENGTH) 500 mg tablet Continue as prescribed. DULoxetine DR WILLOUGHBYMBALTA) 30 mg capsule If you normally take this medication in the morning, it is ok to take the morning of surgery with a sip of water. naproxen sodium (ALEVE) 220 mg tablet Follow surgeon's instructions. traMADol (ULTRAM) 50 mg tablet Continue as prescribed. valsartan (DIOVAN) 80 mg tablet DO NOT TAKE THE MORNING OF SURGERY. If you take any medications for erectile dysfunction-Cialis (Tadalafil), Levitra, Staxyn (Vardenafil) Viagra (Sildenenafil please do not take these for 48 hours before surgery. If you have any medication changes between receiving these instructions and your surgery date, please provide this updated information with the nurse who calls you the week day prior to your surgical procedure so we can update your list and provide you with updated instructions for the morning of your procedure. [facility] 09-08-2025 Note HNO ID: [id number] Author: NICKOLAS NEVES APRN.CNP Service: ? Author Type: Nurse Practitioner Type: Progress Notes Filed: 09/08/2025 08:45 Note Text: Summary: Labs Repeat BMP showed that his kidney function has normalized. [facility] 09-07-2025 Note HNO ID: [id number] Author: JARON SMITH PA-C Service: ? Author Type: Nurse Practitioner Type: Progress Notes Filed: 09/09/2025 08:16 Note Text: PACC Consult SERVICE DATE: 09/07/2025 SERVICE TIME: 3:52 PM PRIMARY CARE PHYSICIAN: Celina Delgado, [employer], CUSTOM CAR BUILDER REASON FOR VISIT: Leilani Spann is a 70 year old male who is scheduled for left L3-L4 microdiscectomy, possible L3 Lami at the request of Dr. Botello for consultation. My final recommendation will be communicated back to the requesting physician by way of shared medical record or letter. 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 Botello Bladder cancer (HCC) 2021 In remission as of 09/04/25 call: had surgery and chemo Contact dermatitis and eczema 09/04/25: No current issues. Embolus (HCC) 2021 Abdominal blood clots. Admitted and on eliquis for short time. did not know much about this due to not being able to visit patient in hospital due to visiting restrictions. Hypertension 08/2025 Just started meds in 08/2025, Only had BP checked once since starting states it was better. PCP not sure if high BP is the patient's pain or true hypertension PAST SURGICAL HISTORY Procedure Laterality Date ARTHROSCOPY KNEE DIAGNOSTIC W/WO SYNOVIAL BX SPX Right 1991 BLADDER SURGERY HX 2021 For bladder cancer HERNIA REPAIR HX x2 VASECTOMY FAMILY HISTORY Problem Relation Age of Onset None Other SOCIAL HISTORY: SOCIAL HISTORY[1] MEDICATIONS: Prior to Admission medications as of 09/07/25 1448 Medication Sig Last Dose Taking DULoxetine DR (CYMBALTA) 30 mg capsule Take 30 mg by mouth once daily. Just started 08/2025 for pain control with back Yes traMADol (ULTRAM) 50 mg tablet Take 50 mg by mouth every 6 hours as needed for pain. Yes acetaminophen (TYLENOL EXTRA STRENGTH) 500 mg tablet Take 1,000 mg by mouth every 8 hours as needed for pain. Yes valsartan (DIOVAN) 80 mg tablet Take 80 mg by mouth once daily. Yes naproxen sodium (ALEVE) 220 mg tablet Take 220 mg by mouth two times a day with meals. Last dose 09/01/25 for OR 09/09/25 Yes No medication comments found. CURRENT ALLERGIES: ALLERGIES No Known Allergies REVIEW OF SYSTEMS: PAIN ASSESSMENT: Pain Pain Level: 8 Pain Location: Leg-Left Description: Stabbing, Numbness Duration Units: Months Frequency: Continuous Intervention/Comfort measure: Relaxation, Cold, Heat, Medication General: No weight loss, malaise or fevers. Neuro: No history of TIA's, stroke, [employer] tumor, impaired sensorium, hemiplegia, paraplegia or quadraplegia. No neurological symptoms or problems. Respiratory: Positive for Tobacco Use cigarette and cigar smoker Cardiovascular: Positive for: DVT/PE, Hypertension GI: No history of GI symptoms or problems. No history of esophageal varices, recent ascites, or ETOH greater than 2 drinks per day. : No history of dysuria, frequency or incontinence,, stones or chronic kidney disease Endocrine: No history of diabetes. Has not taken steroids within the past 30 days. No history of endocrinological symptoms or problems. Hematology: Heterozygous MTHFR mutation Oncology: See HPI Psych: No history of psychiatric symptoms or problems. Musculoskeletal: Back pain and Joint pain Skin: Negative for lesions, rash and itching. Objective PHYSICAL EXAM: VITALS: BP 135/82 Pulse 81 Resp 20 Ht 5' 5" (1.65m) Wt 175 lb (79.4kg) SpO2 97% BMI 29.12 kg/(m2). General: Alert and oriented, Distressed, laying back in the recliner, here today with his Skin: Normal color, no rash, no lesions. HEENT: Wears glasses, multiple missing teeth, denies any loose or broken teeth Cardiovascular: Normal S1 AND S2, no rubs, murmurs or gallops. No JVD. Pulse regular. Lungs: Normal breath sounds, no wheezes or crackles. Extremities: No deformity, no edema or tenderness, no joint swelling or clubbing. Neurological: Abnormal gait in a wheelchair today, limb weakness, left LE Pulses: Not examined Diagnostic tests reviewed for today's visit: He had labs done 09/03 and his CBC was completely normal. His BMP did show a creatinine of 1.37 which is out of his norm (more content not included)... [facility] 09-07-2025 Note HNO ID: [id number] Author: NICKOLAS NEVES APRN.KIRBY Service: ? Author Type: Nurse Practitioner Type: Progress Notes Filed: 09/07/2025 16:06 Note Text: Summary: DOS Meds MEDICATION INSTRUCTIONS PRIOR TO SURGERY Please read below carefully for your personalized instructions. Medications: If you are on blood thinner or anticoagulants including aspirin, please confirm with your surgical team on when to stop these medications. Unless instructed differently by your surgical team, stay on all of your medications until your surgery. Pre Surgery Med Instructions Medication instructions acetaminophen (TYLENOL EXTRA STRENGTH) 500 mg tablet Continue as prescribed. DULoxetine DR (CYMBALTA) 30 mg capsule If you normally take this medication in the morning, it is ok to take the morning of surgery with a sip of water. naproxen sodium (ALEVE) 220 mg tablet Follow surgeon's instructions. traMADol (ULTRAM) 50 mg tablet Continue as prescribed. valsartan (DIOVAN) 80 mg tablet DO NOT TAKE THE MORNING OF SURGERY. If you take any medications for erectile dysfunction-Cialis (Tadalafil), Levitra, Staxyn (Vardenafil) Viagra (Sildenenafil please do not take these for 48 hours before surgery. If you have any medication changes between receiving these instructions and your surgery date, please provide this updated information with the nurse who calls you the week day prior to your surgical procedure so we can update your list and provide you with updated instructions for the morning of your procedure. [facility] 09-07-2025 Note HNO ID: [id number] Author: KATHRIN VAUGHAN APRN.CNP Service: ? Author Type: Nurse Practitioner Type: Progress Notes Filed: 09/07/2025 16:06 Note Text: Summary: PAT REVIEW Wake L space L3-4 microdiscectomy, possible L3 laminectomy 2hr, same-day 70-year-old smoker male PMH: Bladder cancer, HTN, "abdominal blood clots" (treated with Eliquis 2021) [facility] 08-19-2025 Discharge summary [facility] 08-19-2025 Radiology Diagnostic study note [facility] Imaging Services [address] [place], [place] [id number] Orbits for Foreign Body MR#: [id number] Acct: [id number] Name: LEILANI SPANN Rep #: [id number] : 1955 M 70 From: Brody Skaggs MD PCP: Celina Delgado NP-Bret Status: REG ER Study:Orbits for Foreign Body Date of Exam: 08/19/25 Exam# [id number] Ordering Dr: Criselda Boykin MD PROCEDURE: ORBITS FOR FOREIGN BODY 08/19/2025 REASON FOR EXAM: HX METAL TO EYE,,PRE MRI TECHNIQUE: Procedure Code: RADORBFB2. Modality: DX Procedure: ORBITS FOR FOREIGN BODY COMPARISON: None FINDINGS: Bones: Unremarkable Sinuses: Unremarkable Additional findings: No radiopaque foreign bodies RAD/Orbits for Foreign Body IMPRESSION: No radiopaque foreign bodies. [facility] CC: LINDA Delgado; Dr. Victoriano Boykin MD ~ Television Cameraman: Signed [facility] 08-19-2025 Discharge summary Note Date/Time August 19, 2025 7:33pm [facility] Medical Records Department [address] [place] [address] Emergency Department Summary 08/19/25 MR#: [id number] Acct: [id number] Name: LEILANI SPANN Rep #:[id number] : 1955 70 From: Victoriano Boykin MD PCP: LINDA Sanchez Status:DEP ER Location: ED HPI <Dr. Victoriano Boykin MD - Last Filed: 08/20/25 11:27> History of Present Illness Chief Complaint: Lower Extremity Injury Detail of Chief Complaint: Low back pain radiating down the leg L3 dermatome Informant: patient Onset/Context/Timing Onset: Days Chronic pain exacerbated by: Initial injury mid June Injury: work related Timing: Continuous Quality: Dull, Aching and Burning Location: Lumbar and - (Left inguinal greater trochanteric area down to medial proximal left leg) Current Severity: Mild Maximum Severity: Severe Worsened by: improves with Movement; worse with Ambulation, Bending, Lifting or Night time pain Relieved by: Nothing Associated Symptoms Associated Symptoms: Radiation to Right Leg (L3 dermatome); Negative for Numbness, Tingling, Fever, Abdominal Pain, Dysuria, Unable to Ambulate, Unable to Transfer, Urinary Retention, Urinary Incontinence, Constipation or Fecal Incontinence Narrative Narrative: Patient is a 70-year-old male. He presents with pain that he states in his lefthip. Points to the left greater trochanteric region and goes anteriorly past the knee medially. He denies bowel or bladder dysfunction. He denies foot drop. He denies buckling of his knees going up or down steps. He denies fever or chills. He denies saddle paresthesia or anesthesia. He has had no recent procedures. He denies weight loss or night sweats. Prior similar symptoms: Yes Recent Illness/Hospitalization: Yes (Seen by orthopedic surgeon. Outpatient MRIand hip was ordered.) [facility] <Dr. Victoriano Boykin MD - Last Filed: 08/20/25 11:27> [facility] Medical History Loose, teeth Cancer Restless legs Back pain Hoarseness History of pain when walking History of edema Acute blood loss anemia Acute UTI Edema of right lower leg Anemia Wears glasses Alcohol use Arthritis Smoker Bladder mass Hearing loss, left Hearing loss, right Home Medications ?Medication ?Instructions ?Recorded ?Last Taken ?Type acetaminophen 500 mg tablet 1,000 mg PO Q6H PRN pain 1 Unknown History (Acetaminophen Extra Strength) ibuprofen 600 mg tablet 600 mg PO Q6H PRN fever or p ain 08/15/24 Unknown Rx #20 tabs ciprofloxacin HCl 500 mg tablet 500 mg PO BID #10 tabs 10/09/24 Unknown Rx (Cipro) phenazopyridine 200 mg tablet 200 mg PO TID 5 days #15 tabs 10/09/24 Unknown Rx (Pyridium) hydrocodone-acetaminophen 5-325mg 1 tab PO Q6H PRN PRN Pain 3 days 05/02/25 Unknown Rx 5mg-325mg #10 TABLETS naproxen 500 mg tablet 500 mg PO BID #10 tabs 05/02 Unknown Rx oxycodone-acetaminophen 5 mg-325 1 tab PO Q6H PRN PRN pain 5 days 08/19/25 Unknown Rx mg tablet #20 TABLETS Allergy/AdvReac Type Severity Reaction Status Date / Time No Known Allergies Allergy Verified 08/19/25 14:03 Surgical History Hx of surgical procedure Hx of surgical amputation of finger Hx of hernia repair History of transurethral resection of bladder tumor (TURBT) Social History household members: spouse Smoking Status: Light Smoker (<10/day) substance use type: does not use ROS <Dr. Victoriano Boykin MD - Last Filed: 08/20/25 11:27> ROS ED Constitutional Constitutional ED: Denies chills, fever(s), subjective or sweats Cardiovascular Cardiovascular: Denies chest pain, orthopnea or palpitations Respiratory/Chest Respiratory/Chest: Denies dyspnea, dyspnea on exertion or orthopnea Gastrointestinal Gastrointestinal: Denies abdominal pain, nausea or vomiting Genitourinary Genitourinary ED: Denies dysuria, hematuria or urinary frequency Musculoskeletal Musculoskeletal: Reports back pain; Denies arthralgias or myalgias Integumentary Denies rash Neurologic Neurologic: Denies paresthesias or weakness Hematologic/Lymphatic Hematologic/Lymphatic: Denies easy bleeding or easy bruising EXAM <Dr. Victoriano Boykin MD - Last Filed: 08/20/25 11:27> Physical Exam Const Vital Signs: 08/19/25 14:03 08/19/25 18:03 08/19/25 18:57 Temperature 97 F L 97.8 F Temperature Source Temporal Pulse Rate 60 78 91 Respiratory Rate 25 H 16 16 Blood Pressure 127/108 H 139/78 H 141/78 H Blood Pressure Mean 114 98 99 Pulse Ox 97 98 99 Oxygen Delivery Method Room Air Room Air Positive well nourished and well developed Constitutional Narrative: Patient appears uncomfortable he is laying on the examination cart. General Appearance ED: well developed HEENT Reports moist mucous membranes HEENT Narrative: Unremarkable Eyes PERRL and EOMs intact bilaterally General Eye ED: Negative for scleral icterus Neck no lymphadenopathy, supple and no JVD Resp normal respiratory effort Cardio regular rate and regular rhythm GI normal to inspection, nondistended, normoactive bowel sounds, soft to palpation,non-tender, non-distended and no masses GI Narrative: No palpable pulsatile mass or abdominal bruit. Back/Spine normal to inspection and no thoracic nor lumbar tenderness Back/Spine Narrative: Straight leg test is negative right and left. Femoral stretch test is negative right and left. Patient has no patellar or ankle reflex on either side. EHL isintact bilaterally. Gait was observed. There was no foot drop. Able to walk on heels and toes. Able to perform 1 legged squat right leg. 1 legged squat left leg patient was unable to rise and leg buckled. He also was experiencing pain. Thoracic Spine / Upper Back: Negative for paraspinal muscle tenderness Lumbar Spine / Lower Back: ROM limited and straight leg raise negative bilaterally Extremity normal to inspection and no clubbing, cyanosis or edema Neuro oriented x3 and no sensory deficits noted Deep Tendon Reflexes: Rt Patellar (L4): 0, Lt Patellar (L4): 0, Rt Ankle (S1): 0and Lt Ankle (S1): 0 Deep Tendon Reflexes Back: Rt Patellar (L4): 0, Lt Patellar (L4): 0, Rt Ankle (S1): 0 and Lt Ankle (S1): 0 Plantar Reflex: Downgoing: bilateral (There is no clonus bilaterally.) Psych mental status grossly normal Skin no rashes or lesions noted and no wounds <Dr. Kenji Gamboa DO - Last Filed: 08/19/25 18:50> Physical Exam Const Vital Signs: 08/19/25 14:03 08/19/25 18:03 08/19/25 18:57 Temperature 97 F L 97.8 F Temperature Source Temporal Pulse Rate 60 78 91 Respiratory Rate 25 H 16 16 Blood Pressure 127/108 H 139/78 H 141/78 H Blood Pressure Mean 114 98 99 Pulse Ox 97 98 99 Oxygen Delivery Method Room Air Room Air MDM <Dr. Victoriano Boykin MD - Last Filed: 08/20/25 11:27> [facility] MDM Narrative Medical decision making narrative: IV was established. He was medicated with Dilaudid for his pain. Since patienthas buckling of his knee with weakness of the quadricep absent reflex and pain in L3 dermatome will obtain MRI of his back to assess for acute herniated disc and specifically lateral extrusion which will require urgent intervention. His history and physical not consistent with cauda equina, epidural abscess or spontaneous epidural hematoma. He is not on anticoagulant. [facility] osteoarthritis of his hip. There is no findings of avascular necrosis. Radiography Chest X-Ray - ED: Read by ED Physician (X-ray of orbits was ordered by radiologyto assess for foreign body. Dr. Skaggs's interpretation was read.) Diagnostic Testing: Clinical Impression(s) from Imaging Studies Lumbar Spine MRI 08/19/25 14:30 IMPRESSION: 1. Mild multilevel spondylotic changes, as described. 2. Dorsal disc bulge and left subarticular disc extrusion at L3-4, effacing the left lateral recess likely with impingement of the left L3 and/or L4 nerve roots. 3. Mild-moderate bilateral neural foraminal narrowing at L3-4, L4-5, and L5-S1. Reading Location: [id number] Orbit X-Ray 08/19/25 15:10 IMPRESSION: No radiopaque foreign bodies. Reading Location: [facility] Treatment and Re-Evaluation Narrative: The afternoon physician was made aware of Mr. Kay. Disposition pending MRI results. <Dr. Kenji Gamboa, DO - Last Filed: 08/19/25 18:50> MDM Radiography Diagnostic Testing: Clinical Impression(s) from Imaging Studies Lumbar Spine MRI 08/19/25 14:30 IMPRESSION: 1. Mild multilevel spondylotic changes, as described. 2. Dorsal disc bulge and left subarticular disc extrusion at L3-4, effacing the left lateral recess likely with impingement of the left L3 and/or L4 nerve roots. 3. Mild-moderate bilateral neural foraminal narrowing at L3-4, L4-5, and L5-S1. Reading Location: [id number] X-Ray 08/19/25 15:10 IMPRESSION: No radiopaque foreign bodies. Reading Location: [facility] Treatment and Re-Evaluation Narrative: The afternoon physician was made aware of Mr. Kay. Disposition pending MRI results. Care of the patient was turned over to pa pending MRI results. MRI was reviewed. There is left disc herniation at L3-L4 with impingement of the left L3 and/or L4 nerve roots. There is mild to moderate bilateral neural foramina stenosis at L3-4, L4-5, and L5-S1. There are some degenerative changes noted aswell. This was interpreted by the radiologist and was also independently reviewed by myself. Patient was given a repeat dose of Dilaudid here. Patient was advised of his findings. Patient was given a prescription for Percocet. Patient was instructed to follow-up with an orthopedic route specialist. Patient was given a referral for Dr. Collier here. Since the patient has been established at [facility] in [place], patient was also recommended to call their office to see if they can be seen by an orthopedic spine surgeon there. Patient was instructed to continue ice and heat. Patient was instructed to return if any loss of control of his bowels or bladder, perianal and perineal numbness, or if worse in any way. Discharge Plan Triage Chief Complaint: Lower Extremity Injury ED Provider: Victoriano Boykin Dx/Rx/DC Orders Clinical Impression: Acute left lumbar radiculopathy, Elevated blood pressure reading Instructions: Understanding Lumbar Radiculopathy, ED Back Pain (Acute or Chronic), ED Sciatica Prescriptions: New oxycodone-acetaminophen 5-325 mg tablet 1 tab PO Q6H PRN PRN (Reason: pain) 5 Days Qty: 20 0RF No Action acetaminophen [Acetaminophen Extra Strength] 500 mg tablet 1,000 mg PO Q6H PRN (Reason: pain) ibuprofen 600 mg tablet 600 mg PO Q6H PRN (Reason: fever or pain) Qty: 20 0RF ciprofloxacin HCl [Cipro] 500 mg tablet 500 mg PO BID Qty: 10 0RF phenazopyridine [Pyridium] 200 mg tablet 200 mg PO TID 5 Days Qty: 15 0RF hydrocodone-acetaminophen 5-325 mg tablet 1 tab PO Q6H PRN PRN (Reason: Pain) 3 Days Qty: 10 0RF naproxen 500 mg tablet 500 mg PO BID Qty: 10 0RF Primary Care Provider: Celina Delgado NP Referrals: Seymour Collier MD [Med Staff - Active Staff, Orthopedics] - 5-7 Days Celina Delgado NP, [employer] [Primary Care Provider, Medical] - 3-5 Days Print Language: Icelandic Disposition Disposition: Home, Self Care Discharge Date/Time: 08/19/25 19:33 What to do if you have Problems For any increased pain, shortness of breath, bleeding, nausea or vomiting, chestpain, or any unexpected problems, contact your Primary Care Provider. Call [facility] ([phone]) or report to the closest Emergency Room. Call 911 if necessary. 08/20/25 1127 <Electronically signed by Victoriano Boykin MD> Cosigner Signature (if applicable): 08/19/25 2639 <Electronically signed by Kenji Gamboa DO> CC: [employer] Celina Delgado ~ Signed [facility] Work Phone: [phone] 540-799709-16-2025 Note* Exam Date Time Procedure Performing Provider Status 07/21/25 9:39 AM XR Hip 2-3 Views Left JARON CRISTOBAL DO; Auth (Verified) [id number] ORIGINAL EXAMINATION: 2 XRAY VIEWS OF THE LEFT HIP07/21/2025 9:40 am COMPARISON: None HISTORY: ORDERING SYSTEM PROVIDED HISTORY: Reason for Exam: left hip pain, no trauma FINDINGS: There is no fracture or dislocation. The left SI joint and pubic symphysis are within normal limits. Sacral arcuate lines are preserved. The femoroacetabular joint is well maintained with only mild degenerative changes. No suspicious osseous lesions are seen. Left-sided pelvic phleboliths and other vascular calcifications. IMPRESSION: No acute findings. Mild degenerative changes of the hip. I have personally reviewed the images of this examination and agree with the resident's findings and interpretation. Interpreted by: Jaron Cristobal Preliminary Report By: Blaise Modi Electronically signed By Jaron Cristobal Dictated Date: 07/21/2025 10:56:28 AM Prelim Date: 07/21/2025 11:24:16 AM Sign Date: 07/21/2025 11:24:16 AM Ordering Provider: [facility]06-28-2025 Radiology Diagnostic study note [facility] Imaging Services [address] [place], [place] [address] Pelvis 1 or 2 Views MR#: [id number] Acct: [id number] Name: LEILANI SPANN Rep #: [id number] : 1955 M 69 From: Nneka De La Torre MD PCP: LINDA Sanchez Status: REG ER Study:Pelvis 1 or 2 Views Date of Exam: 05/02/25 Exam# [id number] Ordering Dr: Criselda Boykin MD PROCEDURE: PELVIS 1 OR 2 VIEWS 05/02/2025 REASON FOR EXAM: INJURY/PAIN TECHNIQUE: PELVIS 1 OR 2 VIEWS COMPARISON: None. FINDINGS: Hardware: None. Bones: No acute fracture. No aggressive osseous lesions. Joints: Moderate degenerative changes. soft tissues: Soft tissues are unremarkable. Other: Scattered vascular calcifications and phleboliths. RAD/Pelvis 1 or 2 Views IMPRESSION: NO ACUTE FINDINGS. DEGENERATIVE CHANGES. Reading Location: [facility] CC: [employer]ret Delgado; Dr. Victoriano Boykin MD ~ Television Cameraman: Signed [facility]06-28-2025 Radiology Diagnostic study note [facility] Imaging Services [address] [place] [address] Shoulder min 2 Views MR#: [id number] Acct: [id number] Name: LEILANI SPANN Rep #: [id number] : 1955 M 69 From: Nneka De La Torre MD PCP: LINDA Sanchez Status: REG ER Study:Shoulder min 2 Views Date of Exam: 05/02/25 Exam# [id number] Ordering Dr: Criselda Boykin MD PROCEDURE: SHOULDER MIN 2 VIEWS 05/02/2025 REASON FOR EXAM: INJURY/PAIN TECHNIQUE: SHOULDER MIN 2 VIEWS COMPARISON: None. FINDINGS: Bones: No acute fracture or aggressive osseous lesion. Joints: Normal alignment. Moderate degenerative changes of the glenohumeral andacromioclavicular joints. Soft tissues: Soft tissues are unremarkable. Other: The visualized right lung is unremarkable. RAD/Shoulder min 2 Views IMPRESSION: DEGENERATIVE OSTEOARTHROSIS. NO ACUTE FINDINGS. Reading Location: [facility] CC: LINDA Delgdao; Dr. Victoriano Boykin MD ~ Television Cameraman: Signed [facility]06-28-2025 Discharge summary [facility] Medical Records Department [address] [place] [address] Emergency Department Summary 05/02/25 MR#: [id number] Acct: [id number] Name: LEILANI SPANN Rep #:[id number] : 1955 69 From: Victoriano Boykin MD PCP: LINDA Sanchez Status:REG ER Location: ED HPI History of Present Illness Chief Complaint: Other, Pain/Inj Detail of Chief Complaint: Pain right shoulder, bruising and pain right arm and pain right groin Informant: patient and spouse/S.O. Onset/Context/Timing Onset: Days Context: Sudden Onset Timing: Continuous and Waxes and wanes Quality: Pain right shoulder with click, right arm with bruising and right groin Current Severity: Mild Maximum Severity: Severe Worsened by: The right groin pain is severe with movement Relieved by: Nothing Associated Symptoms Associated Symptoms: Denies paresthesia, anesthesia or motor weakness. 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 He is on no antithrombotic or anticoagulant he complains of pain in his right shoulder. Gets a clicking occasionally with movement. He has no history of direct trauma to his knowledge or recollection he denies paresthesia, anesthesia or motor weakness upper extremity or lower extremity on the right. He denies symptoms ofclaudication right lower extremity. He denies fever, chills night sweats. He has no known history of rheumatoid arthritis or autoimmune. Patient apparently does move objects with his right lower extremity. He may kick something out of the way as well. There is no history of VTE. He has no risk factors for VTE. He has no cardiopulmonary symptoms. Patient has no contraindication to NSAIDs i.e. hypertension, diabetes, renal disease or peptic ulcer disease. Prior similar symptoms: No Recent Illness/Hospitalization: No [facility] Medical History Loose, teeth Cancer Restless legs Back pain Hoarseness History of pain when walking History of edema Acute blood loss anemia Acute UTI Edema of right lower leg Anemia Wears glasses Alcohol use Arthritis Smoker Bladder mass Hearing loss, left Hearing loss, right Home Medications ?Medication ?Instructions ?Recorded ?Last Taken ?Type acetaminophen 500 mg tablet 1,000 mg PO Q6H PRN pain 1 Unknown History (Acetaminophen Extra Strength) ibuprofen 600 mg tablet 600 mg PO Q6H PRN fever or p ain 08/15/24 Unknown Rx #20 tabs ciprofloxacin HCl 500 mg tablet 500 mg PO BID #10 tabs 10/09/24 Unknown Rx (Cipro) phenazopyridine 200 mg tablet 200 mg PO TID 5 days #15 tabs 10/09/24 Unknown Rx (Pyridium) hydrocodone-acetaminophen 5-325mg 1 tab PO Q6H PRN PRN Pain 3 days 05/02/25 Unknown Rx 5mg-325mg #10 TABLETS naproxen 500 mg tablet 500 mg PO BID #10 tabs 05/02 Unknown Rx Allergy/AdvReac Type Severity Reaction Status Date / Time No Known Allergies Allergy Verified 05/02/25 15:55 Surgical History Hx of surgical procedure Hx of surgical amputation of finger Hx of hernia repair History of transurethral resection of bladder tumor (TURBT) Social History (Updated 05/02/25 @ 16:[address] Victoriano Boykin MD) household members: spouse Smoking Status: Light Smoker (<10/day) substance use type: does not use ROS ROS ED Constitutional Constitutional ED: Denies chills, fever(s), subjective, sweats or weight loss Eyes Eyes: Denies blurry vision or change in vision ENT ENT ED: Denies ear pain, rhinorrhea or sore throat Cardiovascular Cardiovascular: Denies chest pain or palpitations Respiratory/Chest Respiratory/Chest: Denies cough, dyspnea or dyspnea on exertion Gastrointestinal Gastrointestinal: Denies abdominal pain, nausea or vomiting Genitourinary Genitourinary ED: Denies dysuria, hematuria or urinary frequency Musculoskeletal Musculoskeletal: Reports other Details: HPI narrative ; Denies arthralgias or myalgias Integumentary Reports other Details: Bruising right arm and swelling ; Denies Abrasions or rash Neurologic Neurologic: Denies paresthesias or weakness Hematologic/Lymphatic Hematologic/Lymphatic: Reports systems reviewed and no addt'l complaints, exceptas documented EXAM Physical Exam Const Vital Signs: 05/02/25 15:53 05/02/25 16:11 Temperature 97.3 F L Temperature Source Oral Pulse Rate 94 Respiratory Rate 18 Respiratory Effort Normal Non-Labored Blood Pressure 154/95 H Blood Pressure Mean 114 Pulse Ox 98 Positive well nourished and well developed Constitutional Narrative: Blood pressure is elevated 154/95. Patient is in obvious discomfort when he attempts to movement complains of pain in his right groin area. General Appearance ED: well developed; Negative for cyanotic, diaphoretic or pallor HEENT Reports moist mucous membranes HEENT Narrative: Head is atraumatic and normocephalic. Ears normal. Nares patent. Posterior pharynx is unremarkable.Patient has multiple missing teeth. Eyes PERRL and EOMs intact bilaterally General Eye ED: Negative for pale conjunctiva or scleral icterus Neck no lymphadenopathy and supple Chest Wall inspection of chest normal and palpation of chest normal Resp normal respiratory effort and clear to auscultation bilaterally Cardio regular rate and regular rhythm GI normal to inspection, nondistended, normoactive bowel sounds, non-tender, non- distended and no masses; Negative for hepatosplenomegaly Narrative: Testes are send bilaterally. No testicular epididymal tenderness. No tenderness of the vas deferens. No evidence of hernia. He has surgical scar onthe right due to prior surgery x 2. There is no angela lymphadenopathy. He has tenderness insertion of the quadricep for Naveen muscle tendon. Having himAB duct against resistance causes no discomfort he has significant pain with abduction against resistance. Tyler Compa 4 test causes minimal discomfort. His discomfort is in the right groin. There is no neurovasc Otomize of the right lower extremity. Examination of the right upper extremity reveals tenderness over the proximal humerus. Passive range of motion causes him discomfort and click was appreciated. He had a negative drop test. He did nothave any pain with abduction past 90 degrees. The right arm is swollen compared to the left. There is bruising noted. Axillary, median, radial and ulnar function intact. Radial pulses 2+. Back/Spine no CVA tenderness Extremity Negative for normal to inspection Extremity Narrative: Described under the portion. Neuro oriented x3, CN's II-XII intact bilaterally and no sensory deficits noted Sensorium / Orientation: alert Motor Exam: strength 5/5 throughout Psych mental status grossly normal Skin no rashes or lesions noted and no wounds General Skin Exam: elasticity normal; Negative for jaundice or pallor MDM MDM MDM Narrative Medical decision making narrative: X-ray of the shoulder was obtained to assess for osteoarthritis versus floating free body versus evidence of prior injury. X-ray of the pelvis was obtained to determine if there is a pull off fracture associated with this quadrant for Naveen muscle injury. He was medicated with IV ketorolac, morphine and Zofran. Radiography Chest X-Ray - ED: 1 View (Single view pelvis view reveals no avulsion fracture at the insertion site of the quadricep for Naveen muscle. This was independent reviewed interpreted by me) and Read by ED Physician (4 view x-ray of the right shoulder reveals some degenerative changes. There is no fracture, subluxation dislocation.) Discharge Plan Triage Chief Complaint: Other, Pain/Inj ED Provider: Victoriano Boykin Dx/Rx/DC Orders Clinical Impression: Osteoarthritis of right shoulder region, Bladder cancer, Injury of right quadriceps femoris muscle,Contusion of right arm, Elevated blood-pressure reading without diagnosis of hypertension Instructions: ED Hypertension, To Be Confirmed, ED Osteoarthritis, ED Muscle Strain, Extremity Prescriptions: New hydrocodone-acetaminophen 5-325 mg tablet 1 tab PO Q6H PRN PRN (Reason: Pain) 3 Days Qty: 10 0RF naproxen 500 mg tablet 500 mg PO BID Qty: 10 0RF No Action acetaminophen [Acetaminophen Extra Strength] 500 mg tablet 1,000 mg PO Q6H PRN (Reason: pain) ibuprofen 600 mg tablet 600 mg PO Q6H PRN (Reason: fever or pain) Qty: 20 0RF ciprofloxacin HCl [Cipro] 500 mg tablet 500 mg PO BID Qty: 10 0RF phenazopyridine [Pyridium] 200 mg tablet 200 mg PO TID 5 Days Qty: 15 0RF Primary Care Provider: Celina Delgado NP Referrals: Celina Delgado NP, [employer] [Primary Care Provider] - 1-2 Weeks Activity Restrictions/Additional Instructions: 1. Avoid activity that causes you pain. 2. Apply ice to your right arm and right groin 6-8 times a day 3. Take pain medicine as needed for pain. 4. Your blood pressure is elevated. Recommend you having it rechecked by your provider in 1 to 2 weeks Print Language: Icelandic Disposition Disposition: Home, Self Care What to do if you have Problems For any increased pain, shortness of breath, bleeding, nausea or vomiting, chestpain, or any unexpected problems, contact your Primary Care Provider. Call [facility] ([phone]) or report tothe closest Emergency Room. Call 911 if necessary. 05/02/25 2861 Cosigner Signature (if applicable): CC: LINDA Delgado ~ Signed [facility]06-28-2025 Discharge summary Author Victoriano Boykin [facility] Note Date/Time May 02, 2025 5:19 pm [facility] Medical Records Department [address] [place] [address] Emergency Department Summary 05/02/25 MR#: [id number] Acct: [id number] Name: LEILANI SPANN Rep #:[id number] : 1955 69 From: Victoriano Boykin MD PCP: JIMMY SanchezC Status:REG ER Location: ED HPI History of Present Illness Chief Complaint: Other, Pain/Inj Detail of Chief Complaint: Pain right shoulder, bruising and pain right arm and pain right groin Informant: patient and spouse/S.O. Onset/Context/Timing Onset: Days Context: Sudden Onset Timing: Continuous and Waxes and wanes Quality: Pain right shoulder with click, right arm with bruising and right groin Current Severity: Mild Maximum Severity: Severe Worsened by: The right groin pain is severe with movement Relieved by: Nothing Associated Symptoms Associated Symptoms: Denies paresthesia, anesthesia or motor weakness. 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 He is on no antithrombotic or anticoagulant he complains of pain in his right shoulder. Gets a clicking occasionally with movement. He has no history of direct trauma to his knowledge or recollection he denies paresthesia, anesthesia or motor weakness upper extremity or lower extremity on the right. He denies symptoms ofclaudication right lower extremity. He denies fever, chills night sweats. He has no known history of rheumatoid arthritis or autoimmune. Patient apparently does move objects with his right lower extremity. He may kick something out of the way as well. There is no history of VTE. He has no risk factors for VTE. He has no cardiopulmonary symptoms. Patient has no contraindication to NSAIDs i.e. hypertension, diabetes, renal disease or peptic ulcer disease. Prior similar symptoms: No Recent Illness/Hospitalization: No PFSH PFS Medical History Loose, teeth Cancer Restless legs Back pain Hoarseness History of pain when walking History of edema Acute blood loss anemia Acute UTI Edema of right lower leg Anemia Wears glasses Alcohol use Arthritis Smoker Bladder mass Hearing loss, left Hearing loss, right Home Medications ?Medication ?Instructions ?Recorded ?Last Taken ?Type acetaminophen 500 mg tablet 1,000 mg PO Q6H PRN pain 1 Unknown History (Acetaminophen Extra Strength) ibuprofen 600 mg tablet 600 mg PO Q6H PRN fever or p ain 08/15/24 Unknown Rx #20 tabs ciprofloxacin HCl 500 mg tablet 500 mg PO BID #10 tabs 10/09/24 Unknown Rx (Cipro) phenazopyridine 200 mg tablet 200 mg PO TID 5 days #15 tabs 10/09/24 Unknown Rx (Pyridium) hydrocodone-acetaminophen 5-325mg 1 tab PO Q6H PRN PRN Pain 3 days 05/02/25 Unknown Rx 5mg-325mg #10 TABLETS naproxen 500 mg tablet 500 mg PO BID #10 tabs 05/02 Unknown Rx Allergy/AdvReac Type Severity Reaction Status Date / Time No Known Allergies Allergy Verified 05/02/25 15:55 Surgical History Hx of surgical procedure Hx of surgical amputation of finger Hx of hernia repair History of transurethral resection of bladder tumor (TURBT) Social History (Updated 05/02/25 @ 16:[address] Victoriano Boykin MD) household members: spouse Smoking Status: Light Smoker (<10/day) substance use type: does not use ROS ROS ED Constitutional Constitutional ED: Denies chills, fever(s), subjective, sweats or weight loss Eyes Eyes: Denies blurry vision or change in vision ENT ENT ED: Denies ear pain, rhinorrhea or sore throat Cardiovascular Cardiovascular: Denies chest pain or palpitations Respiratory/Chest Respiratory/Chest: Denies cough, dyspnea or dyspnea on exertion Gastrointestinal Gastrointestinal: Denies abdominal pain, nausea or vomiting Genitourinary Genitourinary ED: Denies dysuria, hematuria or urinary frequency Musculoskeletal Musculoskeletal: Reports other Details: HPI narrative ; Denies arthralgias or myalgias Integumentary Reports other Details: Bruising right arm and swelling ; Denies Abrasions or rash Neurologic Neurologic: Denies paresthesias or weakness Hematologic/Lymphatic Hematologic/Lymphatic: Reports systems reviewed and no addt'l complaints, exceptas documented EXAM Physical Exam Const Vital Signs: 05/02/25 15:53 05/02/25 16:11 Temperature 97.3 F L Temperature Source Oral Pulse Rate 94 Respiratory Rate 18 Respiratory Effort Normal Non-Labored Blood Pressure 154/95 H Blood Pressure Mean 114 Pulse Ox 98 Positive well nourished and well developed Constitutional Narrative: Blood pressure is elevated 154/95. Patient is in obvious discomfort when he attempts to movement complains of pain in his right groin area. General Appearance ED: well developed; Negative for cyanotic, diaphoretic or pallor HEENT Reports moist mucous membranes HEENT Narrative: Head is atraumatic and normocephalic. Ears normal. Nares patent. Posterior pharynx is unremarkable. Patient has multiple missing teeth. Eyes PERRL and EOMs intact bilaterally General Eye ED: Negative for pale conjunctiva or scleral icterus Neck no lymphadenopathy and supple Chest Wall inspection of chest normal and palpation of chest normal Resp normal respiratory effort and clear to auscultation bilaterally Cardio regular rate and regular rhythm GI normal to inspection, nondistended, normoactive bowel sounds, non-tender, non-distended and no masses; Negative for hepatosplenomegaly Narrative: Testes are send bilaterally. No testicular epididymal tenderness. No tenderness of the vas deferens. No evidence of hernia. He has surgical scar onthe right due to prior surgery x 2. There is no angela lymphadenopathy. He has tenderness insertion of the quadricep for Naveen muscle tendon. Having him AB duct against resistance causes no discomfort he has significant pain with abduction against resistance. Tyler Compa 4 test causes minimal discomfort. His discomfort is in the right groin. There is no neurovasc Otomize of the right lower extremity. Examination of the right upper extremity reveals tenderness over the proximal humerus. Passive range of motion causes him discomfort and click was appreciated. He had a negative drop test. He did not have any pain with abduction past 90 degrees. The right arm is swollen compared to the left. There is bruising noted. Axillary, median, radial and ulnar function intact. Radial pulses 2+. Back/Spine no CVA tenderness Extremity Negative for normal to inspection Extremity Narrative: Described under the portion. Neuro oriented x3, CN's II-XII intact bilaterally and no sensory deficits noted Sensorium / Orientation: alert Motor Exam: strength 5/5 throughout Psych mental status grossly normal Skin no rashes or lesions noted and no wounds General Skin Exam: elasticity normal; Negative for jaundice or pallor MDM MDM MDM Narrative Medical decision making narrative: X-ray of the shoulder was obtained to assess for osteoarthritis versus floating free body versus evidence of prior injury. X-ray of the pelvis was obtained to determine if there is a pull off fracture associated with this quadrant for Naveen muscle injury. He was medicated with IV ketorolac, morphine and Zofran. Radiography Chest X-Ray - ED: 1 View (Single view pelvis view reveals no avulsion fracture at the insertion site of the quadricep for Naveen muscle. This was independent reviewed interpreted by me) and Read by ED Physician (4 view x-ray of the right shoulder reveals some degenerative changes. There is no fracture, subluxation dislocation.) Discharge Plan Triage Chief Complaint: Other, Pain/Inj ED Provider: Victoriano Boykin Dx/Rx/DC Orders Clinical Impression: Osteoarthritis of right shoulder region, Bladder cancer, Injury of right quadriceps femoris muscle, Contusion of right arm, Elevated blood-pressure reading without diagnosis of hypertension Instructions: ED Hypertension, To Be Confirmed, ED Osteoarthritis, ED Muscle Strain, Extremity Prescriptions: New hydrocodone-acetaminophen 5-325 mg tablet 1 tab PO Q6H PRN PRN (Reason: Pain) 3 Days Qty: 10 0RF naproxen 500 mg tablet 500 mg PO BID Qty: 10 0RF No Action acetaminophen [Acetaminophen Extra Strength] 500 mg tablet 1,000 mg PO Q6H PRN (Reason: pain) ibuprofen 600 mg tablet 600 mg PO Q6H PRN (Reason: fever or pain) Qty: 20 0RF ciprofloxacin HCl [Cipro] 500 mg tablet 500 mg PO BID Qty: 10 0RF phenazopyridine [Pyridium] 200 mg tablet 200 mg PO TID 5 Days Qty: 15 0RF Primary Care Provider: Celina Delgado NP Referrals: Celina Delgado NP, [employer] [Primary Care Provider] - 1-2 Weeks Activity Restrictions/Additional Instructions: 1. Avoid activity that causes you pain. 2. Apply ice to your right arm and right groin 6-8 times a day 3. Take pain medicine as needed for pain. 4. Your blood pressure is elevated. Recommend you having it rechecked by your provider in 1 to 2 weeks Print Language: Icelandic Disposition Disposition: Home, Self Care What to do if you have Problems For any increased pain, shortness of breath, bleeding, nausea or vomiting, chestpain, or any unexpected problems, contact your Primary Care Provider. Call [facility] ([phone]) or report to the closest Emergency Room. Call 911 if necessary. 05/02/25 8575 <Electronically signed by Victoriano Boykin MD> Cosigner Signature (if applicable): CC: [employer] Celina Baltes ~ Paul [facility] Work Phone: 1(167) 669-304706-28-2025 Hospital Discharge instructionsAdditional Instructions 1. Avoid activity that causes you pain. 2. Apply ice to your right arm and right groin 6-8 times a day 3. Take pain medicine as needed for pain. 4. Your blood pressure is elevated. Recommend you having it rechecked by your provider in 1 to [facility] Work Phone: 1(464) 101-718612-05-2024 [facility] Medical Records Department [address] [place] [address] Discharge Summary 10/09/24719 MR#: [id number] Acct: [id number] Name: LEILANI SPANN Rep #: [id number] : 1955 69 From: Freddie Acevedo MD PCP: LINDA Sanchez Status:ADM IN Location: [place] [address] Providers Date of Admission: 10/06/24 Date of [...] - Active Staff] - Celina Delgado NP, NP-C [Primary Care Provider] - 10/09/24 0721 Cosigner Signature (if applicable): CC: LINDA Delgado; Dr. Freddie Acevedo MD [facility]igned[facility]2024 [facility] Medical Records Department [address] [place] [address] History Physical Exam 10/07/24 0744 MR#: [id number] Acct: [id number] Name: LEILANI SPANN Rep #: [id number] : 1955 69 From: Freddie Acevedo MD PCP: LINDA Sanchez Status:ADM IN Location: [address] HPI - General General Date of Admission: 10/06/24 Date of Service: 10/06/24 Chief Complaint: Bladder pain HPI Narrative LEILANI SPANN, is a 69 M who presents to the hospital with severe bladder pain he has been getting treatments for bladder cancer with Mitomycin-C presented with frequency and urgency will admit the patient for control of pain probably start him on a steroid drip and antibiotics [facility] Medical History Loose, teeth Cancer Restless legs [...] 78.2 H, Lymph % (Auto) 8.9 L, [place] % (Auto) 7.9, Eos % (Auto) 3.9, [...] Clarity Turbid, Urine pH 6.0, Ur Specific [place] 1.025, Urine Protein 500 H, Urine Glucose (UA) Normal, Urine Ketones 5 H, Urine Occult Blood 250 H, Urine Nitrite Positive H, Urine Bilirubin Negative, Urine Urobilinogen Normal, Ur Leukocyte Esterase 100 H, Urine RBC > 100 SEEN, Urine WBC 10-25 SEEN, Ur Squamous Epith Cells 0 SEEN, Urine Bacteria 4+, Urine Mucus 0 SEEN 10/07/24 0744 Cosigner Signature (if applicable): CC: LINDA Delgado; Dr. Freddie Acevedo MD [facility] Discharge summary Author [facility] November 29, 2023 1:24pm Note Date/Time November 29, 2023 1 :24pm [facility] Medical Records Department [address] [place] [address] Instructions for Home/Discharge Instructions 11/29/23 1322 MR#: [id number] Acct: [id number] Name: LEILANI SPANN Rep #:[id number] : 1955 68 From: Breann Graham MD [...] be discussed in further detail at your follow- up appointment, if applicable. Discharge Plan Admission Admit [...] - Within 1 Week Celina Delgado NP, LINDA [Primary Care Provider] - Within 2 Weeks Disposition Disposition (needs filled in before D/C Order can be placed): Home, Self Care 11/29/23 1324<Electronically signed by Breann Graham MD>Breann Graham MD CC: [employer] Celina Delgado; Dr. Ervin Anderson DO; Dr. Freddie Acevedo MD ~ Signed [facility] Work Phone: 1(717) 958-798101-25-2024 Discharge summary Author [facility] November 29, 2023 3:41pm Note Date/Time November 29, 2023 1 :24pm [facility] Medical Records Department [address] [place] [address] Discharge Summary 11/29/23 1324 MR#: [id number] Acct: [id number] Name: LEILANI SPANN Rep #:[id number] : 1955 68 From: Breann Graham MD PCP: LINDA Sanchez Status:ADM IN Location: [facility] [id number]- 1 Providers Date of Admission: 11/26/23 Date [...] started noticing he was having hematuria around [place] and went to an outside hospital ED [...] (Auto) 66.1, Lymph % (Auto) 15.0 L, [place] % (Auto) 11.3 H, Eos % (Auto) 5.6 H, Baso % (Auto) 1.4 H, Absolute Neuts (auto) 4.4, Absolute Lymphs (auto) 1.00, Nucleated RBC % 0, Anisocytosis 2+, Sodium 137, Potassium 4.2, Chloride 112 H, Carbon Dioxide 24.0, Anion Gap 1 L, BUN 17, Creatinine 0.85, Estim Creat Clear Calc 85.51, Est GFR (MDRD) Af [id number], Est GFR (MDRD) Non-Af 96, BUN/Creatinine Ratio [...] - Within 1 Week Celina Delgado NP, [employer] [Primary Care Provider] - Within 2 Weeks Disposition Disposition (needs filled in before D/C Order can be placed): Home, Self Care Charges/Coding Visit Charges Inpatient E&M: 71153 Disch Hosp >30min 11/29/23 1541 <Electronically signed by Breann Graham MD> Cosigner Signature (if applicable): CC: LINDA Delgado; Dr. Breann Graham MD~ Signed [facility] Work Phone: 1(458) 853-719801-24-2024 Progress note Author Breann [facility] November 28, 2023 3:29pm Note Date/Time November 28, 2023 1 0:30am [facility] Medical Records Department [address] [place] [address] Progress Note 11/28/23 1026 MR#: [id number] Acct: [id number] Name: LEILANI SPANN Rep #:[id number] : 1955 68 From: Breann Graham MD [...] / 50 Output Total 1150 / 1150 20453 / 06122 3000 / 3000 Balance -222.50 / -222.50 -64100 / -90148 -2950 / -2950 Lab / Micro Data [...] (Auto) 62.3, Lymph % (Auto) 18.3 L, [place] % (Auto) 12.3 H, Eos % (Auto) [...] prophylaxis: SCDs Charges/Coding Visit Charges Inpatient E&M: 16038 Subs Hosp L2 11/28/23 1529 <Electronically signed by Breann Graham MD> Breann Graham MD Cosigner Signature (if applicable): CC: ~ Signed [facility] Work Phone: 1(484) 159-294501-24-2024 Consult note Author Freddie Acevedo [facility] November 28, 2023 8:13am Note Date/Time November 28, 2023 8 :11am [facility] Medical Records Department [address] [place] [address] Consultation 11/28/23 0810 MR#: [id number] Acct: [id number] Name: LEILANI SPANN Rep #:[id number] : 1955 68 From: Freddie Acevedo MD [...] Acevedo MD> Cosigner Signature (if applicable): CC: INSTRUCTOR HAIRSPRINGDeann Delgado; Dr. Ervin Anderson DO; Dr. Freddie Acevedo MD~ Signed ADDENDUM by Dr. Freddie Acevedo MD on 11/28/23 at 0813 Addendum Currently on ceftriaxone urine culture from the catheter is positive for Staphylococcus awaiting sensitivities 11/28/23 0813<Electronically signed by Freddie Acevedo MD> Cosigner Signature (if applicable): cc: [employer]-Bret Delgado; Dr. Ervin Anderson DO; Dr. Freddie Acevedo MD ~* Signed [facility] Work Phone: 1(111) 157-346301-23-2024 Progress note Author Breann [facility] November 27, 2023 3:51pm Note Date/Time November 27, 2023 3 :42pm [facility] Medical Records Department [address] [place] [address] Progress Note 11/27/23 1539 MR#: [id number] Acct: [id number] Name: LEILANI SPANN Rep #:[id number] : 1955 68 From: Breann Graham MD [...] 23:59 23:59 Intake Total 927.50 / 927.50 2069 / 2069 Output Total 1150 / 1150 96070 / 45567 Balance -222.50 / -222.50 -9980 / -9980 [...] prophylaxis: SCDs Charges/Coding Visit Charges Inpatient E&M: 29787 [facility] Hosp L3 11/27/23 1551 <Electronically signed by Breann Graham MD> Breann Graham MD Cosign Signature (if applicable): CC: ~ Signed [facility] Work Phone: 1(404) 744-609401-23-2024 Procedure [facility] 11-26-2023 History and physical note Author Ervin Anderson [facility] November 26, 2023 3:00pm Note Date/Time November 26, 2023 1 :09pm [facility] Medical Records Department [address] [place] [address] H&P Exam - Hospitalist 11/26/23 1307 MR#: [id number] Acct: [id number] Name: LEILANI SPANN Rep #:[id number] : 1955 68 From: Ervin armstrong DO PCP: LINDA Sanchez Status:ADM IN Location: ICU CVICU20 4-1 HPI - General General Date of Admission: 11/26/23 Date of Service: 11/26/23 Chief Complaint: Worsening fatigue and weakness HPI Narrative LEILANI SPANN, is a 68 M who presented to [facility] ED on 11/26/2023 with worsening fatigue and weakness. Patient seen at bedside in the ED, present. Patient has known history of bladder cancer, follows with in the office. Was diagnosed with bladder cancer back in 2020. Was determined to be a slow- growing bladder cancer at that time, no intervention required to this point. However, patient began noticing worsening hematuria around [place] time and went to the [facility] ED for further evaluation. He hada [...] than his baseline. 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 However [...] He otherwise has no acute concerns today. [facility] Medical History (Updated 11/26/23 @ 14:[address] Ervin Anderson, DO) Alcohol use Arthritis Hearing loss, left [...] History (Updated 05/26/21 @ 15:13 by Faustino Dial) Smoking Status: Light Smoker (<10/day) ROS Constitutional [...] % (Auto) 59.0, Lymph % (Auto) 20.6, [place] % (Auto) 13.2 H, Eos % (Auto) 6.0 H, Baso % (Auto) 1.0, Absolute Neuts (auto) 2.9, Absolute Lymphs (auto) 1.03, Nucleated RBC % 0.4, Diff Path Review May , Hypochromasia 3+, Anisocytosis 2+, Tear Drop Cells [...] is a 68-year-old male who presented to [facility] ED on 11/26/2023 with worsening fatigue and [...] of DVT/PE ? Patient reports history of "abdominal clots" around the time of his bladder cancer diagnosis in 2020. States he was on Eliquis for about 1 year, has been off anticoagulation since then. Notably does have right lower extremity swelling worse than left on admit, but venous Doppler study was negative for DVT. 4. BPH with obstructive symptoms, recent episode of urinary retention requiringFoley catheter placement ? ED visit at [facility] at end of October for inability to [...] 55 minutes. Charges/Coding Visit Charges Inpatient E&M: 69326 Init Hosp L2 11/26/23 1500 <Electronically signed by Ervin Anderson DO> Cosigner Signature (if applicable): CC: LINDA Delgado; Dr. Ervin Anderson DO~ Signed [facility] Work Phone: 1(178) 533-873601-22-2024 Discharge summary Author Jaron Nuñez [facility] November 26, 2023 2:49pm Note Date/Time November 26, 2023 1 1:22am [facility] Medical Records Department [address] [place] [id number] Emergency Department Summary 11/26/23 MR#: [id number] Acct: [id number] Name: LEILANI SPANN Rep #:[id number] : 1955 68 From: Susana WERNER PCP: [...] every day. He saw Dr. Acevedo after who replaced the Slater but hestill has the same issue. Over the last [...] necessarily painful. He has a history of "abdominal blood clots" and was on Eliquis for this in the pastbut no history of extremity DVT. [facility] <DEBBI Nunez - Last Filed: 11/26/23 14:31> [facility] Medical History (Updated 11/26/23 @ 14:31 by DEBBI uNnez) Alcohol use Arthritis Hearing loss, left Hearing [...] Oxygen Delivery Method Room Air <Dr. Jaron Nuñez, DO - Last Filed: 11/26/23 14:06> Physical Exam Const Vital Signs: 11/26/23 10:57 11/26/23 11:31 Temperature 97.9 F Temperature Source Temporal Pulse Rate 101 H Respiratory Rate 24 H Respiratory Effort Short of Breath Respiratory Pattern Normal Blood Pressure 138/66 H Blood Pressure Mean 90 Pulse Ox 100 Oxygen Delivery Method Room Air MDM <DEBBI Nunez - Last Filed: 11/26/23 14:31> MDM MDM Narrative Medical decision making narrative: [...] % (Auto) 59.0 Lymph % (Auto) 20.6 [place] % (Auto) 13.2 H Eos % (Auto) [...] Clarity Turbid Urine pH 6.5 Ur Specific [place] 1.015 Urine Protein 500 H Urine Glucose [...] Nuñez, DO - Last Filed: 11/26/23 14:06> MDM MDM Narrative Medical decision making narrative: [...] % (Auto) 59.0 Lymph % (Auto) 20.6 [place] % (Auto) 13.2 H Eos % (Auto) [...] Clarity Turbid Urine pH 6.5 Ur Specific [place] 1.015 Urine Protein 500 H Urine Glucose [...] Management Discussion w/another healthcare provider: Hospitalist and Rn Documentation Specialist (Urology) Discharge Plan Dx/Rx/DC Orders Clinical Impression: Anemia, Gross hematuria, Bladder mass, Edema of right lower leg, Acute UTI Disposition Disposition: [facility] Discharge Date/Time: 11/26/23 14:03 What to do if you have Problems For any increased pain, shortness of breath, bleeding, nausea or vomiting, chestpain, or any unexpected problems, contact your Primary Care Provider. Call [facility] ([phone]) or report to the closest Emergency Room. Call 911 if necessary. 11/26/23 1431 <Electronically signed by Susana WERNER> Cosigner Signature (if applicable): 11/26/23 1449 <Electronically signed by Jaron Nuñez DO> CC: LINDA Delgado ~ Signed [facility] Work Phone: 1(518) 692-117601-22-2024 Consult note Author Freddie Acevedo [facility] November 26, 2023 1:10pm Note Date/Time November 26, 2023 1 :10pm [facility] Medical Records Department [address] [place] [address] [place] [address] Consultation - Urology 11/26/23 1309 MR#: [id number] Acct: [id number] Name: LEILANI SPANN Rep #:[id number] : 1955 68 From: Freddie Acevedo MD PCP: LINDA Sanchez Status:REG ER Location: ED HPI Consult Data Date of Consult: 11/26/23 HPI Narrative Reason for Consultation: bleeding bladder mas HPI Narrative: LEILANI SPANN, is a 68 M who know to have bladder mass presents with low Hct admitted to hospitalist for anemia acute, plan to do surgery TURBT of bladder mass on Sunday. [facility] Medical History (Updated 11/26/23 @ 12:14 by [...] Social History (Updated 05/26/21 @ 15:13 by Fausitno Munoz) Smoking Status: Light Smoker (<10/day) Lab [...] % (Auto) 59.0, Lymph % (Auto) 20.6, [place] % (Auto) 13.2 H, Eos % (Auto) [...] LINDA Delgado; Dr. Freddie Acevedo MD~ Signed [facility] Work Phone: 1(158) 190-596312-28-2023 Note. MICRO - Microbiology PROCEDURE: Urine Culture [...] Locations *1: This test was performed at: [facility], [address] [place] [address], [id number]- , [facility] ([place])10-29-2023 Hospital Discharge instructions Patient Education 10/29/2023 17:53:48 [...] to keep medicine down Weakness or dizziness [id number] [employer]. [address] [place] [address]. All rights reserved. This information is not [...] for 6 hours Weakness, dizziness, or fainting [phone] [employer]. [address] [place] [address]. All rights reserved. This information is not intended as a substitute for professional medical care. Always follow yourhealthcare professional's instructions. Follow Up Care 10/29/2023 16:44:06 With:FREDDIE ACEVEDO MD, Roomer Travel Address: [address] [place] [phone]- [phone] When:2-4 days [facility] 12-25-2023 Emergency department Discharge summary Discharge Instructions Thank you for allowing [facility] to assist you with your healthcare needs. The following is importantdischarge information regarding your hospital visit. Diagnosis from Today's Visit Urinary retention What to Do Next Instructions from Your Care Team No qualifying data available. Post Acute Orders No qualifying data available. You Need to Schedule the Following Appointments Follow Up with FREDDIE ACEVEDO MD, Roomer Travel When Within 2-4 days Where: [address] [place] [phone]- [phone] Allergies NKA Medications Please ask your primary [...] to keep medicine down Weakness or dizziness [phone] [employer] [place], [place] [id number]. All rights reserved. This information is not [...] for 6 hours Weakness, dizziness, or fainting [phone] [employer]. [address] [place] [address]. All rights reserved. This information is not intended as a substitute for professional medical care. Always follow yourhealthcare professional's instructions. Additional Information VACCINATE! IT SAVES LIVES! Members of the community who have not yet received the COVID-19 vaccine and would like to receive it can visit one of [facility] vaccine clinics. There are many vaccine clinic locations within the [facility]. For locations and available times, please visit [email or web address] It is important to note that some COVID mobile vaccine clinics are held outdoors and may be canceled in rainy or stormy conditions. To learn more about pediatric vaccinations (ages 5-11), we invite you to visit the [facility] webpage. [email or web address]/[email or web address] learn more about the COVID-19 vaccine, we invite you to visit the CDC website for a list of frequently asked questions. https://www.cdc.gov/coronavirus/2019-ncov/vaccines/faq.html [facility] Patient Portal Access Instructions: Stay connected with your healthcare team and access your personal medical information anytime with the [facility] Patient Portal. If you would like a full copy of your medical records please contact the [facility] Medical Records Department Sunday through Sunday between 8a.m. and 4:30p.m. Please follow the directions below to access the portal: 1.Access the email account you provided upon registration to the [facility].2.Look for an invitation email from [facility].3.Open the email and access the invitation link: Accept Invitation to [facility]4.Fill in the required tierney to create your account. Sign into [email or web address] with your username and password that you [...] you will allow to register on the [facility] Patient Portal for access to your information. You can also access the [facility] Patient Portal on the [employer]. Simply click on "Health Records" under "HealthData" and then click on the [facility] logo. [...] Call your local pharmacy or go to [email or web address] to find one close to you.3.Make use of household items: Use cat litter or old coffee grounds to dispose medications if other options arenot available. Mix your drugs with these household products, seal them in an airtight container andthrow it into the garbage. Call [facility]: [phone] to be sure your drugs can be [...] reviewed and explained to me and I,LEILANI SPANN understand my current condition and have read and understand these discharge instructions. I have received a written copy of the plan/instructions. If I have questions, I am aware that I should contact my doctor. 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 Signature: Date/Time: Relationship to Patient: Witness Name/Signature: Date/Time: [facility]12-25-2023 Evaluation + Plan note Diagnostic Tests Pending * Urine Culture 10/29/23 [facility] Consult note Author Julieta Balderas [facility] November 29, 2023 2:36pm Note Date/Time November 29, 2023 2 :36pm [facility] Medical Records Department [address] [place] [address] Counseling Note - Pharmacy 11/29/23 1435 MR#: [id number] Acct: [id number] Name: LEILANI SPANN Rep #:[id number] : 1955 68 From: Julieta Balderas PCP: LINDA Sanchez Status:ADM IN Y Location: [place] [address] Pharmacy [facility] Service has performed discharge medication [...] tab PO BIDCM #8 tabs 11/29/23 11/29/23 1436 <Electronically signed by Julieta Balderas> Date _ Julieta Balderas Cosigner Signature (if applicable): Date CC: ~ Signed [facility] Work Phone: Evaluation + Plan note No data available for this section [facility] Evaluation + Plan note Future Appointments Appointment Date:07/22/2025 07:00:00 AM Scheduled Provider:CELINA DELGADO APRN-CUSTOM CAR BUILDER Location:[facility] Appointment Type:PC OV Future Scheduled Tests Laboratory* C-Reactive Protein 10/15/24 * Prostate Specific Antigen 02/04/25 * Complete Blood Count 10/15/24 * Complete Blood Count 02/04/25 * Lipid Profile 02/04/25 * Sedimentation Rate Automated 10/15/24 * Complete Metabolic Panel 02/04/25 [facility] Evaluation + Plan note Future Appointments Appointment Date:09/04/2025 08:30:00 AM Scheduled Provider:CELINA DELGADO Location:[facility] Appointment Type:PC OV Pre Op Future Scheduled Tests Laboratory* C-Reactive Protein 10/15/24 * Prostate Specific Antigen 02/04/25 * Complete Blood Count 10/15/24 * Complete Blood Count 02/04/25 * Lipid Profile 02/04/25 * Sedimentation Rate Automated 10/15/24 * Complete Metabolic Panel 02/04/25 Radiology* XR Spine Lumbar AP/LAT 07/24/25 [facility] Evaluation noteNo assessment information available [facility] Work Phone: Evaluation note* Diagnosis Onset Date Resolution Status Acute blood loss anemia acut e Acute UTI acute Anemia acute Bladder mass acute Edema of right lower leg acu te Gross hematuria acute [facility] Work Phone: Hospital Discharge instructions No data available for this section [facility] Progress note No data available for this section [facility] Reason for referral (narrative)No reason for referral [facility] Work Phone: Advance Directives No Advanced Directives Records Found Advance Directive Response Recorded Date/ Time Living Will No May 26, 2021 2:58pm Power of Drainage Engineer No May 26 2:58pm Advance Directive Response Recorded Date/ Time Living Will No May 26, 2021 1:58pm Power of Drainage Engineer No May 26 1:58pm Advance Directive Response Recorded Date/ Time Living Will No November 26 2:05pm Power of Drainage Engineer No November 26, 2023 2:05pm Advance Directive Response Recorded Date/ Time Do you have a Healthcare Power of Drainage Engineer? No May 02, 2025 4:11pm Advance Directive Response Recorded Date/ Time Do you have a Healthcare Power of Drainage Engineer? No August 19, 2025 2:08pm Do you have a Healthcare Power of Drainage Engineer? No August 31, 2025 12:27pm Chief Complaint and Reason for Visit Chief [...] Edema of right lower leg Gross hematuria Chief Complaint Admit Date other pain May 02, 2025 3:53 pm Chief Complaint Admit Date L HIP AND LEG August 19, 2025 2 :03pm BACK August 31, 2025 1 0:46am Summary Purpose Family History No Family History Records Found Additional Source Comments Care Team (unrecognized sect ion and content) Team Status: Active Member Role Status Dates Celina Delgado INSTRUCTOR HAIRSPRING, INSTRUCTOR HAIRSPRING-C Primary Care Provider Active Team Status: Active Member Role Status Dates Celina Delgado INSTRUCTOR HAIRSPRING, INSTRUCTOR HAIRSPRING-C Primary Care Provider Active Dr. Jaron Nuñez , Emergency Provider Active Dr. Freddie Acevedo MD Other Provider Active Dr. Ervin Anderson , DO Admit Provi anisa, Attending Provider, Other Provider Active Team Status: Active Member Role Status Dates Celina Delgado INSTRUCTOR HAIRSPRING, INSTRUCTOR HAIRSPRING-C Primary Care Provider Active Dr. Dennis Delatorre MD Attending Provider Active Team Status: Active Member Role Status Dates Celina Delgado INSTRUCTOR HAIRSPRING, INSTRUCTOR HAIRSPRING-C Primary Care Provider Active Dr. Jaron Nuñez DO Emergency Provider Active Dr. Ervin Anderson , DO Admit Provider, Other Pro vider Active Dr. Freddie Acevedo MD Other Provider Active Dr. Breann Graham MD Attending Provider, Other Prov ider Active Team Status: Active Member Role Status Dates Celina Delgado INSTRUCTOR HAIRSPRING, INSTRUCTOR HAIRSPRING-C Primary Care Provider Active Dr. William Nicole MD Attending Provider Active Dr. Freddie Acevedo MD Referring Provider Active Team Status: Inactive Member Role Status Dates Celina Delgado INSTRUCTOR HAIRSPRING, INSTRUCTOR HAIRSPRING-C Primary Care Provider Active Dr. Freddie Acevedo MD Attending Provider, Referr ing Provider Active Team Status: Inactive Member Role Status Dates Celina Delgado INSTRUCTOR HAIRSPRING, INSTRUCTOR HAIRSPRING-C Primary Care Provider Active Dr. Jaron Nuñez DO Emergency Provider Active Dr. Ervin Anderson DO Admit Provider, Other Pro vider Active Dr. Freddie Acevedo MD Other Provider Active Dr. Breann Graham MD Attending Provider Active Team Status: Active Member Role/Relationship Status Dates Celina Delgado INSTRUCTOR HAIRSPRING, INSTRUCTOR HAIRSPRING-C Primary Care Provider Active Team Status: Inactive Member Role/Relationship Status Dates Celina Delgado INSTRUCTOR HAIRSPRING, INSTRUCTOR HAIRSPRING-C Primary Care Provider Active Start: May 02, 2025 End: May 02, 2025 Dr. Victoriano Boykin MD Referring Provider Active Sta rt: May 02, 2025 End: May 02, 2025 Dr. Victoriano Boykin MD Emergency Provider Active Sta rt: May 02, 2025 End: May 02, 2025 Team Status: Active Member Role/Relationship Status Dates Celina Delgado INSTRUCTOR HAIRSPRING, INSTRUCTOR HAIRSPRING-C Primary care physician Active Team Status: Inactive Member Role/Relationship Status Dates Celina Delgado INSTRUCTOR HAIRSPRING, INSTRUCTOR HAIRSPRING-C Primary care physician Active Start: August 19, 2025 End: August 19, 2025 Dr. Victoriano Boykin MD Attending physician Active St art: August 19, 2025 End: August 19, 2025 Dr. Victoriano Boykin MD Emergency Department Physician Acti ve Start: August 19, 2025 End: August 19, 2025 Team Status: Inactive Member Role/Relationship Status Dates Celnia Delgado INSTRUCTOR HAIRSPRING, INSTRUCTOR HAIRSPRING-C Primary care physician Active Start: August 31, 2025 End: August 31, 2025 Dr. Vahe Mullen MD Emergency Depart ment Physician Active Start: August 31, 2025 End: August 31, 2025 Goals (unrecognized section and content) Goals may be documented in a n alternate section (unrecognized sect ion and content) No Status Records FoundNo Status Records FoundNo Status Records FoundNo Status Records Found INFORMATION SOURCE (unrecogn ized section and content) DATE CREATED AUTHOR 02/07/2024 [facility] ([place]) DATE CREATED AUTHOR AUTHOR'S ORGANIZ ATION 09/11/2025 [facility] DATE CREATED AUTHOR AUTHOR'S ORGANIZ ATION 09/12/2025 [facility] DATE CREATED AUTHOR AUTHOR'S ORGANIZ ATION 09/16/2025 [facility] nter FOR RECORDS PERTAINING TO PATIENTS WHO ARE [...] BE BASED ON THE PRIMARY CLINICAL RECORDS. [facility] [employer] provides no warranty or guarantee of the accuracy or completeness of information in this document.
--- NOTE | 2025-09-19 07:36 | EDS_ITS ---
HPI History of Present Illness Chief Complaint: Back Narrative Narrative: Patient is a 70-year-old male with past medical history of alcohol use, status post lumbar fusion with Merissa Botello on 09/13/2025. According to the who provides a majority of history of present illness she states that he had back surgery on Sunday originally where they went in and shaved some bone down away from the nerve roots however he progressively worsened into the weekend and then had fusion performed. States that he went home on Sunday from [facility] and notes that he had been doing well given that he just had surgery however yesterday and today has had severe lower extremity pain and muscle spasms. She states that he is also having left lower extremity swelling compared to the right states that he is on oxycodone, muscle relaxers and they recently put him on a steroid taper pack. [facility] Medical History Loose, teeth Cancer Restless legs Back pain Hoarseness History of pain when walking History of edema Acute blood loss anemia Acute UTI Edema of right lower leg Anemia Wears glasses Alcohol use Arthritis Smoker Bladder mass Hearing loss, left Hearing loss, right Home Medications Medication Instructions Recorded Last Taken Type acetaminophen 500 mg tablet 1,000 mg PO Q6H PRN pain 1 Unknown History (Acetaminophen Extra Strength) cyclobenzaprine 10 mg tablet 10 mg PO TID 09/19/25 Unk nown History duloxetine 30 mg capsule,delayed 30 mg PO DAILY Unknown History release methylprednisolone 4 mg tablets in 4 mg PO DAILY 09/19 Unknown History a dose pack oxycodone-acetaminophen 5 mg-325 2 tab PO Q4H PRN 09/0509/19/25 06:00 History mg tablet sennosides 8.6 mg capsule (senna) 8.6 mg PO DAILY 09/05 03/29 Unknown History valsartan 80 mg tablet 80 mg PO DAILY 09/19/25 Unkn own History Allergy/AdvReac Type Severity Reaction Status Date / Time No Known Allergies Allergy Verified 09/19/25 06:44 Surgical History Hx of surgical procedure Hx of surgical amputation of finger Hx of hernia repair History of transurethral resection of bladder tumor (TURBT) Social History household members: spouse Smoking Status: Light Smoker (<10/day) substance use type: does not use ROS ROS ED ROS Narrative Constitutional: Denies any fevers, headaches, lightness, dizziness Eyes: Denies double vision Cardiovascular: Denies chest pain Respiratory: Denies shortness of breath Abdomen: Denies any abdominal pain nausea vomiting diarrhea states that he is having bowel movements but is slightly constipated : Denies any urinary symptoms states that he is urinating normally formed self Neurological: Complains of left leg weakness denies any other numbness or tingling Musculoskeletal: States that he does have back pain but this is minimal Skin: Denies any rashes or lesions states that his surgical incision is healing well EXAM Physical Exam Narrative Exam Narrative: General: Patient was lying in bed did appear to be uncomfortable secondary to the pain Head: Atraumatic, normocephalic Eyes: PERRL bilaterally, EOMI bilaterally, no conjunctival injection noted Neck: Soft, supple, trachea midline Cardiovascular: Regular rate and rhythm Respiratory: Clear to auscultation bilaterally Abdomen: No tenderness to palpation Extremities: Patient PT pulse on the left lower extremity was dopplerable . Compartments are soft and compressible he does have a left lower extremity swelling when compared to the right. Left leg is weaker than the right however this is not new this has been going on prior to his surgery he states. Neurological: Patient follow commands knew he was at [facility] year is 2024 Skin: Warm, dry, intact no rashes or lesions noted Const Vital Signs: 09/19/25 06:44 09/19/25 06:48 09/19/25 08:10 Temperature 98.4 F 98.4 F 98.2 F Temperature Source Oral Oral Oral Pulse Rate 98 98 76 Respiratory Rate 20 H 20 H 16 Blood Pressure 163/82 H 163/82 H 155/85 H Blood Pressure Mean 109 109 108 Pulse Ox 96 96 95 Oxygen Delivery Method Room Air Room Air Room Air 09/19/25 08:43 09/19/25 09:00 09/19/25 10:00 Temperature 97.8 F Temperature Source Temporal Pulse Rate 74 87 83 Respiratory Rate 14 14 16 Blood Pressure 152/81 H 151/81 H 142/92 H Blood Pressure Mean 104 104 108 Pulse Ox 99 99 99 Oxygen Delivery Method Room Air Room Air 09/19/25 12:22 Temperature Temperature Source Pulse Rate 91 Respiratory Rate 20 H Blood Pressure 107/67 Blood Pressure Mean 80 Pulse Ox 98 Oxygen Delivery Method Room Air MDM MDM MDM Narrative Medical decision making narrative: Patient is a 70-year-old male who presented to the emergency department chief complaint of bilateral lower extremity pain. On the differential diagnosis includes but limited to DVT, superficial venous thrombosis, electrolyte abnormality, ischemic limb. Once workup is obtained reviewed he will be reevaluated. Patient be given IV fluids, milligram of Dilaudid and gabapentin Patient's CBC reviewed and showed a white blood count of 10.5, hemoglobin 0.5, plate count of 509. Patient sodium is 137, potassium was 4.7, creatinine 1.22 indicating acute kidney injury as baseline is around 1. Patient's AST and ALT were 72 and 133 respectively do not have anything previously to compare to. Patient does have extensive clot burden noted to the left lower extremity from the external iliac vein, common femoral vein and femoral vein throughout. Popliteal vein is compressible and down is compressible. Patient is EKG reviewed showed sinus rhythm with PVCs noted with a rate of 95 bpm ME interval 156. Given his intractable pain, extensive clot burden will reach out to [facility] for transfer. Will discuss with them in regards to heparinization for the patient's DVT with recent surgery on his back At 1:30 PM clinic clinic [facility] I was able to discuss with the hospitalist in regards to transfer Dr. Lester who will accept the patient for transfer. Patient notified is agreeable this plan all question concerns answered. He states that he would recommend holding off on anticoagulation for now until further discussion evaluation with orthopedics. Lab Data Labs: Laboratory Results - last 24 hr 09/19/25 07:45 WBC 10.5 RBC 4.04 L Hgb 11.5 L Hct 35.3 L MCV 87.4 MCH 28.5 MCHC 32.6 RDW Std Deviation 44.5 H RDW Coeff of Malgorzata 13.8 Plt Count 509 H MPV 8.8 Immature Gran % (Auto) 1.500 H Neut % (Auto) 78.7 H Lymph % (Auto) 10.2 L [place] % (Auto) 8.2 Eos % (Auto) 1.0 Baso % (Auto) 0.4 Absolute Neuts (auto) 8.2 H Absolute Lymphs (auto) 1.07 Nucleated RBC % 0 PT 13.5 INR 1.0 APTT 34.8 Sodium 137 Potassium 4.7 Chloride 101 Carbon Dioxide 22.9 Anion Gap 13 BUN 26 H Creatinine 1.22 H Estim Creat Clear Calc 56.79 Est GFR (MDRD) Non-Af 65 BUN/Creatinine Ratio 21.5 H Glucose 125 H Calcium 9.3 Total Bilirubin 0.21 AST 72 H ALT 133 H Alkaline Phosphatase 387 H Total Protein 7.1 Albumin 3.5 Globulin 3.6 Albumin/Globulin Ratio 1.0 Discharge Plan Dx/Rx/DC Orders Clinical Impression: Previous back surgery, DVT (deep venous thrombosis), Bilateral leg pain Disposition Disposition: Acute Care Hospital [facility]
[2025-09-19] MEDS: 0.9% Normal Saline (1000mL) 1,000 ML 999 ML IV (07:43)
[2025-09-19 08:00] LABS: Hematocrit 35.3 % (40-54); Hemoglobin 11.5 g/dL (13.0-16.5); Immature Granulocytes Count 0.160 X10^3/uL (0.0-0.0); Mean Corp Hgb Conc 32.6 g/dL (32-36); Mean Corpuscular Volume 87.4 fL (80-94); Mean Platelet Vol. 8.8 fl (6.2-12.0); NRBC Flagged by Analyzer 0 % (0-5); Platelet Count 509 K/mm3 (150-450); RBC Distribution Width CV 13.8 % (11.6-14.6); RBC Distribution Width SD 44.5 fl (35.1-43.9); Red Blood Count 4.04 M/mm3 (4.6-6.2); White Blood Count 10.5 K/mm3 (4.4-11.0)
[2025-09-19 09:10] LABS: AST(SGOT) 72 U/L (<=37); Alanine Aminotransfer ALT/SGPT 133 U/L (<=46); Albumin, Serum 3.5 g/dL (3.4-4.8); Alkaline Phosphatase 387 U/L (40-129); Anion Gap 13 (5-15); BUN 26 mg/dL (4-19); BUN/Creat Ratio 21.5 RATIO (10-20); Calcium,Total 9.3 mg/dL (7.6-11.0); Carbon Dioxide 22.9 mmol/L (21.0-32.0); Chloride 101 mmol/L (98-108); Estimated Creatinine Clearance 56.79 ml/min (50-250); Globulin 3.6 g/dL (2.2-4.2); Glucose 125 mg/dL (70-99); Potassium 4.7 mmol/L (3.3-5.1)
--- NOTE | 2025-09-19 09:47 | CM.ED ---
Social Work Date of referral: 09/19/25 Reason for referral: Advanced Care Directives (ACD's) not on file Referred by: Social Work Identification Patient provided consent to social work visit. Patient appeared to be in distress/pain and wasn't answering questions so patient's spoke up and stated patient misspoke and doesn't have ACD's. provided education that if interested, it's a free service to the community that [facility] provides if interested. Britt Fontaine, CNC MACHINIST 2ND [employer]IFT, [employer]
[2025-09-19] MEDS: HYDROmorphone 0.5 MG/0.5 ML SYRINGE IV (11:10)
[2025-09-19 12:17] LABS: Prothrombin Time (Protime)PT. 13.5 SECONDS (11.7-14.9)
[2025-09-19 12:18] LABS: Partial Thromboplast Time 34.8 Seconds (24.1-36.2)
[2025-09-19] MEDS: Orphenadrine 60 MG/2 ML Ampul IV (13:10)
--- NOTE | 2025-09-19 15:17 | PCA ---
THIS US TOOK ACCEPTANCE INFO FROM BRIAN AT [facility]. PT ACCEPTED TO [facility] ROOM [address] BED 2 N2N IS [phone]
--- NOTE | 2025-09-19 15:22 | ED.RN ---
REPORT CALLED TO [facility], NURSE GE[place]
== END 2025-09-19 15:10 | disposition short-term general hospital (02) ==
PROVIDERS: Emergency Provider Emergency Medicine; PCP Nurse Practitioner Primary Care; Visit Provider Emergency Medicine
DX: I82.412 Acute embolism and thrombosis of left femoral vein (principal); I82.422 Acute embolism and thrombosis of left iliac vein; M79.604 Pain in right leg; F17.200 Nicotine dependence, unspecified, uncomplicated; Z98.1 Arthrodesis status
CPT/HCPCS: 80053; 85025; 85610; 85730; 93005; 93971; 96361; 96374; 96375; 96376; 99285; A4216; J2405